=== PATIENT | female | born 1980 | race Caucasian/White ===

== ENCOUNTER 2019-11-28 12:17 | Emergency (ER) | payer MEDICARE, MEDICAID, SELFPAY ==
[2019-11-28 13:01] VITALS: BP 95/55; PULSE 91; RESP 18; TEMP 37.3; O2SAT 97; BMI 33.2
[2019-11-28] MEDS: Ibuprofen 600 MG TABLET PO (14:05)
[2019-11-28] MEDS: Lidocaine HCl 2 % MPF 5 ML VIAL SUBCUT (14:07)
--- NOTE | 2019-11-28 14:49 | ED_ITS ---
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 Denies any other injuries. Not UTD on tetanus. Related Data Previous Rx's Medication Instructions Recorded naproxen 500 mg PO BID PRN #14 tab 11/28/19 Allergies Allergy/AdvReac Type Severity Reaction Status Date / Time morphine [MORPHINE] Allergy Intermediate NAUSEA, Verified 11/28/19 12:59 rash oxycodone [From PERCOCET] Allergy Intermediate ITCHY, rash Verified 11/28/19 12:59 penicillin V Allergy Intermediate hives Verified 11/28/19 12:59 simvastatin Allergy Intermediate rash Verified 11/28/19 12:59 hydrocodone [From VICODIN] Allergy Mild RASH Verified 11/28/19 12:59 amoxicillin [Amoxicillin] Allergy Unknown UNKNOWN Verified 11/28/19 12:59 Vicodin Allergy Intermediate rash Uncoded 11/28/19 12:59 Review of Systems Review of Systems: Yes all other systems are reviewed and are negative PMFSH Past Medical History Attestation statement: The following information was validated with the patient. Medical History Anxiety Depression Diabetes Migraine OCD (obsessive compulsive disorder) Panic disorder PTSD (post-traumatic stress disorder) Surgical History History of ankle surgery Previous section Social History Social History Advance Directives: No Advance Directives Information Provided: Yes Physical Exam Vital Signs: Vital Signs: Vital Signs Temp Pulse Resp BP Pulse Ox 11/28/19 13:01 99.2 F 91 18 95/55 L 97 Body Mass Index 33.2 Const: General: cooperative, healthy appearing, comfortable, no acute distress, well developed, alert, awake and Physically active Nutritional Appearance: average body habitus and well nourished Orientation/consciousness: patient oriented x3 Limitations: no limitations HENMT: Head: Yes normal to inspection, Yes No palpable skull fracture present, Yes normocephalic and Yes atraumatic Ears: hearing grossly normal bilaterally General nose exam: Normal external nose present Face and sinus: Yes normal facial exam Mouth: moist mucous membranes Eyes: General: appearance normal, both eyes and all related structures Visual Mejia: normal visual mejia by confrontation Alignment and Position: alignment normal Periorbital: periorbital findings normal Eyelids: Yes eyelids normal Conjunctivae: conjunctivae normal Sclerae: sclerae normal Pupils: Equal, round and reactive pupils present EOM: EOMs intact bilaterally Neck: Neck: Yes normal visual inspection, Yes full ROM, Yes no lymphadenopathy, Yes no meningeal signs, Yes trachea midline and Yes supple Chest: Chest palpation & inspection: normal inspection of the chest Resp: Effort & Inspection: normal respiratory effort and able to speak in complete sentences Auscultation: clear to auscultation bilaterally, no crackles, no rales, no rhonchi and no wheezes Cardio: Rate: regular rate Rhythm: regular rhythm Heart sounds: S1 normal heart sound present and S2 normal heart sound present Peripheral pulses: Peripheral pulses 2+ throughout GI: Inspection: Yes normal to inspection Palpation (GI): Soft to palpation, nontender and No hepatosplenomegaly present Percussion: Yes normal to percussion Auscultation: normal bowel sounds : General: Yes no CVA tenderness Back/Spine/Pelvis: Back: no CVA tenderness Cervical Spine: normal cervical lordosis and cervical ROM normal Thoracic/Lumbar Spine: thoracic and lumbar spine normal to inspection and thoraco-lumbar ROM normal Skin: General skin exam: no rashes or lesions noted, elasticity normal and turgor normal Trauma: no lacerations or abrasions Wounds: no wounds Hair: normal Nails: normal Neuro: General: patient oriented x3 and no meningeal signs Cranial nerves: Yes CN's II-XII intact bilaterally and Yes Equal, round and reactive pupils present Cognition (Neuro): normal cognition Gait exam (Neuro): Normal gait present Motor exam (neuro): 5/5 motor strength present throughout Extrem: General: Yes normal to inspection, Yes full ROM, Yes capillary refill normal, Yes no clubbing, cyanosis or edema, No no pedal edema, No no calf tenderness, Yes normal gait and No edema Right upper extremity: normal to inspection, full ROM, normal capillary refill and Extremity exam: right hand Details: laceration palm palmar aspect proximal Details: linear, superficial and involving subcutaneous tissue; not actively bleeding, not with foreign body present, not contaminated, not involving muscle tissue, without motor nerve function intact and without sensation intact; no edema Left upper extremity: normal to inspection, full ROM and normal capillary refill; no edema Right lower extremity: normal to inspection, full ROM and normal capillary refill; no edema Left lower extremity: normal to inspection, full ROM and normal capillary refill; no edema Psych: Appearance: grossly normal and well kempt Mental Status: mental status grossly normal Speech and movement: Normal speech and movement present and Clear speech present Affect: normal affect Attitude: cooperative Thought process: Normal thought process present Thought content: Normal thought content present Insight: Good insight present (Psych) Judgement: Good judgement present (Psych) Procedures Laceration Laceration 1: Site: hand Side (If applicable): right Size (cm): 1 Description: linear Depth: simple, single layer Local Anesthetic: lidocaine 2% Amount of anesthesia used (mL): 5 Pre-repair: wound explored, irrigated extensively and deep structures intact Skin layer closed with: nylon Size (cm): 4-0 Number of sutures: 3 Technique: simple, interrupted Discharge Plan Discharge Clinical Impression: Laceration Patient Disposition: Home, Self-Care Instructions: Laceration (ED) Prescriptions: New naproxen 500 mg tablet 500 mg PO BID PRN (Reason: pain) Qty: 14 RF: 0 Referrals: Chitra Ko PA [Emergency Midlevel Provider] - 10 days (for suture removal ) Print Language: Sami
--- NOTE | 2019-11-28 14:54 | PC.NURSE ---
Report given to oncoming nurse, Keri BOX. No further questions from Keri BOX. Provider aware.
== END 2019-11-28 15:10 | disposition home or self-care (01) ==
PROVIDERS: Emergency Provider Emergency Medicine; PCP Internal Medicine
DX: S61.411A Laceration without foreign body of right hand, initial encounter (principal); W26.8XXA Contact with other sharp object(s), not elsewhere classified, initial encounter; E11.9 Type 2 diabetes mellitus without complications; F17.200 Nicotine dependence, unspecified, uncomplicated; Y93.G3 Activity, cooking and baking; Y92.010 Kitchen of single-family (private) house as the place of occurrence of the external cause; Y99.9 Unspecified external cause status; Z79.899 Other long term (current) drug therapy
CPT/HCPCS: 12001; 90471; 90715; 99284

== ENCOUNTER 2019-12-08 10:27 | Emergency (ER) | payer MEDICARE, MEDICAID, SELFPAY ==
--- NOTE | 2019-12-08 10:32 | ED.RECABL ---
HPI - Recheck/Abnormal Lab/Rx General Chief Complaint: Wound/Laceration Stated Complaint: suture removal Time Seen by Provider: 12/08/19 10:31 Source: patient Mode of arrival: ambulatory Limitations: no limitations History of Present Illness HPI narrative: 39-year-old female with a past medical history of migraine headaches, PTSD, panic disorder, OCD, depression, anxiety and diabetes presenting to the ED for suture removal. Was treated in the ED on 11/28/2019 and sutures placed to right hand [address] Patient given naproxen and is taking as prescribed. Not given any antibiotics. Reports she noticed some mild increased pain and surrounding erythema that started yesterday. Denies any fevers, chills, drainage and weakness. Patient denies any other symptoms complaints or concerns at this time. Related Data Previous Rx's Medication Instructions Recorded naproxen 500 mg PO BID PRN #14 tab 11/28/19 meloxicam 7.5 mg tablet 7.5 mg PO DAILY #30 tab 11/30/19 doxycycline monohydrate 100 mg PO BID 10 Days #20 cap 12/08/19 Allergies Allergy/AdvReac Type Severity Reaction Status Date / Time morphine [MORPHINE] Allergy Intermediate NAUSEA, Verified 11/28/19 12:59 rash oxycodone [From PERCOCET] Allergy Intermediate ITCHY, rash Verified 11/28/19 12:59 penicillin V Allergy Intermediate hives Verified 11/28/19 12:59 simvastatin Allergy Intermediate rash Verified 11/28/19 12:59 hydrocodone [From VICODIN] Allergy Mild RASH Verified 11/28/19 12:59 amoxicillin [Amoxicillin] Allergy Unknown UNKNOWN Verified 11/28/19 12:59 Vicodin Allergy Intermediate rash Uncoded 11/28/19 12:59 Review of Systems Review of Systems: Yes all other systems are reviewed and are negative PMFSH Past Medical History Medical History Anxiety Depression Diabetes Migraine OCD (obsessive compulsive disorder) Panic disorder PTSD (post-traumatic stress disorder) Surgical History History of ankle surgery Previous section Social History Social History Alcohol intake: never Smoking Status: Current every day smoker Substance Use Type: Marijuana Substance Use Frequency: Occasionally Physical Exam Vital Signs: Vital Signs: Vital Signs Temp Pulse Resp BP Pulse Ox 12/08/19 10:33 98.1 F 89 16 151/88 H 100 Body Mass Index 33.2 vital signs have been reviewed as normal and appeared to be correct. Blood pressure normal. Heart rate normal. Respiration rate normal. Temperature normal. Oxygen saturation normal. Appearance: Alert. Oriented X3. No acute distress. Head: Normal external exam. Normocephalic. Eyes: EOMI. Conjunctiva and sclera normal. Eyelids normal. ENT: Moist mucous membranes. Neck: Normal inspection. Neck supple. FROM. CVS: Normal heart rate and rhythm. Heart sound normal. No murmurs noted. Pulses normal throughout. Respiratory: No respiratory distress. Painless inspiration. Breath sounds normal. No wheezes/rales/rhonchi noted. Chest nontender. No accessory muscle usage noted or decreased air movement noted. Abdomen: Soft and nontender. Bowel sounds normal in all 4 quadrants. No distention noted. No organomegaly noted. No visible injury noted. Back: No CVA tenderness. Full range of motion noted. Skin: Skin warm and dry. Normal skin color. Normal skin turgor. No rashes noted. Right hand between the thumb and index finger there is well-healing laceration with [address] with mild surrounding erythema and tender to palpation. No fluctuance or drainage noted or streaking. Extremities: No lower extremity edema. Extremities exhibit normal range of motion. Extremities nontender. Neuro: Oriented X 3. No motor deficit. No sensory deficit. Reflexes normal. Procedures Procedure Narrative Procedure Narrative: Sutures to right hand between the thumb and the index finger. Three sutures removed. Mild surrounding erythema. No drainage or streaking noted. Patient tolerated procedure well. Wound was cleaned after sutures removed. No complications. Discharge Plan Discharge Clinical Impression: Encounter for removal of sutures Cellulitis Qualifiers: Site of cellulitis: extremity Site of cellulitis of extremity: upper extremity Laterality: right Qualified Code(s): L03.113 - Cellulitis of right upper limb Patient Disposition: Home, Self-Care Instructions: Cellulitis (ED) Prescriptions: New doxycycline monohydrate 100 mg capsule 100 mg PO BID 10 Days Qty: 20 RF: 0 No Action meloxicam 7.5 mg tablet 7.5 mg PO DAILY Qty: 30 RF: 0 naproxen 500 mg tablet 500 mg PO BID PRN (Reason: pain) Qty: 14 RF: 0 Referrals: Po,Gurdeep Del Angel MD [Primary Care Provider] - 2 days Print Language: Eritrean
[2019-12-08 10:33] VITALS: BP 151/88; PULSE 89; RESP 16; TEMP 36.7; O2SAT 100; BMI 33.2
--- NOTE | 2019-12-08 10:42 | PC.NURSE ---
sutures removed by gilbert albert w/o apparent incident
== END 2019-12-08 11:00 | disposition home or self-care (01) ==
LOC: HO.ED 10:54
PROVIDERS: Emergency Provider Emergency Medicine; PCP Internal Medicine
DX: Z48.02 Encounter for removal of sutures (principal); E11.9 Type 2 diabetes mellitus without complications; F17.200 Nicotine dependence, unspecified, uncomplicated
CPT/HCPCS: 99283; 99284

== ENCOUNTER 2020-02-19 14:20 | Emergency (ER) | payer MEDICARE, MEDICAID, SELFPAY ==
[2020-02-19 16:06] VITALS: BP 168/87; PULSE 121; RESP 18; TEMP 37.1; O2SAT 95; BMI 35.1
--- NOTE | 2020-02-19 16:34 | ED.SKABFB ---
HPI - Skin/Abscess/Foreign Bdy General Chief complaint: Skin/Abscess/Foreign Body Stated complaint: cyst Time Seen by Provider: 02/19/20 16:09 Source: patient Mode of arrival: ambulatory History of Present Illness HPI narrative: 39 y.o. F with PMH of migraine headaches, PTSD, panic disorder, OCD, depression, anxiety and diabetes presenting to the emergency department with concern for wound to her abdomen. She states she has been having these over the past year and is unsure why. This spot she has underneath her xiphoid has been there for the past week and is not draining, very painful. She denies fevers or vomiting. She states the area is very sensitive. She does pick at her wounds on her abdomen. Denies IVDU. Related Data Home Medications Medication Instructions Recorded Confirmed clonazepam 1 mg tablet 1 mg PO BID 12/31/19 12/31/19 clonidine HCl 0.1 mg tablet 0.1 mg PO BEDTIME 12/31/19 12/31/19 empagliflozin 25 mg tablet 25 mg PO DAILY 12/31/19 12/31/19 insulin glargine 100 unit/mL (3 24 unit SUBCUT QAM ml 12/31/19 12/31/19 mL) subcutaneous pen quetiapine 100 mg tablet 400 mg PO BEDTIME tab 12/31/19 12/31/19 venlafaxine 150 mg 150 mg PO DAILY 12/31/19 12/31/19 capsule,extended release 24 hr meloxicam 7.5 mg tablet 7.5 mg PO DAILY 02/07/20 Previous Rx's Medication Instructions Recorded naproxen 500 mg PO BID PRN #14 tab 11/28/19 metformin 1,000 mg tablet 1,000 mg PO BID #60 tab 12/24/19 cyclobenzaprine 5 mg tablet 5 mg PO TID PRN #20 tab 01/05/20 albuterol sulfate 90 mcg/actuation 2 puff INHALATION Q4-6H PRN 30 02/03/20 aerosol inhaler Days #8.5 g Allergies Allergy/AdvReac Type Severity Reaction Status Date / Time morphine [MORPHINE] Allergy Intermediate NAUSEA, Verified 12/29/19 06:36 rash oxycodone [From PERCOCET] Allergy Intermediate ITCHY, rash Verified 12/29/19 06:36 penicillin V Allergy Intermediate hives Verified 12/29/19 06:36 simvastatin Allergy Intermediate rash Verified 12/29/19 06:36 hydrocodone [From VICODIN] Allergy Mild RASH Verified 12/29/19 06:36 amoxicillin [Amoxicillin] Allergy Unknown UNKNOWN Verified 11/28/19 12:59 Review of Systems Constitutional: Constitutional: Denies fever(s) and Denies headache(s) Eyes: Eyes: Reports no additional eye complaints ENT: Denies headache(s) Cardiovascular: Cardiovascular: Denies chest pain Respiratory: Respiratory: Denies cough Gastrointestinal: Gastrointestinal: Denies vomiting Musculoskeletal: Musculoskeletal: Reports no additional musculoskeletal complaints Integumentary/Breasts: Skin/Breast: Reports rash Neurologic: Denies headache(s) Hematologic/Lymphatic: Hematologic/Lymphatic: Denies easy bleeding PMFSH Past Medical History Medical History Anxiety and depression Asthma Crohn's disease Hypercholesterolemia Hypertension Migraine Obesity (BMI 30-39.9) OCD (obsessive compulsive disorder) Panic disorder PTSD (post-traumatic stress disorder) Seizure disorder Tobacco abuse Type 2 diabetes mellitus with hyperglycemia, with long-term current use of insulin Surgical History H/O arthroscopy H/O bilateral breast reduction surgery History of ankle surgery Previous section Family History Family History (Updated 12/29/19 @ 06:41 by NASRIN Soto) Father CVD (cerebrovascular disease) Diabetes Hypertension Mother Depression Chronic mental illness Maternal Grandmother Myocardial infarction CVD (cerebrovascular disease) Breast cancer Maternal Aunt Liver cancer Social History Social History Alcohol intake: never Smoking Status: Current every day smoker Substance Use Type: Marijuana Advance Directives: No Advance Directives Information Provided: Yes Physical Exam Vital Signs: Vital Signs: Last Vital Signs Temp 98.9 F 02/19/20 17:14 Pulse 107 H 02/19/20 17:14 Resp 16 02/19/20 17:14 BP 131/74 02/19/20 17:14 Pulse Ox 95 02/19/20 17:14 Body Mass Index 35.1 Const: Other: sitting upright, anxious Orientation/consciousness: patient oriented x3 HENMT: Head: Yes atraumatic Eyes: Pupils: Equal, round and reactive pupils present Neck: Neck: Yes supple Chest: Chest palpation & inspection: normal inspection of the chest Resp: Effort & Inspection: normal respiratory effort and able to speak in complete sentences Cardio: Rate: regular rate GI: Inspection: Yes obesity Back/Spine/Pelvis: Other: Normal range of motion Skin: Other: Multiple pustular lesions to the abdomen along the breast line, he has 1 area of induration to her central abdomen underneath her xiphoid process, no purulence, tenderness to palpation, erythema present also has a fluctuant abscess underneath left breast along the abdominal wall, mild tenderness to palpation Neuro: General: patient oriented x3 Cranial nerves: Yes Equal, round and reactive pupils present Extrem: General: Yes normal to inspection Course Course Course Narrative: 17:56- sign out given to Ozzie Lord, pending labs, repeat glucose POC. Will need antibiotics. Procedures Abscess I/D Site: abdomen Side (if applicable): left Local Anesthetic: other anesthetic (LMX) Technique: needle aspiration (small amount into the syringe, able to manually decompress ) Sent for culture/gram staining?: No Irrigation: No Packing used?: none Complications: pain MDM - Skin/Abscess/Foreign Bdy MDM Narrative Medical decision making narrative: 39-year-old female presenting to the emergency department for concerns of an abscess to her abdomen Vital significant for tachycardia- HR 121, nontoxic appearing, hemodynamically stable will check glucose POC since pt. is a diabetic. Will plan to needle decompress the wound on the left side and manually decompress her central abscess per attending (Dr. Wiseman) recommendation. Will need PO antibiotics. Tachycardia most likely secondary to her anxiety, will recheck once she gets analgesia. Discussed case with Dr. Wiseman who also evaluated the pt. Patient had LMX placed on the abscess areas. Needle decompression provided a trach for manual decompression of the left abscess. The abscess under her xiphoid process I was able to manually decompressed somewhat however patient endorses significant pain despite topical analgesia and asked me to stop. I discussed this with the attending and because of the location of the area will defer incision and drainage and refer her to general surgery. Will start her on antibiotics and give her general surgery follow-up. POC was checked and patient has a blood sugar in the high 300s, she reports compliance with her insulin. However because of her tachycardia and high blood sugar will check basic labs including lactic to r/o systemic illness. Will defer blood culture since she is afebrile. Will also plan to give her a liter fluids in the ED. Lab Data Labs: Lab Results 02/19/20 Range/Units 17:21 POC Glucose 381 H* (60-115) mg/dL Discharge Plan Discharge Clinical Impression: Hyperglycemia, Abscess Patient Disposition: Home, Self-Care Instructions: Abscess (ED) Additional Instructions: We are giving you antibiotics to go home with. Your blood sugar was elevated so we checked screening lab tests. We gave you some fluids. Please return to the emergency department if your symptoms do not improve after 48 hours of taking the antibiotics, worsening redness, worsening swelling, fevers, vomiting, or any other concerning symptoms. Place warm compresses 4 times a day to the sites to allow drainage. Keep the areas clean and dry. You may use the chlorohexadine soap once these areas area healed. Prescriptions: No Action metformin 1,000 mg tablet 1,000 mg PO BID Qty: 60 RF: 0 cyclobenzaprine 5 mg tablet 5 mg PO TID PRN (Reason: muscle spasm) Qty: 20 RF: 0 albuterol sulfate 90 mcg/actuation HFA aerosol inhaler 2 puff inhalation Q4-6H PRN (Reason: for muscle spasm) 30 Days Qty: 8.5 RF: 5 meloxicam 7.5 mg tablet 7.5 mg PO DAILY RF: 0 naproxen 500 mg tablet 500 mg PO BID PRN (Reason: pain) Qty: 14 RF: 0 venlafaxine [Effexor XR] 150 mg capsule,extended release 24hr 150 mg PO DAILY RF: 0 clonazepam 1 mg tablet 1 mg PO BID RF: 0 clonidine HCl 0.1 mg tablet 0.1 mg PO BEDTIME RF: 0 Lantus Solostar U-100 Insulin 100 unit/mL (3 mL) insulin pen 24 unit subcut QAM RF: 0 Jardiance 25 mg tablet 25 mg PO DAILY RF: 0 quetiapine [Seroquel] 100 mg tablet 400 mg PO BEDTIME RF: 0 Referrals: Shanel Adorno MD [Physician] - 2 days (call to schedule an appointment for further treatment of your abscess )
[2020-02-19] MEDS: Lidocaine 4 % Cream KIT 1 APPL TOPICAL (16:43)
[2020-02-19] MEDS: Acetaminophen 325 MG TABLET 650 MG PO (16:50)
[2020-02-19] MEDS: Ibuprofen 600 MG TABLET PO (16:50)
[2020-02-19 17:14] VITALS: BP 131/74; PULSE 107; RESP 16; TEMP 37.2; O2SAT 95
[2020-02-19 17:25] LABS: Glucose, Whole Blood 381 mg/dL (60-115)
--- NOTE | 2020-02-19 17:33 | PC.NURSE ---
LMX ALREADY APPLIED PT ABCESS AREA DRAINED BY VIRI GATES. PT UNBLE TO TOLERATE 2ND ABCESS DRAINAGE.
[2020-02-19 18:00] VITALS: BP 136/77; PULSE 86; RESP 14; TEMP 37.2; O2SAT 97
[2020-02-19] MEDS: 0.9 % Sodium Chloride 1,000 ML 999 ML IVCONT (18:48)
[2020-02-19 18:51] LABS: Basophils Absolute Auto 0.1 X10*3/uL (0.0-0.2); Basophils Percent Auto 0.4 % (0-2); Eosinophils Absolute Auto 0.2 X10*3/uL (0.0-0.4); Eosinophils Percent Auto 1.4 % (0-4); Hematocrit 41.8 % (37-47); Hemoglobin 13.8 g/dl (12.0-16.0); Imm Gran Abs Auto 0.12 X10*3/uL (0.00-0.03); Imm Gran Pct Auto 0.7 % (0.0-0.4); Lymphocytes Absolute Auto 3.3 X10*3/uL (1.2-4.9); Lymphocytes Percent Auto 18.8 % (20-40); MANUAL DIFF FLAG NO; Mean Corpuscular Hemoglobin 29.8 pg (27.0-33.0); Mean Corpuscular Volume 90.3 fL (80-98); Mean Platelet Volume 11.1 fL (9.4-12.3); Monocytes Absolute Auto 1.3 X10*3/uL (0.1-1.2); Monocytes Percent Auto 7.5 % (2-11); Neutrophils Absolute Auto 12.3 X10*3/uL (2.0-8.3); Neutrophils Percent Auto 71.2 % (45-73); Platelet Count 238 X10*3/uL (160-400); Red Blood Count 4.63 X10*6/uL (4.20-5.50); Red Cell Distribution Width 12.8 % (11.0-16.0); White Blood Count 17.3 X10*3/uL (4.8-10.8)
[2020-02-19 19:05] LABS: Acetone, serum QL Small (Negative)
[2020-02-19 19:10] LABS: Anion Gap 16 (12-20); Blood Urea Nitrogen 8 mg/dL (9-16); Calcium 8.9 mg/dL (8.4-10.2); Carbon Dioxide 26 mmol/L (22-29); Chloride 98 mmol/L (96-108); Creatinine Clr Calc Pharmacy 98.9; Estimated Glomerular Filt Rate > 60; Glucose Random 292 mg/dL (60-115); Potassium 4.2 mmol/l (3.3-5.1); Sodium 136 mmol/L (135-145)
[2020-02-19 20:02] LABS: Glucose, Whole Blood 253 mg/dL (60-115)
== END 2020-02-19 20:21 | disposition home or self-care (01) ==
PROVIDERS: Physician Assistant Medical; Emergency Provider Emergency Medicine; PCP Internal Medicine
DX: L02.211 Cutaneous abscess of abdominal wall (principal); E11.65 Type 2 diabetes mellitus with hyperglycemia; Z79.4 Long term (current) use of insulin; I10 Essential (primary) hypertension; F17.210 Nicotine dependence, cigarettes, uncomplicated
CPT/HCPCS: 10060; 36415; 80048; 82009; 82947; 83605; 85025; 96360; 99284

== ENCOUNTER 2020-06-01 12:41 | Outpatient (RCR) | payer MEDICARE, MEDICAID, SELFPAY | END 2020-06-22 11:33 | disposition home or self-care (01) | LOC: HO.WCC 12:41 | PROVIDERS: Visit Provider Surgery | DX: E11.9 Type 2 diabetes mellitus without complications (principal); T21.31XD Burn of third degree of chest wall, subsequent encounter; T31.0 Burns involving less than 10% of body surface; X08.8XXD Exposure to other specified smoke, fire and flames, subsequent encounter; L02.432 Carbuncle of left axilla | CPT/HCPCS: 11042; 16020; 99204; 99212; 99213 ==

== ENCOUNTER 2020-07-08 18:38 | Emergency (ER) | payer MEDICARE, MEDICAID, SELFPAY ==
--- NOTE | ~2020-07-08 | XR_ITS ---
EXAMINATION: XR FOREARM, LEFT CLINICAL INFORMATION: Wound COMPARISON: None TECHNIQUE: AP and lateral views of the left forearm were obtained. FINDINGS: No fracture or dislocation of the radial or ulnar seen. There is soft tissue irregularity of the volar soft tissues of the distal forearm. No radiopaque foreign body. XR/XR forearm LT 2V IMPRESSION: Soft tissue irregularity of the volar soft tissues of the distal forearm but no radiopaque foreign body or fracture seen.
[2020-07-08 18:44] VITALS: BP 137/85; PULSE 125; RESP 20; TEMP 36.9; O2SAT 96; BMI 35.7
--- NOTE | 2020-07-08 20:35 | ED_ITS ---
HPI - General Adult General Chief complaint: General Medical Stated complaint: Red inflamed skin Time Seen by Provider: 07/08/20 23:03 Source: patient Mode of arrival: ambulatory Limitations: no limitations History of Present Illness HPI narrative: 39-year-old female presents with wound to left forearm. States that there is some erythema around the wound, and reports that her aunt who is a wound care provider states that she needs IV antibiotics. She does have intermittent subjective fevers and chills, and has pain to the left forearm. She does not report any other symptoms at this time. Denies chest pain or pressure, palpitations, shortness of breath, abdominal pain, abdominal distention, dysuria, hematuria, nausea, vomiting, diarrhea, constipation, melena, hematochezia, any other concerning symptoms. She does have full range of motion to all extremities, does not report any swelling. Onset (ago): day(s) (Three) Location: left and upper extremity Radiation: non-radiation Severity: moderate Severity scale (1-10): 7 Quality: burning and aching Pain Consistency: constant Relieving factors: none Associated symptoms: fever/chills Related Data Home Medications Medication Instructions Recorded Confirmed clonazepam 1 mg tablet 1 mg PO BID 12/31/19 06/01/20 clonidine HCl 0.1 mg tablet 0.1 mg PO BEDTIME 12/31/19 06/01/20 insulin glargine 100 unit/mL (3 24 unit SUBCUT QAM ml 12/31/19 06/01/20 mL) subcutaneous pen quetiapine 100 mg tablet 400 mg PO BEDTIME tab 12/31/19 06/01/20 venlafaxine 150 mg See Rx Instructions PO DAILY 06/01/20 06/01/20 capsule,extended release 24 hr Previous Rx's Medication Instructions Recorded metformin 1,000 mg tablet 1,000 mg PO BID #60 tab 12/24/19 cyclobenzaprine 5 mg tablet 5 mg PO TID PRN #20 tab 01/05/20 cephalexin [Keflex] 500 mg PO Q8H 10 Days #30 cap 02/19/20 albuterol sulfate 90 mcg/actuation 2 puff INHALATION Q4-6H PRN 30 05/26/20 aerosol inhaler Days #8.5 g empagliflozin 25 mg tablet 25 mg PO DAILY #30 tab 05/26/20 pen needle, diabetic 31 gauge x #50 ea 05/26/20 5/16 cephalexin 500 mg tablet 500 mg PO QID 10 Days #40 tab 05/30/20 silver sulfadiazine 1 % topical 1 appl TOPICAL DAILY #25 g 05/30/20 cream doxycycline monohydrate 100 mg 100 mg PO BID 10 Days #20 cap 05/31/20 capsule omeprazole 20 mg capsule,delayed 20 mg PO DAILY #30 cap 06/01/20 release sumatriptan succinate 50 mg tablet See Rx Instructions PO .COMPLEX 06/30/20 #10 tab doxycycline monohydrate 100 mg PO BID 10 Days #20 tab 07/09/20 Allergies Allergy/AdvReac Type Severity Reaction Status Date / Time morphine [MORPHINE] Allergy Intermediate NAUSEA, Verified 07/08/20 18:47 rash oxycodone [From PERCOCET] Allergy Intermediate ITCHY, rash Verified 07/08/20 18:47 penicillin V Allergy Intermediate hives Verified 07/08/20 18:47 simvastatin Allergy Intermediate rash Verified 07/08/20 18:47 hydrocodone [From VICODIN] Allergy Mild RASH Verified 07/08/20 18:47 amoxicillin [Amoxicillin] Allergy Unknown UNKNOWN Verified 07/08/20 18:47 Review of Systems Review of Systems: Constitutional: No Fever, No Chills ENT/Mouth: No Ear Pain, No Hoarseness, No sore throat Eyes: No Eye Pain, No Swelling, No Redness, No Foreign Body Cardiovascular: No Chest Pain, No SOB Respiratory: No Cough, No Dyspnea Gastrointestinal: No Nausea, No Vomiting, No Diarrhea, No abdominal Pain Genitourinary: No Dysuria, No Hematuria Musculoskeletal: positive left forearm pain, No Myalgias, No Joint Swelling Skin: Positive wound to left forearm, No Skin lacerations, No rash Neuro: No Weakness, No Numbness, No Paresthesias, No Loss of Consciousness, No Dizziness, No Headache Psych: No Anxiety/Panic, No Depression Heme/Lymph: no easy bruising, no Lymphadenopathy Endocrine: No Polyuria, No Polydipsia Yes all other systems are reviewed and are negative [facility] Past Medical History Attestation statement: The following information was validated with the patient. Source: old records reviewed Medical History Anxiety and depression Asthma Crohn's disease Hypercholesterolemia Hypertension Migraine Obesity (BMI 30-39.9) OCD (obsessive compulsive disorder) Panic disorder PTSD (post-traumatic stress disorder) Seizure disorder Tobacco abuse Type 2 diabetes mellitus with hyperglycemia, with long-term current use of insulin Surgical History H/O arthroscopy H/O bilateral breast reduction surgery History of ankle surgery Previous section Family History Family History Father CVD (cerebrovascular disease) Diabetes Hypertension Mother Depression Chronic mental illness Maternal Grandmother Myocardial infarction CVD (cerebrovascular disease) Breast cancer Maternal Aunt Liver cancer Social History Social History Alcohol intake: never Smoking Status: Current every day smoker Cigarettes Per Day: 6 Substance Use Type: Marijuana Advance Directives: No Advance Directives Information Provided: No Patient : No Physical Exam Vital Signs: Vital Signs: Last Vital Signs Temp 96.9 F 07/08/20 22:06 Pulse 100 07/08/20 22:06 Resp 18 07/08/20 22:06 BP 137/69 07/08/20 22:06 Pulse Ox 97 07/08/20 22:06 Body Mass Index 35.7 Appearance: Alert. Oriented X3. No acute distress. Eyes: Pupils equal, round and reactive to light. ENT: Pharynx normal. Neck: Normal inspection. Neck supple. CVS: Normal heart rate and rhythm. Pulses normal. Respiratory: No respiratory distress. Breath sounds normal. Abdomen: Soft and nontender. Skin: 0.5 mm in diameter circular wound to the mid forearm, pink skin circumferentially approximately 3 cm around this ulceration. Skin warm and dry. Normal skin color. Normal skin turgor. Extremities: Full range of motion to all extremities, brisk capillary refill and equal pulses. No indication of tendon injury. Neuro: No motor deficit. No sensory deficit. Course Course Course Narrative: 39-year-old female presents with wound to the left forearm. States that her mother or her aunt is a wound care provider at this hospital and they recommended that she present to the emergency department for evaluation and possible IV antibiotics. Will order CBC, Chem 7, lactic, cultures and x-ray of the left forearm. Wound is circular, ulcerated, with erythema approximately 3 cm in diameter surrounding the approximately 2 mm wound. Patient stated that she has in 10 on 10 pain, asking for Dilaudid, stating that that is the only medication that wor ks for her. She was updated that Dilaudid is inappropriate care. She was offered Motrin which she accepted. White count is elevated at 18.4, lactic acid is 1.4 x-ray show soft tissue inflammation without foreign body or bone involvement. Discussion with hospitalist regarding plan of care. 10:30 p.m. Hospitalist does not feel that patient meets admission criteria as patient is not septic. Will complete IV antibiotics and then discharge home with p.o. antibiotics. Will refer to Wound Clinic. Patient verbalized understanding of and agrees to plan of care discharge home. Consultations Consultation #1: [facility] Medical Decision Making Lab Data Result diagrams: 07/08/20 21:32 07/08/20 21:32 Labs: Lab Results 07/08/20 07/08/20 07/08/20 Range/Units 21:32 21:32 21:36 WBC 18.4 H (4.8-10.8) X10*3/uL RBC 4.89 (4.20-5.50) X10*6/uL Hgb 15.0 (12.0-16.0) g/dl Hct 45.7 (37-47) % MCV 93.5 (80-98) fL MCH 30.7 (27.0-33.0) pg MCHC 32.8 (31.0-35.0) g/dl RDW 13.1 (11.0-16.0) % Plt Count 235 (160-400) X10*3/uL MPV 11.2 (9.4-12.3) fL Immature Gran % (Auto) Cancelled Neut % (Auto) Cancelled Lymph % (Auto) Cancelled Grundy % (Auto) Cancelled Eos % (Auto) Cancelled Baso % (Auto) Cancelled Lymph # (Auto) Cancelled Grundy # (Auto) Cancelled Eos # (Auto) Cancelled Baso # (Auto) Cancelled Abs Immat Gran (auto) Cancelled Absolute Neuts (auto) Cancelled Absolute Nucleated RBC 0.000 (0.0-0.012) X10*3/uL Nucleated RBC % (auto) 0.0 (0.0-0.2) /100WBC Neutrophils % (Manual) 64 (45-73) % Band Neutrophils % 2 L (3-5) % Lymphocytes % (Manual) 27 (20-40) % Monocytes % (Manual) 5 (2-11) % Eosinophils % (Manual) 1 (0-4) % Basophils % (Manual) 1 (0-1) % Abs Neuts (Manual) 12.1 H (2.2-7.9) X10*3/uL Lymphocytes # (Manual) 5.0 H (0.6-4.8) X10*3/uL Monocytes # (Manual) 0.9 (0.0-1.2) X10*3/uL Eosinophils # (Manual) 0.2 (0.0-0.8) X10*3/UL Basophils # (Manual) 0.2 (0.0-0.3) X10*3/uL Toxic Vacuolation PRESENT Platelet Estimate NORMAL (NORMAL) Plt Morphology Comment NORMAL RBC Morphology NORMAL Sodium 139 (135-145) mmol/L Potassium 3.9 (3.3-5.1) mmol/L Chloride 104 (96-108) mmol/L Carbon Dioxide 23 (22-29) mmol/L Anion Gap 16 (12-20) BUN 11 (9-16) mg/dL Creatinine 0.74 (0.5-1.4) mg/dL Estim Creat Clear Calc 98.4 Estimated GFR > 60 Random Glucose 199 H (60-115) mg/dL Lactic Acid 1.4 (0.5-2.0) mmol/L Calcium 9.4 (8.4-10.2) mg/dL Discharge Plan Discharge Clinical Impression: Cellulitis Qualifiers: Site of cellulitis: extremity Site of cellulitis of extremity: upper extremity Laterality: left Qualified Code(s): L03.114 - Cellulitis of left upper limb Patient Disposition: Home, Self-Care Instructions: Cellulitis (ED) Additional Instructions: You were evaluated for wound to the left forearm. X-rays are negative for osteo. We discussed this case with the hospitalist, you do not fit the criteria for admission. Please take doxycycline every 12 hours for the next 10 days. Please be aware that doxycycline has a significant skin reaction when exposed to sunlight. Please wear long sleeves and hat when going outside. Use Tylenol or Motrin as needed for pain management. At this time we cannot prescribe any narcotics for this illness. Thank you for choosing this emergency department for evaluation. Please follow-up with primary care physician as needed. Return to the emergency department for any new, concerning, or worsening symptoms. Prescriptions: New doxycycline monohydrate 100 mg tablet 100 mg PO BID 10 Days Qty: 20 RF: 0 No Action metformin 1,000 mg tablet 1,000 mg PO BID Qty: 60 RF: 0 cyclobenzaprine 5 mg tablet 5 mg PO TID PRN (Reason: muscle spasm) Qty: 20 RF: 0 albuterol sulfate 90 mcg/actuation HFA aerosol inhaler 2 puff inhalation Q4-6H PRN (Reason: for muscle spasm) 30 Days Qty: 8.5 RF: 5 Jardiance 25 mg tablet 25 mg PO DAILY Qty: 30 RF: 3 (DME) pen needle, diabetic [BD Ultra-Fine Short Pen Needle] 31 gauge x 5/16 needle See Rx Instructions .ROUTE .MEDSUPPLY Qty: 50 RF: 5 silver sulfadiazine [Silvadene] 1 % cream 1 appl topical DAILY Qty: 25 RF: 0 doxycycline monohydrate 100 mg capsule 100 mg PO BID 10 Days Qty: 20 RF: 0 sumatriptan succinate 50 mg tablet See Rx Instructions PO .COMPLEX Qty: 10 RF: 1 cephalexin [Keflex] 500 mg capsule 500 mg PO Q8H 10 Days Qty: 30 RF: 0 clonazepam 1 mg tablet 1 mg PO BID RF: 0 clonidine HCl 0.1 mg tablet 0.1 mg PO BEDTIME RF: 0 Lantus Solostar U-100 Insulin 100 unit/mL (3 mL) insulin pen 24 unit subcut QAM RF: 0 quetiapine [Seroquel] 100 mg tablet 400 mg PO BEDTIME RF: 0 omeprazole 20 mg capsule,delayed release(DR/EC) 20 mg PO DAILY Qty: 30 RF: 2 venlafaxine [Effexor XR] 150 mg capsule,extended release 24hr See Rx Instructions PO DAILY RF: 0 cephalexin 500 mg tablet 500 mg PO QID 10 Days Qty: 40 RF: 0 Referrals: Wound [facility] [Outside] - 2 days (Please follow-up with wound clinic.) Interventions: ED Discharge Assessment Last Done: 07/09/20 00:19 Discharge Date/Time: 07/09/20 00:19
[2020-07-08] MEDS: Doxycycline Hyclate 100 MG in 0.9 % Sodium Chloride 250 ML 166.67 MG IV (21:38)
[2020-07-08 21:42] LABS: Mean Corpuscular HGB Conc 32.8 g/dl (31.0-35.0)
[2020-07-08 21:50] LABS: Hematocrit 45.7 % (37-47); Mean Corpuscular Hemoglobin 30.7 pg (27.0-33.0); Mean Corpuscular Volume 93.5 fL (80-98); Mean Platelet Volume 11.2 fL (9.4-12.3); Platelet Count 235 X10*3/uL (160-400); Red Blood Count 4.89 X10*6/uL (4.20-5.50); Red Cell Distribution Width 13.1 % (11.0-16.0); White Blood Count 18.4 X10*3/uL (4.8-10.8)
[2020-07-08 21:59] LABS: Lactic Acid 1.4 mmol/L (0.5-2.0)
[2020-07-08 22:01] LABS: Anion Gap 16 (12-20); Blood Urea Nitrogen 11 mg/dL (9-16); Calcium 9.4 mg/dL (8.4-10.2); Carbon Dioxide 23 mmol/L (22-29); Chloride 104 mmol/L (96-108); Creatinine Clr Calc Pharmacy 98.4; Estimated Glomerular Filt Rate > 60; Glucose Random 199 mg/dL (60-115); Potassium 3.9 mmol/L (3.3-5.1); Sodium 139 mmol/L (135-145)
[2020-07-08 22:06] VITALS: BP 137/69; PULSE 100; RESP 18; TEMP 36.1; O2SAT 97
[2020-07-08] MEDS: 0.9 % Sodium Chloride 1,000 ML 999 ML IVCONT (22:15)
[2020-07-08 22:16] LABS: Band Neutrophils Percent 2 % (3-5); Basophils Abs Manual 0.2 X10*3/uL (0.0-0.3); Basophils Percent Manual 1 % (0-1); Eosinophils Absolute Manual 0.2 X10*3/UL (0.0-0.8); Eosinophils Percent Manual 1 % (0-4); Lymphocytes Percent Manual 27 % (20-40); Monocytes Absolute Manual 0.9 X10*3/uL (0.0-1.2); Monocytes Percent Manual 5 % (2-11); Neutrophils Absolute Manual 12.1 X10*3/uL (2.2-7.9); Neutrophils Percent Manual 64 % (45-73); RBC Morphology NORMAL
[2020-07-08 22:17] LABS: Platelet Estimate NORMAL (NORMAL); Platelet Morphology Comment NORMAL; Toxic Vacuolation PRESENT
== END 2020-07-09 00:19 | disposition home or self-care (01) ==
PROVIDERS: Nurse Practitioner Family; Emergency Provider Student in an Organized Health Care Education/Training Program; PCP Internal Medicine
DX: L03.114 Cellulitis of left upper limb (principal); S51.802A Unspecified open wound of left forearm, initial encounter; X58.XXXA Exposure to other specified factors, initial encounter; M79.632 Pain in left forearm; E11.9 Type 2 diabetes mellitus without complications; I10 Essential (primary) hypertension; E78.00 Pure hypercholesterolemia, unspecified; F17.210 Nicotine dependence, cigarettes, uncomplicated; F12.90 Cannabis use, unspecified, uncomplicated; Z79.4 Long term (current) use of insulin; Y93.9 Activity, unspecified; Y92.9 Unspecified place or not applicable; Y99.9 Unspecified external cause status
CPT/HCPCS: 36415; 73090; 80048; 83605; 85007; 85027; 87040; 96361; 96365; 99283; 99284

== ENCOUNTER 2020-10-30 15:57 | Emergency (ER) | payer MEDICARE, MEDICAID, SELFPAY ==
--- NOTE | ~2020-10-30 | XR_ITS ---
EXAMINATION: XR KNEE, RIGHT CLINICAL INFORMATION: Status post knee injury. Now presents with pain right knee. COMPARISON: None TECHNIQUE: Four views of the right knee. FINDINGS: The tricompartment joint space is maintained normal. There is no visible loose bodies acute fracture or dislocation. The soft tissues are normal. No abnormal joint effusion seen. XR/XR knee RT 4V IMPRESSION: Unremarkable right knee exam.
[2020-10-30 16:05] VITALS: BP 160/90; PULSE 116; RESP 16; TEMP 36.8; O2SAT 98; BMI 34.9
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
[2020-10-30 19:44] VITALS: BP 130/80; PULSE 99; RESP 16; TEMP 36.9; O2SAT 93
[2020-10-30] MEDS: Ketorolac Tromethamine 15 MG/ML VIAL IM (20:04)
== END 2020-10-30 20:21 | disposition home or self-care (01) ==
PROVIDERS: Emergency Provider Emergency Medicine; PCP Internal Medicine
DX: M25.561 Pain in right knee (principal); F12.90 Cannabis use, unspecified, uncomplicated; F33.1 Major depressive disorder, recurrent, moderate; Z79.899 Other long term (current) drug therapy
CPT/HCPCS: 73564; 96372; 99284; J1885

== ENCOUNTER 2020-11-04 12:33 | Emergency (ER) | payer MEDICARE, MEDICAID, SELFPAY ==
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
--- NOTE | ~2020-11-04 | US_ITS ---
EXAMINATION: US VENOUS ULTRASOUND WITH DOPPLER LOWER EXTREMITY, RIGHT CLINICAL INFORMATION: Swelling and pain. Rule out DVT. COMPARISON: None TECHNIQUE: Ultrasound of the deep veins is performed from the hip to the calf with compression sonography and color and pulse Doppler assessment. Spectral analysis with color-flow imaging is performed. FINDINGS: There is normal venous compression and respiratory variation and augmented flow. The visualized common femoral vein, superficial femoral vein, profunda femoral vein, popliteal vein, and the trifurcation region shows no evidence of deep venous thrombosis. There is no significant popliteal fossa cyst. US/US venous duplex LE RT IMPRESSION: No DVT demonstrated in the right lower extremity.
[2020-11-04 13:23] VITALS: BP 143/94; PULSE 115; RESP 18; TEMP 36.9; O2SAT 98; BMI 29.0
[2020-11-04 14:00] VITALS: BP 149/87; PULSE 99; RESP 14; TEMP 36.8; O2SAT 96
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
[2020-11-04] MEDS: oxyCODONE HCl Immed Release 5 MG TABLET PO (14:38)
[2020-11-04 15:20] LABS: MANUAL DIFF FLAG NO
[2020-11-04 15:21] LABS: Basophils Absolute Auto 0.1 X10*3/uL (0.0-0.2); Basophils Percent Auto 0.4 % (0-2); Eosinophils Absolute Auto 0.2 X10*3/uL (0.0-0.4); Eosinophils Percent Auto 1.6 % (0-4); Hematocrit 41.1 % (37-47); Hemoglobin 13.9 g/dl (12.0-16.0); Imm Gran Abs Auto 0.08 X10*3/uL (0.00-0.03); Imm Gran Pct Auto 0.6 % (0.0-0.4); Lymphocytes Absolute Auto 3.6 X10*3/uL (1.2-4.9); Lymphocytes Percent Auto 25.4 % (20-40); Mean Corpuscular HGB Conc 33.8 g/dl (31.0-35.0); Mean Corpuscular Hemoglobin 30.3 pg (27.0-33.0); Mean Corpuscular Volume 89.5 fL (80-98); Mean Platelet Volume 11.1 fL (9.4-12.3); Monocytes Absolute Auto 0.9 X10*3/uL (0.1-1.2); Monocytes Percent Auto 6.2 % (2-11); Neutrophils Absolute Auto 9.2 X10*3/uL (2.0-8.3); Neutrophils Percent Auto 65.8 % (45-73); Platelet Count 222 X10*3/uL (160-400); Red Blood Count 4.59 X10*6/uL (4.20-5.50); Red Cell Distribution Width 12.6 % (11.0-16.0)
[2020-11-04 15:30] LABS: Prothrombin Time 11.1 SEC (9.9-13.0)
[2020-11-04 15:33] LABS: Partial Thromboplastin Time 33.9 SEC (24.1-38.0)
[2020-11-04 15:35] LABS: Anion Gap 12 (12-20); Blood Urea Nitrogen 5 mg/dL (9-16); Calcium 8.8 mg/dL (8.4-10.2); Carbon Dioxide 25 mmol/L (22-29); Chloride 99 mmol/L (96-108); Creatinine Clr Calc Pharmacy 106.2; Estimated Glomerular Filt Rate > 60; Glucose Random 336 mg/dL (60-115); Potassium 4.2 mmol/L (3.3-5.1); Sodium 132 mmol/L (135-145)
[2020-11-04] MEDS: diphenhydrAMINE HCL 25 MG TABLET PO (16:32)
[2020-11-04] MEDS: HYDROmorphone HCl 2 MG TABLET PO (17:18)
== END 2020-11-04 17:30 | disposition home or self-care (01) ==
PROVIDERS: Physician Assistant; Emergency Provider Emergency Medicine; PCP Internal Medicine
DX: S93.401A Sprain of unspecified ligament of right ankle, initial encounter (principal); L03.115 Cellulitis of right lower limb; F12.90 Cannabis use, unspecified, uncomplicated; R60.0 Localized edema; X58.XXXA Exposure to other specified factors, initial encounter; Y93.9 Activity, unspecified; Y92.9 Unspecified place or not applicable; Y99.9 Unspecified external cause status; Z79.899 Other long term (current) drug therapy
CPT/HCPCS: 36415; 73610; 80048; 85025; 85610; 85730; 93971; 99284; Q0163

== ENCOUNTER → 2020-11-07 08:33 | Outpatient (BNVA) | payer MEDICARE, MEDICAID, SELFPAY | PROVIDERS: Visit Provider Physician Assistant | DX: S80.01XA Contusion of right knee, initial encounter (principal); L03.90 Cellulitis, unspecified | CPT/HCPCS: 99202 ==

== ENCOUNTER 2020-11-10 13:53 | Outpatient (RCR) | payer MEDICARE, MEDICAID, SELFPAY | END 2020-11-21 14:45 | disposition home or self-care (01) | LOC: HO.WCC 13:53 | PROVIDERS: PCP Internal Medicine; Visit Provider Physician Assistant | DX: E11.628 Type 2 diabetes mellitus with other skin complications (principal); L02.415 Cutaneous abscess of right lower limb; S80.01XA Contusion of right knee, initial encounter; E11.65 Type 2 diabetes mellitus with hyperglycemia; F17.210 Nicotine dependence, cigarettes, uncomplicated | CPT/HCPCS: 87071; 87077; 87186; 87205; 97597; 99212 ==

== ENCOUNTER 2020-11-21 09:45 | Outpatient (REF) | payer MEDICARE, MEDICAID, SELFPAY ==
--- NOTE | ~2020-11-21 | XR_ITS ---
EXAMINATION: KNEE X-RAY CLINICAL INFORMATION: Pain COMPARISON: Previous x-ray 10/30/2020 TECHNIQUE: [place] view FINDINGS: No fracture or dislocation is seen. Patellofemoral alignment appears normal on the sunrise view. XR/XR knee RT 1V IMPRESSION: Normal sunrise view of the right knee.
== END 2020-11-21 09:46 | disposition home or self-care (01) ==
LOC: HO.HOSX 09:45
PROVIDERS: Visit Provider Physician Assistant
DX: S80.01XA Contusion of right knee, initial encounter (principal)
CPT/HCPCS: 73560; 99212

== ENCOUNTER 2020-12-05 15:31 | Emergency (ER) | payer MEDICARE, MEDICAID, SELFPAY ==
--- NOTE | ~2020-12-05 | CT_ITS ---
EXAMINATION: CT ABDOMEN AND PELVIS WITH CONTRAST CLINICAL INFORMATION: Chronic disease. Increased gas. Rule out bowel obstruction. COMPARISON: CT abdomen pelvis November 13, 2019 TECHNIQUE: Multidetector volumetric images were obtained from the superior aspect of the liver through the pubic symphysis following administration 85 mL of Omnipaque 350 intravenous contrast. Sagittal and coronal reformatted images were obtained on the technologist's workstation. This CT examination was performed using dose optimization techniques as appropriate, variously including the following: *Automated exposure control *Adjustment of mA and/or kV according to patient size (this includes techniques or standardized protocols for targeted exams where dose is matched to indication/reason for exam; i.e. extremities or head) *Use of iterative reconstruction technique DLP: 660 mGy-cm FINDINGS: Visualized lung bases are well aerated. The liver is mildly enlarged and demonstrates diffusely decreased attenuation. The gallbladder is normal in appearance. The pancreas, spleen and adrenal glands are unremarkable. Medial splenule again noted. Symmetrically enhancing kidneys. No hydronephrosis bilaterally. Loops of small and large bowel are normal in caliber. Mild colonic diverticulosis without CT evidence to suggest active diverticulitis. Normal appendix. Normal caliber abdominal aorta. No retroperitoneal lymphadenopathy. The bladder is normal in appearance. Unremarkable CT appearance of the uterus. 2.5 cm left adnexal cyst. There is a small amount of free pelvic fluid, nonspecific but possibly physiologic in a female of this age. Shotty bilateral inguinal lymph nodes again noted. Mild diffuse degenerative changes spine. CT/CT abdomen pelvis w con IMPRESSION: 1. No CT evidence for acute abnormality within the abdomen or pelvis. 2. Mild hepatomegaly with diffusely decreased attenuation suggesting hepatic steatosis. Correlation with liver enzymes recommended. 3. Mild colonic diverticulosis. 4. Small amount of free pelvic fluid, nonspecific but possibly physiologic in a female of this age.
--- NOTE | ~2020-12-05 | XR_ITS ---
EXAMINATION: XR CHEST CLINICAL INFORMATION: Shortness of breath and cough COMPARISON: Chest x-ray November 13, 2019 TECHNIQUE: 2 views of the chest were obtained. FINDINGS: Cardiac silhouette is normal in size. The lungs are adequately aerated. There is no lobar consolidation. No pleural effusion or pneumothorax. Mild degenerative changes of the spine. XR/XR chest 2V IMPRESSION: No acute pulmonary pathology.
[2020-12-05 16:49] VITALS: BP 122/79; PULSE 100; RESP 18; TEMP 36.8; O2SAT 95; BMI 32.8
[2020-12-05 19:44] LABS: Basophils Absolute Auto 0.1 X10*3/uL (0.0-0.2); Basophils Percent Auto 0.3 % (0-2); Eosinophils Absolute Auto 0.2 X10*3/uL (0.0-0.4); Eosinophils Percent Auto 1.2 % (0-4); Hematocrit 44.4 % (37-47); Hemoglobin 14.7 g/dl (12.0-16.0); Imm Gran Pct Auto 0.6 % (0.0-0.4); Lymphocytes Absolute Auto 4.2 X10*3/uL (1.2-4.9); MANUAL DIFF FLAG SCAN; Mean Corpuscular HGB Conc 33.1 g/dl (31.0-35.0); Mean Corpuscular Hemoglobin 29.9 pg (27.0-33.0); Mean Corpuscular Volume 90.2 fL (80-98); Monocytes Percent Auto 6.7 % (2-11); Neutrophils Absolute Auto 9.9 X10*3/uL (2.0-8.3); Neutrophils Percent Auto 64.2 % (45-73); Platelet Count 219 X10*3/uL (160-400); Red Blood Count 4.92 X10*6/uL (4.20-5.50); Red Cell Distribution Width 12.8 % (11.0-16.0); SCAN SMEAR FLAG 1; White Blood Count 15.4 X10*3/uL (4.8-10.8)
[2020-12-05 20:02] LABS: Alanine Aminotransferase 29 U/L (0-31); Albumin Level 4.2 g/dL (3.5-5.0); Alkaline Phosphatase 92 U/L (39-117); Anion Gap 15 (12-20); Aspartate Amino Transferase 28 U/L (5-31); Bilirubin Total 0.3 mg/dL (0.0-1.0); Blood Urea Nitrogen 8 mg/dL (9-16); Calcium 9.7 mg/dL (8.4-10.2); Carbon Dioxide 31 mmol/L (22-29); Chloride 91 mmol/L (96-108); Creatinine Clr Calc Pharmacy 68.9; Estimated Glomerular Filt Rate > 60; Glucose Random 545 mg/dL (60-115); Sodium 133 mmol/L (135-145); Total Protein 8.2 g/dL (6.5-8.0)
[2020-12-05 20:10] LABS: Alanine Aminotransferase 30 U/L (0-31); Albumin Level 4.1 g/dL (3.5-5.0); Alkaline Phosphatase 91 U/L (39-117); Aspartate Amino Transferase 28 U/L (5-31); Bilirubin Direct < 0.2 mg/dL (0.0-0.5); Bilirubin Total 0.3 mg/dL (0.0-1.0); Lipase 73 U/L (8-78); Total Protein 8.1 g/dL (6.5-8.0)
[2020-12-05 20:17] LABS: SLIDE REVIEW VERIFIED
--- NOTE | 2020-12-05 20:22 | ED.ABDPAIN ---
HPI - Abdominal Pain General Chief Complaint: Abdominal Pain <Campbell Lawler MD - Last Filed: 12/05/20 22:11> Stated Complaint: issue with stomach acids, multiple complaints <Campbell Lawler MD - Last Filed: 12/05/20 22:11> Time Seen by Provider: 12/05/20 20:12 <Campbell Lawler MD - Last Filed: 12/05/20 22:11> Source: patient <Campbell Lawler MD - Last Filed: 12/05/20 22:11> Mode of arrival: ambulatory <Campbell Lawler MD - Last Filed: 12/05/20 22:11> Limitations: no limitations <Campbell Lawler MD - Last Filed: 12/05/20 22:11> History of Present Illness HPI narrative: 40 yo female past medical history significant for asthma, Crohn's disease, uncontrolled DM and IBS presents to the emergency department with complaints of abdominal pain, nausea, vomiting, hard stools, SOB, and headache X 2 days. She states that her abdominal pain is generalized, but is worse in the epigastric region, she states it feels like acid reflux. She also complains of constant nausea for the past 2 days, with 2 episodes of vomiting last night. She states that she has also been experiencing hard stools, causing her to strain however, she states she is not constipated. She also mentions she has a frontal headache, bilateral in nature, free of vision changes. She states that this is the typical headache she feels when her sugars are uncontrolled. She reports that over the past 2 days she has also been experiencing intermittent shortness of breath, at times accompanied by a productive cough, green sputum. She states she has also been burping, and her burps smell like farts . She spoke with her PCP earlier today about the symptoms, who told her to come in to the local emergency department. She denies chest pain, weakness, fatigue, vision changes, changes in urination, recent sick contacts. She is vaccinated against COVID-19. She does not have a history of DKA. <Campbell Lawler MD - Last Filed: 12/05/20 22:11> MD elicited complaint: abdominal pain <Campbell Lawler MD - Last Filed: 12/05/20 22:11> Pertinent past history: none <Campbell Lawler MD - Last Filed: 12/05/20 22:11> Related Data Home Medications: Home Medications Medication Instructions Recorded Confirmed clonazepam 1 mg tablet 1 mg PO BID 12/31/19 06/01/20 clonidine HCl 0.1 mg tablet 0.1 mg PO BEDTIME 12/31/19 06/01/20 insulin glargine 100 unit/mL (3 24 unit SUBCUT QAM ml 12/31/19 06/01/20 mL) subcutaneous pen (Lantus Solostar U-100 Insulin) quetiapine 100 mg tablet (Seroquel) 400 mg PO BEDTIME tab 12/31/19 06/01/20 venlafaxine 150 mg See Rx Instructions PO DAILY 06/01/20 06/01/20 capsule,extended release 24 hr (Effexor XR) Previous Rx's Medication Instructions Recorded metformin 1,000 mg tablet 1,000 mg PO BID #60 tab 12/24/19 cyclobenzaprine 5 mg tablet 5 mg PO TID PRN #20 tab 01/05/20 albuterol sulfate 90 mcg/actuation 2 puff INHALATION Q4-6H PRN 30 05/26/20 aerosol inhaler Days #8.5 g empagliflozin 25 mg tablet 25 mg PO DAILY #30 tab 05/26/20 (Jardiance) pen needle, diabetic 31 gauge x #50 ea 05/26/20 5/16 (BD Ultra-Fine Short Pen Needle) silver sulfadiazine 1 % topical 1 appl TOPICAL DAILY #25 g 05/30/20 cream (Silvadene) sumatriptan succinate 50 mg tablet See Rx Instructions PO .COMPLEX 06/30/20 #10 tab meloxicam 7.5 mg tablet 7.5 mg PO DAILY 90 Days #90 tab 07/20/20 acetaminophen 500 mg tablet 500 mg PO Q6H PRN #20 tab 10/30/20 (Tylenol Extra Strength) naproxen 500 mg tablet 500 mg PO BID PRN 10 Days #20 tab 10/30/20 cephalexin 500 mg capsule 500 mg PO Q6H #28 cap 11/04/20 doxycycline monohydrate 100 mg 100 mg PO BID #14 cap 11/04/20 capsule hydromorphone 2 mg tablet 2 mg PO Q6H PRN #5 tab 11/04/20 (Dilaudid) gabapentin 100 mg capsule 100 mg PO BID 30 Days #60 cap 11/15/20 lidocaine 5 % topical ointment 1 appl TOPICAL BID PRN 30 Days #50 11/15/20 g hyoscyamine sulfate 0.125 mg tablet 0.125 mg PO QID #7 tab 12/05/20 omeprazole 20 mg capsule,delayed 20 mg PO DAILY #14 cap 12/05/20 release omeprazole 20 mg capsule,delayed 20 mg PO DAILY #90 cap 12/05/20 release <Campbell Lawler MD - Last Filed: 12/05/20 22:11> Allergies/Adverse Reactions: Allergies Allergy/AdvReac Type Severity Reaction Status Date / Time morphine [MORPHINE] Allergy Intermediate NAUSEA, Verified 12/05/20 16:49 rash oxycodone [From PERCOCET] Allergy Intermediate ITCHY, rash Verified 12/05/20 16:49 penicillin V Allergy Intermediate hives Verified 12/05/20 16:49 simvastatin Allergy Intermediate rash Verified 12/05/20 16:49 hydrocodone [From VICODIN] Allergy Mild RASH Verified 12/05/20 16:49 amoxicillin [Amoxicillin] Allergy Unknown UNKNOWN Verified 12/05/20 16:49 <Campbell Lawler MD - Last Filed: 12/05/20 22:11> Review of Systems Review of Systems Yes all other systems are reviewed and are negative <Campbell Lawler MD - Last Filed: 12/05/20 22:11> Physical Exam Vital Signs: Vital Signs: Last Vital Signs Temp 98.9 F 12/05/20 21:54 Pulse 96 12/05/20 21:54 Resp 16 12/05/20 22:10 BP 138/89 12/05/20 21:54 Pulse Ox 97 12/05/20 21:54 Body Mass Index 32.8 <Campbell Lawler MD - Last Filed: 12/05/20 22:11> Vital Signs: Last Vital Signs Temp 98.9 F 12/05/20 21:54 Pulse 96 12/05/20 21:54 Resp 16 12/05/20 22:10 BP 138/89 12/05/20 21:54 Pulse Ox 97 12/05/20 21:54 Body Mass Index 32.8 <Beth Brown MD - Last Filed: 12/05/20 23:53> Course Course Course Narrative: 1653 40 yo female pmhx significant for asthma, Crohn's disease, uncontrolled DM and IBS presents to the ED with complaints of generalized abdominal pain worse in epigastric region, nausea, vomiting X2 , hard stools, SOB at rest and on exertion, and frontal headache w/o vision changes or weakness X 2 days. Patient also reports that every time she burps, her burps smell like farts. Daily smoker, not med compliant. Upon physical examination abdomen is soft nontender nondistended, there is no pain to palpation. Lungs are clear to auscultation. S1 and S2 appreciated free of murmurs. Normal strength upper and lower extremities, normal [id number]. No focal neuro deficits noted. <Campbell Lawler MD - Last Filed: 12/05/20 22:11> Reevaluation(s) Reevaluation #1: Blood sugar was originally 545, 8 units of regular insulin were given. Blood sugar went down to 315, another 5 units of insulin were ordered at this time. She has received fluids, Tylenol and Zofran. However, patient still reports abdominal pain that is severe in nature. She will be given Dilaudid for the pain, and she will get an abdomen CT. <Campbell Lawler MD - Last Filed: 12/05/20 22:11> Blood sugar was originally 545, 8 units of regular insulin were given. Blood sugar went down to 315, another 5 units of insulin were ordered at this time. She has received fluids, Tylenol and Zofran. However, patient still reports abdominal pain that is severe in nature. She will be given Dilaudid for the pain, and she will get an abdomen CT. Patient's blood sugar below 300. Patient states that she has enough insulin at home, patient states that she is noncompliant with her medication and is not willing to be compliant. I discussed with the patient the effects of long-term hyperglycemia. Patient states she will follow-up with her primary care physician. Patient requesting a prescription for omeprazole. <Beth Brown MD - Last Filed: 12/05/20 23:53> Time: 21:30 <Campbell Lawler MD - Last Filed: 12/05/20 22:11> Reevaluation #2: Sign-out has been given to Dr. Brown. Who is aware of the plan. <Campbell Lawler MD - Last Filed: 12/05/20 22:11> Time: 22:11 <Campbell Lawler MD - Last Filed: 12/05/20 22:11> Time: 23:50 <Beth Brown MD - Last Filed: 12/05/20 23:53> Additional Reevaluation(s): Patient no longer having abdominal pain. I discussed the CT scan findings with the patient, nothing acute. Patient's blood sugar <Beth Brown MD - Last Filed: 12/05/20 23:53> MDM - Abdominal Pain Lab Data Result diagrams: : 12/05/20 19:34 12/05/20 19:34 <Campbell Lawler MD - Last Filed: 12/05/20 22:11> Labs: Lab Results 12/05/20 12/05/20 12/05/20 Range/Units 19:34 19:34 19:34 WBC 15.4 H (4.8-10.8) X10*3/uL RBC 4.92 (4.20-5.50) X10*6/uL Hgb 14.7 (12.0-16.0) g/dl Hct 44.4 (37-47) % MCV 90.2 (80-98) fL MCH 29.9 (27.0-33.0) pg MCHC 33.1 (31.0-35.0) g/dl RDW 12.8 (11.0-16.0) % Plt Count 219 (160-400) X10*3/uL MPV 12.0 (9.4-12.3) fL Immature Gran % (Auto) 0.6 H (0.0-0.4) % Neut % (Auto) 64.2 (45-73) % Lymph % (Auto) 27.0 (20-40) % Bowman % (Auto) 6.7 (2-11) % Eos % (Auto) 1.2 (0-4) % Baso % (Auto) 0.3 (0-2) % Lymph # (Auto) 4.2 (1.2-4.9) X10*3/uL Bowman # (Auto) 1.0 (0.1-1.2) X10*3/uL Eos # (Auto) 0.2 (0.0-0.4) X10*3/uL Baso # (Auto) 0.1 (0.0-0.2) X10*3/uL Abs Immat Gran (auto) 0.10 H (0.00-0.03) X10*3/uL Absolute Neuts (auto) 9.9 H (2.0-8.3) X10*3/uL Absolute Nucleated RBC 0.000 (0.0-0.012) X10*3/uL Nucleated RBC % (auto) 0.0 (0.0-0.2) /100WBC Smear Tech's Comments VERIFIED VBG pH (7.32-7.43) VBG pCO2 mmHg VBG pO2 mmHg VBG HCO3 (22-26) mmol/L VBG O2 Saturation % VBG Base Excess mmol/L Sodium 133 L (135-145) mmol/L Potassium 4.0 (3.3-5.1) mmol/L Chloride 91 L (96-108) mmol/L Carbon Dioxide 31 H (22-29) mmol/L Anion Gap 15 (12-20) BUN 8 L D (9-16) mg/dL Creatinine 1.00 (0.5-1.4) mg/dL Estim Creat Clear Calc 68.9 Estimated GFR > 60 POC Glucose (60-115) mg/dL Random Glucose 545 H* (60-115) mg/dL Calcium 9.7 D (8.4-10.2) mg/dL Total Bilirubin 0.3 0.3 (0.0-1.0) mg/dL Direct Bilirubin < 0.2 (0.0-0.5) mg/dL AST 28 28 (5-31) U/L ALT 29 30 (0-31) U/L Alkaline Phosphatase 92 91 (39-117) U/L Total Protein 8.2 H 8.1 H (6.5-8.0) g/dL Albumin 4.2 4.1 (3.5-5.0) g/dL Lipase 73 (8-78) U/L Urine Color Urine Appearance Urine pH (5.0-8.0) Ur Specific Chandler (1.005-1.025) Urine Protein (NEG-TRACE) MG/DL Urine Glucose (UA) (NEG) MG/DL Urine Ketones (NEG) MG/DL Urine Blood (NEG) Urine Nitrite (NEG) Ur Leukocyte Esterase (NEG) Urine RBC (0) /HPF Urine WBC (0-4) /HPF Ur Squamous Epith Cells /LPF Urine Bacteria /LPF Urine Yeast /HPF Urine Test (NEGATIVE) Acetone, Qual (Negative) COVID-19 (ALEX) (Negative) COVID-19 Clin Com 12/05/20 12/05/20 12/05/20 Range/Units 19:34 20:29 20:36 WBC (4.8-10.8) X10*3/uL RBC (4.20-5.50) X10*6/uL Hgb (12.0-16.0) g/dl Hct (37-47) % MCV (80-98) fL MCH (27.0-33.0) pg MCHC (31.0-35.0) g/dl RDW (11.0-16.0) % Plt Count (160-400) X10*3/uL MPV (9.4-12.3) fL Immature Gran % (Auto) (0.0-0.4) % Neut % (Auto) (45-73) % Lymph % (Auto) (20-40) % Bowman % (Auto) (2-11) % Eos % (Auto) (0-4) % Baso % (Auto) (0-2) % Lymph # (Auto) (1.2-4.9) X10*3/uL Bowman # (Auto) (0.1-1.2) X10*3/uL Eos # (Auto) (0.0-0.4) X10*3/uL Baso # (Auto) (0.0-0.2) X10*3/uL Abs Immat Gran (auto) (0.00-0.03) X10*3/uL Absolute Neuts (auto) (2.0-8.3) X10*3/uL Absolute Nucleated RBC (0.0-0.012) X10*3/uL Nucleated RBC % (auto) (0.0-0.2) /100WBC Smear Tech's Comments VBG pH 7.44 H (7.32-7.43) VBG pCO2 43 mmHg VBG pO2 51 mmHg VBG HCO3 30 H (22-26) mmol/L VBG O2 Saturation 81.0 % VBG Base Excess 5.3 mmol/L Sodium (135-145) mmol/L Potassium (3.3-5.1) mmol/L Chloride (96-108) mmol/L Carbon Dioxide (22-29) mmol/L Anion Gap (12-20) BUN (9-16) mg/dL Creatinine (0.5-1.4) mg/dL Estim Creat Clear Calc Estimated GFR POC Glucose 519 H* (60-115) mg/dL Random Glucose (60-115) mg/dL Calcium (8.4-10.2) mg/dL Total Bilirubin (0.0-1.0) mg/dL Direct Bilirubin (0.0-0.5) mg/dL AST (5-31) U/L ALT (0-31) U/L Alkaline Phosphatase (39-117) U/L Total Protein (6.5-8.0) g/dL Albumin (3.5-5.0) g/dL Lipase (8-78) U/L Urine Color Urine Appearance Urine pH (5.0-8.0) Ur Specific Chandler (1.005-1.025) Urine Protein (NEG-TRACE) MG/DL Urine Glucose (UA) (NEG) MG/DL Urine Ketones (NEG) MG/DL Urine Blood (NEG) Urine Nitrite (NEG) Ur Leukocyte Esterase (NEG) Urine RBC (0) /HPF Urine WBC (0-4) /HPF Ur Squamous Epith Cells /LPF Urine Bacteria /LPF Urine Yeast /HPF Urine Test (NEGATIVE) Acetone, Qual Negative (Negative) COVID-19 (ALEX) (Negative) COVID-19 Clin Com 12/05/20 12/05/20 12/05/20 Range/Units 21:47 21:47 21:47 WBC (4.8-10.8) X10*3/uL RBC (4.20-5.50) X10*6/uL Hgb (12.0-16.0) g/dl Hct (37-47) % MCV (80-98) fL MCH (27.0-33.0) pg MCHC (31.0-35.0) g/dl RDW (11.0-16.0) % Plt Count (160-400) X10*3/uL MPV (9.4-12.3) fL Immature Gran % (Auto) (0.0-0.4) % Neut % (Auto) (45-73) % Lymph % (Auto) (20-40) % Bowman % (Auto) (2-11) % Eos % (Auto) (0-4) % Baso % (Auto) (0-2) % Lymph # (Auto) (1.2-4.9) X10*3/uL Bowman # (Auto) (0.1-1.2) X10*3/uL Eos # (Auto) (0.0-0.4) X10*3/uL Baso # (Auto) (0.0-0.2) X10*3/uL Abs Immat Gran (auto) (0.00-0.03) X10*3/uL Absolute Neuts (auto) (2.0-8.3) X10*3/uL Absolute Nucleated RBC (0.0-0.012) X10*3/uL Nucleated RBC % (auto) (0.0-0.2) /100WBC Smear Tech's Comments VBG pH (7.32-7.43) VBG pCO2 mmHg VBG pO2 mmHg VBG HCO3 (22-26) mmol/L VBG O2 Saturation % VBG Base Excess mmol/L Sodium (135-145) mmol/L Potassium (3.3-5.1) mmol/L Chloride (96-108) mmol/L Carbon Dioxide (22-29) mmol/L Anion Gap (12-20) BUN (9-16) mg/dL Creatinine (0.5-1.4) mg/dL Estim Creat Clear Calc Estimated GFR POC Glucose (60-115) mg/dL Random Glucose (60-115) mg/dL Calcium (8.4-10.2) mg/dL Total Bilirubin (0.0-1.0) mg/dL Direct Bilirubin (0.0-0.5) mg/dL AST (5-31) U/L ALT (0-31) U/L Alkaline Phosphatase (39-117) U/L Total Protein (6.5-8.0) g/dL Albumin (3.5-5.0) g/dL Lipase (8-78) U/L Urine Color YELLOW Urine Appearance CLEAR Urine pH 8.0 (5.0-8.0) Ur Specific Chandler 1.010 (1.005-1.025) Urine Protein NEG (NEG-TRACE) MG/DL Urine Glucose (UA) >=1000 H (NEG) MG/DL Urine Ketones NEG (NEG) MG/DL Urine Blood NEG (NEG) Urine Nitrite NEG (NEG) Ur Leukocyte Esterase NEG (NEG) Urine RBC 0-2 (0) /HPF Urine WBC 1-4 (0-4) /HPF Ur Squamous Epith Cells TRACE /LPF Urine Bacteria 1+ /LPF Urine Yeast TRACE /HPF Urine Test NEGATIVE (NEGATIVE) Acetone, Qual (Negative) COVID-19 (ALEX) Negative (Negative) COVID-19 Clin Com See Note 12/05/20 Range/Units 21:53 WBC (4.8-10.8) X10*3/uL RBC (4.20-5.50) X10*6/uL Hgb (12.0-16.0) g/dl Hct (37-47) % MCV (80-98) fL MCH (27.0-33.0) pg MCHC (31.0-35.0) g/dl RDW (11.0-16.0) % Plt Count (160-400) X10*3/uL MPV (9.4-12.3) fL Immature Gran % (Auto) (0.0-0.4) % Neut % (Auto) (45-73) % Lymph % (Auto) (20-40) % Bowman % (Auto) (2-11) % Eos % (Auto) (0-4) % Baso % (Auto) (0-2) % Lymph # (Auto) (1.2-4.9) X10*3/uL Bowman # (Auto) (0.1-1.2) X10*3/uL Eos # (Auto) (0.0-0.4) X10*3/uL Baso # (Auto) (0.0-0.2) X10*3/uL Abs Immat Gran (auto) (0.00-0.03) X10*3/uL Absolute Neuts (auto) (2.0-8.3) X10*3/uL Absolute Nucleated RBC (0.0-0.012) X10*3/uL Nucleated RBC % (auto) (0.0-0.2) /100WBC Smear Tech's Comments VBG pH (7.32-7.43) VBG pCO2 mmHg VBG pO2 mmHg VBG HCO3 (22-26) mmol/L VBG O2 Saturation % VBG Base Excess mmol/L Sodium (135-145) mmol/L Potassium (3.3-5.1) mmol/L Chloride (96-108) mmol/L Carbon Dioxide (22-29) mmol/L Anion Gap (12-20) BUN (9-16) mg/dL Creatinine (0.5-1.4) mg/dL Estim Creat Clear Calc Estimated GFR POC Glucose 315 H (60-115) mg/dL Random Glucose (60-115) mg/dL Calcium (8.4-10.2) mg/dL Total Bilirubin (0.0-1.0) mg/dL Direct Bilirubin (0.0-0.5) mg/dL AST (5-31) U/L ALT (0-31) U/L Alkaline Phosphatase (39-117) U/L Total Protein (6.5-8.0) g/dL Albumin (3.5-5.0) g/dL Lipase (8-78) U/L Urine Color Urine Appearance Urine pH (5.0-8.0) Ur Specific Chandler (1.005-1.025) Urine Protein (NEG-TRACE) MG/DL Urine Glucose (UA) (NEG) MG/DL Urine Ketones (NEG) MG/DL Urine Blood (NEG) Urine Nitrite (NEG) Ur Leukocyte Esterase (NEG) Urine RBC (0) /HPF Urine WBC (0-4) /HPF Ur Squamous Epith Cells /LPF Urine Bacteria /LPF Urine Yeast /HPF Urine Test (NEGATIVE) Acetone, Qual (Negative) COVID-19 (ALEX) (Negative) COVID-19 Clin Com <Campbell Lawler MD - Last Filed: 12/05/20 22:11> Lab Results 12/05/20 12/05/20 12/05/20 Range/Units 19:34 19:34 19:34 WBC 15.4 H (4.8-10.8) X10*3/uL RBC 4.92 (4.20-5.50) X10*6/uL Hgb 14.7 (12.0-16.0) g/dl Hct 44.4 (37-47) % MCV 90.2 (80-98) fL MCH 29.9 (27.0-33.0) pg MCHC 33.1 (31.0-35.0) g/dl RDW 12.8 (11.0-16.0) % Plt Count 219 (160-400) X10*3/uL MPV 12.0 (9.4-12.3) fL Immature Gran % (Auto) 0.6 H (0.0-0.4) % Neut % (Auto) 64.2 (45-73) % Lymph % (Auto) 27.0 (20-40) % Bowman % (Auto) 6.7 (2-11) % Eos % (Auto) 1.2 (0-4) % Baso % (Auto) 0.3 (0-2) % Lymph # (Auto) 4.2 (1.2-4.9) X10*3/uL Bowman # (Auto) 1.0 (0.1-1.2) X10*3/uL Eos # (Auto) 0.2 (0.0-0.4) X10*3/uL Baso # (Auto) 0.1 (0.0-0.2) X10*3/uL Abs Immat Gran (auto) 0.10 H (0.00-0.03) X10*3/uL Absolute Neuts (auto) 9.9 H (2.0-8.3) X10*3/uL Absolute Nucleated RBC 0.000 (0.0-0.012) X10*3/uL Nucleated RBC % (auto) 0.0 (0.0-0.2) /100WBC Smear Tech's Comments VERIFIED VBG pH (7.32-7.43) VBG pCO2 mmHg VBG pO2 mmHg VBG HCO3 (22-26) mmol/L VBG O2 Saturation % VBG Base Excess mmol/L Sodium 133 L (135-145) mmol/L Potassium 4.0 (3.3-5.1) mmol/L Chloride 91 L (96-108) mmol/L Carbon Dioxide 31 H (22-29) mmol/L Anion Gap 15 (12-20) BUN 8 L D (9-16) mg/dL Creatinine 1.00 (0.5-1.4) mg/dL Estim Creat Clear Calc 68.9 Estimated GFR > 60 POC Glucose (60-115) mg/dL Random Glucose 545 H* (60-115) mg/dL Calcium 9.7 D (8.4-10.2) mg/dL Total Bilirubin 0.3 0.3 (0.0-1.0) mg/dL Direct Bilirubin < 0.2 (0.0-0.5) mg/dL AST 28 28 (5-31) U/L ALT 29 30 (0-31) U/L Alkaline Phosphatase 92 91 (39-117) U/L Total Protein 8.2 H 8.1 H (6.5-8.0) g/dL Albumin 4.2 4.1 (3.5-5.0) g/dL Lipase 73 (8-78) U/L Urine Color Urine Appearance Urine pH (5.0-8.0) Ur Specific Chandler (1.005-1.025) Urine Protein (NEG-TRACE) MG/DL Urine Glucose (UA) (NEG) MG/DL Urine Ketones (NEG) MG/DL Urine Blood (NEG) Urine Nitrite (NEG) Ur Leukocyte Esterase (NEG) Urine RBC (0) /HPF Urine WBC (0-4) /HPF Ur Squamous Epith Cells /LPF Urine Bacteria /LPF Urine Yeast /HPF Urine Test (NEGATIVE) Acetone, Qual (Negative) COVID-19 (ALEX) (Negative) COVID-19 Clin Com 12/05/20 12/05/20 12/05/20 Range/Units 19:34 20:29 20:36 WBC (4.8-10.8) X10*3/uL RBC (4.20-5.50) X10*6/uL Hgb (12.0-16.0) g/dl Hct (37-47) % MCV (80-98) fL MCH (27.0-33.0) pg MCHC (31.0-35.0) g/dl RDW (11.0-16.0) % Plt Count (160-400) X10*3/uL MPV (9.4-12.3) fL Immature Gran % (Auto) (0.0-0.4) % Neut % (Auto) (45-73) % Lymph % (Auto) (20-40) % Bowman % (Auto) (2-11) % Eos % (Auto) (0-4) % Baso % (Auto) (0-2) % Lymph # (Auto) (1.2-4.9) X10*3/uL Bowman # (Auto) (0.1-1.2) X10*3/uL Eos # (Auto) (0.0-0.4) X10*3/uL Baso # (Auto) (0.0-0.2) X10*3/uL Abs Immat Gran (auto) (0.00-0.03) X10*3/uL Absolute Neuts (auto) (2.0-8.3) X10*3/uL Absolute Nucleated RBC (0.0-0.012) X10*3/uL Nucleated RBC % (auto) (0.0-0.2) /100WBC Smear Tech's Comments VBG pH 7.44 H (7.32-7.43) VBG pCO2 43 mmHg VBG pO2 51 mmHg VBG HCO3 30 H (22-26) mmol/L VBG O2 Saturation 81.0 % VBG Base Excess 5.3 mmol/L Sodium (135-145) mmol/L Potassium (3.3-5.1) mmol/L Chloride (96-108) mmol/L Carbon Dioxide (22-29) mmol/L Anion Gap (12-20) BUN (9-16) mg/dL Creatinine (0.5-1.4) mg/dL Estim Creat Clear Calc Estimated GFR POC Glucose 519 H* (60-115) mg/dL Random Glucose (60-115) mg/dL Calcium (8.4-10.2) mg/dL Total Bilirubin (0.0-1.0) mg/dL Direct Bilirubin (0.0-0.5) mg/dL AST (5-31) U/L ALT (0-31) U/L Alkaline Phosphatase (39-117) U/L Total Protein (6.5-8.0) g/dL Albumin (3.5-5.0) g/dL Lipase (8-78) U/L Urine Color Urine Appearance Urine pH (5.0-8.0) Ur Specific Chandler (1.005-1.025) Urine Protein (NEG-TRACE) MG/DL Urine Glucose (UA) (NEG) MG/DL Urine Ketones (NEG) MG/DL Urine Blood (NEG) Urine Nitrite (NEG) Ur Leukocyte Esterase (NEG) Urine RBC (0) /HPF Urine WBC (0-4) /HPF Ur Squamous Epith Cells /LPF Urine Bacteria /LPF Urine Yeast /HPF Urine Test (NEGATIVE) Acetone, Qual Negative (Negative) COVID-19 (ALEX) (Negative) COVID-19 Clin Com 12/05/20 12/05/20 12/05/20 Range/Units 21:47 21:47 21:47 WBC (4.8-10.8) X10*3/uL RBC (4.20-5.50) X10*6/uL Hgb (12.0-16.0) g/dl Hct (37-47) % MCV (80-98) fL MCH (27.0-33.0) pg MCHC (31.0-35.0) g/dl RDW (11.0-16.0) % Plt Count (160-400) X10*3/uL MPV (9.4-12.3) fL Immature Gran % (Auto) (0.0-0.4) % Neut % (Auto) (45-73) % Lymph % (Auto) (20-40) % Bowman % (Auto) (2-11) % Eos % (Auto) (0-4) % Baso % (Auto) (0-2) % Lymph # (Auto) (1.2-4.9) X10*3/uL Bowman # (Auto) (0.1-1.2) X10*3/uL Eos # (Auto) (0.0-0.4) X10*3/uL Baso # (Auto) (0.0-0.2) X10*3/uL Abs Immat Gran (auto) (0.00-0.03) X10*3/uL Absolute Neuts (auto) (2.0-8.3) X10*3/uL Absolute Nucleated RBC (0.0-0.012) X10*3/uL Nucleated RBC % (auto) (0.0-0.2) /100WBC Smear Tech's Comments VBG pH (7.32-7.43) VBG pCO2 mmHg VBG pO2 mmHg VBG HCO3 (22-26) mmol/L VBG O2 Saturation % VBG Base Excess mmol/L Sodium (135-145) mmol/L Potassium (3.3-5.1) mmol/L Chloride (96-108) mmol/L Carbon Dioxide (22-29) mmol/L Anion Gap (12-20) BUN (9-16) mg/dL Creatinine (0.5-1.4) mg/dL Estim Creat Clear Calc Estimated GFR POC Glucose (60-115) mg/dL Random Glucose (60-115) mg/dL Calcium (8.4-10.2) mg/dL Total Bilirubin (0.0-1.0) mg/dL Direct Bilirubin (0.0-0.5) mg/dL AST (5-31) U/L ALT (0-31) U/L Alkaline Phosphatase (39-117) U/L Total Protein (6.5-8.0) g/dL Albumin (3.5-5.0) g/dL Lipase (8-78) U/L Urine Color YELLOW Urine Appearance CLEAR Urine pH 8.0 (5.0-8.0) Ur Specific Chandler 1.010 (1.005-1.025) Urine Protein NEG (NEG-TRACE) MG/DL Urine Glucose (UA) >=1000 H (NEG) MG/DL Urine Ketones NEG (NEG) MG/DL Urine Blood NEG (NEG) Urine Nitrite NEG (NEG) Ur Leukocyte Esterase NEG (NEG) Urine RBC 0-2 (0) /HPF Urine WBC 1-4 (0-4) /HPF Ur Squamous Epith Cells TRACE /LPF Urine Bacteria 1+ /LPF Urine Yeast TRACE /HPF Urine Test NEGATIVE (NEGATIVE) Acetone, Qual (Negative) COVID-19 (ALEX) Negative (Negative) COVID-19 Clin Com See Note 12/05/20 Range/Units 21:53 WBC (4.8-10.8) X10*3/uL RBC (4.20-5.50) X10*6/uL Hgb (12.0-16.0) g/dl Hct (37-47) % MCV (80-98) fL MCH (27.0-33.0) pg MCHC (31.0-35.0) g/dl RDW (11.0-16.0) % Plt Count (160-400) X10*3/uL MPV (9.4-12.3) fL Immature Gran % (Auto) (0.0-0.4) % Neut % (Auto) (45-73) % Lymph % (Auto) (20-40) % Bowman % (Auto) (2-11) % Eos % (Auto) (0-4) % Baso % (Auto) (0-2) % Lymph # (Auto) (1.2-4.9) X10*3/uL Bowman # (Auto) (0.1-1.2) X10*3/uL Eos # (Auto) (0.0-0.4) X10*3/uL Baso # (Auto) (0.0-0.2) X10*3/uL Abs Immat Gran (auto) (0.00-0.03) X10*3/uL Absolute Neuts (auto) (2.0-8.3) X10*3/uL Absolute Nucleated RBC (0.0-0.012) X10*3/uL Nucleated RBC % (auto) (0.0-0.2) /100WBC Smear Tech's Comments VBG pH (7.32-7.43) VBG pCO2 mmHg VBG pO2 mmHg VBG HCO3 (22-26) mmol/L VBG O2 Saturation % VBG Base Excess mmol/L Sodium (135-145) mmol/L Potassium (3.3-5.1) mmol/L Chloride (96-108) mmol/L Carbon Dioxide (22-29) mmol/L Anion Gap (12-20) BUN (9-16) mg/dL Creatinine (0.5-1.4) mg/dL Estim Creat Clear Calc Estimated GFR POC Glucose 315 H (60-115) mg/dL Random Glucose (60-115) mg/dL Calcium (8.4-10.2) mg/dL Total Bilirubin (0.0-1.0) mg/dL Direct Bilirubin (0.0-0.5) mg/dL AST (5-31) U/L ALT (0-31) U/L Alkaline Phosphatase (39-117) U/L Total Protein (6.5-8.0) g/dL Albumin (3.5-5.0) g/dL Lipase (8-78) U/L Urine Color Urine Appearance Urine pH (5.0-8.0) Ur Specific Chandler (1.005-1.025) Urine Protein (NEG-TRACE) MG/DL Urine Glucose (UA) (NEG) MG/DL Urine Ketones (NEG) MG/DL Urine Blood (NEG) Urine Nitrite (NEG) Ur Leukocyte Esterase (NEG) Urine RBC (0) /HPF Urine WBC (0-4) /HPF Ur Squamous Epith Cells /LPF Urine Bacteria /LPF Urine Yeast /HPF Urine Test (NEGATIVE) Acetone, Qual (Negative) COVID-19 (ALEX) (Negative) COVID-19 Clin Com <Beth Brown MD - Last Filed: 12/05/20 23:53> Imaging Data CT scan - abdomen: Radiologist's impression: FINDINGS: Visualized lung bases are well aerated. The liver is mildly enlarged and demonstrates diffusely decreased attenuation. The gallbladder is normal in appearance. The pancreas, spleen and adrenal glands are unremarkable. Medial splenule again noted. Symmetrically enhancing kidneys. No hydronephrosis bilaterally. Loops of small and large bowel are normal in caliber. Mild colonic diverticulosis without CT evidence to suggest active diverticulitis. Normal appendix. Normal caliber abdominal aorta. No retroperitoneal lymphadenopathy. The bladder is normal in appearance. Unremarkable CT appearance of the uterus. 2.5 cm left adnexal cyst. There is a small amount of free pelvic fluid, nonspecific but possibly physiologic in a female of this age. Shotty bilateral inguinal lymph nodes again noted. Mild diffuse degenerative changes spine. CT/CT abdomen pelvis w con IMPRESSION: 1.? No CT evidence for acute abnormality within the abdomen or pelvis. 2.? Mild hepatomegaly with diffusely decreased attenuation suggesting hepatic steatosis. Correlation with liver enzymes recommended. 3.? Mild colonic diverticulosis. 4.? Small amount of free pelvic fluid, nonspecific but possibly physiologic in a female of this age.? <Beth Brown MD - Last Filed: 12/05/20 23:53> Discharge Plan Discharge Clinical Impression: Abdominal pain, Acute hyperglycemia <Campbell Lawler MD - Last Filed: 12/05/20 22:11> Patient Disposition: Home, Self-Care <Campbell Lawler MD - Last Filed: 12/05/20 22:11> Instructions: Abdominal Pain (ED), Diabetic Hyperglycemia (ED), Diabetes and Exercise (ED) <Campbell Lawler MD - Last Filed: 12/05/20 22:11> Additional Instructions: Please follow-up with your primary care physician tomorrow. If you have any worsening or new symptoms, please return to the emergency room or call 911 <Campbell Lawler MD - Last Filed: 12/05/20 22:11> Prescriptions: New omeprazole 20 mg capsule,delayed release(DR/EC) 20 mg PO DAILY Qty: 14 RF: 0 hyoscyamine sulfate 0.125 mg tablet 0.125 mg PO QID Qty: 7 RF: 0 No Action metformin 1,000 mg tablet 1,000 mg PO BID Qty: 60 RF: 0 cyclobenzaprine 5 mg tablet 5 mg PO TID PRN (Reason: muscle spasm) Qty: 20 RF: 0 albuterol sulfate 90 mcg/actuation HFA aerosol inhaler 2 puff inhalation Q4-6H PRN (Reason: for muscle spasm) 30 Days Qty: 8.5 RF: 5 Jardiance 25 mg tablet 25 mg PO DAILY Qty: 30 RF: 3 (DME) pen needle, diabetic [BD Ultra-Fine Short Pen Needle] 31 gauge x 5/16 needle See Rx Instructions .ROUTE .MEDSUPPLY Qty: 50 RF: 5 silver sulfadiazine [Silvadene] 1 % cream 1 appl topical DAILY Qty: 25 RF: 0 sumatriptan succinate 50 mg tablet See Rx Instructions PO .COMPLEX Qty: 10 RF: 1 meloxicam 7.5 mg tablet 7.5 mg PO DAILY 90 Days Qty: 90 RF: 0 omeprazole 20 mg capsule,delayed release(DR/EC) 20 mg PO DAILY Qty: 90 RF: 2 doxycycline monohydrate 100 mg capsule 100 mg PO BID Qty: 14 RF: 0 cephalexin 500 mg capsule 500 mg PO Q6H Qty: 28 RF: 0 hydromorphone [Dilaudid] 2 mg tablet 2 mg PO Q6H PRN (Reason: severe pain (scale score 7-10)) Qty: 5 RF: 0 acetaminophen [Tylenol Extra Strength] 500 mg tablet 500 mg PO Q6H PRN (Reason: pain or fever) Qty: 20 RF: 0 naproxen 500 mg tablet 500 mg PO BID PRN (Reason: pain) 10 Days Qty: 20 RF: 0 clonazepam 1 mg tablet 1 mg PO BID RF: 0 clonidine HCl 0.1 mg tablet 0.1 mg PO BEDTIME RF: 0 Lantus Solostar U-100 Insulin 100 unit/mL (3 mL) insulin pen 24 unit subcut QAM RF: 0 quetiapine [Seroquel] 100 mg tablet 400 mg PO BEDTIME RF: 0 venlafaxine [Effexor XR] 150 mg capsule,extended release 24hr See Rx Instructions PO DAILY RF: 0 lidocaine 5 % ointment 1 appl topical BID PRN (Reason: pain) 30 Days Qty: 50 RF: 0 gabapentin 100 mg capsule 100 mg PO BID 30 Days Qty: 60 RF: 0 <Campbell Lawler MD - Last Filed: 12/05/20 22:11> [facility] Past Medical History Medical History: Medical History (Updated 12/05/20 @ 23:52 by Beth Brown MD) Anxiety and depression Asthma Crohn's disease GERD (gastroesophageal reflux disease) Hypercholesterolemia Hypertension IBS (irritable bowel syndrome) Migraine Obesity (BMI 30-39.9) OCD (obsessive compulsive disorder) Panic disorder PTSD (post-traumatic stress disorder) Seizure disorder Tobacco abuse Type 2 diabetes mellitus with hyperglycemia, with long-term current use of insulin <Campbell Lawler MD - Last Filed: 12/05/20 22:11> Surgical History: Surgical History H/O arthroscopy H/O bilateral breast reduction surgery History of ankle surgery Previous section <Campbell Lawler MD - Last Filed: 12/05/20 22:11> Family History Family History: Family History Father CVD (cerebrovascular disease) Diabetes Hypertension Mother Depression Chronic mental illness Maternal Grandmother Myocardial infarction CVD (cerebrovascular disease) Breast cancer Maternal Aunt Liver cancer <Campbell Lawler MD - Last Filed: 12/05/20 22:11> Social History Social History: Social History Housing: Apartment Alcohol intake: never Patient Tobacco Use Status: Current everyday Tobacco user Tobacco use type: Cigarette Cigarettes Per Day: 6 Substance Use Type: Marijuana Advance Directives: No Advance Directives Information Provided: No Patient : No Current occupational status: disabled Current occupation: left handed <Campbell Lawler MD - Last Filed: 12/05/20 22:11>
[2020-12-05 20:27] LABS: Acetone, serum QL Negative (Negative)
[2020-12-05 20:31] VITALS: BP 115/83; PULSE 99; RESP 16; TEMP 36.8; O2SAT 99
[2020-12-05] MEDS: 0.9 % Sodium Chloride 1,000 ML 999 ML IV (20:33)
[2020-12-05 20:37] LABS: Glucose, Whole Blood 519 mg/dL (60-115)
[2020-12-05 20:41] LABS: Venous Blood Gas Refer to POC result
[2020-12-05 20:42] LABS: VBG Base Excess 5.3 mmol/L; VBG HCO3 30 mmol/L (22-26); VBG pCO2 43 mmHg; VBG pH 7.44 (7.32-7.43); VBG pO2 51 mmHg
[2020-12-05] MEDS: Insulin Regular, Human 100 UNIT/ML 3 ML VIAL 8 UNIT IVPUSH (21:05)
[2020-12-05] MEDS: Acetaminophen 325 MG TABLET 650 MG PO (21:43)
[2020-12-05] MEDS: Ondansetron ODT 4 MG TAB.RAPDIS TRANSLINGU (21:43)
--- NOTE | 2020-12-05 21:43 | PC.NURSE ---
pt medicated for nausea and pain.
[2020-12-05 21:54] VITALS: BP 138/89; PULSE 96; RESP 16; TEMP 37.2; O2SAT 97
[2020-12-05 21:58] LABS: Appearance Urine CLEAR; Color Urine YELLOW; Glucose Urine UA >=1000 MG/DL (NEG); Leukocyte Esterase Urine NEG (NEG); Nitrite Urine NEG (NEG); Urine Blood NEG (NEG); Urine Ketones NEG (NEG); Urine Protein NEG (NEG-TRACE)
[2020-12-05 22:00] LABS: Glucose, Whole Blood 315 mg/dL (60-115)
[2020-12-05 22:01] LABS: UPreg QC Valid YES; Urine Pregnancy NEGATIVE (NEGATIVE)
[2020-12-05 22:08] LABS: COVID-19 Test Negative (Negative); RBC Urine 0-2 /HPF (0); Squamous Epithelial Cell Urine TRACE /LPF
[2020-12-05 22:09] LABS: Bacteria Urine 1+ /LPF
[2020-12-05 22:10] VITALS: RESP 16
[2020-12-05] MEDS: HYDROmorphone HCl 1 MG/ML SYRINGE IVPUSH (22:10)
[2020-12-05] MEDS: Insulin Regular, Human 100 UNIT/ML 3 ML VIAL IVPUSH (22:11)
--- NOTE | 2020-12-05 22:25 | PC.NURSE ---
PT TO CT IN STRETCHER. PT MEDICATED FOR PAIN.
[2020-12-05] MEDS: iohexoL 350 MG/ML 100 ML INFUS..BTL IV (22:47)
[2020-12-05 23:50] LABS: Glucose, Whole Blood 207 mg/dL (60-115)
== END 2020-12-06 00:07 | disposition home or self-care (01) ==
PROVIDERS: Emergency Medicine Emergency Medical Services; Emergency Provider Emergency Medicine; PCP Internal Medicine
DX: R10.9 Unspecified abdominal pain (principal); E11.65 Type 2 diabetes mellitus with hyperglycemia; K50.90 Crohn's disease, unspecified, without complications; J45.909 Unspecified asthma, uncomplicated; F17.200 Nicotine dependence, unspecified, uncomplicated; Z91.14 Patient's other noncompliance with medication regimen; Z20.822 Contact with and (suspected) exposure to COVID-19
CPT/HCPCS: 36415; 71046; 74177; 80053; 80076; 81001; 81025; 82009; 82248; 82803; 82947; 83690; 85025; 87635; 96361; 96374; 96375; 96376; 99284; J1170; Q9967

== ENCOUNTER 2021-03-05 18:37 | Emergency (ER) | payer MEDICARE, MEDICAID, SELFPAY ==
--- NOTE | ~2021-03-05 | CT_ITS ---
EXAMINATION: CT ABDOMEN AND PELVIS WITH CONTRAST CLINICAL INFORMATION: Diarrhea. Abdominal pain. History of Crohn's. COMPARISON: 12/05/2020 TECHNIQUE: Multidetector volumetric images were obtained from the superior aspect of the liver through the pubic symphysis following administration 85 mL of Omnipaque 350 intravenous contrast. Sagittal and coronal reformatted images were obtained on the technologist's workstation. Oral contrast: No This CT examination was performed using dose optimization techniques as appropriate, variously including the following: *Automated exposure control *Adjustment of mA and/or kV according to patient size (this includes techniques or standardized protocols for targeted exams where dose is matched to indication/reason for exam; i.e. extremities or head) *Use of iterative reconstruction technique DLP: 671 mGy-cm FINDINGS: LUNG BASES: The visualized lung bases are unremarkable. LIVER, GALLBLADDER, AND BILIARY TREE: The liver is enlarged measuring 24.5 cm in CC dimension. Normal in shape of the liver with decreased attenuation. No focal hepatic lesion or biliary ductal dilatation is present. The gallbladder is unremarkable with no evidence of radiopaque gallstones, gallbladder wall thickening, or obvious pericholecystic inflammatory changes. PANCREAS: Unremarkable. SPLEEN: Unremarkable. ADRENAL GLANDS: Unremarkable. KIDNEYS AND URETERS: The kidneys are normal in size, shape, and attenuation. No hydronephrosis, hydroureter, or calculi seen. No perinephric stranding. BLADDER: Unremarkable. GASTROINTESTINAL TRACT: The stomach is unremarkable. Normal caliber of the small bowel. No obstruction. No small bowel wall thickening. No colonic wall thickening or acute inflammation. Normal appendix. ABDOMINAL WALL: No significant hernia is appreciated. LYMPH NODES: Normal. VASCULAR: Unremarkable. PELVIC VISCERA: The uterus and adnexa are unremarkable. OSSEOUS STRUCTURES: No acute or suspicious osseous abnormality. Degenerative changes noted in the spine. Mild degenerative changes of the hips. CT/CT abdomen pelvis w con IMPRESSION: No acute findings of the abdomen or pelvis. No bowel wall thickening/inflammation. Hepatomegaly with hepatic steatosis. Fleischner guidelines were followed.
--- NOTE | ~2021-03-05 | XR_ITS ---
EXAMINATION: XR CHEST CLINICAL INFORMATION: Cough COMPARISON: Chest radiograph 12/05/2020 TECHNIQUE: Frontal view of the chest was obtained. FINDINGS: No significant abnormality is noted involving the heart, lungs, mediastinum, bony thorax or soft tissues. XR/XR chest 1V IMPRESSION: Unremarkable examination.
[2021-03-05 18:54] VITALS: BP 149/69; PULSE 84; RESP 14; TEMP 36.8; O2SAT 95
--- NOTE | 2021-03-05 18:58 | ED_ITS ---
HPI - Nausea/Vomiting/Diarrhea General Chief complaint: Nausea/Vomiting/Diarrhea Stated complaint: Sick person Time Seen by Provider: 03/05/21 18:45 Source: patient and old records reviewed Mode of arrival: EMS Limitations: other (very poor historian ) History of Present Illness HPI Narrative: I am tired. My kids were around 4 kids with COVID my rapid test was negative on Friday. 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 MD elicited complaint: nausea, vomiting, diarrhea, abdominal pain and other (headaches, body aches) Pertinent past history: other (hx of IBS, noncompliance with DM medications, pseudoseizures) Onset (ago): day(s) (4) Description of vomiting: food contents Associated nausea: Yes Associated abdominal pain: Yes Location of pain: diffuse Pain consistency: constant Severity: moderate Quality: cramping Exacerbating factors: eating Relieving factors: none Context: sick contacts Associated symptoms: myalgias, fever/chills, headaches, loss of appetite, malaise, nausea/vomiting, fatigue and other (back pain, cough) Related Data Home Medications Medication Instructions Recorded Confirmed clonazepam 1 mg tablet 1 mg PO BID 12/31/19 06/01/20 clonidine HCl 0.1 mg tablet 0.1 mg PO BEDTIME 12/31/19 06/01/20 insulin glargine 100 unit/mL (3 24 unit SUBCUT QAM ml 12/31/19 06/01/20 mL) subcutaneous pen (Lantus Solostar U-100 Insulin) quetiapine 100 mg tablet (Seroquel) 400 mg PO BEDTIME tab 12/31/19 06/01/20 venlafaxine 150 mg See Rx Instructions PO DAILY 06/01/20 06/01/20 capsule,extended release 24 hr (Effexor XR) Previous Rx's Medication Instructions Recorded metformin 1,000 mg tablet 1,000 mg PO BID #60 tab 12/24/19 cyclobenzaprine 5 mg tablet 5 mg PO TID PRN #20 tab 01/05/20 albuterol sulfate 90 mcg/actuation 2 puff INHALATION Q4-6H PRN 30 05/26/20 aerosol inhaler Days #8.5 g empagliflozin 25 mg tablet 25 mg PO DAILY #30 tab 05/26/20 (Jardiance) pen needle, diabetic 31 gauge x #50 ea 05/26/20 5/16 (BD Ultra-Fine Short Pen Needle) silver sulfadiazine 1 % topical 1 appl TOPICAL DAILY #25 g 05/30/20 cream (Silvadene) sumatriptan succinate 50 mg tablet See Rx Instructions PO .COMPLEX 06/30/20 #10 tab meloxicam 7.5 mg tablet 7.5 mg PO DAILY 90 Days #90 tab 07/20/20 acetaminophen 500 mg tablet 500 mg PO Q6H PRN #20 tab 10/30/20 (Tylenol Extra Strength) naproxen 500 mg tablet 500 mg PO BID PRN 10 Days #20 tab 10/30/20 cephalexin 500 mg capsule 500 mg PO Q6H #28 cap 11/04/20 doxycycline monohydrate 100 mg 100 mg PO BID #14 cap 11/04/20 capsule hydromorphone 2 mg tablet 2 mg PO Q6H PRN #5 tab 11/04/20 (Dilaudid) gabapentin 100 mg capsule 100 mg PO BID 30 Days #60 cap 11/15/20 lidocaine 5 % topical ointment 1 appl TOPICAL BID PRN 30 Days #50 11/15/20 g hyoscyamine sulfate 0.125 mg tablet 0.125 mg PO QID #7 tab 12/05/20 omeprazole 20 mg capsule,delayed 20 mg PO DAILY #90 cap 01/29/21 release Allergies Allergy/AdvReac Type Severity Reaction Status Date / Time morphine [MORPHINE] Allergy Intermediate NAUSEA, Verified 12/05/20 16:49 rash oxycodone [From PERCOCET] Allergy Intermediate ITCHY, rash Verified 12/05/20 16:49 penicillin V Allergy Intermediate hives Verified 12/05/20 16:49 simvastatin Allergy Intermediate rash Verified 12/05/20 16:49 hydrocodone [From VICODIN] Allergy Mild RASH Verified 12/05/20 16:49 amoxicillin [Amoxicillin] Allergy Unknown UNKNOWN Verified 12/05/20 16:49 Review of Systems Review of Systems: Constitutional : No Weight loss, pos Fever, pos Chills, pos Fatigue, pos Malaise ENT/Mouth : No sore throat, No Rhinorrhea Eyes: No Eye Pain, No Swelling, No Redness Cardiovascular : No Chest Pain, No SOB, No Dyspnea on Exertion, No Orthopnea, No Edema, No Palpitations Respiratory : pos Cough, No Sputum, No Wheezing Gastrointestinal : pos Nausea, pos Vomiting, pos Diarrhea, No Constipation, pos abdominal Pain, No Hematochezia, No Melena Genitourinary : No Dysuria, No Urinary Frequency, No Hematuria, Musculoskeletal : No joint pain, pos Myalgias, No Joint Swelling, pos back pain Skin : No Skin Lesions, No rash Neuro : pos Weakness, No Numbness, No Dizziness, No Headache Psych : pos Anxiety/Panic, No Depression, no SI Heme/Lymph: No Bruising, No Bleeding,No Lymphadenopathy Endocrine : No Polyuria, No Polydipsia All other systems reviewed and are negative Gastrointestinal: Gastrointestinal: Reports nausea PMFSH Past Medical History Attestation statement: The following information was validated with the patient. Medical History Anxiety and depression Asthma Crohn's disease GERD (gastroesophageal reflux disease) Hypercholesterolemia Hypertension IBS (irritable bowel syndrome) Migraine Obesity (BMI 30-39.9) OCD (obsessive compulsive disorder) Panic disorder PTSD (post-traumatic stress disorder) Seizure disorder Tobacco abuse Type 2 diabetes mellitus with hyperglycemia, with long-term current use of insulin Surgical History H/O arthroscopy H/O bilateral breast reduction surgery History of ankle surgery Previous section Family History Family History Father CVD (cerebrovascular disease) Diabetes Hypertension Mother Depression Chronic mental illness Maternal Grandmother Myocardial infarction CVD (cerebrovascular disease) Breast cancer Maternal Aunt Liver cancer Social History Social History Housing: Apartment Alcohol intake: never Patient Tobacco Use Status: Current everyday Tobacco user Tobacco use type: Cigarette Cigarettes Per Day: 6 Substance Use Type: Marijuana Advance Directives: No Current occupational status: disabled Current occupation: left handed Physical Exam Vital Signs: Vital Signs: Last Vital Signs Temp 98.3 F 03/05/21 18:54 Pulse 84 03/05/21 18:54 Resp 14 03/05/21 18:54 BP 149/69 H 03/05/21 18:54 Pulse Ox 95 03/05/21 18:54 Appearance: Alert. Oriented X3. No acute distress. Flat affect, had to ask a lo of questions to get a history from I am tired. Eyes: Pupils equal, round and reactive to light. ENT: Pharynx normal. Neck: Normal inspection. Neck supple. no meningeal signs CVS: Normal heart rate and rhythm. Pulses normal. Respiratory: No respiratory distress. Breath sounds normal. Abdomen: Soft and mild diffuse ttp no rebound Back: L sided pain reports she cannot lie on her back due to pain Skin: Skin warm and dry. Normal skin color. Normal skin turgor. Extremities: No lower extremity edema. Neuro: Oriented X 3. No motor deficit. No sensory deficit. Course Course Course Narrative: signed out to Dr. Huizar pending CT scan MDM - Nausea/Vomiting/Diarrhea MDM Narrative Medical decision making narrative: 40 yo female with hx of GERD, poorly controlled DM, HTN, HLD, asthma, migraines reports 4 days of headaches, back pain, cough, n/v/d abdominal pain states she had a negative rapid at home on Friday at this time will obtain basic labs, CXR, CT scan for possible IBS flare, COVID swab, IVF and supportive medications. I did ask her about her [facility] given pseudoseizures but she states she is not depressed or suicidal. Dispo per results and workup. Lab Data Result diagrams: 03/05/21 19:14 03/05/21 19:14 Labs: Lab Results 03/05/21 03/05/21 03/05/21 Range/Units 19:14 19:14 19:14 WBC 11.4 H (4.8-10.8) X10*3/uL RBC 4.93 (4.20-5.50) X10*6/uL Hgb 15.0 (12.0-16.0) g/dl Hct 45.5 (37.0-47.0) % MCV 92.3 (80.0-98.0) fL MCH 30.4 (27.0-33.0) pg MCHC 33.0 (31.0-35.0) g/dl RDW 12.3 (11.0-16.0) % Plt Count 199 (160-400) X10*3/uL MPV 11.3 (9.4-12.3) fL Immature Gran % (Auto) 0.7 H (0.0-0.4) % Neut % (Auto) 61.7 (45-73) % Lymph % (Auto) 27.9 (20-40) % Ransom % (Auto) 8.0 (2-11) % Eos % (Auto) 1.3 (0-4) % Baso % (Auto) 0.4 (0-2) % Lymph # (Auto) 3.2 (1.2-4.9) X10*3/uL Ransom # (Auto) 0.9 (0.1-1.2) X10*3/uL Eos # (Auto) 0.2 (0.0-0.4) X10*3/uL Baso # (Auto) 0.1 (0.0-0.2) X10*3/uL Abs Immat Gran (auto) 0.08 H (0.00-0.03) X10*3/uL Absolute Neuts (auto) 7.0 (2.0-8.3) x10*3/uL Absolute Nucleated RBC 0.000 (0.0-0.012) X10*3/uL Nucleated RBC % (auto) 0.0 (0.0-0.2) /100WBC VBG pH (7.32-7.43) VBG pCO2 mmHg VBG pO2 mmHg VBG HCO3 (22-26) mmol/L VBG O2 Saturation % VBG Base Excess mmol/L Sodium 134 L (135-145) mmol/L Potassium 4.6 (3.3-5.1) mmol/L Chloride 104 (96-108) mmol/L Carbon Dioxide 23 (22-29) mmol/L Anion Gap 12 (12-20) BUN 6 L (9-16) mg/dL Creatinine 0.76 (0.5-1.4) mg/dL Estim Creat Clear Calc TNP Estimated GFR > 60 Random Glucose 348 H (60-115) mg/dL Lactic Acid 1.2 (0.5-2.0) mmol/L Calcium 8.5 D (8.4-10.2) mg/dL Magnesium 1.9 (1.6-2.6) mg/dL Total Bilirubin 0.3 (0.0-1.0) mg/dL Direct Bilirubin < 0.2 (0.0-0.5) mg/dL AST 27 (5-31) U/L ALT 33 H (0-31) U/L Alkaline Phosphatase 87 (39-117) U/L Total Protein 7.4 (6.5-8.0) g/dL Albumin 3.8 (3.5-5.0) g/dL Lipase 52 (8-78) U/L Acetone, Qual (Negative) COVID-19 (ALEX) (Negative) COVID-19 Clin Com 03/05/21 03/05/21 03/05/21 Range/Units 19:14 19:14 19:24 WBC (4.8-10.8) X10*3/uL RBC (4.20-5.50) X10*6/uL Hgb (12.0-16.0) g/dl Hct (37.0-47.0) % MCV (80.0-98.0) fL MCH (27.0-33.0) pg MCHC (31.0-35.0) g/dl RDW (11.0-16.0) % Plt Count (160-400) X10*3/uL MPV (9.4-12.3) fL Immature Gran % (Auto) (0.0-0.4) % Neut % (Auto) (45-73) % Lymph % (Auto) (20-40) % Ransom % (Auto) (2-11) % Eos % (Auto) (0-4) % Baso % (Auto) (0-2) % Lymph # (Auto) (1.2-4.9) X10*3/uL Ransom # (Auto) (0.1-1.2) X10*3/uL Eos # (Auto) (0.0-0.4) X10*3/uL Baso # (Auto) (0.0-0.2) X10*3/uL Abs Immat Gran (auto) (0.00-0.03) X10*3/uL Absolute Neuts (auto) (2.0-8.3) x10*3/uL Absolute Nucleated RBC (0.0-0.012) X10*3/uL Nucleated RBC % (auto) (0.0-0.2) /100WBC VBG pH 7.36 (7.32-7.43) VBG pCO2 37 mmHg VBG pO2 36 mmHg VBG HCO3 21 L (22-26) mmol/L VBG O2 Saturation 61.0 % VBG Base Excess -3.0 mmol/L Sodium (135-145) mmol/L Potassium (3.3-5.1) mmol/L Chloride (96-108) mmol/L Carbon Dioxide (22-29) mmol/L Anion Gap (12-20) BUN (9-16) mg/dL Creatinine (0.5-1.4) mg/dL Estim Creat Clear Calc Estimated GFR Random Glucose (60-115) mg/dL Lactic Acid (0.5-2.0) mmol/L Calcium (8.4-10.2) mg/dL Magnesium (1.6-2.6) mg/dL Total Bilirubin (0.0-1.0) mg/dL Direct Bilirubin (0.0-0.5) mg/dL AST (5-31) U/L ALT (0-31) U/L Alkaline Phosphatase (39-117) U/L Total Protein (6.5-8.0) g/dL Albumin (3.5-5.0) g/dL Lipase (8-78) U/L Acetone, Qual Negative (Negative) COVID-19 (ALEX) Negative (Negative) COVID-19 Clin Com See Note Discharge Plan Discharge Clinical Impression: Acute viral syndrome, Myalgia Prescriptions: No Action metformin 1,000 mg tablet 1,000 mg PO BID Qty: 60 RF: 0 cyclobenzaprine 5 mg tablet 5 mg PO TID PRN (Reason: muscle spasm) Qty: 20 RF: 0 albuterol sulfate 90 mcg/actuation HFA aerosol inhaler 2 puff inhalation Q4-6H PRN (Reason: for muscle spasm) 30 Days Qty: 8.5 RF: 5 Jardiance 25 mg tablet 25 mg PO DAILY Qty: 30 RF: 3 (DME) pen needle, diabetic [BD Ultra-Fine Short Pen Needle] 31 gauge x 5/16 needle See Rx Instructions .ROUTE .MEDSUPPLY Qty: 50 RF: 5 silver sulfadiazine [Silvadene] 1 % cream 1 appl topical DAILY Qty: 25 RF: 0 sumatriptan succinate 50 mg tablet See Rx Instructions PO .COMPLEX Qty: 10 RF: 1 meloxicam 7.5 mg tablet 7.5 mg PO DAILY 90 Days Qty: 90 RF: 0 omeprazole 20 mg capsule,delayed release(DR/EC) 20 mg PO DAILY Qty: 90 RF: 2 doxycycline monohydrate 100 mg capsule 100 mg PO BID Qty: 14 RF: 0 cephalexin 500 mg capsule 500 mg PO Q6H Qty: 28 RF: 0 hydromorphone [Dilaudid] 2 mg tablet 2 mg PO Q6H PRN (Reason: severe pain (scale score 7-10)) Qty: 5 RF: 0 acetaminophen [Tylenol Extra Strength] 500 mg tablet 500 mg PO Q6H PRN (Reason: pain or fever) Qty: 20 RF: 0 naproxen 500 mg tablet 500 mg PO BID PRN (Reason: pain) 10 Days Qty: 20 RF: 0 hyoscyamine sulfate 0.125 mg tablet 0.125 mg PO QID Qty: 7 RF: 0 clonazepam 1 mg tablet 1 mg PO BID RF: 0 clonidine HCl 0.1 mg tablet 0.1 mg PO BEDTIME RF: 0 Lantus Solostar U-100 Insulin 100 unit/mL (3 mL) insulin pen 24 unit subcut QAM RF: 0 quetiapine [Seroquel] 100 mg tablet 400 mg PO BEDTIME RF: 0 venlafaxine [Effexor XR] 150 mg capsule,extended release 24hr See Rx Instructions PO DAILY RF: 0 lidocaine 5 % ointment 1 appl topical BID PRN (Reason: pain) 30 Days Qty: 50 RF: 0 gabapentin 100 mg capsule 100 mg PO BID 30 Days Qty: 60 RF: 0
[2021-03-05] MEDS: diphenhydrAMINE HCL 50 MG/ML VIAL 25 MG IVPUSH (19:26)
[2021-03-05 19:28] LABS: MANUAL DIFF FLAG NO
[2021-03-05] MEDS: Ketorolac Tromethamine 30 MG/ML VIAL IVPUSH (19:28)
[2021-03-05 19:29] LABS: Basophils Absolute Auto 0.1 X10*3/uL (0.0-0.2); Basophils Percent Auto 0.4 % (0-2); Eosinophils Absolute Auto 0.2 X10*3/uL (0.0-0.4); Eosinophils Percent Auto 1.3 % (0-4); Hematocrit 45.5 % (37.0-47.0); Imm Gran Abs Auto 0.08 X10*3/uL (0.00-0.03); Imm Gran Pct Auto 0.7 % (0.0-0.4); Lymphocytes Absolute Auto 3.2 X10*3/uL (1.2-4.9); Lymphocytes Percent Auto 27.9 % (20-40); Mean Corpuscular Hemoglobin 30.4 pg (27.0-33.0); Mean Corpuscular Volume 92.3 fL (80.0-98.0); Mean Platelet Volume 11.3 fL (9.4-12.3); Monocytes Absolute Auto 0.9 X10*3/uL (0.1-1.2); Neutrophils Percent Auto 61.7 % (45-73); Platelet Count 199 X10*3/uL (160-400); Red Blood Count 4.93 X10*6/uL (4.20-5.50); Red Cell Distribution Width 12.3 % (11.0-16.0); White Blood Count 11.4 X10*3/uL (4.8-10.8)
[2021-03-05 19:31] LABS: VBG HCO3 21 mmol/L (22-26); VBG pCO2 37 mmHg; VBG pH 7.36 (7.32-7.43); VBG pO2 36 mmHg
[2021-03-05] MEDS: Metoclopramide HCl 10 MG/2 ML VIAL IVPUSH (19:31)
[2021-03-05 19:32] LABS: Venous Blood Gas Refer to POC result
[2021-03-05] MEDS: 0.9 % Sodium Chloride 1,000 ML 999 ML IVCONT (19:34)
[2021-03-05 19:40] LABS: Acetone, serum QL Negative (Negative); Lactic Acid 1.2 mmol/L (0.5-2.0)
[2021-03-05 19:46] LABS: Alanine Aminotransferase 33 U/L (0-31); Albumin Level 3.8 g/dL (3.5-5.0); Alkaline Phosphatase 87 U/L (39-117); Anion Gap 12 (12-20); Aspartate Amino Transferase 27 U/L (5-31); Bilirubin Direct < 0.2 mg/dL (0.0-0.5); Bilirubin Total 0.3 mg/dL (0.0-1.0); Blood Urea Nitrogen 6 mg/dL (9-16); COVID-19 Test Negative (Negative); Calcium 8.5 mg/dL (8.4-10.2); Carbon Dioxide 23 mmol/L (22-29); Chloride 104 mmol/L (96-108); Estimated Glomerular Filt Rate > 60; Glucose Random 348 mg/dL (60-115); Lipase 52 U/L (8-78); Magnesium 1.9 mg/dL (1.6-2.6); Potassium 4.6 mmol/L (3.3-5.1); Sodium 134 mmol/L (135-145); Total Protein 7.4 g/dL (6.5-8.0)
--- NOTE | 2021-03-05 21:48 | PC.NURSE ---
PT needs to provide urine sample. With first collection attempt by the RN PT stated that she did not have to go. Second attempt with PCT PT attempted to transfer to wheelchair at bed side, became weak and started to demonstrate shaking fit. PT to be moved into room 22 and placed on bed mcfarlane.
--- NOTE | 2021-03-05 22:13 | PC.NURSE ---
PT put on bed mcfarlane and produced minimal amount of urine that is insufficient to perform UA and preg test.
[2021-03-05 22:35] LABS: HCG Quantitative < 2 mIU/mL
[2021-03-05 22:50] LABS: Appearance Urine CLEAR; Color Urine YELLOW; Glucose Urine UA 500 MG/DL (NEG); Leukocyte Esterase Urine NEG (NEG); Nitrite Urine NEG (NEG); PH 5.5 (5.0-8.0); UACC Culture Trigger NO; Urine Blood TRACE (NEG); Urine Ketones >=80 MG/DL (NEG); Urine Protein NEG (NEG-TRACE)
[2021-03-05 22:52] LABS: UPreg QC Valid YES; Urine Pregnancy NEGATIVE (NEGATIVE)
[2021-03-05 22:58] LABS: Bacteria Urine TRACE /LPF; RBC Urine 0-2 /HPF (0); Squamous Epithelial Cell Urine 1+ /LPF; WBC Urine 0 /HPF (0-4)
[2021-03-05] MEDS: iohexoL 350 MG/ML 100 ML INFUS..BTL 85 ML IV (23:40)
== END 2021-03-06 01:15 | disposition home or self-care (01) ==
PROVIDERS: Emergency Medicine; Emergency Provider Emergency Medicine Emergency Medical Services; PCP Internal Medicine
DX: B34.9 Viral infection, unspecified (principal); M79.10 Myalgia, unspecified site; Z20.822 Contact with and (suspected) exposure to COVID-19; R11.2 Nausea with vomiting, unspecified; E11.9 Type 2 diabetes mellitus without complications; I10 Essential (primary) hypertension; E78.5 Hyperlipidemia, unspecified; F17.200 Nicotine dependence, unspecified, uncomplicated; F12.90 Cannabis use, unspecified, uncomplicated; Z91.14 Patient's other noncompliance with medication regimen
CPT/HCPCS: 36415; 71045; 74177; 80048; 80076; 81001; 81025; 82009; 82803; 83605; 83690; 83735; 84702; 85025; 87635; 99283; 99284; J1200; J1885; J2765; Q9967

== ENCOUNTER 2021-03-10 13:46 | Emergency (ER) | payer MEDICARE, MEDICAID, SELFPAY ==
[2021-03-10 14:53] VITALS: BP 140/85; PULSE 100; RESP 19; TEMP 36.6; O2SAT 99; BMI 31.1
--- NOTE | 2021-03-10 15:36 | ED_ITS ---
HPI - Female Genitourinary General Chief complaint: Wound/Laceration Stated complaint: vaginal abscess/ covid+ Time Seen by Provider: 03/10/21 15:29 Source: patient Mode of arrival: ambulatory Limitations: no limitations History of Present Illness HPI Narrative: Patient is a 40-year-old female past history of asthma, Crohns, IBS, GERD, hypertension, hypercholesterolemia, migraines, obesity, and uncontrolled type 2 diabetes. She presents to the emergency department for evaluation of pain, swelling, and redness of her right labia. She reports the onset yesterday morning. The area is firm and very tender to touch. She reports a history of similar presentations in the past but are usually very small and drain a clear fluid. Denies fevers, chills, nausea, vomiting, abdominal pain, difficulty urinating, dysuria, vaginal discharge. She denies concern for sexually transmitted infection, she has not been sexually active in greater than 1 year. In addition, she reports being COVID-19 positive 4 days ago from her symptoms were mild with cough, sore throat, fatigue. Her symptoms have since resolved. Her diabetes was being managed by her primary care provider, she reports previously taking Lantus 50 units daily, she reports that this was not invite her blood sugars continued to remain in the 300s. Therefore, she has not taken any insulin or oral hypoglycemics in 3 months. Related Data Home Medications Medication Instructions Recorded Confirmed clonazepam 1 mg tablet 1 mg PO BID 12/31/19 06/01/20 clonidine HCl 0.1 mg tablet 0.1 mg PO BEDTIME 12/31/19 06/01/20 insulin glargine 100 unit/mL (3 24 unit SUBCUT QAM ml 12/31/19 06/01/20 mL) subcutaneous pen (Lantus Solostar U-100 Insulin) quetiapine 100 mg tablet (Seroquel) 400 mg PO BEDTIME tab 12/31/19 06/01/20 venlafaxine 150 mg See Rx Instructions PO DAILY 06/01/20 06/01/20 capsule,extended release 24 hr (Effexor XR) Previous Rx's Medication Instructions Recorded metformin 1,000 mg tablet 1,000 mg PO BID #60 tab 12/24/19 cyclobenzaprine 5 mg tablet 5 mg PO TID PRN #20 tab 01/05/20 albuterol sulfate 90 mcg/actuation 2 puff INHALATION Q4-6H PRN 30 05/26/20 aerosol inhaler Days #8.5 g empagliflozin 25 mg tablet 25 mg PO DAILY #30 tab 05/26/20 (Jardiance) pen needle, diabetic 31 gauge x #50 ea 05/26/20/ (BD Ultra-Fine Short Pen Needle) silver sulfadiazine 1 % topical 1 appl TOPICAL DAILY #25 g 05/30/20 cream (Silvadene) sumatriptan succinate 50 mg tablet See Rx Instructions PO .COMPLEX 06/30/20 #10 tab meloxicam 7.5 mg tablet 7.5 mg PO DAILY 90 Days #90 tab 07/20/20 acetaminophen 500 mg tablet 500 mg PO Q6H PRN #20 tab 10/30/20 (Tylenol Extra Strength) naproxen 500 mg tablet 500 mg PO BID PRN 10 Days #20 tab 10/30/20 cephalexin 500 mg capsule 500 mg PO Q6H #28 cap 11/04/20 doxycycline monohydrate 100 mg 100 mg PO BID #14 cap 11/04/20 capsule hydromorphone 2 mg tablet 2 mg PO Q6H PRN #5 tab 11/04/20 (Dilaudid) gabapentin 100 mg capsule 100 mg PO BID 30 Days #60 cap 11/15/20 lidocaine 5 % topical ointment 1 appl TOPICAL BID PRN 30 Days #50 11/15/20 g hyoscyamine sulfate 0.125 mg tablet 0.125 mg PO QID #7 tab 12/05/20 omeprazole 20 mg capsule,delayed 20 mg PO DAILY #90 cap 01/29/21 release cefpodoxime 100 mg tablet 100 mg PO Q12H 7 Days #14 tab 03/10/21 doxycycline hyclate 100 mg capsule 100 mg PO BID 7 Days #14 cap 03/10/21 fluconazole 150 mg tablet 150 mg PO Q3D #2 tab 03/10/21 (Diflucan) Allergies Allergy/AdvReac Type Severity Reaction Status Date / Time morphine [MORPHINE] Allergy Intermediate NAUSEA, Verified 12/05/20 16:49 rash oxycodone [From PERCOCET] Allergy Intermediate ITCHY, rash Verified 12/05/20 16:49 penicillin V Allergy Intermediate hives Verified 12/05/20 16:49 simvastatin Allergy Intermediate rash Verified 12/05/20 16:49 hydrocodone [From VICODIN] Allergy Mild RASH Verified 12/05/20 16:49 amoxicillin [Amoxicillin] Allergy Unknown UNKNOWN Verified 12/05/20 16:49 Review of Systems Review of Systems: Constitutional : No Fever, No Chills ENT/Mouth : No sore throat, No Rhinorrhea Eyes: No Eye Pain, No Redness Cardiovascular : No Chest Pain, No SOB Respiratory : No Cough, No Sputum, No Wheezing Gastrointestinal : No Nausea, No Vomiting, No Diarrhea, positive abdominal pain, Genitourinary : + Labia pain and swelling. No irregular bleeding, No Dysuria, No Urinary Frequency, No pelvic pain Musculoskeletal : No Myalgias Skin : No rash Neuro : No Weakness, No Headache Psych : No Anxiety/Panic, No Depression Heme/Lymph: No bruising, No Lymphadenopathy Endocrine : No Polyuria, No Polydipsia All other systems reviewed and are negative [facility] Past Medical History Attestation statement: The following information was validated with the patient. Source: old records reviewed Medical History Anxiety and depression Asthma Crohn's disease GERD (gastroesophageal reflux disease) Hypercholesterolemia Hypertension IBS (irritable bowel syndrome) Migraine Obesity (BMI 30-39.9) OCD (obsessive compulsive disorder) Panic disorder PTSD (post-traumatic stress disorder) Seizure disorder Tobacco abuse Type 2 diabetes mellitus with hyperglycemia, with long-term current use of insulin Surgical History H/O arthroscopy H/O bilateral breast reduction surgery History of ankle surgery Previous section Family History Family History Father CVD (cerebrovascular disease) Diabetes Hypertension Mother Depression Chronic mental illness Maternal Grandmother Myocardial infarction CVD (cerebrovascular disease) Breast cancer Maternal Aunt Liver cancer Social History Social History Housing: Apartment Alcohol intake: never Patient Tobacco Use Status: Current everyday Tobacco user Tobacco use type: Cigarette Cigarettes Per Day: 6 Substance Use Type: Marijuana Advance Directives: No Advance Directives Information Provided: No Patient : No Current occupational status: disabled Current occupation: left handed Physical Exam Vital Signs: Vital Signs: Last Vital Signs Temp 98 F 03/10/21 14:53 Pulse 100 03/10/21 14:53 Resp 19 03/10/21 14:53 BP 140/85 H 03/10/21 14:53 Pulse Ox 99 03/10/21 14:53 BMI result Body Mass Index 31.1 Vital signs have been reviewed and appeared to be correct. Blood pressure mildly elevated 140/85.? Heart rate normal.? Respiration rate normal. Temperature normal.? Oxygen saturation normal. Appearance: Alert.?Oriented to person, place and time. No acute distress.?Normal affect. Eyes: Pupils equal, round and reactive to light.? ENT: Pharynx normal.?? Neck: Normal inspection.? Neck supple.?? CVS: Heart sounds normal. Normal heart rate and rhythm.? Pulses normal.?? Respiratory: No respiratory distress.? Lung sounds clear to auscultation bilaterally?? Abdomen: Soft and non-tender. Normoactive bowel sounds. Genitourinary:??Right external labia indurated with erythema, swelling, tenderness to touch, no fluctuance, does not extend into the perineum. There were scattered small pustules across her suprapubic region. Skin: Skin warm and dry.? Normal skin color.? Normal skin turgor.?? Extremities: No lower extremity edema.? Neuro: Moves all extremities spontaneously. Sensation intact bilaterally. No focal neuro deficits. Course Course Course Narrative: Patient is a 40-year-old female with a history of uncontrolled diabetes presenting for evaluation of vulvitis. Urinalysis unremarkable for infection. Cellulitis likely to be due to fungal infection with superimposed bacterial infection, low suspicion for Eli's gangrene as the onset was not rapid, it does not extend into the perineum, she does not have severe excruciating pain disproportionate to her exam, fevers, chills, abdominal pain. Patient was offered to remain in the emergency department to have serum labs in addition to a CT scan to definitively exclude Eli gangrene, however after at length discussion she declined. She preferred to be discharged home with anti fungal and antibiotics and close monitoring. We discussed strict return precautions to present to the emergency department for any severe or worsening symptoms or rapid expansion of her cellulitis. In addition, we discussed the importance of managing diabetes, and complications over time can affect every organ of her body. Therefore, she was discharged home with new prescription for Diflucan, cefpodoxime and doxycycline. Patient verbalizes complete understanding and is agreeable with plan. MDM - Female Genitourinary Lab Data Labs: Lab Results 03/10/21 Range/Units 15:47 Urine Color YELLOW Urine Appearance CLEAR Urine pH 6.0 (5.0-8.0) Ur Specific [place] <= 1.005 (1.005-1.025) Urine Protein NEG (NEG-TRACE) MG/DL Urine Glucose (UA) >=1000 H (NEG) MG/DL Urine Ketones 5 (NEG) MG/DL Urine Blood TRACE (NEG) Urine Nitrite NEG (NEG) Ur Leukocyte Esterase NEG (NEG) Urine RBC 1-4 (0) /HPF Urine WBC 1-4 (0-4) /HPF Ur Squamous Epith Cells 1+ /LPF Urine Bacteria TRACE /LPF Urine Mucus TRACE /LPF Urine Yeast TRACE /HPF Discharge Plan Discharge Clinical Impression: Acute vulvitis Patient Disposition: Home, Self-Care Additional Instructions: You were evaluated in the emergency department before concerns about pain and swelling of your labia. There being discharged with a prescription for an antifungal medication, and 2 antibiotics to treat cellulitis. We had an at length discussion about Eli's gangrene. You were provided with the option to be discharged home with antibiotics strict follow-up or to remain in the emergency department to have blood work and a CT scan. You expressed a preference to be discharged home with medications. As we discussed if the swelling, redness extends or increases significantly over s short period of time, or if your pain becomes severely worse, if you develops fevers, chills, nausea, vomiting, abdominal pain, inability to urinate you should return immediately to the emergency department. Please follow-up with your primary care doctor in 1-3 days, and as we discussed you should work with your primary care provider to manage your diabetes Prescriptions: New fluconazole [Diflucan] 150 mg tablet 150 mg PO Q3D Qty: 2 RF: 0 doxycycline hyclate 100 mg capsule 100 mg PO BID 7 Days Qty: 14 RF: 0 cefpodoxime 100 mg tablet 100 mg PO Q12H 7 Days Qty: 14 RF: 0 No Action metformin 1,000 mg tablet 1,000 mg PO BID Qty: 60 RF: 0 cyclobenzaprine 5 mg tablet 5 mg PO TID PRN (Reason: muscle spasm) Qty: 20 RF: 0 albuterol sulfate 90 mcg/actuation HFA aerosol inhaler 2 puff inhalation Q4-6H PRN (Reason: for muscle spasm) 30 Days Qty: 8.5 RF: 5 Jardiance 25 mg tablet 25 mg PO DAILY Qty: 30 RF: 3 (DME) pen needle, diabetic [BD Ultra-Fine Short Pen Needle] 31 gauge x 5/16 needle See Rx Instructions .ROUTE .MEDSUPPLY Qty: 50 RF: 5 silver sulfadiazine [Silvadene] 1 % cream 1 appl topical DAILY Qty: 25 RF: 0 sumatriptan succinate 50 mg tablet See Rx Instructions PO .COMPLEX Qty: 10 RF: 1 meloxicam 7.5 mg tablet 7.5 mg PO DAILY 90 Days Qty: 90 RF: 0 omeprazole 20 mg capsule,delayed release(DR/EC) 20 mg PO DAILY Qty: 90 RF: 2 doxycycline monohydrate 100 mg capsule 100 mg PO BID Qty: 14 RF: 0 cephalexin 500 mg capsule 500 mg PO Q6H Qty: 28 RF: 0 hydromorphone [Dilaudid] 2 mg tablet 2 mg PO Q6H PRN (Reason: severe pain (scale score 7-10)) Qty: 5 RF: 0 acetaminophen [Tylenol Extra Strength] 500 mg tablet 500 mg PO Q6H PRN (Reason: pain or fever) Qty: 20 RF: 0 naproxen 500 mg tablet 500 mg PO BID PRN (Reason: pain) 10 Days Qty: 20 RF: 0 hyoscyamine sulfate 0.125 mg tablet 0.125 mg PO QID Qty: 7 RF: 0 clonazepam 1 mg tablet 1 mg PO BID RF: 0 clonidine HCl 0.1 mg tablet 0.1 mg PO BEDTIME RF: 0 Lantus Solostar U-100 Insulin 100 unit/mL (3 mL) insulin pen 24 unit subcut QAM RF: 0 quetiapine [Seroquel] 100 mg tablet 400 mg PO BEDTIME RF: 0 venlafaxine [Effexor XR] 150 mg capsule,extended release 24hr See Rx Instructions PO DAILY RF: 0 lidocaine 5 % ointment 1 appl topical BID PRN (Reason: pain) 30 Days Qty: 50 RF: 0 gabapentin 100 mg capsule 100 mg PO BID 30 Days Qty: 60 RF: 0 Interventions: ED Discharge Assessment Last Done: 03/10/21 16:39 Discharge Date/Time: 03/10/21 16:40
[2021-03-10 16:01] LABS: Appearance Urine CLEAR; Color Urine YELLOW; Glucose Urine UA >=1000 MG/DL (NEG); Leukocyte Esterase Urine NEG (NEG); Nitrite Urine NEG (NEG); Specific Gravity - Urine <= 1.005 (1.005-1.025); UACC Culture Trigger NO; Urine Blood TRACE (NEG); Urine Ketones 5 MG/DL (NEG); Urine Protein NEG (NEG-TRACE)
[2021-03-10 16:22] LABS: Squamous Epithelial Cell Urine 1+ /LPF
[2021-03-10 16:23] LABS: Bacteria Urine TRACE /LPF; Mucus Urine TRACE /LPF
== END 2021-03-10 16:40 | disposition home or self-care (01) ==
PROVIDERS: Nurse Practitioner Family; Emergency Provider Internal Medicine; PCP Internal Medicine
DX: N76.2 Acute vulvitis (principal); I10 Essential (primary) hypertension; E78.5 Hyperlipidemia, unspecified; F17.200 Nicotine dependence, unspecified, uncomplicated; F12.90 Cannabis use, unspecified, uncomplicated; E11.9 Type 2 diabetes mellitus without complications; Z91.14 Patient's other noncompliance with medication regimen; Z86.16 Personal history of COVID-19
CPT/HCPCS: 81001; 99283

== ENCOUNTER 2021-04-26 19:05 | Emergency (ER) | payer MEDICARE, MEDICAID, SELFPAY ==
--- NOTE | ~2021-04-26 | XR_ITS ---
EXAMINATION: XR HAND, LEFT CLINICAL INFORMATION: Trauma and pain, site not specified. COMPARISON: None TECHNIQUE: PA, lateral, and oblique views of the left hand. FINDINGS: The bones and soft tissues are normal. No fracture. Alignment is anatomic. Joint spaces are maintained. No erosions or soft tissue calcifications. XR/XR hand LT min 3V IMPRESSION: Normal left hand.
[2021-04-26 19:21] VITALS: BP 151/86; PULSE 123; RESP 16; TEMP 36.6; O2SAT 96; BMI 34.3
[2021-04-26 19:46] LABS: Glucose, Whole Blood 505 mg/dL (60-115)
--- NOTE | 2021-04-26 20:07 | ED_ITS ---
HPI - Extremity Problem General Chief complaint: Extremity Injury, Upper Stated complaint: left wrist pain Time Seen by Provider: 04/26/21 19:57 Source: patient Mode of arrival: ambulatory Limitations: no limitations History of Present Illness HPI Narrative: Patient is a 40-year-old female past history of asthma, Crohns, IBS, GERD, hypertension, hypercholesterolemia, migraines, obesity, and uncontrolled type 2 diabetes, non compliant with home medications. She presents today for evaluation of a left hand injury, she reports trying to pull apart to shopping carts yesterday and in doing so part of the cart his her hand and metal scratched the surface of her left hand. It is now red, swollen, painful to touch. She denies any recent fevers, chills, cough, cough or shortness of breath, nausea, vomiting, abdominal pain, dysuria, urinary frequency, or generalized weakness. Related Data Home Medications Medication Instructions Recorded Confirmed clonazepam 1 mg tablet 1 mg PO BID 12/31/19 06/01/20 clonidine HCl 0.1 mg tablet 0.1 mg PO BEDTIME 12/31/19 06/01/20 insulin glargine 100 unit/mL (3 24 unit SUBCUT QAM ml 12/31/19 06/01/20 mL) subcutaneous pen (Lantus Solostar U-100 Insulin) quetiapine 100 mg tablet (Seroquel) 400 mg PO BEDTIME tab 12/31/19 06/01/20 venlafaxine 150 mg See Rx Instructions PO DAILY 06/01/20 06/01/20 capsule,extended release 24 hr (Effexor XR) Previous Rx's Medication Instructions Recorded metformin 1,000 mg tablet 1,000 mg PO BID #60 tab 12/24/19 cyclobenzaprine 5 mg tablet 5 mg PO TID PRN #20 tab 01/05/20 albuterol sulfate 90 mcg/actuation 2 puff INHALATION Q4-6H PRN 30 05/26/20 aerosol inhaler Days #8.5 g empagliflozin 25 mg tablet 25 mg PO DAILY #30 tab 05/26/20 (Jardiance) pen needle, diabetic 31 gauge x #50 ea 05/26/20/16 (BD Ultra-Fine Short Pen Needle) silver sulfadiazine 1 % topical 1 appl TOPICAL DAILY #25 g 05/30/20 cream (Silvadene) sumatriptan succinate 50 mg tablet See Rx Instructions PO .COMPLEX 06/30/20 #10 tab meloxicam 7.5 mg tablet 7.5 mg PO DAILY 90 Days #90 tab 07/20/20 acetaminophen 500 mg tablet 500 mg PO Q6H PRN #20 tab 10/30/20 (Tylenol Extra Strength) naproxen 500 mg tablet 500 mg PO BID PRN 10 Days #20 tab 10/30/20 cephalexin 500 mg capsule 500 mg PO Q6H #28 cap 11/04/20 doxycycline monohydrate 100 mg 100 mg PO BID #14 cap 11/04/20 capsule hydromorphone 2 mg tablet 2 mg PO Q6H PRN #5 tab 11/04/20 (Dilaudid) gabapentin 100 mg capsule 100 mg PO BID 30 Days #60 cap 11/15/20 lidocaine 5 % topical ointment 1 appl TOPICAL BID PRN 30 Days #50 11/15/20 g hyoscyamine sulfate 0.125 mg tablet 0.125 mg PO QID #7 tab 12/05/20 omeprazole 20 mg capsule,delayed 20 mg PO DAILY #90 cap 01/29/21 release cefpodoxime 100 mg tablet 100 mg PO Q12H 7 Days #14 tab 03/10/21 doxycycline hyclate 100 mg capsule 100 mg PO BID 7 Days #14 cap 03/10/21 fluconazole 150 mg tablet 150 mg PO Q3D #2 tab 03/10/21 (Diflucan) cephalexin 500 mg capsule 500 mg PO QID 7 Days #28 cap 04/26/21 doxycycline hyclate 100 mg capsule 100 mg PO BID 7 Days #14 cap 04/26/21 Allergies Allergy/AdvReac Type Severity Reaction Status Date / Time morphine [MORPHINE] Allergy Intermediate NAUSEA, Verified 12/05/20 16:49 rash oxycodone [From PERCOCET] Allergy Intermediate ITCHY, rash Verified 12/05/20 16:49 penicillin V Allergy Intermediate hives Verified 12/05/20 16:49 simvastatin Allergy Intermediate rash Verified 12/05/20 16:49 hydrocodone [From VICODIN] Allergy Mild RASH Verified 12/05/20 16:49 amoxicillin [Amoxicillin] Allergy Unknown UNKNOWN Verified 12/05/20 16:49 Review of Systems Review of Systems: Constitutional : No Fever, No Chills ENT/Mouth : No Ear Pain, No Nasal Congestion, No sore throat Eyes: No Eye Pain, No Swelling, No Redness Cardiovascular : No Chest Pain, No SOB Respiratory : No Cough, No Sputum, No Dyspnea Gastrointestinal : No Nausea, No Vomiting, No Diarrhea, No Hematochezia, No Melena Genitourinary : No Dysuria, No Urinary Frequency, No Hematuria Musculoskeletal : No Myalgias Skin : Left hand redness and pain Neuro : No Weakness, No Numbness, No Paresthesias, No Dizziness, No Headache Heme/Lymph: No Lymphadenopathy Endocrine : No Polyuria, No Polydipsia Yes all other systems are reviewed and are negative REPLACED BY [facility] Past Medical History Medical History Anxiety and depression Asthma Crohn's disease GERD (gastroesophageal reflux disease) Hypercholesterolemia Hypertension IBS (irritable bowel syndrome) Migraine Obesity (BMI 30-39.9) OCD (obsessive compulsive disorder) Panic disorder PTSD (post-traumatic stress disorder) Seizure disorder Tobacco abuse Type 2 diabetes mellitus with hyperglycemia, with long-term current use of insulin Surgical History H/O arthroscopy H/O bilateral breast reduction surgery History of ankle surgery Previous section Family History Family History Father CVD (cerebrovascular disease) Diabetes Hypertension Mother Depression Chronic mental illness Maternal Grandmother Myocardial infarction CVD (cerebrovascular disease) Breast cancer Maternal Aunt Liver cancer Social History Social History Housing: Apartment Alcohol intake: never Patient Tobacco Use Status: Current everyday Tobacco user Tobacco use type: Cigarette Cigarettes Per Day: 6 Substance Use Type: Marijuana Advance Directives: No Advance Directives Information Provided: No Current occupational status: disabled Current occupation: left handed Physical Exam Vital Signs: Vital Signs: Last Vital Signs Temp 97.9 F 04/26/21 21:03 Pulse 79 04/26/21 21:03 Resp 16 04/26/21 21:03 BP 116/66 04/26/21 21:03 Pulse Ox 97 04/26/21 21:03 BMI result Body Mass Index 34.3 Vital signs have been reviewed and appeared to be correct. Blood pressure elevated 151/86, tachycardia 123 Respiration rate normal. Temperature normal.? Oxygen saturation normal. Appearance: Alert.?Oriented to person, place and time. No acute distr ess.?Normal affect. Eyes: Pupils equal, round and reactive to light.? ENT: Pharynx normal.?? Neck: Normal inspection.? Neck supple.?? CVS: Heart sounds normal. Tachycardia.? Pulses normal.?? Respiratory: No respiratory distress.? Lung sounds clear to auscultation bilaterally?? Abdomen: Soft and non-tender. Normoactive bowel sounds. No pulsatile mass.?? Skin: Skin warm and dry.? Normal skin color.? Normal skin turgor.?? Left dorsal hand with 2cm x 1cm area of erythema and swelling, indurated, no fluctuance Extremities: No lower extremity edema.? Neuro: Moves all extremities spontaneously. Sensation intact bilaterally. CN II- XII intact. No focal neuro deficits. Ambulates with normal steady gait. Course Course Course Narrative: Patient is a 40-year-old female being evaluated for left hand pain after an injury yesterday. Patient is hypertensive 151/86 and tachycardic in the 120s, I suspect that part of this may be due to pain but also due to her hyperglycemia. She is noncompliant with her diabetes regimen, not taking any oral anti- hyperglycemics or insulin. She states that ?it is too much? and does not intend on taking her medications at home after discharge. Will give patient IV fluids for resuscitation I suspect that that will help to bring down her blood sugar, and subsequently her heart rate. Will obtain x-ray of the hand to exclude fracture dislocation. Will update tetanus. States she is not taking meloxicam and naproxen as listed in her home medications, will administer dose of Toradol for pain. Cephalexin for early cellulitis, she does have an allergy to penicillin but she has taken cephalexin in the past without any interaction. I discussed with patient the possibility of acute complications given her and manage diabetes, significant hyperglycemia, and tachycardia, offered patient to have serum labs obtained to evaluate for leukocytosis, anemia, normal electrolyt es, abnormal kidney function, and possible DKA however patient declines at this time. She is alert and oriented and capable of making her own medical decisions. She states that at this time she is not concerned about those things and would like to focus on her hand. We had an at length discussion about complications associated with diabetes and poor management over time, she is not following with her primary care doctor regularly which I highly encouraged her to contact her PCP to schedule an appointment. Reevaluation(s) Reevaluation #1: Went to bedside to evaluate patient. She was resting comfortably with her eyes closed. Has received 1 L of IV fluids thus far. Heart rate has already improved to 75. Time: 21:01 Reevaluation #2: Left hand x ray is normal no acute fracture dislocation. Discussed plan of care for discharge home, new prescription for Keflex and doxycycline for treatment in a cellulitis. Again discussed importance of management of her diabetes. Tachycardia improved, repeat blood sugar is 508, she continues to decline further treatment or evaluation of this. Patient is agreeable with plan of care for discharge. Discussed reasons to return to the emergency department, and all questions were answered. Time: 21:33 MDM - Extremity (Nontraumatic) Lab Data Labs: Lab Results 04/26/21 Range/Units 19:40 POC Glucose 505 H* (60-115) mg/dL Imaging Data left hand XR: Radiologist's impression: FINDINGS: The bones and soft tissues are normal. No fracture. Alignment is anatomic. Joint spaces are maintained. No erosions or soft tissue calcifications.? XR/XR hand LT min 3V IMPRESSION: Normal left hand. Discharge Plan Discharge Clinical Impression: Wound cellulitis, Uncontrolled type 2 diabetes mellitus with hyperglycemia Patient Disposition: Home, Self-Care Instructions: Cellulitis (ED), Type 2 Diabetes Management for Adults (ED) Additional Instructions: You have been given a new prescription for Keflex to take every 6 hours for 7 days and doxycycline to take every 12 hours for 7 days for treatment of the cellulitis to your hand. Please take these medications for the entire course. You should contact your primary care provider to schedule follow-up appointment in 1-2 days. Additionally, as we discussed it is very important that you manage your diabetes and take your medications as prescribed by your doctor and follow a diabetic diet to prevent further complications from diabetes. You may return to the emergency department at any time for any new or worsening symptoms or concerns Prescriptions: New cephalexin 500 mg capsule 500 mg PO QID 7 Days Qty: 28 0RF doxycycline hyclate 100 mg capsule 100 mg PO BID 7 Days Qty: 14 0RF No Action metformin 1,000 mg tablet 1,000 mg PO BID Qty: 60 0RF cyclobenzaprine 5 mg tablet 5 mg PO TID PRN (Reason: muscle spasm) Qty: 20 0RF albuterol sulfate 90 mcg/actuation HFA aerosol inhaler 2 puff inhalation Q4-6H PRN (Reason: for muscle spasm) 30 Days Qty: 8.5 5RF Jardiance 25 mg tablet 25 mg PO DAILY Qty: 30 3RF (DME) pen needle, diabetic [BD Ultra-Fine Short Pen Needle] 31 gauge x 5/16 needle See Rx Instructions .ROUTE .MEDSUPPLY Qty: 50 5RF Rx Instructions: As directed daily with insulin pen silver sulfadiazine [Silvadene] 1 % cream 1 appl topical DAILY Qty: 25 0RF Rx Instructions: apply a 1.5 mm thickness sumatriptan succinate 50 mg tablet See Rx Instructions PO .COMPLEX Qty: 10 1RF Rx Instructions: take 1 tab at onset of headache; if no relief may repeat 1 tab after at least 2 hrs; max = 4 tabs/24 hr PO meloxicam 7.5 mg tablet 7.5 mg PO DAILY 90 Days Qty: 90 0RF omeprazole 20 mg capsule,delayed release(DR/EC) 20 mg PO DAILY Qty: 90 2RF doxycycline monohydrate 100 mg capsule 100 mg PO BID Qty: 14 0RF cephalexin 500 mg capsule 500 mg PO Q6H Qty: 28 0RF hydromorphone [Dilaudid] 2 mg tablet 2 mg PO Q6H PRN (Reason: severe pain (scale score 7-10)) Qty: 5 0RF acetaminophen [Tylenol Extra Strength] 500 mg tablet 500 mg PO Q6H PRN (Reason: pain or fever) Qty: 20 0RF naproxen 500 mg tablet 500 mg PO BID PRN (Reason: pain) 10 Days Qty: 20 0RF hyoscyamine sulfate 0.125 mg tablet 0.125 mg PO QID Qty: 7 0RF fluconazole [Diflucan] 150 mg tablet 150 mg PO Q3D Qty: 2 0RF Rx Instructions: may repeat second dose 72 hrs after first dose if symptoms persist doxycycline hyclate 100 mg capsule 100 mg PO BID 7 Days Qty: 14 0RF cefpodoxime 100 mg tablet 100 mg PO Q12H 7 Days Qty: 14 0RF Rx Instructions: must administer with a meal/food clonazepam 1 mg tablet 1 mg PO BID 0RF Rx Instructions: 2 TABS in the AM and 1 Tab in the PM clonidine HCl 0.1 mg tablet 0.1 mg PO BEDTIME 0RF Lantus Solostar U-100 Insulin 100 unit/mL (3 mL) insulin pen 24 unit subcut QAM 0RF quetiapine [Seroquel] 100 mg tablet 400 mg PO BEDTIME 0RF venlafaxine [Effexor XR] 150 mg capsule,extended release 24hr See Rx Instructions PO DAILY 0RF Rx Instructions: 2 capsule PO daily; lidocaine 5 % ointment 1 appl topical BID PRN (Reason: pain) 30 Days Qty: 50 0RF gabapentin 100 mg capsule 100 mg PO BID 30 Days Qty: 60 0RF
[2021-04-26] MEDS: 0.9 % Sodium Chloride 1,000 ML 999 ML IV ×2 (20:33→21:23)
[2021-04-26] MEDS: cephALEXin 500 MG CAPSULE PO (20:39)
[2021-04-26] MEDS: Diphth,Pertus(ACell),Tet Adult 0.5 ML SYRINGE IM (20:40)
[2021-04-26] MEDS: Ketorolac Tromethamine 30 MG/ML VIAL IVPUSH (20:43)
[2021-04-26 21:03] VITALS: BP 116/66; PULSE 79; RESP 16; TEMP 36.6; O2SAT 97
[2021-04-26 21:41] LABS: Glucose, Whole Blood 508 mg/dL (60-115)
== END 2021-04-26 22:16 | disposition home or self-care (01) ==
PROVIDERS: Emergency Provider Emergency Medicine Emergency Medical Services; PCP Internal Medicine
DX: L03.114 Cellulitis of left upper limb (principal); E11.65 Type 2 diabetes mellitus with hyperglycemia; I10 Essential (primary) hypertension; Z91.14 Patient's other noncompliance with medication regimen; Z88.0 Allergy status to penicillin
CPT/HCPCS: 73130; 82947; 90471; 90715; 96361; 96372; 96374; 99284; J1885

== ENCOUNTER 2021-05-12 12:00 | Emergency (ER) | payer MEDICARE, MEDICAID, SELFPAY ==
[2021-05-12 12:09] VITALS: BP 127/81; PULSE 102; RESP 16; TEMP 36.8; O2SAT 94; BMI 35.9
--- NOTE | 2021-05-12 12:16 | ED_ITS ---
HPI - Back Pain/Injury General Chief Complaint: Back Pain/Injury Stated Complaint: Sciatic pain Time Seen by Provider: 05/12/21 12:16 Source: patient Mode of arrival: ambulatory Limitations: no limitations History of Present Illness HPI Narrative: 40 Year old female with history of obesity, diabetes, HTN, HLD, asthma, GERD, and sciatica who presents to the ER with a sciatica flare up for the last 2 days. She reports after she was playing with her son and caught him in the air she has had severe pain in her left lower back radiating down to her left buttock and down her left leg. She states this is similar to her prior sciatica flare ups in the past. She reports the pain radiates into left groin and makes it difficult for her to bend down, get dressed, perform most activities. She denies any numbness, weakness, bladder or bowel incontinence. She had did not fall and has no direct trauma. She has been taking anti-inflammatories with minimal relief. She ran out of her prior Flexeril and is due to see her primary care doctor in about a week or so. MD elicited complaint: back pain Pertinent past history: prior back pain Onset (ago): day(s) (2) Timing: constant Severity: severe Pain scale (0-10): 10 Similar Symptoms Previously: Yes Quality: sharp Location: left lower back Radiation: buttocks, left upper leg and left leg below the knee Exacerbating factors: movement Relieving factors: none Associated symptoms: denies other symptoms Treatments prior to arrival: acetaminophen Work related injury: No Related Data Home Medications Medication Instructions Recorded Confirmed clonazepam 1 mg tablet 1 mg PO BID 12/31/19 06/01/20 clonidine HCl 0.1 mg tablet 0.1 mg PO BEDTIME 12/31/19 06/01/20 insulin glargine 100 unit/mL (3 24 unit SUBCUT QAM ml 12/31/19 06/01/20 mL) subcutaneous pen (Lantus Solostar U-100 Insulin) quetiapine 100 mg tablet (Seroquel) 400 mg PO BEDTIME tab 12/31/19 06/01/20 venlafaxine 150 mg See Rx Instructions PO DAILY 06/01/20 06/01/20 capsule,extended release 24 hr (Effexor XR) Previous Rx's Medication Instructions Recorded metformin 1,000 mg tablet 1,000 mg PO BID #60 tab 12/24/19 cyclobenzaprine 5 mg tablet 5 mg PO TID PRN #20 tab 01/05/20 empagliflozin 25 mg tablet 25 mg PO DAILY #30 tab 05/26/20 (Jardiance) pen needle, diabetic 31 gauge x #50 ea 05/26/2007/02 (BD Ultra-Fine Short Pen Needle) silver sulfadiazine 1 % topical 1 appl TOPICAL DAILY #25 g 05/30/20 cream (Silvadene) sumatriptan succinate 50 mg tablet See Rx Instructions PO .COMPLEX 06/30/20 #10 tab meloxicam 7.5 mg tablet 7.5 mg PO DAILY 90 Days #90 tab 07/20/20 acetaminophen 500 mg tablet 500 mg PO Q6H PRN #20 tab 10/30/20 (Tylenol Extra Strength) naproxen 500 mg tablet 500 mg PO BID PRN 10 Days #20 tab 10/30/20 cephalexin 500 mg capsule 500 mg PO Q6H #28 cap 11/04/20 doxycycline monohydrate 100 mg 100 mg PO BID #14 cap 11/04/20 capsule hydromorphone 2 mg tablet 2 mg PO Q6H PRN #5 tab 11/04/20 (Dilaudid) gabapentin 100 mg capsule 100 mg PO BID 30 Days #60 cap 11/15/20 lidocaine 5 % topical ointment 1 appl TOPICAL BID PRN 30 Days #50 11/15/20 g hyoscyamine sulfate 0.125 mg tablet 0.125 mg PO QID #7 tab 12/05/20 omeprazole 20 mg capsule,delayed 20 mg PO DAILY #90 cap 01/29/21 release cefpodoxime 100 mg tablet 100 mg PO Q12H 7 Days #14 tab 03/10/21 doxycycline hyclate 100 mg capsule 100 mg PO BID 7 Days #14 cap 03/10/21 fluconazole 150 mg tablet 150 mg PO Q3D #2 tab 03/10/21 (Diflucan) cephalexin 500 mg capsule 500 mg PO QID 7 Days #28 cap 04/26/21 doxycycline hyclate 100 mg capsule 100 mg PO BID 7 Days #14 cap 04/26/21 albuterol sulfate 90 mcg/actuation 2 puff INHALATION Q4-6H PRN 30 05/02/21 aerosol inhaler Days #8.5 g cyclobenzaprine 5 mg tablet 5 mg PO TID PRN #10 tab 05/12/21 hydromorphone 2 mg tablet 2 mg PO Q6H PRN #5 tab 05/12/21 (Dilaudid) ibuprofen 800 mg tablet 800 mg PO Q8H PRN #10 tab 05/12/21 Allergies Allergy/AdvReac Type Severity Reaction Status Date / Time morphine [MORPHINE] Allergy Intermediate NAUSEA, Verified 12/05/20 16:49 rash oxycodone [From PERCOCET] Allergy Intermediate ITCHY, rash Verified 12/05/20 16:49 penicillin V Allergy Intermediate hives Verified 12/05/20 16:49 simvastatin Allergy Intermediate rash Verified 12/05/20 16:49 hydrocodone [From VICODIN] Allergy Mild RASH Verified 12/05/20 16:49 amoxicillin [Amoxicillin] Allergy Unknown UNKNOWN Verified 12/05/20 16:49 Review of Systems Review of Systems: Constitutional: No Fever, No Chills Cardiovascular: No Chest Pain, No SOB Gastrointestinal: No Nausea, No Vomiting, No Diarrhea, No abdominal Pain Musculoskeletal: + joint pain, + Myalgias Skin: No Skin Lesions, No rash Neuro: No Weakness, No Numbness, No Dizziness, No Headache Psych: + Anxiety/Panic, No Depression Heme/Lymph: No Bruising, No Lymphadenopathy Endocrine: No Polyuria, No Polydipsia PMFSH Past Medical History Medical History Anxiety and depression Asthma Crohn's disease GERD (gastroesophageal reflux disease) Hypercholesterolemia Hypertension IBS (irritable bowel syndrome) Migraine Obesity (BMI 30-39.9) OCD (obsessive compulsive disorder) Panic disorder PTSD (post-traumatic stress disorder) Seizure disorder Tobacco abuse Type 2 diabetes mellitus with hyperglycemia, with long-term current use of insulin Surgical History H/O arthroscopy H/O bilateral breast reduction surgery History of ankle surgery Previous section Family History Family History Father CVD (cerebrovascular disease) Diabetes Hypertension Mother Depression Chronic mental illness Maternal Grandmother Myocardial infarction CVD (cerebrovascular disease) Breast cancer Maternal Aunt Liver cancer Social History Social History (Reviewed 03/10/21 @ 16:44 by RAGHU Martin Housing: Apartment Alcohol intake: never Patient Tobacco Use Status: Current everyday Tobacco user Tobacco use type: Cigarette Cigarettes Per Day: 6 Substance Use Type: Marijuana Advance Directives: No Advance Directives Information Provided: No Patient : No Current occupational status: disabled Current occupation: left handed Physical Exam Vital Signs: Vital Signs: Last Vital Signs Temp 98.3 F 05/12/21 12:09 Pulse 102 H 05/12/21 12:09 Resp 16 05/12/21 12:09 BP 127/81 05/12/21 12:09 Pulse Ox 94 05/12/21 12:09 BMI result Body Mass Index 35.9 Appearance: Alert. Oriented X3. No acute distress. HEENT: normal inspection CVS: Normal heart rate and rhythm. Pulses normal. Respiratory: No respiratory distress. Skin: Skin warm and dry. Normal skin color. Normal skin turgor. No rashes. Back: Left low lumbar area with soft tissue tenderness, tenderness of the SI joint. Limited range of motion due to pain. Extremities: Normal inspection lower extremities, normal range of motion. Pain with movement of the left lower extremity. Positive straight leg test. Neuro: Oriented X 3. No motor deficit. No sensory deficit. Ambulates with a slow but steady gait. Course Course Course Narrative: 40 y/o female presenting to the ER with sciatica flare up. She has no red flag symptoms of LBP. She reports the pain is severe and limiting her ability to perform ADLs. She states dilaudid is the only thing that can control her pain and help the flare. [employer] reviewed, no narcotics prescribed since Oct 2020. Exam is consistent with sciatica and she appears very uncomfortable. She follows with Dr. Villarreal. We discussed the importance of close outpatient follow up and she agrees. Will give very short course of PO dilaudid to get her through the weekend until she can see Dr. Villarreal. patient agrees with plan, stable for d/c home. Critical Care Time Critical Care Time Critical Care Time: No Discharge Plan Discharge Clinical Impression: Sciatica Patient Disposition: Home, Self-Care Instructions: Sciatica (ED), Lower Back Exercises (ED) Additional Instructions: No bending, lifting or twisting. Use ice several times per day for 20 minutes at a time for the next 48 hours and then change to heat. Take medications as prescribed to help with pain and discomfort. Follow up with your Primary Care Doctor this week. If your pain worsens, if you develop new numbness, tingling, weakness, loss of function or incontinence call 911 or come back to the ER right away for evaluation. Prescriptions: New hydromorphone [Dilaudid] 2 mg tablet 2 mg PO Q6H PRN (Reason: pain (scale score 7-10)) Qty: 5 0RF ibuprofen 800 mg tablet 800 mg PO Q8H PRN (Reason: pain) Qty: 10 0RF cyclobenzaprine 5 mg tablet 5 mg PO TID PRN (Reason: muscle spasm) Qty: 10 0RF No Action metformin 1,000 mg tablet 1,000 mg PO BID Qty: 60 0RF cyclobenzaprine 5 mg tablet 5 mg PO TID PRN (Reason: muscle spasm) Qty: 20 0RF Jardiance 25 mg tablet 25 mg PO DAILY Qty: 30 3RF (DME) pen needle, diabetic [BD Ultra-Fine Short Pen Needle] 31 gauge x 5/16 needle See Rx Instructions .ROUTE .MEDSUPPLY Qty: 50 5RF Rx Instructions: As directed daily with insulin pen silver sulfadiazine [Silvadene] 1 % cream 1 appl topical DAILY Qty: 25 0RF Rx Instructions: apply a 1.5 mm thickness sumatriptan succinate 50 mg tablet See Rx Instructions PO .COMPLEX Qty: 10 1RF Rx Instructions: take 1 tab at onset of headache; if no relief may repeat 1 tab after at least 2 hrs; max = 4 tabs/24 hr PO meloxicam 7.5 mg tablet 7.5 mg PO DAILY 90 Days Qty: 90 0RF omeprazole 20 mg capsule,delayed release(DR/EC) 20 mg PO DAILY Qty: 90 2RF albuterol sulfate 90 mcg/actuation HFA aerosol inhaler 2 puff inhalation Q4-6H PRN (Reason: for muscle spasm) 30 Days Qty: 8.5 0RF doxycycline monohydrate 100 mg capsule 100 mg PO BID Qty: 14 0RF cephalexin 500 mg capsule 500 mg PO Q6H Qty: 28 0RF hydromorphone [Dilaudid] 2 mg tablet 2 mg PO Q6H PRN (Reason: severe pain (scale score 7-10)) Qty: 5 0RF acetaminophen [Tylenol Extra Strength] 500 mg tablet 500 mg PO Q6H PRN (Reason: pain or fever) Qty: 20 0RF naproxen 500 mg tablet 500 mg PO BID PRN (Reason: pain) 10 Days Qty: 20 0RF hyoscyamine sulfate 0.125 mg tablet 0.125 mg PO QID Qty: 7 0RF fluconazole [Diflucan] 150 mg tablet 150 mg PO Q3D Qty: 2 0RF Rx Instructions: may repeat second dose 72 hrs after first dose if symptoms persist doxycycline hyclate 100 mg capsule 100 mg PO BID 7 Days Qty: 14 0RF cefpodoxime 100 mg tablet 100 mg PO Q12H 7 Days Qty: 14 0RF Rx Instructions: must administer with a meal/food cephalexin 500 mg capsule 500 mg PO QID 7 Days Qty: 28 0RF doxycycline hyclate 100 mg capsule 100 mg PO BID 7 Days Qty: 14 0RF clonazepam 1 mg tablet 1 mg PO BID 0RF Rx Instructions: 2 TABS in the AM and 1 Tab in the PM clonidine HCl 0.1 mg tablet 0.1 mg PO BEDTIME 0RF Lantus Solostar U-100 Insulin 100 unit/mL (3 mL) insulin pen 24 unit subcut QAM 0RF quetiapine [Seroquel] 100 mg tablet 400 mg PO BEDTIME 0RF venlafaxine [Effexor XR] 150 mg capsule,extended release 24hr See Rx Instructions PO DAILY 0RF Rx Instructions: 2 capsule PO daily; lidocaine 5 % ointment 1 appl topical BID PRN (Reason: pain) 30 Days Qty: 50 0RF gabapentin 100 mg capsule 100 mg PO BID 30 Days Qty: 60 0RF Interventions: ED Discharge Assessment Last Done: 05/12/21 12:56 Discharge Date/Time: 05/12/21 12:57
[2021-05-12] MEDS: HYDROmorphone HCl 2 MG TABLET PO (12:44)
[2021-05-12] MEDS: Ketorolac Tromethamine 30 MG/ML VIAL IM (12:45)
== END 2021-05-12 12:57 | disposition home or self-care (01) ==
PROVIDERS: Emergency Provider Emergency Medicine; PCP Internal Medicine
DX: M54.42 Lumbago with sciatica, left side (principal); I10 Essential (primary) hypertension; E11.9 Type 2 diabetes mellitus without complications; F17.200 Nicotine dependence, unspecified, uncomplicated
CPT/HCPCS: 96372; 99284; J1885

== ENCOUNTER 2021-06-23 18:49 | Emergency (ER) | payer MEDICARE, MEDICAID, SELFPAY ==
--- NOTE | ~2021-06-23 | CT_ITS ---
EXAMINATION: CT ABDOMEN AND PELVIS WITHOUT AND WITH CONTRAST CLINICAL INFORMATION: GI bleeding. COMPARISON: Previous including 03/05/2021. TECHNIQUE: Contiguous axial thin section helical images of the abdomen and pelvis were performed following the administration of oral contrast and 100 mL of intravenous Omnipaque 300. The data set was reformatted in the coronal and sagittal planes and reviewed on an independent workstation. Multiphase imaging postcontrast using GI bleeding protocol. This CT examination was performed using dose optimization techniques as appropriate, variously including the following: *Automated exposure control *Adjustment of mA and/or kV according to patient size (this includes techniques or standardized protocols for targeted exams where dose is matched to indication/reason for exam; i.e. extremities or head) *Use of iterative reconstruction technique DLP: 515 mGy-cm FINDINGS: LUNG BASES: No focal parenchymal or pleural disease. No pericardial effusion. LIVER, GALLBLADDER, BILIARY TREE: Within normal limits. No focal lesion. PANCREAS: No mass or inflammatory changes. SPLEEN: Incidental splenule. ADRENAL GLANDS AND KIDNEYS: No focal lesion. No mass, calculus or hydronephrosis. PELVIS: There is normal. There is a 4.8 cm right ovarian cystic lesion which warrants elective ultrasound. This is new since baseline.. URETERS AND BLADDER: Within normal limits. GI TRACT: Evidence for any active GI bleeding. Diverticulosis without acute inflammatory changes. Normal appearance of the appendix and stomach. No small bowel or serosal abnormality. No thickening or dilatation. No inflammatory changes. LYMPHOVASCULAR STRUCTURES: No pathologic enlargement. BONES: No lytic or sclerotic lesions. No fracture. CT/CT gi bleed abd pel wo/w con IMPRESSION: 1. No evidence of any active GI bleeding. Diverticulosis without acute inflammatory changes. 2. Right ovarian cystic lesion which warrants elective ultrasound.
[2021-06-23 19:27] VITALS: BP 162/76; PULSE 92; RESP 18; TEMP 36.6; O2SAT 96; BMI 34.9
[2021-06-23 19:40] LABS: MANUAL DIFF FLAG NO
[2021-06-23 19:42] LABS: Basophils Absolute Auto 0.1 X10*3/uL (0.0-0.2); Basophils Percent Auto 0.3 % (0-2); Eosinophils Absolute Auto 0.2 X10*3/uL (0.0-0.4); Eosinophils Percent Auto 1.2 % (0-4); Hemoglobin 14.4 g/dl (12.0-16.0); Imm Gran Abs Auto 0.08 X10*3/uL (0.00-0.03); Imm Gran Pct Auto 0.5 % (0.0-0.4); Lymphocytes Absolute Auto 4.4 X10*3/uL (1.2-4.9); Lymphocytes Percent Auto 30.2 % (20-40); Mean Corpuscular HGB Conc 32.7 g/dl (31.0-35.0); Mean Corpuscular Hemoglobin 29.8 pg (27.0-33.0); Mean Corpuscular Volume 91.1 fL (80.0-98.0); Mean Platelet Volume 11.1 fL (9.4-12.3); Monocytes Percent Auto 7.1 % (2-11); Neutrophils Absolute Auto 8.8 x10*3/uL (2.0-8.3); Neutrophils Percent Auto 60.7 % (45-73); Platelet Count 246 X10*3/uL (160-400); Red Blood Count 4.83 X10*6/uL (4.20-5.50); Red Cell Distribution Width 12.8 % (11.0-16.0); White Blood Count 14.6 X10*3/uL (4.8-10.8)
[2021-06-23 20:04] LABS: Anion Gap 17 (12-20); Blood Urea Nitrogen 11 mg/dL (9-16); Calcium 9.5 mg/dL (8.4-10.2); Carbon Dioxide 23 mmol/L (22-29); Chloride 100 mmol/L (96-108); Creatinine Clr Calc Pharmacy 85.9; Estimated Glomerular Filt Rate > 60; Glucose Random 372 mg/dL (60-115); Potassium 4.7 mmol/L (3.3-5.1); Sodium 135 mmol/L (135-145)
--- NOTE | 2021-06-23 22:11 | ED.ABDPAIN ---
HPI - Abdominal Pain General Chief Complaint: Abdominal Pain Stated Complaint: blood in stool, cramps Time Seen by Provider: 06/23/21 21:36 Source: patient Mode of arrival: ambulatory Limitations: no limitations History of Present Illness HPI narrative: 40-year-old female who presents emergency department for evaluation of lower abdominal pain and bloody stools. Patient states this morning she developed lower abdominal pain. She runs her hand across her lower abdomen when asked to localize the pain. She states the pain is an intermittent cramping sensation which is 9/10 at its worst. The pain is associated with nausea but no vomiting. She states that at 16:00 hours she had a large dark, red, bloody stool. She states that she had 2 more large, dark, red, bloody stools at 18:00 hours and at 20:00 hours. The patient has a history of Crohn's disease and she states that usually when she has a flare-up she has diarrhea but has not experienced bloody stools in the past. She states that her last Crohn's flare-up was 1 year prior and her last colonoscopy may have been 1 year prior as well. She denied fever but she did have chills. She states that she has had rhinorrhea and a cough but the cough is chronic and she attributes this to smoking. She also states she feels short of breath but again she attributes this to her smoking and to her asthma. She denied frequency, urgency or dysuria. MD elicited complaint: abdominal pain Pertinent past history: other (Crohn's disease) Onset (ago): day(s) (1) Pain Consistency: intermittent Location: RLQ, LLQ and suprapubic Severity: severe Pain scale (0-10): 9 Quality: cramping Radiation: none Migration to: no migration Exacerbating factors: nothing Relieving factors: nothing Associated symptoms: nausea, chills and hematochezia Related Data Home Medications Medication Instructions Recorded Confirmed clonazepam 1 mg tablet 1 mg PO BID 12/31/19 06/06/21 quetiapine 100 mg tablet (Seroquel) 400 mg PO BEDTIME tab 12/31/19 06/06/21 venlafaxine 150 mg See Rx Instructions PO DAILY 06/01/20 06/06/21 capsule,extended release 24 hr (Effexor XR) clonidine HCl 0.2 mg tablet mg PO 06/06/21 06/06/21 quetiapine 400 mg tablet mg PO 06/06/21 06/06/21 Previous Rx's Medication Instructions Recorded pen needle, diabetic 31 gauge x #50 ea 05/26/2007/02 (BD Ultra-Fine Short Pen Needle) sumatriptan succinate 50 mg tablet See Rx Instructions PO .COMPLEX 06/30/20 #10 tab hyoscyamine sulfate 0.125 mg tablet 0.125 mg PO QID #7 tab 12/05/20 omeprazole 20 mg capsule,delayed 20 mg PO DAILY #90 cap 01/29/21 release fluconazole 150 mg tablet 150 mg PO Q3D #2 tab 03/10/21 (Diflucan) ibuprofen 800 mg tablet 800 mg PO Q8H PRN #10 tab 05/12/21 flash glucose scanning reader #1 ea 05/31/21 (FreeStyle Clare 14 Day [place]) flash glucose sensor (FreeStyle #6 kit 05/31/21 Clare 14 Day Sensor) empagliflozin 25 mg tablet 25 mg PO DAILY #90 tab 06/04/21 (Jardiance) albuterol sulfate 90 mcg/actuation 2 puff INHALATION Q4-6H PRN 30 06/06/21 aerosol inhaler Days #8.5 g insulin glargine 100 unit/mL (3 24 unit (0.24 mL) SUBCUT QAM #15 ml 06/06/21 mL) subcutaneous pen (Lantus Solostar U-100 Insulin) simethicone 80 mg chewable tablet 80 mg PO TID-QID PRN #30 tab 06/06/21 (Gas Relief (simethicone)) gabapentin 100 mg capsule 100 mg PO BID 30 Days #180 cap 06/15/21 meloxicam 7.5 mg tablet 7.5 mg PO DAILY 90 Days #90 tab 06/15/21 hydromorphone 2 mg tablet 2 mg PO Q4-6H PRN #10 tab 06/24/21 ondansetron 4 mg disintegrating 4 mg PO Q6-8H PRN #14 tab 06/24/21 tablet Allergies Allergy/AdvReac Type Severity Reaction Status Date / Time morphine [MORPHINE] Allergy Intermediate NAUSEA, Verified 06/23/21 19:27 rash oxycodone [From PERCOCET] Allergy Intermediate ITCHY, rash Verified 06/23/21 19:27 penicillin V Allergy Intermediate hives Verified 06/23/21 19:27 simvastatin Allergy Intermediate rash Verified 06/23/21 19:27 hydrocodone [From VICODIN] Allergy Mild RASH Verified 06/23/21 19:27 amoxicillin [Amoxicillin] Allergy Unknown UNKNOWN Verified 06/23/21 19:27 Review of Systems Review of Systems Yes all other systems are reviewed and are negative [facility] Past Medical History [facility] Narrative: Social history: The patient smokes 7 cigarettes per day times 10 years. She denies alcohol use. She smokes 1-2 joints marijuana daily. Medical History Anxiety and depression Asthma Crohn's disease GERD (gastroesophageal reflux disease) Hypercholesterolemia Hypertension IBS (irritable bowel syndrome) Migraine Obesity (BMI 30-39.9) OCD (obsessive compulsive disorder) Panic disorder PTSD (post-traumatic stress disorder) Seizure disorder Tobacco abuse Type 2 diabetes mellitus with hyperglycemia, with long-term current use of insulin Surgical History H/O arthroscopy H/O bilateral breast reduction surgery History of ankle surgery Previous section Family History Family History Father CVD (cerebrovascular disease) Diabetes Hypertension Mother Depression Chronic mental illness Maternal Grandmother Myocardial infarction CVD (cerebrovascular disease) Breast cancer Maternal Aunt Liver cancer Social History Social History Housing: Apartment Alcohol intake: never Patient Tobacco Use Status: Current everyday Tobacco user Tobacco use type: Cigarette Cigarettes Per Day: 6 e-Cigarette/Vaping Use: Never Used Substance Use Type: Marijuana Advance Directives: No Advance Directives Information Provided: No Patient : No service: No Current occupational status: disabled Current occupation: left handed Cognitive needs: Yes Hearing needs: No Vision needs: Yes Physical Exam ED Vital Signs: Vital Signs - 24 hr 06/23/21 19:27 Temperature 98 F Pulse Rate 92 Respiratory Rate 18 Blood Pressure 162/76 H Pulse Oximetry 96 BMI result Body Mass Index 34.9 Const General: cooperative and no acute distress Orientation/consciousness: oriented to person and oriented to place Limitations: no limitations HENMT Head: Yes normal to inspection, Yes normocephalic and Yes atraumatic Ears: external ears normal General nose exam: Normal external nose present Face and sinus: Yes normal facial exam Mouth: Normal oral and palatal mucosa present Throat: Yes posterior oropharynx normal Eyes General: appearance normal, both eyes and all related structures Pupils: Equal, round and reactive pupils present Neck Neck: Yes normal visual inspection, Yes no lymphadenopathy, Yes trachea midline and Yes supple Chest Chest palpation & inspection: normal inspection of the chest and normal palpation of entire chest wall Resp Effort & Inspection: normal respiratory effort and able to speak in complete sentences Auscultation: clear to auscultation bilaterally Cardio Rate: regular rate Rhythm: regular rhythm Heart sounds: S1 normal heart sound present, S2 normal heart sound present and no murmurs GI Inspection: Yes normal to inspection and Yes obesity Palpation (GI): Soft to palpation, Tenderness to palpation present (GI) in the LLQ (Moderate), in the RLQ (Moderate) and suprapubicly (Moderate) and no guarding Auscultation: normal bowel sounds General: Yes no CVA tenderness Back/Spine/Pelvis Back: no CVA tenderness Skin General skin exam: no rashes or lesions noted Neuro General: oriented to person and oriented to place Cranial nerves: Yes CN's II-XII intact bilaterally and Yes Equal, round and reactive pupils present Cognition (Neuro): normal cognition Motor exam (neuro): 5/5 motor strength present throughout Extrem General: Yes normal to inspection Psych Appearance: grossly normal Speech and movement: Normal speech and movement present Affect: normal affect Attitude: cooperative Thought process: Normal thought process present Thought content: Normal thought content present Course Course Course Narrative: 40-year-old female with history of Crohn's disease who presents emergency department for evaluation of lower abdominal pain which began this morning and 3, large, dark, bloody stools that occurred at 1600, 18 120 100 hours today. The patient states that usually with her Crohn's flare-up she has diarrhea and has not had bloody stools in the past. She has associated nausea with no vomiting. Vital signs revealed an elevated blood pressure of 162/76. Physical examination did reveal lower abdominal pain. Rectal exam revealed no stool in the rectum and the globe was Hemoccult negative. Laboratory evaluation was ordered. Patient's pain was treated with Dilaudid 1 mg IV, Zofran 4 mg IV. She was also ordered to get normal saline x1 L. I will obtain a CT of the abdomen GI bleed protocol as well. 0106: Laboratory evaluation: WBC was elevated 14,600, this appears to be chronic. H&H at 19:36 hours was normal at 14 and 44. Repeat H&H at 23:45 hours was 13.9 and 42.3 which is unchanged. Comprehensive metabolic panel revealed elevated glucose 372, elevated lipase at 98. Radiology evaluation: Radiologist interpretation as follows: 1. No evidence of any active GI bleeding. Diverticulosis without acute inflammatory changes. 2. Right ovarian cystic lesion which warrants elective ultrasound. The patient did require 3 doses of Dilaudid 1 mg IV with improvement of her pain. Patient had improvement of her nausea with IV Zofran. At this time, I do not have a clear etiology for the patient's symptoms, I think the patient is stable and can be discharged home. Patient was prescribed Zofran for her nausea and vomiting. She was advised to take Tylenol for pain and for pain not relieved by Tylenol she was given Dilaudid. She was advised to contact her PCP for follow-up and for referral to GI. She also had outpatient ultrasound to further evaluate her ovarian cyst as per the radiologist. MDM - Abdominal Pain Lab Data Result diagrams: 06/23/21 23:45 06/23/21 19:36 Labs: Lab Results 06/23/21 06/23/21 06/23/21 Range/Units 19:36 19:36 23:45 WBC 14.6 H (4.8-10.8) X10*3/uL RBC 4.83 (4.20-5.50) X10*6/uL Hgb 14.4 13.9 (12.0-16.0) g/dl Hct 44.0 42.3 (37.0-47.0) % MCV 91.1 (80.0-98.0) fL MCH 29.8 (27.0-33.0) pg MCHC 32.7 (31.0-35.0) g/dl RDW 12.8 (11.0-16.0) % Plt Count 246 (160-400) X10*3/uL MPV 11.1 (9.4-12.3) fL Immature Gran % (Auto) 0.5 H (0.0-0.4) % Neut % (Auto) 60.7 (45-73) % Lymph % (Auto) 30.2 (20-40) % [place] % (Auto) 7.1 (2-11) % Eos % (Auto) 1.2 (0-4) % Baso % (Auto) 0.3 (0-2) % Lymph # (Auto) 4.4 (1.2-4.9) X10*3/uL [place] # (Auto) 1.0 (0.1-1.2) X10*3/uL Eos # (Auto) 0.2 (0.0-0.4) X10*3/uL Baso # (Auto) 0.1 (0.0-0.2) X10*3/uL Abs Immat Gran (auto) 0.08 H (0.00-0.03) X10*3/uL Absolute Neuts (auto) 8.8 H (2.0-8.3) x10*3/uL Absolute Nucleated RBC 0.000 (0.0-0.012) X10*3/uL Nucleated RBC % (auto) 0.0 (0.0-0.2) /100WBC Sodium 135 (135-145) mmol/L Potassium 4.7 (3.3-5.1) mmol/L Chloride 100 (96-108) mmol/L Carbon Dioxide 23 (22-29) mmol/L Anion Gap 17 (12-20) BUN 11 D (9-16) mg/dL Creatinine 0.83 (0.5-1.4) mg/dL Estim Creat Clear Calc 85.9 Estimated GFR > 60 Random Glucose 372 H* (60-115) mg/dL Calcium 9.5 D (8.4-10.2) mg/dL Total Bilirubin 0.2 (0.0-1.0) mg/dL Direct Bilirubin < 0.2 (0.0-0.5) mg/dL AST 18 (5-31) U/L ALT 18 (0-31) U/L Alkaline Phosphatase 77 (39-117) U/L Total Protein 7.7 (6.5-8.0) g/dL Albumin 4.0 (3.5-5.0) g/dL Lipase 98 H (8-78) U/L Beta HCG, Quant < 2 mIU/mL Discharge Plan Discharge Clinical Impression: Hematochezia, Diverticulosis Abdominal pain Qualifiers: Abdominal location: unspecified location Qualified Code(s): R10.9 - Unspecified abdominal pain Ovarian cyst Qualifiers: Laterality: right Qualified Code(s): N83.201 - Unspecified ovarian cyst, right side Patient Disposition: Home, Self-Care Instructions: Ovarian Cyst (ED), Rectal Bleeding (ED) Additional Instructions: Your blood work did reveal an elevated white blood cell count but you had similar elevations in your white blood cell count in the past. Your red blood cells were normal, this was repeated 4 hours after your in the emergency department and was unchanged suggesting that you do not have continued significant bleeding. The CT scan of your abdomen pelvis did not reveal a clear cause for your abdominal pain or clear source for your bleeding. This is reassuring. There were [address] incidental findings on your CT scan that are not the cause of your pain. You have diverticulosis but no evidence for diverticulitis (infection). You have a 4.8 cm right ovarian cyst. The radiologist is recommending that you follow-up with your primary care doctor to get an ultrasound as an outpatient to further evaluate this ovarian cyst. Take Zofran ODT 4 mg pills, 1 pill dissolved in your mouth every 8 hours as needed for nausea and vomiting. Take ibuprofen 200 mg pills, 3 pills every 6 hours as needed for pain.Take Tylenol (acetaminophen) 500 mg pills, 2 pills every 4-6 hours as needed for pain. For pain not relieved by Tylenol take Dilaudid (hydromorphone) 2 mg pills, 1 pill every 4 hours as needed for pain. Do not drive or work while taking this medication since they can cause sleepiness. Dilaudid (hydromorphone) is a narcotic medication that can be addicting. If you are concerned about addiction you can ask the pharmacist for less pills or do not get this prescription filled. Follow-up with your doctor in 2 days. Please return to the emergency department if your symptoms get worse or if you develop any symptoms that are concerning to you. Prescriptions: New hydromorphone 2 mg tablet 2 mg PO Q4-6H PRN (Reason: pain) Qty: 10 0RF Rx Instructions: Patient may request partial refill ondansetron 4 mg tablet,disintegrating 4 mg PO Q6-8H PRN (Reason: nausea and vomiting) Qty: 14 0RF No Action (DME) pen needle, diabetic [BD Ultra-Fine Short Pen Needle] 31 gauge x 5/16 needle See Rx Instructions .ROUTE .MEDSUPPLY Qty: 50 5RF Rx Instructions: As directed daily with insulin pen sumatriptan succinate 50 mg tablet See Rx Instructions PO .COMPLEX Qty: 10 1RF Rx Instructions: take 1 tab at onset of headache; if no relief may repeat 1 tab after at least 2 hrs; max = 4 tabs/24 hr PO omeprazole 20 mg capsule,delayed release(DR/EC) 20 mg PO DAILY Qty: 90 2RF (DME) FreeStyle Clare 14 Day Sensor Kit See Rx Instructions .ROUTE .MEDSUPPLY Qty: 6 3RF Rx Instructions: As directed (DME) FreeStyle Clare 14 Day [place] Misc See Rx Instructions .ROUTE .MEDSUPPLY Qty: 1 0RF Rx Instructions: As directed Jardiance 25 mg tablet 25 mg PO DAILY Qty: 90 3RF Lantus Solostar U-100 Insulin 100 unit/mL (3 mL) insulin pen 24 unit subcut QAM Qty: 15 12RF gabapentin 100 mg capsule 100 mg PO BID 30 Days Qty: 180 0RF meloxicam 7.5 mg tablet 7.5 mg PO DAILY 90 Days Qty: 90 0RF hyoscyamine sulfate 0.125 mg tablet 0.125 mg PO QID Qty: 7 0RF fluconazole [Diflucan] 150 mg tablet 150 mg PO Q3D Qty: 2 0RF Rx Instructions: may repeat second dose 72 hrs after first dose if symptoms persist ibuprofen 800 mg tablet 800 mg PO Q8H PRN (Reason: pain) Qty: 10 0RF clonazepam 1 mg tablet 1 mg PO BID 0RF Rx Instructions: 2 TABS in the AM and 1 Tab in the PM quetiapine [Seroquel] 100 mg tablet 400 mg PO BEDTIME 0RF venlafaxine [Effexor XR] 150 mg capsule,extended release 24hr See Rx Instructions PO DAILY 0RF Rx Instructions: 2 capsule PO daily; quetiapine 400 mg tablet PO 0RF clonidine HCl 0.2 mg tablet PO 0RF albuterol sulfate 90 mcg/actuation HFA aerosol inhaler 2 puff inhalation Q4-6H PRN (Reason: for muscle spasm) 30 Days Qty: 8.5 0RF simethicone [Gas Relief (simethicone)] 80 mg tablet,chewable 80 mg PO TID-QID PRN (Reason: abdominal distention) Qty: 30 0RF
[2021-06-23] MEDS: ondansetron HCL 4 MG/2 ML VIAL IVPUSH (22:19)
[2021-06-23] MEDS: HYDROmorphone HCl 1 MG/ML SYRINGE IVPUSH ×2 (22:19→23:48)
[2021-06-23 22:20] LABS: Alanine Aminotransferase 18 U/L (0-31); Alkaline Phosphatase 77 U/L (39-117); Aspartate Amino Transferase 18 U/L (5-31); Bilirubin Direct < 0.2 mg/dL (0.0-0.5); Bilirubin Total 0.2 mg/dL (0.0-1.0); Lipase 98 U/L (8-78); Total Protein 7.7 g/dL (6.5-8.0)
[2021-06-23] MEDS: 0.9 % Sodium Chloride 1,000 ML 999 ML IV (22:20)
[2021-06-23 22:52] LABS: HCG Quantitative < 2 mIU/mL
[2021-06-23] MEDS: iohexoL 350 MG/ML 100 ML INFUS..BTL 80 ML IV (23:32)
[2021-06-23 23:50] LABS: Hematocrit 42.3 % (37.0-47.0); Hemoglobin 13.9 g/dl (12.0-16.0)
[2021-06-24] MEDS: HYDROmorphone HCl 1 MG/ML SYRINGE IVPUSH (01:17)
== END 2021-06-24 01:28 | disposition home or self-care (01) ==
PROVIDERS: Emergency Provider Emergency Medicine Emergency Medical Services; PCP Internal Medicine
DX: K92.1 Melena (principal); R10.30 Lower abdominal pain, unspecified; K57.90 Diverticulosis of intestine, part unspecified, without perforation or abscess without bleeding; N83.201 Unspecified ovarian cyst, right side; K50.90 Crohn's disease, unspecified, without complications; I10 Essential (primary) hypertension; E11.9 Type 2 diabetes mellitus without complications; J45.909 Unspecified asthma, uncomplicated; F17.210 Nicotine dependence, cigarettes, uncomplicated
CPT/HCPCS: 36415; 74178; 80048; 80076; 83690; 84702; 85014; 85018; 85025; 96361; 96374; 96375; 96376; 99283; 99284; J1170; J2405; Q9967

== ENCOUNTER 2021-09-12 11:52 | Inpatient (IN) | payer MEDICARE, MEDICAID, SELFPAY ==
[2021-09-12] VITALS (8 sets, daily range): BP systolic 114–167; BP diastolic 75–92; PULSE 81–111; RESP 16–19; TEMP 36.7–37.1; O2SAT 96–100; BMI 38.9
--- NOTE | 2021-09-12 | ECG_ITS ---
Test Reason : ?STROKE Blood Pressure : / mmHG Vent. Rate : 093 BPM Atrial Rate : 093 BPM P-R Int : 144 ms QRS Dur : 082 ms QT Int : 372 ms P-R-T Axes : 036 -08 019 degrees QTc Int : 462 ms Normal sinus rhythm Minimal voltage criteria for LVH, may be normal variant ( R in aVL ) Borderline ECG When compared with ECG of 09-FEB-2018 22:52, No significant change was found Referred By: Generic ED Physician Electronically Signed By:ESTER GUSTAFSON
--- NOTE | ~2021-09-12 | CT_ITS ---
EXAMINATION: CT ANGIOGRAM HEAD AND NECK CLINICAL INFORMATION: Positive MRI with right-sided weakness likely and imbalance COMPARISON: Head CT and brain MRI 09/12/2021 TECHNIQUE: Test bolus sequences followed by intravenous administration of 70 mL of Omnipaque 350 intravenous contrast. Helical imaging was performed in the axial plane from the mediastinum to the skull vertex. Delayed postcontrast imaging of the head was also performed. The data was processed at the radiological technologist's workstation for generation of MIP sequences. This CT examination was performed using dose optimization techniques as appropriate, variously including the following: *Automated exposure control *Adjustment of mA and/or kV according to patient size (this includes techniques or standardized protocols for targeted exams where dose is matched to indication/reason for exam; i.e. extremities or head) *Use of iterative reconstruction technique DLP: 1511 mGy-cm FINDINGS: HEAD: No intracranial mass, intercerebral edema, hemorrhage, or midline shift is evident. The ventricles and sulci are normal in size and configuration. No extra-axial collections are appreciated. The paranasal sinuses and mastoid air cells are well aerated and clear. Tongue piercing noted. SOFT TISSUES AND LUNG APICES: Visualized lung apices are clear. Thyroid gland and major salivary glands are unremarkable. No cervical lymphadenopathy by size criteria. No mucosal space mass. Thickening of the posterior nasopharyngeal soft tissues compatible with lymphoid hyperplasia. NECK CTA: Normal caliber aortic arch. Conjoined origin of the innominate and left common carotid arteries. Arch origins are widely patent. Subclavian arteries are patent bilaterally. Vertebral arteries are widely patent bilaterally. Common carotid arteries are widely patent. Carotid bifurcations are widely patent. Minimal punctate calcification at the left carotid bifurcation. No stenosis. Cervical segments of the internal carotid arteries are widely patent. CRANIAL CTA: Posterior circulation: Intradural vertebral arteries are patent. Patent bilateral PICA's and diminutive right AICA. Basilar artery is patent. Patent bilateral SCA's. Suggestion of mild focal narrowing of the proximal left SCA best seen on coronal MIP series 11 image 62. Patent posterior cerebral arteries bilaterally. Patent though diminutive right posterior communicating artery. No definite left posterior communicating artery identified. Anterior circulation: The petrous and cavernous ICA segments are widely patent. Anterior cerebral arteries are patent. Patent anterior communicating artery. No aneurysm. Patent bilateral middle cerebral arteries. No aneurysm. No vascular malformation. Major dural venous sinuses are patent. CT/CT angio head neck IMPRESSION: 1. No hemodynamically significant arterial stenosis, dissection, or vascular cut off identified. 2. Apparent short segment mild focal narrowing of the proximal left superior cerebellar artery. 3. No intracranial aneurysm or vascular malformation.
--- NOTE | ~2021-09-12 | MR_ITS ---
EXAMINATION: MRI BRAIN WITHOUT CONTRAST CLINICAL INFORMATION: Unsteady gait. Question stroke. COMPARISON: Brain MRI 09/12/2021. TECHNIQUE: Multiplanar MR imaging of the brain was performed without contrast. FINDINGS: There are a few scattered nonspecific foci of T2 FLAIR signal hyperintensity within the periventricular white matter. No acute territorial infarct. No pathological magnetic susceptibility artifact. Intracranial vascular flow voids are grossly maintained. There is no intracranial mass effect or midline shift. No abnormal extra-axial collection. Lateral and third ventricles are normal. No hydrocephalus. Midline structures including the cervicomedullary junction are normal. No acute bone marrow signal changes. There is no mastoid middle ear effusion. Minimal mucosal thickening within ethmoid air cells and the left maxillary sinus. Globes and orbits are grossly symmetric. MR/MR head/brain wo con IMPRESSION: Unremarkable brain MRI. No evidence of acute territorial infarct or hemorrhage.
--- NOTE | ~2021-09-12 | FL_ITS ---
EXAMINATION: XR LUMBAR PUNCTURE CLINICAL INFORMATION: Unsteady gait. COMPARISON: None TECHNIQUE: Following explaining fluoroscopy-guided lumbar puncture procedure, benefits and risk, a written consent was obtained. Patient was placed prone on fluoroscopy table and an optimal site was selected along the posterior lower back. The site was marked with a marker. The area marked was cleaned and draped in the usual sterile manner. 1% lidocaine was injected at puncture site. 1% lidocaine was injected subcutaneously. A 20-gauge spinal needle was inserted from the skin intrathecally at the L4-L5 disc level. After removing the stylet observing CSF return patient was quickly placed in left lateral decubitus view and opening CSF pressure was obtained. Subsequently fluid was collected in 4 test tubes and sent to lab as per referring physician's orders. The stylet was reintroduced and needle withdrawn. Complete hemostasis achieved at puncture site. Patient tolerated procedure extremely well. FINDINGS: On the visualized images the vertebral heights and alignment is maintained normal. The opening CSF pressure measures 10 cm of water. Approximately 12 mL of CSF fluid was collected in 4 test tubes. FLUOROSCOPY TIME: 1.3 minutes DOSE AREA PRODUCT: 7.345 uGy-m2 (microgray-meter squared) FL/FL guided lumbar puncture LP IMPRESSION: Successful fluoroscopy-guided lumbar puncture at L4-L5 disc level. Normal opening CSF pressure. Normal appearance of CSF fluid.
--- NOTE | ~2021-09-12 | MR_ITS ---
EXAMINATION: MR CERVICAL SPINE WITHOUT AND WITH CONTRAST CLINICAL INFORMATION: Unsteady gait. COMPARISON: Brain MRI 09/15/2021. TECHNIQUE: Multiplanar MR imaging of the cervical spine was performed without and with contrast. A total of 10 mL Gadavist was utilized for this examination. FINDINGS: Alignment is normal. Vertebral heights are preserved. No acute bone marrow signal changes. There is slight disc desiccation at multiple levels within the lower cervical spine without substantial loss of intervertebral disc height. There is no canal compromise or cord compression. No abnormal intramedullary signal changes. Cervicomedullary junction is normal. Limited visualization of the posterior fossa reveals no abnormal finding. Occipital condyles and lateral C1 masses are intact. The atlantodental joint and both C1-C2 articular facets are unremarkable. There is a shallow central protrusion at C6-C7 causing minimal indentation of the thecal sac. A tiny central extrusion is partially visualized at T4-T5 causing subtle abutment on the upper thoracic cord. Annular contours are otherwise normal at all levels and there is no canal or neuroforaminal compromise. No cord compression or abnormal intramedullary signal changes. Postcontrast images reveal no abnormal intradural enhancement. Soft tissues of the neck are normal. Vascular flow voids are grossly maintained. MR/MR cervical spine wo/w con IMPRESSION: There is a small central protrusion at C6-C7 and a tiny central extrusion partially visualized at T4-T5. Otherwise unremarkable examination. No canal or neuroforaminal compromise. No cord compression or abnormal intramedullary signal changes.
--- NOTE | ~2021-09-12 | CT_ITS ---
EXAMINATION: CT HEAD WITHOUT CONTRAST CLINICAL INFORMATION: Right-sided weakness, numbness since Friday. COMPARISON: 08/13/[address] scan. TECHNIQUE: Contiguous axial imaging was performed from the skull base to vertex without intravenous administration of contrast. Coronal and sagittal reformatted images were obtained. This CT examination was performed using dose optimization techniques as appropriate, variously including the following: *Automated exposure control *Adjustment of mA and/or kV according to patient size (this includes techniques or standardized protocols for targeted exams where dose is matched to indication/reason for exam; i.e. extremities or head) *Use of iterative reconstruction technique DLP: 634 mGy-cm FINDINGS: There is no evidence of acute intracranial hemorrhage or territorial infarction. No abnormal mass effect or midline shift is seen. Alejandre to white matter differentiation is well preserved. No extra-axial fluid collections are identified. The ventricles are normal in size. There is no abnormal attenuation within the brain parenchyma. The osseous structures and soft tissues are normal. The mastoid air cells and visualized portions of the paranasal sinuses are well aerated. Mild anterior nasal septal deviation, apex the right. CT/CT head/brain wo con IMPRESSION: No acute intracranial pathology.
--- NOTE | ~2021-09-12 | MR_ITS ---
EXAMINATION: MR BRAIN WITHOUT CONTRAST CLINICAL INFORMATION: Right arm and leg weakness. Unsteady gait. Pronator drift. COMPARISON: CT head from 09/12/2021. TECHNIQUE: MRI of the brain was obtained using routine sequences without contrast. FINDINGS: Potential punctate focus of restricted diffusion within the right cerebellar tonsil. No additional restricted diffusion. No evidence of acute or chronic hemorrhagic products on heme-sensitive imaging. Nonspecific few scattered periventricular and deep white matter T2 FLAIR hyperintensities. The ventricles are normal in morphology and size. No abnormal mass effect. No midline shift. Normal appearance of the pituitary gland. Normal positioning of the cerebellar tonsils. Normal arterial and venous vascular flow voids are present. Normal, homogeneous marrow signal. Mild mucosal thickening of the paranasal sinuses. No signal abnormalities within the mastoids. MR/MR head/brain wo con IMPRESSION: 1. Potential punctate acute infarct of the right cerebellar tonsil. 2. No additional acute intracranial abnormalities. 3. Nonspecific minimal scattered white matter changes.
--- NOTE | ~2021-09-12 | XR_ITS ---
EXAMINATION: XR CHEST CLINICAL INFORMATION: Right-sided weakness COMPARISON: March 05, 2021 and December 05, 2020 TECHNIQUE: AP portable view of the chest was obtained. FINDINGS: No significant abnormality is noted involving the heart, lungs, mediastinum, bony thorax or soft tissues. There is calcific tendinitis of the left shoulder. XR/XR chest 1V IMPRESSION: No acute disease.
[2021-09-12 12:20] LABS: MANUAL DIFF FLAG NO
[2021-09-12 12:21] LABS: Basophils Absolute Auto 0.1 X10*3/uL (0.0-0.2); Basophils Percent Auto 0.4 % (0-2); Eosinophils Absolute Auto 0.2 X10*3/uL (0.0-0.4); Eosinophils Percent Auto 1.5 % (0-4); Hematocrit 41.9 % (37.0-47.0); Hemoglobin 13.6 g/dl (12.0-16.0); Imm Gran Pct Auto 0.8 % (0.0-0.4); Lymphocytes Absolute Auto 3.2 X10*3/uL (1.2-4.9); Lymphocytes Percent Auto 26.4 % (20-40); Mean Corpuscular HGB Conc 32.5 g/dl (31.0-35.0); Mean Corpuscular Hemoglobin 29.6 pg (27.0-33.0); Mean Corpuscular Volume 91.1 fL (80.0-98.0); Mean Platelet Volume 10.6 fL (9.4-12.3); Monocytes Absolute Auto 0.9 X10*3/uL (0.1-1.2); Monocytes Percent Auto 7.6 % (2-11); Neutrophils Absolute Auto 7.6 x10*3/uL (2.0-8.3); Neutrophils Percent Auto 63.3 % (45-73); Platelet Count 221 X10*3/uL (160-400); Red Cell Distribution Width 13.2 % (11.0-16.0)
[2021-09-12 12:47] LABS: Anion Gap 14 (12-20); Blood Urea Nitrogen 5 mg/dL (9-16); Calcium 8.5 mg/dL (8.4-10.2); Carbon Dioxide 22 mmol/L (22-29); Chloride 105 mmol/L (96-108); Creatinine Clr Calc Pharmacy 111.4; Estimated Glomerular Filt Rate > 60; Glucose Random 205 mg/dL (60-115); Sodium 137 mmol/L (135-145)
[2021-09-12 13:32] LABS: Alanine Aminotransferase 30 U/L (0-31); Albumin Level 3.8 g/dL (3.5-5.0); Alkaline Phosphatase 82 U/L (39-117); Aspartate Amino Transferase 39 U/L (5-31); Bilirubin Direct < 0.2 mg/dL (0.0-0.5); Bilirubin Total < 0.2 mg/dL (0.0-1.0); Lipase 61 U/L (8-78); Magnesium 1.6 mg/dL (1.6-2.6); Total Protein 7.4 g/dL (6.5-8.0)
[2021-09-12 13:36] LABS: INTERNATIONAL NORM RATIO 0.8 (0.9-1.1); Prothrombin Time 9.6 SEC (10.0-13.1)
[2021-09-12 13:42] LABS: Troponin-I High Sensitivity < 3.5 ng/L (<3.5-17.0)
[2021-09-12 13:45] LABS: IDNOW Serial# 16C4AD1C
[2021-09-12 13:46] LABS: COVID-19 Test Negative (Negative)
--- NOTE | 2021-09-12 13:59 | ED_ITS ---
HPI - Neuro Symptoms/Deficit General Chief Complaint: Neuro Symptoms/Deficit <VIRI Rao - Last Filed: 09/12/21 16:49> Stated Complaint: Stroke? sent by pcp <VIRI Rao - Last Filed: 09/12/21 16:49> Time Seen by Provider: 09/12/21 12:53 <VIRI Rao - Last Filed: 09/12/21 16:49> Source: patient <VIRI Rao - Last Filed: 09/12/21 16:49> Mode of arrival: ambulatory <VIRI Rao - Last Filed: 09/12/21 16:49> History of Present Illness HPI Narrative: 40-year-old female with a past medical history of anxiety, depression, asthma, Crohn's disease, GERD, HLD, HTN, IBS, migraines, OCD, panic disorder, PT SD, seizures, diabetes, presenting to ED complaining of right eye swelling/twitching, and right arm/leg numbness and weakness since Friday. Was instructed to come to ED by PCP. Also reports CP and SOB since this morning at 4AM. States while trying to walk feels off balance/dizzy and was walking into [place] at home, headache, vision change/loss, cough, you know or edema, nausea, vomiting, dysuria/hematuria. Denies taking anticoagulation. <VIRI Rao - Last Filed: 09/12/21 16:49> Onset (ago): day(s) <VIRI Rao - Last Filed: 09/12/21 16:49> Related Data Home Medications: Home Medications Medication Instructions Recorded Confirmed clonazepam 1 mg tablet 1 mg PO BID 12/31/19 09/12/21 venlafaxine 150 mg 300 mg PO DAILY 06/01/20 09/12/21 capsule,extended release 24 hr (Effexor XR) clonidine HCl 0.2 mg tablet 0.2 mg PO DAILY 08/07/21 09/12/21 insulin glargine 100 unit/mL (3 25 unit subcut QAM 09/12/21 09/12/21 mL) subcutaneous pen (Lantus Solostar U-100 Insulin) meloxicam 7.5 mg tablet (Mobic) 1 tab PO DAILY 09/12/21 09/12/21 quetiapine 100 mg tablet 1 tab PO BEDTIME 09/12/21 09/12/21 quetiapine 400 mg tablet (Seroquel) 1 tab PO BEDTIME 09/12/21 09/12/21 trazodone 50 mg tablet 2 tab PO BEDTIME 09/12/21 09/12/21 Previous Rx's Medication Instructions Recorded pen needle, diabetic 31 gauge x #50 ea 05/26/2007/02 (BD Ultra-Fine Short Pen Needle) omeprazole 20 mg capsule,delayed 20 mg PO DAILY #90 caps 01/29/21 release flash glucose scanning reader #1 ea 05/31/21 (FreeStyle [place] [address] [place] [address] [place]) flash glucose sensor (FreeStyle #6 kits 05/31/21 [place] 14 Day Sensor kit) empagliflozin 25 mg tablet 25 mg PO DAILY #90 tabs 06/04/21 (Jardiance) gabapentin 100 mg capsule 100 mg PO BID 30 days #180 caps 06/15/21 albuterol sulfate 90 mcg/actuation 2 puff inhalation Q6H PRN 08/07/21 aerosol inhaler (ProAir HFA) shortness of breath or wheezing #8.5 grams budesonide-formoterol HFA 160 2 puff inhalation BID #10.2 grams 08/07/21 mcg-4.5 mcg/actuation aerosol inhaler (Symbicort) insulin aspart U-100 100 unit/mL 1 sliding scale dose subcut 08/13/21 (3 mL) subcutaneous pen (Novolog USEASDIRECTD #15 mL Flexpen U-100 Insulin aspart) <VIRI Rao - Last Filed: 09/12/21 16:49> Allergies/Adverse Reactions: Allergies Allergy/AdvReac Type Severity Reaction Status Date / Time morphine [MORPHINE] Allergy Intermediate NAUSEA, Verified 09/12/21 12:01 rash oxycodone [From PERCOCET] Allergy Intermediate ITCHY, rash Verified 09/12/21 12:01 penicillin V Allergy Intermediate hives Verified 09/12/21 12:01 simvastatin Allergy Intermediate rash Verified 09/12/21 12:01 hydrocodone [From VICODIN] Allergy Mild RASH Verified 09/12/21 12:01 amoxicillin [Amoxicillin] Allergy Unknown UNKNOWN Verified 09/12/21 12:01 <VIRI Rao - Last Filed: 09/12/21 16:49> Review of Systems Review of Systems: Constitutional: No Fever, No Chills, No Fatigue, No Malaise ENT/Mouth: No Ear Pain, No Nasal Congestion, No Sinus Pain, No Hoarseness, No sore throat, No Rhinorrhea, No Swallowing Difficulty Eyes: No Eye Pain, + Swelling, No Redness, No Vision Changes Cardiovascular: + Chest Pain, + SOB, No Dyspnea on Exertion, No Orthopnea, No Edema, No Palpitations Respiratory: No Cough, No Sputum, No Dyspnea Gastrointestinal: No Nausea, No Vomiting, No Diarrhea, No Constipation, No Abdominal pain Genitourinary: No irregular bleeding, No Dysuria, No Urinary Frequency, No Hematuria, No Urinary Incontinence/retention, No Flank Pain Musculoskeletal: No joint pain, No Myalgias, No Joint Swelling Skin: No Skin Lesions, No rash Neuro: + Weakness, + Numbness, + Paresthesias, No Loss of Consciousness, + Dizziness, No Headache <VIRI Rao Last Filed: 09/12/21 16:49> Yes all other systems are reviewed and are negative <VIRI Rao - Last Filed: 09/12/21 16:49> Constitutional: Constitutional: Reports as per HPI <VIRI Rao - Last Filed: 09/12/21 16:49> Eyes: Eyes: Reports photophobia <VIRI Rao Last Filed: 09/12/21 16:49> PMFSH Past Medical History Attestation statement: The following information was validated with the patient. <VIRI Rao Last Filed: 09/12/21 16:49> Medical History: Medical History Anxiety and depression Asthma Crohn's disease GERD (gastroesophageal reflux disease) Hypercholesterolemia Hypertension IBS (irritable bowel syndrome) Migraine Obesity (BMI 30-39.9) OCD (obsessive compulsive disorder) Panic disorder PTSD (post-traumatic stress disorder) Seizure disorder Tobacco abuse Type 2 diabetes mellitus with hyperglycemia, with long-term current use of insulin <VIRI Rao Last Filed: 09/12/21 16:49> Surgical History: Surgical History H/O arthroscopy H/O bilateral breast reduction surgery History of ankle surgery Previous section <VIRI aRo - Last Filed: 09/12/21 16:49> Family History Family History: Family History Father CVD (cerebrovascular disease) Diabetes Hypertension Mother Depression Chronic mental illness Maternal Grandmother Myocardial infarction CVD (cerebrovascular disease) Breast cancer Maternal Aunt Liver cancer <VIRI Rao - Last Filed: 09/12/21 16:49> Social History Social History: Social History Housing: Apartment Alcohol intake: never Patient Tobacco Use Status: Current everyday Tobacco user Tobacco use type: Cigarette Cigarettes Per Day: 6 e-Cigarette/Vaping Use: Never Used Use of substances other than those prescribed or required for medical reasons: Yes Substance Use Type: Marijuana Advance Directives: No Advance Directives Information Provided: No Patient : No service: No Current occupational status: disabled Current occupation: left handed Cognitive needs: Yes Hearing needs: No Vision needs: Yes <VIRI Rao - Last Filed: 09/12/21 16:49> Physical Exam Vital Signs: Vital Signs: Last Vital Signs Temp 98.8 F 09/12/21 18:00 Pulse 81 09/12/21 23:40 Resp 18 09/12/21 23:40 BP 114/75 09/12/21 23:40 Pulse Ox 97 09/12/21 23:40 O2 Del Method 09/12/21 23:40 BMI result Body Mass Index 38.9 <VIRI Rao - Last Filed: 09/12/21 16:49> Vital Signs: Last Vital Signs Temp 98.8 F 09/12/21 18:00 Pulse 81 09/12/21 23:40 Resp 18 09/12/21 23:40 BP 114/75 09/12/21 23:40 Pulse Ox 97 09/12/21 23:40 O2 Del Method 09/12/21 23:40 BMI result Body Mass Index 38.9 <VIRI Glass - Last Filed: 09/12/21 19:26> Vital Signs: Last Vital Signs Temp 98.8 F 09/12/21 18:00 Pulse 81 09/12/21 23:40 Resp 18 09/12/21 23:40 BP 114/75 09/12/21 23:40 Pulse Ox 97 09/12/21 23:40 O2 Del Method 09/12/21 23:40 BMI result Body Mass Index 38.9 <Jose Alfredo Patton MD - Last Filed: 09/13/21 01:07> Const: General: cooperative, healthy appearing and no acute distress <VIRI Rao - Last Filed: 09/12/21 16:49> Orientation/consciousness: patient oriented x3 <VIRI Rao - Last Filed: 09/12/21 16:49> Limitations: no limitations <VIRI Rao - Last Filed: 09/12/21 16:49> HEENT: Head: Yes normal to inspection and Yes atraumatic <VIRI Rao - Last Filed: 09/12/21 16:49> Ears: hearing grossly normal bilaterally <VIRI Rao - Last Filed: 09/12/21 16:49> General nose exam: Normal external nose present <VIRI Rao - Last Filed: 09/12/21 16:49> Face and sinus: Yes normal facial exam <VIRI Rao - Last Filed: 09/12/21 16:49> Eyes: Other: + right eye twitching. No appreciable swelling. <VIRI Rao - Last Filed: 09/12/21 16:49> General: appearance normal, both eyes and all related structures <VIRI Rao - Last Filed: 09/12/21 16:49> Eyelids: Yes eyelids normal <VIRI Rao - Last Filed: 09/12/21 16:49> Conjunctivae: conjunctivae normal <VIRI Rao - Last Filed: 09/12/21 16:49> Sclerae: sclerae normal <VIRI Rao - Last Filed: 09/12/21 16:49> Corneas: corneas normal <VIRI Rao - Last Filed: 09/12/21 16:49> Pupils: Equal, round and reactive pupils present <Miriam Interianotedt PA - Last Filed: 09/12/21 16:49> EOM: EOMs intact bilaterally <Miriam Laishatedt PA - Last Filed: 09/12/21 16:49> Direct Ophthalmoscopy: normal light reflex and photophobia <Miriam Laishatedt PA - Last Filed: 09/12/21 16:49> Neck: Neck: Yes normal visual inspection and Yes no meningeal signs <Miriam Poultedt PA - Last Filed: 09/12/21 16:49> Resp: Effort & Inspection: normal respiratory effort and no respiratory distress <Miriam Laishatedt PA - Last Filed: 09/12/21 16:49> Auscultation: clear to auscultation bilaterally, no crackles, no rales, no rhonchi and no wheezes <Miriam Laishatedt PA - Last Filed: 09/12/21 16:49> Cardio: Rate: regular rate <Miriam Interianotedt PA - Last Filed: 09/12/21 16:49> Heart sounds: S1 normal heart sound present and S2 normal heart sound present <Miriam Interianotedt PA - Last Filed: 09/12/21 16:49> GI: Inspection: Yes normal to inspection <Miriam Interianotedt PA - Last Filed: 0 09/12/21 16:49> Palpation (GI): Soft to palpation, Tenderness to palpation present (GI) in the epigastrum, no guarding and not rigid <Miriam Interianobettina PA - Last Filed: 09/12/21 16:49> : General: Yes no CVA tenderness <Miriam Poultedt, PA - Last Filed: 09/12/21 16:49> Back/Spine/Pelvis: Back: no CVA tenderness <Miriam Pouliot, PA - Last Filed: 09/12/21 16:49> Skin: Rashes: no rashes <Miriam Poultedt, PA - Last Filed: 09/12/21 16:49> Wounds: no wounds <Miriam Poultedt, PA - Last Filed: 09/12/21 16:49> Neuro: Other: Slow unsteady gait needing assistance 4/5 RUE and RLE strenght <Miriam Pouliot, PA - Last Filed: 09/12/21 16:49> General: patient oriented x3, tone normal, moves all extremities, no meningeal signs, no focal motor deficits and CN's II-XI intact bilaterally <VIRI Rao - Last Filed: 09/12/21 16:49> Cranial nerves: Yes CN's II-XII intact bilaterally and Yes Equal, round and reactive pupils present <VIRI Rao - Last Filed: 09/12/21 16:49> Cognition (Neuro): normal cognition <VIRI Rao - Last Filed: 09/12/21 16:49> Gait exam (Neuro): not ataxic <VIRI Rao - Last Filed: 09/12/21 16:49> Motor exam (neuro): Pronator motor function present pronator drift of right uppe r extremity <VIRI Rao - Last Filed: 09/12/21 16:49> Coordination: [id number] test normal <VIRI Rao Last Filed: 09/12/21 16:49> Romberg Test: Positive <VIRI Rao - Last Filed: 09/12/21 16:49> Extrem: General: Yes normal to inspection <VIRI Roa - Last Filed: 09/12/21 16:49> Course Course Course Narrative: -1540--mild leukocytosis of 12.0 which appears chronic. Chronically low BUN. Labs otherwise unremarkable. AST mildly elevated -tox screen positive for barbiturates and THC. XR chest 1V IMPRESSION: No acute disease. CT head/brain wo con IMPRESSION: No acute intracranial pathology. > case discussed with Dr. Patton, will obtain MRI -on my re-evaluation patient is sleeping comfortably -UA negative -1800-- ED care transferred to VIRI Christiansen pending MRI and dispo per results <VIRI Rao - Last Filed: 09/12/21 16:49> Reevaluation(s) Reevaluation #1: I evaluated the patient myself, patient tells me that she feels like the symptoms started Friday however worsened starting yesterday she notes that she had significant weakness starting yesterday, tells me she was walking into [place]. Patient is currently wearing sunglasses she tells me she has a history of significant migraines, she receives Botox for migraines, and she tells me she is having photophobia however this is normal for her. I had her take be sunglasses off and it appears as though her right eye is droopy, she is having difficulty keeping it open. She also has slight ataxia to the right upper extremity with [id number], positive pronator drift on the right and noted weakness on the right side upper and lower extremities. I ordered a CTA of head and neck. I also spoke to Neurology Dr. Almeida that recommended aspirin 81 mg p.o. now. They will follow this patient. No other recommendations at this time. Plan for hospital admission <VIRI Glass - Last Filed: 09/12/21 19:26> Time: 19:24 <VIRI Glass - Last Filed: 09/12/21 19:26> MDM - Neuro Symptoms/Deficit MDM Narrative Medical decision making narrative: 40-year-old female with a past medical history of anxiety, depression, asthma, Crohn's disease, GERD, HLD, HTN, IBS, migraines, OCD, panic disorder, PTSD, seizures, diabetes, presenting to ED complaining of right eye swelling/tw itching, and right arm/leg numbness and weakness since Friday. Was instructed to come to ED by PCP. Also reports CP and SOB since this morning. 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 Patient is out of the window for tPA. Concern for subacute CVA. There is concern for [place]. Symptoms not consistent with TIA. Plan: EKG, labs, UA, CXR, head CT, Orthostatic vital signs,re-evaluate <VIRI Rao - Last Filed: 09/12/21 16:49> Differential Diagnosis Differential diagnosis: Likely cerebrovascular accident <VIRI Rao - Last Filed: 09/12/21 16:49> Medical Records Attestation: I reviewed the patient's medical records. <VIRI Rao Last Filed: 09/12/21 16:49> Lab Data Attestation: I reviewed the patient's lab results. <VIRI Rao - Last Filed: 09/12/21 16:49> Result diagrams: : 09/12/21 12:14 09/12/21 12:14 <VIRI Rao - Last Filed: 09/12/21 16:49> Labs: Lab Results 09/12/21 09/12/21 09/12/21 Range/Units 12:14 12:14 12:14 WBC 12.0 H (4.8-10.8) X10*3/uL RBC 4.60 (4.20-5.50) X10*6/uL Hgb 13.6 (12.0-16.0) g/dl Hct 41.9 (37.0-47.0) % MCV 91.1 (80.0-98.0) fL MCH 29.6 (27.0-33.0) pg MCHC 32.5 (31.0-35.0) g/dl RDW 13.2 (11.0-16.0) % Plt Count 221 (160-400) X10*3/uL MPV 10.6 (9.4-12.3) fL Immature Gran % (Auto) 0.8 H (0.0-0.4) % Neut % (Auto) 63.3 (45-73) % Lymph % (Auto) 26.4 (20-40) % [place] % (Auto) 7.6 (2-11) % Eos % (Auto) 1.5 (0-4) % Baso % (Auto) 0.4 (0-2) % Lymph # (Auto) 3.2 (1.2-4.9) X10*3/uL [place] # (Auto) 0.9 (0.1-1.2) X10*3/uL Eos # (Auto) 0.2 (0.0-0.4) X10*3/uL Baso # (Auto) 0.1 (0.0-0.2) X10*3/uL Abs Immat Gran (auto) 0.10 H (0.00-0.03) X10*3/uL Absolute Neuts (auto) 7.6 (2.0-8.3) x10*3/uL Absolute Nucleated RBC 0.000 (0.0-0.012) X10*3/uL Nucleated RBC % (auto) 0.0 (0.0-0.2) /100WBC PT (10.0-13.1) SEC INR (0.9-1.1) Sodium 137 (135-145) mmol/L Potassium 4.0 (3.3-5.1) mmol/L Chloride 105 (96-108) mmol/L Carbon Dioxide 22 (22-29) mmol/L Anion Gap 14 (12-20) BUN 5 L D (9-16) mg/dL Creatinine 0.68 (0.5-1.4) mg/dL Estim Creat Clear Calc 111.4 Estimated GFR > 60 POC Glucose (60-115) mg/dL Random Glucose 205 H (60-115) mg/dL Calcium 8.5 D (8.4-10.2) mg/dL Magnesium 1.6 (1.6-2.6) mg/dL Total Bilirubin < 0.2 (0.0-1.0) mg/dL Direct Bilirubin < 0.2 (0.0-0.5) mg/dL AST 39 H D (5-31) U/L ALT 30 (0-31) U/L Alkaline Phosphatase 82 (39-117) U/L Troponin I High Sens < 3.5 (<3.5-17.0) ng/L Total Protein 7.4 (6.5-8.0) g/dL Albumin 3.8 (3.5-5.0) g/dL Triglycerides mg/dL Cholesterol mg/dL LDL Cholesterol, Calc mg/dl HDL Cholesterol mg/dL Lipase 61 (8-78) U/L Beta HCG, Quant mIU/mL Urine Color Urine Appearance Urine pH (5.0-8.0) Ur Specific [place] (1.005-1.025) Urine Protein (NEG-TRACE) MG/DL Urine Glucose (UA) (NEG) MG/DL Urine Ketones (NEG) MG/DL Urine Blood (NEG) Urine Nitrite (NEG) Ur Leukocyte Esterase (NEG) Urine RBC (0) /HPF Urine WBC (0-4) /HPF Ur Squamous Epith Cells /LPF Urine Bacteria /LPF Urine Yeast /HPF Urine Opiates Screen (Not Detect) Urine Fentanyl Screen (Not Detect) Ur Barbiturates Screen (Not Detect) Ur Phencyclidine Scrn (Not Detect) Ur Amphetamines Screen (Not Detect) U Benzodiazepines Scrn (Not Detect) Urine Cocaine Screen (Not Detect) U Marijuana (THC) Screen (Not Detect) COVID-19 (ALEX) (Negative) COVID-19 Clin Com 09/12/21 09/12/21 09/12/21 Range/Units 13:22 13:22 13:54 WBC (4.8-10.8) X10*3/uL RBC (4.20-5.50) X10*6/uL Hgb (12.0-16.0) g/dl Hct (37.0-47.0) % MCV (80.0-98.0) fL MCH (27.0-33.0) pg MCHC (31.0-35.0) g/dl RDW (11.0-16.0) % Plt Count (160-400) X10*3/uL MPV (9.4-12.3) fL Immature Gran % (Auto) (0.0-0.4) % Neut % (Auto) (45-73) % Lymph % (Auto) (20-40) % [place] % (Auto) (2-11) % Eos % (Auto) (0-4) % Baso % (Auto) (0-2) % Lymph # (Auto) (1.2-4.9) X10*3/uL [place] # (Auto) (0.1-1.2) X10*3/uL Eos # (Auto) (0.0-0.4) X10*3/uL Baso # (Auto) (0.0-0.2) X10*3/uL Abs Immat Gran (auto) (0.00-0.03) X10*3/uL Absolute Neuts (auto) (2.0-8.3) x10*3/uL Absolute Nucleated RBC (0.0-0.012) X10*3/uL Nucleated RBC % (auto) (0.0-0.2) /100WBC PT 9.6 L (10.0-13.1) SEC INR 0.8 L (0.9-1.1) Sodium (135-145) mmol/L Potassium (3.3-5.1) mmol/L Chloride (96-108) mmol/L Carbon Dioxide (22-29) mmol/L Anion Gap (12-20) BUN (9-16) mg/dL Creatinine (0.5-1.4) mg/dL Estim Creat Clear Calc Estimated GFR POC Glucose (60-115) mg/dL Random Glucose (60-115) mg/dL Calcium (8.4-10.2) mg/dL Magnesium (1.6-2.6) mg/dL Total Bilirubin (0.0-1.0) mg/dL Direct Bilirubin (0.0-0.5) mg/dL AST (5-31) U/L ALT (0-31) U/L Alkaline Phosphatase (39-117) U/L Troponin I High Sens (<3.5-17.0) ng/L Total Protein (6.5-8.0) g/dL Albumin (3.5-5.0) g/dL Triglycerides mg/dL Cholesterol mg/dL LDL Cholesterol, Calc mg/dl HDL Cholesterol mg/dL Lipase (8-78) U/L Beta HCG, Quant < 2 mIU/mL Urine Color Urine Appearance Urine pH (5.0-8.0) Ur Specific [place] (1.005-1.025) Urine Protein (NEG-TRACE) MG/DL Urine Glucose (UA) (NEG) MG/DL Urine Ketones (NEG) MG/DL Urine Blood (NEG) Urine Nitrite (NEG) Ur Leukocyte Esterase (NEG) Urine RBC (0) /HPF Urine WBC (0-4) /HPF Ur Squamous Epith Cells /LPF Urine Bacteria /LPF Urine Yeast /HPF Urine Opiates Screen (Not Detect) Urine Fentanyl Screen (Not Detect) Ur Barbiturates Screen (Not Detect) Ur Phencyclidine Scrn (Not Detect) Ur Amphetamines Screen (Not Detect) U Benzodiazepines Scrn (Not Detect) Urine Cocaine Screen (Not Detect) U Marijuana (THC) Screen (Not Detect) COVID-19 (ALEX) Negative (Negative) COVID-19 Clin Com See Note 09/12/21 09/12/21 09/12/21 Range/Units 13:54 15:12 15:12 WBC (4.8-10.8) X10*3/uL RBC (4.20-5.50) X10*6/uL Hgb (12.0-16.0) g/dl Hct (37.0-47.0) % MCV (80.0-98.0) fL MCH (27.0-33.0) pg MCHC (31.0-35.0) g/dl RDW (11.0-16.0) % Plt Count (160-400) X10*3/uL MPV (9.4-12.3) fL Immature Gran % (Auto) (0.0-0.4) % Neut % (Auto) (45-73) % Lymph % (Auto) (20-40) % [place] % (Auto) (2-11) % Eos % (Auto) (0-4) % Baso % (Auto) (0-2) % Lymph # (Auto) (1.2-4.9) X10*3/uL [place] # (Auto) (0.1-1.2) X10*3/uL Eos # (Auto) (0.0-0.4) X10*3/uL Baso # (Auto) (0.0-0.2) X10*3/uL Abs Immat Gran (auto) (0.00-0.03) X10*3/uL Absolute Neuts (auto) (2.0-8.3) x10*3/uL Absolute Nucleated RBC (0.0-0.012) X10*3/uL Nucleated RBC % (auto) (0.0-0.2) /100WBC PT (10.0-13.1) SEC INR (0.9-1.1) Sodium (135-145) mmol/L Potassium (3.3-5.1) mmol/L Chloride (96-108) mmol/L Carbon Dioxide (22-29) mmol/L Anion Gap (12-20) BUN (9-16) mg/dL Creatinine (0.5-1.4) mg/dL Estim Creat Clear Calc Estimated GFR POC Glucose (60-115) mg/dL Random Glucose (60-115) mg/dL Calcium (8.4-10.2) mg/dL Magnesium (1.6-2.6) mg/dL Total Bilirubin (0.0-1.0) mg/dL Direct Bilirubin (0.0-0.5) mg/dL AST (5-31) U/L ALT (0-31) U/L Alkaline Phosphatase (39-117) U/L Troponin I High Sens (<3.5-17.0) ng/L Total Protein (6.5-8.0) g/dL Albumin (3.5-5.0) g/dL Triglycerides 267 mg/dL Cholesterol 262 mg/dL LDL Cholesterol, Calc 168 mg/dl HDL Cholesterol 41 mg/dL Lipase (8-78) U/L Beta HCG, Quant mIU/mL Urine Color YELLOW Urine Appearance HAZY Urine pH 6.5 (5.0-8.0) Ur Specific [place] <= 1.005 (1.005-1.025) Urine Protein NEG (NEG-TRACE) MG/DL Urine Glucose (UA) >=1000 H (NEG) MG/DL Urine Ketones NEG (NEG) MG/DL Urine Blood NEG (NEG) Urine Nitrite NEG (NEG) Ur Leukocyte Esterase TRACE H (NEG) Urine RBC 1-4 (0) /HPF Urine WBC 1-4 (0-4) /HPF Ur Squamous Epith Cells 3+ /LPF Urine Bacteria TRACE /LPF Urine Yeast 1+ /HPF Urine Opiates Screen Not Detected (Not Detect) Urine Fentanyl Screen Not Detected (Not Detect) Ur Barbiturates Screen POSITIVE H (Not Detect) Ur Phencyclidine Scrn Not Detected (Not Detect) Ur Amphetamines Screen Not Detected (Not Detect) U Benzodiazepines Scrn Not Detected (Not Detect) Urine Cocaine Screen Not Detected (Not Detect) U Marijuana (THC) Screen POSITIVE H (Not Detect) COVID-19 (ALEX) (Negative) COVID-19 Clin Com 09/12/21 Range/Units 18:56 WBC (4.8-10.8) X10*3/uL RBC (4.20-5.50) X10*6/uL Hgb (12.0-16.0) g/dl Hct (37.0-47.0) % MCV (80.0-98.0) fL MCH (27.0-33.0) pg MCHC (31.0-35.0) g/dl RDW (11.0-16.0) % Plt Count (160-400) X10*3/uL MPV (9.4-12.3) fL Immature Gran % (Auto) (0.0-0.4) % Neut % (Auto) (45-73) % Lymph % (Auto) (20-40) % [place] % (Auto) (2-11) % Eos % (Auto) (0-4) % Baso % (Auto) (0-2) % Lymph # (Auto) (1.2-4.9) X10*3/uL [place] # (Auto) (0.1-1.2) X10*3/uL Eos # (Auto) (0.0-0.4) X10*3/uL Baso # (Auto) (0.0-0.2) X10*3/uL Abs Immat Gran (auto) (0.00-0.03) X10*3/uL Absolute Neuts (auto) (2.0-8.3) x10*3/uL Absolute Nucleated RBC (0.0-0.012) X10*3/uL Nucleated RBC % (auto) (0.0-0.2) /100WBC PT (10.0-13.1) SEC INR (0.9-1.1) Sodium (135-145) mmol/L Potassium (3.3-5.1) mmol/L Chloride (96-108) mmol/L Carbon Dioxide (22-29) mmol/L Anion Gap (12-20) BUN (9-16) mg/dL Creatinine (0.5-1.4) mg/dL Estim Creat Clear Calc Estimated GFR POC Glucose 121 H (60-115) mg/dL Random Glucose (60-115) mg/dL Calcium (8.4-10.2) mg/dL Magnesium (1.6-2.6) mg/dL Total Bilirubin (0.0-1.0) mg/dL Direct Bilirubin (0.0-0.5) mg/dL AST (5-31) U/L ALT (0-31) U/L Alkaline Phosphatase (39-117) U/L Troponin I High Sens (<3.5-17.0) ng/L Total Protein (6.5-8.0) g/dL Albumin (3.5-5.0) g/dL Triglycerides mg/dL Cholesterol mg/dL LDL Cholesterol, Calc mg/dl HDL Cholesterol mg/dL Lipase (8-78) U/L Beta HCG, Quant mIU/mL Urine Color Urine Appearance Urine pH (5.0-8.0) Ur Specific [place] (1.005-1.025) Urine Protein (NEG-TRACE) MG/DL Urine Glucose (UA) (NEG) MG/DL Urine Ketones (NEG) MG/DL Urine Blood (NEG) Urine Nitrite (NEG) Ur Leukocyte Esterase (NEG) Urine RBC (0) /HPF Urine WBC (0-4) /HPF Ur Squamous Epith Cells /LPF Urine Bacteria /LPF Urine Yeast /HPF Urine Opiates Screen (Not Detect) Urine Fentanyl Screen (Not Detect) Ur Barbiturates Screen (Not Detect) Ur Phencyclidine Scrn (Not Detect) Ur Amphetamines Screen (Not Detect) U Benzodiazepines Scrn (Not Detect) Urine Cocaine Screen (Not Detect) U Marijuana (THC) Screen (Not Detect) COVID-19 (ALEX) (Negative) COVID-19 Clin Com <VIRI Rao - Last Filed: 09/12/21 16:49> Lab Results 09/12/21 09/12/21 09/12/21 Range/Units 12:14 12:14 12:14 WBC 12.0 H (4.8-10.8) X10*3/uL RBC 4.60 (4.20-5.50) X10*6/uL Hgb 13.6 (12.0-16.0) g/dl Hct 41.9 (37.0-47.0) % MCV 91.1 (80.0-98.0) fL MCH 29.6 (27.0-33.0) pg MCHC 32.5 (31.0-35.0) g/dl RDW 13.2 (11.0-16.0) % Plt Count 221 (160-400) X10*3/uL MPV 10.6 (9.4-12.3) fL Immature Gran % (Auto) 0.8 H (0.0-0.4) % Neut % (Auto) 63.3 (45-73) % Lymph % (Auto) 26.4 (20-40) % [place] % (Auto) 7.6 (2-11) % Eos % (Auto) 1.5 (0-4) % Baso % (Auto) 0.4 (0-2) % Lymph # (Auto) 3.2 (1.2-4.9) X10*3/uL [place] # (Auto) 0.9 (0.1-1.2) X10*3/uL Eos # (Auto) 0.2 (0.0-0.4) X10*3/uL Baso # (Auto) 0.1 (0.0-0.2) X10*3/uL Abs Immat Gran (auto) 0.10 H (0.00-0.03) X10*3/uL Absolute Neuts (auto) 7.6 (2.0-8.3) x10*3/uL Absolute Nucleated RBC 0.000 (0.0-0.012) X10*3/uL Nucleated RBC % (auto) 0.0 (0.0-0.2) /100WBC PT (10.0-13.1) SEC INR (0.9-1.1) Sodium 137 (135-145) mmol/L Potassium 4.0 (3.3-5.1) mmol/L Chloride 105 (96-108) mmol/L Carbon Dioxide 22 (22-29) mmol/L Anion Gap 14 (12-20) BUN 5 L D (9-16) mg/dL Creatinine 0.68 (0.5-1.4) mg/dL Estim Creat Clear Calc 111.4 Estimated GFR > 60 POC Glucose (60-115) mg/dL Random Glucose 205 H (60-115) mg/dL Calcium 8.5 D (8.4-10.2) mg/dL Magnesium 1.6 (1.6-2.6) mg/dL Total Bilirubin < 0.2 (0.0-1.0) mg/dL Direct Bilirubin < 0.2 (0.0-0.5) mg/dL AST 39 H D (5-31) U/L ALT 30 (0-31) U/L Alkaline Phosphatase 82 (39-117) U/L Troponin I High Sens < 3.5 (<3.5-17.0) ng/L Total Protein 7.4 (6.5-8.0) g/dL Albumin 3.8 (3.5-5.0) g/dL Triglycerides mg/dL Cholesterol mg/dL LDL Cholesterol, Calc mg/dl HDL Cholesterol mg/dL Lipase 61 (8-78) U/L Beta HCG, Quant mIU/mL Urine Color Urine Appearance Urine pH (5.0-8.0) Ur Specific [place] (1.005-1.025) Urine Protein (NEG-TRACE) MG/DL Urine Glucose (UA) (NEG) MG/DL Urine Ketones (NEG) MG/DL Urine Blood (NEG) Urine Nitrite (NEG) Ur Leukocyte Esterase (NEG) Urine RBC (0) /HPF Urine WBC (0-4) /HPF Ur Squamous Epith Cells /LPF Urine Bacteria /LPF Urine Yeast /HPF Urine Opiates Screen (Not Detect) Urine Fentanyl Screen (Not Detect) Ur Barbiturates Screen (Not Detect) Ur Phencyclidine Scrn (Not Detect) Ur Amphetamines Screen (Not Detect) U Benzodiazepines Scrn (Not Detect) Urine Cocaine Screen (Not Detect) U Marijuana (THC) Screen (Not Detect) COVID-19 (ALEX) (Negative) COVID-19 Clin Com 09/12/21 09/12/21 09/12/21 Range/Units 13:22 13:22 13:54 WBC (4.8-10.8) X10*3/uL RBC (4.20-5.50) X10*6/uL Hgb (12.0-16.0) g/dl Hct (37.0-47.0) % MCV (80.0-98.0) fL MCH (27.0-33.0) pg MCHC (31.0-35.0) g/dl RDW (11.0-16.0) % Plt Count (160-400) X10*3/uL MPV (9.4-12.3) fL Immature Gran % (Auto) (0.0-0.4) % Neut % (Auto) (45-73) % Lymph % (Auto) (20-40) % [place] % (Auto) (2-11) % Eos % (Auto) (0-4) % Baso % (Auto) (0-2) % Lymph # (Auto) (1.2-4.9) X10*3/uL [place] # (Auto) (0.1-1.2) X10*3/uL Eos # (Auto) (0.0-0.4) X10*3/uL Baso # (Auto) (0.0-0.2) X10*3/uL Abs Immat Gran (auto) (0.00-0.03) X10*3/uL Absolute Neuts (auto) (2.0-8.3) x10*3/uL Absolute Nucleated RBC (0.0-0.012) X10*3/uL Nucleated RBC % (auto) (0.0-0.2) /100WBC PT 9.6 L (10.0-13.1) SEC INR 0.8 L (0.9-1.1) Sodium (135-145) mmol/L Potassium (3.3-5.1) mmol/L Chloride (96-108) mmol/L Carbon Dioxide (22-29) mmol/L Anion Gap (12-20) BUN (9-16) mg/dL Creatinine (0.5-1.4) mg/dL Estim Creat Clear Calc Estimated GFR POC Glucose (60-115) mg/dL Random Glucose (60-115) mg/dL Calcium (8.4-10.2) mg/dL Magnesium (1.6-2.6) mg/dL Total Bilirubin (0.0-1.0) mg/dL Direct Bilirubin (0.0-0.5) mg/dL AST (5-31) U/L ALT (0-31) U/L Alkaline Phosphatase (39-117) U/L Troponin I High Sens (<3.5-17.0) ng/L Total Protein (6.5-8.0) g/dL Albumin (3.5-5.0) g/dL Triglycerides mg/dL Cholesterol mg/dL LDL Cholesterol, Calc mg/dl HDL Cholesterol mg/dL Lipase (8-78) U/L Beta HCG, Quant < 2 mIU/mL Urine Color Urine Appearance Urine pH (5.0-8.0) Ur Specific [place] (1.005-1.025) Urine Protein (NEG-TRACE) MG/DL Urine Glucose (UA) (NEG) MG/DL Urine Ketones (NEG) MG/DL Urine Blood (NEG) Urine Nitrite (NEG) Ur Leukocyte Esterase (NEG) Urine RBC (0) /HPF Urine WBC (0-4) /HPF Ur Squamous Epith Cells /LPF Urine Bacteria /LPF Urine Yeast /HPF Urine Opiates Screen (Not Detect) Urine Fentanyl Screen (Not Detect) Ur Barbiturates Screen (Not Detect) Ur Phencyclidine Scrn (Not Detect) Ur Amphetamines Screen (Not Detect) U Benzodiazepines Scrn (Not Detect) Urine Cocaine Screen (Not Detect) U Marijuana (THC) Screen (Not Detect) COVID-19 (ALEX) Negative (Negative) COVID-19 Clin Com See Note 09/12/21 09/12/21 09/12/21 Range/Units 13:54 15:12 15:12 WBC (4.8-10.8) X10*3/uL RBC (4.20-5.50) X10*6/uL Hgb (12.0-16.0) g/dl Hct (37.0-47.0) % MCV (80.0-98.0) fL MCH (27.0-33.0) pg MCHC (31.0-35.0) g/dl RDW (11.0-16.0) % Plt Count (160-400) X10*3/uL MPV (9.4-12.3) fL Immature Gran % (Auto) (0.0-0.4) % Neut % (Auto) (45-73) % Lymph % (Auto) (20-40) % [place] % (Auto) (2-11) % Eos % (Auto) (0-4) % Baso % (Auto) (0-2) % Lymph # (Auto) (1.2-4.9) X10*3/uL [place] # (Auto) (0.1-1.2) X10*3/uL Eos # (Auto) (0.0-0.4) X10*3/uL Baso # (Auto) (0.0-0.2) X10*3/uL Abs Immat Gran (auto) (0.00-0.03) X10*3/uL Absolute Neuts (auto) (2.0-8.3) x10*3/uL Absolute Nucleated RBC (0.0-0.012) X10*3/uL Nucleated RBC % (auto) (0.0-0.2) /100WBC PT (10.0-13.1) SEC INR (0.9-1.1) Sodium (135-145) mmol/L Potassium (3.3-5.1) mmol/L Chloride (96-108) mmol/L Carbon Dioxide (22-29) mmol/L Anion Gap (12-20) BUN (9-16) mg/dL Creatinine (0.5-1.4) mg/dL Estim Creat Clear Calc Estimated GFR POC Glucose (60-115) mg/dL Random Glucose (60-115) mg/dL Calcium (8.4-10.2) mg/dL Magnesium (1.6-2.6) mg/dL Total Bilirubin (0.0-1.0) mg/dL Direct Bilirubin (0.0-0.5) mg/dL AST (5-31) U/L ALT (0-31) U/L Alkaline Phosphatase (39-117) U/L Troponin I High Sens (<3.5-17.0) ng/L Total Protein (6.5-8.0) g/dL Albumin (3.5-5.0) g/dL Triglycerides 267 mg/dL Cholesterol 262 mg/dL LDL Cholesterol, Calc 168 mg/dl HDL Cholesterol 41 mg/dL Lipase (8-78) U/L Beta HCG, Quant mIU/mL Urine Color YELLOW Urine Appearance HAZY Urine pH 6.5 (5.0-8.0) Ur Specific [place] <= 1.005 (1.005-1.025) Urine Protein NEG (NEG-TRACE) MG/DL Urine Glucose (UA) >=1000 H (NEG) MG/DL Urine Ketones NEG (NEG) MG/DL Urine Blood NEG (NEG) Urine Nitrite NEG (NEG) Ur Leukocyte Esterase TRACE H (NEG) Urine RBC 1-4 (0) /HPF Urine WBC 1-4 (0-4) /HPF Ur Squamous Epith Cells 3+ /LPF Urine Bacteria TRACE /LPF Urine Yeast 1+ /HPF Urine Opiates Screen Not Detected (Not Detect) Urine Fentanyl Screen Not Detected (Not Detect) Ur Barbiturates Screen POSITIVE H (Not Detect) Ur Phencyclidine Scrn Not Detected (Not Detect) Ur Amphetamines Screen Not Detected (Not Detect) U Benzodiazepines Scrn Not Detected (Not Detect) Urine Cocaine Screen Not Detected (Not Detect) U Marijuana (THC) Screen POSITIVE H (Not Detect) COVID-19 (ALEX) (Negative) COVID-19 Clin Com 09/12/21 Range/Units 18:56 WBC (4.8-10.8) X10*3/uL RBC (4.20-5.50) X10*6/uL Hgb (12.0-16.0) g/dl Hct (37.0-47.0) % MCV (80.0-98.0) fL MCH (27.0-33.0) pg MCHC (31.0-35.0) g/dl RDW (11.0-16.0) % Plt Count (160-400) X10*3/uL MPV (9.4-12.3) fL Immature Gran % (Auto) (0.0-0.4) % Neut % (Auto) (45-73) % Lymph % (Auto) (20-40) % [place] % (Auto) (2-11) % Eos % (Auto) (0-4) % Baso % (Auto) (0-2) % Lymph # (Auto) (1.2-4.9) X10*3/uL [place] # (Auto) (0.1-1.2) X10*3/uL Eos # (Auto) (0.0-0.4) X10*3/uL Baso # (Auto) (0.0-0.2) X10*3/uL Abs Immat Gran (auto) (0.00-0.03) X10*3/uL Absolute Neuts (auto) (2.0-8.3) x10*3/uL Absolute Nucleated RBC (0.0-0.012) X10*3/uL Nucleated RBC % (auto) (0.0-0.2) /100WBC PT (10.0-13.1) SEC INR (0.9-1.1) Sodium (135-145) mmol/L Potassium (3.3-5.1) mmol/L Chloride (96-108) mmol/L Carbon Dioxide (22-29) mmol/L Anion Gap (12-20) BUN (9-16) mg/dL Creatinine (0.5-1.4) mg/dL Estim Creat Clear Calc Estimated GFR POC Glucose 121 H (60-115) mg/dL Random Glucose (60-115) mg/dL Calcium (8.4-10.2) mg/dL Magnesium (1.6-2.6) mg/dL Total Bilirubin (0.0-1.0) mg/dL Direct Bilirubin (0.0-0.5) mg/dL AST (5-31) U/L ALT (0-31) U/L Alkaline Phosphatase (39-117) U/L Troponin I High Sens (<3.5-17.0) ng/L Total Protein (6.5-8.0) g/dL Albumin (3.5-5.0) g/dL Triglycerides mg/dL Cholesterol mg/dL LDL Cholesterol, Calc mg/dl HDL Cholesterol mg/dL Lipase (8-78) U/L Beta HCG, Quant mIU/mL Urine Color Urine Appearance Urine pH (5.0-8.0) Ur Specific [place] (1.005-1.025) Urine Protein (NEG-TRACE) MG/DL Urine Glucose (UA) (NEG) MG/DL Urine Ketones (NEG) MG/DL Urine Blood (NEG) Urine Nitrite (NEG) Ur Leukocyte Esterase (NEG) Urine RBC (0) /HPF Urine WBC (0-4) /HPF Ur Squamous Epith Cells /LPF Urine Bacteria /LPF Urine Yeast /HPF Urine Opiates Screen (Not Detect) Urine Fentanyl Screen (Not Detect) Ur Barbiturates Screen (Not Detect) Ur Phencyclidine Scrn (Not Detect) Ur Amphetamines Screen (Not Detect) U Benzodiazepines Scrn (Not Detect) Urine Cocaine Screen (Not Detect) U Marijuana (THC) Screen (Not Detect) COVID-19 (ALEX) (Negative) COVID-19 Clin Com <VIRI Glass - Last Filed: 09/12/21 19:26> Lab Results 09/12/21 09/12/21 09/12/21 Range/Units 12:14 12:14 12:14 WBC 12.0 H (4.8-10.8) X10*3/uL RBC 4.60 (4.20-5.50) X10*6/uL Hgb 13.6 (12.0-16.0) g/dl Hct 41.9 (37.0-47.0) % MCV 91.1 (80.0-98.0) fL MCH 29.6 (27.0-33.0) pg MCHC 32.5 (31.0-35.0) g/dl RDW 13.2 (11.0-16.0) % Plt Count 221 (160-400) X10*3/uL MPV 10.6 (9.4-12.3) fL Immature Gran % (Auto) 0.8 H (0.0-0.4) % Neut % (Auto) 63.3 (45-73) % Lymph % (Auto) 26.4 (20-40) % [place] % (Auto) 7.6 (2-11) % Eos % (Auto) 1.5 (0-4) % Baso % (Auto) 0.4 (0-2) % Lymph # (Auto) 3.2 (1.2-4.9) X10*3/uL [place] # (Auto) 0.9 (0.1-1.2) X10*3/uL Eos # (Auto) 0.2 (0.0-0.4) X10*3/uL Baso # (Auto) 0.1 (0.0-0.2) X10*3/uL Abs Immat Gran (auto) 0.10 H (0.00-0.03) X10*3/uL Absolute Neuts (auto) 7.6 (2.0-8.3) x10*3/uL Absolute Nucleated RBC 0.000 (0.0-0.012) X10*3/uL Nucleated RBC % (auto) 0.0 (0.0-0.2) /100WBC PT (10.0-13.1) SEC INR (0.9-1.1) Sodium 137 (135-145) mmol/L Potassium 4.0 (3.3-5.1) mmol/L Chloride 105 (96-108) mmol/L Carbon Dioxide 22 (22-29) mmol/L Anion Gap 14 (12-20) BUN 5 L D (9-16) mg/dL Creatinine 0.68 (0.5-1.4) mg/dL Estim Creat Clear Calc 111.4 Estimated GFR > 60 POC Glucose (60-115) mg/dL Random Glucose 205 H (60-115) mg/dL Calcium 8.5 D (8.4-10.2) mg/dL Magnesium 1.6 (1.6-2.6) mg/dL Total Bilirubin < 0.2 (0.0-1.0) mg/dL Direct Bilirubin < 0.2 (0.0-0.5) mg/dL AST 39 H D (5-31) U/L ALT 30 (0-31) U/L Alkaline Phosphatase 82 (39-117) U/L Troponin I High Sens < 3.5 (<3.5-17.0) ng/L Total Protein 7.4 (6.5-8.0) g/dL Albumin 3.8 (3.5-5.0) g/dL Triglycerides mg/dL Cholesterol mg/dL LDL Cholesterol, Calc mg/dl HDL Cholesterol mg/dL Lipase 61 (8-78) U/L Beta HCG, Quant mIU/mL Urine Color Urine Appearance Urine pH (5.0-8.0) Ur Specific [place] (1.005-1.025) Urine Protein (NEG-TRACE) MG/DL Urine Glucose (UA) (NEG) MG/DL Urine Ketones (NEG) MG/DL Urine Blood (NEG) Urine Nitrite (NEG) Ur Leukocyte Esterase (NEG) Urine RBC (0) /HPF Urine WBC (0-4) /HPF Ur Squamous Epith Cells /LPF Urine Bacteria /LPF Urine Yeast /HPF Urine Opiates Screen (Not Detect) Urine Fentanyl Screen (Not Detect) Ur Barbiturates Screen (Not Detect) Ur Phencyclidine Scrn (Not Detect) Ur Amphetamines Screen (Not Detect) U Benzodiazepines Scrn (Not Detect) Urine Cocaine Screen (Not Detect) U Marijuana (THC) Screen (Not Detect) COVID-19 (ALEX) (Negative) COVID-19 Clin Com 09/12/21 09/12/21 09/12/21 Range/Units 13:22 13:22 13:54 WBC (4.8-10.8) X10*3/uL RBC (4.20-5.50) X10*6/uL Hgb (12.0-16.0) g/dl Hct (37.0-47.0) % MCV (80.0-98.0) fL MCH (27.0-33.0) pg MCHC (31.0-35.0) g/dl RDW (11.0-16.0) % Plt Count (160-400) X10*3/uL MPV (9.4-12.3) fL Immature Gran % (Auto) (0.0-0.4) % Neut % (Auto) (45-73) % Lymph % (Auto) (20-40) % [place] % (Auto) (2-11) % Eos % (Auto) (0-4) % Baso % (Auto) (0-2) % Lymph # (Auto) (1.2-4.9) X10*3/uL [place] # (Auto) (0.1-1.2) X10*3/uL Eos # (Auto) (0.0-0.4) X10*3/uL Baso # (Auto) (0.0-0.2) X10*3/uL Abs Immat Gran (auto) (0.00-0.03) X10*3/uL Absolute Neuts (auto) (2.0-8.3) x10*3/uL Absolute Nucleated RBC (0.0-0.012) X10*3/uL Nucleated RBC % (auto) (0.0-0.2) /100WBC PT 9.6 L (10.0-13.1) SEC INR 0.8 L (0.9-1.1) Sodium (135-145) mmol/L Potassium (3.3-5.1) mmol/L Chloride (96-108) mmol/L Carbon Dioxide (22-29) mmol/L Anion Gap (12-20) BUN (9-16) mg/dL Creatinine (0.5-1.4) mg/dL Estim Creat Clear Calc Estimated GFR POC Glucose (60-115) mg/dL Random Glucose (60-115) mg/dL Calcium (8.4-10.2) mg/dL Magnesium (1.6-2.6) mg/dL Total Bilirubin (0.0-1.0) mg/dL Direct Bilirubin (0.0-0.5) mg/dL AST (5-31) U/L ALT (0-31) U/L Alkaline Phosphatase (39-117) U/L Troponin I High Sens (<3.5-17.0) ng/L Total Protein (6.5-8.0) g/dL Albumin (3.5-5.0) g/dL Triglycerides mg/dL Cholesterol mg/dL LDL Cholesterol, Calc mg/dl HDL Cholesterol mg/dL Lipase (8-78) U/L Beta HCG, Quant < 2 mIU/mL Urine Color Urine Appearance Urine pH (5.0-8.0) Ur Specific [place] (1.005-1.025) Urine Protein (NEG-TRACE) MG/DL Urine Glucose (UA) (NEG) MG/DL Urine Ketones (NEG) MG/DL Urine Blood (NEG) Urine Nitrite (NEG) Ur Leukocyte Esterase (NEG) Urine RBC (0) /HPF Urine WBC (0-4) /HPF Ur Squamous Epith Cells /LPF Urine Bacteria /LPF Urine Yeast /HPF Urine Opiates Screen (Not Detect) Urine Fentanyl Screen (Not Detect) Ur Barbiturates Screen (Not Detect) Ur Phencyclidine Scrn (Not Detect) Ur Amphetamines Screen (Not Detect) U Benzodiazepines Scrn (Not Detect) Urine Cocaine Screen (Not Detect) U Marijuana (THC) Screen (Not Detect) COVID-19 (ALEX) Negative (Negative) COVID-19 Clin Com See Note 09/12/21 09/12/21 09/12/21 Range/Units 13:54 15:12 15:12 WBC (4.8-10.8) X10*3/uL RBC (4.20-5.50) X10*6/uL Hgb (12.0-16.0) g/dl Hct (37.0-47.0) % MCV (80.0-98.0) fL MCH (27.0-33.0) pg MCHC (31.0-35.0) g/dl RDW (11.0-16.0) % Plt Count (160-400) X10*3/uL MPV (9.4-12.3) fL Immature Gran % (Auto) (0.0-0.4) % Neut % (Auto) (45-73) % Lymph % (Auto) (20-40) % [place] % (Auto) (2-11) % Eos % (Auto) (0-4) % Baso % (Auto) (0-2) % Lymph # (Auto) (1.2-4.9) X10*3/uL [place] # (Auto) (0.1-1.2) X10*3/uL Eos # (Auto) (0.0-0.4) X10*3/uL Baso # (Auto) (0.0-0.2) X10*3/uL Abs Immat Gran (auto) (0.00-0.03) X10*3/uL Absolute Neuts (auto) (2.0-8.3) x10*3/uL Absolute Nucleated RBC (0.0-0.012) X10*3/uL Nucleated RBC % (auto) (0.0-0.2) /100WBC PT (10.0-13.1) SEC INR (0.9-1.1) Sodium (135-145) mmol/L Potassium (3.3-5.1) mmol/L Chloride (96-108) mmol/L Carbon Dioxide (22-29) mmol/L Anion Gap (12-20) BUN (9-16) mg/dL Creatinine (0.5-1.4) mg/dL Estim Creat Clear Calc Estimated GFR POC Glucose (60-115) mg/dL Random Glucose (60-115) mg/dL Calcium (8.4-10.2) mg/dL Magnesium (1.6-2.6) mg/dL Total Bilirubin (0.0-1.0) mg/dL Direct Bilirubin (0.0-0.5) mg/dL AST (5-31) U/L ALT (0-31) U/L Alkaline Phosphatase (39-117) U/L Troponin I High Sens (<3.5-17.0) ng/L Total Protein (6.5-8.0) g/dL Albumin (3.5-5.0) g/dL Triglycerides 267 mg/dL Cholesterol 262 mg/dL LDL Cholesterol, Calc 168 mg/dl HDL Cholesterol 41 mg/dL Lipase (8-78) U/L Beta HCG, Quant mIU/mL Urine Color YELLOW Urine Appearance HAZY Urine pH 6.5 (5.0-8.0) Ur Specific [place] <= 1.005 (1.005-1.025) Urine Protein NEG (NEG-TRACE) MG/DL Urine Glucose (UA) >=1000 H (NEG) MG/DL Urine Ketones NEG (NEG) MG/DL Urine Blood NEG (NEG) Urine Nitrite NEG (NEG) Ur Leukocyte Esterase TRACE H (NEG) Urine RBC 1-4 (0) /HPF Urine WBC 1-4 (0-4) /HPF Ur Squamous Epith Cells 3+ /LPF Urine Bacteria TRACE /LPF Urine Yeast 1+ /HPF Urine Opiates Screen Not Detected (Not Detect) Urine Fentanyl Screen Not Detected (Not Detect) Ur Barbiturates Screen POSITIVE H (Not Detect) Ur Phencyclidine Scrn Not Detected (Not Detect) Ur Amphetamines Screen Not Detected (Not Detect) U Benzodiazepines Scrn Not Detected (Not Detect) Urine Cocaine Screen Not Detected (Not Detect) U Marijuana (THC) Screen POSITIVE H (Not Detect) COVID-19 (ALEX) (Negative) COVID-19 Clin Com 09/12/21 Range/Units 18:56 WBC (4.8-10.8) X10*3/uL RBC (4.20-5.50) X10*6/uL Hgb (12.0-16.0) g/dl Hct (37.0-47.0) % MCV (80.0-98.0) fL MCH (27.0-33.0) pg MCHC (31.0-35.0) g/dl RDW (11.0-16.0) % Plt Count (160-400) X10*3/uL MPV (9.4-12.3) fL Immature Gran % (Auto) (0.0-0.4) % Neut % (Auto) (45-73) % Lymph % (Auto) (20-40) % [place] % (Auto) (2-11) % Eos % (Auto) (0-4) % Baso % (Auto) (0-2) % Lymph # (Auto) (1.2-4.9) X10*3/uL [place] # (Auto) (0.1-1.2) X10*3/uL Eos # (Auto) (0.0-0.4) X10*3/uL Baso # (Auto) (0.0-0.2) X10*3/uL Abs Immat Gran (auto) (0.00-0.03) X10*3/uL Absolute Neuts (auto) (2.0-8.3) x10*3/uL Absolute Nucleated RBC (0.0-0.012) X10*3/uL Nucleated RBC % (auto) (0.0-0.2) /100WBC PT (10.0-13.1) SEC INR (0.9-1.1) Sodium (135-145) mmol/L Potassium (3.3-5.1) mmol/L Chloride (96-108) mmol/L Carbon Dioxide (22-29) mmol/L Anion Gap (12-20) BUN (9-16) mg/dL Creatinine (0.5-1.4) mg/dL Estim Creat Clear Calc Estimated GFR POC Glucose 121 H (60-115) mg/dL Random Glucose (60-115) mg/dL Calcium (8.4-10.2) mg/dL Magnesium (1.6-2.6) mg/dL Total Bilirubin (0.0-1.0) mg/dL Direct Bilirubin (0.0-0.5) mg/dL AST (5-31) U/L ALT (0-31) U/L Alkaline Phosphatase (39-117) U/L Troponin I High Sens (<3.5-17.0) ng/L Total Protein (6.5-8.0) g/dL Albumin (3.5-5.0) g/dL Triglycerides mg/dL Cholesterol mg/dL LDL Cholesterol, Calc mg/dl HDL Cholesterol mg/dL Lipase (8-78) U/L Beta HCG, Quant mIU/mL Urine Color Urine Appearance Urine pH (5.0-8.0) Ur Specific [place] (1.005-1.025) Urine Protein (NEG-TRACE) MG/DL Urine Glucose (UA) (NEG) MG/DL Urine Ketones (NEG) MG/DL Urine Blood (NEG) Urine Nitrite (NEG) Ur Leukocyte Esterase (NEG) Urine RBC (0) /HPF Urine WBC (0-4) /HPF Ur Squamous Epith Cells /LPF Urine Bacteria /LPF Urine Yeast /HPF Urine Opiates Screen (Not Detect) Urine Fentanyl Screen (Not Detect) Ur Barbiturates Screen (Not Detect) Ur Phencyclidine Scrn (Not Detect) Ur Amphetamines Screen (Not Detect) U Benzodiazepines Scrn (Not Detect) Urine Cocaine Screen (Not Detect) U Marijuana (THC) Screen (Not Detect) COVID-19 (ALEX) (Negative) COVID-19 Clin Com <Jose Alfredo Patton MD - Last Filed: 09/13/21 01:07> NIH Stroke Scale Internal: Initial- Upon Arrival <Miriam Pouliot, PA - Last Filed: 09/12/21 16:49> Level of Consciousness: Alert <Miriam Pouliot, PA - Last Filed: 09/12/21 16:49> Level of Consciousness Questions: Answers both questions correctly <Miriam Pouliot, PA - Last Filed: 09/12/21 16:49> Level of Consciousness Commands: Performs both tasks correctly <Miriam Pouliot, PA - Last Filed: 09/12/21 16:49> Best Gaze: Normal <Miriam Pouliot, PA - Last Filed: 09/12/21 16:49> Visual: No visual loss <Miriam Pouliot, PA - Last Filed: 09/12/21 16:49> Facial Palsy: Normal <Miriam Pouliot, PA - Last Filed: 09/12/21 16:49> Motor Arm (Right): Drift <Miriam Pouliot, PA - Last Filed: 09/12/21 16:49> Motor Arm (Left): No drift <Miriam Pouliot, PA - Last Filed: 09/12/21 16:49> Motor Leg (Right): No drift <Miriam Pouliot, PA - Last Filed: 09/12/21 16:49> Motor Leg (Left): No drift <Miriam Pouliot, PA - Last Filed: 09/12/21 16:49> Limb Ataxia: Absent <Miriam Pouliot, PA - Last Filed: 09/12/21 16:49> Sensory: Normal <Miriam Pouliot, PA - Last Filed: 09/12/21 16:49> Best Language: No aphasia <Miriam Pouliot, PA - Last Filed: 09/12/21 16:49> Dysarthia: Normal <Miriam Pouliot, PA - Last Filed: 09/12/21 16:49> Extinction and Inattention: No abnormality <Miriam Pouliot, PA - Last Filed: 09/12/21 16:49> Score: 1 <Miriam Poultedt, PA - Last Filed: 09/12/21 16:49> 1 <Matthew Urias PA - Last Filed: 09/12/21 19:26> 1 <Jose Alfredo Patton MD - Last Filed: 09/13/21 01:07> Critical Care Time Critical Care Time Critical Care Time: Yes <VIRI Glass - Last Filed: 09/12/21 19:26> Total Critical Care Time: 35 <VIRI Glass - Last Filed: 09/12/21 19:26> Attestation: I attest to this time spent taking care of the patient, obtaining history, physical, reviewing labs, imaging, speaking to my attending, speaking to specialist. <VIRI Glass - Last Filed: 09/12/21 19:26> Discharge Plan Discharge Clinical Impression: Right sided weakness, Cerebellar stroke <VIRI Rao - Last Filed: 09/12/21 16:49> Patient Disposition: Still a Patient <VIRI Rao - Last Filed: 09/12/21 16:49>
[2021-09-12 14:27] LABS: HCG Quantitative < 2 mIU/mL
[2021-09-12] MEDS: Meclizine HCl 25 MG TABLET PO (15:04)
--- NOTE | 2021-09-12 15:06 | PC.NURSE ---
assumed care of patient at 3pm. Patient resting just medicated with meclizine. will continue with plan of care.
[2021-09-12 15:24] LABS: Appearance Urine HAZY; Color Urine YELLOW; Glucose Urine UA >=1000 MG/DL (NEG); Leukocyte Esterase Urine TRACE (NEG); Nitrite Urine NEG (NEG); PH 6.5 (5.0-8.0); Specific Gravity - Urine <= 1.005 (1.005-1.025); Urine Blood NEG (NEG); Urine Ketones NEG (NEG); Urine Protein NEG (NEG-TRACE)
[2021-09-12 15:34] LABS: Barbiturates, Urine POSITIVE (Not Detect); Benzodiazepines Screen Urine Not Detected (Not Detect); Cannabinoid Screen Urine POSITIVE (Not Detect); Cocaine Screen Urine Not Detected (Not Detect); Fentanyl, urine Not Detected (Not Detect); Opiate Screen Urine Not Detected (Not Detect); Phencyclidine Screen Urine Not Detected (Not Detect)
[2021-09-12 15:35] LABS: Amphetamine Screen Urine Not Detected (Not Detect)
[2021-09-12 16:32] LABS: Bacteria Urine TRACE /LPF; Squamous Epithelial Cell Urine 3+ /LPF
[2021-09-12 19:00] LABS: Glucose, Whole Blood 121 mg/dL (60-115)
--- NOTE | 2021-09-12 19:35 | PHA.MEDREC ---
Pharmacy Consult ? Medication Reconciliation Pharmacy has completed the medication reconciliation.
--- NOTE | 2021-09-12 20:10 | PM.IMHP ---
History of Present Illness Date of Service: 09/12/21 Chief Complaint: Right arm tingling and numbness, right eye swollen This 89-year-old female past medical history of asthma, Crohn's disease, GERD, HLD, HTN, IBS, migraine headaches, OCD, depression anxiety, PTSD, seizure disorders, diabetes, HLD, diabetes who presents to the hospital with complaints of right eye swelling, twitching, right arm numbness tingling and weakness, as well as headache since Friday. Patient also reports that today she started having gait issues and walking into [place], bumping and leaning to the left side when walking therefore decided to come to the hospital. She is also complaining of right-sided temporal headache, she reports that she has history of migraines that this headache feels different, she is also having phonophobia and watery discharge from [place], she denies any double or blurry vision. She otherwise denies any chest pain, no palpitations, no shortness of breath, no cough, no abdominal pain nausea or vomiting, no diarrhea constipation, no urinary symptoms and no lower extremity weakness numbness or tingling. On arrival to the ED patient hemodynamically stable with no significant abnormal vitals Labs are significant for WBC count of 12.0, labs otherwise seemed to be unremarkable, UA shows trace leukocyte Estrace with some WBC, Brain MRI shows potential punctate infarct of the right cerebral tonsil, head and neck CT angiogram shows no hemodynamically significant arterial stenosis, dissection, or vascular cut off, there seems to be a short-segment mild focal narrowing of the proximal left superior cerebral artery Patient started on aspirin and will be admitted for further evaluation Review of Systems Review of Systems: Yes all other systems are reviewed and are negative [facility] Medical History Anxiety and depression Asthma Crohn's disease GERD (gastroesophageal reflux disease) Hypercholesterolemia Hypertension IBS (irritable bowel syndrome) Migraine Obesity (BMI 30-39.9) OCD (obsessive compulsive disorder) Panic disorder PTSD (post-traumatic stress disorder) Seizure disorder Tobacco abuse Type 2 diabetes mellitus with hyperglycemia, with long-term current use of insulin Family History Father CVD (cerebrovascular disease) Diabetes Hypertension Mother Depression Chronic mental illness Maternal Grandmother Myocardial infarction CVD (cerebrovascular disease) Breast cancer Maternal Aunt Liver cancer Surgical History H/O arthroscopy H/O bilateral breast reduction surgery History of ankle surgery Previous section Social History Housing: Apartment Alcohol intake: never Patient Tobacco Use Status: Current everyday Tobacco user Tobacco use type: Cigarette Cigarettes Per Day: 5 Smoked in Last 30 Days: Yes e-Cigarette/Vaping Use: Never Used Use of substances other than those prescribed or required for medical reasons: Yes Substance Use Type: Marijuana Advance Directives: No Advance Directives Information Provided: No Patient : No service: No Current occupational status: disabled Current occupation: left handed Cognitive needs: Yes Hearing needs: No Vision needs: Yes Meds Allergies Allergy/AdvReac Type Severity Reaction Status Date / Time morphine [MORPHINE] Allergy Intermediate NAUSEA, Verified 09/12/21 12:01 rash oxycodone [From PERCOCET] Allergy Intermediate ITCHY, rash Verified 09/12/21 12:01 penicillin V Allergy Intermediate hives Verified 09/12/21 12:01 simvastatin Allergy Intermediate rash Verified 09/12/21 12:01 hydrocodone [From VICODIN] Allergy Mild RASH Verified 09/12/21 12:01 amoxicillin [Amoxicillin] Allergy Unknown UNKNOWN Verified 09/12/21 12:01 Active Medications: Current Medications Pharmacy Consult (Consult Rx Perform Med Rec) 1 each MISCELLANE ONCE PRN PRN Reason: Consult order Home Medications Medication Instructions Recorded Confirmed Last Taken Type clonazepam 1 mg tablet 1 mg PO BID 12/31/19 09/12/21 Unknown History venlafaxine 150 mg 300 mg PO DAILY 06/01/20 09/12/21 Unknown History capsule,extended release 24 hr (Effexor XR) clonidine HCl 0.2 mg tablet 0.2 mg PO DAILY 08/07/21 09/12/21 Unknown History insulin glargine 100 unit/mL (3 25 unit subcut QAM 09/12/21 09/12/21 Unknown History mL) subcutaneous pen (Lantus Solostar U-100 Insulin) meloxicam 7.5 mg tablet (Mobic) 1 tab PO DAILY 09/12/21 09/12/21 Unknown History quetiapine 100 mg tablet 1 tab PO BEDTIME 09/12/21 09/12/21 Unknown History quetiapine 400 mg tablet (Seroquel) 1 tab PO BEDTIME 09/12/21 09/12/21 Unknown History trazodone 50 mg tablet 2 tab PO BEDTIME 09/12/21 09/12/21 Unknown History Physical Exam Vital Signs and Narrative: Vital Signs: Last Vital Signs Temp 98.8 F 09/12/21 18:00 Pulse 111 H 09/12/21 18:00 Resp 18 09/12/21 18:00 BP 156/85 H 09/12/21 18:00 Pulse Ox 96 09/12/21 18:00 O2 Del Method 09/12/21 18:00 BMI result Body Mass Index 38.9 Const: General: cooperative and no acute distress Orientation/consciousness: patient oriented x3 HEENT: Other: Patient wearing dark glasses due to photophobia Eyes: General: appearance normal, both eyes and all related structures Resp: Effort & Inspection: normal respiratory effort Auscultation: clear to auscultation bilaterally Cardio: Rate: regular rate Rhythm: regular rhythm GI: Palpation (GI): Soft to palpation Auscultation: normal bowel sounds Skin: General skin exam: no rashes or lesions noted Neuro: Other: 4/5 right upper extremity strength, General: patient oriented x3 Cognition (Neuro): normal cognition Extrem: General: Yes normal to inspection and Yes no pedal edema Results Labs CBC and Chem 7: 09/12/21 12:14 09/12/21 12:14 Labs: Laboratory Results - last 24 hr 09/12/21 09/12/21 09/12/21 12:14 12:14 13:22 MCV 91.1 MCH 29.6 MCHC 32.5 RDW 13.2 Plt Count 221 MPV 10.6 Immature Gran % (Auto) 0.8 H Neut % (Auto) 63.3 Lymph % (Auto) 26.4 [place] % (Auto) 7.6 Eos % (Auto) 1.5 Baso % (Auto) 0.4 Lymph # (Auto) 3.2 [place] # (Auto) 0.9 Eos # (Auto) 0.2 Baso # (Auto) 0.1 Abs Immat Gran (auto) 0.10 H Absolute Neuts (auto) 7.6 Absolute Nucleated RBC 0.000 Nucleated RBC % (auto) 0.0 PT 9.6 L INR 0.8 L Anion Gap 14 Estim Creat Clear Calc 111.4 Estimated GFR > 60 POC Glucose Random Glucose 205 H Calcium 8.5 D Magnesium 1.6 Total Bilirubin < 0.2 Direct Bilirubin < 0.2 AST 39 H D ALT 30 Alkaline Phosphatase 82 Total Protein 7.4 Albumin 3.8 Lipase 61 Beta HCG, Quant Urine Color Urine Appearance Urine pH Ur Specific [place] Urine Protein Urine Glucose (UA) Urine Ketones Urine Blood Urine Nitrite Ur Leukocyte Esterase Urine RBC Urine WBC Ur Squamous Epith Cells Urine Bacteria Urine Yeast Urine Opiates Screen Urine Fentanyl Screen Ur Barbiturates Screen Ur Phencyclidine Scrn Ur Amphetamines Screen U Benzodiazepines Scrn Urine Cocaine Screen U Marijuana (THC) Screen COVID-19 (ALEX) COVID-19 Clin Com 09/12/21 09/12/21 09/12/21 13:22 13:54 15:12 MCV MCH MCHC RDW Plt Count MPV Immature Gran % (Auto) Neut % (Auto) Lymph % (Auto) [place] % (Auto) Eos % (Auto) Baso % (Auto) Lymph # (Auto) [place] # (Auto) Eos # (Auto) Baso # (Auto) Abs Immat Gran (auto) Absolute Neuts (auto) Absolute Nucleated RBC Nucleated RBC % (auto) PT INR Anion Gap Estim Creat Clear Calc Estimated GFR POC Glucose Random Glucose Calcium Magnesium Total Bilirubin Direct Bilirubin AST ALT Alkaline Phosphatase Total Protein Albumin Lipase Beta HCG, Quant < 2 Urine Color Urine Appearance Urine pH Ur Specific [place] Urine Protein Urine Glucose (UA) Urine Ketones Urine Blood Urine Nitrite Ur Leukocyte Esterase Urine RBC Urine WBC Ur Squamous Epith Cells Urine Bacteria Urine Yeast Urine Opiates Screen Not Detected Urine Fentanyl Screen Not Detected Ur Barbiturates Screen POSITIVE H Ur Phencyclidine Scrn Not Detected Ur Amphetamines Screen Not Detected U Benzodiazepines Scrn Not Detected Urine Cocaine Screen Not Detected U Marijuana (THC) Screen POSITIVE H COVID-19 (ALEX) Negative COVID-19 [employer] Com See Note 09/12/21 09/12/21 15:12 18:56 MCV MCH MCHC RDW Plt Count MPV Immature Gran % (Auto) Neut % (Auto) Lymph % (Auto) [place] % (Auto) Eos % (Auto) Baso % (Auto) Lymph # (Auto) [place] # (Auto) Eos # (Auto) Baso # (Auto) Abs Immat Gran (auto) Absolute Neuts (auto) Absolute Nucleated RBC Nucleated RBC % (auto) PT INR Anion Gap Estim Creat Clear Calc Estimated GFR POC Glucose 121 H Random Glucose Calcium Magnesium Total Bilirubin Direct Bilirubin AST ALT Alkaline Phosphatase Total Protein Albumin Lipase Beta HCG, Quant Urine Color YELLOW Urine Appearance HAZY Urine pH 6.5 Ur Specific [place] <= 1.005 Urine Protein NEG Urine Glucose (UA) >=1000 H Urine Ketones NEG Urine Blood NEG Urine Nitrite NEG Ur Leukocyte Esterase TRACE H Urine RBC 1-4 Urine WBC 1-4 Ur Squamous Epith Cells 3+ Urine Bacteria TRACE Urine Yeast 1+ Urine Opiates Screen Urine Fentanyl Screen Ur Barbiturates Screen Ur Phencyclidine Scrn Ur Amphetamines Screen U Benzodiazepines Scrn Urine Cocaine Screen U Marijuana (THC) Screen COVID-19 (ALEX) COVID-19 Clin Com Imaging Radiologist's Impressions: Impressions Chest X-Ray 09/12/21 13:25 IMPRESSION: No acute disease. Head CT 09/12/21 14:54 IMPRESSION: No acute intracranial pathology. Brain MRI 09/12/21 18:19 IMPRESSION: 1. Potential punctate acute infarct of the right cerebellar tonsil. 2. No additional acute intracranial abnormalities. 3. Nonspecific minimal scattered white matter changes. Assessment and Plan (1) Cerebellar stroke: Status: Acute Plan 40-year-old female with past medical history of HTN, diabetes, presents to the hospital with CVA found to have punctate acute infarct of the right cerebellar tonsil # CVA - acute - outside of [place] - risk factors include DM, HTN - Will start on ASA, statin high dose - Echocardiogram - telemetry - Neurology consulted - PT/OT # DM - LDSSI - Diabetic diet # HTN - Stable - Continue home meds # anxiety and depression - continue home meds #Asthma - not in exacerbation - continue home inhalers DVT prophylaxis: Lovenox Quality Stroke Does the patient have a stroke diagnosis?: No VTE Prior VTE?: No VTE Risk Level:: Medical - moderate - high VTE Device Contraindication: Treatment Not Indicated VTE Drug Contraindication: N/A - Med Ordered
[2021-09-12] MEDS: Enoxaparin Sodium 40 MG/0.4 ML SYRINGE SUBCUT (20:48)
[2021-09-12] MEDS: Aspirin Enteric Coated 81 MG TABLET.DR PO (20:48)
[2021-09-12 21:00] LABS: Cholesterol 262 mg/dL; HDL Cholesterol 41 mg/dL; LDL Cholesterol Calculated 168 mg/dl; Triglycerides 267 mg/dL
[2021-09-12] MEDS: Gabapentin 100 MG CAPSULE PO (21:41)
[2021-09-12] MEDS: Insulin Glargine,Hum.rec.anlog 100 UNIT/ML 10 ML VIAL 25 UNIT SUBCUT (21:41)
[2021-09-12] MEDS: cloNIDine HCL 0.2 MG TABLET PO (21:41)
[2021-09-12] MEDS: Atorvastatin Calcium 80 MG TABLET PO (21:41)
[2021-09-12] MEDS: clonazePAM 1 MG TABLET PO (21:41)
[2021-09-12] MEDS: traZODone HCL 100 MG TABLET PO (21:41)
[2021-09-12] MEDS: QUEtiapine Fumarate 100 MG TABLET PO (22:11)
[2021-09-12] MEDS: QUEtiapine Fumarate 400 MG TABLET PO (22:12)
[2021-09-12] MEDS: Butalb/Acetamin/Caff 50/325/40 TABLET 2 TAB PO (22:12)
[2021-09-13] VITALS (8 sets, daily range): BP systolic 113–132; BP diastolic 58–78; PULSE 67–101; RESP 18–20; TEMP 36.4–36.9; O2SAT 94–98
[2021-09-13 00:01] LABS: Glucose, Whole Blood 161 mg/dL (60-115)
--- NOTE | 2021-09-13 00:45 | PC.NURSE ---
Patient alert and oriented x 3. Patient ambulated to bathroom multiple times today. Patient c/o headache 11/26 medicated with relief. Patient now sleeping. Blood sugars are controlled. tele: sinus rythym Will continue to monitor.
[2021-09-13 06:02] LABS: MANUAL DIFF FLAG NO
[2021-09-13 06:05] LABS: Basophils Absolute Auto 0.1 X10*3/uL (0.0-0.2); Basophils Percent Auto 0.5 % (0-2); Eosinophils Absolute Auto 0.3 X10*3/uL (0.0-0.4); Eosinophils Percent Auto 2.7 % (0-4); Hematocrit 41.5 % (37.0-47.0); Hemoglobin 13.5 g/dl (12.0-16.0); Imm Gran Pct Auto 0.9 % (0.0-0.4); Lymphocytes Absolute Auto 3.4 X10*3/uL (1.2-4.9); Lymphocytes Percent Auto 30.9 % (20-40); Mean Corpuscular HGB Conc 32.5 g/dl (31.0-35.0); Mean Corpuscular Hemoglobin 29.4 pg (27.0-33.0); Mean Corpuscular Volume 90.4 fL (80.0-98.0); Mean Platelet Volume 10.4 fL (9.4-12.3); Monocytes Absolute Auto 0.9 X10*3/uL (0.1-1.2); Monocytes Percent Auto 8.5 % (2-11); Neutrophils Absolute Auto 6.2 x10*3/uL (2.0-8.3); Neutrophils Percent Auto 56.5 % (45-73); Platelet Count 222 X10*3/uL (160-400); Red Blood Count 4.59 X10*6/uL (4.20-5.50); Red Cell Distribution Width 13.2 % (11.0-16.0); White Blood Count 10.9 X10*3/uL (4.8-10.8)
[2021-09-13 06:53] LABS: Anion Gap 11 (12-20); Blood Urea Nitrogen 5 mg/dL (9-16); Calcium 8.6 mg/dL (8.4-10.2); Carbon Dioxide 25 mmol/L (22-29); Chloride 104 mmol/L (96-108); Creatinine Clr Calc Pharmacy 118.3; Estimated Glomerular Filt Rate > 60; Glucose Random 204 mg/dL (60-115); Potassium 3.6 mmol/L (3.3-5.1); Sodium 136 mmol/L (135-145)
[2021-09-13 07:16] LABS: Glucose, Whole Blood 179 mg/dL (60-115)
[2021-09-13] MEDS: 0.9 % Sodium Chloride Flush 3 ML SYRINGE IVFLUSH ×3 (08:23→20:28)
[2021-09-13] MEDS: Gabapentin 100 MG CAPSULE PO ×2 (08:23→20:26)
[2021-09-13] MEDS: Omeprazole 20 MG CAPSULE.DR PO (08:23)
[2021-09-13] MEDS: cloNIDine HCL 0.2 MG TABLET PO (08:24)
[2021-09-13] MEDS: clonazePAM 1 MG TABLET PO ×2 (08:24→20:27)
[2021-09-13] MEDS: Aspirin Enteric Coated 81 MG TABLET.DR PO (08:24)
[2021-09-13] MEDS: Insulin Glargine,Hum.rec.anlog 100 UNIT/ML 10 ML VIAL 25 UNIT SUBCUT (08:28)
[2021-09-13] MEDS: Venlafaxine HCl ER 150 MG CAP.ER.24H 300 MG PO (08:28)
[2021-09-13] MEDS: Insulin Lispro 100 UNIT/ML 3 ML VIAL SUBCUT ×4 (08:28→20:27)
--- NOTE | 2021-09-13 08:32 | MHC.CM.PN ---
CM met with Patient at bedside and addressed POLLOCK with her, providing her with the original and placing a copy on the chart. Patient lives in a house with her Fiance and her 2 children ages 3 and 12 years of age. Home/no services is the goal and CM has initiated and will follow for dc planning. Patient has received Pfizer/Covid vax X3 and her PCP is Dr. Gurdeep Villarreal.
[2021-09-13 11:21] LABS: Glucose, Whole Blood 268 mg/dL (60-115)
--- NOTE | 2021-09-13 13:53 | MHC.CM.PN ---
Patient has been changed from OBSERVATION TO INPATIENT; CM met with Patient at bedside and addressed IMM with her (providing her with the original and placing a copy on the chart).
--- NOTE | 2021-09-13 14:01 | P.CNNE_ITS ---
History of Present Illness Data of Consult Service Date: 09/13/21 Primary Care Provider: Gurdeep Villarreal MD HPI Reason for consult: Headache and unsteadiness 40 years old woman with underlying history of migraine headache managed by Dr. Kayli Frazier by [facility]. She came to hospital when she woke up with ri ght arm numbness right-sided facial swelling and the right eye droopiness. Numbness lasted for couple of hours. She was also having a headache. She decided to come to hospital when she was bumping into things and was unsteady. Review of Systems Review of Systems: No recent cold or flu-like illness PMFSH Past Medical History Medical History Anxiety and depression Asthma Crohn's disease GERD (gastroesophageal reflux disease) Hypercholesterolemia Hypertension IBS (irritable bowel syndrome) Migraine Obesity (BMI 30-39.9) OCD (obsessive compulsive disorder) Panic disorder PTSD (post-traumatic stress disorder) Seizure disorder Tobacco abuse Type 2 diabetes mellitus with hyperglycemia, with long-term current use of insulin Family History Family History Father CVD (cerebrovascular disease) Diabetes Hypertension Mother Depression Chronic mental illness Maternal Grandmother Myocardial infarction CVD (cerebrovascular disease) Breast cancer Maternal Aunt Liver cancer Surgical History Surgical History H/O arthroscopy H/O bilateral breast reduction surgery History of ankle surgery Previous section Social History Social History Housing: Apartment Alcohol intake: never Patient Tobacco Use Status: Current everyday Tobacco user Tobacco use type: Cigarette Cigarettes Per Day: 5 Smoked in Last 30 Days: Yes e-Cigarette/Vaping Use: Never Used Use of substances other than those prescribed or required for medical reasons: Yes Substance Use Type: Marijuana Advance Directives: No Advance Directives Information Provided: No Patient : No service: No Current occupational status: unemployed Current occupation: left handed Cognitive needs: Yes Hearing needs: No Vision needs: Yes Meds Allergies Allergy/AdvReac Type Severity Reaction Status Date / Time morphine [MORPHINE] Allergy Intermediate NAUSEA, Verified 09/12/21 12:01 rash oxycodone [From PERCOCET] Allergy Intermediate ITCHY, rash Verified 09/12/21 12:01 penicillin V Allergy Intermediate hives Verified 09/12/21 12:01 simvastatin Allergy Intermediate rash Verified 09/12/21 12:01 hydrocodone [From VICODIN] Allergy Mild RASH Verified 09/12/21 12:01 amoxicillin [Amoxicillin] Allergy Unknown UNKNOWN Verified 09/12/21 12:01 Active Medications: Current Medications Acetaminophen (Acetaminophen 325 Mg Tablet) 650 mg PO Q6H PRN PRN Reason: Pain, Mild (Pain Scale 1-3) Albuterol Sulfate (Albuterol Sulfate 90 Mcg 8 Gm Inhaler) 2 puff INHALE RQ6H PRN PRN Reason: shortness of breath or wheezing Aspirin (Aspirin Enteric Coated 81 Mg Tablet.Dr) 81 mg PO DAILY [facility] Last Admin: 09/13/21 08:24 Dose: 81 mg Atorvastatin Calcium (Atorvastatin Calcium 80 Mg Tablet) 80 mg PO BEDTIME [facility] Last Admin: 09/12/21 21:41 Dose: 80 mg Clonazepam (Clonazepam 1 Mg Tablet) 1 mg PO BID [facility] Last Admin: 09/13/21 08:24 Dose: 1 mg Clonidine HCl (Clonidine Hcl 0.2 Mg Tablet) 0.2 mg PO DAILY [facility]; Protocol Last Admin: 09/13/21 08:24 Dose: 0.2 mg Dextrose (Dextrose 50 % 25 Gm/50 Ml Syringe) 25 gm IVPUSH Q15M PRN; Protocol PRN Reason: per Hypoglycemia Standing Ord. Docusate Sodium (Docusate Sodium 100 Mg Capsule) 100 mg PO DAILY PRN PRN Reason: Constipation Enoxaparin Sodium (Enoxaparin Sodium 40 Mg/0.4 Ml Syringe) 40 mg SUBCUT Q24H [facility] Last Admin: 09/12/21 20:48 Dose: 40 mg Gabapentin (Gabapentin 100 Mg Capsule) 100 mg PO BID [facility] Last Admin: 09/13/21 08:23 Dose: 100 mg Glucose (Glucose Gel 15 Gm Gel..Gram.) 15 gm PO Q15M PRN; Protocol PRN Reason: per Hypoglycemia Standing Ord. Insulin Glargine (Insulin Glargine,Hum.Rec.Anlog 100 Unit/Ml 10 Ml Vial) 25 unit SUBCUT DAILY [facility] Last Admin: 09/13/21 08:28 Dose: 25 unit Insulin Human Lispro (Insulin Lispro 100 Unit/Ml 3 Ml Vial) 0 unit SUBCUT QIDACHS [facility]; Protocol Last Admin: 09/13/21 11:29 Dose: 6 unit Omeprazole (Omeprazole 20 Mg Capsule.Dr) 20 mg PO DAILY [facility] Last Admin: 09/13/21 08:23 Dose: 20 mg Ondansetron HCl (Ondansetron Hcl 4 Mg/2 Ml Vial) 4 mg IVPUSH Q8H PRN PRN Reason: Nausea and Vomiting Pharmacy Consult (Consult Rx Perform Med Rec) 1 each MISCELLANE ONCE PRN PRN Reason: Consult order Quetiapine Fumarate (Quetiapine Fumarate 100 Mg Tablet) 100 mg PO BEDTIME [facility] Last Admin: 09/12/21 22:11 Dose: 100 mg Quetiapine Fumarate (Quetiapine Fumarate 400 Mg Tablet) 400 mg PO BEDTIME [facility] Last Admin: 09/12/21 22:12 Dose: 400 mg Sodium Chloride (0.9 % Sodium Chloride Flush 3 Ml Syringe) 3 ml IVFLUSH QSHIFT [facility] Last Admin: 09/13/21 08:23 Dose: 3 ml Trazodone HCl (Trazodone Hcl 100 Mg Tablet) 100 mg PO BEDTIME [facility] Last Admin: 09/12/21 21:41 Dose: 100 mg Venlafaxine HCl (Venlafaxine Hcl Er 150 Mg Cap.Er.24h) 300 mg PO DAILY [facility] Last Admin: 09/13/21 08:28 Dose: 300 mg Home Medications Medication Instructions Recorded Confirmed Last Taken Type clonazepam 1 mg tablet 1 mg PO BID 12/31/19 09/12/21 Unknown History venlafaxine 150 mg 300 mg PO DAILY 06/01/20 09/12/21 Unknown History capsule,extended release 24 hr (Effexor XR) clonidine HCl 0.2 mg tablet 0.2 mg PO DAILY 08/07/21 09/12/21 Unknown History insulin glargine 100 unit/mL (3 25 unit subcut QAM 09/12/21 09/12/21 Unknown History mL) subcutaneous pen (Lantus Solostar U-100 Insulin) meloxicam 7.5 mg tablet (Mobic) 1 tab PO DAILY 09/12/21 09/12/21 Unknown History quetiapine 100 mg tablet 1 tab PO BEDTIME 09/12/21 09/12/21 Unknown History quetiapine 400 mg tablet (Seroquel) 1 tab PO BEDTIME 09/12/21 09/12/21 Unknown History trazodone 50 mg tablet 2 tab PO BEDTIME 09/12/21 09/12/21 Unknown History Physical Exam Vital Signs: Vital Signs: Last Vital Signs Temp 97.7 F 09/13/21 11:34 Pulse 88 09/13/21 11:34 Resp 20 09/13/21 11:34 BP 119/74 09/13/21 11:34 Pulse Ox 94 09/13/21 11:34 O2 Del Method 09/13/21 11:34 BMI result Body Mass Index 38.9 Neuro: Other: She is alert and awake with normal spontaneity of speech fluency comprehension and affect. Both pupils are round but right pupil is slightly larger than left both and demand bright light and there is mild right-sided ptosis. There is mild right facial weakness when she smiled. Tongue is midline. There is mild right pronator drift. Deep tendon reflexes are absent with flat plantars. Results Labs CBC & Chem 7: 09/13/21 05:50 09/13/21 05:50 Labs: Short CBC 09/13/21 Range/Units 05:50 WBC 10.9 H (4.8-10.8) X10*3/uL Hgb 13.5 (12.0-16.0) g/dl Hct 41.5 (37.0-47.0) % Plt Count 222 (160-400) X10*3/uL BMP 09/13/21 05:50 Sodium 136 Potassium 3.6 Chloride 104 Carbon Dioxide 25 BUN 5 L Creatinine 0.64 Calcium 8.6 Liver Function 09/12/21 Range/Units 12:14 Total Bilirubin < 0.2 (0.0-1.0) mg/dL Direct Bilirubin < 0.2 (0.0-0.5) mg/dL AST 39 H D (5-31) U/L ALT 30 (0-31) U/L Alkaline Phosphatase 82 (39-117) U/L Albumin 3.8 (3.5-5.0) g/dL Urine 09/12/21 Range/Units 15:12 Urine Color YELLOW Urine Appearance HAZY Urine pH 6.5 (5.0-8.0) Ur Specific [place] <= 1.005 (1.005-1.025) Urine Protein NEG (NEG-TRACE) MG/DL Urine Glucose (UA) >=1000 H (NEG) MG/DL MRI of brain revealed a punctate area of restricted diffusion in right mid cerebellum. Otherwise there was no significant acute or chronic lesion. CTA of brain and neck did not reveal any aneurysm. Narrowing of left superior cerebellar artery was noted Assessment and Plan (1) Right sided weakness: Status: Acute 40 years old woman who probably was having a complicated migraine. There is also possibility of a chemical induced cerebral vasoconstrictive syndrome. The reason for that is that she has a tiny right cerebellar ischemic lesion, left superior cerebellar artery narrowing, which could be spasm, and right arm and face weakness which are not explain otherwise. At the same time she has significant vascular risk factors including hypertension and hyperlipidemia and complicated migraine with obesity. My recommendations are as follows: 1. Baby aspirin daily 2. Statin, 3. Verapamil 40 mg twice a day for blood pressure migraine control 4. Sugar control 5. Weight reduction 6. Complete avoidance of all drug abuse including marijuana and [id number] medicines and 7. Proper reassurance and education about stroke risk factors and the control, 8. Fioricet p.r.n. for headache pain control. She can follow-up with her outpatient neurologist. Procedures Date of Service Date of Service: 09/13/21
[2021-09-13] MEDS: Butalb/Acetamin/Caff 50/325/40 TABLET 1 TAB PO (15:08)
--- NOTE | 2021-09-13 15:11 | P.PNIM_ITS ---
Subjective Subjective Date of Service: 09/13/21 Interval History: Seen and examined this morning Follow-up for possible stroke Reporting numbness to small area on forehead, some numbness to right arm and headache slow to respond to questions, poor eye contact Review of Systems Review of Systems: Yes all other systems are reviewed and are negative Constitutional Constitutional: Denies chills and Denies fever(s) ENT Ears, Nose, Mouth, and Throat: Reports dizziness Cardiovascular Cardiovascular: Denies chest pain, Denies palpitations and Denies dyspnea Respiratory Respiratory: Denies cough and Denies dyspnea Neurologic Neurologic: Reports dizziness Endocrine Endocrine: Denies palpitations Physical Exam Vital Signs: Vital Signs: Last Vital Signs Temp 97.7 F 09/13/21 11:34 Pulse 88 09/13/21 11:34 Resp 20 09/13/21 11:34 BP 119/74 09/13/21 11:34 Pulse Ox 94 09/13/21 11:34 O2 Del Method 09/13/21 11:34 BMI result Body Mass Index 38.9 Const: General: no acute distress, alert and awake Nutritional Appearance: overweight Orientation/consciousness: patient oriented x3 Resp: Effort & Inspection: normal respiratory effort and able to speak in complete sentences Auscultation: clear to auscultation bilaterally Cardio: Rate: regular rate Heart sounds: S1 normal heart sound present and S2 normal heart sound present GI: Inspection: No distended Palpation (GI): Soft to palpation and no ntender Neuro: Other: right mild facial droop General: patient oriented x3 Cranial nerves: Yes Midline tongue present Motor exam (neuro): no tremor noted Objective Data Active Medications Acetaminophen (Acetaminophen 325 Mg Tablet) 650 mg PO Q6H PRN PRN Reason: Pain, Mild (Pain Scale 1-3) Acetaminophen/Butalbital/Caffeine (Butalb/Acetamin/Caff 50/325/40 Tablet) 1 tab PO Q4H PRN PRN Reason: Headache Last Admin: 09/13/21 15:08 Dose: 1 tab Documented By: ALVAREZ Albuterol Sulfate (Albuterol Sulfate 90 Mcg 8 Gm Inhaler) 2 puff INHALE RQ6H RI N PRN Reason: shortness of breath or wheezing Aspirin (Aspirin Enteric Coated 81 Mg Tablet.) 81 mg PO DAILY [facility] Last Admin: 09/13/21 08:24 Dose: 81 mg Documented By: ALVAREZ Atorvastatin Calcium (Atorvastatin Calcium 80 Mg Tablet) 80 mg PO BEDTIME [facility] Last Admin: 09/12/21 21:41 Dose: 80 mg Documented By: ATTILA Clonazepam (Clonazepam 1 Mg Tablet) 1 mg PO BID [facility] Last Admin: 09/13/21 08:24 Dose: 1 mg Documented By: ALVAREZ Clonidine HCl (Clonidine Hcl 0.2 Mg Tablet) 0.2 mg PO DAILY [facility]; Protocol Last Admin: 09/13/21 08:24 Dose: 0.2 mg Documented By: ALVAREZ Dextrose (Dextrose 50 % 25 Gm/50 Ml Syringe) 25 gm IVPUSH Q15M PRN; Protocol PRN Reason: per Hypoglycemia Standing Ord. Docusate Sodium (Docusate Sodium 100 Mg Capsule) 100 mg PO DAILY PRN PRN Reason: Constipation Enoxaparin Sodium (Enoxaparin Sodium 40 Mg/0.4 Ml Syringe) 40 mg SUBCUT Q24H [facility] Last Admin: 09/12/21 20:48 Dose: 40 mg Documented By: ATTILA Gabapentin (Gabapentin 100 Mg Capsule) 100 mg PO BID [facility] Last Admin: 09/13/21 08:23 Dose: 100 mg Documented By: ALVAREZ Glucose (Glucose Gel 15 Gm Gel..Gram.) 15 gm PO Q15M PRN; Protocol PRN Reason: per Hypoglycemia Standing Ord. Insulin Glargine (Insulin Glargine,Hum.Rec.Anlog 100 Unit/Ml 10 Ml Vial) 25 unit SUBCUT DAILY [facility] Last Admin: 09/13/21 08:28 Dose: 25 unit Documented By: ALVAREZ Insulin Human Lispro (Insulin Lispro 100 Unit/Ml 3 Ml Vial) 0 unit SUBCUT QIDACHS [facility]; Protocol Last Admin: 09/13/21 11:29 Dose: 6 unit Documented By: ALVAREZ Omeprazole (Omeprazole 20 Mg Capsule.) 20 mg PO DAILY [facility] Last Admin: 09/13/21 08:23 Dose: 20 mg Documented By: ALVAREZ Ondansetron HCl (Ondansetron Hcl 4 Mg/2 Ml Vial) 4 mg IVPUSH Q8H PRN PRN Reason: Nausea and Vomiting Pharmacy Consult (Consult Rx Perform Med Rec) 1 each MISCELLANE ONCE PRN PRN Reason: Consult order Quetiapine Fumarate (Quetiapine Fumarate 100 Mg Tablet) 100 mg PO BEDTIME [facility] Last Admin: 09/12/21 22:11 Dose: 100 mg Documented By: ATTILA Quetiapine Fumarate (Quetiapine Fumarate 400 Mg Tablet) 400 mg PO BEDTIME [facility] Last Admin: 09/12/21 22:12 Dose: 400 mg Documented By: ATTILA Sodium Chloride (0.9 % Sodium Chloride Flush 3 Ml Syringe) 3 ml IVFLUSH QSHIFT [facility] Last Admin: 09/13/21 08:23 Dose: 3 ml Documented By: ALVAREZ Trazodone HCl (Trazodone Hcl 100 Mg Tablet) 100 mg PO BEDTIME [facility] Last Admin: 09/12/21 21:41 Dose: 100 mg Documented By: ATTILA Venlafaxine HCl (Venlafaxine Hcl Er 150 Mg Cap.Er.24h) 300 mg PO DAILY [facility] Last Admin: 09/13/21 08:28 Dose: 300 mg Documented By: TOM Labs CBC & Chem 7: 09/13/21 05:50 09/13/21 05:50 Labs: Laboratory Results - last 24 hr 09/12/21 09/12/21 09/12/21 12:14 13:54 15:12 MCV MCH MCHC RDW Plt Count MPV Immature Gran % (Auto) Neut % (Auto) Lymph % (Auto) [place] % (Auto) Eos % (Auto) Baso % (Auto) Lymph # (Auto) [place] # (Auto) Eos # (Auto) Baso # (Auto) Abs Immat Gran (auto) Absolute Neuts (auto) Absolute Nucleated RBC Nucleated RBC % (auto) Anion Gap Estim Creat Clear Calc Estimated GFR POC Glucose Random Glucose Calcium Magnesium 1.6 Total Bilirubin < 0.2 Direct Bilirubin < 0.2 AST 39 H D ALT 30 Alkaline Phosphatase 82 Total Protein 7.4 Albumin 3.8 Triglycerides 267 Cholesterol 262 LDL Cholesterol, Calc 168 HDL Cholesterol 41 Lipase 61 Urine Color Urine Appearance Urine pH Ur Specific [place] Urine Protein Urine Glucose (UA) Urine Ketones Urine Blood Urine Nitrite Ur Leukocyte Esterase Urine RBC Urine WBC Ur Squamous Epith Cells Urine Bacteria Urine Yeast Urine Opiates Screen Not Detected Urine Fentanyl Screen Not Detected Ur Barbiturates Screen POSITIVE H Ur Phencyclidine Scrn Not Detected Ur Amphetamines Screen Not Detected U Benzodiazepines Scrn Not Detected Urine Cocaine Screen Not Detected U Marijuana (THC) Screen POSITIVE H 09/12/21 09/12/21 09/12/21 15:12 18:56 23:55 MCV MCH MCHC RDW Plt Count MPV Immature Gran % (Auto) Neut % (Auto) Lymph % (Auto) [place] % (Auto) Eos % (Auto) Baso % (Auto) Lymph # (Auto) [place] # (Auto) Eos # (Auto) Baso # (Auto) Abs Immat Gran (auto) Absolute Neuts (auto) Absolute Nucleated RBC Nucleated RBC % (auto) Anion Gap Estim Creat Clear Calc Estimated GFR POC Glucose 121 H 161 H Random Glucose Calcium Magnesium Total Bilirubin Direct Bilirubin AST ALT Alkaline Phosphatase Total Protein Albumin Triglycerides Cholesterol LDL Cholesterol, Calc HDL Cholesterol Lipase Urine Color YELLOW Urine Appearance HAZY Urine pH 6.5 Ur Specific [place] <= 1.005 Urine Protein NEG Urine Glucose (UA) >=1000 H Urine Ketones NEG Urine Blood NEG Urine Nitrite NEG Ur Leukocyte Esterase TRACE H Urine RBC 1-4 Urine WBC 1-4 Ur Squamous Epith Cells 3+ Urine Bacteria TRACE Urine Yeast 1+ Urine Opiates Screen Urine Fentanyl Screen Ur Barbiturates Screen Ur Phencyclidine Scrn Ur Amphetamines Screen U Benzodiazepines Scrn Urine Cocaine Screen U Marijuana (THC) Screen 09/13/21 09/13/21 09/13/21 05:50 05:50 07:12 MCV 90.4 MCH 29.4 MCHC 32.5 RDW 13.2 Plt Count 222 MPV 10.4 Immature Gran % (Auto) 0.9 H Neut % (Auto) 56.5 Lymph % (Auto) 30.9 [place] % (Auto) 8.5 Eos % (Auto) 2.7 Baso % (Auto) 0.5 Lymph # (Auto) 3.4 [place] # (Auto) 0.9 Eos # (Auto) 0.3 Baso # (Auto) 0.1 Abs Immat Gran (auto) 0.10 H Absolute Neuts (auto) 6.2 Absolute Nucleated RBC 0.000 Nucleated RBC % (auto) 0.0 Anion Gap 11 L Estim Creat Clear Calc 118.3 Estimated GFR > 60 POC Glucose 179 H Random Glucose 204 H Calcium 8.6 Magnesium Total Bilirubin Direct Bilirubin AST ALT Alkaline Phosphatase Total Protein Albumin Triglycerides Cholesterol LDL Cholesterol, Calc HDL Cholesterol Lipase Urine Color Urine Appearance Urine pH Ur Specific [place] Urine Protein Urine Glucose (UA) Urine Ketones Urine Blood Urine Nitrite Ur Leukocyte Esterase Urine RBC Urine WBC Ur Squamous Epith Cells Urine Bacteria Urine Yeast Urine Opiates Screen Urine Fentanyl Screen Ur Barbiturates Screen Ur Phencyclidine Scrn Ur Amphetamines Screen U Benzodiazepines Scrn Urine Cocaine Screen U Marijuana (THC) Screen 09/13/21 11:05 MCV MCH MCHC RDW Plt Count MPV Immature Gran % (Auto) Neut % (Auto) Lymph % (Auto) [place] % (Auto) Eos % (Auto) Baso % (Auto) Lymph # (Auto) [place] # (Auto) Eos # (Auto) Baso # (Auto) Abs Immat Gran (auto) Absolute Neuts (auto) Absolute Nucleated RBC Nucleated RBC % (auto) Anion Gap Estim Creat Clear Calc Estimated GFR POC Glucose 268 H Random Glucose Calcium Magnesium Total Bilirubin Direct Bilirubin AST ALT Alkaline Phosphatase Total Protein Albumin Triglycerides Cholesterol LDL Cholesterol, Calc HDL Cholesterol Lipase Urine Color Urine Appearance Urine pH Ur Specific [place] Urine Protein Urine Glucose (UA) Urine Ketones Urine Blood Urine Nitrite Ur Leukocyte Esterase Urine RBC Urine WBC Ur Squamous Epith Cells Urine Bacteria Urine Yeast Urine Opiates Screen Urine Fentanyl Screen Ur Barbiturates Screen Ur Phencyclidine Scrn Ur Amphetamines Screen U Benzodiazepines Scrn Urine Cocaine Screen U Marijuana (THC) Screen Assessment and Plan (1) Cerebellar stroke: Status: Acute Plan 40-year-old female with past medical history of HTN, diabetes, presents to the hospital with CVA found to have punctate acute infarct of the right cerebellar tonsil Right side weakness MRI showing tiny right cerebellar ischemic lesion seen by neuro - ? complicated migraine versus chemical induced cerebral vasoconstrictive syndrome - neuro recommends: ASA, statin, verapamil 40 bidfor migraine control and prn fioricet for headache pain control as well as control of vascular risk factors - Echocardiogram with bubble study pending - telemetry - seen by PT - rec acute rehab DM Jardiance on hold - SSI - Diabetic diet mood - continue home meds Asthma - not in exacerbation - continue home inhalers DVT prophylaxis:? Loretta attending - dr. kauffman patient requires ongoing inpatient hospitalization for stroke workup Quality Stroke Does the patient have a stroke diagnosis?: No VTE Prior VTE?: No VTE Risk Level:: Medical - moderate - high VTE Device Contraindication: Treatment Not Indicated VTE Drug Contraindication: N/A - Med Ordered
--- NOTE | 2021-09-13 15:51 | MHC.CM.PN ---
CM met with Patient to discuss PT's recommendation for Inpatient Acute Rehab and all 3 Acute Rehabs in this area([place] [place] [facility]) would have a bed for her. Per Patient's request, CM also spoke with Patient's Mother on speaker phone, who pointed out that it would be difficult for Patient to be away at rehab because she has young children and her Patient's Fiance needs to work and it would be confusing for the children for her to be away. CM relayed this conversation to PT (Carmel) and VIRI/Kandace and per PA, will ask PT to re-eval Patient in the morning for any improved functional status/nrec recommendations. CM will follow.
[2021-09-13 15:55] LABS: Glucose, Whole Blood 204 mg/dL (60-115)
--- NOTE | 2021-09-13 16:32 | MHC.STROKE ---
09/12/21 1152 WALK-IN C/O RIGHT SIDED WEAKNESS/NUMBNESS, POPE, DROOPY RIGHT EYE SINCE THE PREVIOUS DAY 09/10/21 NO EXACT TIME. OUT OF THE WINDOW FOR TPA-ALTEPLASE. VERIFIED THAT SHE PASSED SWALLOW SCREEN IN ED PRIOR TO PO. CT HEAD, CTA H/N AND MRI DONE. MRI REPORT REVEALED POTENTIAL PUNCTATE LESION IN RIGHT CEREBELLAR TONSIL. SEE DR. VALERA'S NOTE. I REVIEWED HER PMH AND STROKE RISK FACTORS. HTN, SEIZURES, SHE HAS BEEN DIABETIC SINCE THE OF HER CHILDREN, MIGRAINES, SMOKER (DISCUSSED AND COUNSELED ON SMOKING CESSATION AND SHE WILL TRY TO QUIT BUT DOES NOT WANT ANY PATCH). OBESITY AND HIGH CHOLESTEROL, I REVIEWED ALL OF HER CHOLESTEROL PANEL WITH HER AND WROTE THE NUMBERS DOWN, SHE IS NOW ON A STATIN AND UNDERSTANDS WHY, SHE HAS DEPRESSION AND STRESS, HER SON'S FATHER IS CAUSING HER EXTRA STRESS AND PTSD, I PROVIDED REASSURANCE. WE TALKED ABOUT REHAB AND SHE PREFERS TO COME IN AN OUTPATIENT. I REVIEWED THE STROKE EDUCATION BOOKLET, POWERPOINT SLIDES, MRI SCREENSHOT OF STROKE LESION. ANSWERED HER QUESTIONS. I WILL ROUND ON HER IN THE MORNING AND SEE IF SHE NEEDS ANYTHING ELSE.
[2021-09-13] MEDS: Cyclobenzaprine HCl 5 MG TABLET PO (18:33)
[2021-09-13 19:58] LABS: Glucose, Whole Blood 178 mg/dL (60-115)
[2021-09-13] MEDS: Atorvastatin Calcium 80 MG TABLET PO (20:26)
[2021-09-13] MEDS: traZODone HCL 100 MG TABLET PO (20:26)
[2021-09-13] MEDS: QUEtiapine Fumarate 400 MG TABLET PO (20:27)
[2021-09-13] MEDS: QUEtiapine Fumarate 100 MG TABLET PO (20:27)
[2021-09-13] MEDS: VerapamiL HCL 40 MG TABLET PO (20:27)
[2021-09-13] MEDS: Enoxaparin Sodium 40 MG/0.4 ML SYRINGE SUBCUT (20:33)
[2021-09-14 04:00] VITALS: BP 141/70; PULSE 84; RESP 18; TEMP 37; O2SAT 97
--- NOTE | 2021-09-14 07:00 | CA_ITS ---
Transthoracic Echocardiogram Patient (Last, First, Middle): Darlene Godfrey D Gender: Female Date of : 1980 Age: 40 Procedure Date: 09/14/2021 Procedure Type: Transthoracic Echocardiogram Location: [facility] [place] Height: 152.4 cm Weight: 84.37 kg BSA: 1.81 m2 Heart Rate: 98 bpm BP: 134 / 80 mmHg Generator Repairer: Referring MD: Kandace MEREDITH Symptoms: stroke protocol Study Quality: Adequate ECG Rhythm: Sinus Conclusions: - The left ventricular systolic function is normal. The calculated ejection fraction is 60% by biplane method. - There is no evidence of interatrial shunt by agitated saline. - No obvious valvular pathology seen on this study. Findings Left Ventricle Normal left ventricular cavity size. There is mildly increased left ventricular wall thickness. The left ventricular systolic function is normal. The calculated ejection fraction is 60% by biplane method. There is no evidence of regional wall motion abnormalities. Diastolic function is normal for age. Right Ventricle Normal right ventricular cavity size and systolic function. Atria Both atria are normal in size. There is no evidence of interatrial shunt by agitated saline. (rest and valsalva). Aortic Valve There is a normal trileaflet aortic valve. There is no aortic valve stenosis. There is no aortic valve regurgitation. Mitral Valve The mitral valve appears normal. There is no mitral valve regurgitation. There is no mitral valve stenosis. Pulmonic Valve The pulmonic valve is likely normal. Tricuspid Valve Normal tricuspid valve structure. There is trace tricuspid valve regurgitation. The pulmonary artery systolic pressure is normal. Great Vessels The aortic annulus, sinuses of valsalva, and asc aorta are normal in size. Venous The inferior vena cava is normal in size and collapses greater than 50% with inspiration. Pericardium/Pleural There is no evidence of pericardial effusion. Prior Study Comparison No prior study available for comparison. Recommendations, Care & Conclusions No obvious valvular pathology seen on this study. Measurements 2D Linear Measurements IVSd: 1.26 0.6-0.9/0.6-1.0 cm LVIDd: 3.95 3.9-5.3/4.2-5.9 cm LVIDd Index: 2.18 2.4-3.2/2.2-3.1 cm/m2 LVIDs: 2.31 2.0-3.6 cm LVPWd: 1.28 0.7-1.1 cm Ao Root: 2.80 2.1-3.5 cm LA Diam: 3.70 2.7-3.8/3.0-4.0 cm LAIDs Index: 2.04 1.5-2.3 cm/m2 LV Mass: 220.20 67-162/88-224 g LV Mass Index: 121.66 43-95/49-115 g/m2 LVOT Diam: 2.00 3.0+(-)1.3 cm 2D Systolic Function EF 4C: 61.30 >55% EF 2C: 57.70 >55% EF BiP: 60.00 >55% Mitral Valve MV Pk E: 0.78 MV PK A: 0.98 MV Decel Time: 133.00 E/A: 0.80 E'Lateral: 13.50 E'Medial: 7.07 E/E' Med: 11.10 E/E' Lat: 5.80 PHT: 39.00 MVA PHT: 5.64 Decel [place]: 5.87 Aortic Valve AoV Pk Shekhar: 1.52 AoV Mn Shekhar: 1.12 AoV VTI: 0.30 AoV Pk Grad: 9.00 Aov Mn Grad: 6.00 SHARI Cont.VTI: 1.78 LVOT LVOT Pk Shekhar: 0.90 LVOT Mn Shekhar: 0.61 LVOT VTI: 0.17 LVOT Pk Grad: 3.00 LVOT Mn Grad: 2.00 LVOT Diam: 2.00 LVOT Area: 3.14 Diastolic Function MV Pk E: 0.78 MV Pk A: 0.98 E/A: 0.80 E'Medial: 7.07 E/E' Med: 11.10 E' Laterial: 13.50 E/E' Lat: 5.80 Right Ventricle TAPSE (mm): 30.10 TVS' Shekhar: 17.40 Tricuspid Valve TR Pk Shekhar: 1.60 TR Pk Grad: 10.00 Great Vessels Aorta Ao Root-2D: 2.80 2.0-3.7 cm Sinus of Valsalva: 2.80 2.0-3.5 cm Ao Asc: 2.90 2.1-3.4 cm Pulmonary Valve PV Pk Shekhar: 1.09 Peak PV Grad: 5.00 Updated in Other Vendor System with Status of Final Adis Jay MD electronically signed on 09/14/2021 1:19:38 PM with status of Final
[2021-09-14 07:29] VITALS: BP 130/81; PULSE 94; RESP 18; TEMP 36.8; O2SAT 94
[2021-09-14 07:37] LABS: Glucose, Whole Blood 229 mg/dL (60-115)
[2021-09-14] MEDS: clonazePAM 1 MG TABLET PO ×2 (08:01→20:51)
[2021-09-14] MEDS: Gabapentin 100 MG CAPSULE PO ×2 (08:01→20:52)
[2021-09-14] MEDS: Venlafaxine HCl ER 150 MG CAP.ER.24H 300 MG PO (08:01)
[2021-09-14] MEDS: cloNIDine HCL 0.2 MG TABLET PO (08:01)
[2021-09-14] MEDS: VerapamiL HCL 40 MG TABLET PO ×2 (08:01→20:51)
[2021-09-14] MEDS: Aspirin Enteric Coated 81 MG TABLET.DR PO (08:02)
[2021-09-14] MEDS: Omeprazole 20 MG CAPSULE.DR PO (08:02)
[2021-09-14] MEDS: 0.9 % Sodium Chloride Flush 3 ML SYRINGE IVFLUSH ×3 (08:05→20:58)
[2021-09-14] MEDS: Insulin Glargine,Hum.rec.anlog 100 UNIT/ML 10 ML VIAL 25 UNIT SUBCUT (08:08)
[2021-09-14] MEDS: Insulin Lispro 100 UNIT/ML 3 ML VIAL SUBCUT ×4 (08:11→20:52)
[2021-09-14 09:48] VITALS: BP 130/81; PULSE 94; O2SAT 94
[2021-09-14 11:09] VITALS: BP 117/71; PULSE 102; RESP 18; TEMP 36.5; O2SAT 98
[2021-09-14 11:36] LABS: Glucose, Whole Blood 242 mg/dL (60-115)
--- NOTE | 2021-09-14 12:36 | MHC.CM.PN ---
PT continues to recommend Acute Rehab and Patient has her choice of all 3 area Acute Rehabs. Per PA, Patient needs an ECHO and PA still wishes to speak with Neurology. CM will follow.
--- NOTE | 2021-09-14 14:08 | HO.PM.IMPN ---
Subjective Subjective Date of Service: 09/14/21 Interval History: Seen and examined this morning Follow-up for possible stroke Headache, right arm tingling resolved, still off balance with ambulation Discussed recommendation for acute rehab, patient does not want to go to rehab, she wants to have home PT Review of Systems Review of Systems: Yes all other systems are reviewed and are negative Constitutional Constitutional: Denies chills and Denies fever(s) Cardiovascular Cardiovascular: Denies chest pain, Denies palpitations and Denies dyspnea Respiratory Respiratory: Denies cough and Denies dyspnea Endocrine Endocrine: Denies palpitations Physical Exam Vital Signs: Vital Signs: Last Vital Signs Temp 97.7 F 09/14/21 11:09 Pulse 102 H 09/14/21 11:09 Resp 18 09/14/21 11:09 BP 117/71 09/14/21 11:09 Pulse Ox 98 09/14/21 11:09 O2 Del Method 09/14/21 11:09 BMI result Body Mass Index 38.9 Const: General: no acute distress, alert and awake Nutritional Appearance: overweight Orientation/consciousness: patient oriented x3 Resp: Effort & Inspection: normal respiratory effort and able to speak in complete sentences Auscultation: clear to auscultation bilaterally Cardio: Rate: regular rate Heart sounds: S1 normal heart sound present and S2 normal heart sound present GI: Inspection: No distended Palpation (GI): Soft to palpation and nontender Neuro: Other: face appears more symmetrical; mild ptosis right eye; strength equal b/l; no pronator drift General: patient oriented x3 and moves all extremities Cranial nerves: Yes Midline tongue present Motor exam (neuro): no tremor noted Objective Data Active Medications Acetaminophen (Acetaminophen 325 Mg Tablet) 650 mg PO Q6H PRN PRN Reason: Pain, Mild (Pain Scale 1-3) Acetaminophen/Butalbital/Caffeine (Butalb/Acetamin/Caff 50/325/40 Tablet) 1 tab PO Q4H PRN PRN Reason: Headache Last Admin: 09/13/21 15:08 Dose: 1 tab Documented By: ALVAREZ Albuterol Sulfate (Albuterol Sulfate 90 Mcg 8 Gm Inhaler) 2 puff INHALE RQ6H PRN PRN Reason: shortness of breath or wheezing Aspirin (Aspirin Enteric Coated 81 Mg Tablet.) 81 mg PO DAILY [facility] Last Admin: 09/14/21 08:02 Dose: 81 mg Documented By: TOM Atorvastatin Calcium (Atorvastatin Calcium 80 Mg Tablet) 80 mg PO BEDTIME [facility] Last Admin: 09/13/21 20:26 Dose: 80 mg Documented By: URIEL Clonazepam (Clonazepam 1 Mg Tablet) 1 mg PO BID [facility] Last Admin: 09/14/21 08:01 Dose: 1 mg Documented By: TOM Clonidine HCl (Clonidine Hcl 0.2 Mg Tablet) 0.2 mg PO DAILY [facility]; Protocol Last Admin: 09/14/21 08:01 Dose: 0.2 mg Documented By: TOM Dextrose (Dextrose 50 % 25 Gm/50 Ml Syringe) 25 gm IVPUSH Q15M PRN; Protocol PRN Reason: per Hypoglycemia Standing Ord. Docusate Sodium (Docusate Sodium 100 Mg Capsule) 100 mg PO DAILY PRN PRN Reason: Constipation Enoxaparin Sodium (Enoxaparin Sodium 40 Mg/0.4 Ml Syringe) 40 mg SUBCUT Q24H [facility] Last Admin: 09/13/21 20:33 Dose: 40 mg Documented By: URIEL Gabapentin (Gabapentin 100 Mg Capsule) 100 mg PO BID [facility] Last Admin: 09/14/21 08:01 Dose: 100 mg Documented By: TOM Glucose (Glucose Gel 15 Gm Gel..Gram.) 15 gm PO Q15M PRN; Protocol PRN Reason: per Hypoglycemia Standing Ord. Insulin Glargine (Insulin Glargine,Hum.Rec.Anlog 100 Unit/Ml 10 Ml Vial) 25 unit SUBCUT DAILY [facility] Last Admin: 09/14/21 08:08 Dose: 25 unit Documented By: TOM Insulin Human Lispro (Insulin Lispro 100 Unit/Ml 3 Ml Vial) 0 unit SUBCUT QIDACHS [facility]; Protocol Last Admin: 09/14/21 13:20 Dose: 1 unit Documented By: TOM Omeprazole (Omeprazole 20 Mg Capsule.) 20 mg PO DAILY [facility] Last Admin: 09/14/21 08:02 Dose: 20 mg Documented By: TOM Ondansetron HCl (Ondansetron Hcl 4 Mg/2 Ml Vial) 4 mg IVPUSH Q8H PRN PRN Reason: Nausea and Vomiting Pharmacy Consult (Consult Rx Perform Med Rec) 1 each MISCELLANE ONCE PRN PRN Reason: Consult order Quetiapine Fumarate (Quetiapine Fumarate 100 Mg Tablet) 100 mg PO BEDTIME [facility] Last Admin: 09/13/21 20:27 Dose: 100 mg Documented By: URIEL Quetiapine Fumarate (Quetiapine Fumarate 400 Mg Tablet) 400 mg PO BEDTIME [facility] Last Admin: 09/13/21 20:27 Dose: 400 mg Documented By: URIEL Sodium Chloride (0.9 % Sodium Chloride Flush 3 Ml Syringe) 3 ml IVFLUSH QSHIFT [facility] Last Admin: 09/14/21 08:05 Dose: 3 ml Documented By: TOM Trazodone HCl (Trazodone Hcl 100 Mg Tablet) 100 mg PO BEDTIME [facility] Last Admin: 09/13/21 20:26 Dose: 100 mg Documented By: URIEL Venlafaxine HCl (Venlafaxine Hcl Er 150 Mg Cap.Er.24h) 300 mg PO DAILY [facility] Last Admin: 09/14/21 08:01 Dose: 300 mg Documented By: TOM Verapamil HCl (Verapamil Hcl 40 Mg Tablet) 40 mg PO BID [facility]; Protocol Last Admin: 09/14/21 08:01 Dose: 40 mg Documented By: TOM Labs CBC & Chem 7: 09/13/21 05:50 09/13/21 05:50 Labs: Laboratory Results - last 24 hr 09/13/21 09/13/21 09/14/21 15:51 19:56 07:30 POC Glucose 204 H 178 H 229 H 09/14/21 11:11 POC Glucose 242 H Assessment and Plan (1) Cerebellar stroke: Status: Acute Plan 40-year-old female with past medical history of HTN, diabetes, presents to the hospital with CVA found to have punctate acute infarct of the right cerebellar tonsil Right side weakness MRI showing tiny right cerebellar ischemic lesion seen by neuro - ? complicated migraine versus chemical induced cerebral vasoconstrictive syndrome - neuro recommends: ASA, statin, verapamil 40 bidfor migraine control and prn fioricet for headache pain control as well as control of vascular risk factors - Echocardiogram with bubble study negative - telemetry - no arrhythmia seen to date - re-eval by PT - still rec acute rehab - discussed with neuro, given ongoing balance issues, will repeat brain MRI DM Jardiance on hold - SSI - Diabetic diet mood - continue home meds Asthma - not in exacerbation - continue home inhalers DVT prophylaxis:? Loretta attending - dr. kauffman Disposition- patient requires ongoing inpatient hospitalization for stroke workup Quality Stroke Does the patient have a stroke diagnosis?: No VTE Prior VTE?: No VTE Risk Level:: Medical - moderate - high VTE Device Contraindication: Treatment Not Indicated VTE Drug Contraindication: N/A - Med Ordered
[2021-09-14 15:11] VITALS: BP 138/78; PULSE 96; RESP 14; TEMP 36.8; O2SAT 95
[2021-09-14 15:41] LABS: Glucose, Whole Blood 229 mg/dL (60-115)
[2021-09-14] MEDS: Butalb/Acetamin/Caff 50/325/40 TABLET 1 TAB PO (18:00)
[2021-09-14 19:07] VITALS: BP 125/70; PULSE 86; RESP 14; TEMP 36.4; O2SAT 95
[2021-09-14 19:25] LABS: Glucose, Whole Blood 215 mg/dL (60-115)
[2021-09-14] MEDS: QUEtiapine Fumarate 100 MG TABLET PO (20:51)
[2021-09-14] MEDS: traZODone HCL 100 MG TABLET PO (20:52)
[2021-09-14] MEDS: Enoxaparin Sodium 40 MG/0.4 ML SYRINGE SUBCUT (20:52)
[2021-09-14] MEDS: Atorvastatin Calcium 80 MG TABLET PO (20:52)
[2021-09-14] MEDS: QUEtiapine Fumarate 400 MG TABLET PO (20:52)
[2021-09-15 07:08] VITALS: BP 127/73; PULSE 80; RESP 20; TEMP 36.5; O2SAT 96
[2021-09-15 07:25] LABS: Glucose, Whole Blood 211 mg/dL (60-115)
[2021-09-15] MEDS: Insulin Lispro 100 UNIT/ML 3 ML VIAL SUBCUT ×4 (08:03→22:09)
[2021-09-15] MEDS: cloNIDine HCL 0.2 MG TABLET PO (08:04)
[2021-09-15] MEDS: Insulin Glargine,Hum.rec.anlog 100 UNIT/ML 10 ML VIAL 25 UNIT SUBCUT (08:04)
[2021-09-15] MEDS: Omeprazole 20 MG CAPSULE.DR PO (08:04)
[2021-09-15] MEDS: clonazePAM 1 MG TABLET PO ×2 (08:05→22:10)
[2021-09-15] MEDS: Gabapentin 100 MG CAPSULE PO ×2 (08:05→22:10)
[2021-09-15] MEDS: Venlafaxine HCl ER 150 MG CAP.ER.24H 300 MG PO (08:05)
[2021-09-15] MEDS: VerapamiL HCL 40 MG TABLET PO ×2 (08:05→22:10)
[2021-09-15] MEDS: Aspirin Enteric Coated 81 MG TABLET.DR PO (08:05)
[2021-09-15] MEDS: 0.9 % Sodium Chloride Flush 3 ML SYRINGE IVFLUSH ×3 (08:14→22:10)
[2021-09-15 11:33] VITALS: BP 122/70; PULSE 94; RESP 20; TEMP 36.6; O2SAT 96
[2021-09-15 11:40] LABS: Glucose, Whole Blood 349 mg/dL (60-115)
--- NOTE | 2021-09-15 13:13 | P.PNIM_ITS ---
Subjective Subjective Date of Service: 09/15/21 Interval History: seen and examined this morning follow up for ?cerebellar stroke no further headache or extremity weakness, still unsteady gait Review of Systems Review of Systems: Yes all other systems are reviewed and are negative Constitutional Constitutional: Denies chills and Denies fever(s) Cardiovascular Cardiovascular: Denies chest pain, Denies palpitations and Denies dyspnea Respiratory Respiratory: Denies cough and Denies dyspnea Gastrointestinal Gastrointestinal: Denies abdominal pain, Denies diarrhea, Denies nausea and Denies vomiting Endocrine Endocrine: Denies palpitations Physical Exam Vital Signs: Vital Signs: Last Vital Signs Temp 97.8 F 09/15/21 11:33 Pulse 94 09/15/21 11:33 Resp 20 09/15/21 11:33 BP 122/70 09/15/21 11:33 Pulse Ox 96 09/15/21 11:33 O2 Del Method 09/15/21 11:33 BMI result Body Mass Index 38.9 Const: General: no acute distress, alert and awake Nutritional Appearance: overweight Orientation/consciousness: patient oriented x3 Resp: Effort & Inspection: normal respiratory effort and able to speak in complete sentences Auscultation: clear to auscultation bilaterally Cardio: Rate: regular rate Heart sounds: S1 normal heart sound present and S2 normal heart sound present GI: Inspection: No distended Palpation (GI): Soft to palpation and nont delfino Neuro: Other: face appears more symmetrical; mild ptosis right eye; strength equal b/l; no pronator drift General: patient oriented x3 and moves all extremities Cranial nerves: Yes Midline tongue present Motor exam (neuro): no tremor no stacy Objective Data Active Medications Acetaminophen (Acetaminophen 325 Mg Tablet) 650 mg PO Q6H PRN PRN Reason: Pain, Mild (Pain Scale 1-3) Acetaminophen/Butalbital/Caffeine (Butalb/Acetamin/Caff 50/325/40 Tablet) 1 tab PO Q4H PRN PRN Reason: Headache Last Admin: 09/14/21 18:00 Dose: 1 tab Documented By: TOM Albuterol Sulfate (Albuterol Sulfate 90 Mcg 8 Gm Inhaler) 2 puff INHALE RQ6H PRN PRN Reason: shortness of breath or wheezing Aspirin (Aspirin Enteric Coated 81 Mg Tablet.) 81 mg PO DAILY [facility] Last Admin: 09/15/21 08:05 Dose: 81 mg Documented By: BOOGIE Atorvastatin Calcium (Atorvastatin Calcium 80 Mg Tablet) 80 mg PO BEDTIME [facility] Last Admin: 09/14/21 20:52 Dose: 80 mg Documented By: MOHIT Clonazepam (Clonazepam 1 Mg Tablet) 1 mg PO BID [facility] Last Admin: 09/15/21 08:05 Dose: 1 mg Documented By: BOOGIE Clonidine HCl (Clonidine Hcl 0.2 Mg Tablet) 0.2 mg PO DAILY [facility]; Protocol Last Admin: 09/15/21 08:04 Dose: 0.2 mg Documented By: BOOGIE Dextrose (Dextrose 50 % 25 Gm/50 Ml Syringe) 25 gm IVPUSH Q15M PRN; Protocol PRN Reason: per Hypoglycemia Standing Ord. Docusate Sodium (Docusate Sodium 100 Mg Capsule) 100 mg PO DAILY PRN PRN Reason: Constipation Enoxaparin Sodium (Enoxaparin Sodium 40 Mg/0.4 Ml Syringe) 40 mg SUBCUT Q24H [facility] Last Admin: 09/14/21 20:52 Dose: 40 mg Documented By: MOHIT Gabapentin (Gabapentin 100 Mg Capsule) 100 mg PO BID [facility] Last Admin: 09/15/21 08:05 Dose: 100 mg Documented By: BOOGIE Glucose (Glucose Gel 15 Gm Gel..Gram.) 15 gm PO Q15M PRN; Protocol PRN Reason: per Hypoglycemia Standing Ord. Insulin Glargine (Insulin Glargine,Hum.Rec.Anlog 100 Unit/Ml 10 Ml Vial) 25 unit SUBCUT DAILY [facility] Last Admin: 09/15/21 08:04 Dose: 25 unit Documented By: BOOGIE Insulin Human Lispro (Insulin Lispro 100 Unit/Ml 3 Ml Vial) 0 unit SUBCUT QIDACHS [facility]; Protocol Last Admin: 09/15/21 12:21 Dose: 8 unit Documented By: BOOGIE Omeprazole (Omeprazole 20 Mg Capsule.) 20 mg PO DAILY [facility] Last Admin: 09/15/21 08:04 Dose: 20 mg Documented By: BOOGIE Ondansetron HCl (Ondansetron Hcl 4 Mg/2 Ml Vial) 4 mg IVPUSH Q8H PRN PRN Reason: Nausea and Vomiting Pharmacy Consult (Consult Rx Perform Med Rec) 1 each MISCELLANE ONCE PRN PRN Reason: Consult order Quetiapine Fumarate (Quetiapine Fumarate 100 Mg Tablet) 100 mg PO BEDTIME [facility] Last Admin: 09/14/21 20:51 Dose: 100 mg Documented By: MOHIT Quetiapine Fumarate (Quetiapine Fumarate 400 Mg Tablet) 400 mg PO BEDTIME [facility] Last Admin: 09/14/21 20:52 Dose: 400 mg Documented By: MOHIT Sodium Chloride (0.9 % Sodium Chloride Flush 3 Ml Syringe) 3 ml IVFLUSH QSHIFT [facility] Last Admin: 09/15/21 08:14 Dose: 3 ml Documented By: BOOGIE Trazodone HCl (Trazodone Hcl 100 Mg Tablet) 100 mg PO BEDTIME [facility] Last Admin: 09/14/21 20:52 Dose: 100 mg Documented By: MOHIT Venlafaxine HCl (Venlafaxine Hcl Er 150 Mg Cap.Er.24h) 300 mg PO DAILY [facility] Last Admin: 09/15/21 08:05 Dose: 300 mg Documented By: BOOGIE Verapamil HCl (Verapamil Hcl 40 Mg Tablet) 40 mg PO BID [facility]; Protocol Last Admin: 09/15/21 08:05 Dose: 40 mg Documented By: BOOGIE Labs CBC & Chem 7: 09/13/21 05:50 09/13/21 05:50 Labs: Laboratory Results - last 24 hr 09/14/21 09/14/21 09/15/21 15:13 19:09 07:10 POC Glucose 229 H 215 H 211 H 09/15/21 11:37 POC Glucose 349 H Assessment and Plan (1) Right sided weakness: Status: Acute Plan 40-year-old female with past medical history of HTN, diabetes, presents to the hospital with CVA found to have punctate acute infarct of the right cerebellar tonsil Right side weakness MRI from 09/12 showing tiny right cerebellar ischemic lesion Echocardiogram with bubble study negative telemetry - no arrhythmia seen to date seen by neuro - ? complicated migraine versus chemical induced cerebral vasoconstrictive syndrome Initial recommendations: ASA, statin, verapamil 40 bidfor migraine control and prn fioricet for headache pain control as well as control of vascular risk factors Still with unsteady gait - repeat MRI 09/15 showing no acute stroke, nonspecific T2 flair signal hyperintensity within the periventricular white matter - re-eval by PT - still rec acute rehab - discussed with neuro, given ongoing balance issues, rec cervical spine MRI with and without contrast and LP DM Jardiance on hold - SSI - Diabetic diet mood - continue home meds Asthma - not in exacerbation - continue home inhalers DVT prophylaxis:? Loretta attending - dr. Gordon patient requires ongoing inpatient hospitalization for stroke workup Quality Stroke Does the patient have a stroke diagnosis?: No VTE Prior VTE?: No VTE Risk Level:: Medical - moderate - high VTE Device Contraindication: Treatment Not Indicated VTE Drug Contraindication: N/A - Med Ordered
[2021-09-15 16:00] VITALS: PULSE 87; RESP 16; TEMP 37.1; O2SAT 96
[2021-09-15 16:46] LABS: Glucose, Whole Blood 194 mg/dL (60-115)
[2021-09-15 19:59] VITALS: BP 142/80; PULSE 93; RESP 18; TEMP 36.8; O2SAT 98
[2021-09-15 21:48] LABS: Glucose, Whole Blood 279 mg/dL (60-115)
[2021-09-15] MEDS: Enoxaparin Sodium 40 MG/0.4 ML SYRINGE SUBCUT (22:09)
[2021-09-15] MEDS: QUEtiapine Fumarate 100 MG TABLET PO (22:10)
[2021-09-15] MEDS: QUEtiapine Fumarate 400 MG TABLET PO (22:10)
[2021-09-15] MEDS: Atorvastatin Calcium 80 MG TABLET PO (22:10)
[2021-09-15] MEDS: traZODone HCL 100 MG TABLET PO (22:10)
[2021-09-16 04:00] VITALS: PULSE 95; RESP 20; O2SAT 96
[2021-09-16 07:39] LABS: Glucose, Whole Blood 215 mg/dL (60-115)
[2021-09-16 08:00] VITALS: BP 146/79; PULSE 99; RESP 20; TEMP 36.3; O2SAT 98
[2021-09-16] MEDS: Insulin Lispro 100 UNIT/ML 3 ML VIAL SUBCUT ×4 (08:12→20:46)
[2021-09-16] MEDS: Insulin Glargine,Hum.rec.anlog 100 UNIT/ML 10 ML VIAL 25 UNIT SUBCUT (08:12)
[2021-09-16] MEDS: Gabapentin 100 MG CAPSULE PO ×2 (08:13→20:47)
[2021-09-16] MEDS: clonazePAM 1 MG TABLET PO ×2 (08:13→20:47)
[2021-09-16] MEDS: Aspirin Enteric Coated 81 MG TABLET.DR PO (08:13)
[2021-09-16] MEDS: VerapamiL HCL 40 MG TABLET PO ×2 (08:13→20:47)
[2021-09-16] MEDS: cloNIDine HCL 0.2 MG TABLET PO (08:13)
[2021-09-16] MEDS: Venlafaxine HCl ER 150 MG CAP.ER.24H 300 MG PO (08:13)
[2021-09-16] MEDS: Omeprazole 20 MG CAPSULE.DR PO (08:13)
[2021-09-16] MEDS: 0.9 % Sodium Chloride Flush 3 ML SYRINGE IVFLUSH ×3 (08:17→20:52)
[2021-09-16 11:13] LABS: Glucose, Whole Blood 292 mg/dL (60-115)
[2021-09-16 11:43] VITALS: BP 112/74; PULSE 76; RESP 20; TEMP 36.3; O2SAT 96
--- NOTE | 2021-09-16 12:38 | P.PNIM_ITS ---
Subjective Subjective Date of Service: 09/16/21 Interval History: Seen and examined this morning Follow-up unsteady Was re-evaluated by physical therapy yesterday, inconsistent physical exam No overnight events No specific complaints this morning. No headache, no arm weakness, tingling Review of Systems Review of Systems: Yes all other systems are reviewed and are negative Constitutional Constitutional: Denies chills, Denies fever(s) and Denies headache(s) ENT Ears, Nose, Mouth, and Throat: Denies dizziness and Denies headache(s) Cardiovascular Cardiovascular: Denies chest pain, Denies palpitations and Denies dyspnea Respiratory Respiratory: Denies cough and Denies dyspnea Gastrointestinal Gastrointestinal: Denies abdominal pain, Denies diarrhea, Denies nausea and Denies vomiting Neurologic Neurologic: Denies dizziness and Denies headache(s) Endocrine Endocrine: Denies palpitations Physical Exam Vital Signs: Vital Signs: Last Vital Signs Temp 97.4 F 09/16/21 11:43 Pulse 76 09/16/21 11:43 Resp 20 09/16/21 11:43 BP 112/74 09/16/21 11:43 Pulse Ox 96 09/16/21 11:43 O2 Del Method 09/16/21 11:43 BMI result Body Mass Index 38.9 Const: General: no acute distress, alert and awake Nutritional Appearance: overweight Orientation/consciousness: patient oriented x3 Resp: Effort & Inspection: normal respiratory effort and able to speak in complete sentences Auscultation: clear to auscultation bilaterally Cardio: Rate: regular rate Heart sounds: S1 normal heart sound present and S2 normal heart sound present GI: Inspection: No distended Palpation (GI): Soft to palpation and nontender Neuro: General: patient oriented x3 and moves all extremities Cranial ne rves: Yes Midline tongue present Motor exam (neuro): no tremor noted Objective Data Active Medications Acetaminophen (Acetaminophen 325 Mg Tablet) 650 mg PO Q6H PRN PRN Reason: Pain, Mild (Pain Scale 1-3) Acetaminophen/Butalbital/Caffeine (Butalb/Acetamin/Caff 50/325/40 Tablet) 1 tab PO Q4H PRN PRN Reason: Headache Last Admin: 09/14/21 18:00 Dose: 1 tab Documented By: TOM Albuterol Sulfate (Albuterol Sulfate 90 Mcg 8 Gm Inhaler) 2 puff INHALE RQ6H PRN PRN Reason: shortness of breath or wheezing Aspirin (Aspirin Enteric Coated 81 Mg Tablet.) 81 mg PO DAILY [facility] Last Admin: 09/16/21 08:13 Dose: 81 mg Documented By: RAJI Atorvastatin Calcium (Atorvastatin Calcium 80 Mg Tablet) 80 mg PO BEDTIME [facility] Last Admin: 09/15/21 22:10 Dose: 80 mg Documented By: MOHIT Clonazepam (Clonazepam 1 Mg Tablet) 1 mg PO BID [facility] Last Admin: 09/16/21 08:13 Dose: 1 mg Documented By: RAJI Clonidine HCl (Clonidine Hcl 0.2 Mg Tablet) 0.2 mg PO DAILY [facility]; Protocol Last Admin: 09/16/21 08:13 Dose: 0.2 mg Documented By: RAJI Dextrose (Dextrose 50 % 25 Gm/50 Ml Syringe) 25 gm IVPUSH Q15M PRN; Protocol PRN Reason: per Hypoglycemia Standing Ord. Docusate Sodium (Docusate Sodium 100 Mg Capsule) 100 mg PO DAILY PRN PRN Reason: Constipation Enoxaparin Sodium (Enoxaparin Sodium 40 Mg/0.4 Ml Syringe) 40 mg SUBCUT Q24H [facility] Last Admin: 09/15/21 22:09 Dose: 40 mg Documented By: MOHIT Gabapentin (Gabapentin 100 Mg Capsule) 100 mg PO BID [facility] Last Admin: 09/16/21 08:13 Dose: 100 mg Documented By: RAJI Glucose (Glucose Gel 15 Gm Gel..Gram.) 15 gm PO Q15M PRN; Protocol PRN Reason: per Hypoglycemia Standing Ord. Insulin Glargine (Insulin Glargine,Hum.Rec.Anlog 100 Unit/Ml 10 Ml Vial) 25 unit SUBCUT DAILY [facility] Last Admin: 09/16/21 08:12 Dose: 25 unit Documented By: RAJI Insulin Human Lispro (Insulin Lispro 100 Unit/Ml 3 Ml Vial) 0 unit SUBCUT QIDACHS [facility]; Protocol Last Admin: 09/16/21 11:31 Dose: 6 unit Documented By: RAJI Nicotine Polacrilex (Nicotine Polacrilex 2 Mg Gum) 2 mg BUCCAL Q2H PRN PRN Reason: Nicotine Cravings Omeprazole (Omeprazole 20 Mg Capsule.) 20 mg PO DAILY [facility] Last Admin: 09/16/21 08:13 Dose: 20 mg Documented By: RAJI Ondansetron HCl (Ondansetron Hcl 4 Mg/2 Ml Vial) 4 mg IVPUSH Q8H PRN PRN Reason: Nausea and Vomiting Pharmacy Consult (Consult Rx Perform Med Rec) 1 each MISCELLANE ONCE PRN PRN Reason: Consult order Quetiapine Fumarate (Quetiapine Fumarate 100 Mg Tablet) 100 mg PO BEDTIME [facility] Last Admin: 09/15/21 22:10 Dose: 100 mg Documented By: MOHIT Quetiapine Fumarate (Quetiapine Fumarate 400 Mg Tablet) 400 mg PO BEDTIME [facility] Last Admin: 09/15/21 22:10 Dose: 400 mg Documented By: MOHIT Sodium Chloride (0.9 % Sodium Chloride Flush 3 Ml Syringe) 3 ml IVFLUSH QSHIFT [facility] Last Admin: 09/16/21 08:17 Dose: 3 ml Documented By: RAJI Trazodone HCl (Trazodone Hcl 100 Mg Tablet) 100 mg PO BEDTIME [facility] Last Admin: 09/15/21 22:10 Dose: 100 mg Documented By: MOHIT Venlafaxine HCl (Venlafaxine Hcl Er 150 Mg Cap.Er.24h) 300 mg PO DAILY [facility] Last Admin: 09/16/21 08:13 Dose: 300 mg Documented By: RAJI Verapamil HCl (Verapamil Hcl 40 Mg Tablet) 40 mg PO BID [facility]; Protocol Last Admin: 09/16/21 08:13 Dose: 40 mg Documented By: RAJI Labs CBC & Chem 7: 09/13/21 05:50 09/13/21 05:50 Labs: Laboratory Results - last 24 hr 09/15/21 09/15/21 09/16/21 16:21 19:52 07:24 POC Glucose 194 H 279 H 215 H 09/16/21 11:01 POC Glucose 292 H Assessment and Plan (1) Right sided weakness: Status: Acute Plan 40-year-old female with past medical history of HTN, diabetes, presents to the hospital with CVA found to have punctate acute infarct of the right cerebellar tonsil Right side weakness MRI from 09/12 showing tiny right cerebellar ischemic lesion Echocardiogram with bubble study negative telemetry - no arrhythmia seen to date seen by neuro - ? complicated migraine versus chemical induced cerebral vasoconstrictive syndrome Initial recommendations: ASA, statin, verapamil 40 bidfor migraine control and prn fioricet for headache pain control as well as control of vascular risk factors Still with unsteady gait - repeat MRI 09/15 showing no acute stroke, nonspecific T2 flair signal hyperintensity within the periventricular white matter - re-eval by PT - still rec acute rehab although reporting inconsistent physical exam - discussed with neuro, given ongoing balance issues, rec cervical spine MRI with and without contrast and LP - C spine MRI showing small central protrusion at C6-C7 and tiny extrusions at T4/T5. No cord compression or other abnormalities. - LP in am. lovenox d/c, ASA on hold DM Jardiance on hold - SSI - Diabetic diet mood - continue home meds Asthma - not in exacerbation - continue home inhalers DVT prophylaxis:? jeannine attending - dr. Gordon patient requires ongoing inpatient hospitalization for stroke workup Quality Stroke Does the patient have a stroke diagnosis?: No VTE Prior VTE?: No VTE Risk Level:: Medical - moderate - high VTE Device Contraindication: Treatment Not Indicated VTE Drug Contraindication: N/A - Med Ordered
[2021-09-16 14:55] VITALS: BP 121/70; PULSE 99; RESP 20; TEMP 36.7; O2SAT 96
[2021-09-16 16:12] LABS: Glucose, Whole Blood 244 mg/dL (60-115)
[2021-09-16] MEDS: Butalb/Acetamin/Caff 50/325/40 TABLET 1 TAB PO (18:35)
[2021-09-16 19:45] VITALS: BP 141/66; RESP 18; TEMP 36.7; O2SAT 96
[2021-09-16] MEDS: Acetaminophen 325 MG TABLET 650 MG PO (20:47)
[2021-09-16] MEDS: traZODone HCL 100 MG TABLET PO (20:47)
[2021-09-16] MEDS: QUEtiapine Fumarate 100 MG TABLET PO (20:47)
[2021-09-16] MEDS: QUEtiapine Fumarate 400 MG TABLET PO (20:47)
[2021-09-16] MEDS: Atorvastatin Calcium 80 MG TABLET PO (20:47)
[2021-09-16 20:48] LABS: Glucose, Whole Blood 233 mg/dL (60-115)
[2021-09-16 23:34] VITALS: PULSE 80
[2021-09-17 04:00] VITALS: PULSE 82; RESP 20
[2021-09-17 07:51] VITALS: BP 139/76; PULSE 89; RESP 16; TEMP 36.6; O2SAT 95
[2021-09-17 08:19] LABS: Glucose, Whole Blood 229 mg/dL (60-115)
[2021-09-17] MEDS: cloNIDine HCL 0.2 MG TABLET PO (08:37)
[2021-09-17] MEDS: Omeprazole 20 MG CAPSULE.DR PO (08:37)
[2021-09-17] MEDS: Gabapentin 100 MG CAPSULE PO ×2 (08:37→21:32)
[2021-09-17] MEDS: Venlafaxine HCl ER 150 MG CAP.ER.24H 300 MG PO (08:37)
[2021-09-17] MEDS: clonazePAM 1 MG TABLET PO (08:37)
[2021-09-17] MEDS: 0.9 % Sodium Chloride Flush 3 ML SYRINGE IVFLUSH ×3 (08:38→21:33)
[2021-09-17] MEDS: Insulin Lispro 100 UNIT/ML 3 ML VIAL SUBCUT ×4 (08:38→21:32)
[2021-09-17] MEDS: VerapamiL HCL 40 MG TABLET PO ×2 (08:38→21:32)
[2021-09-17] MEDS: Insulin Glargine,Hum.rec.anlog 100 UNIT/ML 10 ML VIAL 25 UNIT SUBCUT (08:38)
[2021-09-17 11:04] LABS: Glucose, Whole Blood 187 mg/dL (60-115)
[2021-09-17 11:10] VITALS: BP 109/74; PULSE 88; RESP 16; TEMP 36.6; O2SAT 95
--- NOTE | 2021-09-17 11:18 | HO.PM.IMPN ---
Subjective Subjective Date of Service: 09/17/21 Interval History: Seen and examined this morning Follow-up unsteady Was re-evaluated by physical therapy yesterday, inconsistent physical exam No overnight events No specific complaints this morning. No headache, no arm weakness, tingling Review of Systems Review of Systems: Yes all other systems are reviewed and are negative Constitutional Constitutional: Denies chills, Denies fever(s) and Denies headache(s) ENT Ears, Nose, Mouth, and Throat: Denies dizziness and Denies headache(s) Cardiovascular Cardiovascular: Denies chest pain, Denies palpitations and Denies dyspnea Respiratory Respiratory: Denies cough and Denies dyspnea Gastrointestinal Gastrointestinal: Denies abdominal pain, Denies diarrhea, Denies nausea and Denies vomiting Neurologic Neurologic: Denies dizziness and Denies headache(s) Endocrine Endocrine: Denies palpitations Physical Exam Vital Signs: Vital Signs: Last Vital Signs Temp 97.9 F 09/17/21 11:10 Pulse 88 09/17/21 11:10 Resp 16 09/17/21 11:10 BP 109/74 09/17/21 11:10 Pulse Ox 95 09/17/21 11:10 O2 Del Method 09/17/21 11:10 BMI result Body Mass Index 38.9 Appearing in no acute distress lung sounds are clear to auscultation heart regular rate rhythm, clear S1, S2 positive bowel sounds, abdomen is soft, nontender neuro patient is alert x3, no focal deficits Objective Data Active Medications Acetaminophen (Acetaminophen 325 Mg Tablet) 650 mg PO Q6H PRN PRN Reason: Pain, Mild (Pain Scale 1-3) Last Admin: 09/16/21 20:47 Dose: 650 mg Documented By: MOHIT Acetaminophen/Butalbital/Caffeine (Butalb/Acetamin/Caff 50/325/40 Tablet) 1 tab PO Q4H PRN PRN Reason: Headache Last Admin: 09/16/21 18:35 Dose: 1 tab Documented By: RAJI Albuterol Sulfate (Albuterol Sulfate 90 Mcg 8 Gm Inhaler) 2 puff INHALE RQ6H PRN PRN Reason: shortness of breath or wheezing Aspirin (Aspirin Enteric Coated 81 Mg Tablet.) 81 mg PO DAILY [place] Last Admin: 09/16/21 08:13 Dose: 81 mg Documented By: RAJI Atorvastatin Calcium (Atorvastatin Calcium 80 Mg Tablet) 80 mg PO BEDTIME [facility] Last Admin: 09/16/21 20:47 Dose: 80 mg Documented By: MOHIT Clonazepam (Clonazepam 1 Mg Tablet) 1 mg PO BID [facility] Last Admin: 09/17/21 08:37 Dose: 1 mg Documented By: BYRON Clonidine HCl (Clonidine Hcl 0.2 Mg Tablet) 0.2 mg PO DAILY [facility]; Protocol Last Admin: 09/17/21 08:37 Dose: 0.2 mg Documented By: BYRON Dextrose (Dextrose 50 % 25 Gm/50 Ml Syringe) 25 gm IVPUSH Q15M PRN; Protocol PRN Reason: per Hypoglycemia Standing Ord. Docusate Sodium (Docusate Sodium 100 Mg Capsule) 100 mg PO DAILY PRN PRN Reason: Constipation Gabapentin (Gabapentin 100 Mg Capsule) 100 mg PO BID [facility] Last Admin: 09/17/21 08:37 Dose: 100 mg Documented By: BYRON Glucose (Glucose Gel 15 Gm Gel..Gram.) 15 gm PO Q15M PRN; Protocol PRN Reason: per Hypoglycemia Standing Ord. Insulin Glargine (Insulin Glargine,Hum.Rec.Anlog 100 Unit/Ml 10 Ml Vial) 25 unit SUBCUT DAILY [facility] Last Admin: 09/17/21 08:38 Dose: 25 unit Documented By: BYRON Insulin Human Lispro (Insulin Lispro 100 Unit/Ml 3 Ml Vial) 0 unit SUBCUT QIDACHS [facility]; Protocol Last Admin: 09/17/21 08:38 Dose: 4 unit Documented By: BYRON Nicotine Polacrilex (Nicotine Polacrilex 2 Mg Gum) 2 mg BUCCAL Q2H PRN PRN Reason: Nicotine Cravings Omeprazole (Omeprazole 20 Mg Capsule.) 20 mg PO DAILY [facility] Last Admin: 09/17/21 08:37 Dose: 20 mg Documented By: BYRON Ondansetron HCl (Ondansetron Hcl 4 Mg/2 Ml Vial) 4 mg IVPUSH Q8H PRN PRN Reason: Nausea and Vomiting Pharmacy Consult (Consult Rx Perform Med Rec) 1 each MISCELLANE ONCE PRN PRN Reason: Consult order Quetiapine Fumarate (Quetiapine Fumarate 100 Mg Tablet) 100 mg PO BEDTIME [facility] Last Admin: 09/16/21 20:47 Dose: 100 mg Documented By: MOHIT Quetiapine Fumarate (Quetiapine Fumarate 400 Mg Tablet) 400 mg PO BEDTIME [facility] Last Admin: 09/16/21 20:47 Dose: 400 mg Documented By: MOHIT Sodium Chloride (0.9 % Sodium Chloride Flush 3 Ml Syringe) 3 ml IVFLUSH QSHIFT [facility] Last Admin: 09/17/21 08:38 Dose: 3 ml Documented By: BYRON Trazodone HCl (Trazodone Hcl 100 Mg Tablet) 100 mg PO BEDTIME [facility] Last Admin: 09/16/21 20:47 Dose: 100 mg Documented By: MOHIT Venlafaxine HCl (Venlafaxine Hcl Er 150 Mg Cap.Er.24h) 300 mg PO DAILY [facility] Last Admin: 09/17/21 08:37 Dose: 300 mg Documented By: BYRON Verapamil HCl (Verapamil Hcl 40 Mg Tablet) 40 mg PO BID [facility]; Protocol Last Admin: 09/17/21 08:38 Dose: 40 mg Documented By: BYRON Labs CBC & Chem 7: 09/13/21 05:50 09/13/21 05:50 Labs: Laboratory Results - last 24 hr 09/16/21 09/16/21 09/17/21 16:03 19:51 07:54 POC Glucose 244 H 233 H 229 H 09/17/21 10:53 POC Glucose 187 H Assessment and Plan (1) Right sided weakness: Status: Acute Plan 40-year-old female with past medical history of HTN, diabetes, presents to the hospital with CVA found to have 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 complicated migraine versus chemical induced cerebral vasoconstrictive syndrome Cspine showed small central protrusion at C6-C7 and tiny extrusions at T4/T5. No cord compression or other abnormalities. Echocardiogram with bubble study negative telemetry - no arrhythmia seen to date discussed with neuro rec LP DM ss, ada diet mood continue home meds Mild intermittent Asthma not in exacerbation continue home inhalers DVT prophylaxis:? SCD boots attending - dr. Jesin dispo PT rec acute STR patient requires ongoing inpatient hospitalization for stroke workup Quality Stroke Does the patient have a stroke diagnosis?: No VTE Prior VTE?: No VTE Risk Level:: Medical - moderate - high VTE Device Contraindication: Treatment Not Indicated VTE Drug Contraindication: N/A - Med Ordered
--- NOTE | 2021-09-17 11:39 | MHC.CM.PN ---
PER M D ROUNDS, PT NOT YET CLEARED TO DC. DCP REMAINS TBD. [facility] IS BEING RECOMMENDED AND ALL THREE ARE OFFERING BEDS FINAL PLAN WILL BE BASED ON PTS PREFERENCES
--- NOTE | 2021-09-17 13:35 | MHC.CDI.CONC ---
CDI Concurrent Query Documentation Clarification: PHYSICIAN'S DOCUMENTATION REQUEST Date of Query: 09/17/21 1331 Patient Name: Darlene Godfrey Admit Date: 09/12/21 Dear Doctor, Please review the following and provide your response in the progress notes. Clinical Indicators: The diagnosis of asthma was documented in the record on 09/17/21. Additional clinical indicators from the record include: Risk Factors/Clinical Indicators/Treatments Per MD progress note 09/17/21: Asthma not in exacerbation continue home inhalers Based on the above, please clarify in the Progress Notes further specificity regarding the type and acuity of the asthma: Type: Mild intermittent - less than 2x/week Mild persistent - more than 2x/week but not daily Moderate persistent - daily and may restrict physical activity Severe persistent - throughout the day with frequent attacks, limiting activities Exercise induced Chronic obstructive asthma and indicate if with acute lower respiratory infection Asthma with underlying COPD and indicate if with acute lower respiratory infection Other ? please specify Unable to determine Use of terms such as suspected, likely, concern for, or probable (associated with a specific diagnosis that is being evaluated, monitored, or treated as if it exists) are acceptable and can be coded in the inpatient setting, when documented at the time of discharge. Thank you, Ronel Mckenna RN Extension: [phone] Please use your independent medical judgment in providing your response. THIS QUERY IS PART OF THE PERMANENT MEDICAL RECORD Other Diagnosis: mild intermittent
--- NOTE | 2021-09-17 13:35 | P.CDIC_ITS ---
CDI Concurrent Query Documentation Clarification: PHYSICIAN'S DOCUMENTATION REQUEST Date of Query: 09/17/21 1333 Patient Name: Darlene Godfrey Admit Date: 09/12/21 Dear Doctor, Please review the following and provide your response in the progress notes. Clinical Indicators: The diagnosis of asthma was documented in the record on 09/17/21. Additional clinical indicators from the record include: Risk Factors/Clinical Indicators/Treatments Per MD progress note 09/17/21: Asthma not in exacerbation continue home inhalers Based on the above, please clarify in the Progress Notes further specificity regarding the type and acuity of the asthma: Type: * Mild intermittent - less than 2x/week * Mild persistent - more than 2x/week but not daily * Moderate persistent - daily and may restrict physical activity * Severe persistent - throughout the day with frequent attacks, limiting activities * Exercise induced * Chronic obstructive asthma and indicate if with acute lower respiratory infection * Asthma with underlying COPD and indicate if with acute lower respiratory infection * Other ? please specify * Unable to determine Use of terms such as suspected, likely, concern for, or probable (associated with a specific diagnosis that is being evaluated, monitored, or treated as if it exists) are acceptable and can be coded in the inpatient setting, when documented at the time of discharge. Thank you, Ronel Mckenna RN Extension: [phone] Please use your independent medical judgment in providing your response. THIS QUERY IS PART OF THE PERMANENT MEDICAL RECORD Other Diagnosis: mild intermittent
[2021-09-17 16:00] VITALS: BP 137/80; PULSE 85; RESP 16; TEMP 36.2; O2SAT 95
[2021-09-17 16:52] LABS: Glucose, Whole Blood 183 mg/dL (60-115)
[2021-09-17 17:33] LABS: Glucose CSF 126 mg/dL
[2021-09-17 17:37] LABS: CSF Appearance Clear, Colorless; CSF Tube # 3
[2021-09-17 17:48] LABS: Appearance CSF CLEAR; CSF Tube # 1
[2021-09-17 17:49] LABS: Appearance CSF CLEAR; CSF Monos 30 %; CSF Tube # 4; Color CSF COLORLESS; Lymphocytes CSF 50 %; Lymphocytes CSF 60 %; Neutrophils CSF 10 %; Neutrophils CSF 50 %; Red Blood Cell CSF 176 MM*3; Red Blood Cell CSF 425 MM*3; White Blood Cell CSF 1 MM*3; White Blood Cell CSF 5 MM*3
[2021-09-17 18:51] LABS: Cryptococcus neoformans/gattii Not Detected (Not Detect.); Enterovirus Not Detected (Not Detect.); Escherichia coli K1 Not Detected (Not Detect.); Haemophilus influenzae Not Detected (Not Detect.); Herpes simplex virus 1 Not Detected (Not Detect.); Herpes simplex virus 2 Not Detected (Not Detect.); Human herpesvirus 6 Not Detected (Not Detect.); Human parechovirus Not Detected (Not Detect.); Listeria monocytogenes Not Detected (Not Detect.); Neisseria meningitidis Not Detected (Not Detect.); Streptococcus agalactiae Not Detected (Not Detect.); Streptococcus pneumoniae Not Detected (Not Detect.); Varicella zoster virus Not Detected (Not Detect.)
[2021-09-17 20:00] VITALS: BP 134/76; PULSE 78; RESP 18; TEMP 36.3; O2SAT 94
[2021-09-17 20:51] LABS: Glucose, Whole Blood 295 mg/dL (60-115)
[2021-09-17] MEDS: traZODone HCL 100 MG TABLET PO (21:32)
[2021-09-17] MEDS: Atorvastatin Calcium 80 MG TABLET PO (21:32)
[2021-09-17] MEDS: QUEtiapine Fumarate 400 MG TABLET PO (21:32)
[2021-09-17] MEDS: QUEtiapine Fumarate 100 MG TABLET PO (21:32)
[2021-09-18] VITALS: PULSE 76; RESP 16
[2021-09-18 03:41] VITALS: BP 130/71; PULSE 97; RESP 18; TEMP 36.4; O2SAT 96
[2021-09-18 07:24] VITALS: BP 128/61; PULSE 100; RESP 16; TEMP 36.7; O2SAT 96
[2021-09-18 07:36] LABS: Glucose, Whole Blood 233 mg/dL (60-115)
[2021-09-18] MEDS: cloNIDine HCL 0.2 MG TABLET PO (07:56)
[2021-09-18] MEDS: Gabapentin 100 MG CAPSULE PO (07:56)
[2021-09-18] MEDS: Omeprazole 20 MG CAPSULE.DR PO (07:57)
[2021-09-18] MEDS: Insulin Glargine,Hum.rec.anlog 100 UNIT/ML 10 ML VIAL 25 UNIT SUBCUT (07:57)
[2021-09-18] MEDS: Venlafaxine HCl ER 150 MG CAP.ER.24H 300 MG PO (07:57)
[2021-09-18] MEDS: VerapamiL HCL 40 MG TABLET PO (07:57)
[2021-09-18] MEDS: Insulin Lispro 100 UNIT/ML 3 ML VIAL SUBCUT ×2 (07:57→11:51)
[2021-09-18] MEDS: 0.9 % Sodium Chloride Flush 3 ML SYRINGE IVFLUSH (07:58)
[2021-09-18 10:50] VITALS: BP 128/61; PULSE 100; O2SAT 96
[2021-09-18 10:55] VITALS: BP 127/71; PULSE 101; RESP 17; TEMP 36.5; O2SAT 99
[2021-09-18 11:27] LABS: Glucose, Whole Blood 310 mg/dL (60-115)
--- NOTE | 2021-09-18 13:39 | P.PNIM_ITS ---
Subjective Subjective Date of Service: 09/18/21 Interval History: Seen and examined this morning Follow-up unsteady gait Was re-evaluated by physical therapy yesterday, inconsistent physical exam No overnight events No specific complaints this morning. No headache, no arm weakness, tingling Review of Systems Review of Systems: Yes all other systems are reviewed and are negative Constitutional Constitutional: Denies chills, Denies fever(s) and Denies headache(s) ENT Ears, Nose, Mouth, and Throat: Denies dizziness and Denies headache(s) Cardiovascular Cardiovascular: Denies chest pain, Denies palpitations and Denies dyspnea Respiratory Respiratory: Denies cough and Denies dyspnea Gastrointestinal Gastrointestinal: Denies abdominal pain, Denies diarrhea, Denies nausea and D enies vomiting Neurologic Neurologic: Denies dizziness and Denies headache(s) Endocrine Endocrine: Denies palpitations Physical Exam Vital Signs: Vital Signs: Last Vital Signs Temp 97.7 F 09/18/21 10:55 Pulse 101 H 09/18/21 10:55 Resp 17 09/18/21 10:55 BP 127/71 09/18/21 10:55 Pulse Ox 99 09/18/21 10:55 O2 Del Method 09/18/21 10:55 BMI result Body Mass Index 38.9 Appearing in no acute distress lung sounds are clear to auscultation heart regular rate rhythm, clear S1, S2 positive bowel sounds, abdomen is soft, nontender neuro patient is alert x3, no focal deficits Objective Data Active Medications Acetaminophen (Acetaminophen 325 Mg Tablet) 650 mg PO Q6H PRN PRN Reason: Pain, Mild (Pain Scale 1-3) Last Admin: 09/16/21 20:47 Dose: 650 mg Documented By: MOHIT Acetaminophen/Butalbital/Caffeine (Butalb/Acetamin/Caff 50/325/40 Tablet) 1 tab PO Q4H PRN PRN Reason: Headache Last Admin: 09/16/21 18:35 Dose: 1 tab Documented By: RAJI Albuterol Sulfate (Albuterol Sulfate 90 Mcg 8 Gm Inhaler) 2 puff INHALE RQ6H PRN PRN Reason: shortness of breath or wheezing Aspirin (Aspirin Enteric Coated 81 Mg Tablet.) 81 mg PO DAILY [place] Last Admin: 09/16/21 08:13 Dose: 81 mg Documented By: RAJI Atorvastatin Calcium (Atorvastatin Calcium 80 Mg Tablet) 80 mg PO BEDTIME [facility] Last Admin: 09/17/21 21:32 Dose: 80 mg Documented By: MOHIT Clonidine HCl (Clonidine Hcl 0.2 Mg Tablet) 0.2 mg PO DAILY [facility]; Protocol Last Admin: 09/18/21 07:56 Dose: 0.2 mg Documented By: ALVAREZ Dextrose (Dextrose 50 % 25 Gm/50 Ml Syringe) 25 gm IVPUSH Q15M PRN; Protocol PRN Reason: per Hypoglycemia Standing Ord. Docusate Sodium (Docusate Sodium 100 Mg Capsule) 100 mg PO DAILY PRN PRN Reason: Constipation Gabapentin (Gabapentin 100 Mg Capsule) 100 mg PO BID [facility] Last Admin: 09/18/21 07:56 Dose: 100 mg Documented By: ALVAREZ Glucose (Glucose Gel 15 Gm Gel..Gram.) 15 gm PO Q15M PRN; Protocol PRN Reason: per Hypoglycemia Standing Ord. Insulin Glargine (Insulin Glargine,Hum.Rec.Anlog 100 Unit/Ml 10 Ml Vial) 25 unit SUBCUT DAILY [facility] Last Admin: 09/18/21 07:57 Dose: 25 unit Documented By: ALVAREZ Insulin Human Lispro (Insulin Lispro 100 Unit/Ml 3 Ml Vial) 0 unit SUBCUT QIDACHS [facility]; Protocol Last Admin: 09/18/21 11:51 Dose: 8 unit Documented By: ALVAREZ Nicotine Polacrilex (Nicotine Polacrilex 2 Mg Gum) 2 mg BUCCAL Q2H PRN PRN Reason: Nicotine Cravings Omeprazole (Omeprazole 20 Mg Capsule.) 20 mg PO DAILY [facility] Last Admin: 09/18/21 07:57 Dose: 20 mg Documented By: ALVAREZ Ondansetron HCl (Ondansetron Hcl 4 Mg/2 Ml Vial) 4 mg IVPUSH Q8H PRN PRN Reason: Nausea and Vomiting Pharmacy Consult (Consult Rx Perform Med Rec) 1 each MISCELLANE ONCE PRN PRN Reason: Consult order Quetiapine Fumarate (Quetiapine Fumarate 100 Mg Tablet) 100 mg PO BEDTIME [facility] Last Admin: 09/17/21 21:32 Dose: 100 mg Documented By: MOHIT Quetiapine Fumarate (Quetiapine Fumarate 400 Mg Tablet) 400 mg PO BEDTIME [facility] Last Admin: 09/17/21 21:32 Dose: 400 mg Documented By: MOHIT Sodium Chloride (0.9 % Sodium Chloride Flush 3 Ml Syringe) 3 ml IVFLUSH QSHIFT [facility] Last Admin: 09/18/21 07:58 Dose: 3 ml Documented By: ALVAREZ Trazodone HCl (Trazodone Hcl 100 Mg Tablet) 100 mg PO BEDTIME [facility] Last Admin: 09/17/21 21:32 Dose: 100 mg Documented By: MOHIT Venlafaxine HCl (Venlafaxine Hcl Er 150 Mg Cap.Er.24h) 300 mg PO DAILY [facility] Last Admin: 09/18/21 07:57 Dose: 300 mg Documented By: ALVAREZ Verapamil HCl (Verapamil Hcl 40 Mg Tablet) 40 mg PO BID [facility]; Protocol Last Admin: 09/18/21 07:57 Dose: 40 mg Documented By: ALVAREZ Labs CBC & Chem 7: 09/13/21 05:50 09/13/21 05:50 Labs: Laboratory Results - last 24 hr 09/17/21 09/17/21 09/17/21 16:49 20:47 Unknown POC Glucose 183 H 295 H CSF Tube Number CSF Volume CSF Appearance CSF Color CSF WBC CSF RBC CSF Neutrophils CSF Lymphocytes CSF Monocytes % CSF Appearance (b) CSF Glucose CSF Total Protein CSF C.neoform/gat PCR Not Detected CSF CMV DNA (PCR) Not Detected CSF Enterovirus (PCR) Not Detected CSF E. coli K1 (PCR) Not Detected CSF H. influenzae (PCR) Not Detected CSF HSV I (PCR) Not Detected CSF HSV II (PCR) Not Detected CSF HHV 6 (PCR) Not Detected CSF L.monocytogenes PCR Not Detected CSF N. meningitidis PCR Not Detected CSF Parechovirus (PCR) Not Detected CSF S. agalactiae (PCR) Not Detected CSF S. pneumoniae (PCR) Not Detected CSF VZV (PCR) Not Detected 09/17/21 09/17/21 09/17/21 Unknown Unknown Unknown POC Glucose CSF Tube Number 3 4 1 CSF Volume 3.0 3.0 CSF Appearance CLEAR CLEAR CSF Color COLORLESS COLORLESS CSF WBC 5 1 CSF RBC 425 176 CSF Neutrophils 50 10 CSF Lymphocytes 50 60 CSF Monocytes % 30 CSF Appearance (b) Clear, Colorless CSF Glucose 126 CSF Total Protein 54.0 H CSF C.neoform/gat PCR CSF CMV DNA (PCR) CSF Enterovirus (PCR) CSF E. coli K1 (PCR) CSF H. influenzae (PCR) CSF HSV I (PCR) CSF HSV II (PCR) CSF HHV 6 (PCR) CSF L.monocytogenes PCR CSF N. meningitidis PCR CSF Parechovirus (PCR) CSF S. agalactiae (PCR) CSF S. pneumoniae (PCR) CSF VZV (PCR) 09/18/21 09/18/21 07:27 11:01 POC Glucose 233 H 310 H CSF Tube Number CSF Volume CSF Appearance CSF Color CSF WBC CSF RBC CSF Neutrophils CSF Lymphocytes CSF Monocytes % CSF Appearance (b) CSF Glucose CSF Total Protein CSF C.neoform/gat PCR CSF CMV DNA (PCR) CSF Enterovirus (PCR) CSF E. coli K1 (PCR) CSF H. influenzae (PCR) CSF HSV I (PCR) CSF HSV II (PCR) CSF HHV 6 (PCR) CSF L.monocytogenes PCR CSF N. meningitidis PCR CSF Parechovirus (PCR) CSF S. agalactiae (PCR) CSF S. pneumoniae (PCR) CSF VZV (PCR) Microbiology Microbiology Results: Microbiology 09/17/21 Unknown Gram Stain - Final Cerebrospinal Fluid CSF Examination - Final Fluid Description - Final CSF Culture - Preliminary Culture in progress. 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 No cord compression or other abnormalities. Echocardiogram with bubble study negative telemetry - no arrhythmia seen to date seen by neuro rec LP >essentially negative psychiatric consultation pending DM ss, ada diet mood continue home meds Mild intermittent Asthma not in exacerbation continue home inhalers DVT prophylaxis:? SCD jeannine attending - dr. Youngblood dispo PT rec acute STR patient requires ongoing inpatient hospitalization for psychicatric consultation for possible psychogenic presentation of symptoms Quality Stroke Does the patient have a stroke diagnosis?: No VTE Prior VTE?: No VTE Risk Level:: Medical - moderate - high VTE Device Contraindication: Treatment Not Indicated VTE Drug Contraindication: N/A - Med Ordered
--- NOTE | 2021-09-18 14:16 | PM.DS ---
DS: Providers Provider Date of Service: 09/18/21 Date of admission: 09/12/21 20:03 Primary care physician: Gurdeep Villarreal MD Consults: 09/12/21 20:20 Consult to Neurology Routine Consulting Provider: [facility] Reason for consultation: CVA 09/18/21 13:39 Consult to Psychiatry Routine Consulting Provider: Psych Covering Reason for consultation: ? conversion disorder. medically clear Has provider been notified: No Attending physician on discharge: Bud Youngblood Discharging clinician: Angela Matt DS: Diagnosis Discharge Diagnosis (1) Right sided weakness: Status: Acute DS: Summary Hospital Course Hospital Course: HP as per admitting provider This 89-year-old female past medical history of asthma, Crohn's disease, GERD, HLD, HTN, IBS, migraine headaches, OCD, depression anxiety, PTSD, seizure disorders, diabetes, HLD, diabetes who presents to the hospital with complaints of right eye swelling, twitching, right arm numbness tingling and weakness, as well as headache since Friday.? Patient also reports that today she started having gait issues and walking into [place], bumping and leaning to the left side when walking therefore decided to come to the hospital.? She is also complaining of right-sided temporal headache, she reports that she has history of migraines that this headache feels different, she is also having phonophobia and watery discharge from [place], she denies any double or blurry vision.? She otherwise denies any chest pain, no palpitations, no shortness of breath, no cough, no abdominal pain nausea or vomiting, no diarrhea constipation, no urinary symptoms and no lower extremity weakness numbness or tingling.?On arrival to the ED patient hemodynamically stable with no significant abnormal vitals Labs are significant for WBC count of 12.0, labs otherwise seemed to be unremarkable, UA shows trace leukocyte Estrace with some WBC, Brain MRI shows potential punctate infarct of the right cerebral tonsil, head and neck CT angiogram shows no hemodynamically significant arterial stenosis, dissection, or vascular cut off, there seems to be a short-segment mild focal narrowing of the proximal left superior cerebral artery Patient started on aspirin and will be admitted for further evaluation LEFT AGAINST MEDICAL ADVICE. TOLD CONSEQUENCES OF LEAVING PRIOR TO FINISHING COMPLETE EVALUATION OF DIAGNOSIS. PATIENT AGREED THAT SHE WOULD SIGN OUT AGAINST MEDICAL ADVICE. Right side weakness with psychosomatic features MRI 09/15 showing no acute stroke, nonspecific T2 flair signal hyperintensity within the periventricular white matter Cspine showed small central protrusion at C6-C7 and tiny extrusions at T4/T5.? No cord compression or other abnormalities. Echocardiogram with bubble study negative telemetry - no arrhythmia seen to date seen by neuro rec LP >essentially negative psychiatric consultation pending for evaluation of conversion/psychogenic weakness DM ss, ada diet mood continue home meds Mild intermittent Asthma not in exacerbation continue home inhalers Time Spent with Patient Time attestation: Total time spent providing and/or coordinating discharge services: Discharge coordination time: Greater than 30 minutes Quality: Safe Use of Opioids Does Pt have an Active Cancer Diagnosis on the Problem List?: No Quality: Stroke Does the patient have a stroke diagnosis?: No Physical Exam Vital Signs: Vital Signs: Last Vital Signs Temp 97.7 F 09/18/21 10:55 Pulse 101 H 09/18/21 10:55 Resp 17 09/18/21 10:55 BP 127/71 09/18/21 10:55 Pulse Ox 99 09/18/21 10:55 O2 Del Method 09/18/21 10:55 BMI result Body Mass Index 38.9 LEFT AGAINST MEDICAL ADVICE DS: Data Data Completed and Pending Pending studies at discharge: Pending at discharge 09/17/21 16:21 Cytology [PTH] Stat Labs on day of discharge: Laboratory Results - last 24 hr 09/17/21 09/17/21 09/17/21 16:49 20:47 Unknown POC Glucose 183 H 295 H CSF Tube Number CSF Volume CSF Appearance CSF Color CSF WBC CSF RBC CSF Neutrophils CSF Lymphocytes CSF Monocytes % CSF Appearance (b) CSF Glucose CSF Total Protein CSF C.neoform/gat PCR Not Detected CSF CMV DNA (PCR) Not Detected CSF Enterovirus (PCR) Not Detected CSF E. coli K1 (PCR) Not Detected CSF H. influenzae (PCR) Not Detected CSF HSV I (PCR) Not Detected CSF HSV II (PCR) Not Detected CSF HHV 6 (PCR) Not Detected CSF L.monocytogenes PCR Not Detected CSF N. meningitidis PCR Not Detected CSF Parechovirus (PCR) Not Detected CSF S. agalactiae (PCR) Not Detected CSF S. pneumoniae (PCR) Not Detected CSF VZV (PCR) Not Detected 09/17/21 09/17/21 09/17/21 Unknown Unknown Unknown POC Glucose CSF Tube Number 3 4 1 CSF Volume 3.0 3.0 CSF Appearance CLEAR CLEAR CSF Color COLORLESS COLORLESS CSF WBC 5 1 CSF RBC 425 176 CSF Neutrophils 50 10 CSF Lymphocytes 50 60 CSF Monocytes % 30 CSF Appearance (b) Clear, Colorless CSF Glucose 126 CSF Total Protein 54.0 H CSF C.neoform/gat PCR CSF CMV DNA (PCR) CSF Enterovirus (PCR) CSF E. coli K1 (PCR) CSF H. influenzae (PCR) CSF HSV I (PCR) CSF HSV II (PCR) CSF HHV 6 (PCR) CSF L.monocytogenes PCR CSF N. meningitidis PCR CSF Parechovirus (PCR) CSF S. agalactiae (PCR) CSF S. pneumoniae (PCR) CSF VZV (PCR) 09/18/21 09/18/21 07:27 11:01 POC Glucose 233 H 310 H CSF Tube Number CSF Volume CSF Appearance CSF Color CSF WBC CSF RBC CSF Neutrophils CSF Lymphocytes CSF Monocytes % CSF Appearance (b) CSF Glucose CSF Total Protein CSF C.neoform/gat PCR CSF CMV DNA (PCR) CSF Enterovirus (PCR) CSF E. coli K1 (PCR) CSF H. influenzae (PCR) CSF HSV I (PCR) CSF HSV II (PCR) CSF HHV 6 (PCR) CSF L.monocytogenes PCR CSF N. meningitidis PCR CSF Parechovirus (PCR) CSF S. agalactiae (PCR) CSF S. pneumoniae (PCR) CSF VZV (PCR) Preliminary micro results at discharge 09/17/21 Unknown CSF Culture - Preliminary Cerebrospinal Fluid Culture in progress. Discharge Plan Discharge Anticipated Discharge Date/Time: 09/18/21 14:12 Patient Disposition: Left Against Medical Advice Discharge Diagnosis: Unsteady gait weakness Referrals: Po,Gurdeep Del Angel MD [Primary Care Provider] - 1 Week Discharge Medications: New aspirin 81 mg Tablet,Delayed Release (Dr/Ec) 81 mg PO DAILY Qty: 30 0RF atorvastatin 80 mg Tablet 80 mg PO BEDTIME Qty: 30 0RF verapamil 40 mg Tablet 40 mg PO BID Qty: 60 0RF Protocol: Hold for SBP/HR < HOLD for SBP < : 90 HOLD for HR < : 60 Continued (DME) pen needle, diabetic [BD Ultra-Fine Short Pen Needle] 31 gauge x 5/16 needle See Rx Instructions .ROUTE .MEDSUPPLY Qty: 50 5RF Rx Instructions: As directed daily with insulin pen omeprazole 20 mg capsule,delayed release(DR/EC) 20 mg PO DAILY Qty: 90 2RF (DME) FreeStyle [place] 14 Day Sensor Kit See Rx Instructions .ROUTE .MEDSUPPLY Qty: 6 3RF Rx Instructions: As directed (DME) FreeStyle [place] 14 Day [place] Misc See Rx Instructions .ROUTE .MEDSUPPLY Qty: 1 0RF Rx Instructions: As directed Jardiance 25 mg tablet 25 mg PO DAILY Qty: 90 3RF gabapentin 100 mg capsule 100 mg PO BID 30 Days Qty: 180 0RF insulin aspart U-100 [Novolog Flexpen U-100 Insulin] 100 unit/mL (3 mL) insulin pen 1 sliding scale dose subcut USEASDIRECTD Qty: 15 11RF Rx Instructions: according to sliding scale subcutaneously 3 times a day; sliding scale given 151-230 2 units, 231-280 4 units, 281-330 6 units, 331-380 8 units and > 380 10 units trazodone 50 mg tablet 2 tab PO BEDTIME meloxicam [Mobic] 7.5 mg tablet 1 tab PO DAILY quetiapine [Seroquel] 400 mg tablet 1 tab PO BEDTIME quetiapine 100 mg tablet 1 tab PO BEDTIME insulin glargine [Lantus Solostar U-100 Insulin] 100 unit/mL (3 mL) insulin pen 25 unit subcut QAM clonazepam 1 mg tablet 1 mg PO BID Rx Instructions: 2 TABS in the AM and 1 Tab in the PM venlafaxine [Effexor XR] 150 mg capsule,extended release 24hr 300 mg PO DAILY clonidine HCl 0.2 mg tablet 0.2 mg PO DAILY albuterol sulfate [ProAir HFA] 90 mcg/actuation HFA aerosol inhaler 2 puff inhalation Q6H PRN (Reason: shortness of breath or wheezing) Qty: 8.5 0RF budesonide-formoterol [Symbicort] 160-4.5 mcg/actuation HFA aerosol inhaler 2 puff inhalation BID Qty: 10.2 9RF Discharge Orders: Discharge Order (Routine); Ordered 09/18/21 Ordered By: Angela Matt Diet: Advance to usual diet Activity on Discharge: As tolerated Activity Restrictions/Additional Instructions: Your blood work and head CT were unremarkable. You need to have close follow-up with her doctor If symptoms persist or worsen please return to the emergency department Care Plan Goals: Left against medical advice Health Concerns: Unsteady gait weakness Plan of Treatment: Left against medical advice Return to the emergency department if symptoms persist or worsen Assessment: See discharge summary Discharge Date/Time: 09/18/21 14:30
--- NOTE | 2021-09-18 14:23 | MHC.CM.PN ---
PT LEFT AGAINST MEDICAL ADVICE
--- NOTE | 2021-09-18 14:29 | PC.NURSE ---
Pt was become more distressed about not having results from her LP and that a psych consult was recommended. Pt stated that she has her own psych and prescriber and just wants to go home. Angela Matt at bedside to discuss with pt. Pt verbalized understanding of leaving AMA: that it is against the advice of the health care provider and that [facility] consequences of her leaving AMA.
[2021-09-19 06:29] LABS: Oligoclonal Serum Yes
[2021-09-20 16:22] LABS: Albumin 3.6 g/dL (3.5-5.2); Albumin, CSF 35.5 mg/dL (8.0-42.0); IgG 1480 mg/dL (600-1640); IgG Synthesis Rate -4.6 mg/24 h (-9.9-3.3); IgG, CSF 6.6 mg/dL (0.8-7.7)
[2021-09-24 16:07] LABS: Myelin Basic Protein <2.0 mcg/L (2.0-4.0)
[2021-10-04 11:03] LABS: Alpha-2-Globulin,CSF 7.7; Gamma Globulin 9.9
[2021-10-04 11:04] LABS: Albumin, CSF 61.1; Alpha-1-Globulin,CSF 2.7; Total Protein, CSF 63
[2021-10-04 11:06] LABS: Lyme IgG CSF Immunoblot NO BANDS DETECTED
[2021-10-04 11:07] LABS: Lyme IgM CSF Immunoblot NO BANDS DETECTED
[2021-10-04 11:08] LABS: VDRL Qualitative CSF NONREACTIVE
== END 2021-09-18 14:30 | disposition left against medical advice (07) | DRG 882 ==
LOC: HO.ED 19:05 → HO.EDOVER 09-13 01:08 → HO.IMC 09-13 01:57 → HO.EDOVER 09-13 05:52 → HO.IMC 09-13 05:52
PROVIDERS: Physician Assistant; Physician Assistant Medical; Radiology Diagnostic Radiology; Admitting Provider Internal Medicine; Emergency Provider Internal Medicine; PCP Internal Medicine; Visit Provider Nurse Practitioner Acute Care
PROC: 009U3ZZ Drainage of Spinal Canal, Percutaneous Approach (ICD-10-PCS; CPT 62270; principal; 2021-09-17 15:30)
DX: F45.9 Somatoform disorder, unspecified (principal); J45.20 Mild intermittent asthma, uncomplicated; F17.210 Nicotine dependence, cigarettes, uncomplicated; Z71.6 Tobacco abuse counseling; F41.9 Anxiety disorder, unspecified; F32.A Depression, unspecified; I10 Essential (primary) hypertension; K21.9 Gastro-esophageal reflux disease without esophagitis; E66.9 Obesity, unspecified; F43.10 Post-traumatic stress disorder, unspecified; E11.9 Type 2 diabetes mellitus without complications; Z20.822 Contact with and (suspected) exposure to COVID-19; Z88.0 Allergy status to penicillin; Z88.5 Allergy status to narcotic agent; Z79.4 Long term (current) use of insulin; Z79.899 Other long term (current) drug therapy
CPT/HCPCS: 36415; 62328; 70450; 70496; 70498; 70551; 71045; 72156; 80048; 80061; 80076; 80307; 81001; 82042; 82945; 82947; 83690; 83735; 83873; 83916; 84157; 84166; 84484; 84702; 85025; 85610; 86335; 86592; 86617; 87015; 87070; 87102; 87116; 87205; 87483; 87635; 88108; 89051; 93005; 93306; 97110; 97116; 97162; 97166; 97530; 99219; 99285; A9585; J1650

== ENCOUNTER → 2021-10-15 12:49 | Outpatient (REF) | payer MEDICARE, MEDICAID, SELFPAY | LOC: HO.SL 12:49 | PROVIDERS: PCP Internal Medicine; Visit Provider Internal Medicine | DX: G47.10 Hypersomnia, unspecified (principal) | CPT/HCPCS: 95806 ==

== ENCOUNTER 2021-10-22 15:31 | Emergency (ER) | payer MEDICARE, MEDICAID, SELFPAY ==
--- NOTE | ~2021-10-22 | CT_ITS ---
EXAMINATION: CT ANGIOGRAM HEAD CT ANGIOGRAM NECK CLINICAL INFORMATION: Left-sided arm numbness. COMPARISON: CT head from 10/22/2021. Brain MRI from 09/15/2021. CTA had and neck from 09/12/2021. TECHNIQUE: Initial noncontrast brazing furnace operator imaging of the head and neck was performed. Comparison is made with noncontrast head CT from earlier today. Test bolus sequences followed by intravenous administration 70 mL of Omnipaque 350. Helical imaging was performed in the axial plane from the aortic arch to the skull vertex. Delayed postcontrast imaging of the head was also performed. The data was processed at the hematology technologist's workstation for generation of MIP sequences. Angled MIPs and volume rendered reformatted images were also generated at an offline 3D workstation. Stenoses are assessed in accordance with NASCET criteria unless otherwise indicated. This CT examination was performed using dose optimization techniques as appropriate, variously including the following: *Automated exposure control. *Adjustment of mA and/or kV according to patient size (this includes techniques or standardized protocols for targeted exams where dose is matched to indication/reason for exam; i.e. extremities or head). *Use of iterative reconstruction technique. DLP: 1531 mGy-cm FINDINGS: CT Head: There is no evidence of acute intracranial hemorrhage or edematous territorial infarction. There is no abnormal attenuation within the brain parenchyma. Alejandre-white matter differentiation is preserved. The ventricles are normal in size and configuration. No evidence for obstructive hydrocephalus. No abnormal mass effect or midline shift. No extra-axial fluid collections. No pathologic intra-axial enhancement or regional oligemia. No acute soft tissue or osseous abnormalities. Moderate mucosal thickening of the left maxillary sinus. Otherwise, mild mucosal thickening of the remaining paranasal sinuses. Multifocal odontogenic enamel erosions. The mastoid air cells and middle ear cavities are clear. Moderate degenerative arthropathy of the temporomandibular joints. CT Neck: Nonspecific mildly prominent upper cervical chain lymph nodes, measuring up to 1.6 cm in left level IIa and 1.4 cm in left level IIb processes similar to prior exam). The thyroid gland and remaining cervical soft tissues are within normal limits. Moderate degenerative disc disease at C6-C7 with disc/osteophyte complex formation. Otherwise, mild multilevel degenerative spondyloarthropathy of the cervical spine. CT Upper Chest: The visualized lung apices and upper mediastinum are within normal limits. Neck CTA: Aortic Arch: Normal contour and caliber. Classic 3 vessel branching pattern of the aortic arch. Great Vessel Origins: No significant stenosis of the branch origins. Right Common Carotid Artery: No focal stenosis or occlusion. Cervical Right Internal Carotid Artery: Mild lipid rich atherosclerotic disease of the carotid bulb and proximal internal carotid artery without flow-limiting stenosis. Left Common Carotid Artery: No focal stenosis or occlusion. Cervical Left Internal Carotid Artery: Mild lipid rich atherosclerotic disease of the carotid bulb and proximal internal carotid artery without flow-limiting stenosis. Cervical Right Vertebral Artery: Co-dominant. No focal stenosis or occlusion. Cervical Left Vertebral Artery: Co-dominant. No focal stenosis or occlusion. Brain CTA: Intracranial Internal Carotid Arteries: No focal stenosis or occlusion. Right Anterior Cerebral Artery: Normal A1 segment. Normal opacification of the distal REESE segments. Left Anterior Cerebral Artery: Normal A1 segment. Normal opacification of the distal REESE segments. Anterior Communicating Artery: Normal. Right Middle Cerebral Artery: Normal M1 segment of the MCA without focal stenosis or occlusion. Normal arborization of the distal segments. Left Middle Cerebral Artery: Normal M1 segment of the MCA without focal stenosis or occlusion. Normal arborization of the distal segments. Right Vertebral Artery: Normal V4 segment. Normal opacification of the proximal segments of the posterior inferior cerebellar artery. Left Vertebral Artery: Normal V4 segment. Normal opacification of the proximal segments of the posterior inferior cerebellar artery. Basilar Artery: Normal without focal stenosis or occlusion. Normal appearance of the proximal superior cerebellar arteries. Right Posterior Cerebral Artery: Normal P1 segment. Normal opacification of the distal ELECTRICITY TRADING ANALYST segments. Left Posterior Cerebral Artery: Normal P1 segment. Normal opacification of the distal ELECTRICITY TRADING ANALYST segments. Normal opacification of the superior sagittal, straight, transverse, and sigmoid sinuses. CT/CT angio head neck stroke IMPRESSION: 1. No evidence of acute intracranial hemorrhage or edematous territorial infarction. 2. CTA of the head and neck without proximal occlusion or flow-limiting stenosis. 3. Nonspecific mildly prominent upper cervical chain lymphadenopathy, similar to prior exam. Moderate odontogenic and left maxillary sinus disease.
--- NOTE | ~2021-10-22 | CT_ITS ---
EXAMINATION: CT HEAD WITHOUT CONTRAST (STROKE PROTOCOL) CLINICAL INFORMATION: Stroke protocol. Left arm numbness COMPARISON: Selected images of the brain MRI of 09/15/2021, CT head 09/12/2021 TECHNIQUE: Contiguous axial imaging was performed from the skull base to vertex without intravenous administration of contrast. This CT examination was performed using dose optimization techniques as appropriate, variously including the following: *Automated exposure control *Adjustment of mA and/or kV according to patient size (this includes techniques or standardized protocols for targeted exams where dose is matched to indication/reason for exam; i.e. extremities or head) *Use of iterative reconstruction technique DLP: 706 mGy-cm FINDINGS: There is no evidence of acute intracranial hemorrhage, midline shift or mass effect. Alejandre to white matter differentiation is well preserved. No evidence of acute territorial infarction. No definite abnormal parenchymal attenuation is noted. Ventricles and sulci are normal. No abnormal extra-axial fluid collection. Osseous structures are unremarkable. No significant calvarial soft tissue swelling or hematoma. Moderate mucosal thickening is noted in the left maxillary sinus. The remainder of the paranasal sinuses are well-aerated. Mastoid air cells and middle ear cavities are well-aerated. CT/CT head for stroke IMPRESSION: No evidence of acute intracranial abnormality. Specifically, there is no evidence of acute intracranial hemorrhage or acute territorial edematous infarction. Moderate mucosal thickening in the left maxillary sinus is new compared to previous CT. This critical result was discussed with Dr. Beth Brown at 15:47 hours on 10/22/2021. It was ascertained that the content and urgency of the report was understood at the time of direct communication.
[2021-10-22 15:43] LABS: Glucose, Whole Blood 209 mg/dL (60-115)
--- NOTE | 2021-10-22 15:44 | ECG_ITS ---
Test Reason : ?STROKE Blood Pressure : / mmHG Vent. Rate : 116 BPM Atrial Rate : 116 BPM P-R Int : 136 ms QRS Dur : 074 ms QT Int : 330 ms P-R-T Axes : 052 010 011 degrees QTc Int : 458 ms Poor data quality, interpretation may be adversely affected Sinus tachycardia Otherwise normal ECG When compared with ECG of 12-SEP-2021 12:06, Heart rate has increased Referred By: Beth Brown Electronically Signed By:VLADIMIR ABRAHAM
[2021-10-22 15:46] LABS: Prothrombin Time Whole Bld POC 11.4 sec (11.1-13.5); ~PT, ~INR - Anti Coag Clinic 0.9 (0.9-1.1)
--- NOTE | 2021-10-22 15:50 | ED.NEUROSD ---
HPI - Neuro Symptoms/Deficit General Chief Complaint: Stroke Stated Complaint: stroke? Time Seen by Provider: 10/22/21 15:33 Source: patient and EMS Mode of arrival: EMS Limitations: no limitations History of Present Illness HPI Narrative: Patient comes to the emergency room complaining of twitching, spasms in her lower extremities especially the left leg. Numbness in the left arm. Patient states that all of her symptoms started around 8 in the morning when she woke up (7hr 50 min ago), her symptoms/spasms got worse approximately 4 hours ago. Patient states that she has blurriness in her right eye Patient presented similarly on 09/12/2021 and left against medical advise on 09/18/2021. During the hospitalization last month, her diagnosis was right-sided weakness with psychosomatic features, MRI showed no acute stroke with nonspecific T2 FLAIR signal hyperintensity within the periventricular white matter, echocardiogram with bubble study negative, telemetry showed no arrhythmias, patient left before psychiatry could see her Related Data Home Medications Medication Instructions Recorded Confirmed clonazepam 1 mg tablet 1 mg PO BID 12/31/19 09/27/21 venlafaxine 150 mg 300 mg PO DAILY 06/01/20 09/27/21 capsule,extended release 24 hr (Effexor XR) clonidine HCl 0.2 mg tablet 0.2 mg PO DAILY 08/07/21 09/27/21 insulin glargine 100 unit/mL (3 25 unit subcut QAM 09/12/21 09/27/21 mL) subcutaneous pen (Lantus Solostar U-100 Insulin) meloxicam 7.5 mg tablet (Mobic) 1 tab PO DAILY 09/12/21 09/27/21 quetiapine 100 mg tablet 1 tab PO BEDTIME 09/12/21 09/27/21 quetiapine 400 mg tablet (Seroquel) 1 tab PO BEDTIME 09/12/21 09/27/21 trazodone 50 mg tablet 2 tab PO BEDTIME 09/12/21 09/27/21 Previous Rx's Medication Instructions Recorded pen needle, diabetic 31 gauge x #50 ea 05/26/2007/02 (BD Ultra-Fine Short Pen Needle) omeprazole 20 mg capsule,delayed 20 mg PO DAILY #90 caps 01/29/21 release flash glucose scanning reader #1 ea 05/31/21 (FreeStyle Clare 14 Day [place]) flash glucose sensor (FreeStyle #6 kits 05/31/21 Clare 14 Day Sensor kit) empagliflozin 25 mg tablet 25 mg PO DAILY #90 tabs 06/04/21 (Jardiance) gabapentin 100 mg capsule 100 mg PO BID 30 days #180 caps 06/15/21 albuterol sulfate 90 mcg/actuation 2 puff inhalation Q6H PRN 08/07/21 aerosol inhaler (ProAir HFA) shortness of breath or wheezing #8.5 grams budesonide-formoterol HFA 160 2 puff inhalation BID #10.2 grams 08/07/21 mcg-4.5 mcg/actuation aerosol inhaler (Symbicort) insulin aspart U-100 100 unit/mL 1 sliding scale dose subcut 08/13/21 (3 mL) subcutaneous pen (Novolog USEASDIRECTD #15 mL Flexpen U-100 Insulin aspart) aspirin 81 mg tablet,delayed 81 mg PO DAILY #30 tabs 09/27/21 release (Adult Low Dose Aspirin) atorvastatin 80 mg tablet 80 mg PO DAILY 30 days #30 tabs 09/27/21 apfffbcgqq-legpbgesfgdym-yvhtkbzj 1 cap PO Q8H PRN pain #20 caps 09/27/21 50 mg-300 mg-40 mg capsule (Fioricet) nicotine (polacrilex) 2 mg buccal 2 mg buccal Q6H PRN nicotine 09/27/21 lozenge cravings #72 ea sulfamethoxazole 800 1 tab PO BID #14 tabs 10/10/21 mg-trimethoprim 160 mg tablet (Bactrim DS) Allergies Allergy/AdvReac Type Severity Reaction Status Date / Time morphine [MORPHINE] Allergy Intermediate NAUSEA, Verified 09/27/21 16:05 rash oxycodone [From PERCOCET] Allergy Intermediate ITCHY, rash Verified 09/27/21 16:05 penicillin V Allergy Intermediate hives Verified 09/27/21 16:05 simvastatin Allergy Intermediate rash Verified 09/27/21 16:05 hydrocodone [From VICODIN] Allergy Mild RASH Verified 09/27/21 16:05 amoxicillin [Amoxicillin] Allergy Unknown UNKNOWN Verified 09/27/21 16:05 Review of Systems Review of Systems: Constitutional : No Weight loss, No Fever, No Chills, No Night Sweats, No Fatigue, No Malaise ENT/Mouth : No Hearing loss, No Ear Pain, No Nasal Congestion, No Sinus Pain, No Hoarseness, No sore throat, No Rhinorrhea, No Swallowing Difficulty Eyes: No Eye Pain, complaining of right eye twitching and blurred vision Cardiovascular : No Chest Pain, No SOB, No Dyspnea on Exertion, No Orthopnea, No Edema, No Palpitations Respiratory : No Cough, No Sputum, No Wheezing, No Smoke Exposure, No Dyspnea Gastrointestinal : No Nausea, No Vomiting, No Diarrhea, No Constipation, No abdominal Pain, No Hematochezia, No Melena Genitourinary : no irregular bleeding, No Dysuria, No Urinary Frequency, No Hematuria, No Urinary Incontinence, No Urgency, No Flank Pain, No Urinary Flow Changes, No Hesitancy Musculoskeletal : No joint pain, No Myalgias, No Joint Swelling Skin : No Skin Lesions, No rash Neuro : No headache, no dizziness, complaining of left arm numbness, complaining of right sided blurriness Psych : No Anxiety/Panic, No Depression, No SI/HI/AH/VH, No Social Issues, Heme/Lymph: No Bruising, No Bleeding,No Lymphadenopathy Endocrine : No Polyuria, No Polydipsia, No Temperature Intolerance PMFSH Past Medical History Medical History Anxiety and depression Asthma Crohn's disease GERD (gastroesophageal reflux disease) Hypercholesterolemia Hypertension IBS (irritable bowel syndrome) Migraine Obesity (BMI 30-39.9) OCD (obsessive compulsive disorder) Panic disorder PTSD (post-traumatic stress disorder) Seizure disorder Tobacco abuse Type 2 diabetes mellitus with hyperglycemia, with long-term current use of insulin Surgical History H/O arthroscopy H/O bilateral breast reduction surgery History of ankle surgery Previous section Family History Family History Father CVD (cerebrovascular disease) Diabetes Hypertension Mother Depression Chronic mental illness Maternal Grandmother Myocardial infarction CVD (cerebrovascular disease) Breast cancer Maternal Aunt Liver cancer Social History Social History Housing: Apartment Alcohol intake: never Patient Tobacco Use Status: Current everyday Tobacco user Tobacco use type: Cigarette Cigarettes Per Day: 2 e-Cigarette/Vaping Use: Never Used Substance Use Type: Marijuana Advance Directives: No Advance Directives Information Provided: No service: No Current occupational status: unemployed Current occupation: left handed Cognitive needs: Yes Hearing needs: No Vision needs: Yes Physical Exam Vital Signs: Vital Signs: Last Vital Signs Temp 98.3 F 10/22/21 18:37 Pulse 98 10/22/21 18:37 Resp 17 10/22/21 18:37 BP 145/77 H 10/22/21 18:37 Pulse Ox 95 10/22/21 18:37 O2 Del Method 10/22/21 18:37 BMI result Body Mass Index 35.7 Const: Other: Appearance: Alert. Oriented X3. No acute distress. Eyes: Pupils equal, round and reactive to light. ENT: Pharynx normal. Neck: Normal inspection. Neck supple. No lymph nodes noted. No crepitus CVS: Normal heart rate and rhythm. Pulses normal. Normal S1 and S2 Respiratory: No respiratory distress. Breath sounds normal. No Wheezing. No rales Abdomen: Soft and nontender. No rigidity. No distention. Skin: Skin warm and dry. Normal skin color. Normal skin turgor. Extremities: No lower extremity edema. Patient flexing and extending and shaking her left leg Neuro: Oriented X 3. No motor deficit. No pronator drift, normal strength in both upper and lower extremities 5/5, Moving all extremities. No slurred speech. CN 2 through 12 grossly intact Psych: Cooperative, very anxious Course Course Course Narrative: Symptoms started 8 hours ago, patient is outside of the window of treatment for tPA. Also, there is no indication for treatment at this time, patient's NIH score is 0 CT scan of the head within normal limits. CTA pending. Patient does not have any headache Patient's visual acuity test on the right is 20/50, left 20/[address] and CTA are negative. On her previous admission, patient was evaluated by Dr. 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 His recommendations were as follows: 1. Baby aspirin daily 2.? Statin, 3.? Verapamil 40 mg twice a day for blood pressure migraine control 4.? Sugar control 5.? Weight reduction 6. Complete avoidance of all drug abuse including marijuana and rwif-clu-samcpuj medicines and 7.? Proper reassurance and education about stroke risk factors and the control, 8. Fioricet p.r.n. for headache pain control.? She can follow-up with her outpatient neurologist. Patient states that she is compliant with her medications. I discussed the patient with Dr. Bishop. As mentioned above, patient had a thorough workup 1 month ago, MRI showed no acute stroke with nonspecific T2 FLAIR signal hyperintensity within the periventricular white matter, echocardiogram with bubble study negative, telemetry showed no arrhythmias. Per Dr. Bishop, at this time, the workup from the hospitalist standpoint is complete. The only thing that is missing is psychiatry consult. Patient left against medical advice the last time because she refused to be seen by Psychiatry. I offered to the patient a psychiatry consult as well, patient declined. Per the hospitalist team, admission is not necessary at this time. After 1 dose of p.o. Valium, the Patient's symptoms resolved. Patient's vision back to normal, patient no longer having leg spasms or shaking. Patient able to ambulate. I discussed with the patient that if she feels weak, we can have physical therapy and case management evaluate her in the morning, once again patient declined psychiatry/radiation consult. Patient requested to be discharged home. I discussed with the patient, that she needs to stop using THC, as it may be causing her symptoms, as previously noted by Dr. Juan Pablo REESE - Neuro Symptoms/Deficit Lab Data Result diagrams: 10/22/21 16:09 10/22/21 16:09 Labs: Lab Results 10/22/21 10/22/21 10/22/21 Range/Units 15:38 15:39 16:09 WBC 16.1 H (4.8-10.8) X10*3/uL RBC 4.83 (4.20-5.50) X10*6/uL Hgb 14.0 (12.0-16.0) g/dl Hct 42.6 (37.0-47.0) % MCV 88.2 (80.0-98.0) fL MCH 29.0 (27.0-33.0) pg MCHC 32.9 (31.0-35.0) g/dl RDW 13.0 (11.0-16.0) % Plt Count 233 (160-400) X10*3/uL MPV 10.4 (9.4-12.3) fL Immature Gran % (Auto) 0.5 H (0.0-0.4) % Neut % (Auto) 67.2 (45-73) % Lymph % (Auto) 23.9 (20-40) % Bartholomew % (Auto) 6.8 (2-11) % Eos % (Auto) 1.2 (0-4) % Baso % (Auto) 0.4 (0-2) % Lymph # (Auto) 3.8 (1.2-4.9) X10*3/uL Bartholomew # (Auto) 1.1 (0.1-1.2) X10*3/uL Eos # (Auto) 0.2 (0.0-0.4) X10*3/uL Baso # (Auto) 0.1 (0.0-0.2) X10*3/uL Abs Immat Gran (auto) 0.08 H (0.00-0.03) X10*3/uL Absolute Neuts (auto) 10.8 H (2.0-8.3) x10*3/uL Absolute Nucleated RBC 0.000 (0.0-0.012) X10*3/uL Nucleated RBC % (auto) 0.0 (0.0-0.2) /100WBC Whole Blood PT 11.4 (11.1-13.5) sec Whole Blood INR 0.9 (0.9-1.1) Sodium (135-145) mmol/L Potassium (3.3-5.1) mmol/L Chloride (96-108) mmol/L Carbon Dioxide (22-29) mmol/L Anion Gap (12-20) BUN (9-16) mg/dL Creatinine (0.5-1.4) mg/dL Estim Creat Clear Calc Estimated GFR POC Glucose 209 H (60-115) mg/dL Random Glucose (60-115) mg/dL Calcium (8.4-10.2) mg/dL Magnesium (1.6-2.6) mg/dL Total Bilirubin (0.0-1.0) mg/dL Direct Bilirubin (0.0-0.5) mg/dL AST (5-31) U/L ALT (0-31) U/L Alkaline Phosphatase (39-117) U/L Troponin I High Sens (<3.5-17.0) ng/L Total Protein (6.5-8.0) g/dL Albumin (3.5-5.0) g/dL Beta HCG, Quant mIU/mL Urine Color Urine Appearance Urine pH (5.0-9.0) Ur Specific [place] (1.005-1.025) Urine Protein (Neg-Trace) mg/dL Urine Glucose (UA) (Negative) mg/dL Urine Ketones (Negative) mg/dL Urine Blood (Negative) Urine Nitrite (Negative) Ur Leukocyte Esterase (Negative) Urine RBC (0-2) /HPF Urine WBC (0-5) /HPF Ur Squamous Epith Cells (0-2) /HPF Urine Bacteria (None Seen) Hyaline Casts (0-2) /LPF Urine Opiates Screen (Not Detect) Urine Fentanyl Screen (Not Detect) Ur Barbiturates Screen (Not Detect) Ur Phencyclidine Scrn (Not Detect) Ur Amphetamines Screen (Not Detect) U Benzodiazepines Scrn (Not Detect) Urine Cocaine Screen (Not Detect) U Marijuana (THC) Screen (Not Detect) Ethyl Alcohol mg/dL COVID-19 (ALEX) (Negative) COVID-19 Clin Com 10/22/21 10/22/21 10/22/21 Range/Units 16:09 16:09 16:09 WBC (4.8-10.8) X10*3/uL RBC (4.20-5.50) X10*6/uL Hgb (12.0-16.0) g/dl Hct (37.0-47.0) % MCV (80.0-98.0) fL MCH (27.0-33.0) pg MCHC (31.0-35.0) g/dl RDW (11.0-16.0) % Plt Count (160-400) X10*3/uL MPV (9.4-12.3) fL Immature Gran % (Auto) (0.0-0.4) % Neut % (Auto) (45-73) % Lymph % (Auto) (20-40) % Bartholomew % (Auto) (2-11) % Eos % (Auto) (0-4) % Baso % (Auto) (0-2) % Lymph # (Auto) (1.2-4.9) X10*3/uL Bartholomew # (Auto) (0.1-1.2) X10*3/uL Eos # (Auto) (0.0-0.4) X10*3/uL Baso # (Auto) (0.0-0.2) X10*3/uL Abs Immat Gran (auto) (0.00-0.03) X10*3/uL Absolute Neuts (auto) (2.0-8.3) x10*3/uL Absolute Nucleated RBC (0.0-0.012) X10*3/uL Nucleated RBC % (auto) (0.0-0.2) /100WBC Whole Blood PT (11.1-13.5) sec Whole Blood INR (0.9-1.1) Sodium 136 (135-145) mmol/L Potassium 3.9 (3.3-5.1) mmol/L Chloride 100 (96-108) mmol/L Carbon Dioxide 25 (22-29) mmol/L Anion Gap 15 (12-20) BUN 8 L D (9-16) mg/dL Creatinine 0.72 (0.5-1.4) mg/dL Estim Creat Clear Calc 112.6 Estimated GFR > 60 POC Glucose (60-115) mg/dL Random Glucose 199 H (60-115) mg/dL Calcium 8.6 (8.4-10.2) mg/dL Magnesium 1.7 (1.6-2.6) mg/dL Total Bilirubin 0.2 (0.0-1.0) mg/dL Direct Bilirubin < 0.2 (0.0-0.5) mg/dL AST 21 D (5-31) U/L ALT 18 (0-31) U/L Alkaline Phosphatase 82 (39-117) U/L Troponin I High Sens < 3.5 (<3.5-17.0) ng/L Total Protein 7.4 (6.5-8.0) g/dL Albumin 3.8 (3.5-5.0) g/dL Beta HCG, Quant < 2 mIU/mL Urine Color Urine Appearance Urine pH (5.0-9.0) Ur Specific [place] (1.005-1.025) Urine Protein (Neg-Trace) mg/dL Urine Glucose (UA) (Negative) mg/dL Urine Ketones (Negative) mg/dL Urine Blood (Negative) Urine Nitrite (Negative) Ur Leukocyte Esterase (Negative) Urine RBC (0-2) /HPF Urine WBC (0-5) /HPF Ur Squamous Epith Cells (0-2) /HPF Urine Bacteria (None Seen) Hyaline Casts (0-2) /LPF Urine Opiates Screen (Not Detect) Urine Fentanyl Screen (Not Detect) Ur Barbiturates Screen (Not Detect) Ur Phencyclidine Scrn (Not Detect) Ur Amphetamines Screen (Not Detect) U Benzodiazepines Scrn (Not Detect) Urine Cocaine Screen (Not Detect) U Marijuana (THC) Screen (Not Detect) Ethyl Alcohol mg/dL COVID-19 (ALEX) Negative (Negative) COVID-19 Clin Com See Note 10/22/21 10/22/21 10/22/21 Range/Units 16:09 17:46 17:46 WBC (4.8-10.8) X10*3/uL RBC (4.20-5.50) X10*6/uL Hgb (12.0-16.0) g/dl Hct (37.0-47.0) % MCV (80.0-98.0) fL MCH (27.0-33.0) pg MCHC (31.0-35.0) g/dl RDW (11.0-16.0) % Plt Count (160-400) X10*3/uL MPV (9.4-12.3) fL Immature Gran % (Auto) (0.0-0.4) % Neut % (Auto) (45-73) % Lymph % (Auto) (20-40) % Bartholomew % (Auto) (2-11) % Eos % (Auto) (0-4) % Baso % (Auto) (0-2) % Lymph # (Auto) (1.2-4.9) X10*3/uL Bartholomew # (Auto) (0.1-1.2) X10*3/uL Eos # (Auto) (0.0-0.4) X10*3/uL Baso # (Auto) (0.0-0.2) X10*3/uL Abs Immat Gran (auto) (0.00-0.03) X10*3/uL Absolute Neuts (auto) (2.0-8.3) x10*3/uL Absolute Nucleated RBC (0.0-0.012) X10*3/uL Nucleated RBC % (auto) (0.0-0.2) /100WBC Whole Blood PT (11.1-13.5) sec Whole Blood INR (0.9-1.1) Sodium (135-145) mmol/L Potassium (3.3-5.1) mmol/L Chloride (96-108) mmol/L Carbon Dioxide (22-29) mmol/L Anion Gap (12-20) BUN (9-16) mg/dL Creatinine (0.5-1.4) mg/dL Estim Creat Clear Calc Estimated GFR POC Glucose (60-115) mg/dL Random Glucose (60-115) mg/dL Calcium (8.4-10.2) mg/dL Magnesium (1.6-2.6) mg/dL Total Bilirubin (0.0-1.0) mg/dL Direct Bilirubin (0.0-0.5) mg/dL AST (5-31) U/L ALT (0-31) U/L Alkaline Phosphatase (39-117) U/L Troponin I High Sens (<3.5-17.0) ng/L Total Protein (6.5-8.0) g/dL Albumin (3.5-5.0) g/dL Beta HCG, Quant mIU/mL Urine Color Yellow Urine Appearance Clear Urine pH 7.0 (5.0-9.0) Ur Specific [place] >= 1.030 H (1.005-1.025) Urine Protein Negative (Neg-Trace) mg/dL Urine Glucose (UA) >=1000 H (Negative) mg/dL Urine Ketones Trace (Negative) mg/dL Urine Blood Negative (Negative) Urine Nitrite Negative (Negative) Ur Leukocyte Esterase Negative (Negative) Urine RBC 0-2 (0-2) /HPF Urine WBC 0-5 (0-5) /HPF Ur Squamous Epith Cells 3-5 (0-2) /HPF Urine Bacteria None Seen (None Seen) Hyaline Casts 0-2 (0-2) /LPF Urine Opiates Screen Not Detected (Not Detect) Urine Fentanyl Screen Not Detected (Not Detect) Ur Barbiturates Screen POSITIVE H (Not Detect) Ur Phencyclidine Scrn Not Detected (Not Detect) Ur Amphetamines Screen Not Detected (Not Detect) U Benzodiazepines Scrn Not Detected (Not Detect) Urine Cocaine Screen Not Detected (Not Detect) U Marijuana (THC) Screen POSITIVE H (Not Detect) Ethyl Alcohol < 10 mg/dL COVID-19 (ALEX) (Negative) COVID-19 Clin Com NIH Stroke Scale Internal: Initial- Upon Arrival Level of Consciousness: Alert Level of Consciousness Questions: Answers both questions correctly Level of Consciousness Commands: Performs both tasks correctly Best Gaze: Normal Visual: No visual loss (Complaining of blurriness) Facial Palsy: Normal Motor Arm (Right): No drift Motor Arm (Left): No drift Motor Leg (Right): No drift Motor Leg (Left): No drift Limb Ataxia: Absent Sensory: Normal Best Language: No aphasia Dysarthia: Normal Extinction and Inattention: No abnormality Score: 0 Discharge Plan 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 Please follow-up with your primary care physician tomorrow. If you have any worsening or new symptoms, please return to the emergency room or call 911 Prescriptions: No Action (DME) pen needle, diabetic [BD Ultra-Fine Short Pen Needle] 31 gauge x 5/16 needle See Rx Instructions .ROUTE .MEDSUPPLY Qty: 50 5RF Rx Instructions: As directed daily with insulin pen omeprazole 20 mg capsule,delayed release(DR/EC) 20 mg PO DAILY Qty: 90 2RF (DME) FreeStyle Clare 14 Day Sensor Kit See Rx Instructions .ROUTE .MEDSUPPLY Qty: 6 3RF Rx Instructions: As directed (DME) FreeStyle Clare 14 Day [place] Misc See Rx Instructions .ROUTE .MEDSUPPLY Qty: 1 0RF Rx Instructions: As directed Jardiance 25 mg tablet 25 mg PO DAILY Qty: 90 3RF gabapentin 100 mg capsule 100 mg PO BID 30 Days Qty: 180 0RF insulin aspart U-100 [Novolog Flexpen U-100 Insulin] 100 unit/mL (3 mL) insulin pen 1 sliding scale dose subcut USEASDIRECTD Qty: 15 11RF Rx Instructions: according to sliding scale subcutaneously 3 times a day; sliding scale given 151-230 2 units, 231-280 4 units, 281-330 6 units, 331-380 8 units and > 380 10 units sulfamethoxazole-trimethoprim [Bactrim DS] 800-160 mg tablet 1 tab PO BID Qty: 14 0RF trazodone 50 mg tablet 2 tab PO BEDTIME meloxicam [Mobic] 7.5 mg tablet 1 tab PO DAILY quetiapine [Seroquel] 400 mg tablet 1 tab PO BEDTIME quetiapine 100 mg tablet 1 tab PO BEDTIME insulin glargine [Lantus Solostar U-100 Insulin] 100 unit/mL (3 mL) insulin pen 25 unit subcut QAM clonazepam 1 mg tablet 1 mg PO BID Rx Instructions: 2 TABS in the AM and 1 Tab in the PM venlafaxine [Effexor XR] 150 mg capsule,extended release 24hr 300 mg PO DAILY nicotine (polacrilex) 2 mg lozenge 2 mg buccal Q6H PRN (Reason: nicotine cravings) Qty: 72 0RF aspirin [Adult Low Dose Aspirin] 81 mg tablet,delayed release (DR/EC) 81 mg PO DAILY Qty: 30 0RF gzyxiojwpa-qfvpceaghiwum-kyxv [Fioricet] 50-300-40 mg capsule 1 cap PO Q8H PRN (Reason: pain) Qty: 20 0RF atorvastatin 80 mg tablet 80 mg PO DAILY 30 Days Qty: 30 3RF clonidine HCl 0.2 mg tablet 0.2 mg PO DAILY albuterol sulfate [ProAir HFA] 90 mcg/actuation HFA aerosol inhaler 2 puff inhalation Q6H PRN (Reason: shortness of breath or wheezing) Qty: 8.5 0RF budesonide-formoterol [Symbicort] 160-4.5 mcg/actuation HFA aerosol inhaler 2 puff inhalation BID Qty: 10.2 9RF
[2021-10-22] MEDS: iohexoL 350 MG/ML 100 ML INFUS..BTL IV (15:53)
[2021-10-22 15:56] VITALS: BP 158/118; PULSE 110; O2SAT 97
[2021-10-22 16:12] VITALS: BP 165/99; PULSE 128; RESP 20; TEMP 36.8; O2SAT 98; BMI 35.7
[2021-10-22 16:13] LABS: MANUAL DIFF FLAG NO
[2021-10-22 16:14] LABS: Basophils Absolute Auto 0.1 X10*3/uL (0.0-0.2); Basophils Percent Auto 0.4 % (0-2); Eosinophils Absolute Auto 0.2 X10*3/uL (0.0-0.4); Eosinophils Percent Auto 1.2 % (0-4); Hematocrit 42.6 % (37.0-47.0); Imm Gran Abs Auto 0.08 X10*3/uL (0.00-0.03); Imm Gran Pct Auto 0.5 % (0.0-0.4); Lymphocytes Absolute Auto 3.8 X10*3/uL (1.2-4.9); Lymphocytes Percent Auto 23.9 % (20-40); Mean Corpuscular HGB Conc 32.9 g/dl (31.0-35.0); Mean Corpuscular Volume 88.2 fL (80.0-98.0); Mean Platelet Volume 10.4 fL (9.4-12.3); Monocytes Absolute Auto 1.1 X10*3/uL (0.1-1.2); Monocytes Percent Auto 6.8 % (2-11); Neutrophils Absolute Auto 10.8 x10*3/uL (2.0-8.3); Neutrophils Percent Auto 67.2 % (45-73); Platelet Count 233 X10*3/uL (160-400); Red Blood Count 4.83 X10*6/uL (4.20-5.50); White Blood Count 16.1 X10*3/uL (4.8-10.8)
[2021-10-22 16:27] LABS: Ethanol < 10 mg/dL
[2021-10-22 16:34] LABS: Alanine Aminotransferase 18 U/L (0-31); Albumin Level 3.8 g/dL (3.5-5.0); Alkaline Phosphatase 82 U/L (39-117); Anion Gap 15 (12-20); Aspartate Amino Transferase 21 U/L (5-31); Bilirubin Direct < 0.2 mg/dL (0.0-0.5); Bilirubin Total 0.2 mg/dL (0.0-1.0); Blood Urea Nitrogen 8 mg/dL (9-16); Calcium 8.6 mg/dL (8.4-10.2); Carbon Dioxide 25 mmol/L (22-29); Chloride 100 mmol/L (96-108); Creatinine Clr Calc Pharmacy 112.6; Estimated Glomerular Filt Rate > 60; Glucose Random 199 mg/dL (60-115); Magnesium 1.7 mg/dL (1.6-2.6); Potassium 3.9 mmol/L (3.3-5.1); Sodium 136 mmol/L (135-145); Total Protein 7.4 g/dL (6.5-8.0)
[2021-10-22 16:35] LABS: Troponin-I High Sensitivity < 3.5 ng/L (<3.5-17.0)
[2021-10-22 16:40] LABS: HCG Quantitative < 2 mIU/mL
[2021-10-22 16:47] LABS: COVID-19 Test Negative (Negative)
[2021-10-22] MEDS: diazePAM 2 MG TABLET PO (17:48)
[2021-10-22 17:52] LABS: Appearance Urine Clear; Color Urine Yellow; Glucose Urine UA >=1000 mg/dL (Negative); Leukocyte Esterase Urine Negative (Negative); Nitrite Urine Negative (Negative); Specific Gravity - Urine >= 1.030 (1.005-1.025); Urine Blood Negative (Negative); Urine Ketones Trace mg/dL (Negative); Urine Protein Negative (Neg-Trace)
[2021-10-22 17:57] LABS: Bacteria Urine None Seen (None Seen); Hyaline Casts Urine 0-2 /LPF (0-2); RBC Urine 0-2 /HPF (0-2); WBC Urine 0-5 /HPF (0-5)
--- NOTE | 2021-10-22 17:58 | PC.NURSE ---
tolerating po, able to drink fluids on own. pt only able to get over to commode using 1 standby assist. asking if she is going to be discharged. educated about need for further testing and assessment of effect of medications given. agreeable to care plan at this time.
[2021-10-22 18:08] LABS: Amphetamine Screen Urine Not Detected (Not Detect); Barbiturates, Urine POSITIVE (Not Detect); Benzodiazepines Screen Urine Not Detected (Not Detect); Cannabinoid Screen Urine POSITIVE (Not Detect); Cocaine Screen Urine Not Detected (Not Detect); Fentanyl, urine Not Detected (Not Detect); Opiate Screen Urine Not Detected (Not Detect); Phencyclidine Screen Urine Not Detected (Not Detect)
[2021-10-22 18:37] VITALS: BP 145/77; PULSE 98; RESP 17; TEMP 36.8; O2SAT 95
--- NOTE | 2021-10-22 19:56 | PC.NURSE ---
This rN ambulated with patient 50 ft-patient ambulated with stand by assistance of 1 person-gait is slow, but steady. patient report she uses a walker for short distances and a w/c for longer distances at home. Patient declined PT eval and requesting to be discharged home. Dr. Brown notified.
[2021-10-22 19:59] VITALS: BP 130/79; PULSE 98; RESP 16; TEMP 36.8; O2SAT 98
== END 2021-10-22 20:00 | disposition home or self-care (01) ==
PROVIDERS: Emergency Provider Emergency Medicine; PCP Internal Medicine
DX: I67.841 Reversible cerebrovascular vasoconstriction syndrome (principal); R20.0 Anesthesia of skin; Z20.822 Contact with and (suspected) exposure to COVID-19; E78.00 Pure hypercholesterolemia, unspecified; I10 Essential (primary) hypertension; E11.9 Type 2 diabetes mellitus without complications; F17.210 Nicotine dependence, cigarettes, uncomplicated; F12.90 Cannabis use, unspecified, uncomplicated; Z79.4 Long term (current) use of insulin; Z79.899 Other long term (current) drug therapy
CPT/HCPCS: 36415; 70450; 70496; 70498; 80048; 80076; 80307; 81001; 82077; 82947; 83735; 84484; 84702; 85025; 85610; 87635; 93005; 99285; Q9967

== ENCOUNTER → 2021-12-24 09:40 | Outpatient (BNVA) | payer MEDICARE, MEDICAID, SELFPAY | PROVIDERS: PCP Internal Medicine; Visit Provider Nurse Practitioner Family | DX: G47.33 Obstructive sleep apnea (adult) (pediatric) (principal) | CPT/HCPCS: 99202 ==

== ENCOUNTER 2022-03-09 15:51 | Emergency (ER) | payer MEDICARE, MEDICAID, SELFPAY ==
--- NOTE | ~2022-03-09 | XR_ITS ---
EXAMINATION: XR ANKLE, RIGHT CLINICAL INFORMATION: Pain after fall COMPARISON: November 04, 2020 TECHNIQUE: AP, lateral, and mortise views of the right ankle. FINDINGS: There is no evidence of acute fracture or dislocation of the right ankle. Ankle mortise appears intact. Secondary ossification center versus sequela of previous injury seen about the tip of the medial malleolus. Small Achilles calcaneal spur present. Mild soft tissue swelling about the lateral malleolus. XR/XR ankle RT min 3V IMPRESSION: No significant right ankle abnormality appreciated.
[2022-03-09 16:18] VITALS: BP 154/84; PULSE 98; RESP 16; TEMP 36.8; O2SAT 97; BMI 36.7
--- NOTE | 2022-03-09 16:18 | ED.LOWEXIN ---
HPI - Extremity Injury (Lower) General Chief Complaint: Extremity Problem <Betzy Tracey CNP - Last Filed: 03/09/22 16:21> Stated Complaint: fell right ankle pain <Betzy Tracey CNP - Last Filed: 03/09/22 16:21> Time Seen by Provider: 03/09/22 18:25 <Betzy Tracey CNP - Last Filed: 03/09/22 16:21> Source: patient <VIRI Glass - Last Filed: 03/09/22 19:06> Mode of arrival: ambulatory <VIRI Glass Last Filed: 03/09/22 19:06> Limitations: no limitations <VIRI Glass Last Filed: 03/09/22 19:06> History of Present Illness HPI Narrative: This a 41-year-old female hx anxiety, depression, DM presenting right ankle worsening over the past 4, patient tells me 4 months ago she slipped on ice, and since then she has been having right ankle pain and swelling. She tells me gets worse throughout the day. Denies numbness, tingling, fevers, chills, chest pain, shortness of breath, nausea, vomiting, headache, vision changes, dizziness, weakness. Patient has been ambulating well with past 4 months. No previous issues with right ankle. Denies numbness and tingling. No headstrike LOC not on thinners <VIRI Glass Last Filed: 03/09/22 19:06> Related Data Home Medications: Home Medications Medication Instructions Recorded Confirmed venlafaxine 150 mg 300 mg PO DAILY 06/01/20 09/27/21 capsule,extended release 24 hr (Effexor XR) clonidine HCl 0.2 mg tablet 0.2 mg PO DAILY 08/07/21 09/27/21 insulin glargine 100 unit/mL (3 25 unit subcut QAM 09/12/21 09/27/21 mL) subcutaneous pen (Lantus Solostar U-100 Insulin) quetiapine 100 mg tablet 1 tab PO BEDTIME 09/12/21 09/27/21 quetiapine 400 mg tablet (Seroquel) 1 tab PO BEDTIME 09/12/21 09/27/21 trazodone 50 mg tablet 2 tab PO BEDTIME 09/12/21 09/27/21 clonazepam 1 mg tablet 1 mg PO TID 12/24/21 Previous Rx's Medication Instructions Recorded flash glucose scanning reader #1 ea 05/31/21 (FreeStyle Clare 14 Day [place]) flash glucose sensor (FreeStyle #6 kits 05/31/21 Clare 14 Day Sensor kit) empagliflozin 25 mg tablet 25 mg PO DAILY #90 tabs 06/04/21 (Jardiance) budesonide-formoterol HFA 160 2 puff inhalation BID #10.2 grams 08/07/21 mcg-4.5 mcg/actuation aerosol inhaler (Symbicort) insulin aspart U-100 100 unit/mL 1 sliding scale dose subcut 08/13/21 (3 mL) subcutaneous pen (Novolog USEASDIRECTD #15 mL FlexPen U-100 Insulin aspart) aspirin 81 mg tablet,delayed 81 mg PO DAILY #30 tabs 09/27/21 release (Adult Low Dose Aspirin) mfhqhbzpjs-wpwztnkrimbop-iathaeke 1 cap PO Q8H PRN pain #20 caps 09/27/21 50 mg-300 mg-40 mg capsule (Fioricet) sulfamethoxazole 800 1 tab PO BID #14 tabs 10/10/21 mg-trimethoprim 160 mg tablet (Bactrim DS) pen needle, diabetic 31 gauge x #50 ea 11/15/2107/02 (BD Ultra-Fine Short Pen Needle) meloxicam 7.5 mg tablet (Mobic) 7.5 mg PO DAILY #90 tabs 11/18/21 atorvastatin 80 mg tablet 80 mg PO DAILY 30 days #30 tabs 01/13/22 gabapentin 100 mg capsule 400 mg PO BID #120 caps 01/21/22 omeprazole 20 mg capsule,delayed 20 mg PO DAILY #90 caps 01/30/22 release <Betzy Tracey CNP - Last Filed: 03/09/22 16:21> Allergies/Adverse Reactions: Allergies Allergy/AdvReac Type Severity Reaction Status Date / Time morphine [MORPHINE] Allergy Intermediate NAUSEA, Verified 12/24/21 09:44 rash oxycodone [From PERCOCET] Allergy Intermediate ITCHY, rash Verified 12/24/21 09:44 penicillin V Allergy Intermediate hives Verified 12/24/21 09:44 simvastatin Allergy Intermediate rash Verified 12/24/21 09:44 hydrocodone [From VICODIN] Allergy Mild RASH Verified 12/24/21 09:44 amoxicillin [Amoxicillin] Allergy Unknown UNKNOWN Verified 12/24/21 09:44 <Betzy Tracey CNP - Last Filed: 03/09/22 16:21> Review of Systems Review of Systems: Constitutional : No Weight loss, No Fever, No Chills, No Fatigue, No Malaise ENT/Mouth : No sore throat, No Rhinorrhea Eyes: No Eye Pain, No Swelling, No Redness Cardiovascular : No Chest Pain, No SOB, No Dyspnea on Exertion, No Orthopnea, No Edema, No Palpitations Respiratory : No Cough, No Sputum, No Wheezing Gastrointestinal : No Nausea, No Vomiting, No Diarrhea, No Constipation, No abdominal Pain, No Hematochezia, No Melena Genitourinary : No Dysuria, No Urinary Frequency, No Hematuria, Musculoskeletal : + joint pain, No Myalgias, + Joint Swelling Skin : No Skin Lesions, No rash Neuro : No Weakness, No Numbness, No Dizziness, No Headache Psych : No Anxiety/Panic, No Depression All other systems reviewed and are negative <VIRI Glass - Last Filed: 03/09/22 19:06> Yes all other systems are reviewed and are negative <VIRI Glass - Last Filed: 03/09/22 19:06> FOR[facility]LY [facility] Past Medical History Attestation statement: The following information was validated with the patient. <VIRI Glass - Last Filed: 03/09/22 19:06> Source: old records reviewed and nursing notes reviewed <VIRI Glass - Last Filed: 03/09/22 19:06> Medical History: Medical History Anxiety and depression Asthma Crohn's disease GERD (gastroesophageal reflux disease) Hypercholesterolemia Hypertension IBS (irritable bowel syndrome) Migraine Obesity (BMI 30-39.9) OCD (obsessive compulsive disorder) Panic disorder PTSD (post-traumatic stress disorder) Seizure disorder Tobacco abuse Type 2 diabetes mellitus with hyperglycemia, with long-term current use of insulin <Betzy Tracey CNP - Last Filed: 03/09/22 16:21> Surgical History: Surgical History H/O arthroscopy H/O bilateral breast reduction surgery History of ankle surgery Previous section <Betzy Tracey CNP - Last Filed: 03/09/22 16:21> Family History Family History: Family History Father CVD (cerebrovascular disease) Diabetes Hypertension Mother Depression Chronic mental illness Maternal Grandmother Myocardial infarction CVD (cerebrovascular disease) Breast cancer Maternal Aunt Liver cancer Family/Other PTSD (post-traumatic stress disorder) Migraines Asthma <Betzy Tracey CNP - Last Filed: 03/09/22 16:21> Social History Social History: Social History Housing: Apartment Alcohol intake: never Patient Tobacco Use Status: Current everyday Tobacco user Tobacco use type: Cigarette Cigarettes Per Day: 2 e-Cigarette/Vaping Use: Never Used Substance Use Type: Marijuana Advance Directives: No Advance Directives Information Provided: No service: No Current occupational status: unemployed Current occupation: left handed Cognitive needs: Yes Hearing needs: No Vision needs: Yes <Betzy Tracey CNP - Last Filed: 03/09/22 16:21> Physical Exam Vital Signs: Vital Signs: Last Vital Signs Temp 98.2 F 03/09/22 16:18 Pulse 98 03/09/22 16:18 Resp 16 03/09/22 16:18 BP 154/84 H 03/09/22 16:18 Pulse Ox 97 03/09/22 16:18 O2 Del Method 03/09/22 16:18 BMI result Body Mass Index 36.7 <Betzy Tracey CNP - Last Filed: 03/09/22 16:21> Vital Signs: Last Vital Signs Temp 98.2 F 03/09/22 16:18 Pulse 98 03/09/22 16:18 Resp 16 03/09/22 16:18 BP 154/84 H 03/09/22 16:18 Pulse Ox 97 03/09/22 16:18 O2 Del Method 03/09/22 16:18 BMI result Body Mass Index 36.7 vss <VIRI Glass - Last Filed: 03/09/22 19:06> Appearance: Alert.? Oriented X3.? No acute distress.? Head: Normocephalic, atraumatic, no step-offs or deformities Eyes: Pupils equal, round and reactive to light.? CVS: Normal heart rate and rhythm.? Pulses normal.? Respiratory: No respiratory distress.? Breath sounds normal.? Abdomen: Soft and nontender.? Skin: Skin warm and dry.? Normal skin color.? Normal skin turgor.? Extremities: No lower extremity edema.? No calf ttp. 5/5 strength to bilateral upper and lower extremities. Full range of motion to ankles pain-free. 2+ dorsalis pedis, posterior tibialis, anterior tibialis pulses equal bilateral. Normal capillary refill to lower extremities. No footdrop. Patient ambulating steady gait normal coordination Back: No midline tenderness, no C-spine tenderness, full range of motion, no CVA tenderness bilaterally Neuro: Oriented X 3.? No motor deficit.? No sensory deficit. CN 2-12 intact <VIRI Glass - Last Filed: 03/09/22 19:06> Course Course Course Narrative: This is an RME: Additional HPI, ROS, PE not included below will be deferred to primary provider. Patient is a 41-year-old female who presents to the emergency department for evaluation of right ankle pain. She reports that she slipped on ice 3-4 months ago and never had any evaluation after as she presumed this was a sprain. However, has had continued pain to the right lateral ankle, but has been much worse over the past 3 days without any new injury. Has been ambulatory and bearing weight. Reports a history of surgical repair to this ankle many years ago. Plan: XR right ankle <Betzy Tracey CNP - Last Filed: 03/09/22 16:21> Reevaluation(s) Reevaluation #1: X-ray unremarkable. Will give Aircast, crutches, advised to follow-up with the orthopedic team. Educated on rice, ibuprofen and Tylenol. Educated patient on diagnosis and treatment plan, answered all question, patient verbalizes understanding. At this time patient will be discharged home, advised to return with new or worsening symptoms. Educated on worrisome signs and symptoms and when to return. At this time I feel comfortable discharge home. <VIRI Glass - Last Filed: 03/09/22 19:06> Time: 18:42 <VIRI Glass - Last Filed: 03/09/22 19:06> Medical Decision Making Medical Decision Making [facility] Narrative: 1841 41-year-old female presents with right ankle pain status post slipping on ice 3-4 months ago, reports continued pain. Physical exam significant Full range of motion to ankles pain-free. 2+ dorsalis pedis, posterior tibialis, anterior tibialis pulses equal bilateral. Normal capillary refill to lower extremities. No footdrop. Patient ambulating steady gait normal coordination Likely sprain or strain likely fracture, dislocation. No signs of neurovascular compromise, acute ligament or tendon tear. No signs of threatened limb Plan at this time x-ray <VIRI Glass - Last Filed: 03/09/22 19:06> Differential Diagnosis Differential Diagnoses: The differential diagnosis associated with the presentation includes <VIRI Glass - Last Filed: 03/09/22 19:06> Likely sprain or strain likely fracture, dislocation. No signs of neurovascular compromise, acute ligament or tendon tear. No signs of threatened limb <VIRI Glass - Last Filed: 03/09/22 19:06> Admission/Observation Consideration of admission/observation: Escalation of care including admission/observation considered <VIRI Glass Last Filed: 03/09/22 19:06> Independent Interpretation I performed an independent interpretation of an: Plain X-Ray (Unremarkable) <VIRI Glass - Last Filed: 03/09/22 19:06> Radiology Impression Discussion of test interpretation with radiology: I have reviewed the radiologist's reading. <VIRI Glass - Last Filed: 03/09/22 19:06> Core Measures AMI core measures followed: Yes <VIRI Glass - Last Filed: 03/09/22 19:06> Measure exclusions: not indicated <VIRI Glass - Last Filed: 03/09/22 19:06> Critical Care Time Critical Care Time Critical Care Time: No <VIRI Glass - Last Filed: 03/09/22 19:06> Discharge Plan Discharge Clinical Impression: Ankle pain, right, Ankle sprain <Betzy CrowellABHISHEK donovan - Last Filed: 03/09/22 16:21> Patient Disposition: Home, Self-Care <Betzy Conklin ABHISHEK Tracey - Last Filed: 03/09/22 16:21> Instructions: R.I.C.E. Treatment (ED) <Betzy Conklin ABHISHEK Tracey - Last Filed: 03/09/22 16:21> Additional Instructions: Take your medications as prescribed. If you were prescribed antibiotics today, it is important that you take your medication to their entirety, do not skip any doses, do not finish them early. Follow-up with your primary care provider this week. Follow-up with orthopedics if pain persists. Return to the emergency department with new or worsening symptoms. Such as fevers, chills, chest pain, shortness of breath, nausea, vomiting, dizziness, headache, vision changes, lethargy In case of emergency call 911 XR/XR ankle RT min 3V IMPRESSION: No significant right ankle abnormality appreciated. You can take ibuprofen every 6 hours, Tylenol every 4 hours as needed for pain or discomfort. <Betzy CrowellABHISHEK donovan - Last Filed: 03/09/22 16:21> Prescriptions: No Action (DME) FreeStyle Clare 14 Day Sensor Kit See Rx Instructions .ROUTE .MEDSUPPLY Qty: 6 3RF Rx Instructions: As directed (DME) FreeStyle Clare 14 Day [place] Misc See Rx Instructions .ROUTE .MEDSUPPLY Qty: 1 0RF Rx Instructions: As directed Jardiance 25 mg tablet 25 mg PO DAILY Qty: 90 3RF insulin aspart U-100 [Novolog FlexPen U-100 Insulin] 100 unit/mL (3 mL) insulin pen 1 sliding scale dose subcut USEASDIRECTD Qty: 15 11RF Rx Instructions: according to sliding scale subcutaneously 3 times a day; sliding scale given 151-230 2 units, 231-280 4 units, 281-330 6 units, 331-380 8 units and > 380 10 units sulfamethoxazole-trimethoprim [Bactrim DS] 800-160 mg tablet 1 tab PO BID Qty: 14 0RF (DME) pen needle, diabetic [BD Ultra-Fine Short Pen Needle] 31 gauge x 5/16 needle See Rx Instructions .ROUTE .MEDSUPPLY Qty: 50 11RF Rx Instructions: As directed daily with insulin pen meloxicam [Mobic] 7.5 mg tablet 7.5 mg PO DAILY Qty: 90 1RF atorvastatin 80 mg tablet 80 mg PO DAILY 30 Days Qty: 30 3RF gabapentin 100 mg capsule 400 mg PO BID Qty: 120 0RF omeprazole 20 mg capsule,delayed release(DR/EC) 20 mg PO DAILY Qty: 90 2RF trazodone 50 mg tablet 2 tab PO BEDTIME quetiapine [Seroquel] 400 mg tablet 1 tab PO BEDTIME quetiapine 100 mg tablet 1 tab PO BEDTIME insulin glargine [Lantus Solostar U-100 Insulin] 100 unit/mL (3 mL) insulin pen 25 unit subcut QAM clonazepam 1 mg tablet 1 mg PO TID Rx Instructions: 2 TABS in the AM and 1 Tab in the PM venlafaxine [Effexor XR] 150 mg capsule,extended release 24hr 300 mg PO DAILY aspirin [Adult Low Dose Aspirin] 81 mg tablet,delayed release (DR/EC) 81 mg PO DAILY Qty: 30 0RF lnqhuooqym-ypbuactundfrs-nmnh [Fioricet] 50-300-40 mg capsule 1 cap PO Q8H PRN (Reason: pain) Qty: 20 0RF clonidine HCl 0.2 mg tablet 0.2 mg PO DAILY budesonide-formoterol [Symbicort] 160-4.5 mcg/actuation HFA aerosol inhaler 2 puff inhalation BID Qty: 10.2 9RF <Betzy Tracey CNP - Last Filed: 03/09/22 16:21> Referrals: [facility] [Provider Group] - 2 weeks Po,Gurdeep Del Angel MD [Primary Care Provider] - 2 days <Betzy Tracey CNP - Last Filed: 03/09/22 16:21> Stand Alone Forms: Work/School Release <Betzy Tracey CNP - Last Filed: 03/09/22 16:21>
[2022-03-09] MEDS: Ketorolac Tromethamine 15 MG/ML VIAL 30 MG IM (19:19)
== END 2022-03-09 19:28 | disposition home or self-care (01) ==
PROVIDERS: Emergency Provider Emergency Medicine; PCP Internal Medicine
DX: M25.571 Pain in right ankle and joints of right foot (principal); S93.401D Sprain of unspecified ligament of right ankle, subsequent encounter; W00.0XXD Fall on same level due to ice and snow, subsequent encounter; E11.9 Type 2 diabetes mellitus without complications; I10 Essential (primary) hypertension; E78.00 Pure hypercholesterolemia, unspecified; F41.8 Other specified anxiety disorders; F17.210 Nicotine dependence, cigarettes, uncomplicated; F12.90 Cannabis use, unspecified, uncomplicated; Z79.4 Long term (current) use of insulin; Z79.899 Other long term (current) drug therapy; Z79.82 Long term (current) use of aspirin; Z79.02 Long term (current) use of antithrombotics/antiplatelets
CPT/HCPCS: 73610; 96372; 99284; J1885

== ENCOUNTER → 2022-06-24 08:50 | Outpatient (BNVA) | payer MEDICARE, MEDICAID, SELFPAY | PROVIDERS: PCP Internal Medicine; Visit Provider Nurse Practitioner Family | DX: G47.33 Obstructive sleep apnea (adult) (pediatric) (principal); G47.10 Hypersomnia, unspecified; Z99.89 Dependence on other enabling machines and devices | CPT/HCPCS: 99212 ==

== ENCOUNTER 2022-09-06 14:01 | Emergency (ER) | payer MEDICARE, MEDICAID, SELFPAY ==
[2022-09-06 14:29] VITALS: BP 140/87; PULSE 103; RESP 18; TEMP 36.4; O2SAT 95; BMI 36.4
--- NOTE | 2022-09-06 14:29 | ED.GENADULT ---
HPI - General Adult General Chief complaint: General Medical Stated complaint: diharea, bleeding, discharge, belly pain Time Seen by Provider: 09/06/22 18:03 Source: patient Mode of arrival: ambulatory Limitations: no limitations History of Present Illness HPI narrative: Patient is a 41-year-old female with history of uncontrolled T2DM with long-term use of insulin, YAHIR, CVA, rectal bleeding, GERD, asthma, hypercholesterolemia, hypertension presenting to the emergency department with lower abdominal pain, diarrhea for 3 days and noted bright red blood on toilet paper when wiping. She denies any dark, tarry stool. She denies any nausea or vomiting. She denies fevers. She also reports increased vaginal discharge, denies concern for STIs. Denies any chest pain or dyspnea. Also complains of intermittent dizziness worse with head movement. Denies any episodes of syncope. MD complaint: abdominal pain, diarrhea Onset (ago): day(s) Location: abdomen Radiation: non-radiation Severity: moderate Quality: aching Pain Consistency: constant Relieving factors: rest Exacerbating factors: movement Associated symptoms: other (diarrhea, BRBPR, vaginal discharge) Treatments prior to arrival: none Related Data Home Medications Medication Instructions Recorded Confirmed venlafaxine 150 mg 300 mg PO DAILY 06/01/20 09/27/21 capsule,extended release 24 hr (Effexor XR) clonidine HCl 0.2 mg tablet 0.2 mg PO DAILY 08/07/21 09/27/21 quetiapine 100 mg tablet 1 tab PO BEDTIME 09/12/21 09/27/21 quetiapine 400 mg tablet (Seroquel) 1 tab PO BEDTIME 09/12/21 09/27/21 trazodone 50 mg tablet 2 tab PO BEDTIME 09/12/21 09/27/21 clonazepam 1 mg tablet 1 mg PO TID 12/24/21 Previous Rx's Medication Instructions Recorded flash glucose scanning reader #1 ea 05/31/21 (FreeStyle Clare 14 Day Anderson) aspirin 81 mg tablet,delayed 81 mg PO DAILY #30 tabs 09/27/21 release (Adult Low Dose Aspirin) evbmhgvvwp-ptqjnfffwojdf-nwezgdrn 1 cap PO Q8H PRN pain #20 caps 09/27/21 50 mg-300 mg-40 mg capsule (Fioricet) pen needle, diabetic 31 gauge x #50 ea 09/29/22 5/16 (BD Ultra-Fine Short Pen Needle) empagliflozin 25 mg tablet 25 mg PO DAILY #90 tabs 04/14/22 (Jardiance) flash glucose sensor (FreeStyle #6 kits 05/20/22 Clare 14 Day Sensor kit) atorvastatin 80 mg tablet 80 mg PO DAILY 30 days #30 tabs 06/19/22 gabapentin 100 mg capsule 400 mg PO BID #120 caps 06/19/22 budesonide-formoterol HFA 160 2 puff inhalation BID #10.2 ea 07/06/22 mcg-4.5 mcg/actuation aerosol inhaler (Symbicort) insulin glargine 100 unit/mL (3 30 unit (0.3 mL) subcut QPM #15 mL 07/19/22 mL) subcutaneous pen (Lantus Solostar U-100 Insulin) insulin aspart U-100 100 unit/mL 1 sliding scale dose subcut 08/19/22 (3 mL) subcutaneous pen (Novolog USEASDIRECTD #15 mL FlexPen U-100 Insulin aspart) meloxicam 7.5 mg tablet 7.5 mg PO DAILY #90 tabs 08/19/22 omeprazole 20 mg capsule,delayed 20 mg PO DAILY #90 caps 08/19/22 release cephalexin 500 mg capsule 500 mg PO BID 7 days #14 caps 09/06/22 docusate sodium 100 mg capsule 100 mg PO DAILY #30 caps 09/06/22 Allergies Allergy/AdvReac Type Severity Reaction Status Date / Time morphine [MORPHINE] Allergy Intermediate NAUSEA, Verified 06/24/22 08:55 rash oxycodone [From PERCOCET] Allergy Intermediate ITCHY, rash Verified 06/24/22 08:55 penicillin V Allergy Intermediate hives Verified 06/24/22 08:55 simvastatin Allergy Intermediate rash Verified 06/24/22 08:55 hydrocodone [From VICODIN] Allergy Mild RASH Verified 06/24/22 08:55 amoxicillin [Amoxicillin] Allergy Unknown UNKNOWN Verified 06/24/22 08:55 Review of Systems Review of Systems: As per HPI. Yes all other systems are reviewed and are negative Constitutional: Constitutional: Reports as per HPI ON LICENSE OF [facility] Past Medical History Medical History Anxiety and depression Asthma Crohn's disease GERD (gastroesophageal reflux disease) Hypercholesterolemia Hypertension IBS (irritable bowel syndrome) Migraine Obesity (BMI 30-39.9) OCD (obsessive compulsive disorder) Panic disorder PTSD (post-traumatic stress disorder) Seizure disorder Tobacco abuse Type 2 diabetes mellitus with hyperglycemia, with long-term current use of insulin Surgical History H/O arthroscopy H/O bilateral breast reduction surgery History of ankle surgery Previous section Family History Family History Father CVD (cerebrovascular disease) Diabetes Hypertension Mother Depression Chronic mental illness Maternal Grandmother Myocardial infarction CVD (cerebrovascular disease) Breast cancer Maternal Aunt Liver cancer Family/Other PTSD (post-traumatic stress disorder) Migraines Asthma Social History Social History Housing: Apartment Alcohol intake: never Patient Tobacco Use Status: Current everyday Tobacco user Tobacco use type: Cigarette Cigarettes Per Day: 2 e-Cigarette/Vaping Use: Never Used Substance Use Type: Marijuana Advance Directives: No Advance Directives Information Provided: No service: No Current occupational status: unemployed Current occupation: left handed Cognitive needs: Yes Hearing needs: No Vision needs: Yes Physical Exam ED Vital Signs: Vital Signs - 24 hr 09/06/22 14:29 09/06/22 17:35 Temperature 97.5 F 97.3 F Pulse Rate 103 H 94 Respiratory Rate 18 18 Blood Pressure 140/87 H 157/86 H Pulse Oximetry 95 98 Oxygen Delivery Method Room Air Room Air BMI result Body Mass Index 36.4 Vital signs have been reviewed and appear to be correct. Blood pressure elevated. Heart rate normal. Respiratory rate normal. Temperature normal. Oxygen saturation normal. Const General: cooperative, healthy appearing and no acute distress Orientation/consciousness: oriented to person, oriented to place, oriented to time and patient oriented x3 Limitations: no limitations HENMT Head: Yes normocephalic and Yes atraumatic Ears: external ears normal General nose exam: Normal external nose present Face and sinus: Yes face symmetric Mouth: oropharynx normal and moist mucous membranes Throat: Yes uvula midline Eyes Pupils: Equal, round and reactive pupils present Neck Neck: Yes normal visual inspection and Yes supple Resp Effort & Inspection: normal respiratory effort and able to speak in complete sentences Auscultation: clear to auscultation bilaterally Cardio Rate: regular rate Rhythm: regular rhythm Heart sounds: S1 normal heart sound present and S2 normal heart sound present GI Other: Rectal exam chaperoned by CHARU Groves. Inspection: Yes normal to inspection and No distended Palpation (GI): Soft to palpation, nontender, no guarding and No Rebound tenderness present Auscultation: normoactive bowel sounds Rectal Exam - Female: External hemorrhoid(s) present and Anal fissure(s) present Other: Pelvic exam chaperoned by CHARU Groves. General: Yes no CVA tenderness External Female Exam: normal external appearance Speculum Exam - Vagina: normal appearance of the vagina, abnormal vaginal discharge white and clear, not erythematous, no lesions, No vaginal bleeding, no masses and no swelling Speculum Exam - Cervix: normal appearance of the cervix, normal palpation, Cervical os closed, Abnormal cervical discharge present white and clear, no lesions, no masses and nontender Bimanual exam- vagina & uterus: normal bimanual exam, normal palpation and No Cervical tenderness present Bimanual Exam- Adnexa, other: normal adnexae and no tenderness OB/external & speculum: No vaginal bleeding Back/Spine/Pelvis Back: no CVA tenderness Skin General skin exam: elasticity normal and turgor normal Neuro General: oriented to person, oriented to place, oriented to time, patient oriented x3, moves all extremities, no focal motor deficits and CN's II-XI intact bilaterally Cranial nerves: Yes Equal, round and reactive pupils present and Yes Nystagmus not present Cognition (Neuro): normal cognition Extrem General: Yes full ROM, Yes no pedal edema and Yes no calf tenderness Psych Mental Status: mental status grossly normal Affect: normal affect Thought process: Normal thought process present Course Course Course Narrative: RME performed by Mirna Zamora PA-C. Patient is a 41 year old assigned female at presenting to the emergency department with diarrhea, vaginal discharge, rectal bleeding, and right sided abdominal pain. Labs ordered. Patient placed back in the waiting room pending room availability and results. Medical Decision Making Medical Decision Making MDM Narrative: Patient is a 41-year-old female with history of uncontrolled T2DM with long-term use of insulin, YAHIR, CVA, rectal bleeding, GERD, asthma, hypercholesterolemia, hypertension presenting to the emergency department with lower abdominal pain, diarrhea for 3 days and noted bright red blood on toilet paper when wiping as well as increased vaginal discharge and intermittent dizziness worse with head movements. On exam patient is awake, A+Ox3, BP elevated, VS otherwise WNL, afebrile, normal neurological exam without focal deficits, no lateral gaze nystagmus, abdomen soft and nontender, no CVA tenderness, external hemorrhoids and fissure noted on rectal exam, clear/white discharge noted on pelvic exam, BV swab sent. Patient refusing STI testing at this time. Patient medicated for dizziness with meclizine. Given reported symptoms and physical exam findings, initial differential includes UTI/pyelonephritis, viral gastroenteritis, STI, bacterial vaginitis. Feel dizziness is likely related to BPPV as patient does not have central features. Unlikely diverticulitis, appendicitis, cholecystitis. Labs notable for leukocytosis which appears consistent with baseline, normal H&H, no evidence of MICHELL, magnesium within normal limits, no evidence of hyperglycemia or DKA. UA positive for 1+ leukocytes, 3-5 rbc's, greater than 50 wbc's, 1+ bacteria, will treat for UTI. Patient states she has a twin who is allergic to amoxicillin so she avoids this medication, states she has taken cephalexin without incident in the past. Do not feel abdominal imaging is indicated at this time and abdomen is soft and nontender. Feel patient is stable for discharge home at this time. Will contact patient with any positive results BV swab. All results discussed with patient on all questions answered. Return precautions discussed at bedside. Patient verbalized understanding of and agreement with plan. Differential Diagnosis Differential Diagnoses: The differential diagnosis associated with the presentation includes This for [facility]. Admission/Observation Consideration of admission/observation: Escalation of care including admission/observation considered Considered on arrival given report of abdominal pain and diarrhea, rectal bleeding Lab Data [facility] Lab Attestation statement: I reviewed the patient's lab results. As per [facility]. 09/06/22 16:26 09/06/22 16:26 Labs: Lab Results 09/06/22 09/06/22 09/06/22 Range/Units 16:26 16:26 16:26 WBC 15.8 H (4.8-10.8) X10*3/uL RBC 4.70 (4.20-5.50) X10*6/uL Hgb 12.4 (12.0-16.0) g/dl Hct 40.5 (37.0-47.0) % MCV 86.2 (80.0-98.0) fL MCH 26.4 L (27.0-33.0) pg MCHC 30.6 L (31.0-35.0) g/dl RDW 16.0 (11.0-16.0) % Plt Count 282 (160-400) X10*3/uL MPV 10.5 (9.4-12.3) fL Immature Gran % (Auto) 0.9 H (0.0-0.4) % Neut % (Auto) 70.9 (45-73) % Lymph % (Auto) 21.2 (20-40) % Bonner % (Auto) 6.0 (2-11) % Eos % (Auto) 0.6 (0-4) % Baso % (Auto) 0.4 (0-2) % Lymph # (Auto) 3.3 (1.2-4.9) X10*3/uL Bonner # (Auto) 1.0 (0.1-1.2) X10*3/uL Eos # (Auto) 0.1 (0.0-0.4) X10*3/uL Baso # (Auto) 0.1 (0.0-0.2) X10*3/uL Abs Immat Gran (auto) 0.14 H (0.00-0.03) X10*3/uL Absolute Neuts (auto) 11.2 H (2.0-8.3) x10*3/uL Absolute Nucleated RBC 0.000 (0.0-0.012) X10*3/uL Nucleated RBC % (auto) 0.0 (0.0-0.2) /100WBC Sodium 138 (135-145) mmol/L Potassium 3.8 (3.3-5.1) mmol/L Chloride 107 (96-108) mmol/L Carbon Dioxide 23 (22-29) mmol/L Anion Gap 12 (12-20) BUN 7 L (9-16) mg/dL Creatinine 0.66 (0.5-1.4) mg/dL Estim Creat Clear Calc 113.7 Estimated GFR > 60 Random Glucose 129 H (60-115) mg/dL Calcium 9.4 D (8.4-10.2) mg/dL Magnesium 1.8 (1.6-2.6) mg/dL Total Bilirubin 0.2 (0.0-1.0) mg/dL AST 9 (5-31) U/L ALT 9 (0-31) U/L Alkaline Phosphatase 91 (39-117) U/L Total Protein 7.8 (6.5-8.0) g/dL Albumin 3.9 (3.5-5.0) g/dL Urine Color Yellow Urine Appearance Clear Urine pH 5.5 (5.0-9.0) Ur Specific [place] >= 1.030 H (1.005-1.025) Urine Protein Negative (Neg-Trace) mg/dL Urine Glucose (UA) >=1000 H (Negative) mg/dL Urine Ketones Negative (Negative) mg/dL Urine Blood Negative (Negative) Urine Nitrite Negative (Negative) Ur Leukocyte Esterase Small (1+) H (Negative) Urine RBC 3-5 H (0-2) /HPF Urine WBC >50 H (0-5) /HPF Ur Squamous Epith Cells 6-10 (0-2) /HPF Urine Bacteria 1+ (None Seen) Hyaline Casts 0-2 (0-2) /LPF External Record Review External record reviewed: Inpatient record, Office record and Outpatient record Prescription Management I considered prescription management with: Antibiotic Chronic Conditions Patient?s care impacted by: Diabetes and Hypertension Discharge Plan Discharge Clinical Impression: Urinary tract infection, External hemorrhoid, Anal fissure Patient Disposition: Home, Self-Care Instructions: Hemorrhoids (DC), Urinary Tract Infection in Women (DC) Additional Instructions: You have been evaluated in the emergency department today for your abdominal symptoms. Your evaluation, including urinalysis, suggests that your symptoms are due to urinary tract infection. Your rectal bleeding is likely related to your external hemorrhoids. Please take your prescribed antibiotics for the full course of medication as directed. Please follow-up with your primary care provider within 2 days. Return to the emergency department if you experience fevers 100.4? F or greater, worsening or uncontrolled pain, vomiting, flank pain, or for any other concerning symptoms. The most effective way to manage hemorrhoids is with a fiber rich diet and stool softeners. A stool softener has been prescribed to you as well which you can use once your diarrhea has resolved. A barrier cream can also help to decrease the irritation to the area as discussed. Prescriptions: New cephalexin 500 mg capsule 500 mg PO BID 7 Days Qty: 14 0RF docusate sodium 100 mg capsule 100 mg PO DAILY Qty: 30 0RF No Action (DME) FreeStyle Clare 14 Day Anderson Misc See Rx Instructions .ROUTE .MEDSUPPLY Qty: 1 0RF Rx Instructions: As directed (DME) pen needle, diabetic [BD Ultra-Fine Short Pen Needle] 31 gauge x 5/16 needle See Rx Instructions .ROUTE .MEDSUPPLY Qty: 50 11RF Rx Instructions: As directed daily with insulin pen Jardiance 25 mg tablet 25 mg PO DAILY Qty: 90 3RF (DME) FreeStyle Clare 14 Day Sensor Kit See Rx Instructions .ROUTE .MEDSUPPLY Qty: 6 3RF Rx Instructions: As directed gabapentin 100 mg capsule 400 mg PO BID Qty: 120 0RF atorvastatin 80 mg tablet 80 mg PO DAILY 30 Days Qty: 30 3RF budesonide-formoterol [Symbicort] 160-4.5 mcg/actuation HFA aerosol inhaler 2 puff inhalation BID Qty: 10.2 9RF insulin glargine [Lantus Solostar U-100 Insulin] 100 unit/mL (3 mL) insulin pen 30 unit subcut QPM Qty: 15 3RF meloxicam 7.5 mg tablet 7.5 mg PO DAILY Qty: 90 1RF omeprazole 20 mg capsule,delayed release(DR/EC) 20 mg PO DAILY Qty: 90 2RF insulin aspart U-100 [Novolog FlexPen U-100 Insulin] 100 unit/mL (3 mL) insulin pen 1 sliding scale dose subcut USEASDIRECTD Qty: 15 11RF Rx Instructions: according to sliding scale subcutaneously 3 times a day; sliding scale given 151-230 2 units, 231-280 4 units, 281-330 6 units, 331-380 8 units and > 380 10 units trazodone 50 mg tablet 2 tab PO BEDTIME quetiapine [Seroquel] 400 mg tablet 1 tab PO BEDTIME quetiapine 100 mg tablet 1 tab PO BEDTIME clonazepam 1 mg tablet 1 mg PO TID Rx Instructions: 2 TABS in the AM and 1 Tab in the PM venlafaxine [Effexor XR] 150 mg capsule,extended release 24hr 300 mg PO DAILY aspirin [Adult Low Dose Aspirin] 81 mg tablet,delayed release (DR/EC) 81 mg PO DAILY Qty: 30 0RF enuogcsxfe-megptfprylont-jibu [Fioricet] 50-300-40 mg capsule 1 cap PO Q8H PRN (Reason: pain) Qty: 20 0RF clonidine HCl 0.2 mg tablet 0.2 mg PO DAILY
--- NOTE | 2022-09-06 16:30 | MHC.EDTECH ---
PATIENT URINE SAMPLE COLLECTED AND BLOOD DRAWN AND SENT TO LAB .
[2022-09-06 16:36] LABS: MANUAL DIFF FLAG NO
[2022-09-06 16:40] LABS: Basophils Absolute Auto 0.1 X10*3/uL (0.0-0.2); Basophils Percent Auto 0.4 % (0-2); Eosinophils Absolute Auto 0.1 X10*3/uL (0.0-0.4); Eosinophils Percent Auto 0.6 % (0-4); Hematocrit 40.5 % (37.0-47.0); Hemoglobin 12.4 g/dl (12.0-16.0); Imm Gran Abs Auto 0.14 X10*3/uL (0.00-0.03); Imm Gran Pct Auto 0.9 % (0.0-0.4); Lymphocytes Absolute Auto 3.3 X10*3/uL (1.2-4.9); Lymphocytes Percent Auto 21.2 % (20-40); Mean Corpuscular HGB Conc 30.6 g/dl (31.0-35.0); Mean Corpuscular Hemoglobin 26.4 pg (27.0-33.0); Mean Corpuscular Volume 86.2 fL (80.0-98.0); Mean Platelet Volume 10.5 fL (9.4-12.3); Neutrophils Absolute Auto 11.2 x10*3/uL (2.0-8.3); Neutrophils Percent Auto 70.9 % (45-73); Platelet Count 282 X10*3/uL (160-400); White Blood Count 15.8 X10*3/uL (4.8-10.8)
[2022-09-06 16:42] LABS: Appearance Urine Clear; Color Urine Yellow; Glucose Urine UA >=1000 mg/dL (Negative); Leukocyte Esterase Urine Small (1+) (Negative); Nitrite Urine Negative (Negative); PH 5.5 (5.0-9.0); Specific Gravity - Urine >= 1.030 (1.005-1.025); UMIC TRIGGER UACC YES; Urine Blood Negative (Negative); Urine Ketones Negative (Negative); Urine Protein Negative (Neg-Trace)
[2022-09-06 16:44] LABS: Bacteria Urine 1+ (None Seen); Hyaline Casts Urine 0-2 /LPF (0-2); UACC Culture Trigger YES; WBC Urine >50 /HPF (0-5)
[2022-09-06 16:56] LABS: Alanine Aminotransferase 9 U/L (0-31); Albumin Level 3.9 g/dL (3.5-5.0); Alkaline Phosphatase 91 U/L (39-117); Anion Gap 12 (12-20); Aspartate Amino Transferase 9 U/L (5-31); Bilirubin Total 0.2 mg/dL (0.0-1.0); Blood Urea Nitrogen 7 mg/dL (9-16); Calcium 9.4 mg/dL (8.4-10.2); Carbon Dioxide 23 mmol/L (22-29); Chloride 107 mmol/L (96-108); Creatinine Clr Calc Pharmacy 113.7; Estimated Glomerular Filt Rate > 60; Glucose Random 129 mg/dL (60-115); Magnesium 1.8 mg/dL (1.6-2.6); Potassium 3.8 mmol/L (3.3-5.1); Sodium 138 mmol/L (135-145); Total Protein 7.8 g/dL (6.5-8.0)
[2022-09-06 17:35] VITALS: BP 157/86; PULSE 94; RESP 18; TEMP 36.3; O2SAT 98
--- NOTE | 2022-09-06 17:38 | PC.NURSE ---
patient a&ox3, vss, pt c/o 10/27 lower abd pain- pt urine was obtained prior to coming into [facility]- pt urine has elevated wbc, pt awaiting provider, will continue to monitor
[2022-09-06] MEDS: Meclizine HCl 25 MG TABLET PO (18:45)
--- NOTE | 2022-09-06 18:45 | PC.NURSE ---
pt medicated per order
[2022-09-07 11:51] LABS: BV Int Neg Control Negative (Negative); BV Int Pos Control Positive (Positive)
== END 2022-09-06 19:23 | disposition home or self-care (01) ==
PROVIDERS: Physician Assistant Medical; Registered Nurse Emergency; Emergency Provider Emergency Medicine; PCP Internal Medicine
DX: N39.0 Urinary tract infection, site not specified (principal); B95.1 Streptococcus, group B, as the cause of diseases classified elsewhere; K64.4 Residual hemorrhoidal skin tags; K60.2 Anal fissure, unspecified; B37.31 Acute candidiasis of vulva and vagina; E11.9 Type 2 diabetes mellitus without complications; I10 Essential (primary) hypertension; E78.00 Pure hypercholesterolemia, unspecified; F17.210 Nicotine dependence, cigarettes, uncomplicated; F12.90 Cannabis use, unspecified, uncomplicated; Z86.73 Personal history of transient ischemic attack (TIA), and cerebral infarction without residual deficits; Z79.4 Long term (current) use of insulin; Z79.82 Long term (current) use of aspirin; Z79.899 Other long term (current) drug therapy
CPT/HCPCS: 36415; 80053; 81001; 83735; 85025; 87086; 87147; 87480; 87510; 87660; 99283

== ENCOUNTER 2022-12-27 10:13 | Outpatient (AMB) | payer MEDICARE, MEDICAID, SELFPAY ==
--- NOTE | 2022-12-27 10:18 | A.OFFVIS_ITS ---
Intake Vital Signs 12/27/22 10:21 Weight 185 lb BP 128/90 H Blood Pressure Location Lt brachial Pulse 101 H Pulse Source Pulse Oximeter Pulse Oximetry (%) 97 Oxygen Delivery Method Room Air Intake Visit Reasons: 6M follow up sleep apnea/Confirmed Intake Note: F/U sleep apnea Doctor Chiropractic Required: No Allergies morphine [MORPHINE] Allergy (Intermediate, Verified 12/27/22 10:19) NAUSEA, rash oxycodone [From PERCOCET] Allergy (Intermediate, Verified 12/27/22 10:19) ITCHY, rash penicillin V Allergy (Intermediate, Verified 12/27/22 10:19) hives simvastatin Allergy (Intermediate, Verified 12/27/22 10:19) rash hydrocodone [From VICODIN] Allergy (Mild, Verified 12/27/22 10:19) RASH amoxicillin [Amoxicillin] Allergy (Unknown, Verified 12/27/22 10:19) UNKNOWN HPI HPI Comments History of Present Illness Details 41 y/o female patient presents for follo w up of YAHIR on CPAP. The CPAP compliance and therapy response (11/27/22-12/26/22) reviewed with the patient. She is on APAP [id number]. The usage days 70% and the average usage hours 6 hrs. The mean pressure is 10, max pressure 16.3 and the residual AHI was 0.9. Pt reports she has gastric issue, and having frequent, excessive burping and having difficulty using CPAP. The air blowing up to her eyes and it wakes up, she keep readjusting the mask. However, she feels more rested when she uses CPAP and daytime sleepiness has improved. [facility] Medical History Anxiety and depression Asthma Crohn's disease GERD (gastroesophageal reflux disease) Hypercholesterolemia Hypertension IBS (irritable bowel syndrome) Migraine Obesity (BMI 30-39.9) OCD (obsessive compulsive disorder) Panic disorder PTSD (post-traumatic stress disorder) Seizure disorder Tobacco abuse Type 2 diabetes mellitus with hyperglycemia, with long-term current use of insulin Surgical History H/O arthroscopy H/O bilateral breast reduction surgery History of ankle surgery Previous section Family History Father CVD (cerebrovascular disease) Diabetes Hypertension Mother Depression Chronic mental illness Maternal Grandmother Myocardial infarction CVD (cerebrovascular disease) Breast cancer Maternal Aunt Liver cancer Family/Other PTSD (post-traumatic stress disorder) Migraines Asthma Social History (Updated 12/27/22 @ 10:20 by Karine Miller CMA) Housing: Apartment Alcohol intake: never Patient Tobacco Use Status: Current everyday Tobacco user Tobacco use type: Cigarette Cigarettes Per Day: 2 e-Cigarette/Vaping Use: Never Used Substance Use Type: Marijuana service: No Current occupational status: unemployed Current occupation: left handed Cognitive needs: Yes Hearing needs: No Vision needs: Yes Review of Systems Const All systems reviewed & are unremarkable except as noted in HPI and below ENT Reports Normal hearing present Neuro Reports Normal hearing present Physical Exam Vital Signs: Last Vital Signs Pulse 101 H 12/27/22 10:21 BP 128/90 H 12/27/22 10:21 Pulse Ox 97 12/27/22 10:21 Oxygen Delivery Method Room Air 12/27/22 10:21 Const General: cooperative Nutritional Appearance: obese Orientation/consciousness: patient oriented x3 HEENT Throat: Yes other (mallampati grade 4) Neck Neck: Yes full ROM and Yes supple Resp Effort & Inspection: normal respiratory effort and able to speak in complete sentences Neuro General: patient oriented x3, gait normal and moves all extremities Cranial nerves: Yes Bilaterally intact EOM present, Yes Normal facial strength present, Yes Midline tongue present, Yes Normal hearing present, Yes Ability to bilaterally rotate head present and Yes Ability to bilaterally elevate shoulders present Cognition (Neuro): normal cognition Gait exam (Neuro): Normal gait present Psych Appearance: grossly normal Mental Status: mental status grossly normal Speech and movement: Normal speech and movement present Affect: normal affect Attitude: cooperative Assessment & Plan Assessment & Plan (1) YAHIR (obstructive sleep apnea): Comment: Severe degree of YAHIR. The total AHI was 41/hr and oxygen valdemar was 75%. Code(s): G47.33 - Obstructive sleep apnea (adult) (pediatric) (2) Hypersomnia: Code(s): G47.10 - Hypersomnia, unspecified Plan Advised patient to try CPAP mask liner to prevent skin irritation and blowing the air to her eyes. Continue to use APAP [id number]. Stressed compliance, use CPAP nightly and more than 4 hours. Wt loss advised. Coding Level of Care Code Est Pt Level 3 (47460) Diagnoses YAHIR (obstructive sleep apnea) G47.33 Hypersomnia G47.10
[2022-12-27 10:21] VITALS: BP 128/90; PULSE 101; O2SAT 97
== END 2022-12-27 10:49 | disposition home or self-care (01) ==
PROVIDERS: Visit Provider Nurse Practitioner Family
DX: G47.33 Obstructive sleep apnea (adult) (pediatric) (principal); G47.10 Hypersomnia, unspecified
CPT/HCPCS: 99213

== ENCOUNTER → 2022-12-27 10:13 | Outpatient (BNVA) | payer MEDICARE, MEDICAID, SELFPAY | PROVIDERS: Visit Provider Nurse Practitioner Family | DX: G47.33 Obstructive sleep apnea (adult) (pediatric) (principal); G47.10 Hypersomnia, unspecified | CPT/HCPCS: 99212 ==

== ENCOUNTER 2023-01-07 09:52 | Outpatient (AMB) | payer MEDICARE, MEDICAID, SELFPAY ==
--- NOTE | 2023-01-07 09:56 | MHC.PC.OV ---
Vital Signs 01/07/23 09:58 01/07/23 10:25 Height 5 ft 1 in Weight 181 lb 4 oz BMI 34.2 BP 120/76 Blood Pressure Location Lt brachial Position Sitting Pulse 118 H 108 H Pulse Source Pulse Oximeter Palpation Pulse Oximetry (%) 97 Oxygen Delivery Method Room Air Intake Visit Reasons: rash on breast Intake Note: Patient is here today for possible infection under both breast and right big toe. Requesting for referral for Endocrine. Structural Iron Erector Required: No Web Mobile Designer: Not Required per policy Accompanied by: Self / Same As Patient Allergies morphine [MORPHINE] Allergy (Intermediate, Verified 01/07/23 10:16) NAUSEA, rash oxycodone [From PERCOCET] Allergy (Intermediate, Verified 01/07/23 10:16) ITCHY, rash penicillin V Allergy (Intermediate, Verified 01/07/23 10:16) hives simvastatin Allergy (Intermediate, Verified 01/07/23 10:16) rash hydrocodone [From VICODIN] Allergy (Mild, Verified 01/07/23 10:16) RASH amoxicillin [Amoxicillin] Allergy (Unknown, Verified 01/07/23 10:16) UNKNOWN Medication List - Last Reconciled 01/07/23 by TRAVIS Booth aspirin (Adult Low Dose Aspirin) 81 mg PO DAILY atorvastatin 80 mg PO DAILY 30 days junwhcuasb-ilptnmfsiwvhz-rpor 50-325-40 mg 1 tab PO DAILY PRN clonazepam 1 mg PO TID clonidine HCl 0.2 mg PO DAILY docusate sodium 100 mg PO DAILY empagliflozin (Jardiance) 25 mg PO DAILY flash glucose scanning reader (FreeStyle Clare 14 Day [place]) As directed flash glucose sensor (FreeStyle Clare 14 Day Sensor kit) As directed gabapentin 400 mg (4 x 100 mg) PO BID insulin aspart U-100 (Novolog FlexPen U-100 Insulin aspart) 1 sliding scale dose subcut USEASDIRECTD insulin glargine (Lantus Solostar U-100 Insulin) 30 units (0.3 mL) subcut QPM meloxicam 7.5 mg PO DAILY omeprazole 20 mg PO DAILY pen needle, diabetic (BD Ultra-Fine Short Pen Needle) As directed daily with insulin pen quetiapine (Seroquel) 1 tab PO BEDTIME quetiapine 1 tab PO BEDTIME trazodone 2 tabs PO BEDTIME venlafaxine ER (Effexor XR) 300 mg PO DAILY Tobacco use date assessed: 01/07/23 Dental Screening Dental Screen Date: 01/07/23 Did you have a dental visit in the last 12 months?: No Did you have a dental problem in the last 6 months where you did not have access to dental care?: No Was dental information given to patient?: Patient has dentist HPI rash on breast HPI Details Patient is a 42-year-old female who presents today with multiple complaints. Patient of Dr. Villarreal. Medical history significant for migraine, diabetes type 2, hypertension, hypercholesterolemia, obesity among others. Patient reports bilateral breast open areas for the past 5 years on and off. Reports she removed pus from her left breast couple days ago. Also reports right great toe redness, swelling, numbness. Reports blood sugar this morning 272, reports compliant with diabetes treatment. No shortness of breath or chest pain. [facility] Medical History IBS (irritable bowel syndrome) GERD (gastroesophageal reflux disease) Crohn's disease Seizure disorder Tobacco abuse Asthma Hypercholesterolemia Hypertension Obesity (BMI 30-39.9) Anxiety and depression Type 2 diabetes mellitus with hyperglycemia, with long-term current use of insulin Migraine Panic disorder PTSD (post-traumatic stress disorder) OCD (obsessive compulsive disorder) Surgical History H/O bilateral breast reduction surgery H/O arthroscopy History of ankle surgery Previous section Family History Father CVD (cerebrovascular disease) Diabetes Hypertension Mother Depression Chronic mental illness Maternal Grandmother Myocardial infarction CVD (cerebrovascular disease) Breast cancer Maternal Aunt Liver cancer Family/Other PTSD (post-traumatic stress disorder) Migraines Asthma Other Mental health disorder Housing: Apartment Alcohol intake: never Patient Tobacco Use Status: Current everyday Tobacco user Tobacco use type: Cigarette Cigarettes Per Day: 2 e-Cigarette/Vaping Use: Never Used Second Hand Smoke Exposure: Yes Substance Use Type: Marijuana service: No Current occupational status: unemployed Current occupation: left handed Cognitive needs: No Hearing needs: No Vision needs: Yes (glasses) Questionnaire Thrive Questionnaire Date Thrive assessed: 03/29/22 LANE-[address] - 7 assessed: 03/29/22 Source: Developed by Drs. Huang Ellis, Marixa Oneal, Omero Bland and colleagues, with an educational blair from [employer]. Review of Systems Const Denies body aches, Denies chills, Denies fever(s) and Denies headache(s) ENT Denies dizziness, Denies otalgia, Denies headache(s), Denies nasal discharge, Denies sinus pain and Denies sore throat Card Denies chest pain, Denies edema, Denies lightheadedness and Denies dyspnea Resp Denies cough, Denies dyspnea and Denies wheezing GI Denies abdominal pain Musc Denies myalgias Skin/Breast Reports as per HPI Neuro Denies dizziness and Denies headache(s) Aller/Immun Denies wheezing Physical exam (Primary Care) Vital Signs: Last Vital Signs Pulse 108 H 01/07/23 10:25 BP 120/76 01/07/23 09:58 Pulse Ox 97 01/07/23 09:58 Oxygen Delivery Method Room Air 01/07/23 09:58 BMI result Body Mass Index 34.2 Tobacco/Smoking Status: Tobacco use Status Tobacco use date assessed 01/07/23 01/07/23 09:58 Patient Tobacco Use Status Current everyday Tobacco 01/07/23 09:58 Tobacco use type Cigarette 01/07/23 09:58 e-Cigarette/Vaping Use Never Used 01/07/23 09:58 Thrive Assessment: Date of Thrive Assessment Date Thrive assessed 03/29/22 01/07/23 09:58 Const General: cooperative and no acute distress Orientation/consciousness: patient oriented x3 HENMT Head: Yes normocephalic and Yes atraumatic Throat: Yes posterior oropharynx normal Eyes General: appearance normal, both eyes and all related structures Neck Neck: Yes normal visual inspection and Yes full ROM Resp Effort & Inspection: normal respiratory effort and able to speak in complete sentences Auscultation: clear to auscultation bilaterally, no crackles, no rales, no rhonchi and no wheezes Cardio Rate: regular rate Rhythm: regular rhythm Heart sounds: S1 normal heart sound present and S2 normal heart sound present GI Auscultation: normal bowel sounds Skin Other: Right great toe red, swollen, ingrown toenail suspected Full body images: 1. Left breast open area about 2cm diameter with pink woundbed and surrounding erythema, no discharge 2. Right breast lateral aspect open area about 3cm diameter with pink wound bed and surrounding erythema, no discharge Neuro General: patient oriented x3 Gait exam (Neuro): Normal gait present Extrem General: Yes full ROM and No edema Results AMB Hemoglobin A1c AMB Hemoglobin A1c 9.6 % Last Edit by NASRIN Paz on 01/07/23 10:14 Results Reviewed Results Reviewed: Laboratory Last Values Hgb A1c (Clinic) 9.6 % (4.0-6.0) H 01/07/23 09:55 Assessment and Plan Assessment & Plan (1) Ingrown toenail of right foot: Code(s): L60.0 - Ingrowing nail Plan: Will treat with doxycycline Podiatry referral Encouraged Epson salt water soaks (2) Wound of skin: Code(s): T14.8XXA - Other injury of unspecified body region, initial encounter Plan: Cleanse area with water and apply mupirocin topical b.i.d. for 7 days Start doxycycline Wound care referral Signs and symptoms reviewed when to notify provider or go to the emergency department (3) Uncontrolled diabetes mellitus with hyperglycemia, with long-term current use of insulin: Code(s): E11.65 - Type 2 diabetes mellitus with hyperglycemia; Z79.4 - intermediate (current) use of insulin Plan: A1c 9.6 today, goal less than 7 Increase Lantus to 34 units at bedtime Continue sliding scale and Jardiance Endocrinology referral Reinforced low-carbohydrate diet Orders: Orders AMB Hemoglobin A1c 01/07/23 E11.65 - Type 2 diabetes mellitus with hyperglycemia, Z79.4 - watermelon inspector (current) use of insulin Referrals Wound Care Referral T14.8XXA - Other injury of unspecified body region, initial encounter Podiatry Referral L60.0 - Ingrowing nail Endocrinology Referral E11.65 - Type 2 diabetes mellitus with hyperglycemia, Z79.4 - intermediate (current) use of insulin Medications: New mupirocin 2% 1 appl topical BID 7 days 22 grams 0RF T14.8XXA - Other injury of unspecified body region, initial encounter doxycycline hyclate 100 mg PO BID 10 days 20 tabs 0RF T14.8XXA - Other injury of unspecified body region, initial encounter Changed From insulin glargine 30 units (0.3 mL) subcut QPM 15 mL 3RF E11.65 - Type 2 diabetes mellitus with hyperglycemia, Z79.4 - watermelon inspector (current) use of insulin To insulin glargine (Lantus Solostar U-100 Insulin) 34 units (0.34 mL) subcut QPM 15 mL 3RF E11.65 - Type 2 diabetes mellitus with hyperglycemia, Z79.4 - intermediate (current) use of insulin Refilled flash glucose sensor (FreeStyle Clare 14 Day Sensor kit) As directed 6 kits 3RF E11.65 - Type 2 diabetes mellitus with hyperglycemia gabapentin 400 mg (4 x 100 mg) PO BID 120 caps 12RF S80.01XA - Contusion of right knee, initial encounter Coding Level of Care Code Est Pt Level 4 (98616) Diagnoses Ingrown toenail of right foot L60.0 Wound of skin T14.8XXA Uncontrolled diabetes mellitus with hyperglycemia, with long-term current use of insulin E11.65; Z79.4
[2023-01-07 09:58] VITALS: BP 120/76; PULSE 118; O2SAT 97; BMI 34.2
[2023-01-07 10:25] VITALS: PULSE 108
== END 2023-01-07 10:37 | disposition home or self-care (01) ==
PROVIDERS: PCP Internal Medicine; Visit Provider Nurse Practitioner Family
DX: E11.65 Type 2 diabetes mellitus with hyperglycemia (principal); Z79.4 Long term (current) use of insulin
CPT/HCPCS: 83036; 99214

== ENCOUNTER 2023-01-21 12:16 | Emergency (ER) | payer MEDICARE, MEDICAID, SELFPAY | END 2023-01-21 13:00 | disposition left against medical advice (07) | PROVIDERS: Emergency Provider Emergency Medicine; PCP Internal Medicine | DX: R41.82 Altered mental status, unspecified (principal) ==

== ENCOUNTER 2023-02-11 | Outpatient (RCR) | payer MEDICARE, MEDICAID, SELFPAY | END 2023-09-12 12:30 | disposition home or self-care (01) | LOC: HO.WCC | PROVIDERS: PCP Internal Medicine; Visit Provider Physician Assistant | DX: E11.622 Type 2 diabetes mellitus with other skin ulcer (principal); L98.492 Non-pressure chronic ulcer of skin of other sites with fat layer exposed; I10 Essential (primary) hypertension; F17.210 Nicotine dependence, cigarettes, uncomplicated; Z79.4 Long term (current) use of insulin; E11.40 Type 2 diabetes mellitus with diabetic neuropathy, unspecified; L73.2 Hidradenitis suppurativa | CPT/HCPCS: 11042; 99212; 99213 ==

== ENCOUNTER 2023-04-15 09:14 | Outpatient (AMB) | payer MEDICARE, MEDICAID, SELFPAY ==
--- NOTE | 2023-04-15 09:20 | MHC.PC.OV ---
Vital Signs 04/15/23 09:22 Height 5 ft 1 in Weight 189 lb 0.6 oz BMI 35.7 BP 138/92 H Blood Pressure Location Lt brachial Position Sitting Pulse 103 H Pulse Source Pulse Oximeter Pulse Oximetry (%) 97 Oxygen Delivery Method Room Air Intake Visit Reasons: DM Hat Designer Required: No Allergies morphine [MORPHINE] Allergy (Intermediate, Verified 04/15/23 09:21) NAUSEA, rash oxycodone [From PERCOCET] Allergy (Intermediate, Verified 04/15/23 09:21) ITCHY, rash penicillin V Allergy (Intermediate, Verified 04/15/23 09:21) hives simvastatin Allergy (Intermediate, Verified 04/15/23 09:21) rash hydrocodone [From VICODIN] Allergy (Mild, Verified 04/15/23 09:21) RASH amoxicillin [Amoxicillin] Allergy (Unknown, Verified 04/15/23 09:21) UNKNOWN Medication List - Last Reconciled 04/15/23 by Gurdeep Villarreal MD aspirin (Adult Low Dose Aspirin) 81 mg PO DAILY atorvastatin 80 mg PO DAILY 30 days xcibxipydx-jvioygkbrosms-eaxp 50-325-40 mg 1 tab PO DAILY PRN clonazepam 1 mg PO TID clonidine HCl 0.2 mg PO DAILY docusate sodium 100 mg PO DAILY empagliflozin (Jardiance) 25 mg PO DAILY flash glucose scanning reader ([employer] Clare 14 Day [place]) As directed flash glucose sensor ([employer] Clare 14 Day Sensor kit) As directed gabapentin 400 mg (4 x 100 mg) PO BID insulin aspart U-100 (Novolog FlexPen U-100 Insulin aspart) 1 sliding scale dose subcut USEASDIRECTD insulin glargine (Lantus Solostar U-100 Insulin) 34 units (0.34 mL) subcut QPM lorazepam (Ativan) 0.5 mg PO .QD PRN meloxicam 7.5 mg PO DAILY mupirocin 2% 1 appl topical BID 7 days omeprazole 20 mg PO DAILY pen needle, diabetic (BD Ultra-Fine Short Pen Needle) As directed daily with insulin pen quetiapine (Seroquel) 1 tab PO BEDTIME quetiapine 1 tab PO BEDTIME trazodone 2 tabs PO BEDTIME venlafaxine ER (Effexor XR) 300 mg PO DAILY Tobacco use date assessed: 04/15/23 Dental Screening Dental Screen Date: 04/15/23 Did you have a dental visit in the last 12 months?: Yes Did you have a dental problem in the last 6 months where you did not have access to dental care?: No Was dental information given to patient?: Patient has dentist HPI DM HPI Details 42-year-old obese female smoker with uncontrolled diabetes mellitus hypertension hypercholesterolemia asthma GERD history of CVA coming in for follow-up. Have not seen the patient for more than a couple of years. Review of the notes has been follow-up with wound care last seen in March 2023 for an abdominal ulcer, left breast ulcer. ER visit in January for confusion but patient left against medical advice. Patient also saw the nurse practitioner in December for the breast rash and an ingrown toenail on the right foot was given doxycycline at that time. In December also why seen by the Neurology for obstructive sleep apnea severe AHI 41 has been advised to use CPAP. Patient was seen by another neurology for chronic migraine in November and has had Botox shots. ER visit also UTI. PAtient is seeing [facility] - changed LAntus to 50 u QD PAtient is going for dental procedure and asking for anxiety med prn [facility] Medical History (Updated 04/15/23 @ 10:12 by Gurdeep Villarreal MD) Sleep apnea Hypersomnia Right sided weakness [place] Bloating Difficulty swallowing Screening for hypothyroidism Contusion of right knee Burn Wound cellulitis Neck pain IBS (irritable bowel syndrome) GERD (gastroesophageal reflux disease) Crohn's disease Seizure disorder Tobacco abuse Asthma Hypercholesterolemia Hypertension Obesity (BMI 30-39.9) Anxiety and depression Type 2 diabetes mellitus with hyperglycemia, with long-term current use of insulin Migraine Panic disorder PTSD (post-traumatic stress disorder) OCD (obsessive compulsive disorder) Surgical History H/O bilateral breast reduction surgery H/O arthroscopy History of ankle surgery Previous section Family History Father CVD (cerebrovascular disease) Diabetes Hypertension Mother Depression Chronic mental illness Maternal Grandmother Myocardial infarction CVD (cerebrovascular disease) Breast cancer Maternal Aunt Liver cancer Family/Other PTSD (post-traumatic stress disorder) Migraines Asthma Other Mental health disorder Social History Housing: Apartment Alcohol intake: never Patient Tobacco Use Status: Current everyday Tobacco user Tobacco use type: Cigarette Cigarettes Per Day: 2 e-Cigarette/Vaping Use: Never Used Second Hand Smoke Exposure: Yes Substance Use Type: Marijuana service: No Current occupational status: unemployed Current occupation: left handed Cognitive needs: No Hearing needs: No Vision needs: Yes (glasses) Questionnaire PHQ-9 Over the last 2 weeks, how often have you been bothered by any of the following problems? 1. Little interest or pleasure in doing things: not at all 2. Feeling down, depressed, or hopeless: not at all 3. Trouble falling or staying asleep, or sleeping too much: not at all 4. Feeling tired or having little energy: not at all 5. Poor appetite or overeating: not at all 6. Feeling bad about yourself - or that you are a failure or have let yourself or your family down: not at all 7. Trouble concentrating on things, such as reading the newspaper or watching television: not at all 8. Moving or speaking so slowly that other people could have noticed. Or the opposite - being so fidgety or restless that you have been moving around a lot more than usual: not at all 9. Thoughts that you would be better off or of hurting yourself in some way: not at all Total score: 0 Depression Screening Interpretation: Negative Depression Screening Done: Yes Source: Developed by Drs. Huang Ellis, Marixa Oneal, Omero Bland and colleagues, with an educational blair from [employer]. Thrive Questionnaire Date Thrive assessed: 04/15/23 AUDIT C Alcohol Use Questionnaire (AUDIT-C) 1. How often do you have a drink containing alcohol?: Never Total Score: 0 Score Reviewed/Action Taken: No LANE-[address] L[address] - 7 assessed: 04/15/23 Source: Developed by Drs. Huang Ellis, Marixa Oneal, Omero Bland and colleagues, with an educational blair from [employer]. Physical exam (Primary Care) Vital Signs: Last Vital Signs Pulse 103 H 04/15/23 09:22 BP 138/92 H 04/15/23 09:22 Pulse Ox 97 04/15/23 09:22 Oxygen Delivery Method Room Air 04/15/23 09:22 BMI result Body Mass Index 35.7 Tobacco/Smoking Status: Tobacco use Status Tobacco use date assessed 04/15/23 04/15/23 09:30 Patient Tobacco Use Status Current everyday Tobacco 04/15/23 09:20 Tobacco use type Cigarette 04/15/23 09:20 e-Cigarette/Vaping Use Never Used 04/15/23 09:20 PHQ-9: PHQ-9 Score PHQ-9: Total score 0 04/15/23 09:34 Depression Screening Interpretation: Negative Thrive Assessment: Date of Thrive Assessment Date Thrive assessed 04/15/23 04/15/23 09:30 Const General: alert; No acute distress Eyes Conjunctivae: conjunctivae normal Resp Auscultation: clear to auscultation bilaterally Cardio Rate: regular rate Rhythm: regular rhythm GI Inspection: Yes normal to inspection Extrem General: Yes normal to inspection and No edema Results AMB Hemoglobin A1c AMB Hemoglobin A1c 11.2 % Last Edit by NASRIN Rosas on 04/15/23 09:34 Results Reviewed Results Reviewed: Laboratory Last Values Hgb A1c (Clinic) 11.2 % (4.0-6.0) H 04/15/23 09:20 Assessment and Plan Assessment & Plan (1) Type 2 diabetes mellitus with hyperglycemia, with long-term current use of insulin: Comment: Dr. Anderson Code(s): E11.65 - Type 2 diabetes mellitus with hyperglycemia; Z79.4 - [facility] (current) use of insulin Plan: Decrease the amount of carbohydrate intake, pasta, bread, rice and potatoes are all sugar and that is aside from all the sweet stuff, remember that fruits are good but they are Sweet also. Hemoglobin A1c goal of less than 6.5. Patient is noncompliant. Presently on Jardiance 25 mg once a day NovoLog sliding scale Lantus at 34 units patient is up-to-date with eye exam. Had a long discussion with the patient regarding diet nutrition getting diabetes under control getting cholesterol under control getting blood pressure under control (2) Obesity (BMI 30-39.9): Code(s): E66.9 - Obesity, unspecified Plan: Diet and exercise patient was advised to continue with eating better. Trying to stop smoking and was gaining weight but discussed on limiting diet 2 proteins only (3) Hypertension: Code(s): I10 - Essential (primary) hypertension Qualifiers: Hypertension type: essential hypertension Qualified Code(s): I10 - Essential (primary) hypertension Plan: advised to monitor BP and record. (4) Hypercholesterolemia: Code(s): E78.00 - Pure hypercholesterolemia, unspecified Plan: Avoid fried foods, chicken skin, eggs, butter margarine, pastries and meat. Be it pork or beef they have a lot of cholesterol LDL goal of less than 100 and triglyceride of less than 150 presently on atorvastatin 80 mg once a day (5) Asthma: Code(s): J45.909 - Unspecified asthma, uncomplicated Qualifiers: Asthma severity: mild Asthma persistence: intermittent Asthma complication type: uncomplicated Qualified Code(s): J45.20 - Mild intermittent asthma, uncomplicated Plan: Patient is strongly advised to stop smoking! Patient states trying to stop smoking (6) Tobacco abuse: Code(s): Z72.0 - Tobacco use Plan: Patient is advised strongly to stop smoking! Patient is trying to stop smoking (7) GERD (gastroesophageal reflux disease): Code(s): K21.9 - Gastro-esophageal reflux disease without esophagitis Plan: Stop smoking! (8) Migraine: Code(s): G43.909 - Migraine, unspecified, not intractable, without status migrainosus Plan: Stop smoking! Patient follows up with Neurology and has had Botox shots concern about sleep apnea and may be causing/aggravating migraine (9) CVA (cerebral vascular accident): Comment: August 2021 right-sided weakness Code(s): I63.9 - Cerebral infarction, unspecified Plan: Continue with aspirin, Control the cholesterol, weight, blood pressure, diabetes! (10) YAHIR (obstructive sleep apnea): Comment: Severe degree of YAHIR. The total AHI was 41/hr and oxygen valdemar was 75%. Code(s): G47.33 - Obstructive sleep apnea (adult) (pediatric) Plan: Discussed about importance of having CPAP treatment. Patient follows up with Neurology. Patient admits to using 6 days a week of the CPAP more than 4 hours a night and benefits from this. (11) Wound of skin: Code(s): T14.8XXA - Other injury of unspecified body region, initial encounter Plan: Patient follows up would care and stressed importance of getting blood sugars under control and weight loss for healing. Orders: Orders Free T4 (Free Thyroxine) Today E11.65 - Type 2 diabetes mellitus with hyperglycemia, Z79.4 - [facility] container terminal (current) use of insulin Microalbumin, Random (w Creat) Today E11.65 - Type 2 diabetes mellitus with hyperglycemia, Z79.4 - [facility] (current) use of insulin Vitamin D 25-OH Total Today E11.65 - Type 2 diabetes mellitus with hyperglycemia, Z79.4 - [facility] (current) use of insulin AMB Hemoglobin A1c Today E11.65 - Type 2 diabetes mellitus with hyperglycemia, Z79.4 - [facility] (current) use of insulin Complete Blood Count Auto Diff Today E11.65 - Type 2 diabetes mellitus with hyperglycemia, Z79.4 - [facility] (current) use of insulin Comprehensive Met. Panel Today E11.65 - Type 2 diabetes mellitus with hyperglycemia, Z79.4 - [facility] (current) use of insulin Lipid Panel Today E11.65 - Type 2 diabetes mellitus with hyperglycemia, E78.00 - Pure hypercholesterolemia, unspecified, Z79.4 - [facility] (current) use of insulin Thyroid Stimulating Hormone Today E11.65 - Type 2 diabetes mellitus with hyperglycemia, Z79.4 - [facility] (current) use of insulin Vitamin B12 and Folate Today E11.65 - Type 2 diabetes mellitus with hyperglycemia, Z79.4 - [facility] (current) use of insulin Creatinine Urine Today E11.65 - Type 2 diabetes mellitus with hyperglycemia, Z79.4 - [facility] (current) use of insulin Medications: New lorazepam (Ativan) 0.5 mg PO .QD PRN 7 tabs 0RF anxiety Refilled gabapentin 400 mg (4 x 100 mg) PO BID 120 caps 12RF S80.01XA - Contusion of right knee, initial encounter Coding Level of Care Code Est Pt Level 4 (66625) Diagnoses Type 2 diabetes mellitus with hyperglycemia, with long-term current use of insulin E11.65; Z79.4 Obesity (BMI 30-39.9) E66.9 Essential hypertension I10 Hypertension type: essential hypertension Hypercholesterolemia E78.00 Mild intermittent asthma without complication J45.20 Asthma severity: mild Asthma persistence: intermittent Asthma complication type: uncomplicated Tobacco abuse Z72.0 GERD (gastroesophageal reflux disease) K21.9 Migraine G43.909 CVA (cerebral vascular accident) I63.9 YAHIR (obstructive sleep apnea) G47.33 Wound of skin T14.8XXA Additional Codes PHQ-9 - 49870 - PHQ-9 Billing: ([id number])
[2023-04-15 09:22] VITALS: BP 138/92; PULSE 103; O2SAT 97; BMI 35.7
== END 2023-04-15 10:13 | disposition home or self-care (01) ==
PROVIDERS: PCP Internal Medicine; Visit Provider Internal Medicine
DX: E11.65 Type 2 diabetes mellitus with hyperglycemia (principal); Z79.4 Long term (current) use of insulin; E66.9 Obesity, unspecified; Z68.35 Body mass index [BMI] 35.0-35.9, adult; Z86.73 Personal history of transient ischemic attack (TIA), and cerebral infarction without residual deficits; I10 Essential (primary) hypertension; E78.00 Pure hypercholesterolemia, unspecified; J45.20 Mild intermittent asthma, uncomplicated; Z72.0 Tobacco use; K21.9 Gastro-esophageal reflux disease without esophagitis; G43.909 Migraine, unspecified, not intractable, without status migrainosus; G47.33 Obstructive sleep apnea (adult) (pediatric)
CPT/HCPCS: 83036; 99214

== ENCOUNTER 2023-04-16 08:18 | Outpatient (REF) | payer MEDICARE, SELFPAY ==
[2023-04-16 08:38] LABS: MANUAL DIFF FLAG NO
[2023-04-16 09:14] LABS: Basophils Absolute Auto 0.1 X10*3/uL (0.0-0.2); Basophils Percent Auto 0.5 % (0-2); Eosinophils Absolute Auto 0.2 X10*3/uL (0.0-0.4); Eosinophils Percent Auto 1.9 % (0-4); Hematocrit 41.2 % (37.0-47.0); Hemoglobin 12.7 g/dl (12.0-16.0); Imm Gran Abs Auto 0.12 X10*3/uL (0.00-0.03); Lymphocytes Absolute Auto 3.7 X10*3/uL (1.2-4.9); Lymphocytes Percent Auto 30.1 % (20-40); Mean Corpuscular HGB Conc 30.8 g/dl (31.0-35.0); Mean Corpuscular Hemoglobin 25.7 pg (27.0-33.0); Mean Corpuscular Volume 83.2 fL (80.0-98.0); Mean Platelet Volume 10.7 fL (9.4-12.3); Monocytes Absolute Auto 0.8 X10*3/uL (0.1-1.2); Monocytes Percent Auto 6.7 % (2-11); Neutrophils Absolute Auto 7.4 x10*3/uL (2.0-8.3); Neutrophils Percent Auto 59.8 % (45-73); Platelet Count 276 X10*3/uL (160-400); Red Blood Count 4.95 X10*6/uL (4.20-5.50); Red Cell Distribution Width 17.3 % (11.0-16.0); White Blood Count 12.3 X10*3/uL (4.8-10.8)
[2023-04-16 09:51] LABS: Creatinine Urine 50.27 mg/dL; Microalbum/Creatinine Ratio Ur 9.9 ug/mg cr (<30)
[2023-04-16 09:57] LABS: Alanine Aminotransferase 11 U/L (0-31); Alkaline Phosphatase 76 U/L (39-117); Anion Gap 11 (12-20); Aspartate Amino Transferase 15 U/L (5-31); Bilirubin Total 0.2 mg/dL (0.0-1.0); Blood Urea Nitrogen 11 mg/dL (9-16); Calcium 9.4 mg/dL (8.4-10.2); Carbon Dioxide 27 mmol/L (22-29); Chloride 104 mmol/L (96-108); Cholesterol 240 mg/dL (<200); Estimated Glomerular Filt Rate > 60; Glucose Random 201 mg/dL (60-115); HDL Cholesterol 47 mg/dL (>40); LDL Cholesterol Calculated 132 mg/dL (<100); Potassium 4.4 mmol/L (3.3-5.1); Sodium 138 mmol/L (135-145); Total Protein 8.1 g/dL (6.5-8.0); Triglycerides 307 mg/dL (<150)
[2023-04-16 10:17] LABS: Free T4 (Free Thyroxine) 0.79 ng/dL (0.71-1.85); Thyroid Stimulating Hormone 0.87 uIU/mL (0.32-4.0); Vitamin D 25-OH Total 12.4 ng/mL (>30)
[2023-04-16 14:48] LABS: Folate 6.8 ng/mL (> or = 4.0); Vitamin B12 199 pg/mL (200-900)
== END 2023-04-16 08:19 | disposition home or self-care (01) ==
LOC: HO.LAB 08:18
PROVIDERS: PCP Internal Medicine; Visit Provider Internal Medicine
DX: E11.65 Type 2 diabetes mellitus with hyperglycemia (principal); E78.00 Pure hypercholesterolemia, unspecified; Z79.4 Long term (current) use of insulin
CPT/HCPCS: 36415; 80053; 80061; 82043; 82306; 82570; 82607; 82746; 84439; 84443; 85025

== ENCOUNTER 2023-06-23 15:35 | Emergency (ER) | payer MEDICARE, SELFPAY ==
--- OUTSIDE RECORDS SUMMARY | 2023-06-23 15:56 | XMS_ITS | Continuity of Care Document ---
Author Organization [facility] ter Address [address] [place] [id number]- Care Team Providers Care Commercial Service Technician Name Role Phone Rita Perez MD Primary Care Physician Encounter [facility] Date(s): 01/30/23 - 01/30/[address] [address]- Discharge Disposition: A-D/C Home Attending Physician: Brendan Russell MD Admitting Physician: Brendan Russell MD Referring Physician: Brendan Russell MD Allergies, Adverse Reactions, Alerts Substance Reaction Severity Status amoxicillin red, and swell Mild Active Cats sneezing red and puffy Mild Active Pollen sneezing, stuffy nose Mild Active Immunizations Given and Recorded Vaccine Date Status Refusal Reason tetanus/diphtheria/pertussis, acel(Tdap) 1 08/31/18 Given pneumococcal 23-valent vaccine 2 03/23/15 Given influenza virus vaccine, inactivated 03/23/15 Give n Tet/Diphth/Acel, Pertussis (oldterm) 06/01/07 Give n Tetanus Toxoid Vaccine (oldterm) 02/17/97 Given 1Result Comment: Patient tolerated well. 2Early/Late Reason: Med Not Available Medications atorvastatin 20 mg oral tablet 1 tablet = 20 mg, By Mouth, Daily, # 30 tablet, 0 Refills, Maintenance, 01/28/23 13:07:00 EST, Tablet, Partial fill upon patient request if the prescription is for a schedule II opioid drug. Start Date: 01/28/23 Status: Ordered cloNIDine 0.1 mg oral tablet See Instructions, TAKE 2 TABLETS BY MOUTH ONCE DAILY AT BEDTIME. MAY ALSO TAKE 1 TABLET BY MOUTH TWICE DAILY NEEDED FOR ANXIETY, # 120 tablet, Refills 2, Tot. Refills 2, Maintenance, 01/08/21 15:01:00 EST, Instructions Replace Required Details, Rou... Start Date: 01/08/21 Status: Ordered Diflucan 150 mg oral tablet 1 tablet = 150 mg, By Mouth, Once, Repeat dose after 72 hours if still having symptoms., # 1 tablet, 1 Refills, Soft Stop, 08/09/20 16:18:00 EDT, [facility], Partial fill upon patient request if the prescription is for a schedule II opio... Start Date: 08/09/20 Status: Ordered doxepin 10 mg oral capsule 1 capsule = 10 mg, By Mouth, Daily at bedtime, 0 Refills, Maintenance, 01/28/23 13:08:00 EST, Partial fill upon patient request if the prescription is for a schedule II opioid drug. Start Date: 01/28/23 Status: Ordered Freestyle Lancets See Instructions, # 200 each, Refills 0, Tot. Refills 0, Maintenance, use as directed for Type 2 Diabetes Mellitus, 07/14/20 10:52:00 EDT, Supply, 157, cm, 07/14/20 10:39:00 EDT, Height, 119, kg, 01/21/19 4:36:00 EST, Dry Weight Start Date: 07/14/20 Stop Date: 08/13/20 Status: Ordered Freestyle Lite Test Strips See Instructions, # 200 each, Refills 0, Tot. Refills 0, Maintenance, use as directed for Type 2 Diabetes Mellitus, 07/14/20 10:52:00 EDT, Supply, 157, cm, 07/14/20 10:39:00 EDT, Height, 119, kg, 01/21/19 4:36:00 EST, Dry Weight Start Date: 07/14/20 Stop Date: 08/13/20 Status: Ordered gabapentin 300 mg oral capsule 300 mg, 1, capsule, By Mouth, Daily, Refills 0, Maintenance, 01/28/23 13:08:00 EST, Partial fill upon patient request if the prescription is for a schedule II opioid drug. Start Date: 01/28/23 Status: Ordered LORazepam 1 mg oral capsule, extended release 1 capsule = 1 mg, By Mouth, Daily in AM, 0 Refills, Maintenance, 01/28/23 13:09:00 EST, ER Capsule,Partial fill upon patient request if the prescription is for a schedule II opioid drug. Start Date: 01/28/23 Status: Ordered losartan 25 mg oral tablet 25 mg, 1, tablet, By Mouth, Daily, # 90 tablet, Refills 0, Maintenance, 01/28/23 13:07:00 EST, Partial fill upon patient request if the prescription is for a schedule II opioid drug. Start Date: 01/28/23 Status: Ordered melatonin 5 mg oral tablet 1 tablet = 5 mg, By Mouth, Daily at bedtime, PRN for insomnia, # 60 tablet, 0 Refills, Maintenance,01/28/23 13:07:00 EST, Tablet, Partial fill upon patient request if the prescription is for a schedule II opioid drug. Start Date: 01/28/23 Status: Ordered omeprazole 40 mg oral enteric coated capsule See Instructions, TAKE ONE CAPSULE BY MOUTH EVERY DAY, # 90 capsule, 3 Refills, Maintenance, [facility], 157, cm, 07/14/20 10:39:00 EDT, Height, 119, kg, 01/21/19 4:36:00 EST, Dry Weight Start Date: 09/07/20 Status: Ordered Trintellix 20 mg oral tablet 1 tablet = 20 mg, By Mouth, Daily, # 30 tablet, 0 Refills, Maintenance, 01/28/23 13:09:00 EST, Tablet, Partial fill upon patient request if the prescription is for a schedule II opioid drug. Start Date: 01/28/23 Status: Ordered Trulicity Pen 1.5 mg/0.5 mL subcutaneous solution = 3 mg, Subcutaneous Injection, Every week, friday, 0 Refills, Maintenance, 06/16/22 13:34:00 EDT, Solution, Partial fill upon patient request if the prescription is for a schedule II opioid drug. Start Date: 06/16/22 Status: Ordered Problem List Condition Confirmation Course Effective Dates Status Health St atus Informant Adult ADHD Confirmed Active Anxiety 1 Confirmed 1994 Active Cervical dysplasia mild Confirmed 06/01/07 Active wound disruption Confirmed Active Depression Confirmed 09/18/06 Active Chronic GERD 2 Confirmed 1994 Active History of trauma - MINIMIZE PROVIDERS AT DELIVERY Confirmed Active Chronic hypertension Confirmed Active Kidney stones 3 Confirmed 2001 Active Migraine 4 Confirmed 1996 Active Obesity Confirmed Active PCOD - Polycystic ovarian disease Confirmed 4/14/08 Active 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 Takes as needed. Was taking Wellbutrin, klonipin, stopped when got . 2Used to take Prilosec, taking TUMS now 3Has been hospitalized, with medication and with lithotripsy 4Was taking Imitrex, not since 5As a result of attack at work, was hospitalized for one month and in rehab for one month, home rehab for 3 weeks. 6Diagnosed from [facility], checks blood sugars at home. Doesn't take prescribed Metformin. States doesn't think she really needs it . Results Radiology Reports * Exam Date Time Procedure Performing Provider Status 01/30/23 3:39 PM C-Arm < 1 Hour Crispin Leach; Emily (Ve rified) Notes: (C-Arm < 1 Hour) Reason For Exam: Left Cysto Laser/Stent RESULT: C-Arm < 1 Hour Urethrocystography Retrograde, C-Arm < 1 Hour INDICATION: Reason: Left Cysto Laser Stent COMPARISONS: None TECHNIQUE: Fluoroscopy support was provided. There was no radiologist in attendance. FLUOROSCOPY TIME: 18.3 seconds EXPOSURE: 2.2757 Gycm2 (Dose Area Product) TECHNOLOGIST TIME: 40 minutes FINDINGS: Intraoperative images of documenting retrograde urethrocystography and placement of a well-positioned nephroureteral stent. IMPRESSION: See above. WSN: [id number] Ordering Physician: Brendan Russell Dictated By: Hollis Johnson MD Dictated Date/Time: 01/30/23 5:28 pm Reviewed By: Hollis Johnson MD Signed By: Hollis Johnson MD Signed Date/Time: 01/30/23 5:28 pm Transcribed By: ADITAY Transcribed Date/Time: 01/30/23 5:28 pm * Exam Date Time Procedure Performing Provider Status 01/30/23 3:39 PM Urethrocystography Retrograde Crispin Leach; Emily (Verified) Notes: (Urethrocystography Retrograde) Reason For Exam: Left Cysto Laser/Stent RESULT: Urethrocystography Retrograde Urethrocystography Retrograde, C-Arm < 1 Hour INDICATION: Reason: Left Cysto Laser Stent COMPARISONS: None TECHNIQUE: Fluoroscopy support was provided. There was no radiologist in attendance. FLUOROSCOPY TIME: 18.3 seconds EXPOSURE: 2.2757 Gycm2 (Dose Area Product) TECHNOLOGIST TIME: 40 minutes FINDINGS: Intraoperative images of documenting retrograde urethrocystography and placement of a well-positioned nephroureteral stent. IMPRESSION: See above. WSN: [id number] Ordering Physician: Brendan Russell Dictated By: Hollis Johnson MD Dictated Date/Time: 01/30/23 5:28 pm Reviewed By: Hollis Johnson MD Signed By: Hollis Johnson MD Signed Date/Time: 01/30/23 5:28 pm Transcribed By: ADITYA Transcribed Date/Time: 01/30/23 5:28 pm Vital Signs Most recent to oldest [Reference Range]: 1 2 3 Height 157.48 cm (01/30/23 2:01 PM) 157.48 cm (01/28/23 1:30 PM) Weight 114.6 kg (01/30/23 2:01 PM) 111.36 kg (01/28/23 1:30 PM) Oxygen Saturation [94-100 %] 97 % (01/30/23 5:15 PM) 96 % (01/30/23 5:00 PM) 96 % (01/30/23 4:45 PM) Pulse Rate [55-90 bpm] 83 bpm (01/30/23 2:01 PM) Body Mass Index [18.5-24.99 kg/m2] 46.21 kg/m2 *>HHI* (01/30/23 2:01 PM) 44.9 kg/m2 *>HHI* (01/28/23 1:30 PM) Blood Pressure [90-138/55-84 mm Hg] 112/67mm Hg (01/30/23 4:45 PM) 170/92mm Hg *H* (01/30/23 4:30 PM) 181/93mm Hg *H* (01/30/23 4:15 PM) Respiratory Rate [16-30 br/min] 11 br/min *L* (01/30/23 5:15 PM) 15 br/min *L* (01/30/23 5:00 PM) 15 br/min *L* (01/30/23 4:45 PM) Temperature [96.8-100.4 DegF] 98.3 DegF (01/30/23 3:45 PM) 98.5 DegF (01/30/23 2:01 PM) Liters per Minute 4 L/min (01/30/23 3:45 PM) Mode of Delivery (Oxygen) Room air (01/30/23 5:15 PM) Room air (01/30/23 5:00 PM) Room air (01/30/23 4:45 PM) Blood pressure sites Arm, left (01/30/23 2:01 PM) Temperature Route Temporal (01/30/23 3:45 PM) Temporal (01/30/23 2:01 PM) Dry Weight 114.6 kg (01/30/23 2:01 PM) 111.36 kg (01/28/23 1:30 PM) Weight Obtained Via Patient/family state d (01/28/23 1:30 PM) Dry Weight Obtained Via Patient/family s tated (01/28/23 1:30 PM) Social History Social History Type Response Smoking Status Former smoker, quit more than 30 days ago entered on: 11/02/18 Sex History and physical note * Event Display: History and Physical Hospital Authored Date: [id number] Note * Navi Leonard RN: PERFORM Event Display: Discharge/Transfer Note Hospital Authored Date: [id number] Nursing Discharge Note Entered On: 01/30/2023 17:55 EST Performed On: 01/30/2023 17:54 EST by Navi Leonard RN Nursing Discharge Note 2 Discharge Time : 01/30/2023 17:54 EST Discharge Level of Care at Discharge : Home/Retirement/Foster Care Patient Left Unit Via : Wheelchair Patient Accompanied Off Unit with : Responsible adult DC Instructions Provided & Signed by Pt : Yes Patient Understands D/C Instructions : Yes Patient Instructions Discharge Signed : Yes Did Pt have Specialty Bed or Wound Vac : No Navi Leonard RN - 01/30/2023 17:54 EST * Navi Leonard RN: PERFORM Event Display: Patient Education/Instruction Authored Date: [id number] Inpatient Adult Discharge Instructions [address] [id number] Name: NAVI ENCISO : 1980 Visit: 01/30/2023 12:38:00 Current Date: 01/30/2023 17:35 Account: [id number] Inpatient Adult Discharge Instructions We would like to thank you for allowing us to assist you with your healthcare needs. The following includes patient education materials and information regarding your injury/illness. Our entire staffstrives to provide an excellent experience for our patients and their families. PLEASE ENSURE YOU FOLLOW-UP PER THE INSTRUCTIONS BELOW! ?? YOUR OPINION IS IMPORTANT TO US! Please complete the survey you may receive by mail or email. Your feedback will be used to make improvements to the healthcare experiences of our patients and their families. Surveys are administered by [employer]. ?? If further treatment with your primary care physician or another doctor is recommended, it is important for you to keep the appointment. Call your primary care physician or return to the Emergency Department immediately if your condition worsens, fails to improve, or new symptoms develop. If you need to find a doctor, you can call [facility] for a referral at [phone] or toll free at [phone] or log in to [email or web address].. ?? [facility], in keeping with [facility] guidance, no longer requires face masks for staff, patientsor visitors in most situations. Similiar to time spent indoors at other locations, there is the chance that you were exposed to repiratory viruses during your time with us (such as flu or COVID-19). If you develop symptoms concerning for a viral respiratory infection, please seek testing (and treatment if indicated) from your medical provider or home test kit. ?? You can view and manage your care through the patient portal or by using a health care alyssa of your choosing. [employer] is a website that allows you to securely view your medical information including your hospital discharge summary, office visit summaries, medications and follow-up visits. You can also request appointments, renew medications, and request access to your medical information using a health care alyssa of your choosing, or just ask a question. You can enroll at [email or web address] or register during your next office visit. You have been discharged from [facility], Patient Care Unit: [facility]. If you have any questions regarding these instructions after you leave, please call us and we will be happy to assist you. [facility] Your Care Team Attending Physician Yvonne BERRIOS, Brendan Hayward Discharging Providers Yvonne BERRIOS, Brendan Hayward Reason for Admission CALCULUS OF URETER URETEROSCOPY DS CS Tests Performed Below is a partial list of the tests performed during your hospitalization. You may have had other tests and procedures not included in this list. Please discuss all test results with your provider. XR C-Arm < 1 Hour XR Urethrocystography Retrograde Primary Care Provider Rita Perez MD Advance Directive Health Care Proxy on File No Discharge Vitals Temperature: 98.3 DegF Height: 157.48 cm Pulse Rate: 83 bpm Weight: 114.6 kg Respiratory Rate:??11 br/min??Low Body Mass Index:??46.21 kg/m2??Critical Systolic Blood Pressure: 112 mm Hg Body surface area: 2.24 Diastolic Blood Pressure: 67 mm Hg ?? Oxygen Saturation: 97 % ?? Studies Pending All tests and labs ordered during this hospital stay have been completed unless listed below. Please discuss all pending results with your provider listed above in these instructions. ?? No incomplete studies found What to do next Instructions From Your Doctor Discharge Orders Instructions from your Care Team Follow all verbal and written instructions given by Dr. Russell ?? Drink lots of water/fluids-?? Good Hydration Prescriptions sent to [facility]: Tamsulosin, Ibuprofen, Oxycodone ?? Follow up as scheduled for stent removal in office. ?? Ibuprofen can be taken after 9:15PM Oxycodone can be taken next after??8:45PM You Need to Schedule the Following Appointments Follow Up with??Brendan Russell Where: [address] [facility] [place] [address]- Business (1) Follow Up with??Rita Perez When:??In 0 days Where: [address] [place] [address]- Business (1) Discharge Medications NAVI ENCISO :1980 Visit Date:01/30/2023 Medications: Please continue your medications until treatment is completed or stopped by your provider. Medications not listed below should be discontinued. Discuss any questions related to medications with your provider. What How Much When Instructions Next Dose Unchanged Atorvastatin (atorvastatin 20 mg oral tablet) 1 tab(s) Oral Daily Unchanged Clonidine (cloNIDine 0.1 mg oral tablet) See instructions TAKE 2 TABLETS BY MOUTH ONCE DAILY AT BEDTIME. MAY ALSO TAKE 1 TABLET BY MOUTH TWICE DAILY NEEDED FOR ANXIETY ?? Unchanged Doxepin (doxepin 10 mg oral capsule) 1 capsule Oral Daily at Bedtime Unchanged dulaglutide (Trulicity Pen 1.5 mg/ 0.5 mL subcutaneous solution) 3 Milligram Subcutaneous Injection Every week friday ?? Unchanged Durable Medical Equipment (Freestyle Lancets) See instructions Duration: 30 Days use as directed for Type 2 Diabetes Mellitus ?? Unchanged Durable Medical Equipment (Freestyle Lite Test Strips) See instructions Duration: 30 Days use as directed for Type 2 Diabetes Mellitus ?? Unchanged Fluconazole (Diflucan 150 mg oral tablet) 1 tab(s) Oral Once Repeat dose after 72 hours if still having symptoms. ?? Unchanged Gabapentin (gabapentin 300 mg oral capsule) 1 capsule Oral Daily Unchanged Lorazepam (LORazepam 1 mg oral capsule, extended release) 1 capsule Oral Daily in the morning Unchanged Losartan (losartan 25 mg oral tablet) 1 tab(s) Oral Daily Unchanged Melatonin (melatonin 5 mg oral tablet) 1 tab(s) Oral Daily at Bedtime as needed for for insomnia Unchanged Omeprazole (omeprazole 40 mg oral enteric coated capsule) See instructions TAKE ONE CAPSULE BY MOUTH EVERY DAY ?? Unchanged vortioxetine (Trintellix 20 mg oral tablet) 1 tab(s) Oral Daily Test Results Below is a partial list of the most recent Laboratory test results done prior to this discharge. You may have had other tests and procedures not included in this list. Please discuss all test resultswith your provider. Allergies (NKA means No Known Allergies) Cats??(sneezing, red and puffy) Pollen??(sneezing, stuffy nose) amoxicillin??(red, and swell) Problems Active Problems??(16) Adult ADHD?? Anxiety?? Cervical dysplasia mild?? wound disruption?? Chronic GERD?? Chronic hypertension?? Conversion disorder?? Depression?? Diabetes mellitus, type II?? History of trauma - MINIMIZE PROVIDERS AT DELIVERY?? Kidney stones?? Migraine?? Obesity?? PCOD - Polycystic ovarian disease?? Severe obesity?? Severe preeclampsia?? Education Materials Below is the list of Educational Leaflet Providered with your Discharge Instructions. Surgery Medical Daystay Surgical Overnight Discharge Instructions?? Surgery Medical Daystay Surgical Overnight Discharge Instructions?NSAID Analgesic Schedule?? Valuables and Belongings I fully understand and agree that [facility] accepts no responsibility for all my personal property including clothing, toilet articles, radios, jewelry, dentures, hearing aids, rings, money, or any other property that is in my possession or is brought to me after admission. I understand certain valuables may be placed in a hospital safe for a short period of time. I understand that the hospital is not liable for loss or damage due to accident, fire, or other natural occurrence while said property is in the safe. I accept full responsibility for any personal property that I keep with me, and will not hold the hospital responsible in case of loss or disappearance. I acknowledge that i have been encouraged to send valuables and belongings home. ?? Date for Pt to Sign Valuables/Belongings: 01/30/23 14:01:00 ?? Valuables & Belongings ?? Clothes Electronic devices Jewelry Monetary Items Personal devices Miscellaneous Medications (Valuables) Valuables at Bedside Jacket, Pants, Shirt, Shoes, Undergarments Cell phone Earrings ?? Glasses ? Valuables Sent Home ? Valuables Sent to Security ? Other Discharge Information ? Pulmonary Rehab Status?? Pulmonary Rehab Discharge Status?? Respiratory Rate:??11 br/min??Low ? Common Emergency Awareness Tips IS IT A STROKE? Act FAST and Check for these signs: FACE Does the face look uneven? ARM Does one arm drift down? SPEECH Does their speech sound strange? TIME Call at any sign of stroke ?? Heart Attack Signs Chest discomfort: Most heart attacks involve discomfort in the center of the chest and lasts more than a few minutes, or goes away and comes back. It can feel like uncomfortable pressure, squeezing, fullness or pain. Discomfort in upper body: Symptoms can include pain or discomfort in one or both arms, back, neck, jaw or stomach. Shortness of breath: With or without discomfort. Other signs: Breaking out in a cold sweat, nausea, or lightheaded. Remember, MINUTES DO MATTER. If you experience any of these heart attack warning signs, call to get immediate medical attention! ?? Smoking can increase your chances of developing chronic health problems and can cause harmful effects to other family members in your house. If you smoke, you are strongly encouraged to quit. Please call [facility] [employer] [facility] at [phone] or [phone] ([phone]) or log in to [email or web address] for referrals to smoking cessation programs. ?? 926 Suicide & Crisis Lifeline is available 09/09 if you or someone you know needs to find a reason to keep living. By calling 836 you'll be connected to a skilled, trained counselor at a crisis center in your area. INPATIENT DISCHARGE INSTRUCTIONS SIGNATURE PAGE NAVI ENCISO Location:[facility] Registration Date and Time:01/30/2023 12:38 EST Primary Care Physician: Chris BERRIOS, Rita Jean, Attending Physician: Yvonne BERRIOS, Brendan Hayward, I NAVI ENCISO, have received the above patient education materials/instructions and have verbalized understanding. If ambulance or transport services are being used I further acknowledge being given a choice of service. ?? If you need to contact me, please call me at this number: . Patient/Infantry Senior Sergeant Name: Patient/Infantry Senior Sergeant Signature: Relationship to Patient: Witness Name/Signature: Date: * Navi Leonard RN: PERFORM Event Display: Patient Education/Instruction Authored Date: [id number] Inpatient Adult Discharge Instructions [address] [address] Name: NAVI ENCISO : 1980 Visit: 01/30/2023 12:38:00 Current Date: 01/30/2023 17:32 Account: [id number] Inpatient Adult Discharge Instructions We would like to thank you for allowing us to assist you with your healthcare needs. The following includes patient education materials and information regarding your injury/illness. Our entire staffstrives to provide an excellent experience for our patients and their families. PLEASE ENSURE YOU FOLLOW-UP PER THE INSTRUCTIONS BELOW! ?? YOUR OPINION IS IMPORTANT TO US! Please complete the survey you may receive by mail or email. Your feedback will be used to make improvements to the healthcare experiences of our patients and their families. Surveys are administered by [employer] ?? If further treatment with your primary care physician or another doctor is recommended, it is important for you to keep the appointment. Call your primary care physician or return to the Emergency Department immediately if your condition worsens, fails to improve, or new symptoms develop. If you need to find a doctor, you can call [facility] for a referral at [phone] or toll free at [phone]) or log in to [email or web address].. ?? [facility], in keeping with [facility] guidance, no longer requires face masks for staff, patientsor visitors in most situations. Similiar to time spent indoors at other locations, there is the chance that you were exposed to repiratory viruses during your time with us (such as flu or COVID-19). If you develop symptoms concerning for a viral respiratory infection, please seek testing (and treatment if indicated) from your medical provider or home test kit. ?? You can view and manage your care through the patient portal or by using a health care alyssa of your choosing. [employer] is a website that allows you to securely view your medical information including your hospital discharge summary, office visit summaries, medications and follow-up visits. You can also request appointments, renew medications, and request access to your medical information using a health care alyssa of your choosing, or just ask a question. You can enroll at [email or web address] or register during your next office visit. You have been discharged from [facility], Patient Care Unit: [facility]. If you have any questions regarding these instructions after you leave, please call us and we will be happy to assist you. [facility] Your Care Team Attending Physician Brendan Russell MD Discharging Providers Brendan Russell MD Reason for Admission CALCULUS OF URETER URETEROSCOPY DS CS Tests Performed Below is a partial list of the tests performed during your hospitalization. You may have had other tests and procedures not included in this list. Please discuss all test results with your provider. XR C-Arm < 1 Hour XR Urethrocystography Retrograde Primary Care Provider Rita Perez MD Advance Directive Health Care Proxy on File No Discharge Vitals Temperature: 98.3 DegF Height: 157.48 cm Pulse Rate: 83 bpm Weight: 114.6 kg Respiratory Rate:??11 br/min??Low Body Mass Index:??46.21 kg/m2??Critical Systolic Blood Pressure: 112 mm Hg Body surface area: 2.24 Diastolic Blood Pressure: 67 mm Hg ?? Oxygen Saturation: 97 % ?? Studies Pending All tests and labs ordered during this hospital stay have been completed unless listed below. Please discuss all pending results with your provider listed above in these instructions. ?? No incomplete studies found What to do next Instructions From Your Doctor Discharge Orders Instructions from your Care Team Follow all verbal and written instructions given by Dr. Russell ?? Drink lots of water/fluids-?? Good Hydration Prescriptions sent to [facility]: Tamsulosin, Ibuprofen, Oxycodone ?? Follow up as scheduled for stent removal in office. You Need to Schedule the Following Appointments Follow Up with??Brendan Russell Where: [address] [facility] [place] [address]- Business (1) Follow Up with??Rita Perez When:??In 0 days Where: [address] [place] [address]- Business (1) Discharge Medications NAVI ENCISO :1980 Visit Date:01/30/2023 Medications: Please continue your medications until treatment is completed or stopped by your provider. Medications not listed below should be discontinued. Discuss any questions related to medications with your provider. What How Much When Instructions Next Dose Unchanged Atorvastatin (atorvastatin 20 mg oral tablet) 1 tab(s) Oral Daily Unchanged Clonidine (cloNIDine 0.1 mg oral tablet) See instructions TAKE 2 TABLETS BY MOUTH ONCE DAILY AT BEDTIME. MAY ALSO TAKE 1 TABLET BY MOUTH TWICE DAILY NEEDED FOR ANXIETY ?? Unchanged Doxepin (doxepin 10 mg oral capsule) 1 capsule Oral Daily at Bedtime Unchanged dulaglutide (Trulicity Pen 1.5 mg/ 0.5 mL subcutaneous solution) 3 Milligram Subcutaneous Injection Every week friday ?? Unchanged Durable Medical Equipment (Freestyle Lancets) See instructions Duration: 30 Days use as directed for Type 2 Diabetes Mellitus ?? Unchanged Durable Medical Equipment (Freestyle Lite Test Strips) See instructions Duration: 30 Days use as directed for Type 2 Diabetes Mellitus ?? Unchanged Fluconazole (Diflucan 150 mg oral tablet) 1 tab(s) Oral Once Repeat dose after 72 hours if still having symptoms. ?? Unchanged Gabapentin (gabapentin 300 mg oral capsule) 1 capsule Oral Daily Unchanged Lorazepam (LORazepam 1 mg oral capsule, extended release) 1 capsule Oral Daily in the morning Unchanged Losartan (losartan 25 mg oral tablet) 1 tab(s) Oral Daily Unchanged Melatonin (melatonin 5 mg oral tablet) 1 tab(s) Oral Daily at Bedtime as needed for for insomnia Unchanged Omeprazole (omeprazole 40 mg oral enteric coated capsule) See instructions TAKE ONE CAPSULE BY MOUTH EVERY DAY ?? Unchanged vortioxetine (Trintellix 20 mg oral tablet) 1 tab(s) Oral Daily Test Results Below is a partial list of the most recent Laboratory test results done prior to this discharge. You may have had other tests and procedures not included in this list. Please discuss all test resultswith your provider. Allergies (NKA means No Known Allergies) Cats??(sneezing, red and puffy) Pollen??(sneezing, stuffy nose) amoxicillin??(red, and swell) Problems Active Problems??(16) Adult ADHD?? Anxiety?? Cervical dysplasia mild?? wound disruption?? Chronic GERD?? Chronic hypertension?? Conversion disorder?? Depression?? Diabetes mellitus, type II?? History of trauma - MINIMIZE PROVIDERS AT DELIVERY?? Kidney stones?? Migraine?? Obesity?? PCOD - Polycystic ovarian disease?? Severe obesity?? Severe preeclampsia?? Education Materials Below is the list of Educational Leaflet Providered with your Discharge Instructions. Surgery Medical Daystay Surgical Overnight Discharge Instructions?? Surgery Medical Daystay Surgical Overnight Discharge Instructions?NSAID Analgesic Schedule?? Valuables and Belongings I fully understand and agree that [facility] accepts no responsibility for all my personal property including clothing, toilet articles, radios, jewelry, dentures, hearing aids, rings, money, or any other property that is in my possession or is brought to me after admission. I understand certain valuables may be placed in a hospital safe for a short period of time. I understand that the hospital is not liable for loss or damage due to accident, fire, or other natural occurrence while said property is in the safe. I accept full responsibility for any personal property that I keep with me, and will not hold the hospital responsible in case of loss or disappearance. I acknowledge that i have been encouraged to send valuables and belongings home. ?? Date for Pt to Sign Valuables/Belongings: 01/30/23 14:01:00 ?? Valuables & Belongings ?? Clothes Electronic devices Jewelry Monetary Items Personal devices Miscellaneous Medications (Valuables) Valuables at Bedside Jacket, Pants, Shirt, Shoes, Undergarments Cell phone Earrings ?? Glasses ? Valuables Sent Home ? Valuables Sent to Security ? Other Discharge Information ? Pulmonary Rehab Status?? Pulmonary Rehab Discharge Status?? Respiratory Rate:??11 br/min??Low ? Common Emergency Awareness Tips IS IT A STROKE? Act FAST and Check for these signs: FACE Does the face look uneven? ARM Does one arm drift down? SPEECH Does their speech sound strange? TIME Call at any sign of stroke ?? Heart Attack Signs Chest discomfort: Most heart attacks involve discomfort in the center of the chest and lasts more than a few minutes, or goes away and comes back. It can feel like uncomfortable pressure, squeezing, fullness or pain. Discomfort in upper body: Symptoms can include pain or discomfort in one or both arms, back, neck, jaw or stomach. Shortness of breath: With or without discomfort. Other signs: Breaking out in a cold sweat, nausea, or lightheaded. Remember, MINUTES DO MATTER. If you experience any of these heart attack warning signs, call to get immediate medical attention! ?? Smoking can increase your chances of developing chronic health problems and can cause harmful effects to other family members in your house. If you smoke, you are strongly encouraged to quit. Please call [facility] [employer] Link at [phone] or [phone] ([phone]) or log in to [email or web address] for referrals to smoking cessation programs. ?? 314 Suicide & Crisis Lifeline is available 09/09 if you or someone you know needs to find a reason to keep living. By calling 695 you'll be connected to a skilled, trained counselor at a crisis center in your area. INPATIENT DISCHARGE INSTRUCTIONS SIGNATURE PAGE NAVI ENCISO Location:[facility] Registration Date and Time:01/30/2023 12:38 EST Primary Care Physician: Rita Perez MD, Attending Physician: Yvonne BERRIOS, Brendan Haywrad, I CHADNathanielNAVI, have received the above patient education materials/instructions and have verbalized understanding. If ambulance or transport services are being used I further acknowledge being given a choice of service. ?? If you need to contact me, please call me at this number: . Patient/Infantry Senior Sergeant Name: Patient/Infantry Senior Sergeant Signature: Relationship to Patient: Witness Name/Signature: Date: * Navi Leonard RN: PERFORM, SIGN, VERIFY Event Display: Patient Education Handout Authored Date: [id number] * Navi Leonard RN: PERFORM Event Display: Patient Education Leaflets Authored Date: [id number] Surgery Medical Daystay Surgical Overnight Discharge Instructions ?? 295 Medical Daystay/Surgical Overnight Discharge Instructions ? Since your coordination and judgment may be altered by medication and/or anesthesia, a responsible adult must drive you home from the hospital. ? If you have received medication for pain or sedation while under our care, you should not drive, operate machinery, drink alcohol, or sign any legal documents for 24 hours.?? You should have someone with you at home tonight. ? Remain at home the day of discharge.?? You may be up and about unless otherwise instructed by your physician. ? You may resume your daily prescription medication schedule.?? Any depressant medication should be avoided for 24 hours unless otherwise instructed by your surgeon or anesthesiologist. ? Call your physician for a follow-up appointment.? If you experience unusual or severe pain not relied by your pain medication, excessive bleedingor drainage, persistent nausea and vomiting, excessive swelling or redness, foul odor from incisionsite or fever over 100.6F, you need to call your physician. ? A follow-up phone call by a nurse will be made the day after your procedure.?? If you have stayed with us over night, you will not be receiving a follow-up phone call. ? Nausea and vomiting are a common side effect of prescription pain medication.?? We recommend that pills are not taken on an empty stomach.?? While taking any prescription pain medication you should not drive or drink alcohol. ? * Horacio BOX, Navi: PERFORM Event Display: Patient Education Leaflets Authored Date: [id number] Surgery Medical Daystay Surgical Overnight Discharge Instructions ?? 295 Medical Daystay/Surgical Overnight Discharge Instructions ? Since your coordination and judgment may be altered by medication and/or anesthesia, a responsible adult must drive you home from the hospital. ? If you have received medication for pain or sedation while under our care, you should not drive, operate machinery, drink alcohol, or sign any legal documents for 24 hours.?? You should have someone with you at home tonight. ? Remain at home the day of discharge.?? You may be up and about unless otherwise instructed by your physician. ? You may resume your daily prescription medication schedule.?? Any depressant medication should be avoided for 24 hours unless otherwise instructed by your surgeon or anesthesiologist. ? Call your physician for a follow-up appointment.? If you experience unusual or severe pain not relied by your pain medication, excessive bleedingor drainage, persistent nausea and vomiting, excessive swelling or redness, foul odor from incisionsite or fever over 100.6F, you need to call your physician. ? A follow-up phone call by a nurse will be made the day after your procedure.?? If you have stayed with us over night, you will not be receiving a follow-up phone call. ? Nausea and vomiting are a common side effect of prescription pain medication.?? We recommend that pills are not taken on an empty stomach.?? While taking any prescription pain medication you should not drive or drink alcohol. ? * Navi Leonard RN: PERFORM Event Display: Patient Education Leaflets Authored Date: [id number] NSAID Analgesic Schedule ?? 604 NSAID???s Analgesic Schedule ?? Pain is the primary source of illness following your procedure and can include dehydration, difficulty and painful swallowing, and weight loss. These symptoms can lead to increased post-operative visits and hospital readmission. The best way to control pain is to take pain medications regularly. Your doctor has recommended both Ibuprofen and Acetaminophen (generic/store brands are okay, too). These can be picked up over the counter at your pharmacy of choice. Follow the instructions on the bottle to determine the proper dosage to give. The simplest way to take these medications it to rotate the two at 3-hour intervals. Here is a sample diagram. The time you take your medications may vary from this example. Do not give Ibuprofen more than every 6 hours or Acetaminophen every 4 hours. Do not give Acetaminophen if your doctor has given you a prescription that contains Acetaminophen. ? Patient Care team information Care Team Personnel Name: Rita Perez MD Position: S Physician - Primary Care Member Role: PCP Address: Address: [address] [place] [id number]- Care Team Related Persons Name: LILIAN MCGHEE Name: ULICES ENCISO Address: home [id number] [place] [address] Name: SAM ARRIAGA Address: [employer] Address: home [address] [place] [address]
== END 2023-06-23 15:56 | disposition left against medical advice (07) ==
PROVIDERS: Emergency Provider Emergency Medicine; PCP Internal Medicine
DX: N39.0 Urinary tract infection, site not specified (principal); Z53.21 Procedure and treatment not carried out due to patient leaving prior to being seen by health care provider

== ENCOUNTER 2023-06-23 16:28 | Emergency (ER) | payer MEDICARE, SELFPAY | END 2023-06-23 18:44 | disposition left against medical advice (07) | PROVIDERS: Emergency Provider Emergency Medicine; PCP Internal Medicine | DX: Z53.21 Procedure and treatment not carried out due to patient leaving prior to being seen by health care provider (principal); N39.0 Urinary tract infection, site not specified ==

== ENCOUNTER 2023-07-15 13:21 | Emergency (ER) | payer MEDICARE, MEDICAID, SELFPAY ==
--- NOTE | 2023-07-15 | ECG_ITS ---
Test Reason : N/V/D Blood Pressure : / mmHG Vent. Rate : 120 BPM Atrial Rate : 120 BPM P-R Int : 142 ms QRS Dur : 078 ms QT Int : 328 ms P-R-T Axes : 026 -08 089 degrees QTc Int : 463 ms Sinus tachycardia Minimal voltage criteria for LVH, may be normal variant ( R in aVL ) Septal infarct , age undetermined Abnormal ECG When compared with ECG of 22-OCT-2021 15:59, No significant change was found Referred By: Generic ED Physician Electronically Signed By:ESTER GUSTAFSON
--- NOTE | ~2023-07-15 | CT_ITS ---
EXAMINATION: CT abdomen pelvis w IV con CLINICAL INFORMATION: Reason for Exam generalized abdominal pain COMPARISON: 2021 TECHNIQUE: Multidetector volumetric imaging was performed from the superior aspect of the liver through the pubic symphysis 85 mL of Omnipaque 350 injected Sagittal and coronal reformatted images were obtained on the technologist's workstation. This CT examination was performed using dose optimization techniques as appropriate, variously including the following: *Automated exposure control *Adjustment of mA and/or kV according to patient size (this includes techniques or standardized protocols for targeted exams where dose is matched to indication/reason for exam; i.e. extremities or head) *Use of iterative reconstruction technique DLP: 651 mGy-cm FINDINGS: LOWER THORAX: Included lung bases are clear. HEPATOBILIARY: No focal hepatic lesions. No biliary ductal dilatation. GALLBLADDER: Gallbladder unremarkable. SPLEEN: Spleen is normal in size. PANCREAS: No focal mass or ductal dilatation. STOMACH AND GASTROINTESTINAL TRACT: Stomach is grossly unremarkable. There is no bowel distention or thickening. Appendix is normal in size and there is air in its lumen. No CT evidence of appendicitis. Adjacent small 3 mm calcific density, could be a small appendicolith, versus vascular versus of right ovarian origin. ADRENALS: No adrenal nodules. KIDNEYS/URETERS: No hydronephrosis, stones or solid mass lesions. URINARY BLADDER: Partially decompressed. PELVIC VISCERA: Unremarkable PERITONEUM: No free air or fluid. LYMPH NODES: No lymphadenopathy. VASCULAR:Abdominal aorta normal in size, no aneurysm found. BONES, ABDOMINAL WALL AND SOFT TISSUES: Age-appropriate changes of the spine and skeletal system, no destructive osteolytic or osteosclerotic bone lesion found CT/CT abdomen pelvis w IV con IMPRESSION: 1. No CT evidence of acute intra-abdominal process to explain patient's pain symptoms. 2. There is 3 mm calcific density found in the right lower quadrant, [place] image, could be a small appendicolith, vascular calcification versus ovarian calcification,. The appendix however is normal in size, air within its lumen, clear surrounding fat, no CT evidence of acute appendicitis.
[2023-07-15 13:35] VITALS: BP 156/87; PULSE 121; RESP 18; TEMP 36.8; O2SAT 97; BMI 38.0
--- NOTE | 2023-07-15 13:48 | ED.GENADULT ---
HPI - General Adult General Chief complaint: Nausea/Vomiting/Diarrhea Stated complaint: N/V/D Time Seen by Provider: 07/15/23 16:24 Source: patient, RN notes reviewed and old records reviewed Mode of arrival: ambulatory Limitations: no limitations History of Present Illness ED Provider: Johann HPI narrative: 42-year-old female past medical history significant for insulin-dependent diabetes, obstructive sleep apnea, previous CVA, GERD, asthma, obesity, hypertension presents for evaluation of abdominal pain Patient reports generalized abdominal pain that seems to be worse in the left lower abdomen for the last 3 days pain She endorses diarrhea that is nonbloody. She endorses nausea, vomiting and subjective fevers and chills Denies any recent travel or sick contacts. She reports a history of 2 sections but no other abdominal surgeries She rates her pain as 8/10 No other complaints or concerns at this time Related Data Home Medications ?Medication ?Instructions ?Recorded ?Confirmed venlafaxine 150 mg 300 mg PO DAILY 06/01/20 04/15/23 capsule,extended release 24 hr (Effexor XR) clonidine HCl 0.2 mg tablet 0.2 mg PO DAILY 08/07/21 04/15/23 quetiapine 100 mg tablet 1 tab PO BEDTIME 09/12/21 04/15/23 quetiapine 400 mg tablet (Seroquel) 1 tab PO BEDTIME 09/12/21 04/15/23 trazodone 50 mg tablet 2 tab PO BEDTIME 09/12/21 04/15/23 clonazepam 1 mg tablet 1 mg PO TID 12/24/21 04/15/23 [id number]-hvrrmxeruqzpk-anpyxtkf 1 tab PO DAILY PRN 12/27/22 04/15/23 50 mg-325 mg-40 mg tablet Previous Rx's ?Medication ?Instructions ?Recorded flash glucose scanning reader #1 ea 05/31/21 (FreeStyle Clare 14 Day [place]) aspirin 81 mg tablet,delayed 81 mg PO DAILY #30 tabs 09/27/21 release (Adult Low Dose Aspirin) insulin aspart U-100 100 unit/mL 1 sliding scale dose subcut 08/19/22 (3 mL) subcutaneous pen (Novolog USEASDIRECTD #15 mL FlexPen U-100 Insulin aspart) omeprazole 20 mg capsule,delayed 20 mg PO DAILY #90 caps 07/03/23 release docusate sodium 100 mg capsule 100 mg PO DAILY #30 caps 09/06/22 mupirocin 2 % topical ointment 1 appl topical BID 7 days #22 grams 01/07/23 gabapentin 100 mg capsule 400 mg (4 x 100 mg) PO BID #120 04/15/23 caps meloxicam 7.5 mg tablet 7.5 mg PO DAILY #90 tabs 05/05/23 pen needle, diabetic 31 gauge x #50 ea 05/05/23/ (BD Ultra-Fine Short Pen Needle) atorvastatin 80 mg tablet 80 mg PO DAILY 30 days #30 tabs 05/17/23 lorazepam 0.5 mg tablet (Ativan) 0.5 mg PO .QD PRN anxiety #7 tabs 05/26/23 insulin glargine 100 unit/mL (3 34 unit (0.34 mL) subcut QPM #15 mL 05/31/23 mL) subcutaneous pen (Lantus Solostar U-100 Insulin) flash glucose sensor (FreeStyle #6 kits 06/04/23 Clare 14 Day Sensor kit) empagliflozin 25 mg tablet 25 mg PO DAILY #90 tabs 07/01/23 (Jardiance) ondansetron 4 mg disintegrating 4 mg PO Q8H PRN nausea and 07/15/23 tablet vomiting #20 tabs Allergies Allergy/AdvReac Type Severity Reaction Status Date / Time morphine [MORPHINE] Allergy Intermediate NAUSEA, Verified 07/15/23 13:36 rash oxycodone [From PERCOCET] Allergy Intermediate ITCHY, rash Verified 07/15/23 13:36 penicillin V Allergy Intermediate hives Verified 07/15/23 13:36 simvastatin Allergy Intermediate rash Verified 07/15/23 13:36 hydrocodone [From VICODIN] Allergy Mild RASH Verified 07/15/23 13:36 amoxicillin [Amoxicillin] Allergy Unknown UNKNOWN Verified 07/15/23 13:36 Review of Systems Constitutional: Constitutional: Reports body ache(s), Reports chills, Reports fever(s) and Denies headache(s) Eyes: Eyes: Denies blurry vision ENT: Denies headache(s) Cardiovascular: Cardiovascular: Denies chest pain and Denies dyspnea Respiratory: Respiratory: Denies cough and Denies dyspnea Gastrointestinal: Gastrointestinal: Reports abdominal pain, Denies melena, Denies hematochezia, Reports diarrhea, Reports loose stools, Reports nausea and Reports vomiting Musculoskeletal: Musculoskeletal: Reports back pain Integumentary/Breasts: Skin/Breast: Denies rash Neurologic: Denies headache(s) [facility] Past Medical History Medical History (Updated 07/15/23 @ 17:02 by Bayron Emerson) Sleep apnea Hypersomnia Right sided weakness [place] Bloating Difficulty swallowing Screening for hypothyroidism Contusion of right knee Burn Wound cellulitis Neck pain IBS (irritable bowel syndrome) GERD (gastroesophageal reflux disease) Crohn's disease Seizure disorder Tobacco abuse Asthma Hypercholesterolemia Hypertension Obesity (BMI 30-39.9) Anxiety and depression Type 2 diabetes mellitus with hyperglycemia, with long-term current use of insulin Migraine Panic disorder PTSD (post-traumatic stress disorder) OCD (obsessive compulsive disorder) Surgical History H/O bilateral breast reduction surgery H/O arthroscopy History of ankle surgery Previous section Family History Family History Father CVD (cerebrovascular disease) Diabetes Hypertension Mother Depression Chronic mental illness Maternal Grandmother Myocardial infarction CVD (cerebrovascular disease) Breast cancer Maternal Aunt Liver cancer Family/Other PTSD (post-traumatic stress disorder) Migraines Asthma Other Mental health disorder Social History Social History Housing: Apartment Alcohol intake: former Patient Tobacco Use Status: Current everyday Tobacco user Tobacco use type: Cigarette Cigarettes Per Day: 2 Smoked in Last 30 Days: Yes e-Cigarette/Vaping Use: Never Used Second Hand Smoke Exposure: Yes Use of substances other than those prescribed or required for medical reasons: Yes Substance Use Type: Marijuana Substance Use Frequency: Chronic Longstanding Advance Directives: No Advance Directives Information Provided: No Do you have a plan to hurt others: No Plan service: No Current occupational status: unemployed Current occupation: left handed Cognitive needs: No Hearing needs: No Vision needs: Yes (glasses) Physical Exam ED Vital Signs: Vital Signs - 24 hr 07/15/23 13:35 07/15/23 16:41 07/15/23 18:59 Temperature 98.2 F 98.3 F 98.6 F Pulse Rate 121 H 105 H 99 Respiratory Rate 18 14 15 Blood Pressure 156/87 H 140/86 H 131/66 Pulse Oximetry 97 96 98 Oxygen Delivery Method Room Air Room Air Room Air BMI result Body Mass Index 38.0 Const General: healthy appearing, comfortable, no acute distress, alert and awake Nutritional Appearance: well nourished Orientation/consciousness: patient oriented x3 HENMT Head: Yes normocephalic and Yes atraumatic Eyes Eyelids: Yes eyelids normal Conjunctivae: conjunctivae normal Sclerae: sclerae normal Corneas: corneas normal Pupils: Equal, round and reactive pupils present EOM: EOMs intact bilaterally Neck Neck: Yes full ROM Resp Effort & Inspection: normal respiratory effort, able to speak in complete sentences and not labored GI Inspection: No distended Palpation (GI): Soft to palpation, not firm, Tenderness to palpation present (GI) (Patient is diffusely tender without rebound or guarding) in the epigastrum, in the LLQ, in the RLQ, in the LUQ and in the RUQ, no guarding and not rigid Skin General skin exam: elasticity normal Neuro General: patient oriented x3 Cranial nerves: Yes Equal, round and reactive pupils present and Yes Bilaterally intact EOM present Cognition (Neuro): normal cognition Extrem Other: Moving all extremities well without any obvious deformities Course Course Course Narrative: RME performed by Mirna Zamora PA-C. Patient is a 42 year old assigned female at presenting to the emergency department with nausea, vomiting, and diarrhea. Patient states that over the last 3 days she has had nausea, vomiting, diarrhea, and abdominal pain. Detailed physical exam and review of systems are deferred to the power hair clipper. Labs and swabs ordered. Patient placed back in the waiting room pending room availability and results. Reevaluation(s) Reevaluation #1: Patient's workup largely unremarkable. I discussed this with the patient, symptoms possibly related to viral etiology. Will discharge the patient home with Zofran for nausea. Return precautions were given Time: 20:03 Medications Administered Discontinued Medications Generic Name Dose Route Start Last Admin Trade Name Freq PRN Reason Stop Dose Admin Hydromorphone HCl 1 mg 07/15/23 18:31 07/15/23 18:48 Hydromorphone Hcl 1 Mg/Ml Syringe IVPUSH 07/15/23 18:32 1 mg ONCE ONE Administration Protocol Sodium Chloride 1,000 mls @ 999 mls/hr 07/15/23 16:45 07/15/23 18:17 Ns IV 07/15/23 17:45 Infused .Q1H1M [place] Infusion Iohexol 100 ml 07/15/23 17:30 07/15/23 17:30 Iohexol 350 Mg/Ml 100 Ml Infus..Btl IV 07/15/23 17:31 85 ml ONCE ONE Administration Ketorolac Tromethamine 30 mg 07/15/23 16:31 07/15/23 16:53 Ketorolac Tromethamine 30 Mg/Ml Vial IVPUSH 07/15/23 16:32 30 mg ONCE ONE Administration Ondansetron HCl 4 mg 07/15/23 16:31 07/15/23 16:53 Ondansetron Hcl 4 Mg/2 Ml Vial IVPUSH 07/15/23 16:32 4 mg ONCE ONE Administration Medical Decision Making Medical Decision Making [facility] Narrative: 42-year-old female with past medical history as documented above presents for evaluation abdominal pain. She is quite tender on exam there is no rebound or guarding. [place] [address]. There is no anemia. Electrolytes are within normal limits, the patient is a known diabetic and her glucose is elevated to 188. Plan for CT scan of the abdomen pelvis to evaluate for infectious cause Differential Diagnosis Differential Diagnoses: The differential diagnosis associated with the presentation includes Abdominal pain Constipation Diverticulitis Pancreatitis Colitis Biliary Lab Data [facility] Lab Attestation statement: I reviewed the patient's lab results. Please see above in medical decision making 07/15/23 14:41 07/15/23 14:41 Labs: Lab Results 07/15/23 07/15/23 Range/Units 14:41 18:30 WBC 17.0 H (4.8-10.8) X10*3/uL RBC 5.54 H (4.20-5.50) X10*6/uL Hgb 14.1 (12.0-16.0) g/dl Hct 45.3 (37.0-47.0) % MCV 81.8 (80.0-98.0) fL MCH 25.5 L (27.0-33.0) pg MCHC 31.1 (31.0-35.0) g/dl RDW 17.2 H (11.0-16.0) % Plt Count 343 (160-400) X10*3/uL MPV 10.0 (9.4-12.3) fL Immature Gran % (Auto) 0.7 H (0.0-0.4) % Neut % (Auto) 71.3 (45-73) % Lymph % (Auto) 20.2 (20-40) % [place] % (Auto) 6.4 (2-11) % Eos % (Auto) 1.1 (0-4) % Baso % (Auto) 0.3 (0-2) % Lymph # (Auto) 3.4 (1.2-4.9) X10*3/uL [place] # (Auto) 1.1 (0.1-1.2) X10*3/uL Eos # (Auto) 0.2 (0.0-0.4) X10*3/uL Baso # (Auto) 0.1 (0.0-0.2) X10*3/uL Abs Immat Gran (auto) 0.12 H (0.00-0.03) X10*3/uL Absolute Neuts (auto) 12.1 H (2.0-8.3) x10*3/uL Absolute Nucleated RBC 0.000 (0.0-0.012) X10*3/uL Nucleated RBC % (auto) 0.0 (0.0-0.2) /100WBC Sodium 137 (135-145) mmol/L Potassium 4.3 (3.3-5.1) mmol/L Chloride 107 (96-108) mmol/L Carbon Dioxide 19 L (22-29) mmol/L Anion Gap 15 (12-20) BUN 10 (9-16) mg/dL Creatinine 0.73 (0.5-1.4) mg/dL Estim Creat Clear Calc 96.1 Estimated GFR > 60 Random Glucose 188 H (60-115) mg/dL Calcium 9.4 (8.4-10.2) mg/dL Total Bilirubin 0.2 (0.0-1.0) mg/dL AST 23 (5-31) U/L ALT 19 (0-31) U/L Alkaline Phosphatase 91 (39-117) U/L Total Protein 9.0 H (6.5-8.0) g/dL Albumin 4.4 (3.5-5.0) g/dL Lipase 32 (8-78) U/L Beta HCG, Quant < 2 mIU/mL Urine Color Yellow Urine Appearance Clear Urine pH 5.5 (5.0-9.0) Ur Specific [place] >= 1.030 H (1.005-1.025) Urine Protein Negative (Neg-Trace) mg/dL Urine Glucose (UA) >=1000 H (Negative) mg/dL Urine Ketones 15 (Negative) mg/dL Urine Blood Negative (Negative) Urine Nitrite Negative (Negative) Ur Leukocyte Esterase Negative (Negative) Urine RBC 0-2 (0-2) /HPF Urine WBC 11-20 H (0-5) /HPF Ur Squamous Epith Cells 6-10 (0-2) /HPF Urine Bacteria 2+ (None Seen) Hyaline Casts 0-2 (0-2) /LPF Influenza Type A (PCR) NEGATIVE (Negative) Influenza Type B (PCR) NEGATIVE (Negative) RSV RNA Qual (PCR) NEGATIVE (Negative) SARS-CoV-2 RNA (RT-PCR) NEGATIVE (Negative) Independent Interpretation I performed an independent interpretation of an: CT Scan Interpretation: Nonobstructive pattern, no obvious acute intra-abdominal pathology Radiology Impression Discussion of test interpretation with radiology: I have reviewed the radiologist's reading. Radiologist Impression: CT/CT abdomen pelvis w IV con IMPRESSION: 1. No CT evidence of acute intra-abdominal process to explain patient's pain symptoms. 2. There is 3 mm calcific density found in the right lower quadrant, [place] image, could be a small appendicolith, vascular calcification versus ovarian calcification,. The appendix however is normal in size, air within its lumen, clear surrounding fat, no CT evidence of acute appendicitis. Discharge Plan Discharge Clinical Impression: Abdominal pain Patient Disposition: Home, Self-Care Instructions: Abdominal Pain (ED) Additional Instructions: Your workup in the ER today was reassuring. Your symptoms may be related to a viral origin. Use Zofran as needed for nausea/vomiting Drink lots of fluids, small sips at a time Follow-up your primary doctor, return for new or worsening symptoms Prescriptions: New ondansetron 4 mg tablet,disintegrating 4 mg PO Q8H PRN (Reason: nausea and vomiting) Qty: 20 0RF No Action (DME) FreeStyle Clare 14 Day [place] Misc See Rx Instructions .ROUTE .MEDSUPPLY Qty: 1 0RF Rx Instructions: As directed omeprazole 20 mg capsule,delayed release(DR/EC) 20 mg PO DAILY Qty: 90 2RF insulin aspart U-100 [Novolog FlexPen U-100 Insulin] 100 unit/mL (3 mL) insulin pen 1 sliding scale dose subcut USEASDIRECTD Qty: 15 11RF Rx Instructions: according to sliding scale subcutaneously 3 times a day; sliding scale given 151-230 2 units, 231-280 4 units, 281-330 6 units, 331-380 8 units and > 380 10 units meloxicam 7.5 mg tablet 7.5 mg PO DAILY Qty: 90 1RF (DME) pen needle, diabetic [BD Ultra-Fine Short Pen Needle] 31 gauge x 5/16 needle See Rx Instructions .ROUTE .MEDSUPPLY Qty: 50 11RF Rx Instructions: As directed daily with insulin pen atorvastatin 80 mg tablet 80 mg PO DAILY 30 Days Qty: 30 3RF lorazepam [Ativan] 0.5 mg tablet 0.5 mg PO .QD PRN (Reason: anxiety) Qty: 7 0RF insulin glargine [Lantus Solostar U-100 Insulin] 100 unit/mL (3 mL) insulin pen 34 unit subcut QPM Qty: 15 3RF (DME) FreeStyle Clare 14 Day Sensor Kit See Rx Instructions .ROUTE .MEDSUPPLY Qty: 6 3RF Rx Instructions: As directed Jardiance 25 mg tablet 25 mg PO DAILY Qty: 90 3RF trazodone 50 mg tablet 2 tab PO BEDTIME quetiapine [Seroquel] 400 mg tablet 1 tab PO BEDTIME quetiapine 100 mg tablet 1 tab PO BEDTIME docusate sodium 100 mg capsule 100 mg PO DAILY Qty: 30 0RF clonazepam 1 mg tablet 1 mg PO TID Rx Instructions: 2 TABS in the AM and 1 Tab in the PM venlafaxine [Effexor XR] 150 mg capsule,extended release 24hr 300 mg PO DAILY aspirin [Adult Low Dose Aspirin] 81 mg tablet,delayed release (DR/EC) 81 mg PO DAILY Qty: 30 0RF mupirocin 2 % ointment 1 appl topical BID 7 Days Qty: 22 0RF clonidine HCl 0.2 mg tablet 0.2 mg PO DAILY gabapentin 100 mg capsule 400 mg PO BID Qty: 120 12RF qjanzcpwvi-qjuybrigdzaet-ewiq 50-325-40 mg tablet 1 tab PO DAILY PRN Print Language: Icelandic
[2023-07-15 14:44] LABS: MANUAL DIFF FLAG NO
[2023-07-15 14:46] LABS: Basophils Absolute Auto 0.1 X10*3/uL (0.0-0.2); Basophils Percent Auto 0.3 % (0-2); Eosinophils Absolute Auto 0.2 X10*3/uL (0.0-0.4); Eosinophils Percent Auto 1.1 % (0-4); Hematocrit 45.3 % (37.0-47.0); Hemoglobin 14.1 g/dl (12.0-16.0); Imm Gran Abs Auto 0.12 X10*3/uL (0.00-0.03); Imm Gran Pct Auto 0.7 % (0.0-0.4); Lymphocytes Absolute Auto 3.4 X10*3/uL (1.2-4.9); Lymphocytes Percent Auto 20.2 % (20-40); Mean Corpuscular HGB Conc 31.1 g/dl (31.0-35.0); Mean Corpuscular Hemoglobin 25.5 pg (27.0-33.0); Mean Corpuscular Volume 81.8 fL (80.0-98.0); Monocytes Absolute Auto 1.1 X10*3/uL (0.1-1.2); Monocytes Percent Auto 6.4 % (2-11); Neutrophils Absolute Auto 12.1 x10*3/uL (2.0-8.3); Neutrophils Percent Auto 71.3 % (45-73); Platelet Count 343 X10*3/uL (160-400); Red Blood Count 5.54 X10*6/uL (4.20-5.50); Red Cell Distribution Width 17.2 % (11.0-16.0)
[2023-07-15 15:02] LABS: Alanine Aminotransferase 19 U/L (0-31); Albumin Level 4.4 g/dL (3.5-5.0); Alkaline Phosphatase 91 U/L (39-117); Anion Gap 15 (12-20); Aspartate Amino Transferase 23 U/L (5-31); Bilirubin Total 0.2 mg/dL (0.0-1.0); Blood Urea Nitrogen 10 mg/dL (9-16); Calcium 9.4 mg/dL (8.4-10.2); Carbon Dioxide 19 mmol/L (22-29); Chloride 107 mmol/L (96-108); Creatinine Clr Calc Pharmacy 96.1; Estimated Glomerular Filt Rate > 60; Glucose Random 188 mg/dL (60-115); Potassium 4.3 mmol/L (3.3-5.1); Sodium 137 mmol/L (135-145)
[2023-07-15 15:09] LABS: HCG Quantitative < 2 mIU/mL
[2023-07-15 15:30] LABS: Influenza A PCR NEGATIVE (Negative); Influenza B PCR NEGATIVE (Negative); Resp Syncy Virus RNA Qual PCR NEGATIVE (Negative); SARS COV2 PCR INHOUSE NEGATIVE (Negative)
[2023-07-15 15:40] LABS: Lipase 32 U/L (8-78)
[2023-07-15 16:41] VITALS: BP 140/86; PULSE 105; RESP 14; TEMP 36.8; O2SAT 96
[2023-07-15] MEDS: 0.9 % Sodium Chloride 1,000 ML 999 ML IV (16:50)
[2023-07-15] MEDS: ondansetron HCL 4 MG/2 ML VIAL IVPUSH (16:53)
[2023-07-15] MEDS: Ketorolac Tromethamine 30 MG/ML VIAL IVPUSH (16:53)
[2023-07-15] MEDS: iohexoL 350 MG/ML 100 ML INFUS..BTL IV (17:30)
[2023-07-15 18:39] LABS: Appearance Urine Clear; Color Urine Yellow; Glucose Urine UA >=1000 mg/dL (Negative); Leukocyte Esterase Urine Negative (Negative); Nitrite Urine Negative (Negative); PH 5.5 (5.0-9.0); Specific Gravity - Urine >= 1.030 (1.005-1.025); UMIC TRIGGER UACC YES; Urine Blood Negative (Negative); Urine Ketones 15 mg/dL (Negative); Urine Protein Negative (Neg-Trace)
[2023-07-15] MEDS: HYDROmorphone HCl 1 MG/ML SYRINGE IVPUSH (18:48)
[2023-07-15 18:59] VITALS: BP 131/66; PULSE 99; RESP 15; TEMP 37; O2SAT 98
[2023-07-15 19:03] LABS: UACC Culture Trigger YES
[2023-07-15 19:04] LABS: Bacteria Urine 2+ (None Seen); RBC Urine 0-2 /HPF (0-2)
[2023-07-15 19:05] LABS: Hyaline Casts Urine 0-2 /LPF (0-2)
[2023-07-15 20:25] VITALS: BP 160/87; PULSE 100; RESP 17; TEMP 36.6; O2SAT 97
[2023-07-15 20:26] VITALS: BP 160/87; PULSE 100; RESP 17; TEMP 36.6; O2SAT 97
== END 2023-07-15 20:27 | disposition home or self-care (01) ==
PROVIDERS: Physician Assistant Medical; Emergency Provider Emergency Medicine; PCP Internal Medicine
DX: R10.31 Right lower quadrant pain (principal); R10.32 Left lower quadrant pain; R10.813 Right lower quadrant abdominal tenderness; R10.814 Left lower quadrant abdominal tenderness; R11.2 Nausea with vomiting, unspecified; R19.7 Diarrhea, unspecified; E11.9 Type 2 diabetes mellitus without complications; Z79.4 Long term (current) use of insulin; Z86.73 Personal history of transient ischemic attack (TIA), and cerebral infarction without residual deficits; Z03.818 Encounter for observation for suspected exposure to other biological agents ruled out
CPT/HCPCS: 0241U; 36415; 74177; 80053; 81001; 83690; 84702; 85025; 87086; 87147; 93005; 96361; 96374; 96375; 99284; 99285; J1170; J1885; J2405; Q9967

== ENCOUNTER → 2023-07-15 14:00 | Outpatient (BNV) | payer MEDICARE, MEDICAID, SELFPAY | PROVIDERS: PCP Internal Medicine; Visit Provider Internal Medicine | DX: R00.0 Tachycardia, unspecified (principal); R94.31 Abnormal electrocardiogram [ECG] [EKG] | CPT/HCPCS: 93010 ==

== ENCOUNTER 2023-10-24 08:56 | Outpatient (AMB) | payer MEDICARE, MEDICAID, SELFPAY ==
--- NOTE | 2023-10-24 08:59 | MHC.OFFVIS ---
Vital Signs 10/24/23 09:04 Height 5 ft 2 in Weight 195 lb 8.8 oz BMI 35.8 BP 112/76 Blood Pressure Location Rt brachial Position Sitting Pulse 107 H Pulse Source Pulse Oximeter Intake Visit Reasons: T2DM Intake Note: New patient present today for Diabetes Management, referred by PCP. Last Diabetic Eye exam: Within the year Last Podiatry Visit: Does not see a Track Car Operator Random Glucose: 387 mg/dl HgA1C: 11.5% Warranty Manager Required: No Accompanied by: Spouse Allergies morphine [MORPHINE] Allergy (Intermediate, Verified 10/24/23 09:05) NAUSEA, rash oxycodone [From PERCOCET] Allergy (Intermediate, Verified 10/24/23 09:05) ITCHY, rash penicillin V Allergy (Intermediate, Verified 10/24/23 09:05) hives simvastatin Allergy (Intermediate, Verified 10/24/23 09:05) rash hydrocodone [From VICODIN] Allergy (Mild, Verified 10/24/23 09:05) RASH amoxicillin [Amoxicillin] Allergy (Unknown, Verified 10/24/23 09:05) UNKNOWN Medication List - Last Reconciled 10/24/23 by VIRI Murphy aspirin (Adult Low Dose Aspirin) 81 mg PO DAILY 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 meter,continuous (FreeStyle Clare 3 [place]) as directed 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 sensor (FreeStyle Clare 3 Sensor device) apply new sensor every 14 days as directed toixqmgcyo-vqmvcazioejrd-swfw 50-325-40 mg 1 tab PO DAILY PRN clonazepam 1 mg PO TID clonidine HCl 0.2 mg PO DAILY docusate sodium 100 mg PO DAILY empagliflozin (Jardiance) 25 mg PO DAILY gabapentin 400 mg (4 x 100 mg) PO BID insulin aspart U-100 (Novolog FlexPen U-100 Insulin aspart) 1 sliding scale dose subcut USEASDIRECTD insulin glargine (Lantus Solostar U-100 Insulin) 40 units subcut QPM lorazepam (Ativan) 0.5 mg PO .QD PRN meloxicam 7.5 mg PO DAILY mupirocin 2% 1 appl topical BID 7 days omeprazole 20 mg PO DAILY ondansetron 4 mg PO Q8H PRN pen needle, diabetic (BD Ultra-Fine Short Pen Needle) As directed daily with insulin pen quetiapine (Seroquel) 1 tab PO BEDTIME quetiapine 1 tab PO BEDTIME rosuvastatin 10 mg PO .every other night 90 days tirzepatide (Mounjaro) 2.5 mg (0.5 mL) subcut QWEEK trazodone 2 tabs PO BEDTIME venlafaxine ER (Effexor XR) 300 mg PO DAILY HPI Comments Details: This is a 42-year-old female with a past medical history of type 2 diabetes, YAHIR, CVA, GERD, tobacco use, asthma, hyperlipidemia, hypertension and obesity presenting for initial endocrinology consult for diabetic management. Accompanied by leena. She was previously seen by endocrinology in [place]. She developed gestational diabetes 14 years ago and then type II diabetes. Requests clare 3. She is out of her old sensors. She has a fingerstick glucometer, but she didn't bring it with her today. Hemoglobin a1c 11.5%. POC 387. Current medication regimen: Jardiance 25 mg, Novolog sliding scale (not taking this), Lantus 40 units nightly. Metformin discontinued due to GI side effects. Compliance issues: Last PCP note indicates noncompliance with treatment regimen. Diet: Breakfast- 6am 2-3 coffee (creamer regular) Lunch-honey BBQ chips, occasional donuts and cookies Iltrak-5-4kb meat, tries to do veggie, corn breast or pasta or rice with this 4 times per week Drinks sugar free crystal light during the day Snacks/desserts: ice cream, chips, sometimes cookies, sometimes popcorn Averages 7 cigarettes per day No alcohol use. Hypoglycemia symptoms: in the past shaky, weak-corrected with juice. Hyperglycemia symptoms: polyuria, polydipsia, blurry when monitor reads high Eye exam: UTD Microvascular complications: neuropathy Macrovascular complications: CVA about 2 years ago Hypertension: Clonidine-prescribed for psychiatric dx. Hyperlipidemia: treated with atorvastatin 80 mg, but she stopped it due myalgias. Patient also says for 7-8 days she has left sided pain that started around the flank and is now in the lower left abdomen. It is fairly constant. It was worse over the weekend than it is now. No fevers, chills or vomiting. Currently it is mild/moderate. Patient was advised to contact her PCP to see if she can be seen today otherwise she should be seen at urgent care or the ER today. She agreed to this plan. ROS: Constitutional: No unexplained weight loss, fever, chills, fatigue or night sweats. Eyes: No vision changes, blurry vision, double vision Respiratory: No shortness of breath Cardiovascular: No chest pain Gastrointestinal: No anorexia, nausea, vomiting or diarrhea. No blood in stool. Genitourinary: No dysuria, hematuria or vaginal discharge/bleeding. Neurologic: No headache, dizziness, syncope, unilateral weakness, ataxia Endocrine: see HPI Physical exam: Constitutional: Alert, in no distress. Eyes: Pupils are equal, round and reactive to light. Extraocular muscles intact. Neck: Supple, Full range of motion. No lymphadenopathy. No palpable thyroid masses. Respiratory: Clear to auscultation. : no CVA tenderness. Cardiovascular: S1 S2 regular. No murmurs. Gastrointestinal: Abdomen soft, mildly tender to the LLQ, non-distended. Normal bowel sounds. No palpable masses. No rebound or guarding. Right foot: Warm and well perfused. No clubbing, cyanosis or edema. DP pulse 1+. Decreased vibratory sensation. Intact sensation to monofilament with exception of the great toe. Left foot: Warm and well perfused. No clubbing, cyanosis or edema. DP pulse 1+. Decreased vibratory sensation. Intact sensation to monofilament. [facility] Medical History (Updated 07/16/23 @ 00:01 by Vel Gomez) Sleep apnea Hypersomnia Right sided weakness Burping Bloating Difficulty swallowing Screening for hypothyroidism Contusion of right knee Burn Wound cellulitis Neck pain IBS (irritable bowel syndrome) GERD (gastroesophageal reflux disease) Crohn's disease Seizure disorder Tobacco abuse Asthma Hypercholesterolemia Hypertension Obesity (BMI 30-39.9) Anxiety and depression Type 2 diabetes mellitus with hyperglycemia, with long-term current use of insulin Migraine Panic disorder PTSD (post-traumatic stress disorder) OCD (obsessive compulsive disorder) Surgical History H/O bilateral breast reduction surgery H/O arthroscopy History of ankle surgery Previous section Family History Father CVD (cerebrovascular disease) Diabetes Hypertension Mother Depression Chronic mental illness Maternal Grandmother Myocardial infarction CVD (cerebrovascular disease) Breast cancer Maternal Aunt Liver cancer Family/Other PTSD (post-traumatic stress disorder) Migraines Asthma Other Mental health disorder Social History Housing: Apartment Alcohol intake: former Patient Tobacco Use Status: Current everyday Tobacco user Tobacco use type: Cigarette Cigarettes Per Day: 2 e-Cigarette/Vaping Use: Never Used Second Hand Smoke Exposure: Yes Substance Use Type: Marijuana service: No Current occupational status: unemployed Current occupation: left handed Cognitive needs: No Hearing needs: No Vision needs: Yes (glasses) Physical Exam Vital Signs: Last Vital Signs Pulse 107 H 10/24/23 09:04 BP 112/76 10/24/23 09:04 BMI result Body Mass Index 35.8 Results AMB Hemoglobin A1c AMB Hemoglobin A1c 11.5 % Last Edit by NASRIN Watson on 10/24/23 09:26 Results Reviewed Results Reviewed: Laboratory Last Values Glucose (Clinic) 387 mg/dL (60-115) H* 10/24/23 09:13 Hgb A1c (Clinic) 11.5 % (4.0-6.0) H 10/24/23 09:23 Laboratory Tests 01/07/23 04/15/23 04/16/23 09:55 09:20 08:36 BUN Creatinine Estim Creat Clear Calc Estimated GFR Random Glucose Hgb A1c (Clinic) 9.6 H 11.2 H AST ALT Alkaline Phosphatase Triglycerides Cholesterol LDL Cholesterol, Calc HDL Cholesterol TSH Free T4 Urine Creatinine 50.27 Urine Microalbumin 5.0 Microalb/Creat Ratio 9.9 04/16/23 07/15/23 08:37 14:41 BUN 10 Creatinine 0.73 Estim Creat Clear Calc 96.1 Estimated GFR > 60 Random Glucose 188 H Hgb A1c (Clinic) AST 23 ALT 19 Alkaline Phosphatase 91 Triglycerides 307 H Cholesterol 240 H LDL Cholesterol, Calc 132 H HDL Cholesterol 47 TSH 0.87 Free T4 0.79 Urine Creatinine Urine Microalbumin Microalb/Creat Ratio Assessment & Plan Assessment & Plan (1) Type 2 diabetes mellitus with hyperglycemia, with long-term current use of insulin: Comment: Dr. Anderson Code(s): E11.65 - Type 2 diabetes mellitus with hyperglycemia; Z79.4 - longterm (current) use of insulin Category: Medical Plan: In summary this is a 42 year old female with poorly controlled Type II DM with noncompliance with her medication regimen. She is not taking Novolog. She says it's a lot of injections during the day. Will set up appt with DE to discuss Cequr Simplicity device. Trial of Mounjaro 2.5 mg once weekly. Discussed need for dose titration based on efficacy and tolerability. The patient denies contraindications to GLP-1 receptor agonist. We reviewed the FDA preliminary evaluation that has not found evidence that these medications cause suicidal thoughts or actions, but the investigation is ongoing. If the patient develops these symptoms they will stop taking the medication immediately and contact the office. We reviewed more common side effects such as bloating, constipation, nausea and vomiting. Continue Jardiance and Lantus. Freestyle clare 3 sent to pharmacy. Will schedule follow up in 6 weeks to review medications and sensor data. (2) Hypercholesterolemia: Code(s): E78.00 - Pure hypercholesterolemia, unspecified Category: Medical Plan: Trial of Crestor, low dose to start to see if she can tolerate it. If she develops myalgias again she will stop it an contact me. If that is the case I will see if PA can be done for Repatha. Lifestyle modifications reviewed. (3) Hypertension: Code(s): I10 - Essential (primary) hypertension Category: Medical Qualifiers: Hypertension type: essential hypertension Qualified Code(s): I10 - Essential (primary) hypertension Plan: Well controlled. We will discuss addition of low dose OKSANA or ARB at next appointment for renal protection with diabetes and HTN. Plan Follow up in 6 weeks for diabetes. 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) use of insulin Referrals Diabetes Education Referral E11.65 - Type 2 diabetes mellitus with hyperglycemia, Z79.4 - rubber tile floor layer (current) use of insulin Medications: New rosuvastatin 10 mg PO .every other night 90 days 45 tabs 0RF 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 sensor (FreeStyle Clare 3 Sensor device) apply new sensor every 14 days as directed 2 ea 11RF 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 meter,continuous (FreeStyle Clare 3 [place]) as directed 1 ea 0RF tirzepatide (Mounjaro) for 4 weeks 2.5 mg (0.5 mL) subcut QWEEK 2 mL 0RF glucose (Dex4 Glucose Quick Dissolve) until symptoms of low blood sugar are controlled 16 grams (4 x 4 gram) PO Q15M PRN 30 tabs 3RF hypoglycemia Discontinued atorvastatin Discontinued Reason: Doctor's Order 80 mg PO DAILY 30 days 30 tabs 1RF E78.00 - Pure hypercholesterolemia, unspecified Patient Instructions: I sent freestyle clare 3 and reader to the pharmacy. You will be contacted to schedule an appointment with the special education paraeducator. I submitted Mounjaro 2.5 mg weekly to the pharmacy. It will need prior authorization. If you experience low blood sugar, treat this by eating a chewable fruit candy like skittles or jelly beans (about 8 pieces), 4 ounces (1/2 cup) of fruit juice (not diet), 1 tablespoon of honey or 4 glucose tablets. If your blood sugar is under 50, take double the amount of one of the above. Recheck your blood sugar in 15 minutes. Coding Level of Care Code New Pt Level 5 (16016) Complex EM visit Add On G2211 Diagnoses Type 2 diabetes mellitus with hyperglycemia, with long-term current use of insulin E11.65; Z79.4 Hypercholesterolemia E78.00 Essential hypertension I10 Hypertension type: essential hypertension Time Spent (min) 70 Comment reviewing chart, direct patient care, completing documentation
[2023-10-24 09:04] VITALS: BP 112/76; PULSE 107; BMI 35.8
[2023-10-24 09:18] LABS: Glucose, Whole Blood 387 mg/dL (60-115)
== END 2023-10-24 09:56 | disposition home or self-care (01) ==
PROVIDERS: PCP Internal Medicine; Visit Provider Physician Assistant Medical
DX: E11.65 Type 2 diabetes mellitus with hyperglycemia (principal); Z79.4 Long term (current) use of insulin; E78.00 Pure hypercholesterolemia, unspecified; I10 Essential (primary) hypertension
CPT/HCPCS: 99205; G2211

== ENCOUNTER → 2023-10-24 08:56 | Outpatient (BNVA) | payer MEDICARE, MEDICAID, SELFPAY | PROVIDERS: PCP Internal Medicine; Visit Provider Physician Assistant Medical | DX: E11.65 Type 2 diabetes mellitus with hyperglycemia (principal); E78.00 Pure hypercholesterolemia, unspecified; I10 Essential (primary) hypertension; Z79.4 Long term (current) use of insulin | CPT/HCPCS: 82947; 83036; 99202 ==

== ENCOUNTER 2023-11-17 09:57 | Outpatient (AMB) | payer MEDICARE, MEDICAID, SELFPAY ==
--- NOTE | 2023-11-17 11:04 | MHC.AMDMED ---
Intake Intake Visit Reasons: T2DM/CONFIRMED Chief Resource Officer Required: No Accompanied by: Spouse Allergies morphine [MORPHINE] Allergy (Intermediate, Verified 10/24/23 09:05) NAUSEA, rash oxycodone [From PERCOCET] Allergy (Intermediate, Verified 10/24/23 09:05) ITCHY, rash penicillin V Allergy (Intermediate, Verified 10/24/23 09:05) hives simvastatin Allergy (Intermediate, Verified 10/24/23 09:05) rash hydrocodone [From VICODIN] Allergy (Mild, Verified 10/24/23 09:05) RASH amoxicillin [Amoxicillin] Allergy (Unknown, Verified 10/24/23 09:05) UNKNOWN HPI Comprehensive Diabetes Asmnt Most Recent Diabetes Results: Microalb/Creat Ratio 9.9 ug/mg cr (<30) 04/16/23 Cholesterol 240 mg/dL (<200) H 04/16/23 HDL Cholesterol 47 mg/dL (>40) 04/16/23 Triglycerides 307 mg/dL (<150) H 04/16/23 Creatinine 0.73 mg/dL (0.5-1.4) 07/15/23 Blood Urea Nitrogen 10 mg/dL (9-16) 07/15/23 Sodium 137 mmol/L (135-145) 07/15/23 Potassium 4.3 mmol/L (3.3-5.1) 07/15/23 Chloride 107 mmol/L (96-108) 07/15/23 Carbon Dioxide 19 mmol/L (22-29) L 07/15/23 Calcium 9.4 mg/dL (8.4-10.2) 07/15/23 AST 23 U/L (5-31) 07/15/23 ALT 19 U/L (0-31) 07/15/23 Total Protein 9.0 g/dL (6.5-8.0) H 07/15/23 Albumin 4.4 g/dL (3.5-5.0) 07/15/23 [facility] Medical History (Updated 07/16/23 @ 00:01 by Background Jason) Sleep apnea Hypersomnia Right sided weakness Burping Bloating Difficulty swallowing Screening for hypothyroidism Contusion of right knee Burn Wound cellulitis Neck pain IBS (irritable bowel syndrome) GERD (gastroesophageal reflux disease) Crohn's disease Seizure disorder Tobacco abuse Asthma Hypercholesterolemia Hypertension Obesity (BMI 30-39.9) Anxiety and depression Type 2 diabetes mellitus with hyperglycemia, with long-term current use of insulin Migraine Panic disorder PTSD (post-traumatic stress disorder) OCD (obsessive compulsive disorder) Surgical History H/O bilateral breast reduction surgery H/O arthroscopy History of ankle surgery Previous section Family History Father CVD (cerebrovascular disease) Diabetes Hypertension Mother Depression Chronic mental illness Maternal Grandmother Myocardial infarction CVD (cerebrovascular disease) Breast cancer Maternal Aunt Liver cancer Family/Other PTSD (post-traumatic stress disorder) Migraines Asthma Other Mental health disorder Social History Housing: Apartment Alcohol intake: former Patient Tobacco Use Status: Current everyday Tobacco user Tobacco use type: Cigarette Cigarettes Per Day: 2 e-Cigarette/Vaping Use: Never Used Second Hand Smoke Exposure: Yes Substance Use Type: Marijuana service: No Current occupational status: unemployed Current occupation: left handed Cognitive needs: No Hearing needs: No Vision needs: Yes (glasses) Assessment & Plan Assessment & Plan (1) Uncontrolled diabetes mellitus with hyperglycemia, with long-term current use of insulin: Code(s): E11.65 - Type 2 diabetes mellitus with hyperglycemia; Z79.4 - 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 The patient met all learning objectives and was able to verbalize understanding and provide teach back of education topics discussed . The patient was provided with the opportunity to ask questions and all questions were answered. Patient Assessment Assess patient education level/literacy/barriers Patient questions/concerns patient's last A1c on 10/24/23 11.5% Patient reported to me today that she has not been taking NovoLog before meals as prescribed, she has increased her Lantus on her own to 70 units daily. Reviewed with patient action of both Lantus and NovoLog. At today's visit patient agreed to resume taking NovoLog 15 minutes prior to meals. She has also recently started monitor 2.5 mg, reports that she has had some sulfur burping but is willing to continue at this time with medication Patient is also interested in insulin pump, reviewed different types of insulin plus briefly at today's visit but will follow-up with insulin pump info appointment What is Diabetes? Pathophysiology How the body produces and uses insulin Identify type of DM Risk factors Signs of Diabetes Brief overview of Diabetes Management Monitoring blood sugar Following a meal plan Regular exercise Maintaining a healthy weight Taking medication as needed Members of the care team (PCP, RN, MA, RD, CDE, paralegal specialist) Blood glucose monitoring When/how often to test Target blood sugar ranges Patient using freestyle Clare 3 Patient's average glucose for the past 14 days 314 mg/dL Patient above target 95% Patient at target 5% Patient below target 0% Introduction to Nutrition Importance of healthy diet in managing DM Diet is personalized to individual preference Review patient?s regular diet/food preferences Who prepares meals/does food shopping/ Dining out?/ Barriers? How diet effects glucose Eating 3 balanced meals a day with small, healthy snacks between meals Review food groups Carbohydrates: What is a carbohydrate/Which food/food groups are considered carbohydrates Effect of carbohydrates on blood glucose Portion sizes Reading food labels Basic carb counting (if applicable per nursing assessment) Plate method Meal planning Recommendations: Follow plate method, consistent carbs and read nutritional labels. Smart Goal: Educational Materials: The patient was provided with the following written educational materials: Planning Healthy Meals Handout Patient Response to instructions: Comprehension of Instructions: Fair Readiness to make changes: Contemplation How confident they feel about making changes: Positive Portions of this note were created using voice recognition software, please excuse any words or phrases that may have been misinterpreted. Incluir actividad diaria regular. ADA recomienda 30 minutos de ejercicio 5 d?as a la semana. P?rdida de peso, hable con el PCP o el cardi?logo antes de comenzar un nuevo plan. Mida el nivel de az?car en la lucille seg?n las indicaciones; Ayuno y comida m?s susy de 2hpp. Observe las tendencias en los resultados. Utilice los resultados y eval?e c?mo los alimentos, la actividad f?tom y los medicamentos afectan los resultados de az?car en la lucille. Lleve el gluc?metro o CGM a la pr?xima visita. Conocer los medicamentos para la diabetes, luong acci?n, los efectos secundarios, la eficacia, la toxicidad, la dosis prescrita, el momento y la frecuencia de administraci?n apropiados, el efecto de las dosis olvidadas y retrasadas y las instrucciones de almacenamiento, viaje y seguridad. T?cnicas de resoluci?n de problemas para el seguimiento de episodios de hipo/hiperglucemia y tratamientos. Reducir los comportamientos de reducci?n de riesgos, dejar de fumar, ex?menes regulares de ojos, pies y dentales. Patient Instructions: Include regular daily activity. ADA recommends 30 minutes of exercise 5 days a week. Weight loss talk to PCP or [employer] Lecturer before starting new plan. Test blood sugar as directed; Fasting and 2hpp largest meal. Watch trends in results. Utilize results and to assess how food, physical activity and medications affect blood sugar results. Bring glucometer or CGM to next visit. Be knowledgeable about diabetes medication, its action, side effects, efficacy, toxicity, prescribed dosage, appropriate timing and frequency of administration, effect of missed and delayed doses and instructions for storage, travel and safety. Problem solving techniques to monitor hypo/hyperglycemia episodes and treatments. Reduce risk reduction behaviors, smoking cessation, regular eye, foot and dental examinations. Coding Level of Care Code Est Pt Level 1 (98104) Diagnoses Uncontrolled diabetes mellitus with hyperglycemia, with long-term current use of insulin E11.65; Z79.4
== END 2023-11-17 11:06 | disposition home or self-care (01) ==
PROVIDERS: PCP Internal Medicine; Visit Provider Registered Nurse Diabetes Educator
DX: E11.65 Type 2 diabetes mellitus with hyperglycemia (principal); Z79.4 Long term (current) use of insulin

== ENCOUNTER → 2023-11-17 09:57 | Outpatient (BNVA) | payer MEDICARE, MEDICAID, SELFPAY | PROVIDERS: PCP Internal Medicine; Visit Provider Registered Nurse Diabetes Educator | DX: E11.65 Type 2 diabetes mellitus with hyperglycemia (principal); Z79.4 Long term (current) use of insulin | CPT/HCPCS: 99211 ==

== ENCOUNTER 2023-12-05 08:59 | Outpatient (AMB) | payer MEDICARE, MEDICAID, SELFPAY ==
--- NOTE | 2023-12-05 09:01 | A.OFFVIS_ITS ---
Vital Signs 12/05/23 09:03 Height 5 ft 2 in Weight 200 lb 13.458 oz BMI 36.7 BP 128/76 Blood Pressure Location Lt brachial Position Sitting Pulse 114 H Pulse Source Pulse Oximeter Intake Visit Reasons: T2DM/LVM Intake Note: Patient present today to follow up on Type 2 Diabetes Mellitus. Last Diabetic Eye exam: Within the year Last Podiatry Visit: Does not see a Dairy Chemist Random Glucose: 269 mg/dl HgA1C: 11.5% 10/24/23 Printing Press Operator Required: No Accompanied by: Self / Same As Patient Allergies morphine [MORPHINE] Allergy (Intermediate, Verified 12/05/23 09:08) NAUSEA, rash oxycodone [From PERCOCET] Allergy (Intermediate, Verified 12/05/23 09:08) ITCHY, rash penicillin V Allergy (Intermediate, Verified 12/05/23 09:08) hives simvastatin Allergy (Intermediate, Verified 12/05/23 09:08) rash hydrocodone [From VICODIN] Allergy (Mild, Verified 12/05/23 09:08) RASH amoxicillin [Amoxicillin] Allergy (Unknown, Verified 12/05/23 09:08) UNKNOWN HPI Comments Details: This is a 43-year-old female with a past medical history of type 2 diabetes, YAHIR, CVA, GERD, tobacco use, asthma, hyperlipidemia, hypertension and obesity presenting for diabetic management. She was last seen on 10/24/2023 by me. She developed gestational diabetes 14 years ago and then type II diabetes. She met with the religious educator. She continued to endorse noncompliance with NovoLog and had increased Lantus up to 70 units. They briefly discussed insulin pumps but we will have a follow up appointment to review this in further detail. Average sugar 245 on glucometer. She has not been able to get the sensors consistently so there is a lack of data. This was due to back ordering, but they are available again. A new prescription was sent to the pharmacy today. No hypoglycemia. Patient reports in the morning she drinks 3 coffees with cream, and the cream or has sugar in it so her blood sugars are going high, but she has not been administering NovoLog in the morning. Her 1st meal of the day is at 16:00, and this is when she uses the sliding scale. Hemoglobin a1c 11.5% 10/24/2023. POC 269. Current medication regimen: Jardiance 25 mg, Novolog sliding scale, Lantus 70 units nightly and Mounjaro 2.5 mg weekly. Patient endorses sulfuric belching with Mounjaro which is very unpleasant, and she would like an alternative. Metformin discontinued due to GI side effects. NovoLog sliding scale: <150 no insulin 151-230 2 units 231-280 4 units 281-330 6 units 331-380 8 units >380 units 10 units Hypoglycemia symptoms: none Hyperglycemia symptoms: polyuria, polydipsia, blurry when monitor reads high Eye exam: UTD Microvascular complications: neuropathy Macrovascular complications: CVA about 2 years ago Hypertension: Clonidine-prescribed for psychiatric dx. ROS: Constitutional: No unexplained weight loss, fever, chills, fatigue or night sweats. Eyes: No vision changes, blurry vision, double vision Respiratory: No shortness of breath Cardiovascular: No chest pain Neurologic: No headache, dizziness, syncope, unilateral weakness, ataxia Endocrine: see HPI Physical exam: Constitutional: Alert, in no distress. Eyes: Pupils are equal, round and reactive to light. Extraocular muscles intact. Neck: Supple, Full range of motion. No lymphadenopathy. No palpable thyroid masses. Respiratory: Clear to auscultation. Cardiovascular: S1 S2 regular. No murmurs. [facility] Medical History (Updated 07/16/23 @ 00:01 by Vel Gomez) Sleep apnea Hypersomnia Right sided weakness Burping Bloating Difficulty swallowing Screening for hypothyroidism Contusion of right knee Burn Wound cellulitis Neck pain IBS (irritable bowel syndrome) GERD (gastroesophageal reflux disease) Crohn's disease Seizure disorder Tobacco abuse Asthma Hypercholesterolemia Hypertension Obesity (BMI 30-39.9) Anxiety and depression Type 2 diabetes mellitus with hyperglycemia, with long-term current use of insulin Migraine Panic disorder PTSD (post-traumatic stress disorder) OCD (obsessive compulsive disorder) Surgical History H/O bilateral breast reduction surgery H/O arthroscopy History of ankle surgery Previous section Family History Father CVD (cerebrovascular disease) Diabetes Hypertension Mother Depression Chronic mental illness Maternal Grandmother Myocardial infarction CVD (cerebrovascular disease) Breast cancer Maternal Aunt Liver cancer Family/Other PTSD (post-traumatic stress disorder) Migraines Asthma Other Mental health disorder Social History Housing: Apartment Alcohol intake: former Patient Tobacco Use Status: Current everyday Tobacco user Tobacco use type: Cigarette Cigarettes Per Day: 2 e-Cigarette/Vaping Use: Never Used Second Hand Smoke Exposure: Yes Substance Use Type: Marijuana service: No Current occupational status: unemployed Current occupation: left handed Cognitive needs: No Hearing needs: No Vision needs: Yes (glasses) Physical Exam Vital Signs: Last Vital Signs Pulse 114 H 12/05/23 09:03 BP 128/76 12/05/23 09:03 BMI result Body Mass Index 36.7 Results Reviewed Results Reviewed: Laboratory Tests 01/07/23 04/15/23 04/16/23 09:55 09:20 08:36 BUN Creatinine Estim Creat Clear Calc Estimated GFR Random Glucose Hgb A1c (Clinic) 9.6 H 11.2 H AST ALT Alkaline Phosphatase Triglycerides Cholesterol LDL Cholesterol, Calc HDL Cholesterol TSH Free T4 Urine Creatinine 50.27 Urine Microalbumin 5.0 Microalb/Creat Ratio 9.9 04/16/23 07/15/23 08:37 14:41 BUN 10 Creatinine 0.73 Estim Creat Clear Calc 96.1 Estimated GFR > 60 Random Glucose 188 H Hgb A1c (Clinic) AST 23 ALT 19 Alkaline Phosphatase 91 Triglycerides 307 H Cholesterol 240 H LDL Cholesterol, Calc 132 H HDL Cholesterol 47 TSH 0.87 Free T4 0.79 Urine Creatinine Urine Microalbumin Microalb/Creat Ratio Assessment & Plan Assessment & Plan (1) Type 2 diabetes mellitus with hyperglycemia, with long-term current use of insulin: Comment: Dr. Anderson Code(s): E11.65 - Type 2 diabetes mellitus with hyperglycemia; Z79.4 - long term care pharmacist (curre nt) use of insulin Category: Medical Plan: In summary this is a 42 year old female with poorly controlled Type II DM with noncompliance with micro and macrovascular complications. She will follow up with the religious educator as plan to revisit insulin pump discussion. Continue Lantus 70 units nightly. Stop Mounjaro due to side effect and start Ozempic 0.25 mg weekly 1 week after last dose of Mounjaro. Continue Jardiance 25 mg daily. We adjusted her NovoLog plan as follows: Novolog: Administer within 5-10 minutes before a meal. <150 no insulin 151-230 4 units 231-280 6 units 281-330 8 units 331-380 10 units >380 units 12 units Before coffee with creamer that has sugar try 2 units of Novolog. If BG is still over 200 for the rest of the morning, increase Novolog to 4 units before coffees with creamer, but do not administer this if blood sugar is under 150. . Follow up in 4 weeks for type 2 diabetes. (2) Hypercholesterolemia: Code(s): E78.00 - Pure hypercholesterolemia, unspecified Category: Medical Plan: Continue Crestor. Recheck lipid profile with next labs. (3) Hypertension: Code(s): I10 - Essential (primary) hypertension Category: Medical Qualifiers: Hypertension type: essential hypertension Qualified Code(s): I10 - Essential (primary) hypertension Plan: Well controlled. We will discuss addition of low dose OKSANA or ARB at next appointment for renal protection with diabetes and HTN. Plan Follow up in 4 weeks for diabetes. Orders: Orders Hemoglobin A1c 01/23/24 E11.65 - Type 2 diabetes mellitus with hyperglycemia, E11.9 - Type 2 diabetes mellitus without complications, Z79.4 - long term care pharmacist (current) use of insulin Creatinine 01/23/24 E11.65 - Type 2 diabetes mellitus with hyperglycemia, Z79.4 - residential (current) use of insulin Medications: New semaglutide (Ozempic) for 4 weeks 0.25 mg (0.368 mL) subcut QWEEK 3 mL 0RF Changed From insulin glargine (Lantus Solostar U-100 Insulin) 40 units (0.4 mL) subcut QPM 15 mL 3RF E11.65 - Type 2 diabetes mellitus with hyperglycemia, Z79.4 - residential (current) use of insulin To insulin glargine (Lantus Solostar U-100 Insulin) 70 units (0.7 mL) subcut .qhs 15 mL 5RF E11.65 - Type 2 diabetes mellitus with hyperglycemia, Z79.4 - residential (current) use of insulin Refilled 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 sensor (FreeStyle Clare 3 Sensor device) apply new sensor every 14 days as directed 2 ea 11RF Discontinued tirzepatide (Mounjaro) for 4 weeks Discontinued Reason: Doctor's Order 2.5 mg (0.5 mL) subcut QWEEK 2 mL 0RF Patient Instructions: Start Ozempic 0.25 mg once weekly a week after last dose of Mounjaro Novolog: Administer within 5-10 minutes before a meal. <150 no insulin 151-230 4 units 231-280 6 units 281-330 8 units 331-380 10 units >380 units 12 units Before coffee with creamer that has sugar try 2 units of Novolog. If BG is still over 200 for the rest of the morning, increase Novolog to 4 units before coffee s with creamer. Coding Level of Care Code Est Pt Level 4 (64815) Complex EM visit Add On G2211 Diagnoses Type 2 diabetes mellitus with hyperglycemia, with long-term current use of insulin E11.65; Z79.4 Hypercholesterolemia E78.00 Essential hypertension I10 Hypertension type: essential hypertension
[2023-12-05 09:03] VITALS: BP 128/76; PULSE 114; BMI 36.7
[2023-12-05 09:18] LABS: Glucose, Whole Blood 269 mg/dL (60-115)
== END 2023-12-05 09:36 | disposition home or self-care (01) ==
PROVIDERS: PCP Internal Medicine; Visit Provider Physician Assistant Medical
DX: E11.65 Type 2 diabetes mellitus with hyperglycemia (principal); Z79.4 Long term (current) use of insulin; E78.00 Pure hypercholesterolemia, unspecified; I10 Essential (primary) hypertension

== ENCOUNTER → 2023-12-05 08:59 | Outpatient (BNVA) | payer MEDICARE, MEDICAID, SELFPAY | PROVIDERS: PCP Internal Medicine; Visit Provider Physician Assistant Medical | DX: E11.65 Type 2 diabetes mellitus with hyperglycemia (principal); I10 Essential (primary) hypertension; E78.00 Pure hypercholesterolemia, unspecified; Z79.4 Long term (current) use of insulin | CPT/HCPCS: 82947; 99212 ==

== ENCOUNTER 2024-01-02 08:58 | Outpatient (AMB) | payer MEDICARE, MEDICAID, SELFPAY ==
--- NOTE | 2024-01-02 08:59 | A.OFFVIS_ITS ---
Vital Signs 01/02/24 09:03 Height 5 ft 2 in Weight 201 lb 15.095 oz BMI 36.9 BP 134/84 Blood Pressure Location Lt brachial Position Sitting Pulse 102 H Pulse Source Pulse Oximeter Intake Visit Reasons: Type II DM Intake Note: Patient present today to follow up on Type 2 Diabetes Mellitus. Last Diabetic Eye exam: December 30, 2023 Last Podiatry Visit: Does not see a Mapping Pilot Random Glucose: 294 mg/dl HgA1C: 11.5% 10/24/2023 Supervisor Customer Records Division Required: No Accompanied by: Self / Same As Patient Allergies morphine [MORPHINE] Allergy (Intermediate, Verified 01/02/24 09:04) NAUSEA, rash oxycodone [From PERCOCET] Allergy (Intermediate, Verified 01/02/24 09:04) ITCHY, rash penicillin V Allergy (Intermediate, Verified 01/02/24 09:04) hives simvastatin Allergy (Intermediate, Verified 01/02/24 09:04) rash hydrocodone [From VICODIN] Allergy (Mild, Verified 01/02/24 09:04) RASH amoxicillin [Amoxicillin] Allergy (Unknown, Verified 01/02/24 09:04) UNKNOWN HPI Comments Details: This is a 43-year-old female with a past medical history of type 2 diabetes, YAHIR, CVA, GERD, tobacco use, asthma, hyperlipidemia, hypertension and obesity presenting for diabetic management. She developed gestational diabetes 14 years ago and then type II diabetes. Patient says her father has type 1 diabetes. She met with the paraeducator. They have a follow up on 01/13/2024. Patient says she is doing better with administration of NovoLog and Lantus. Reviewed CGM data CGM active 95% Average glucose 239 GMI 9% Glucose variability 28.4% Glucose greater than 250 37% Glucose 181-250 42% Target range 21% 0% hypoglycemia Patient has postprandial spikes in blood sugar and hyperglycemia throughout the 24 hour period. Hemoglobin a1c 11.5% 10/24/2023. Current medication regimen: Jardiance 25 mg, Novolog sliding scale, Lantus 70 units nightly and Ozempic to 0.5 mg weekly. Metformin discontinued due to GI side effects. Hypoglycemia symptoms: none Hyperglycemia symptoms: polyuria, polydipsia, blurry vision Eye exam: UTD Microvascular complications: neuropathy Macrovascular complications: CVA about 2 years ago ROS: Constitutional: No unexplained weight loss, fever, chills, fatigue or night sweats. Eyes: No vision changes, blurry vision, double vision Respiratory: No shortness of breath Cardiovascular: No chest pain Neurologic: No headache, dizziness, syncope, unilateral weakness, ataxia Endocrine: see HPI Physical exam: Constitutional: Alert, in no distress. Eyes: Pupils are equal, round and reactive to light. Extraocular muscles intact. Neck: Supple, Full range of motion. No lymphadenopathy. No palpable thyroid masses. Respiratory: Clear to auscultation. Cardiovascular: S1 S2 regular. No murmurs. [facility] Medical History (Updated 01/02/24 @ 09:36 by VIRI Murphy) Diabetes mellitus with hyperglycemia Sleep apnea Hypersomnia Right sided weakness [place] Bloating Difficulty swallowing Screening for hypothyroidism Contusion of right knee Burn Wound cellulitis Neck pain IBS (irritable bowel syndrome) GERD (gastroesophageal reflux disease) Crohn's disease Seizure disorder Tobacco abuse Asthma Hypercholesterolemia Hypertension Obesity (BMI 30-39.9) Anxiety and depression Type 2 diabetes mellitus with hyperglycemia, with long-term current use of insulin Migraine Panic disorder PTSD (post-traumatic stress disorder) OCD (obsessive compulsive disorder) Surgical History H/O bilateral breast reduction surgery H/O arthroscopy History of ankle surgery Previous section Family History Father CVD (cerebrovascular disease) Diabetes Hypertension Mother Depression Chronic mental illness Maternal Grandmother Myocardial infarction CVD (cerebrovascular disease) Breast cancer Maternal Aunt Liver cancer Family/Other PTSD (post-traumatic stress disorder) Migraines Asthma Other Mental health disorder Social History Housing: Apartment Alcohol intake: former Patient Tobacco Use Status: Current everyday Tobacco user Tobacco use type: Cigarette Cigarettes Per Day: 2 e-Cigarette/Vaping Use: Never Used Second Hand Smoke Exposure: Yes Substance Use Type: Marijuana service: No Current occupational status: unemployed Current occupation: left handed Cognitive needs: No Hearing needs: No Vision needs: Yes (glasses) Physical Exam Vital Signs: Last Vital Signs Pulse 102 H 01/02/24 09:03 BP 134/84 01/02/24 09:03 BMI result Body Mass Index 36.9 Results Reviewed Results Reviewed: Laboratory Last Values Glucose (Clinic) 294 mg/dL (60-115) H 01/02/24 09:09 Laboratory Tests 01/07/23 04/15/23 04/16/23 09:55 09:20 08:36 BUN Creatinine Estim Creat Clear Calc Estimated GFR Random Glucose Hgb A1c (Clinic) 9.6 H 11.2 H AST ALT Alkaline Phosphatase Triglycerides Cholesterol LDL Cholesterol, Calc HDL Cholesterol TSH Free T4 Urine Creatinine 50.27 Urine Microalbumin 5.0 Microalb/Creat Ratio 9.9 04/16/23 07/15/23 08:37 14:41 BUN 10 Creatinine 0.73 Estim Creat Clear Calc 96.1 Estimated GFR > 60 Random Glucose 188 H Hgb A1c (Clinic) AST 23 ALT 19 Alkaline Phosphatase 91 Triglycerides 307 H Cholesterol 240 H LDL Cholesterol, Calc 132 H HDL Cholesterol 47 TSH 0.87 Free T4 0.79 Urine Creatinine Urine Microalbumin Microalb/Creat Ratio Assessment & Plan Assessment & Plan (1) Type 2 diabetes mellitus with hyperglycemia, with long-term current use of insulin: Comment: Dr. Anderson Code(s): E11.65 - Type 2 diabetes mellitus with hyperglycemia; Z79.4 - [facility] (current) use of insulin Category: Medical Plan: In summary this is a 42 year old female with poorly controlled Type II DM with improve compliance with micro and macrovascular complications. She will follow up with the paraeducator as planned 01/13/2024. Continue Lantus 70 units nightly. Increase Ozempic to 0.5 mg weekly. Continue Jardiance 25 mg daily. We adjusted her NovoLog sliding scale as follows: Continue 4 units before coffee with creamer. If blood sugar is under 150 do not take Novolog. <150 no insulin 150-199 6 units 200-250 8 units 251-300 10 units 301-350 12 units 351-400 14 units >400 16 units Follow up in 4 weeks for type 2 diabetes. (2) Hypercholesterolemia: Code(s): E78.00 - Pure hypercholesterolemia, unspecified Category: Medical Plan: Continue Crestor. Recheck lipid profile with next labs. Plan Follow up in 4 weeks for diabetes. Orders: Orders C Peptide Today E11.65 - Type 2 diabetes mellitus with hyperglycemia Islet Cell Antibody Scrn/Titer Today E11.65 - Type 2 diabetes mellitus with hyperglycemia Glutamic acid decarboxylase Ab Today E11.65 - Type 2 diabetes mellitus with hyperglycemia Medications: New semaglutide (Ozempic) 0.5 mg (0.736 mL) subcut QWEEK 3 mL 0RF Discontinued semaglutide (Ozempic) for 4 weeks Discontinued Reason: Doctor's Order 0.25 mg (0.368 mL) subcut QWEEK 3 mL 0RF Patient Instructions: Continue 4 units before coffee with creamer. If blood sugar is under 150 do not take Novolog. <150 no insulin 150-199 6 units 200-250 8 units 251-300 10 units 301-350 12 units 351-400 14 units >400 16 units Increase Ozempic to 0.5 mg weekly Continue Lantus 70 units nightly Continue Jardiance 25 mg daily Please have lab work completed around 01/23/24. Coding Level of Care Code Est Pt Level 4 (09932) Complex EM visit Add On G2211 Diagnoses Type 2 diabetes mellitus with hyperglycemia, with long-term current use of insulin E11.65; Z79.4 Hypercholesterolemia E78.00
[2024-01-02 09:03] VITALS: BP 134/84; PULSE 102; BMI 36.9
[2024-01-02 09:13] LABS: Glucose, Whole Blood 294 mg/dL (60-115)
== END 2024-01-02 09:39 | disposition home or self-care (01) ==
PROVIDERS: PCP Internal Medicine; Visit Provider Physician Assistant Medical
DX: E11.65 Type 2 diabetes mellitus with hyperglycemia (principal); Z79.4 Long term (current) use of insulin; E78.00 Pure hypercholesterolemia, unspecified

== ENCOUNTER → 2024-01-02 08:58 | Outpatient (BNVA) | payer MEDICARE, MEDICAID, SELFPAY | PROVIDERS: PCP Internal Medicine; Visit Provider Physician Assistant Medical | DX: E11.65 Type 2 diabetes mellitus with hyperglycemia (principal); E78.00 Pure hypercholesterolemia, unspecified; Z79.4 Long term (current) use of insulin | CPT/HCPCS: 82947; 99212 ==

== ENCOUNTER 2024-01-06 15:03 | Emergency (ER) | payer MEDICARE, MEDICAID, SELFPAY ==
--- NOTE | ~2024-01-06 | CT_ITS ---
EXAMINATION: CT HEAD WITHOUT CONTRAST CLINICAL INFORMATION: Headache. Status post fall. COMPARISON: CTA head dated 10/22/2021. TECHNIQUE: Contiguous axial imaging was performed from the skull base to vertex without intravenous administration of contrast. This CT examination was performed using dose optimization techniques as appropriate, variously including the following: *Automated exposure control *Adjustment of mA and/or kV according to patient size (this includes techniques or standardized protocols for targeted exams where dose is matched to indication/reason for exam; i.e. extremities or head) *Use of iterative reconstruction technique DLP: 1033 mGy-cm FINDINGS: There is no acute intracranial hemorrhage. There is no evidence of acute/subacute cerebral or cerebellar infarction. There is no mass effect. No midline shift. No extra-axial fluid collection. The ventricles are normal in size. The orbits are symmetric and within normal limits. The calvarium is intact. The paranasal sinuses and mastoid air cells are clear. CT/CT head/brain wo IV con IMPRESSION: No acute intracranial pathology. Electronically signed by: Marcos Zelaya DO 01/06/2024 08:51 PM EST
--- NOTE | ~2024-01-06 | CT_ITS ---
EXAMINATION: CT CERVICAL SPINE WITHOUT CONTRAST CLINICAL INFORMATION: Neck pain status post fall. COMPARISON: MRI cervical spine dated September 16, 2021. TECHNIQUE: Noncontrast computed tomography of the cervical spine was performed. This CT examination was performed using dose optimization techniques as appropriate, variously including the following: *Automated exposure control *Adjustment of mA and/or kV according to patient size (this includes techniques or standardized protocols for targeted exams where dose is matched to indication/reason for exam; i.e. extremities or head) *Use of iterative reconstruction technique DLP: 402.09 mGy-cm FINDINGS: There is straightening of the cervical lordosis. The vertebral bodies are anatomically aligned. Posterior elements are anatomically aligned. The atlantooccipital articulations are intact. The C1-C2 relationship is anatomic. The dens is intact. The vertebral bodies demonstrate preserved stature. Intervertebral disc space heights are preserved. The prevertebral soft tissue is normal in appearance. No fracture. The lung apices are clear. The thyroid gland is normal in appearance. CT/CT cervical spine wo IV con IMPRESSION: No acute osseous cervical spine abnormality. Fleischner guidelines were followed. Electronically signed by: Marcos Zelaya DO 01/06/2024 08:56 PM EST
[2024-01-06 15:33] VITALS: BP 149/89; PULSE 112; RESP 18; TEMP 37.1; O2SAT 96; BMI 37.7
--- NOTE | 2024-01-06 15:34 | ED.HEATRA ---
HPI - Head Injury General Chief complaint: Fall Stated complaint: Fall - hit head, neck pain Time Seen by Provider: 01/06/24 21:46 Source: patient Mode of arrival: ambulatory Limitations: no limitations History of Present Illness ED Provider: josh TYLER Narrative: Patient's history of migraine headache depression anxiety multiple medications apparently she fell on Friday while going to bathroom to have bowel movements does not remember exactly what happened patient has been taking Klonopin and Seroquel says after that she been sleeping all day forgetful but she remember part of it no seizures patient has had CT scan of the head and C-spine was negative Related Data Home Medications ?Medication ?Instructions ?Recorded ?Confirmed venlafaxine 150 mg 300 mg PO DAILY 06/01/20 10/24/23 capsule,extended release 24 hr (Effexor XR) clonidine HCl 0.2 mg tablet 0.2 mg PO DAILY 08/07/21 10/24/23 quetiapine 100 mg tablet 1 tab PO BEDTIME 09/12/21 10/24/23 quetiapine 400 mg tablet (Seroquel) 1 tab PO BEDTIME 09/12/21 10/24/23 trazodone 50 mg tablet 2 tab PO BEDTIME 09/12/21 10/24/23 clonazepam 1 mg tablet 1 mg PO TID 12/24/21 10/24/23 pyimulwxxg-nnhmswjwacuir-vqifrdmn 1 tab PO DAILY PRN 12/27/22 10/24/23 50 mg-325 mg-40 mg tablet Previous Rx's ?Medication ?Instructions ?Recorded aspirin 81 mg tablet,delayed 81 mg PO DAILY #30 tabs 09/27/21 release (Adult Low Dose Aspirin) docusate sodium 100 mg capsule 100 mg PO DAILY #30 caps 09/06/22 mupirocin 2 % topical ointment 1 appl topical BID 7 days #22 grams 01/07/23 gabapentin 100 mg capsule 400 mg (4 x 100 mg) PO BID #120 04/15/23 caps meloxicam 7.5 mg tablet 7.5 mg PO DAILY #90 tabs 05/05/23 empagliflozin 25 mg tablet 25 mg PO DAILY #90 tabs 07/01/23 (Jardiance) ondansetron 4 mg disintegrating 4 mg PO Q8H PRN nausea and 07/15/23 tablet vomiting #20 tabs omeprazole 20 mg capsule,delayed 20 mg PO DAILY #90 caps 08/04/23 release glucose 4 gram chewable tablet 16 g (4 x 4 gram) PO Q15M PRN 10/24/23 (Dex4 Glucose Quick Dissolve) hypoglycemia #30 tabs rosuvastatin 10 mg tablet 10 mg PO .every other night 90 10/24/23 days #45 tabs insulin aspart U-100 100 unit/mL 1 sliding scale dose subcut 11/17/23 (3 mL) subcutaneous pen (Novolog USEASDIRECTD #15 mL FlexPen U-100 Insulin aspart) pen needle, diabetic 31 gauge x #200 ea 11/17/23 5/16 (BD Ultra-Fine Short Pen Needle) 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 sensor (FreeStyle #2 ea 12/05/23 Clare 3 Sensor device) insulin glargine 100 unit/mL (3 70 unit (0.7 mL) subcut .qhs #15 mL 12/05/23 mL) subcutaneous pen (Lantus Solostar U-100 Insulin) 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 meter,continuous #1 ea 12/18/23 (FreeStyle Clare 3 [place]) semaglutide 0.25 mg or 0.5 mg (2 0.5 mg (0.736 mL) subcut QWEEK #3 01/02/24 mg/3 mL) subcutaneous pen injector mL (Ozempic) Allergies Allergy/AdvReac Type Severity Reaction Status Date / Time morphine [MORPHINE] Allergy Intermediate NAUSEA, Verified 01/06/24 15:35 rash oxycodone [From PERCOCET] Allergy Intermediate ITCHY, rash Verified 01/06/24 15:35 penicillin V Allergy Intermediate hives Verified 01/06/24 15:35 simvastatin Allergy Intermediate rash Verified 01/06/24 15:35 hydrocodone [From VICODIN] Allergy Mild RASH Verified 01/06/24 15:35 amoxicillin [Amoxicillin] Allergy Unknown UNKNOWN Verified 01/06/24 15:35 Review of Systems Review of Systems: Yes all other systems are reviewed and are negative PMFSH Past Medical History Medical History Diabetes mellitus with hyperglycemia Sleep apnea Hypersomnia Right sided weakness Burping Bloating Difficulty swallowing Screening for hypothyroidism Contusion of right knee Burn Wound cellulitis Neck pain IBS (irritable bowel syndrome) GERD (gastroesophageal reflux disease) Crohn's disease Seizure disorder Tobacco abuse Asthma Hypercholesterolemia Hypertension Obesity (BMI 30-39.9) Anxiety and depression Type 2 diabetes mellitus with hyperglycemia, with long-term current use of insulin Migraine Panic disorder PTSD (post-traumatic stress disorder) OCD (obsessive compulsive disorder) Surgical History H/O bilateral breast reduction surgery H/O arthroscopy History of ankle surgery Previous section Family History Family History Father CVD (cerebrovascular disease) Diabetes Hypertension Mother Depression Chronic mental illness Maternal Grandmother Myocardial infarction CVD (cerebrovascular disease) Breast cancer Maternal Aunt Liver cancer Family/Other PTSD (post-traumatic stress disorder) Migraines Asthma Other Mental health disorder Social History Social History Housing: Apartment Alcohol intake: former Patient Tobacco Use Status: Current everyday Tobacco user Tobacco use type: Cigarette Cigarettes Per Day: 2 e-Cigarette/Vaping Use: Never Used Second Hand Smoke Exposure: Yes Substance Use Type: Marijuana Advance Directives: No Advance Directives Information Provided: Yes Do you have a plan to hurt others: No Plan service: No Current occupational status: unemployed Current occupation: left handed Cognitive needs: No Hearing needs: No Vision needs: Yes (glasses) Physical Exam Vital Signs: Vital Signs: Last Vital Signs Temp 98.7 F 01/06/24 15:33 Pulse 112 H 01/06/24 15:33 Resp 18 01/06/24 15:33 BP 149/89 H 01/06/24 15:33 Pulse Ox 96 01/06/24 15:33 O2 Del Method Room Air 01/06/24 15:33 BMI result Body Mass Index 37.7 Appearance: Alert. Oriented X3. No acute distress. Eyes: PERRLA, No Nystagmus photosensitive ENT: Pharynx normal. Oral Mucosa moist Neck: Normal inspection. Neck supple. No midline tenderness tenderness in bilateral her trapezius area patient ambulatory in steady gait CVS: Normal heart rate and rhythm. Pulses normal. Respiratory: No respiratory distress. Equal air entry bilateral, no wheezing/rales/rhonchi Abdomen: Soft and nontender. Bowel sounds are present, no mass palpable, no CVA tenderness Skin: Skin warm and dry. Normal skin color. Normal skin turgor. Extremities: No lower extremity edema. No calf tenderness Neuro: Oriented X 3. No motor deficit. No sensory deficit.No cerebellar signs , cranial nerves II-XII intact Course Course Course Narrative: This is a Rapid Medical Examination (RME) performed by Dary Ruiz PA-C in triage. Full HPI, ROS, assessment and treatment plan per primary provider in the Main ED. 43 yo female with history of CVA, migraines, DM2, HTN, HLD, GERD who presents to the ER for evaluation of headache and neck pain after she fell in the bathroom and hit her head on the toilet 2 days ago. unknown if she lost consciouness, she doesn't remember. she has been having 8/10 headache, memory loss, nausea, and photophobia. Plan: CT head cervical spine Medical Decision Making Medical Decision Making MDM Narrative: Patient's symptoms likely from somatization /anxiety/depression blood sugar is only 150 CT scan of the head and C-spine negative for acute will give patient has Fioricet for headache advised to follow up with your PCP Differential Diagnosis Differential Diagnoses: The differential diagnosis associated with the presentation includes Anxiety/depression/closed head injury/somatization Independent Interpretation I performed an independent interpretation of an: CT Scan Radiology Impression Discussion of test interpretation with radiology: I have reviewed the radiologist's reading. Radiologist Impression: No acute Discharge Plan Discharge Clinical Impression: Minor closed head injury, Migraine Patient Disposition: Home, Self-Care Instructions: Migraine Headache (ED), Head Injury (ED) Additional Instructions: Drink plenty of fluids Continue take medication for migraine Follow up with your PCP Your memory of the events will come back slowly Prescriptions: No Action meloxicam 7.5 mg tablet 7.5 mg PO DAILY Qty: 90 1RF Jardiance 25 mg tablet 25 mg PO DAILY Qty: 90 3RF omeprazole 20 mg capsule,delayed release(DR/EC) 20 mg PO DAILY Qty: 90 2RF insulin aspart U-100 [Novolog FlexPen U-100 Insulin] 100 unit/mL (3 mL) insulin pen 1 sliding scale dose subcut USEASDIRECTD Qty: 15 11RF Rx Instructions: according to sliding scale subcutaneously 3 times a day; sliding scale given 151-230 2 units, 231-280 4 units, 281-330 6 units, 331-380 8 units and > 380 10 units (DME) pen needle, diabetic [BD Ultra-Fine Short Pen Needle] 31 gauge x 5/16 needle See Rx Instructions .ROUTE .MEDSUPPLY Qty: 200 11RF Rx Instructions: As directed daily with insulin pen four times daily. (DME) FreeStyle Clare 3 [place] [facility] See Rx Instructions .ROUTE .COMPLEX Qty: 1 0RF Dose Instruction: USE DIRECTED Rx Instructions: USE DIRECTED trazodone 50 mg tablet 2 tab PO BEDTIME quetiapine [Seroquel] 400 mg tablet 1 tab PO BEDTIME quetiapine 100 mg tablet 1 tab PO BEDTIME docusate sodium 100 mg capsule 100 mg PO DAILY Qty: 30 0RF ondansetron 4 mg tablet,disintegrating 4 mg PO Q8H PRN (Reason: nausea and vomiting) Qty: 20 0RF clonazepam 1 mg tablet 1 mg PO TID Rx Instructions: 2 TABS in the AM and 1 Tab in the PM venlafaxine [Effexor XR] 150 mg capsule,extended release 24hr 300 mg PO DAILY aspirin [Adult Low Dose Aspirin] 81 mg tablet,delayed release (DR/EC) 81 mg PO DAILY Qty: 30 0RF mupirocin 2 % ointment 1 appl topical BID 7 Days Qty: 22 0RF clonidine HCl 0.2 mg tablet 0.2 mg PO DAILY gabapentin 100 mg capsule 400 mg PO BID Qty: 120 12RF qmzdeqftzm-epzzrkccaawpj-rrff 50-325-40 mg tablet 1 tab PO DAILY PRN rosuvastatin 10 mg tablet 10 mg PO .every other night 90 Days Qty: 45 0RF glucose [Dex4 Glucose Quick Dissolve] 4 gram tablet,chewable 16 g PO Q15M PRN (Reason: hypoglycemia) Qty: 30 3RF Rx Instructions: until symptoms of low blood sugar are controlled (DME) FreeStyle Clare 3 Sensor Device See Rx Instructions .ROUTE .MEDSUPPLY Qty: 2 11RF Rx Instructions: apply new sensor every 14 days as directed insulin glargine [Lantus Solostar U-100 Insulin] 100 unit/mL (3 mL) insulin pen 70 unit subcut .qhs Qty: 15 5RF Ozempic 0.25 mg or 0.5 mg (2 mg/3 mL) pen injector 0.5 mg subcut QWEEK Qty: 3 0RF Print Language: Upper Sorbian
[2024-01-06 21:59] LABS: Glucose, Whole Blood 115 mg/dL (60-115)
[2024-01-06 22:04] VITALS: BP 158/69; PULSE 91; RESP 14; TEMP 37.3; O2SAT 96
[2024-01-06] MEDS: Butalb/Acetamin/Caff 50/325/40 TABLET 1 TAB PO (22:07)
[2024-01-06 22:09] VITALS: BP 158/69; PULSE 91; RESP 14; TEMP 37.3; O2SAT 96
== END 2024-01-06 22:10 | disposition home or self-care (01) ==
PROVIDERS: Emergency Provider Internal Medicine; PCP Internal Medicine
DX: S09.90XA Unspecified injury of head, initial encounter (principal); W18.11XA Fall from or off toilet without subsequent striking against object, initial encounter; G43.909 Migraine, unspecified, not intractable, without status migrainosus; Y93.89 Activity, other specified; Y92.012 Bathroom of single-family (private) house as the place of occurrence of the external cause; Y99.9 Unspecified external cause status; E11.9 Type 2 diabetes mellitus without complications; I10 Essential (primary) hypertension; E78.5 Hyperlipidemia, unspecified; F17.210 Nicotine dependence, cigarettes, uncomplicated; Z79.4 Long term (current) use of insulin; Z79.82 Long term (current) use of aspirin; Z79.02 Long term (current) use of antithrombotics/antiplatelets; Z79.899 Other long term (current) drug therapy
CPT/HCPCS: 70450; 72125; 82947; 99283; 99284

== ENCOUNTER 2024-03-23 11:11 | Outpatient (REF) | payer MEDICARE, MEDICAID, SELFPAY ==
[2024-03-23 12:12] LABS: Estimated Average Glucose 192 mg/dL; Hemoglobin A1C 230.4245 umol/L; Hemoglobin A1c % 8.3 % (<6.0); Total Hemoglobin (HGBA1C) 3434.9037 umol/L
[2024-03-23 12:24] LABS: Alanine Aminotransferase 12 U/L (0-31); Aspartate Amino Transferase 26 U/L (5-31); Cholesterol 191 mg/dL (<200); Estimated Glomerular Filt Rate > 60; HDL Cholesterol 44 mg/dL (>40); LDL Cholesterol Calculated 92 mg/dL (<100); Triglycerides 275 mg/dL (<150)
== END 2024-03-23 11:12 | disposition home or self-care (01) ==
LOC: HO.10HDL 11:11
PROVIDERS: Visit Provider Physician Assistant Medical
DX: E11.65 Type 2 diabetes mellitus with hyperglycemia (principal); E78.5 Hyperlipidemia, unspecified; E78.00 Pure hypercholesterolemia, unspecified; Z79.4 Long term (current) use of insulin
CPT/HCPCS: 36415; 80061; 82565; 82947; 83036; 84450; 84460; 99212

== ENCOUNTER 2024-03-23 11:18 | Outpatient (AMB) | payer MEDICARE, MEDICAID, SELFPAY ==
--- NOTE | 2024-03-23 11:23 | MHC.OFFVIS ---
Vital Signs 03/23/24 11:26 03/23/24 11:54 Height 5 ft 1 in Weight 197 lb 15.602 oz BMI 37.4 BP 112/66 Blood Pressure Location Lt radial Position Sitting Pulse 107 H 96 Pulse Source Pulse Oximeter Pulse Oximetry (%) 97 Oxygen Delivery Method Room Air Intake Visit Reasons: DM Intake Note: Patient present today to follow up on Type 2 Diabetes Mellitus. Last Diabetic Eye exam: Dec 30, 2023 Last Podiatry Visit: Does not see a Railroad Passenger Agent Random Glucose: 139 mg/dl HgA1C: 8.4% 03/23/2024 Tanker Driver Required: No Accompanied by: Self / Same As Patient Allergies morphine [MORPHINE] Allergy (Intermediate, Verified 03/23/24 11:33) NAUSEA, rash oxycodone [From PERCOCET] Allergy (Intermediate, Verified 03/23/24 11:33) ITCHY, rash penicillin V Allergy (Intermediate, Verified 03/23/24 11:33) hives simvastatin Allergy (Intermediate, Verified 03/23/24 11:33) rash hydrocodone [From VICODIN] Allergy (Mild, Verified 03/23/24 11:33) RASH amoxicillin [Amoxicillin] Allergy (Unknown, Verified 03/23/24 11:33) UNKNOWN HPI Comments Details: This is a 43-year-old female with a past medical history of type 2 diabetes, YAHIR, CVA, GERD, tobacco use, asthma, hyperlipidemia, hypertension and obesity presenting for diabetic management. She developed gestational diabetes 14 years ago and then type II diabetes. Patient says her father has type 1 diabetes. She had her blood work done this morning to screen for type 1 diabetes. She met with the certified adaptive physical educator. She has a follow up scheduled. She had to reschedule the appointment in December. Reviewed EBIQUOUS 3 download CGM active 5% (started sensor yesterday) Target range 59% High 16% Very high 25% 0% hypoglycemia Average glucose 199 Glucose variability 44.2% Hemoglobin a1c 8.4% today 03/23/24 down from 11.5% 10/24/2023. Current medication regimen: Jardiance 25 mg, Novolog sliding scale, Lantus 70 units nightly and Ozempic to 0.5 mg weekly. Metformin discontinued due to GI side effects. Patient reports a longstanding history of acid reflux. She says this is a little bit worse with Ozempic, but she has no symptoms when she takes her omeprazole. Her pharmacy would not refill the 1 that was sent by her primary care, so I sent this through to the pharmacy as a courtesy today. Hypoglycemia symptoms: none Hyperglycemia symptoms: Polyuria and polydipsia Eye exam: UTD Microvascular complications: neuropathy Macrovascular complications: Prior CVA ROS: Constitutional: No unexplained weight loss, fever, chills, fatigue or night sweats. Eyes: No vision changes, blurry vision, double vision Respiratory: No shortness of breath Cardiovascular: No chest pain Neurologic: No headache, dizziness, syncope, unilateral weakness, ataxia Endocrine: see HPI Physical exam: Constitutional: Alert, in no distress. Eyes: Pupils are equal, round and reactive to light. Extraocular muscles intact. Neck: Supple, Full range of motion. No lymphadenopathy. No palpable thyroid masses. Respiratory: Clear to auscultation. Cardiovascular: S1 S2 regular. No murmurs. [facility] Medical History Diabetes mellitus with hyperglycemia Sleep apnea Hypersomnia Right sided weakness [place] Bloating Difficulty swallowing Screening for hypothyroidism Contusion of right knee Burn Wound cellulitis Neck pain IBS (irritable bowel syndrome) GERD (gastroesophageal reflux disease) Crohn's disease Seizure disorder Tobacco abuse Asthma Hypercholesterolemia Hypertension Obesity (BMI 30-39.9) Anxiety and depression Type 2 diabetes mellitus with hyperglycemia, with long-term current use of insulin Migraine Panic disorder PTSD (post-traumatic stress disorder) OCD (obsessive compulsive disorder) Surgical History H/O bilateral breast reduction surgery H/O arthroscopy History of ankle surgery Previous section Family History Father CVD (cerebrovascular disease) Diabetes Hypertension Mother Depression Chronic mental illness Maternal Grandmother Myocardial infarction CVD (cerebrovascular disease) Breast cancer Maternal Aunt Liver cancer Family/Other PTSD (post-traumatic stress disorder) Migraines Asthma Other Mental health disorder Social History Housing: Apartment Alcohol intake: former Patient Tobacco Use Status: Current everyday Tobacco user Tobacco use type: Cigarette Cigarettes Per Day: 2 e-Cigarette/Vaping Use: Never Used Second Hand Smoke Exposure: Yes Substance Use Type: Marijuana service: No Current occupational status: unemployed Current occupation: left handed Cognitive needs: No Hearing needs: No Vision needs: Yes (glasses) Physical Exam Vital Signs: Last Vital Signs Pulse 107 H 03/23/24 11:26 BP 112/66 03/23/24 11:26 Pulse Ox 97 03/23/24 11:26 Oxygen Delivery Method Room Air 03/23/24 11:26 BMI result Body Mass Index 37.4 Results AMB Hemoglobin A1c AMB Hemoglobin A1c 8.4 % Last Edit by NASRIN Watson on 03/23/24 11:50 Results Reviewed Results Reviewed: Laboratory Last Values Glucose (Clinic) 139 mg/dL (60-115) H 03/23/24 11:38 Laboratory Tests 01/07/23 04/15/23 04/16/23 09:55 09:20 08:36 BUN Creatinine Estim Creat Clear Calc Estimated GFR Random Glucose Hgb A1c (Clinic) 9.6 H 11.2 H AST ALT Alkaline Phosphatase Triglycerides Cholesterol LDL Cholesterol, Calc HDL Cholesterol TSH Free T4 Urine Creatinine 50.27 Urine Microalbumin 5.0 Microalb/Creat Ratio 9.9 04/16/23 07/15/23 08:37 14:41 BUN 10 Creatinine 0.73 Estim Creat Clear Calc 96.1 Estimated GFR > 60 Random Glucose 188 H Hgb A1c (Clinic) AST 23 ALT 19 Alkaline Phosphatase 91 Triglycerides 307 H Cholesterol 240 H LDL Cholesterol, Calc 132 H HDL Cholesterol 47 TSH 0.87 Free T4 0.79 Urine Creatinine Urine Microalbumin Microalb/Creat Ratio Assessment & Plan Assessment & Plan (1) Type 2 diabetes mellitus with hyperglycemia, with long-term current use of insulin: Comment: Dr. Anderson Code(s): E11.65 - Type 2 diabetes mellitus with hyperglycemia; Z79.4 - detention (current) use of insulin Category: Medical Plan: In summary this is a 42 year old female with poorly controlled Type II DM with improve compliance with micro and macrovascular complications. She will follow up with the certified adaptive physical educator as planned. Continue Lantus 70 units nightly. Increase Ozempic to 1 mg weekly. Continue Jardiance 25 mg daily. Continue NovoLog: Continue 4 units before coffee with creamer. If blood sugar is under 150 do not take Novolog. <150 no insulin 150-199 6 units 200-250 8 units 251-300 10 units 301-350 12 units 351-400 14 units >400 16 units If you experience low blood sugar, treat this by eating a chewable fruit candy like skittles or jelly beans (about 8 pieces), 4 ounces (1/2 cup) of fruit juice (not diet), 1 tablespoon of honey or 4 glucose tablets. If your blood sugar is under 50, take double the amount of one of the above. Recheck your blood sugar in 15 minutes. Follow up in 4 weeks for type 2 diabetes. (2) Hypercholesterolemia: Code(s): E78.00 - Pure hypercholesterolemia, unspecified Category: Medical Plan: Continue Crestor. She had her blood work drawn today. Plan Follow up in 4 weeks for diabetes. Orders: Orders AMB Hemoglobin A1c Today E11.65 - Type 2 diabetes mellitus with hyperglycemia, Z79.4 - buttermaker helper (current) use of insulin Medications: New semaglutide (Ozempic) 1 mg (0.75 mL) subcut QWEEK 3 mL 3RF Changed From omeprazole 20 mg PO DAILY 90 caps 2RF K21.9 - Gastro-esophageal reflux disease without esophagitis To omeprazole 20 mg PO BID 60 caps 1RF K21.9 - Gastro-esophageal reflux disease without esophagitis Discontinued semaglutide (Ozempic) Discontinued Reason: Change Referral Type 0.5 mg (0.736 mL) subcut QWEEK 3 mL 1RF Coding Level of Care Code Est Pt Level 4 (05079) Complex EM visit Add On G2211 Diagnoses Type 2 diabetes mellitus with hyperglycemia, with long-term current use of insulin E11.65; Z79.4 Hypercholesterolemia E78.00
[2024-03-23 11:26] VITALS: BP 112/66; PULSE 107; O2SAT 97; BMI 37.4
[2024-03-23 11:43] LABS: Glucose, Whole Blood 139 mg/dL (60-115)
[2024-03-23 11:54] VITALS: PULSE 96
== END 2024-03-23 12:01 | disposition home or self-care (01) ==
PROVIDERS: PCP Internal Medicine; Visit Provider Physician Assistant Medical
DX: E11.65 Type 2 diabetes mellitus with hyperglycemia (principal); Z79.4 Long term (current) use of insulin; E78.00 Pure hypercholesterolemia, unspecified

== ENCOUNTER 2024-04-20 11:25 | Outpatient (AMB) | payer MEDICARE, MEDICAID, SELFPAY ==
--- NOTE | 2024-04-20 11:28 | MHC.OFFVIS ---
Vital Signs 04/20/24 11:34 Height 5 ft 1 in Weight 202 lb 9.677 oz BMI 38.3 BP 126/70 Blood Pressure Location Lt brachial Position Sitting Pulse 81 Pulse Source Pulse Oximeter Pulse Oximetry (%) 96 Oxygen Delivery Method Room Air Intake Visit Reasons: DM Intake Note: Patient present today to follow up on Type 2 Diabetes Mellitus. Last Diabetic Eye exam: 12/30/2023 Last Podiatry Visit: Does not see a Sign Maintenance Random Glucose: 127 mg/dl HgA1C: 8.3% 03/23/2024 Applications Programmer Analyst Required: No Accompanied by: Self / Same As Patient Allergies morphine [MORPHINE] Allergy (Intermediate, Verified 04/20/24 11:34) NAUSEA, rash oxycodone [From PERCOCET] Allergy (Intermediate, Verified 04/20/24 11:34) ITCHY, rash penicillin V Allergy (Intermediate, Verified 04/20/24 11:34) hives simvastatin Allergy (Intermediate, Verified 04/20/24 11:34) rash hydrocodone [From VICODIN] Allergy (Mild, Verified 04/20/24 11:34) RASH amoxicillin [Amoxicillin] Allergy (Unknown, Verified 04/20/24 11:34) UNKNOWN HPI Comments Details: This is a 43-year-old female with a past medical history of type 2 diabetes, YAHIR, CVA, GERD, tobacco use, asthma, hyperlipidemia, hypertension and obesity presenting for diabetic management. She developed gestational diabetes 14 years ago and then type II diabetes. Patient says her father has type 1 diabetes. She had her blood work done this morning to screen for type 1 diabetes. She met with the associate director finance. She has a follow up scheduled. She had to reschedule the appointment in December. Reviewed Clare 3 data for the past 14 days G [place] 7.7% Glucose variability 28.1% Average glucose 182 mg/dL Very high 11% High 31% Target range 58% 0% hypoglycemia. There is a pattern of hyperglycemia mid morning and in the evening. Hemoglobin a1c 8.4% 03/23/24 down from 11.5% 10/24/2023. Current medication regimen: Jardiance 25 mg, Novolog sliding scale, Lantus 70 units nightly and Ozempic to 1 mg weekly. Metformin discontinued due to GI side effects. She went off the diabetic diet for the week of school vacation, but she is adhering to it again. She gained 5 lb back. She has not needed to use NovoLog for breakfast or lunch, but she does still need to use it before dinner sometimes. Hypoglycemia symptoms: Sweaty, shaky. She has had 1 low a week for the past month occurring overnight or early childhood worker. The lowest glucose was 59. She treats with orange juice. Hyperglycemia symptoms: Polyuria and polydipsia Eye exam: UTD Microvascular complications: neuropathy Macrovascular complications: Prior CVA ROS: Constitutional: No unexplained weight loss, fever, chills, fatigue or night sweats. Eyes: No vision changes, blurry vision, double vision Respiratory: No shortness of breath Cardiovascular: No chest pain Neurologic: No headache, dizziness, syncope, unilateral weakness, ataxia Endocrine: see HPI Physical exam: Constitutional: Alert, in no distress. Eyes: Pupils are equal, round and reactive to light. Extraocular muscles intact. Neck: Supple, Full range of motion. No palpable thyroid masses. Respiratory: Clear to auscultation. Cardiovascular: S1 S2 regular. No murmurs. [facility] Medical History Diabetes mellitus with hyperglycemia Sleep apnea Hypersomnia Right sided weakness Burping Bloating Difficulty swallowing Screening for hypothyroidism Contusion of right knee Burn Wound cellulitis Neck pain IBS (irritable bowel syndrome) GERD (gastroesophageal reflux disease) Crohn's disease Seizure disorder Tobacco abuse Asthma Hypercholesterolemia Hypertension Obesity (BMI 30-39.9) Anxiety and depression Type 2 diabetes mellitus with hyperglycemia, with long-term current use of insulin Migraine Panic disorder PTSD (post-traumatic stress disorder) OCD (obsessive compulsive disorder) Surgical History H/O bilateral breast reduction surgery H/O arthroscopy History of ankle surgery Previous section Family History Father CVD (cerebrovascular disease) Diabetes Hypertension Mother Depression Chronic mental illness Maternal Grandmother Myocardial infarction CVD (cerebrovascular disease) Breast cancer Maternal Aunt Liver cancer Family/Other PTSD (post-traumatic stress disorder) Migraines Asthma Other Mental health disorder Social History Housing: Apartment Alcohol intake: former Patient Tobacco Use Status: Current everyday Tobacco user Tobacco use type: Cigarette Cigarettes Per Day: 2 e-Cigarette/Vaping Use: Never Used Second Hand Smoke Exposure: Yes Substance Use Type: Marijuana service: No Current occupational status: unemployed Current occupation: left handed Cognitive needs: No Hearing needs: No Vision needs: Yes (glasses) Physical Exam Vital Signs: BMI result Body Mass Index 38.3 Office Procedures Glucose Monitoring Details Details: see HPI 95927 - Glucose monitoring, continuous-physician I&R Procedure code (CPT) selection complete Results Reviewed Results Reviewed: Laboratory Tests 01/07/23 04/15/23 04/16/23 09:55 09:20 08:36 BUN Creatinine Estim Creat Clear Calc Estimated GFR Random Glucose Hgb A1c (Clinic) 9.6 H 11.2 H AST ALT Alkaline Phosphatase Triglycerides Cholesterol LDL Cholesterol, Calc HDL Cholesterol TSH Free T4 Urine Creatinine 50.27 Urine Microalbumin 5.0 Microalb/Creat Ratio 9.9 04/16/23 07/15/23 08:37 14:41 BUN 10 Creatinine 0.73 Estim Creat Clear Calc 96.1 Estimated GFR > 60 Random Glucose 188 H Hgb A1c (Clinic) AST 23 ALT 19 Alkaline Phosphatase 91 Triglycerides 307 H Cholesterol 240 H LDL Cholesterol, Calc 132 H HDL Cholesterol 47 TSH 0.87 Free T4 0.79 Urine Creatinine Urine Microalbumin Microalb/Creat Ratio Assessment & Plan Assessment & Plan (1) Type 2 diabetes mellitus with hyperglycemia, with long-term current use of insulin: Comment: Dr. Anderson Code(s): E11.65 - Type 2 diabetes mellitus with hyperglycemia; Z79.4 - senior living (current) use of insulin Category: Medical Plan: In summary this is a 42 year old female with poorly controlled Type II DM with improved compliance with micro and macrovascular complications. Decrease Lantus to 65 units nightly. If she has continued low glucose readings she will reduce the dose of Lantus to 60 units at night. Increase Ozempic to 2 mg weekly. Continue Jardiance 25 mg daily. Continue NovoLog, but reduce sliding scale: If blood sugar is under 150 do not take Novolog. <150 no insulin 150-199 2 units 200-250 4 units 251-300 6 units 301-350 8 units 351-400 10 units >400 12 units If you experience low blood sugar, treat this by eating a chewable fruit candy like skittles or jelly beans (about 8 pieces), 4 ounces (1/2 cup) of fruit juice (not diet), 1 tablespoon of honey or 4 glucose tablets. If your blood sugar is under 50, take double the amount of one of the above. Recheck your blood sugar in [address] if you have symptoms of low blood sugar or do not have a reliable way to check your blood glucose. Follow up in 4 weeks for type 2 diabetes. (2) Hypercholesterolemia: Code(s): E78.00 - Pure hypercholesterolemia, unspecified Category: Medical Plan: Continue Crestor. LDL is less than 100 now. Plan Follow up in 4 weeks for diabetes. Orders: Orders AMB Glucose Monitoring Today E11.9 - Type 2 diabetes mellitus without complications Patient Instructions: Novolog <150 0 units 150-199 2 units 200-250 4 units 251-300 6 units 301-350 8 units 351-400 10 units >400 12 units Increase Ozempic to 2 mg weekly. Decrease Lantus to 65 units nightly. If you continue to have low blood sugars then decrease to 60 units nightly. Coding Level of Care Code Est Pt Level 4 (13621) Diagnoses Type 2 diabetes mellitus with hyperglycemia, with long-term current use of insulin E11.65; Z79.4 Hypercholesterolemia E78.00 CPT Codes Details - CPT: 08663 - Glucose monitoring, continuous-physician I&R ([id number])
[2024-04-20 11:34] VITALS: BP 126/70; PULSE 81; O2SAT 96; BMI 38.3
[2024-04-20 11:43] LABS: Glucose, Whole Blood 127 mg/dL (60-115)
--- OUTSIDE RECORDS SUMMARY | 2024-04-20 14:26 | XMS_ITS | Continuity of Care Document ---
Author Organization [facility] Address [address] [place] [address] Phone [phone] Care Team Providers Care Commission Broker Name Role Phone Tracy Delacruz NP Care Team Information Receive r [phone] Gurdeep Villarreal Care Team Information Rfid Systems Engineer + [phone] Problems Active Problems Provider Date Irritable bowel syndrome VIRI Joyner Onse t: 01/28/2023 Gastroesophageal reflux disease VIRI Joyner Onset: 01/28/2023 Crohn's disease VIRI Joyner Onset: 2022 Seizure disorder VIRI Joyner Onset: 01/28 Tobacco user VIRI Joyner Onset: 2022 Asthma VIRI Joyner Onset: 2022 Hypercholesterolemia VIRI Joyner Onset: 1 03/31/2022 Type 2 diabetes mellitus VIRI Joyner Onse t: 01/28/2023 Panic disorder VIRI Joyner Onset: 2022 Posttraumatic stress disorder VIRI Joyner Onset: 01/28/2023 Obsessive-compulsive disorder VIRI Joyner Onset: 01/28/2023 Social History Type Date Description Comments Sex Unknown Marital Status Has been 1 time Lives With Spouse Work Status Disabled Tobacco Use Start: Unknown Heavy tobacco sm oker (more than 10 cigarettes/day) Smoking Status Reviewed: 01/28/23 Heavy tobacco smoker (more than 10 cigarettes/day) ETOH Use Occasionally consumes alcoho l Allergies and adverse reactions Active Allergies Criticality Reaction Severity Comments Date Morphine Unable to assess criticality 01/28/2023 Oxycodone Unable to assess criticality 01/28/2023 Penicillin Unable to assess criticality 01/28/2023 Simvastatin Unable to assess criticality 01/28/2023 Hydrocodone Unable to assess criticality 01/28/2023 Amoxicillin Unable to assess criticality 01/28/2023 Medications Active Medications SIG Qnty Indications Order ing Provider Date Aspirin 8181mg Tablets DR 1 by mouth every day Heather Ashley M.D. 01/28/2023 Freestyle Clare 2/[place]/Flash Glucose Monitoring [id number] Device use as directed with sensors dx: e11.9 1units E11.9 Eduin Pina M.D. 01/28/2023 Freestyle Clare 2/Sensor/Flash Glucose Monitoring [id number] Misc 1 sensor every 14 days Dx: e11.9 3units E11.9 Eduin Pina M.D. 01/28/2023 Quetiapine Kesjrhcm166ti Tablets Take 1 Tablet By Mouth Twice A Day as Needed Unknown [id number] Capsules Take 4 Capsules By Mouth 2 Times A Day Po, Lorenver Cljdvbfewr5xg Tablets Take 2 Tablets By Mouth Daily And 1 Tablet AT Bedtime Unknown Venlafaxine HCL PJ161mv Caps ER 24HR Take 2 Capsules By Mouth Every Day In The Morning Unknown Lantus Kauapcgt158Fvgh/ML Solution Pen-Inject 34 Unit (0.34 ML) Subcutaneously Every Evening Tracy Delacruz, THELMA Clonidine HCL0.2mg Tablets Take 1 Tablet By Mouth Everyday AT Bedtime Unknown Trazodone DKK99it Tablets Take 1 To 2 Tablets By Mouth AT Bedtime as Needed Unknown Lybbcmkda45tp Tablets Take 1 Tablet By Mouth Every Day Po, Lorenver Meloxicam7.5mg Tablets Take 1 Tablet Orally Daily Po, Lorenver Ybzagqpffk27zn Capsules DR Take 1 Capsule Orally Daily Po, Lorenver BD Pen Needle/Short/Ultra- Fine/31G X 8mm31G X 8 mm Misc as Directed Daily With Insulin Pen Po, Lorenver Quetiapine Vfyqusth294ho Tablets 1 tab by mouth every day Unknown Vital Signs Date Vital Result Comment 01/28/2023 9:48am BP Systolic 136 mmHg BP Diastolic 84 mmHg Heart Rate 101 /min Height 60 inches 5'0 Weight 183.38 lb BMI (Body Mass Index) 35.8 kg/m2 Results Test Acquired Date Facility Test Result H/L Range [place] Laboratory test finding 01/28/2023 Inhouse Glucose Fingerstick 171 Procedures Date Code Description Status 03/10/2023 NSHOWOFF No Show Office Visit Complet ed 02/11/2023 NSHOWOFF No Show Office Visit Complet ed Medical Devices Description No Information Available Encounters Type Date Location Provider Dx Diagnosis Office Visit 01/28/2023 9:15a Main Office VIRI Joyner E66.9 Obesity, unsp ecified E11.40 Type 2 diabetes rocio itus with diabetic neuropathy, unsp Assessments Date Code Description Provider 01/28/2023 E66.9 Obesity, unspecified VIRI Joyner 01/28/2023 E11.40 Type 2 diabetes mellitus with diabetic neuropathy, unspecified VIRI Joyner Plan of Treatment 01/28/2023 - VIRI Joyner* E66.9 Obesity, unspecified * E11.40 Type 2 diabetes mellitus with diabetic neuropathy, unspecified * Functional Status Description No Information Available Mental Status Description No Information Available Referrals Description No Information Available
--- OUTSIDE RECORDS SUMMARY | 2024-04-20 14:27 | XMS_ITS | Patient Health Record ---
Author Organization [facility] Address [address] [place] [address] Care Team Providers Care Store Shopper Name Role Phone John Odonnell Primary Care Provider Reason For Referral No Information Medications Medication SIG (Take, Route, Frequency, Duration) Notes Start Date End Date Status Ibuprofen 800 MG 0 Oral 1 prn headache, uses 20/month ae:0 08/10/2012 Active dimenhyDRINATE 50 mg 0 Oral 1 prn 10/13/2012 Active cloNIDine HCl 0.3 MG 0 Oral 1 qhs for sleep 08/10/2012 Active VITAMIN D3 50,000 UNITS CAPS 0 1 qweek *please review for potential update for e-prescription and drug interaction check* 08/10/2012 Active clonazePAM 2 MG 0 Oral 1bid 08/10/2012 A ctive TRAMADOL HCL 50 MG TABLET 0 1 q6h prn, uses 15-20/month *please review for potential update for e-prescription and drug interaction check* 08/10/2012 Active DIPHENOXYLATE-ATROPINE TABLET 2.5-0.025 MG 0 PRn diarrhea *please review for potential update for e-prescription and drug interaction check* 10/13/2012 Active Soma 350 MG 0 Oral 1-2/day prn headache 10/13/2012 Active Ranitidine HCl 300 MG 0 Oral 1-2/day prn gerd *please review for potential update for e-prescription and drug interaction check* 08/10/2012 Active Baclofen 10 MG 0 Oral 1 tid prn 08/10/2012 Active IMPLANON 68 MG IMPLANT 0 *please r henry for potential update for e-prescription and drug interaction check* 09/20/2009 Active HYDROXYZINE REGAN 50 MG CAP 0 1-2/day for anxiety *please review for potential update for e-prescription and drug interaction check* 07/18/2010 Active FLORAJEN ACIDOPHILUS CAPSULE 460 MG (20 BILLION CELL) 0 1 cap qd *please review for potential update for e-prescription and drug interaction check* 10/13/2012 Active EFFEXOR XR 150 MG CAPSULE 0 1 bid *please review for potential update for e-prescription and drug interaction check* psychiatrist Dr. Terry at [facility] 07/18/2010 Active Plan Of Treatment No Information Insurance Providers Payer Name Payer Address Payer Phone Subscriber Number Group Number Insured Name Patient Relationship to Insured Coverage Start Date Coverage End Date MEDICARE B [address] [place] [id number] Darlene Godfrey Self - patient is the insured [place] Medicaid [address] [place] [address] [id number] Darlene Godfrey Self - patient is the insured
== END 2024-04-20 12:07 | disposition home or self-care (01) ==
PROVIDERS: PCP Internal Medicine; Visit Provider Physician Assistant Medical
DX: E11.65 Type 2 diabetes mellitus with hyperglycemia (principal); Z79.4 Long term (current) use of insulin; E78.00 Pure hypercholesterolemia, unspecified

== ENCOUNTER → 2024-04-20 11:25 | Outpatient (BNVA) | payer MEDICARE, MEDICAID, SELFPAY | PROVIDERS: PCP Internal Medicine; Visit Provider Physician Assistant Medical | DX: E11.65 Type 2 diabetes mellitus with hyperglycemia (principal); E78.00 Pure hypercholesterolemia, unspecified; Z79.4 Long term (current) use of insulin | CPT/HCPCS: 82947; 99212 ==

== ENCOUNTER 2024-05-21 11:22 | Outpatient (AMB) | payer MEDICARE, MEDICAID, SELFPAY ==
--- NOTE | 2024-05-21 11:23 | A.OFFVIS_ITS ---
Vital Signs 05/21/24 11:25 Height 5 ft 1 in Weight 199 lb 1.239 oz BMI 37.6 BP 126/82 Blood Pressure Location Lt brachial Position Sitting Pulse 94 Pulse Source Pulse Oximeter Pulse Oximetry (%) 98 Oxygen Delivery Method Room Air Intake Visit Reasons: DM Intake Note: Patient present today to follow up on Type 2 Diabetes Mellitus. Last Diabetic Eye exam: 12/30/2023 Last Podiatry Visit: Does not see a Sociology Faculty Member Random Glucose: 112 mg/dl HgA1C: 8.3% 03/23/2024 Automotive Dismantler Required: No Accompanied by: Self / Same As Patient Allergies morphine [MORPHINE] Allergy (Intermediate, Verified 05/21/24 11:27) NAUSEA, rash oxycodone [From PERCOCET] Allergy (Intermediate, Verified 05/21/24 11:27) ITCHY, rash penicillin V Allergy (Intermediate, Verified 05/21/24 11:27) hives simvastatin Allergy (Intermediate, Verified 05/21/24 11:27) rash hydrocodone [From VICODIN] Allergy (Mild, Verified 05/21/24 11:27) RASH amoxicillin [Amoxicillin] Allergy (Unknown, Verified 05/21/24 11:27) UNKNOWN HPI Comments Details: This is a 43-year-old female with a past medical history of type 2 diabetes, YAHIR, CVA, GERD, tobacco use, asthma, hyperlipidemia, hypertension and obesity presenting for diabetic management. She developed gestational diabetes 14 years ago and then type II diabetes. Reviewed Clare 3+ data CGM active 91% Average glucose 172 G [place] 7.4% Glucose variability 33.5% Very high 12% High 25% Target range 63% 0% hypoglycemia. She has a pattern of hyperglycemia in the evening following her evening snack. Hemoglobin a1c 8.4% 03/23/24 down from 11.5% 10/24/2023. Current medication regimen: Jardiance 25 mg, Novolog sliding scale, Lantus 70 units nightly and Ozempic to 2 mg weekly. Metformin discontinued due to GI side effects. Patient says she is going by her sliding scale for NovoLog and only requiring NovoLog once or maybe twice per day, but often times she does not administer it before dinnertime based on her glucose reading. She then has a snack that is higher in sugar and carbs in the evening. Hypoglycemia symptoms: She had 1 low sugar of 59 3 weeks ago overnight, and she treated it by drinking coke. Hyperglycemia symptoms: Polyuria and polydipsia Eye exam: UTD Microvascular complications: neuropathy Macrovascular complications: Prior CVA ROS: Constitutional: No unexplained weight loss, fever, chills, fatigue or night sweats. Eyes: No vision changes, blurry vision, double vision Respiratory: No shortness of breath Cardiovascular: No chest pain Neurologic: No headache, dizziness, syncope, unilateral weakness, ataxia Endocrine: see HPI Physical exam: Constitutional: Alert, in no distress. Eyes: Pupils are equal, round and reactive to light. Extraocular muscles intact. Neck: Supple, Full range of motion. No palpable thyroid masses. Respiratory: Clear to auscultation. Cardiovascular: S1 S2 regular. No murmurs. [facility] Medical History Diabetes mellitus with hyperglycemia Sleep apnea Hypersomnia Right sided weakness Burping Bloating Difficulty swallowing Screening for hypothyroidism Contusion of right knee Burn Wound cellulitis Neck pain IBS (irritable bowel syndrome) GERD (gastroesophageal reflux disease) Crohn's disease Seizure disorder Tobacco abuse Asthma Hypercholesterolemia Hypertension Obesity (BMI 30-39.9) Anxiety and depression Type 2 diabetes mellitus with hyperglycemia, with long-term current use of insulin Migraine Panic disorder PTSD (post-traumatic stress disorder) OCD (obsessive compulsive disorder) Surgical History H/O bilateral breast reduction surgery H/O arthroscopy History of ankle surgery Previous section Family History Father CVD (cerebrovascular disease) Diabetes Hypertension Mother Depression Chronic mental illness Maternal Grandmother Myocardial infarction CVD (cerebrovascular disease) Breast cancer Maternal Aunt Liver cancer Family/Other PTSD (post-traumatic stress disorder) Migraines Asthma Other Mental health disorder Social History Housing: Apartment Alcohol intake: former Patient Tobacco Use Status: Current everyday Tobacco user Tobacco use type: Cigarette Cigarettes Per Day: 2 e-Cigarette/Vaping Use: Never Used Second Hand Smoke Exposure: Yes Substance Use Type: Marijuana service: No Current occupational status: unemployed Current occupation: left handed Cognitive needs: No Hearing needs: No Vision needs: Yes (glasses) Physical Exam Vital Signs: Last Vital Signs Pulse 94 05/21/24 11:25 BP 126/82 05/21/24 11:25 Pulse Ox 98 05/21/24 11:25 Oxygen Delivery Method Room Air 05/21/24 11:25 BMI result Body Mass Index 37.6 Office Procedures Glucose Monitoring Details Details: see HPI 33343 - Glucose monitoring, continuous-physician I&R Procedure code (CPT) selection complete Results Reviewed Results Reviewed: Laboratory Last Values Glucose (Clinic) 112 mg/dL (60-115) 05/21/24 11:33 04/16/23 03/23/24 03/23/24 08:36 11:15 11:49 Creatinine 0.70 Estimated GFR > 60 Hgb A1c (Clinic) 8.4 H Hemoglobin A1c % 8.3 H AST 26 ALT 12 Triglycerides 275 H Cholesterol 191 LDL Cholesterol, Calc 92 HDL Cholesterol 44 Urine Creatinine 50.27 Urine Microalbumin 5.0 Microalb/Creat Ratio 9.9 Assessment & Plan Assessment & Plan (1) Type 2 diabetes mellitus with hyperglycemia, with long-term current use of insulin: Code(s): E11.65 - Type 2 diabetes mellitus with hyperglycemia; Z79.4 - USP (current) use of insulin Category: Medical Plan: In summary this is a 43 year old female with suboptimally controlled Type II DM with improved compliance with micro and macrovascular complications. Continue Lantus 65 units nightly. Continue Ozempic to 2 mg weekly. Continue Jardiance 25 mg daily. Try to administer 4 units of Novolog before evening snack if having carbs/sugar. Novolog sliding scale If blood sugar is under 150 do not take Novolog. <150 no insulin 150-199 2 units 200-250 4 units 251-300 6 units 301-350 8 units 351-400 10 units >400 12 units If you experience low blood sugar, treat this by eating a chewable fruit candy like skittles or jelly beans (about 8 pieces), 4 ounces (1/2 cup) of fruit juice (not diet), 1 tablespoon of honey or 4 glucose tablets. If your blood sugar is under 50, take double the amount of one of the above. Recheck your blood sugar in [address] if you have symptoms of low blood sugar or do not have a reliable way to check your blood glucose. Follow up in 4 weeks for type 2 diabetes. (2) Hypercholesterolemia: Code(s): E78.00 - Pure hypercholesterolemia, unspecified Category: Medical Plan: Continue Crestor. Plan Follow up in 4 weeks for diabetes. Orders: Orders AMB Glucose Monitoring Today E11.9 - Type 2 diabetes mellitus without complications Patient Instructions: Continue Lantus 65 units nightly. Continue Ozempic to 2 mg weekly. Continue Jardiance 25 mg daily. Administer 4 units of Novolog before evening snack if having carbs/sugar. Novolog sliding scale If blood sugar is under 150 do not take Novolog. <150 no insulin 150-199 2 units 200-250 4 units 251-300 6 units 301-350 8 units 351-400 10 units >400 12 units Coding Level of Care Code Est Pt Level 4 (70559) Diagnoses Type 2 diabetes mellitus with hyperglycemia, with long-term current use of insulin E11.65; Z79.4 Hypercholesterolemia E78.00 CPT Codes Details - CPT: 84843 - Glucose monitoring, continuous-physician I&R ([id number])
[2024-05-21 11:25] VITALS: BP 126/82; PULSE 94; O2SAT 98; BMI 37.6
[2024-05-21 11:38] LABS: Glucose, Whole Blood 112 mg/dL (60-115)
--- OUTSIDE RECORDS SUMMARY | 2024-05-21 13:19 | XMS_ITS | Patient Health Record ---
Author Organization [facility] Address [address] [place] [address] Care Team Providers Care Repair Tech Name Role Phone John Odonnell Primary Care [...] drug interaction check* psychiatrist Dr. Terry at [facility] 07/18/2010 Active Plan Of Treatment No Information Insurance Providers Payer Name Payer Address Payer Phone Subscriber Number Group Number Insured Name Patient Relationship to Insured Coverage Start Date Coverage End Date MEDICARE B [address] [place], [place] [id number] Darlene Godfrey Self - patient is the insured [place] Medicaid [address] [place] [address] [id number] Darlene Godfrey Self - patient is the insured
== END 2024-05-21 12:01 | disposition home or self-care (01) ==
LOC: HO.ENCR 11:22
PROVIDERS: PCP Internal Medicine; Visit Provider Physician Assistant Medical
DX: E11.65 Type 2 diabetes mellitus with hyperglycemia (principal); Z79.4 Long term (current) use of insulin; E78.00 Pure hypercholesterolemia, unspecified

== ENCOUNTER → 2024-05-21 11:22 | Outpatient (BNVA) | payer MEDICARE, MEDICAID, SELFPAY | PROVIDERS: PCP Internal Medicine; Visit Provider Physician Assistant Medical | DX: E11.65 Type 2 diabetes mellitus with hyperglycemia (principal); E78.00 Pure hypercholesterolemia, unspecified; Z79.4 Long term (current) use of insulin | CPT/HCPCS: 82947; 99212 ==

== ENCOUNTER 2024-06-18 11:25 | Outpatient (AMB) | payer MEDICARE, MEDICAID, SELFPAY ==
--- NOTE | 2024-06-18 11:30 | A.OFFVIS_ITS ---
Vital Signs 06/18/24 11:33 Height 5 ft 1 in Weight 200 lb 13.458 oz BMI 37.9 BP 114/76 Blood Pressure Location Lt brachial Position Sitting Pulse 97 Pulse Source Pulse Oximeter Pulse Oximetry (%) 96 Oxygen Delivery Method Room Air Intake Visit Reasons: DM Intake Note: Patient present today to follow up on Type 2 Diabetes Mellitus. 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: No Accompanied by: Self / Same As Patient Allergies morphine [MORPHINE] Allergy (Intermediate, Verified 06/18/24 11:33) NAUSEA, rash oxycodone [From PERCOCET] Allergy (Intermediate, Verified 06/18/24 11:33) ITCHY, rash penicillin V Allergy (Intermediate, Verified 06/18/24 11:33) hives simvastatin Allergy (Intermediate, Verified 06/18/24 11:33) rash hydrocodone [From VICODIN] Allergy (Mild, Verified 06/18/24 11:33) RASH amoxicillin [Amoxicillin] Allergy (Unknown, Verified 06/18/24 11:33) UNKNOWN Medication List - Last Reconciled 06/18/24 by VIRI Murphy aspirin (Adult Low Dose Aspirin) 81 mg PO DAILY 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 sensor ([employer]Style Clare 3 Sensor device) apply new sensor every 14 days as directed 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,turkey farmer,cont (FreeStyle Clare 3 [place]) USE DIRECTED nxfxmbxuxa-vjcaxiayqzxhp-saof 50-325-40 mg 1 tab PO DAILY PRN clonazepam 1 mg PO TID clonidine HCl 0.2 mg PO DAILY dextrose (TRUEplus Glucose) 15 grams (32 mL) PO Q15M PRN docusate sodium 100 mg PO DAILY empagliflozin (Jardiance) 25 mg PO DAILY gabapentin 400 mg (4 x 100 mg) PO BID glucose (Dex4 Glucose Quick Dissolve) 16 grams (4 x 4 gram) PO Q15M PRN insulin aspart U-100 (Novolog FlexPen U-100 Insulin aspart) 1 sliding scale dose subcut USEASDIRECTD insulin glargine (Lantus Solostar U-100 Insulin) 60 units subcut .qhs meloxicam 7.5 mg PO DAILY mupirocin 2% 1 appl topical BID 7 days omeprazole 20 mg PO BID ondansetron 4 mg PO Q8H PRN pen needle, diabetic (BD Ultra-Fine Short Pen Needle) As directed daily with insulin pen four times daily. quetiapine (Seroquel) 1 tab PO BEDTIME quetiapine 1 tab PO BEDTIME rosuvastatin 10 mg PO .every other night 90 days tirzepatide (Mounjaro) 2.5 mg (0.5 mL) subcut QWEEK trazodone 2 tabs PO BEDTIME venlafaxine ER (Effexor XR) 300 mg PO DAILY HPI Comments Details: This is a 43-year-old female with a past medical history of type 2 diabetes, YAHIR, CVA, GERD, tobacco use, asthma, hyperlipidemia, hypertension and obesity presenting for diabetic management. She developed gestational diabetes 14 years ago and then type II diabetes. Reviewed Cloutex 3+ CGM active 96% Average glucose 166 G NE 7.3% Glucose variability 34.8% Very high 10% High 21% Target range 65% Low 3% Very low 1% Last Friday evening, through Friday night and into the morning she had hypoglycemia. She does not know why this happened. She ate her regular meals, and she did not change any of her medications. She tried to correct it by eating peanut butter and having soda. She did not have alcohol. She denies other episodes. She felt sweaty, hungry and shaky and tired. She did not increase her exercise or change her diet. At her last visit we discussed taking 4 units of Humalog if she has a high carb/sugary snack at night, but she has not been doing that at all and did not take extra insulin. She has not lost weight on Ozempic, and she wants to try Mounjaro again. She previously stopped it due to belching, but she wants to try it again. Hemoglobin A1c 06/18/2024 7.9%. Hemoglobin a1c 8.4% 03/23/24 down from 11.5% 10/24/2023. Current medication regimen: Jardiance 25 mg, Novolog sliding scale, Lantus 65 units nightly and Ozempic to 2 mg weekly. Past medication: Metformin discontinued due to GI side effects. Hypoglycemia symptoms: see above Hyperglycemia symptoms: Polyuria and polydipsia Eye exam: UTD Microvascular complications: neuropathy Macrovascular complications: Prior CVA ROS: Constitutional: No unexplained weight loss, fever, chills, fatigue or night sweats. Eyes: No vision changes, blurry vision, double vision Respiratory: No shortness of breath Cardiovascular: No chest pain Neurologic: No headache, dizziness, syncope, unilateral weakness, ataxia Endocrine: see HPI Physical exam: Constitutional: Alert, in no distress. Eyes: Pupils are equal, round and reactive to light. Extraocular muscles intact. Neck: Supple, Full range of motion. No palpable thyroid masses. Respiratory: Clear to auscultation. Cardiovascular: S1 S2 regular. No murmurs. [facility] Medical History Diabetes mellitus with hyperglycemia Sleep apnea Hypersomnia Right sided weakness Burping Bloating Difficulty swallowing Screening for hypothyroidism Contusion of right knee Burn Wound cellulitis Neck pain IBS (irritable bowel syndrome) GERD (gastroesophageal reflux disease) Crohn's disease Seizure disorder Tobacco abuse Asthma Hypercholesterolemia Hypertension Obesity (BMI 30-39.9) Anxiety and depression Type 2 diabetes mellitus with hyperglycemia, with long-term current use of insulin Migraine Panic disorder PTSD (post-traumatic stress disorder) OCD (obsessive compulsive disorder) Surgical History H/O bilateral breast reduction surgery H/O arthroscopy History of ankle surgery Previous section Family History Father CVD (cerebrovascular disease) Diabetes Hypertension Mother Depression Chronic mental illness Maternal Grandmother Myocardial infarction CVD (cerebrovascular disease) Breast cancer Maternal Aunt Liver cancer Family/Other PTSD (post-traumatic stress disorder) Migraines Asthma Other Mental health disorder Social History Housing: Apartment Alcohol intake: former Patient Tobacco Use Status: Current everyday Tobacco user Tobacco use type: Cigarette Cigarettes Per Day: 2 e-Cigarette/Vaping Use: Never Used Second Hand Smoke Exposure: Yes Substance Use Type: Marijuana service: No Current occupational status: unemployed Current occupation: left handed Cognitive needs: No Hearing needs: No Vision needs: Yes (glasses) Physical Exam Vital Signs: Last Vital Signs Pulse 97 06/18/24 11:33 BP 114/76 06/18/24 11:33 Pulse Ox 96 06/18/24 11:33 Oxygen Delivery Method Room Air 06/18/24 11:33 BMI result Body Mass Index 37.9 Office Procedures Glucose Monitoring Details Details: See [facility] [address] - Glucose monitoring, continuous-physician I&R Procedure code (CPT) selection complete Results AMB Hemoglobin A1c AMB Hemoglobin A1c 7.9 % Last Edit by NASRIN Watson on 06/18/24 11:49 Results Reviewed Results Reviewed: Laboratory Last Values Glucose (Clinic) 95 mg/dL (60-115) 06/18/24 11:38 04/16/23 03/23/24 03/23/24 08:36 11:15 11:49 Creatinine 0.70 Estimated GFR > 60 Hgb A1c (Clinic) 8.4 H Hemoglobin A1c % 8.3 H AST 26 ALT 12 Triglycerides 275 H Cholesterol 191 LDL Cholesterol, Calc 92 HDL Cholesterol 44 Urine Creatinine 50.27 Urine Microalbumin 5.0 Microalb/Creat Ratio 9.9 Assessment & Plan Assessment & Plan (1) Type 2 diabetes mellitus with hyperglycemia, with long-term current use of insulin: Code(s): E11.65 - Type 2 diabetes mellitus with hyperglycemia; Z79.4 - residential (current) use of insulin Category: Medical Plan: In summary this is a 43 year old female with suboptimally controlled albeit improved Type II DM with micro and macrovascular complications. Unclear as to what caused prolonged hypoglycemia last weekend. We did discuss that if she has low blood sugar and needs to be corrected with a sugary food or drink and to not have something like peanut butter that has fats and oils and slows absorption of sugar. She understands. I provided her with written instructions again for treatment of hypoglycemia. Glucose gel sent to the pharmacy. Decrease Lantus to 60 units nightly. Continue Ozempic to 2 mg weekly. I will send the prescription for Mounjaro 2.5 mg weekly. She should take this 1 week after her last dose of Ozempic. Side effects reviewed with the patient. Continue Jardiance 25 mg daily. Novolog sliding scale If blood sugar is under 150 do not take Novolog. <150 no insulin 150-199 2 units 200-250 4 units 251-300 6 units 301-350 8 units 351-400 10 units >400 12 units If you experience low blood sugar, treat this by eating a chewable fruit candy like skittles or jelly beans (about 8 pieces), 4 ounces (1/2 cup) of fruit juice (not diet), 1 tablespoon of honey or 4 glucose tablets or 1 pack of glucose gel. If your blood sugar is under 55, take double the amount of one of the above. Recheck your blood sugar in [address] if you have symptoms of low blood sugar or do not have a reliable way to check your blood glucose. Follow up in 4 weeks for type 2 diabetes. (2) Hypercholesterolemia: Code(s): E78.00 - Pure hypercholesterolemia, unspecified Category: Medical Plan: Continue Crestor. Plan Follow up in 4 weeks for diabetes. Orders: Orders AMB Hemoglobin A1c Today E11.65 - Type 2 diabetes mellitus with hyperglycemia AMB Glucose Monitoring Today E11.9 - Type 2 diabetes mellitus without complications Medications: New tirzepatide (Mounjaro) for 4 weeks 2.5 mg (0.5 mL) subcut QWEEK 2 mL 0RF dextrose (TRUEplus Glucose) until symptoms of low blood sugar are controlled 15 grams (32 mL) PO Q15M PRN 128 mL 3RF hypoglycemia Changed From insulin glargine (Lantus Solostar U-100 Insulin) 65 units (0.65 mL) subcut .qhs 30 mL 5RF E11.65 - Type 2 diabetes mellitus with hyperglycemia, Z79.4 - residential (current) use of insulin To insulin glargine (Lantus Solostar U-100 Insulin) 60 units subcut .qhs E11.65 - Type 2 diabetes mellitus with hyperglycemia, Z79.4 - residential (current) use of insulin Patient Instructions: Decrease Lantus to 60 units nightly Continue Ozempic to 2 mg weekly until your receive Mounjaro and then start Mounjaro one week after your last dose of Ozempic Continue Jardiance 25 mg daily. Novolog sliding scale If blood sugar is under 150 do not take Novolog. <150 no insulin 150-199 2 units 200-250 4 units 251-300 6 units 301-350 8 units 351-400 10 units >400 12 units If you experience low blood sugar, treat this by eating a chewable fruit candy like skittles or jelly beans (about 8 pieces), 4 ounces (1/2 cup) of fruit juice (not diet), 1 tablespoon of honey or 4 glucose tablets or one glucose gel packet. If your blood sugar is under 55, take double the amount of one of the above. Recheck your blood sugar in 15 minutes. Coding Level of Care Code Est Pt Level 4 (64906) Diagnoses Type 2 diabetes mellitus with hyperglycemia, with long-term current use of insulin E11.65; Z79.4 Hypercholesterolemia E78.00 CPT Codes Details - CPT: 35579 - Glucose monitoring, continuous-physician I&R ([id number])
[2024-06-18 11:33] VITALS: BP 114/76; PULSE 97; O2SAT 96; BMI 37.9
[2024-06-18 11:43] LABS: Glucose, Whole Blood 95 mg/dL (60-115)
--- OUTSIDE RECORDS SUMMARY | 2024-06-18 12:23 | XMS_ITS | Patient Health Record ---
Author Organization [facility] Address [address] [place] [address] Care Team Providers Care Director Child Name Role Phone John Odonnell Primary Care [...] drug interaction check* psychiatrist Dr. Terry at [facility] 07/18/2010 Active Plan Of Treatment No Information Insurance Providers Payer Name Payer Address Payer Phone Subscriber Number Group Number Insured Name Patient Relationship to Insured Coverage Start Date Coverage End Date MEDICARE B [address] [place], [place] [id number] Darlene Godfrey Self - patient is the insured [place] Medicaid [address] [place] [address] [id number] Darlene Godfrey Self - patient is the insured
== END 2024-06-18 12:07 | disposition home or self-care (01) ==
LOC: HO.ENCR 11:26
PROVIDERS: PCP Internal Medicine; Visit Provider Physician Assistant Medical
DX: E11.65 Type 2 diabetes mellitus with hyperglycemia (principal); Z79.4 Long term (current) use of insulin; E78.00 Pure hypercholesterolemia, unspecified

== ENCOUNTER → 2024-06-18 11:25 | Outpatient (BNVA) | payer MEDICARE, MEDICAID, SELFPAY | PROVIDERS: PCP Internal Medicine; Visit Provider Physician Assistant Medical | DX: E11.65 Type 2 diabetes mellitus with hyperglycemia (principal); E78.00 Pure hypercholesterolemia, unspecified; I10 Essential (primary) hypertension; E66.9 Obesity, unspecified; Z79.4 Long term (current) use of insulin; Z68.37 Body mass index [BMI] 37.0-37.9, adult | CPT/HCPCS: 82947; 83036; 99212 ==

== ENCOUNTER 2024-07-20 11:23 | Outpatient (AMB) | payer MEDICARE, MEDICAID, SELFPAY ==
--- NOTE | 2024-07-20 11:28 | MHC.OFFVIS ---
Vital Signs 07/20/24 11:31 07/20/24 11:50 Height 5 ft 1 in Weight 200 lb 6.403 oz BMI 37.9 BP 108/72 Blood Pressure Location Lt brachial Position Sitting Pulse 117 H 108 H Pulse Source Pulse Oximeter Pulse Oximetry (%) 98 Oxygen Delivery Method Room Air Intake Visit Reasons: DM Intake Note: Patient present today to follow up on Type 2 Diabetes Mellitus. 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: No Accompanied by: Self / Same As Patient Allergies morphine [MORPHINE] Allergy (Intermediate, Verified 07/20/24 11:40) NAUSEA, rash oxycodone [From PERCOCET] Allergy (Intermediate, Verified 07/20/24 11:40) ITCHY, rash penicillin V Allergy (Intermediate, Verified 07/20/24 11:40) hives simvastatin Allergy (Intermediate, Verified 07/20/24 11:40) rash hydrocodone [From VICODIN] Allergy (Mild, Verified 07/20/24 11:40) RASH amoxicillin [Amoxicillin] Allergy (Unknown, Verified 07/20/24 11:40) UNKNOWN Medication List - Last Reconciled 07/20/24 by VIRI Murphy aspirin (Adult Low Dose Aspirin) 81 mg PO DAILY 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 sensor (PowerlyticsStyle Clare 3 Sensor device) apply new sensor every 14 days as directed 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,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qhs meloxicam 7.5 mg PO DAILY mupirocin 2% 1 appl topical BID 7 days omeprazole 20 mg PO BID ondansetron 4 mg PO Q8H PRN pen needle, diabetic As directed daily with insulin pen four times daily. quetiapine (Seroquel) 1 tab PO BEDTIME quetiapine 1 tab PO BEDTIME rosuvastatin 10 mg PO .every other night 90 days tirzepatide (Mounjaro) 5 mg (0.5 mL) subcut QWEEK trazodone 2 tabs PO BEDTIME venlafaxine ER (Effexor XR) 300 mg PO DAILY HPI Comments Details: This is a 43-year-old female with a past medical history of type 2 diabetes, YAHIR, CVA, GERD, tobacco use, asthma, hyperlipidemia, hypertension and obesity presenting for diabetic management. She developed gestational diabetes 14 years ago and then type II diabetes. Reviewed Anipipoyle Clare 3+ data July 07 to July 20 CGM active 96% Average glucose 188 G KS 7.8% Glucose variability 28.1% Very high 14% High 35% Target range 51% 0% hypoglycemia Pattern of hyperglycemia in the evening and overnight. She snacks at night. She had a whole watermelon yesterday. She will sometimes eat 1/2 bag of grapes. Hemoglobin A1c 06/18/2024 7.9%. Hemoglobin a1c 8.4% 03/23/24 down from 11.5% 10/24/2023. Current medication regimen: Jardiance 25 mg, Novolog sliding scale, Lantus 60 units nightly and Mounjaro 2.5 mg weekly. Past medication: Metformin discontinued due to GI side effects. Ozempic switch to Mounjaro because she did not have weight loss on Ozempic 2 mg or achieve glycemic control on it. Hypoglycemia symptoms: No episodes since decreasing Lantus at her last visit. Hyperglycemia symptoms: Polyuria and polydipsia Eye exam: UTD Microvascular complications: neuropathy Macrovascular complications: Prior CVA ROS: Constitutional: No unexplained weight loss, fever, chills, fatigue or night sweats. Eyes: No vision changes, blurry vision, double vision Respiratory: No shortness of breath Cardiovascular: No chest pain Neurologic: No headache, dizziness, syncope, unilateral weakness, ataxia Endocrine: See HPI Physical exam: Constitutional: Alert, in no distress. Eyes: Pupils are equal, round and reactive to light. Extraocular muscles intact. Neck: Supple, Full range of motion. No palpable thyroid masses. Respiratory: Clear to auscultation. Cardiovascular: S1 S2 regular. No murmurs. COUNTS INCLUDE 234 BEDS AT THE [facility] Medical History Diabetes mellitus with hyperglycemia Sleep apnea Hypersomnia Right sided weakness [place]ping Bloating Difficulty swallowing Screening for hypothyroidism Contusion of right knee Burn Wound cellulitis Neck pain IBS (irritable bowel syndrome) GERD (gastroesophageal reflux disease) Crohn's disease Seizure disorder Tobacco abuse Asthma Hypercholesterolemia Hypertension Obesity (BMI 30-39.9) Anxiety and depression Type 2 diabetes mellitus with hyperglycemia, with long-term current use of insulin Migraine Panic disorder PTSD (post-traumatic stress disorder) OCD (obsessive compulsive disorder) Surgical History H/O bilateral breast reduction surgery H/O arthroscopy History of ankle surgery Previous section Family History Father CVD (cerebrovascular disease) Diabetes Hypertension Mother Depression Chronic mental illness Maternal Grandmother Myocardial infarction CVD (cerebrovascular disease) Breast cancer Maternal Aunt Liver cancer Family/Other PTSD (post-traumatic stress disorder) Migraines Asthma Other Mental health disorder Social History Housing: Apartment Alcohol intake: former Patient Tobacco Use Status: Current everyday Tobacco user Tobacco use type: Cigarette Cigarettes Per Day: 2 e-Cigarette/Vaping Use: Never Used Second Hand Smoke Exposure: Yes Substance Use Type: Marijuana service: No Current occupational status: unemployed Current occupation: left handed Cognitive needs: No Hearing needs: No Vision needs: Yes (glasses) Physical Exam Vital Signs: Last Vital Signs Pulse 117 H 07/20/24 11:31 BP 108/72 07/20/24 11:31 Pulse Ox 98 07/20/24 11:31 Oxygen Delivery Method Room Air 07/20/24 11:31 BMI result Body Mass Index 37.9 Office Procedures Glucose Monitoring Details Details: [place] 46782 - Glucose monitoring, continuous-physician I&R Procedure code (CPT) selection complete Results Reviewed Results Reviewed: Laboratory Last Values Glucose (Clinic) 131 mg/dL (60-115) H 07/20/24 11:38 04/16/23 03/23/24 03/23/24 08:36 11:15 11:49 Creatinine 0.70 Estimated GFR > 60 Hgb A1c (Clinic) 8.4 H Hemoglobin A1c % 8.3 H AST 26 ALT 12 Triglycerides 275 H Cholesterol 191 LDL Cholesterol, Calc 92 HDL Cholesterol 44 Urine Creatinine 50.27 Urine Microalbumin 5.0 Microalb/Creat Ratio 9.9 Assessment & Plan Assessment & Plan (1) Type 2 diabetes mellitus with hyperglycemia, with long-term current use of insulin: Code(s): E11.65 - Type 2 diabetes mellitus with hyperglycemia; Z79.4 - nursing home (current) use of insulin Category: Medical Plan: In summary this is a 43 year old female with suboptimally controlled Type II DM with micro and macrovascular complications. Continue Lantus to 60 units nightly. Increase Mounjaro to 5 mg weekly. Continue Jardiance 25 mg daily. Novolog sliding scale If blood sugar is under 150 do not take Novolog. <150 no insulin 150-199 2 units 200-250 4 units 251-300 6 units 301-350 8 units 351-400 10 units >400 12 units If you experience low blood sugar, treat this by eating a chewable fruit candy like skittles or jelly beans (about 8 pieces), 4 ounces (1/2 cup) of fruit juice (not diet), 1 tablespoon of honey or 4 glucose tablets or 1 pack of glucose gel. If your blood sugar is under 55, take double the amount of one of the above. Recheck your blood sugar in [address] if you have symptoms of low blood sugar or do not have a reliable way to check your blood glucose. Follow up in 4 weeks for type 2 diabetes. (2) Hypercholesterolemia: Code(s): E78.00 - Pure hypercholesterolemia, unspecified Category: Medical Plan: Continue Crestor. Plan Follow up in 4 weeks for diabetes. She will have labs done the week before. Orders: Orders Microalbumin, Random (w Creat) Today E11.65 - Type 2 diabetes mellitus with hyperglycemia, E11.9 - Type 2 diabetes mellitus without complications Lipid Panel Today E11.65 - Type 2 diabetes mellitus with hyperglycemia, E78.5 - Hyperlipidemia, unspecified Creatinine Today E11.65 - Type 2 diabetes mellitus with hyperglycemia, E11.9 - Type 2 diabetes mellitus without complications Alanine Aminotransferase Today E11.65 - Type 2 diabetes mellitus with hyperglycemia AMB Glucose Monitoring Today E11.9 - Type 2 diabetes mellitus without complications TSH reflex Free T4 Today E11.65 - Type 2 diabetes mellitus with hyperglycemia Vitamin B12 Today E11.65 - Type 2 diabetes mellitus with hyperglycemia, Z91.89 - Other specified personal risk factors, not elsewhere classified Aspartate Amino Transferase Today E11.65 - Type 2 diabetes mellitus with hyperglycemia Platelet Count Today E11.65 - Type 2 diabetes mellitus with hyperglycemia, E11.9 - Type 2 diabetes mellitus without complications Medications: New tirzepatide (Mounjaro) 5 mg (0.5 mL) subcut QWEEK 2 mL 1RF Refilled insulin glargine (Lantus Solostar U-100 Insulin) 60 units (0.6 mL) subcut .qhs 15 mL 5RF E11.65 - Type 2 diabetes mellitus with hyperglycemia, Z79.4 - 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
[2024-07-20 11:31] VITALS: BP 108/72; PULSE 117; O2SAT 98; BMI 37.9
[2024-07-20 11:42] LABS: Glucose, Whole Blood 131 mg/dL (60-115)
[2024-07-20 11:50] VITALS: PULSE 108
--- OUTSIDE RECORDS SUMMARY | 2024-07-20 13:05 | XMS_ITS | Continuity of Care Document ---
Author Organization [facility] Address [address] [place] [address] Phone [phone] Care Team Providers Care Accelerator Technician Name Role Phone Tracy Delacruz NP Care Team Information Receive r [phone] Gurdeep Villarreal Care Team Information Hired Help [phone] Problems Active Problems Provider Date Irritable bowel [...] day Heather Ashley M.D. 01/28/2023 Freestyle Clare 2/Challenge/Flash Glucose Monitoring [id number] Device use as directed with sensors dx: e11.9 1units E11.9 Eduin Pina M.D. 01/28/2023 Freestyle Clare 2/Sensor/Flash Glucose Monitoring Pbihbs2Pgrhbw Misc 1 sensor every 14 days Dx: e11.9 3units E11.9 Eduin Pina M.D. 01/28/2023 Quetiapine [id number] Tablets Take 1 Tablet By Mouth Twice A Day as Needed Unknown [id number] Capsules Take 4 Capsules By Mouth 2 Times A Day Po, Lorenver Qaxofonrga0mf Tablets Take 2 Tablets By Mouth Daily And 1 Tablet AT Bedtime Unknown Venlafaxine HCL [id number] Caps ER 24HR Take 2 Capsules By Mouth Every Day In The Morning Unknown Lantus [id number]/ML Solution Pen-Inject 34 Unit (0.34 ML) Subcutaneously Every Evening Tracy Delacruz, THELMA Clonidine HCL0.2mg Tablets Take 1 Tablet By Mouth Everyday AT Bedtime Unknown Trazodone KYD04ej Tablets Take 1 To 2 Tablets By Mouth AT Bedtime as Needed Unknown Kmgilzpba53pf Tablets Take 1 Tablet By Mouth Every Day Po, Lorenver Meloxicam7.5mg Tablets Take 1 Tablet Orally Daily Po, Lorenver Zuyjwployi89ay Capsules DR Take 1 Capsule Orally Daily Po, Lorenver BD Pen Needle/Short/Ultra- Fine/31G X 8mm31G X 8 mm Misc as Directed Daily With Insulin Pen Po, Lorenver Quetiapine Tbjxfemz581od Tablets 1 tab by mouth every day Unknown Vital Signs Date Vital Result Comment 01/28/2023 9:48am BP Systolic 136 mmHg BP Diastolic 84 mmHg Heart Rate 101 /min Height 60 inches 5'0 Weight 183.38 lb BMI (Body Mass Index) 35.8 kg/m2 Results Test Acquired Date Facility Test Result H/L Range N ote Glucose Fingerstick 01/28/2023 Inhouse Glucose Fingerstick 171 Procedures Date [...]
== END 2024-07-20 12:00 | disposition home or self-care (01) ==
LOC: HO.ENCR 11:27
PROVIDERS: PCP Internal Medicine; Visit Provider Physician Assistant Medical
DX: E11.65 Type 2 diabetes mellitus with hyperglycemia (principal); Z79.4 Long term (current) use of insulin; E78.00 Pure hypercholesterolemia, unspecified

== ENCOUNTER → 2024-07-20 11:23 | Outpatient (BNVA) | payer MEDICARE, MEDICAID, SELFPAY | PROVIDERS: PCP Internal Medicine; Visit Provider Physician Assistant Medical | DX: E11.65 Type 2 diabetes mellitus with hyperglycemia (principal); E78.00 Pure hypercholesterolemia, unspecified; Z79.4 Long term (current) use of insulin | CPT/HCPCS: 82947; 99212 ==

== ENCOUNTER 2024-08-13 08:40 | Outpatient (REF) | payer MEDICARE, MEDICAID, SELFPAY ==
--- OUTSIDE RECORDS SUMMARY | 2024-08-13 08:52 | XMS_ITS | Continuity of Care Document ---
Author Organization [facility] Address [address] [place] [address] Phone [phone] Care Team Providers Care Hull Sorter Name Role Phone Tracy Delacruz NP Care Team Information Receive r [phone] Gurdeep Villarreal Care Team Information Rubber Thread Spooler [phone] Problems Active Problems Provider Date Irritable bowel syndrome VIRI Joyner Onse t: 01/28/2023 Gastroesophageal reflux disease VIRI Joyner Onset: 01/28/2023 Crohn's disease VIRI Jyoner Onset: 2022 Seizure disorder VIRI Joyner Onset: 01/28 Tobacco user VIRI Joyner Onset: 2022 Asthma VIRI Joyner Onset: 2022 Hypercholesterolemia VIRI Joyner Onset: 1 03/31/2022 Type 2 diabetes mellitus VIRI Joyner Onse t: 01/28/2023 Panic disorder VIRI Joyner Onset: 2022 Posttraumatic stress disorder VIRI Joyner Onset: 01/28/2023 Obsessive-compulsive disorder VIRI Joyner Onset: 01/28/2023 Social History Type Date Description Comments Sex Female Sex Unknown Marital Status Has been 1 [...] day Heather Ashley M.D. 01/28/2023 Freestyle Clare 2/[place]/Flash Glucose Monitoring Fcafbf9Dzdpgv Device use as directed with sensors dx: e11.9 1units E11.9 Eduin Pina M.D. 01/28/2023 Freestyle Clare 2/Sensor/Flash Glucose Monitoring Skbrke9Ncdljz Misc 1 sensor every 14 days Dx: e11.9 3units E11.9 Eduin Pina M.D. 01/28/2023 Quetiapine Dmyvjfvk287zl Tablets Take 1 Tablet By Mouth Twice A Day as Needed Unknown Xbsmgoxxne719li Capsules Take 4 Capsules By Mouth 2 Times A Day Po, Lorenver Rjhefoxfef3qk Tablets Take 2 Tablets By Mouth Daily And 1 Tablet AT Bedtime Unknown Venlafaxine HCL PM839us Caps ER 24HR Take 2 Capsules By Mouth Every Day In The Morning Unknown Lantus Womcwrad295Qpbf/ML Solution Pen-Inject 34 Unit (0.34 ML) Subcutaneously Every Evening Tracy Delacruz, THELMA Clonidine HCL0.2mg Tablets Take 1 Tablet By Mouth Everyday AT Bedtime Unknown Trazodone TIZ31dd Tablets Take 1 To 2 Tablets By Mouth AT Bedtime as Needed Unknown Mkugazyjs99ru Tablets Take 1 Tablet By Mouth Every Day Po, Lorenver Meloxicam7.5mg Tablets Take 1 Tablet Orally Daily Po, Lorenver Xvkonochwi84ho Capsules DR Take 1 Capsule Orally Daily Po, Lorenver BD Pen Needle/Short/Ultra- Fine/31G X 8mm31G X 8 mm Misc as Directed Daily With Insulin Pen Po, Lorenver Quetiapine Hgbfpygh127oy Tablets 1 tab by mouth every day [...]
[2024-08-13 09:56] LABS: Platelet Count 331 X10*3/uL (160-400)
[2024-08-13 10:16] LABS: Alanine Aminotransferase 9 U/L (0-31); Aspartate Amino Transferase 25 U/L (5-31); Cholesterol 148 mg/dL (<200); Estimated Glomerular Filt Rate > 60; HDL Cholesterol 40 mg/dL (>40); LDL Cholesterol Calculated 62 mg/dL (<100); Triglycerides 231 mg/dL (<150)
[2024-08-13 10:33] LABS: TSH reflex Free T4 1.76 uIU/mL (0.32-4.0)
[2024-08-13 10:38] LABS: Vitamin B12 205 pg/mL (200-900)
[2024-08-13 11:05] LABS: Creatinine Urine 46.03 mg/dL; Microalbum/Creatinine Ratio Ur 10.8 ug/mg cr (<30)
== END 2024-08-13 08:41 | disposition home or self-care (01) ==
LOC: HO.10HDL 08:40
PROVIDERS: Visit Provider Physician Assistant Medical
DX: E78.5 Hyperlipidemia, unspecified (principal); E11.65 Type 2 diabetes mellitus with hyperglycemia; Z91.89 Other specified personal risk factors, not elsewhere classified
CPT/HCPCS: 36415; 80061; 82043; 82565; 82570; 82607; 84443; 84450; 84460; 85049

== ENCOUNTER 2024-08-17 11:13 | Outpatient (AMB) | payer MEDICARE, MEDICAID, SELFPAY ==
--- NOTE | 2024-08-17 11:24 | A.OFFVIS_ITS ---
Vital Signs 08/17/24 11:27 08/17/24 11:41 Height 5 ft 1 in Weight 205 lb 0.478 oz BMI 38.7 BP 154/84 H 142/74 H Blood Pressure Location Rt brachial Position Sitting Pulse 113 H 104 H Pulse Source Pulse Oximeter Pulse Oximetry (%) 95 Oxygen Delivery Method Room Air Intake Visit Reasons: Type II diabetes Intake Note: Patient present today to follow up on Type 2 Diabetes Mellitus. Last Diabetic Eye exam: 12/30/2023 Last Podiatry Visit: Does not see a Metal Casket Maker Random Glucose: 192 mg/dL HgA1C: 7.9% 06/18/2024 Allergies morphine (MORPHINE) Allergy (Intermediate, Verified 07/20/24 11:40) NAUSEA, rash oxycodone (From PERCOCET) Allergy (Intermediate, Verified 07/20/24 11:40) ITCHY, rash penicillin V Allergy (Intermediate, Verified 07/20/24 11:40) hives simvastatin Allergy (Intermediate, Verified 07/20/24 11:40) rash hydrocodone (From VICODIN) Allergy (Mild, Verified 07/20/24 11:40) RASH amoxicillin (Amoxicillin) Allergy (Unknown, Verified 07/20/24 11:40) UNKNOWN Medication List - Last Reconciled 08/17/24 by VIRI Murphy aspirin (Adult Low Dose Aspirin) 81 mg PO DAILY 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 sensor (FreeStyle Clare 3 Sensor device) apply new sensor every 14 days as directed 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,color receiver,cont (FreeStyle Clare 3 [place]) USE DIRECTED buspirone 5 mg PO ONCE fnovtmpeat-ucyqjukrkjivy-vzcn 50-325-40 mg 1 tab PO DAILY PRN clonazepam 1 mg PO TID clonidine HCl 0.2 mg PO DAILY cyanocobalamin (vitamin B-12) 1,000 mcg PO DAILY dextrose (TRUEplus Glucose) 15 grams (32 mL) PO Q15M PRN docusate sodium 100 mg PO DAILY empagliflozin (Jardiance) 25 mg PO DAILY gabapentin 400 mg (4 x 100 mg) PO BID glucose (Dex4 Glucose Quick Dissolve) 16 grams (4 x 4 gram) PO Q15M PRN insulin aspart U-100 (Novolog FlexPen U-100 Insulin aspart) 1 sliding scale dose subcut USEASDIRECTD insulin glargine-yfgn (Semglee (insulin glargine-yfgn) Pen) 60 units (0.6 mL) subcut DAILY meloxicam 7.5 mg PO DAILY mupirocin 2% 1 appl topical BID 7 days omeprazole 20 mg PO BID ondansetron 4 mg PO Q8H PRN pen needle, diabetic As directed daily with insulin pen four times daily. quetiapine (Seroquel) 1 tab PO BEDTIME quetiapine 1 tab PO BEDTIME rosuvastatin 10 mg PO .every other night 90 days tirzepatide (Mounjaro) 7.5 mg (0.5 mL) subcut QWEEK trazodone 2 tabs PO BEDTIME venlafaxine ER (Effexor XR) 300 mg PO DAILY HPI Comments Details: This is a 43-year-old female with a past medical history of type 2 diabetes, YAHIR, CVA, GERD, tobacco use, asthma, hyperlipidemia, hypertension and obesity presenting for diabetic management. She developed gestational diabetes 14 years ago and then type II diabetes. Reviewed Clare 3+ data from August 04 to August 17 CGM active 97% Average glucose 215 G AL 8.5% Glucose variability 31.1% Very high 27% High 38% Target range 35% 0% hypoglycemia She has a pattern of hyperglycemia in the evening and overnight. Pattern of hyperglycemia in the evening and overnight. She snacks at night. Hemoglobin A1c 06/18/2024 7.9%. Current medication regimen: Jardiance 25 mg, Novolog sliding scale, Lantus 60 units nightly and Mounjaro 5 mg weekly. Past medication: Metformin discontinued due to GI side effects. Ozempic switch to Mounjaro because she did not have weight loss on Ozempic 2 mg or achieve glycemic control on it. She was out of NovoLog for a couple of weeks, but she restarted it. Hypoglycemia symptoms: No episodes since decreasing Lantus. Hyperglycemia symptoms: Polyuria and polydipsia Eye exam: UTD Microvascular complications: neuropathy Macrovascular complications: Prior CVA Fib 4 score today 1.06. She has hyperlipidemia and hypertriglyceridemia. She is on atorvastatin 10 mg daily. Her triglyceride level decreased. Her heart rate was initially elevated. She says she has not had caffeine today. In reviewing her chart it looks like she has intermittent, mild tachycardia on and off for at least the past 4 years. Patient endorses feeling her heart racing sometimes and gets a little bit of dizziness with it. POC 192. Patient said she feels fine today, and when I rechecked her heart rate manually it was 104. Her blood pressure is also initially 154/84 and decreased to 142/74. At her prior visit it was 108/72. She is on clonidine but no other antihypertensives. ROS: Constitutional: No unexplained weight loss, fever, chills, fatigue or night swea ts. Eyes: No vision changes, blurry vision, double vision Respiratory: No shortness of breath Cardiovascular: No chest pain or pedal edema. See HPI Neurologic: No headache, dizziness, syncope, unilateral weakness, ataxia Endocrine: See HPI Physical exam: Constitutional: Alert, in no distress. Eyes: Pupils are equal, round and reactive to light. Extraocular muscles intact. Neck: Supple, Full range of motion. No palpable thyroid masses. Respiratory: Clear to auscultation. Cardiovascular: S1 S2 regular. No murmurs. [facility] Medical History (Updated 08/17/24 @ 12:39 by VIRI Murphy) Low vitamin B12 level Tachycardia Diabetes mellitus with hyperglycemia Sleep apnea Hypersomnia Right sided weakness [place] Bloating Difficulty swallowing Screening for hypothyroidism Contusion of right knee Burn Wound cellulitis Neck pain IBS (irritable bowel syndrome) GERD (gastroesophageal reflux disease) Crohn's disease Seizure disorder Tobacco abuse Asthma Hypercholesterolemia Hypertension Obesity (BMI 30-39.9) Anxiety and depression Type 2 diabetes mellitus with hyperglycemia, with long-term current use of insulin Migraine Panic disorder PTSD (post-traumatic stress disorder) OCD (obsessive compulsive disorder) Surgical History H/O bilateral breast reduction surgery H/O arthroscopy History of ankle surgery Previous section Family History Father CVD (cerebrovascular disease) Diabetes Hypertension Mother Depression Chronic mental illness Maternal Grandmother Myocardial infarction CVD (cerebrovascular disease) Breast cancer Maternal Aunt Liver cancer Family/Other PTSD (post-traumatic stress disorder) Migraines Asthma Other Mental health disorder Social History Housing: Apartment Alcohol intake: former Patient Tobacco Use Status: Current everyday Tobacco user Tobacco use type: Cigarette Cigarettes Per Day: 2 e-Cigarette/Vaping Use: Never Used Second Hand Smoke Exposure: Yes Substance Use Type: Marijuana service: No Current occupational status: unemployed Current occupation: left handed Cognitive needs: No Hearing needs: No Vision needs: Yes (glasses) Physical Exam Vital Signs: Last Vital Signs Pulse 113 H 08/17/24 11:27 BP 154/84 H 08/17/24 11:27 Pulse Ox 95 08/17/24 11:27 Oxygen Delivery Method Room Air 08/17/24 11:27 BMI result Body Mass Index 38.7 Office Procedures Glucose Monitoring Details Details: See HPI 44004 - Glucose monitoring, continuous-physician I&R Procedure code (CPT) selection complete Results Reviewed Results Reviewed: Laboratory Tests 04/16/23 08/13/24 08:37 08:44 Plt Count 331 Creatinine 0.57 Estimated GFR > 60 AST 25 ALT 9 Triglycerides 231 H Cholesterol 148 LDL Cholesterol, Calc 62 HDL Cholesterol 40 L Vitamin B12 199 L 205 TSH 1.76 Urine Creatinine 46.03 Urine Microalbumin 5.0 Microalb/Creat Ratio 10.8 Assessment & Plan Assessment & Plan (1) Type 2 diabetes mellitus with hyperglycemia, with long-term current use of insulin: Code(s): E11.65 - Type 2 diabetes mellitus with hyperglycemia; Z79.4 - prison (current) use of insulin Category: Medical Plan: In summary this is a 43 year old female with suboptimally controlled Type II DM with micro and macrovascular complications. Continue Lantus to 60 units nightly. Increase Mounjaro to 7.5 mg weekly. Continue Jardiance 25 mg daily. Novolog sliding scale If blood sugar is under 150 do not take Novolog. <150 no insulin 150-199 2 units 200-250 4 units 251-300 6 units 301-350 8 units 351-400 10 units >400 12 units If you experience low blood sugar, treat this by eating a chewable fruit candy like skittles or jelly beans (about 8 pieces), 4 ounces (1/2 cup) of fruit juice (not diet), 1 tablespoon of honey or 4 glucose tablets or 1 pack of glucose gel. If your blood sugar is under 55, take double the amount of one of the above. Recheck your blood sugar in [address] if you have symptoms of low blood sugar or do not have a reliable way to check your blood glucose. (2) Hypercholesterolemia: Code(s): E78.00 - Pure hypercholesterolemia, unspecified Category: Medical Plan: Continue Crestor. Triglycerides are moderately elevated. We discussed lifes tyle modifications. She needs to cut back on carbohydrates and sugars particularly at nighttime. She has increasing Mounjaro to help with this. Recommended regular exercise. Recommended starting fish oil, but she does not like the idea of taking this supplement. If triglycerides do not normalize we discussed increasing rosuvastatin or adding fenofibrate. (3) Hypertension: Code(s): I10 - Essential (primary) hypertension Category: Medical Qualifiers: Hypertension type: essential hypertension Qualified Code(s): I10 - Essential (primary) hypertension Plan: Recheck at next visit. Recommended low-sodium diet and avoidance of caffeine. If it remains elevated I will start her on a low-dose of losartan. (4) Tachycardia: Code(s): R00.0 - Tachycardia, unspecified Category: Medical Plan: Stay well hydrated. Avoid decongestants uvpx-quf-wzqyljk and caffeine. Advised patient to contact her primary care provider for evaluation and go to the ER if she has sustained palpitations or chest pain, shortness of breath or significant dizziness. (5) Low vitamin B12 level: Code(s): R79.89 - Other specified abnormal findings of blood chemistry Category: Medical Plan: Start vitamin B12 1000 mcg daily. Plan Follow up in 4 weeks for diabetes. Orders: Orders AMB Glucose Monitoring Today E11.9 - Type 2 diabetes mellitus without complications Medications: New cyanocobalamin (vitamin B-12) 1,000 mcg PO DAILY 90 caps 3RF tirzepatide (Mounjaro) 7.5 mg (0.5 mL) subcut QWEEK 2 mL 0RF Changed From insulin aspart U-100 (Novolog FlexPen U-100 Insulin aspart) according to sliding scale subcutaneously <150 0 units 150-199 2 units 200-250 4 units 251-300 6 units 301-350 8 units 351-400 10 units >400 12 units 1 sliding scale dose subcut USEASDIRECTD E11.65 - Type 2 diabetes mellitus with hyperglycemia, Z79.4 - termite renewal inspector (current) use of insulin To insulin aspart U-100 (Novolog FlexPen U-100 Insulin aspart) according to sliding scale subcutaneously three times daily with meals <150 0 units 150-199 2 units 200-250 4 units 251-300 6 units 301-350 8 units 351-400 10 units >400 12 units 1 sliding scale dose subcut USEASDIRECTD 15 mL 5RF E11.65 - Type 2 diabetes mellitus with hyperglycemia, Z79.4 - termite renewal inspector (current) use of insulin Discontinued tirzepatide (Mirta) Discontinued Reason: Duplicate 5 mg (0.5 mL) subcut QWEEK 2 mL 1RF Coding Level of Care Code Est Pt Level 4 (52908) Diagnoses Type 2 diabetes mellitus with hyperglycemia, with long-term current use of insulin E11.65; Z79.4 Hypercholesterolemia E78.00 Essential hypertension I10 Hypertension type: essential hypertension Tachycardia R00.0 Low vitamin B12 level R79.89 CPT Codes Details - CPT: 64511 - Glucose monitoring, continuous-physician I&R ([id number])
[2024-08-17 11:27] VITALS: BP 154/84; PULSE 113; O2SAT 95; BMI 38.7
[2024-08-17 11:34] LABS: Glucose, Whole Blood 192 mg/dL (60-115)
[2024-08-17 11:41] VITALS: BP 142/74; PULSE 104
--- OUTSIDE RECORDS SUMMARY | 2024-08-17 12:28 | XMS_ITS | Patient Health Record ---
Author Organization [facility] Address [address] [place] [address] Care Team Providers Care Well Digger Name Role Phone John Odonnell Primary Care Provider [phone] Reason For Referral No Information Medications Medication [...] drug interaction check* psychiatrist Dr. Terry at [facility] 07/18/2010 Active Plan Of Treatment No Information Insurance Providers Payer Name Payer Address Payer Phone Subscriber Number Group Number Insured Name Patient Relationship to Insured Coverage Start Date Coverage End Date MEDICARE B [address] [place] [id number] Darlene Godfrey Self - patient is the insured [id number] Medicaid [address] [place] [address] [phone] [id number] Darlene Godfrey Self - patient is the insured
--- OUTSIDE RECORDS SUMMARY | 2024-08-17 12:28 | XMS_ITS | Continuity of Care Document ---
Author Organization [facility] Address [address] [place] [address] Phone [phone] Care Team Providers Care Supervisor Paint Name Role Phone Tracy Delacruz NP Care Team Information Receive r [phone] Gurdeep Villarreal Care Team Information Airfield Defence Guard [phone] Problems Active Problems Provider Date Irritable bowel [...] day Heather Ashley M.D. 01/28/2023 Freestyle Clare 2/[place]/Flash Glucose Monitoring Roccnh0Eiumbh Device use as directed with sensors dx: e11.9 1units E11.9 Eduin Pina M.D. 01/28/2023 Freestyle Clare 2/Sensor/Flash Glucose Monitoring Lbjkzu1Mjzmsl Misc 1 sensor every 14 days Dx: e11.9 3units E11.9 Eduin Pina M.D. 01/28/2023 Quetiapine Bzlhnggs015qo Tablets Take 1 Tablet By Mouth Twice A Day as Needed Unknown Fvmnfumfbb965xn Capsules Take 4 Capsules By Mouth 2 Times A Day Po, Lorenver Drigpzkzad2us Tablets Take 2 Tablets By Mouth Daily And 1 Tablet AT Bedtime Unknown Venlafaxine HCL AX375hd Caps ER 24HR Take 2 Capsules By Mouth Every Day In The Morning Unknown Lantus Bktaxbbd131Fihv/ML Solution Pen-Inject 34 Unit (0.34 ML) Subcutaneously Every Evening Tracy Delacruz, THELMA Clonidine HCL0.2mg Tablets Take 1 Tablet By Mouth Everyday AT Bedtime Unknown Trazodone NRP94ln Tablets Take 1 To 2 Tablets By Mouth AT Bedtime as Needed Unknown Jvpmipfqx46mt Tablets Take 1 Tablet By Mouth Every Day Po, Lorenver Meloxicam7.5mg Tablets Take 1 Tablet Orally Daily Po, Lorenver Ihvwccoqup42qa Capsules DR Take 1 Capsule Orally Daily Po, Lorenver BD Pen Needle/Short/Ultra- Fine/31G X 8mm31G X 8 mm Misc as Directed Daily With Insulin Pen Po, Lorenver Quetiapine Njfbrzmz668el Tablets 1 tab by mouth every day [...]
== END 2024-08-17 12:04 | disposition home or self-care (01) ==
LOC: HO.ENCR 11:13
PROVIDERS: PCP Internal Medicine; Visit Provider Physician Assistant Medical
DX: E11.65 Type 2 diabetes mellitus with hyperglycemia (principal); Z79.4 Long term (current) use of insulin; E78.00 Pure hypercholesterolemia, unspecified; I10 Essential (primary) hypertension; R00.0 Tachycardia, unspecified; R79.89 Other specified abnormal findings of blood chemistry

== ENCOUNTER → 2024-08-17 11:13 | Outpatient (BNVA) | payer MEDICARE, MEDICAID, SELFPAY | PROVIDERS: PCP Internal Medicine; Visit Provider Physician Assistant Medical | DX: E11.65 Type 2 diabetes mellitus with hyperglycemia (principal); Z79.4 Long term (current) use of insulin | CPT/HCPCS: 82947; 99212 ==

== ENCOUNTER 2024-09-17 11:17 | Outpatient (AMB) | payer MEDICARE, MEDICAID, SELFPAY ==
--- OUTSIDE RECORDS SUMMARY | 2024-09-17 11:23 | XMS_ITS | Patient Health Record ---
Author Organization [facility] Address [address] [place] [address] Care Team Providers Care Marketing Teacher Name Role Phone John Odonnell Primary Care [...] drug interaction check* psychiatrist Dr. Terry at [facility] Psych[facility] 07/18/2010 Active Plan Of Treatment No Information Insurance Providers Payer Name Payer Address Payer Phone Subscriber Number Group Number Insured Name Patient Relationship to Insured Coverage Start Date Coverage End Date MEDICARE B [address] [place] [id number] Darlene Godfrey Self - patient is the insured [id number] Medicaid [address] [place] [address] [id number] Darlene Godfrey Self - patient is the insured
--- OUTSIDE RECORDS SUMMARY | 2024-09-17 11:23 | XMS_ITS | Continuity of Care Document ---
Author Organization [facility] Address [address] [place] [address] Phone [phone] Care Team Providers Care Electrical Engineering Teacher Name Role Phone Tracy Delacruz NP Care Team Information Receive r [phone] Gurdeep Villarreal Care Team Information Private Watchman [phone] Problems Active Problems Provider Date Irritable bowel [...] day Heather Ashley M.D. 01/28/2023 Freestyle Clare 2/[place]/Flash Glucose Monitoring Ealweu5Dnmokp Device use as directed with sensors dx: e11.9 1units E11.9 Eduin Pina M.D. 01/28/2023 Freestyle Clare 2/Sensor/Flash Glucose Monitoring Ucnrde4Fhtztx Misc 1 sensor every 14 days Dx: e11.9 3units E11.9 Eduin Pina M.D. 01/28/2023 Quetiapine Iaebutvz322qz Tablets Take 1 Tablet By Mouth Twice A Day as Needed Unknown Tjbpllbykr095ry Capsules Take 4 Capsules By Mouth 2 Times A Day Po, Lorenver Gmdbajaxst8jd Tablets Take 2 Tablets By Mouth Daily And 1 Tablet AT Bedtime Unknown Venlafaxine HCL NV204gh Caps ER 24HR Take 2 Capsules By Mouth Every Day In The Morning Unknown Lantus Nekpldfj302Dghw/ML Solution Pen-Inject 34 Unit (0.34 ML) Subcutaneously Every Evening Tracy Delacruz, THELMA Clonidine HCL0.2mg Tablets Take 1 Tablet By Mouth Everyday AT Bedtime Unknown Trazodone AVR44hu Tablets Take 1 To 2 Tablets By Mouth AT Bedtime as Needed Unknown Ferflfkbq98wm Tablets Take 1 Tablet By Mouth Every Day Po, Lorenver Meloxicam7.5mg Tablets Take 1 Tablet Orally Daily Po, Lorenver Ubjdoucdak91gx Capsules DR Take 1 Capsule Orally Daily Po, Lorenver BD Pen Needle/Short/Ultra- Fine/31G X 8mm31G X 8 mm Misc as Directed Daily With Insulin Pen Po, Lorenver Quetiapine Virwvhic672tj Tablets 1 tab by mouth every day [...]
[2024-09-17 11:29] VITALS: BP 90/64; PULSE 107; O2SAT 96; BMI 37.2
--- NOTE | 2024-09-17 11:29 | MHC.OFFVIS ---
Vital Signs 09/17/24 11:29 09/17/24 12:02 Height 5 ft 1 in Weight 196 lb 10.437 oz BMI 37.2 BP 90/64 106/74 Blood Pressure Location Lt brachial Position Sitting Pulse 107 H Pulse Source Pulse Oximeter Pulse Oximetry (%) 96 Oxygen Delivery Method Room Air Intake Visit Reasons: Type II diabetes Intake Note: Patient present today to follow up on Type 2 Diabetes Mellitus. Last Diabetic Eye exam: 06/2024 Last Podiatry Visit: Does not see a Tool Polisher Random Glucose: 123 mg/dL HgA1C: 7.7% Local Owner Operator Truck Driver Required: No Accompanied by: Self / Same As Patient Allergies morphine (MORPHINE) Allergy (Intermediate, Verified 09/17/24 11:34) NAUSEA, rash oxycodone (From PERCOCET) Allergy (Intermediate, Verified 09/17/24 11:34) ITCHY, rash penicillin V Allergy (Intermediate, Verified 09/17/24 11:34) hives simvastatin Allergy (Intermediate, Verified 09/17/24 11:34) rash hydrocodone (From VICODIN) Allergy (Mild, Verified 09/17/24 11:34) RASH amoxicillin (Amoxicillin) Allergy (Unknown, Verified 09/17/24 11:34) UNKNOWN Medication List - Last Reconciled 09/17/24 by VIRI Murphy aspirin (Adult Low Dose Aspirin) 81 mg PO DAILY 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 sensor (FreeStyle Clare 3 Sensor device) apply new sensor every 14 days as directed 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 sensor (FreeStyle Clare 3 Plus Sensor device) Apply 1 new sensor every 15 days as directed to monitor blood glucose continuously. 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,exchange architect,cont (FreeStyle Clare 3 [place]) USE DIRECTED buspirone 5 mg PO ONCE foqxssczvt-mgidrigalgudu-jvib 50-325-40 mg 1 tab PO DAILY PRN clonazepam 1 mg PO TID clonidine HCl 0.2 mg PO DAILY cyanocobalamin (vitamin B-12) 1,000 mcg PO DAILY dextrose (TRUEplus Glucose) 15 grams (32 mL) PO Q15M PRN docusate sodium 100 mg PO DAILY empagliflozin (Jardiance) 25 mg PO DAILY Fiasp FlexTouch U-100 Insulin 100 unit/mL (3 mL) (insulin aspart (niacinamide)) 1 sliding scale dose subcut USEASDIRECTD NS gabapentin 400 mg (4 x 100 mg) PO BID glucose (Dex4 Glucose Quick Dissolve) 16 grams (4 x 4 gram) PO Q15M PRN insulin glargine-yfgn (Semglee (insulin glargine-yfgn) Pen) 52 units (0.52 mL) subcut DAILY meloxicam 7.5 mg PO DAILY mupirocin 2% 1 appl topical BID 7 days omeprazole 20 mg PO BID ondansetron 4 mg PO Q8H PRN pen needle, diabetic As directed daily with insulin pen four times daily. quetiapine (Seroquel) 1 tab PO BEDTIME quetiapine 1 tab PO BEDTIME rosuvastatin 10 mg PO .every other night 90 days tirzepatide (Mounjaro) 10 mg (0.5 mL) subcut QWEEK trazodone 2 tabs PO BEDTIME venlafaxine ER (Effexor XR) 300 mg PO DAILY HPI Comments Details: This is a 43-year-old female with a past medical history of type 2 diabetes, YAHIR, CVA, GERD, tobacco use, asthma, hyperlipidemia, hypertension and obesity presenting for diabetic management. She developed gestational diabetes 14 years ago and then type II diabetes. I reviewed her Hypios Clare 3+ CGM active 97% G [place] 7.1% Very high 6% High 18% Target range 76% 0% hypoglycemia She has a pattern of hyperglycemia in the evening Hemoglobin A1c 06/18/2024 7.9%. Current medication regimen: Jardiance 25 mg, Novolog sliding scale, Lantus 60 units nightly and Mounjaro 7.5 mg weekly. Past medication: Metformin discontinued due to GI side effects. Ozempic switch to Mounjaro because she did not have weight loss on Ozempic 2 mg or achieve glycemic control on it. She has not been using NovoLog because her blood sugars have been good. Hypoglycemia symptoms: She had 1 low sugar around 70 in the last few days because she has not been feeling well. She has viral symptoms including a scratchy throat, congestion, cough, fatigue and decreased appetite. Reports with viral symptoms the last few days she also has mildly blurry vision but no headache, neck pain, loss of vision or eye pain. She was advised to go to urgent care or ED for evaluation, but she says that she is a little better today, and she is going to monitor her symptoms. If she develops worsening blurriness or eye pain or severe headache she will go to the ER. Hyperglycemia symptoms: Polyuria and polydipsia Eye exam: UTD Microvascular complications: neuropathy Macrovascular complications: Prior CVA Fib 4 score July 2024 1.06. She has hyperlipidemia and hypertriglyceridemia. She is on atorvastatin 10 mg every other day. ROS: Constitutional: No unexplained weight loss, fevers or chills. No night sweats. +fatigue Eyes: No double vision, eye pain, eye redness, eye discharge. No loss of vision. See HPI. ENT: + sneezing, scratchy throat, congestion, postnasal drip. No ear pain or hearing loss. No throat pain. Respiratory: +productive cough. No shortness a breath, wheezing or hemoptysis. Cardiovascular: No chest pain, chest pressure or chest discomfort. No palpitations or pedal edema. Gastrointestinal: No nausea, vomiting or diarrhea. No abdominal pain or blood in stool. Genitourinary: No dysuria, hematuria, urinary frequency. Neurologic: No headache, dizziness, syncope, unilateral weakness, ataxia, numbness or tingling in the extremities. Musculoskeletal: No body aches Physical exam: Constitutional: Alert, in no distress. Eyes: Pupils are equal, round and reactive to light. Extraocular muscles intact. Ear, Nose and Throat: Canals clear. TMs normal. Normal nasal mucosa. No nasal discharge. Throat mildly erythematous. No exudates or swelling. Neck: Supple, Full range of motion. No lymphadenopathy. No palpable thyroid masses. Respiratory: Clear to auscultation. Cardiovascular: S1 S2 regular. No murmurs. Neurologic: No focal neurological deficits. Extremities: Warm and well perfused. No clubbing, cyanosis or edema. Psychiatric: Normal mood and affect [facility] Medical History (Updated 08/17/24 @ 12:39 by VIRI Murphy) Low vitamin B12 level Tachycardia Diabetes mellitus with hyperglycemia Sleep apnea Hypersomnia Right sided weakness [place] Bloating Difficulty swallowing Screening for hypothyroidism Contusion of right knee Burn Wound cellulitis Neck pain IBS (irritable bowel syndrome) GERD (gastroesophageal reflux disease) Crohn's disease Seizure disorder Tobacco abuse Asthma Hypercholesterolemia Hypertension Obesity (BMI 30-39.9) Anxiety and depression Type 2 diabetes mellitus with hyperglycemia, with long-term current use of insulin Migraine Panic disorder PTSD (post-traumatic stress disorder) OCD (obsessive compulsive disorder) Surgical History H/O bilateral breast reduction surgery H/O arthroscopy History of ankle surgery Previous section Family History Father CVD (cerebrovascular disease) Diabetes Hypertension Mother Depression Chronic mental illness Maternal Grandmother Myocardial infarction CVD (cerebrovascular disease) Breast cancer Maternal Aunt Liver cancer Family/Other PTSD (post-traumatic stress disorder) Migraines Asthma Other Mental health disorder Social History Housing: Apartment Alcohol intake: former Patient Tobacco Use Status: Current everyday Tobacco user Tobacco use type: Cigarette Cigarettes Per Day: 2 e-Cigarette/Vaping Use: Never Used Second Hand Smoke Exposure: Yes Substance Use Type: Marijuana service: No Current occupational status: unemployed Current occupation: left handed Cognitive needs: No Hearing needs: No Vision needs: Yes (glasses) Physical Exam Vital Signs: Last Vital Signs Pulse 107 H 09/17/24 11:29 BP 106/74 09/17/24 12:02 Pulse Ox 96 09/17/24 11:29 Oxygen Delivery Method Room Air 09/17/24 11:29 BMI result Body Mass Index 37.2 Office Procedures Glucose Monitoring Details Details: See [facility] [address] - Glucose monitoring, continuous-physician I&R Procedure code (CPT) selection complete Results AMB Hemoglobin A1c AMB Hemoglobin A1c 7.7 % Last Edit by NASRIN Beaulieu on 09/17/24 11:47 Results Reviewed Results Reviewed: Laboratory Last Values Glucose (Clinic) 123 mg/dL (60-115) H 09/17/24 11:36 Hgb A1c (Clinic) 7.7 % (4.0-6.0) H 09/17/24 11:38 Laboratory Tests 04/16/23 08/13/24 08:37 08:44 Plt Count 331 Creatinine 0.57 Estimated GFR > 60 AST 25 ALT 9 Triglycerides 231 H Cholesterol 148 LDL Cholesterol, Calc 62 HDL Cholesterol 40 L Vitamin B12 199 L 205 TSH 1.76 Urine Creatinine 46.03 Urine Microalbumin 5.0 Microalb/Creat Ratio 10.8 Assessment & Plan Assessment & Plan (1) Type 2 diabetes mellitus with hyperglycemia, with long-term current use of insulin: Code(s): E11.65 - Type 2 diabetes mellitus with hyperglycemia; Z79.4 - terminal system operator (current) use of insulin Category: Medical Plan: In summary this is a 43 year old female with suboptimally controlled Type II DM with micro and macrovascular complications. Decrease Lantus to 52 units nightly. Increase Mounjaro to 10 mg weekly once viral symptoms resolve. Continue Jardiance 25 mg daily. Novolog sliding scale If blood sugar is under 150 do not take Novolog. <150 no insulin 150-199 2 units 200-250 4 units 251-300 6 units 301-350 8 units 351-400 10 units >400 12 units If you experience low blood sugar, treat this by eating a chewable fruit candy like skittles or jelly beans (about 8 pieces), 4 ounces (1/2 cup) of fruit juice (not diet), 1 tablespoon of honey or 4 glucose tablets or 1 pack of glucose gel. If your blood sugar is under 55, take double the amount of one of the above. Recheck your blood sugar in [address] if you have symptoms of low blood sugar or do not have a reliable way to check your blood glucose. (2) Hypercholesterolemia: Code(s): E78.00 - Pure hypercholesterolemia, unspecified Category: Medical Plan: Continue Crestor. Triglycerides are moderately elevated. We discussed lifestyle modifications. She needs to cut back on carbohydrates and sugars particularly at nighttime. She has increasing Mounjaro to help with this. Recommended regular exercise. Recommended starting fish oil, but she does not like the idea of taking this supplement. If triglycerides do not normalize we discussed increasing rosuvastatin or adding fenofibrate. Plan Follow up in 4 weeks for diabetes. Orders: Orders AMB Hemoglobin A1c Today E11.65 - Type 2 diabetes mellitus with hyperglycemia, Z13.9 - Encounter for screening, unspecified, Z79.4 - [facility] (current) use of insulin AMB Glucose Monitoring Today E11.9 - Type 2 diabetes mellitus without complications Medications: New tirzepatide (Mounjaro) 10 mg (0.5 mL) subcut QWEEK 2 mL 1RF Changed From insulin glargine-yfgn (Semglee (insulin glargine-yfgn) Pen) 60 units (0.6 mL) subcut DAILY 15 mL 5RF To insulin glargine-yfgn (Semglee (insulin glargine-yfgn) Pen) 52 units (0.52 mL) subcut DAILY 15 mL 5RF Refilled rosuvastatin 10 mg PO .every other night 45 tabs 5RF 90 days Discontinued insulin aspart U-100 (Novolog FlexPen U-100 Insulin aspart) according to sliding scale subcutaneously three times daily with meals <150 0 units 150-199 2 units 200-250 4 units 251-300 6 units 301-350 8 units 351-400 10 units >400 12 units Discontinued Reason: Doctor's Order 1 sliding scale dose subcut USEASDIRECTD 15 mL 5RF E11.65 - Type 2 diabetes mellitus with hyperglycemia, Z79.4 - [facility] (current) use of insulin tirzepatide (Mounjaro) Discontinued Reason: Doctor's Order 7.5 mg (0.5 mL) subcut QWEEK 2 mL 0RF Coding Level of Care Code Est Pt Level 4 (62167) Diagnoses Type 2 diabetes mellitus with hyperglycemia, with long-term current use of insulin E11.65; Z79.4 Hypercholesterolemia E78.00 CPT Codes Details - CPT: 62108 - Glucose monitoring, continuous-physician I&R ([id number])
[2024-09-17 11:40] LABS: Glucose, Whole Blood 123 mg/dL (60-115)
[2024-09-17 12:02] VITALS: BP 106/74
== END 2024-09-17 12:05 | disposition home or self-care (01) ==
LOC: HO.ENCR 11:18
PROVIDERS: PCP Internal Medicine; Visit Provider Physician Assistant Medical
DX: E11.65 Type 2 diabetes mellitus with hyperglycemia (principal); Z79.4 Long term (current) use of insulin; E78.00 Pure hypercholesterolemia, unspecified; Z13.9 Encounter for screening, unspecified

== ENCOUNTER → 2024-09-17 11:17 | Outpatient (BNVA) | payer MEDICARE, MEDICAID, SELFPAY | PROVIDERS: PCP Internal Medicine; Visit Provider Physician Assistant Medical | DX: E11.65 Type 2 diabetes mellitus with hyperglycemia (principal); Z79.4 Long term (current) use of insulin | CPT/HCPCS: 82947; 83036; 99212 ==

== ENCOUNTER 2024-10-19 15:20 | Outpatient (AMB) | payer MEDICARE, MEDICAID, SELFPAY ==
[2024-10-19 15:26] VITALS: BP 112/76; PULSE 108; O2SAT 94; BMI 37.8
--- NOTE | 2024-10-19 15:26 | A.OFFVIS_ITS ---
Vital Signs 10/19/24 15:26 Height 5 ft 1 in Weight 199 lb 15.348 oz BMI 37.8 BP 112/76 Blood Pressure Location Lt brachial Position Sitting Pulse 108 H Pulse Source Pulse Oximeter Pulse Oximetry (%) 94 Oxygen Delivery Method Room Air Intake Visit Reasons: Diabetes Type 2 Intake Note: Patient present today to follow up on Type 2 Diabetes Mellitus. Last Diabetic Eye exam: 06/2024 Last Podiatry Visit: Does not see a Rescue Instructor Random Glucose: 171 mg/dL HgA1C: 7.7% 09/17/2024 Coating Operator Required: No Accompanied by: Self / Same As Patient Allergies morphine (MORPHINE) Allergy (Intermediate, Verified 10/19/24 15:32) NAUSEA, rash oxycodone (From PERCOCET) Allergy (Intermediate, Verified 10/19/24 15:32) ITCHY, rash penicillin V Allergy (Intermediate, Verified 10/19/24 15:32) hives simvastatin Allergy (Intermediate, Verified 10/19/24 15:32) rash hydrocodone (From VICODIN) Allergy (Mild, Verified 10/19/24 15:32) RASH amoxicillin (Amoxicillin) Allergy (Unknown, Verified 10/19/24 15:32) UNKNOWN Medication List - Last Reconciled 10/19/24 by VIRI Murphy aspirin (Adult Low Dose Aspirin) 81 mg PO DAILY 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 sensor (BriefCamStyle Clare 3 Plus Sensor device) Apply 1 new sensor every 15 days as directed to monitor blood glucose continuously. 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,balloon pilot,cont (FreeStyle Clare 3 [place]) USE DIRECTED buspirone 5 mg PO ONCE ozgosgavgd-lbhchfyneeqmj-mkdo 50-325-40 mg 1 tab PO DAILY PRN clonazepam 1 mg PO TID clonidine HCl 0.2 mg PO DAILY cyanocobalamin (vitamin B-12) 1,000 mcg PO DAILY dextrose (TRUEplus Glucose) 15 grams (32 mL) PO Q15M PRN docusate sodium 100 mg PO DAILY empagliflozin (Jardiance) 25 mg PO DAILY gabapentin 400 mg (4 x 100 mg) PO BID glucose (Dex4 Glucose Quick Dissolve) 16 grams (4 x 4 gram) PO Q15M PRN insulin aspart (niacinamide) 100 unit/mL (3 mL) (Fiasp FlexTouch U-100 Insulin) 2 - 4 units subcut .before dinner insulin glargine-yfgn (Semglee (insulin glargine-yfgn) Pen) 48 - 52 units subcut DAILY meloxicam 7.5 mg PO DAILY mupirocin 2% 1 appl topical BID 7 days omeprazole 20 mg PO BID ondansetron 4 mg PO Q8H PRN pen needle, diabetic As directed daily with insulin pen four times daily. quetiapine (Seroquel) 1 tab PO BEDTIME quetiapine 1 tab PO BEDTIME rosuvastatin 10 mg PO .every other night 90 days tirzepatide (Mounjaro) 10 mg (0.5 mL) subcut QWEEK trazodone 2 tabs PO BEDTIME venlafaxine ER (Effexor XR) 300 mg PO DAILY HPI Comments Details: This is a 43-year-old female with a past medical history of type 2 diabetes, YAHIR, CVA, GERD, tobacco use, asthma, hyperlipidemia, hypertension and obesity presenting for diabetic management. She developed gestational diabetes 14 years ago and then type II diabetes. Reviewed Shake 3 data for the past 14 days CGM active 88% Average glucose 169 G IA 7.4% Very high 11% High 25% Target range 64% 0% hypoglycemia She has a pattern of postprandial hyperglycemia in the evening. Blood sugars are in target range the majority of the time during the day. Dinner is her largest meal, and she snacks after it. Hemoglobin A1c 7.7% 09/17/2024. Current medication regimen: Jardiance 25 mg, Fiasp sliding scale, Lantus 52 units nightly and Mounjaro 10 mg weekly. She has not taken mealtime insulin in the past month. Past medication: Metformin discontinued due to GI side effects. Ozempic switch to Mounjaro because she did not have weight loss on Ozempic 2 mg or achieve glycemic control on it. Hypoglycemia symptoms: BG 58 last week 11 am; BG 57 10 am - treated with glucose gel and checked for rise. She had nothing to eat since the night before at dinner. She stopped drinking coffee in the morning about a month ago. Eye exam: UTD Microvascular complications: neuropathy Macrovascular complications: Prior CVA Fib 4 score July 2024 1.06. She has hyperlipidemia and hypertriglyceridemia. She is on atorvastatin 10 mg every other day. ROS: Constitutional: No fevers or chills or unexplained weight loss Eyes: No vision changes Respiratory: No shortness of breath Cardiovascular: No chest pain Gastrointestinal: No anorexia, nausea, vomiting or diarrhea. No abdominal pain Neurologic: No syncope or numbness or tingling in the extremities Endocrine: No cold or heat intolerance. No polyuria or polydipsia. Physical exam: Constitutional: Alert, in no distress. Respiratory: Clear to auscultation. Cardiovascular: S1 S2 regular. No murmurs. Neurologic: No focal neurological deficits. Extremities: Warm and well perfused. No clubbing, cyanosis or edema. COUNTS INCLUDE 234 BEDS AT THE [facility] Medical History (Updated 08/17/24 @ 12:39 by VIRI Murphy) Low vitamin B12 level Tachycardia Diabetes mellitus with hyperglycemia Sleep apnea Hypersomnia Right sided weakness [place] Bloating Difficulty swallowing Screening for hypothyroidism Contusion of right knee Burn Wound cellulitis Neck pain IBS (irritable bowel syndrome) GERD (gastroesophageal reflux disease) Crohn's disease Seizure disorder Tobacco abuse Asthma Hypercholesterolemia Hypertension Obesity (BMI 30-39.9) Anxiety and depression Type 2 diabetes mellitus with hyperglycemia, with long-term current use of insulin Migraine Panic disorder PTSD (post-traumatic stress disorder) OCD (obsessive compulsive disorder) Surgical History H/O bilateral breast reduction surgery H/O arthroscopy History of ankle surgery Previous section Family History Father CVD (cerebrovascular disease) Diabetes Hypertension Mother Depression Chronic mental illness Maternal Grandmother Myocardial infarction CVD (cerebrovascular disease) Breast cancer Maternal Aunt Liver cancer Family/Other PTSD (post-traumatic stress disorder) Migraines Asthma Other Mental health disorder Social History Housing: Apartment Alcohol intake: former Patient Tobacco Use Status: Current everyday Tobacco user Tobacco use type: Cigarette Cigarettes Per Day: 2 e-Cigarette/Vaping Use: Never Used Second Hand Smoke Exposure: Yes Substance Use Type: Marijuana service: No Current occupational status: unemployed Current occupation: left handed Cognitive needs: No Hearing needs: No Vision needs: Yes (glasses) Physical Exam Vital Signs: Last Vital Signs Pulse 108 H 10/19/24 15:26 BP 112/76 09/02/25 15:26 Pulse Ox 94 10/19/24 15:26 Oxygen Delivery Method Room Air 10/19/24 15:26 BMI result Body Mass Index 37.8 Office Procedures Glucose Monitoring Details Details: See [facility] [address] - Glucose monitoring, continuous-physician I&R Procedure code (CPT) selection complete Results Reviewed Results Reviewed: Laboratory Last Values Glucose (Clinic) 171 mg/dL (60-115) H 10/19/24 15:36 Laboratory Tests 04/16/23 08/13/24 08:37 08:44 Plt Count 331 Creatinine 0.57 Estimated GFR > 60 AST 25 ALT 9 Triglycerides 231 H Cholesterol 148 LDL Cholesterol, Calc 62 HDL Cholesterol 40 L Vitamin B12 199 L 205 TSH 1.76 Urine Creatinine 46.03 Urine Microalbumin 5.0 Microalb/Creat Ratio 10.8 Assessment & Plan Assessment & Plan (1) Type 2 diabetes mellitus with hyperglycemia, with long-term current use of insulin: Code(s): E11.65 - Type 2 diabetes mellitus with hyperglycemia; Z79.4 - buttermaker continuous churn (current) use of insulin Category: Medical Plan: In summary this is a 43 year old female with suboptimally controlled Type II DM with micro and macrovascular complications. Continue Lantus 52 units nightly. If you don't plan to have breakfast decrease to 48 units. Please try to have breakfast or a glucerna shake in the morning to avoid low blood sugars. Continue Mounjaro to 10 mg weekly. Continue Jardiance 25 mg daily. Fiasp: If blood sugar is under 120 do not take this before dinner. 121 or higher for dinner take 2 units. If your blood sugar is still over 180 in the evening after dinner, increase to 4 units before dinner. Do not take this for other meals. If you experience low blood sugar, treat this by eating a chewable fruit candy like skittles or jelly beans (about 8 pieces), 4 ounces (1/2 cup) of fruit juice (not diet), 1 tablespoon of honey or 4 glucose tablets or 1 pack of glucose gel. If your blood sugar is under 50, take double the amount of one of the above. Recheck your blood sugar in [address] if you have symptoms of low blood sugar or do not have a reliable way to check your blood glucose. (2) Hypercholesterolemia: Code(s): E78.00 - Pure hypercholesterolemia, unspecified Category: Medical Plan: Continue Crestor. Triglycerides are moderately elevated. We discussed lifestyle modifications. She needs to cut back on carbohydrates and sugars particularly at nighttime. She has increasing Mounjaro to help with this. Recommended regular exercise. Recommended starting fish oil, but she does not like the idea of taking this supplement. If triglycerides do not normalize we discussed increasing rosuvastatin or adding fenofibrate. Plan Follow up in 4 weeks for diabetes. Orders: Orders AMB Glucose Monitoring Today VIRI Murphy E11.9 - Type 2 diabetes mellitus without complications Medications: Changed From insulin glargine-yfgn (Semglee (insulin glargine-yfgn) Pen) 52 units (0.52 mL) subcut DAILY 15 mL 5RF To insulin glargine-yfgn (Semglee (insulin glargine-yfgn) Pen) 48 - 52 units subcut DAILY VIRI Carmen-Timothy From Fiasp FlexTouch U-100 Insulin 100 unit/mL (3 mL) (insulin aspart (niacinamide)) according to sliding scale subcutaneously three times daily with meals <150 0 units 150-199 2 units 200-250 4 units 251-300 6 units 301-350 8 units 351-400 10 units >400 12 units Max total daily dose: 36 units 1 sliding scale dose subcut USEASDIRECTD 15 mL 5RF NS To insulin aspart (niacinamide) 100 unit/mL (3 mL) (Fiasp FlexTouch U-100 Insulin) 2 - 4 units subcut .before dinner VIRI Murphy Refilled tirzepatide (Mounjaro) 10 mg (0.5 mL) subcut QWEEK 2 mL 1RF VIRI Murphy Patient Instructions: Continue Lantus 52 units nightly. If you don't plan to have breakfast decrease to 48 units. Please try to have breakfast or a glucerna shake in the morning. Continue Mounjaro to 10 mg weekly Continue Jardiance 25 mg daily. Fiasp: If blood sugar is under 120 do not take this before dinner. 121 or higher for dinner take 2 units. If your blood sugar is still over 180 in the evening after dinner, increase to 4 units before dinner. Do not take this for other meals. If you experience low blood sugar, treat this by eating a chewable fruit candy like skittles or jelly beans (about 8 pieces), 4 ounces (1/2 cup) of fruit juice (not diet), 1 tablespoon of honey or 4 glucose tablets or 1 pack of glucose gel. If your blood sugar is under 50, take double the amount of one of the above. Recheck your blood sugar in [address] if you have symptoms of low blood sugar or do not have a reliable way to check your blood glucose. Coding Level of Care Code Est Pt Level 4 (69197) Diagnoses Type 2 diabetes mellitus with hyperglycemia, with long-term current use of insulin E11.65; Z79.4 Hypercholesterolemia E78.00 CPT Codes Details - CPT: 72497 - Glucose monitoring, continuous-physician I&R ([id number])
[2024-10-19 15:42] LABS: Glucose, Whole Blood 171 mg/dL (60-115)
--- OUTSIDE RECORDS SUMMARY | 2024-10-19 16:27 | XMS_ITS | Continuity of Care Document ---
Author Organization [facility] Address [address] [place] [address] Phone [phone] Care Team Providers Care Food Inspector Name Role Phone Tracy Delacruz NP Care Team Information Receive r [phone] Gurdeep Villarreal Care Team Information Desolderer [phone] Problems Active Problems Provider Date Irritable bowel [...] day Heather Ashley M.D. 01/28/2023 Freestyle Clare 2/[place]/Flash Glucose Monitoring Cssngl1Nbkjyo Device use as directed with sensors dx: e11.9 1units E11.9 Eduin Pina M.D. 01/28/2023 Freestyle Clare 2/Sensor/Flash Glucose Monitoring Eehtek7Sarjcp Misc 1 sensor every 14 days Dx: e11.9 3units E11.9 Eduin Pina M.D. 01/28/2023 Quetiapine Pqyksthf315mx Tablets Take 1 Tablet By Mouth Twice A Day as Needed Unknown Poqiyaprdy242uz Capsules Take 4 Capsules By Mouth 2 Times A Day Po, Lorenver Xjlsilphdo2zc Tablets Take 2 Tablets By Mouth Daily And 1 Tablet AT Bedtime Unknown Venlafaxine HCL [id number] Caps ER 24HR Take 2 Capsules By Mouth Every Day In The Morning Unknown Lantus Pkpwkhzt330Uyog/ML Solution Pen-Inject 34 Unit (0.34 ML) Subcutaneously Every Evening Tracy Delacruz, THELMA Clonidine HCL0.2mg Tablets Take 1 Tablet By Mouth Everyday AT Bedtime Unknown Trazodone CJO76ob Tablets Take 1 To 2 Tablets By Mouth AT Bedtime as Needed Unknown Yvqiieehr94sn Tablets Take 1 Tablet By Mouth Every Day Po, Lorenver Meloxicam7.5mg Tablets Take 1 Tablet Orally Daily Po, Lorenver Zchdzrdwss89up Capsules DR Take 1 Capsule Orally Daily Po, Lorenver BD Pen Needle/Short/Ultra- Fine/31G X 8mm31G X 8 mm Misc as Directed Daily With Insulin Pen Po, Lorenver Quetiapine Ukewwbwr633fj Tablets 1 tab by mouth every day [...]
== END 2024-10-19 16:06 | disposition home or self-care (01) ==
LOC: HO.ENCR 15:21
PROVIDERS: PCP Internal Medicine; Visit Provider Physician Assistant Medical
DX: E11.65 Type 2 diabetes mellitus with hyperglycemia (principal); Z79.4 Long term (current) use of insulin; E78.00 Pure hypercholesterolemia, unspecified

== ENCOUNTER → 2024-10-19 15:20 | Outpatient (BNVA) | payer MEDICARE, MEDICAID, SELFPAY | PROVIDERS: PCP Internal Medicine; Visit Provider Physician Assistant Medical | DX: E11.65 Type 2 diabetes mellitus with hyperglycemia (principal); E78.00 Pure hypercholesterolemia, unspecified; Z79.4 Long term (current) use of insulin | CPT/HCPCS: 82947; 99212 ==

== ENCOUNTER 2024-10-22 13:34 | Outpatient (AMB) | payer MEDICARE, MEDICAID, SELFPAY ==
[2024-10-22 13:41] VITALS: BP 134/92; PULSE 122; O2SAT 96; BMI 36.8
--- NOTE | 2024-10-22 13:41 | MHC.PC.OV ---
Vital Signs 10/22/24 13:41 10/22/24 14:05 Height 5 ft 1 in Weight 195 lb BMI 36.8 BP 134/92 H 120/70 Blood Pressure Location Lt brachial Lt brachial Position Sitting Sitting Pulse 122 H Pulse Source Pulse Oximeter Pulse Oximetry (%) 96 Oxygen Delivery Method Room Air Intake Visit Reasons: annual exam Allergies morphine (MORPHINE) Allergy (Intermediate, Verified 10/22/24 13:42) NAUSEA, rash oxycodone (From PERCOCET) Allergy (Intermediate, Verified 10/22/24 13:42) ITCHY, rash penicillin V Allergy (Intermediate, Verified 10/22/24 13:42) hives simvastatin Allergy (Intermediate, Verified 10/22/24 13:42) rash hydrocodone (From VICODIN) Allergy (Mild, Verified 10/22/24 13:42) RASH amoxicillin (Amoxicillin) Allergy (Unknown, Verified 10/22/24 13:42) UNKNOWN Medication List - Last Reconciled 10/22/24 by Gurdeep Villarreal MD 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 sensor ([place] Clare 3 Plus Sensor device) Apply 1 new sensor every 15 days as directed to monitor blood glucose continuously. 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,consulting actuary,cont (FreeStyle Clare 3 [place]) USE DIRECTED buspirone 5 mg PO ONCE yieelfktyk-yqiybuhbbaomk-xrar 50-325-40 mg 1 tab PO DAILY PRN clonazepam 1 mg PO TID clonidine HCl 0.2 mg PO DAILY dextrose (TRUEplus Glucose) 15 grams (32 mL) PO Q15M PRN docusate sodium 100 mg PO DAILY empagliflozin (Jardiance) 25 mg PO DAILY gabapentin 400 mg (4 x 100 mg) PO BID insulin aspart (niacinamide) 100 unit/mL (3 mL) (Fiasp FlexTouch U-100 Insulin) 2 - 4 units subcut .before dinner insulin glargine-yfgn (Semglee (insulin glargine-yfgn) Pen) 48 - 52 units subcut DAILY omeprazole 20 mg PO BID pen needle, diabetic As directed daily with insulin pen four times daily. quetiapine (Seroquel) 1 tab PO BEDTIME quetiapine 1 tab PO BEDTIME rosuvastatin 10 mg PO .every other night 90 days tirzepatide (Mounjaro) 10 mg (0.5 mL) subcut QWEEK trazodone 2 tabs PO BEDTIME venlafaxine ER (Effexor XR) 300 mg PO DAILY Tobacco use date assessed: 04/15/23 Dental Screening Dental Screen Date: 04/15/23 [facility] Medical History (Updated 10/22/24 @ 14:15 by Gurdeep Villarreal MD) Low vitamin B12 level Tachycardia Diabetes mellitus with hyperglycemia Sleep apnea Hypersomnia Right sided weakness [place] Bloating Difficulty swallowing Screening for hypothyroidism Contusion of right knee Burn Wound cellulitis Neck pain IBS (irritable bowel syndrome) GERD (gastroesophageal reflux disease) Crohn's disease Seizure disorder Tobacco abuse Asthma Hypercholesterolemia Hypertension Obesity (BMI 30-39.9) Anxiety and depression Type 2 diabetes mellitus with hyperglycemia, with long-term current use of insulin Migraine Panic disorder PTSD (post-traumatic stress disorder) OCD (obsessive compulsive disorder) Surgical History H/O bilateral breast reduction surgery H/O arthroscopy History of ankle surgery Previous section Family History (Updated 10/22/24 @ 14:08 by Gurdeep Villarreal MD) Father CVD (cerebrovascular disease) Diabetes Hypertension Mother Depression Chronic mental illness Skin cancer Maternal Grandmother Myocardial infarction CVD (cerebrovascular disease) Breast cancer Maternal Aunt Liver cancer Skin cancer Family/Other PTSD (post-traumatic stress disorder) Migraines Asthma Other Mental health disorder Social History (Updated 10/22/24 @ 14:09 by Gurdeep Villarreal MD) Housing: Apartment Alcohol intake: former Patient Tobacco Use Status: Current everyday Tobacco user Tobacco use type: Cigarette Cigarettes Per Day: 5 Years Smoked: 10/2024) e-Cigarette/Vaping Use: Never Used Second Hand Smoke Exposure: Yes Substance Use Type: Marijuana service: No Current occupational status: unemployed Current occupation: left handed Cognitive needs: No Hearing needs: No Vision needs: Yes (glasses) Questionnaire PHQ-9 Over the last 2 weeks, how often have you been bothered by any of the following problems? 1. Little interest or pleasure in doing things: not at all 2. Feeling down, depressed, or hopeless: not at all 3. Trouble falling or staying asleep, or sleeping too much: not at all 4. Feeling tired or having little energy: not at all 5. Poor appetite or overeating: not at all 6. Feeling bad about yourself - or that you are a failure or have let yourself or your family down: not at all 7. Trouble concentrating on things, such as reading the newspaper or watching television: not at all 8. Moving or speaking so slowly that other people could have noticed. Or the opposite - being so fidgety or restless that you have been moving around a lot more than usual: not at all 9. Thoughts that you would be better off or of hurting yourself in some way: not at all Total score: 0 Depression Screening Interpretation: Negative Depression Screening Done: Yes Source: Developed by Drs. Huang Ellis, Marixa Oneal, Omero Bland and colleagues, with an educational blair from [email or web address]. Thrive Questionnaire Date Thrive assessed: 10/22/24 I am a: Patient What is your living situation today?: I have a steady place to live Within the past 12 months, did the food you bought not last and you didn't have the money to get more?: I choose not to answer this question Within the past 12 months, did you worry whether your food would run out before you got money to buy more?: I choose not to answer this question Do you have trouble paying for medicines?: Yes Do you have trouble getting transportation to medical appointments?: No Do you have trouble paying your heating and electricity bill?: No Do you have trouble taking care of your child, family member or friend?: No Do you have trouble with day-to-day activities such as bathing, preparing meals, shopping, managing finances, etc.?: I choose not to answer this question Are you currently unemployed and looking for a job?: I choose not to answer this question Are you interested in more education?: I choose not to answer this question Please select the resources that you would like help with: None Currently or been in a relationship where the following occur: I choose not to answer THRIVE Score: 0 AUDIT C Alcohol Use Questionnaire (AUDIT-C) 1. How often do you have a drink containing alcohol?: Never 3. How often do you have six or more drinks on one occasion?: Never Total Score: 0 LANE-[address] L[address]-7 Date LANE - 7 assessed: 10/22/24 Feeling nervous, anxious, or on edge: 3 = Nearly every day Not being able to stop or control worryin = More than half the days Worrying too much about different things: 1 = Several days Trouble relaxin = Several days Being so restless that it is hard to sit still: 3 = Nearly every day Becoming easily annoyed or irritable: 0 = Not at all Feeling afraid as if something awful might happen: 0 = Not at all Total LANE-7 score (0-4 normal; 5-9 mild; 10-14 moderate; 15-21 severe): 10 Source: Developed by Drs. Huang Ellis, Marixa Oneal, Omero Bland and colleagues, with an educational blair from [email or web address]. LANE-[address] L[address]-7 Assessment Tool: LANE-7 Assessment 32011 Review of Systems Const Denies poor appetite and Denies weakness Eyes Denies no additional complaints ENT Reports Normal hearing present, Denies dizziness, Denies nasal congestion, Denies tinnitus and Denies sore throat Card Denies chest pain, Denies syncope, Denies rapid heart rate and Denies dyspnea Resp Denies cough and Denies dyspnea GI Denies change in stool character, Reports constipation, Denies diarrhea, Denies nausea and Denies vomiting Denies urinary frequency, Denies difficulty voiding and Denies dysuria Neuro Reports Normal hearing present, Denies confusion, Denies dizziness, Denies syncope and Denies weakness Psych Denies confusion Physical exam (Primary Care) Vital Signs: Last Vital Signs Pulse 122 H 10/22/24 13:41 BP 120/70 10/22/24 14:05 Pulse Ox 96 10/22/24 13:41 Oxygen Delivery Method Room Air 10/22/24 13:41 BMI result Body Mass Index 36.8 Tobacco/Smoking Status: Tobacco use Status Tobacco use date assessed 04/15/23 10/22/24 13:51 Patient Tobacco Use Status Current everyday Tobacco 10/22/24 14:09 Tobacco use type Cigarette 10/22/24 14:09 e-Cigarette/Vaping Use Never Used 10/22/24 14:09 PHQ-9: PHQ-9 Score PHQ-9: Total score 0 10/22/24 14:03 Depression Screening Interpretation: Negative Thrive Assessment: Date of Thrive Assessment Date Thrive assessed 10/22/24 10/22/24 13:51 Currently or been in a relationship where the following occur: I choose not to answer Const Other: pedal pulse ad pin prick good General: No confusion Orientation/consciousness: No confusion HENMT Head: Yes normocephalic Ears: external ears normal and TM's normal bilaterally Face and sinus: Yes normal facial exam Mouth: moist mucous membranes Throat: Yes tonsils normal Eyes Conjunctivae: conjunctivae normal Pupils: Equal, round and reactive pupils present and Pupil accommodation reflex normal Direct Ophthalmoscopy: normal light reflex Neck Neck: No lymphadenopathy Thyroid: Thyroid normal Chest Chest palpation & inspection: normal inspection of the chest Chest/axillae images:  1. 04:00 1 cm polypoid mass no redness Resp Effort & Inspection: normal respiratory effort and no audible wheezes Auscultation: clear to auscultation bilaterally, no crackles, no wheezes and lung sounds not diminished Cardio Rate: regular rate Rhythm: regular rhythm Peripheral pulses: radial pulses present and dorsalis pedis present GI Palpation (GI): no masses Auscultation: normal bowel sounds and normoactive bowel sounds Rectal Exam - Female: deferred Skin General skin exam: no rashes or lesions noted Rashes: no rashes Neuro General: No confusion Cranial nerves: Yes Equal, round and reactive pupils present and Yes Normal hearing present Cognition (Neuro): normal cognition Gait exam (Neuro): Normal gait present Motor exam (neuro): 5/5 motor strength present throughout Deep tendon reflexes (DTR's): Right brachioradialis reflex intensity grade: 2+, Left brachioradialis reflex intensity grade: 2+, Right patellar reflex intensity grade: 2+ and Left patellar reflex intensity grade: 2+ Extrem General: No edema Coding Level of Care Code Est Pt Prev Care 40-64y(19428) Diagnoses Annual physical exam Z00.00 Tobacco abuse Z72.0 CVA (cerebral vascular accident) I63.9 YAHIR (obstructive sleep apnea) G47.33 Migraine G43.909 Diabetes mellitus with hyperglycemia E11.65 Hypercholesterolemia E78.00 Essential hypertension I10 Hypertension type: essential hypertension GERD (gastroesophageal reflux disease) K21.9 Mild intermittent asthma without complication J45.20 Asthma complication type: uncomplicated Asthma persistence: intermittent Asthma severity: mild Breast cancer screening by mammogram Z12.31 Breast mass, right N63.[address] L[address]-7 Assessment Billing - LANE-7 Assessment Tool: LANE-7 Assessment 69880 ([id number]) Assessment & Plan Assessment & Plan (1) Annual physical exam: Code(s): Z00.00 - Encounter for general adult medical examination without abnormal findings Category: Medical Plan: Patient is advised to eat healthy, keep well hydrated, keep active and have adequate sleep. (2) Tobacco abuse: Code(s): Z72.0 - Tobacco use Category: Medical Plan: Patient is advised to stop smoking (3) CVA (cerebral vascular accident): Comment: August 2021 right-sided weakness Code(s): I63.9 - Cerebral infarction, unspecified Category: Medical Plan: Control the cholesterol, weight, blood pressure, diabetes. (4) YAHIR (obstructive sleep apnea): Comment: Severe degree of YAHIR. The total AHI was 41/hr and oxygen valdemar was 75%. Code(s): G47.33 - Obstructive sleep apnea (adult) (pediatric) Category: Medical Plan: Discussed about treating with CPAP. (5) Migraine: Code(s): G43.909 - Migraine, unspecified, not intractable, without status migrainosus Category: Medical Plan: Patient is advised to eat healthy, keep well hydrated, keep active and have adequate sleep. (6) Diabetes mellitus with hyperglycemia: Code(s): E11.65 - Type 2 diabetes mellitus with hyperglycemia Category: Medical Plan: Decrease the amount of carbohydrate intake, pasta, bread, rice and potatoes are all sugar and that is aside from all the sweet stuff, remember that fruits are good but they are Sweet also. Patient follows up with endocrinology on Jardiance insulin long-acting and short-acting Mounjaro 10 mg once a week (7) Hypercholesterolemia: Code(s): E78.00 - Pure hypercholesterolemia, unspecified Category: Medical Plan: Avoid fried foods, chicken skin, eggs, butter margarine, pastries and meat. Be it pork or beef they have a lot of cholesterol LDL goal of less than 70 and triglyceride of less than 150 patient is on rosuvastatin 10 mg once a day (8) Hypertension: Code(s): I10 - Essential (primary) hypertension Category: Medical Qualifiers: Hypertension type: essential hypertension Qualified Code(s): I10 - Essential (primary) hypertension Plan: Continue with blood pressure medication. Decrease salt intake and exercise patient on clonidine only (9) GERD (gastroesophageal reflux disease): Code(s): K21.9 - Gastro-esophageal reflux disease without esophagitis Category: Medical Plan: Avoid the foods that causes that usually spicy foods, tomato products, juices, coffee, soda and foods that your sensitive to. After eating do not lie down, allow 3-4 hours before in lie down. And keep the head of bed above 30 degrees to avoid the acid from going up. (10) Asthma: Code(s): J45.909 - Unspecified asthma, uncomplicated Category: Medical Qualifiers: Asthma complication type: uncomplicated Asthma persistence: intermittent Asthma severity: mild Qualified Code(s): J45.20 - Mild intermittent asthma, uncomplicated Plan: Patient is strongly advised to stop smoking! (11) Breast cancer screening by mammogram: Code(s): Z12.31 - Encounter for screening mammogram for malignant neoplasm of breast Category: Medical (12) Breast mass, right: Comment: 4 oclock mass 1 cm Code(s): N63.10 - Unspecified lump in the right breast, unspecified quadrant Category: Medical Plan History of Present Illness The patient is a 43-year-old female presenting for a physical examination and management of chronic conditions. The patient has a history of diabetes mellitus, which is currently managed with insulin and oral medications including Jardiance and Mounjaro. She experiences episodes of hypoglycemia, with blood sugar levels dropping to 57 and 58, occurring approximately once a day. The patient uses a continuous glucose monitor to track her blood sugar levels. Hypertension is another chronic condition for which the patient is being treated with clonidine. Her blood pressure was recorded at 120/70 mmHg during the visit, which is considered satisfactory. The patient has hypercholesterolemia and is on rosuvastatin therapy. Her cholesterol levels were last checked in July 2024, with LDL cholesterol at 62 mg/dL and triglycerides mildly elevated. The patient has a history of asthma and uses albuterol as needed. The patient reports a history of gastroesophageal reflux disease (GERD) and is currently taking omeprazole twice daily for management. The patient has a history of cerebrovascular accident with right-sided weakness, which occurred in 2021. She has been following up with neurology and is on migraine prophylaxis with Emgality. The patient has infections in her fingers, resulting in nail loss, which she attributes to high pulse rates. A lump was noted in the right breast during the physical examination, and a mammogram has been scheduled for further evaluation. Health Maintenance - Mammogram screening scheduled for breast lump evaluation - Continuous glucose monitoring for diabetes management - Smoking cessation strongly advised - Regular follow-up with endocrinology for diabetes management Social History - Smoking: Patient smokes five cigarettes a day and has been advised to quit. - Substance Use: Patient uses marijuana, both smoking and edibles, primarily for headache relief. Review of Systems - Cardiovascular: Reports high pulse rate, denies chest pain. - Dermatological: Reports infections in fingers with nail loss. - Endocrine: Reports episodes of hypoglycemia. - Neurological: Reports right-sided weakness, denies new headaches. - Respiratory: Denies dyspnea or wheezing. Physical Exam General: Cooperative, obese female, comfortable, no acute distress Orientation: Patient oriented x3 Limitations: Right-sided weakness Head: Normal to inspection Ears: Hearing grossly normal bilaterally, slight redness noted Nose: Normal external nose present Face and sinus: Normal facial exam Eyes: Appearance normal, both eyes and all related structures, requires bifocals Neck: Normal visual inspection and Yes full ROM Respiratory: Normal respiratory effort and able to speak in complete sentences. Clear to auscultation bilaterally Cardiovascular: Regular rate and rhythm. Normal S1 and S2 GI: Normal to inspection. Soft to palpation and nontender, slight discomfort noted Skin: Infections in fingers, lost nails, redness noted Neuro: Patient oriented x3, right-sided weakness Extremities: Normal to inspection, toe infection noted due to dog stepping and hoverboard incident, lost nails on foot Results - Labs: Last A1c was 7.7% in September - Labs: LDL cholesterol was 62 mg/dL, triglycerides mildly elevated in July 2024 Plan Patient was informed and verbally consented to the use of an ambient scribe for clinic note documentation during this visit. 1. Diabetes Mellitus The patient is advised to continue with her current diabetes management plan, which includes the use of insulin, Jardiance, and Mounjaro. She should monitor her blood glucose levels closely using her continuous glucose monitor and report any episodes of hypoglycemia to her alfalfa dehydrator operator. Adjustments to her insulin regimen may be necessary to prevent low blood sugar episodes. 2. Hypertension The patient's blood pressure is currently well-controlled with clonidine, and no changes to her antihypertensive regimen are necessary at this time. 3. Hypercholesterolemia The patient is advised to continue taking rosuvastatin to manage her cholesterol levels. Her LDL cholesterol is well-controlled, but triglycerides are mildly elevated, which may require dietary modifications. 4. Asthma The patient should continue using albuterol as needed for asthma symptoms. 5. Gastroesophageal Reflux Disease (Gerd) The patient is advised to continue taking omeprazole twice daily for GERD management. 6. History Of Cerebrovascular Accident With Right-Sided Weakness The patient should continue her follow-up with neurology and maintain her current migraine prophylaxis regimen with Emgality. 7. Infections In Fingers With Nail Loss The patient should monitor the infections in her fingers and seek medical attention if they worsen or do not improve. 8. Breast Lump A mammogram has been scheduled to further evaluate the lump in the right breast. Discussion Notes During the visit, I discussed the importance of managing diabetes with the patient, emphasizing the need to monitor blood glucose levels and report any hypoglycemic episodes to her alfalfa dehydrator operator. We also reviewed her hypertension management, confirming that her current regimen is effective. I advised the patient to continue her cholesterol management with rosuvastatin and to consider dietary changes to address mildly elevated triglycerides. We discussed the need for a mammogram to evaluate the breast lump and the importance of regular follow-ups with her healthcare providers. Patient Instructions - Continue current diabetes medications and monitor blood sugar levels closely. - Report any hypoglycemic episodes to your alfalfa dehydrator operator. - Maintain your current blood pressure medication regimen. - Continue taking rosuvastatin and consider dietary changes for cholesterol management. - Use albuterol as needed for asthma symptoms. - Continue omeprazole for GERD management. - Monitor finger infections and seek medical attention if they worsen. - Attend scheduled mammogram for breast lump evaluation. - Strongly consider quitting smoking. Orders: Orders MM diagnostic mammo BI Today N63.10 - Unspecified lump in the right breast, unspecified quadrant US breast RT limited Today N63.10 - Unspecified lump in the right breast, unspecified quadrant
--- OUTSIDE RECORDS SUMMARY | 2024-10-22 13:55 | XMS_ITS | Continuity of Care Document ---
Author Organization [facility] Address [address] [place] [address] Phone [phone] Care Team Providers Care Credit Advisor Name Role Phone Tracy Delacruz NP Care Team Information Receive r [phone] Gurdeep Villarreal Care Team Information Bottom Precipitator Operator [phone] Problems Active Problems Provider Date Irritable bowel [...] day Heather Ashley M.D. 01/28/2023 Freestyle Clare 2/[place]/Flash Glucose Monitoring Lgcyjz5Clkiyd Device use as directed with sensors dx: e11.9 1units E11.9 Eduin Pina M.D. 01/28/2023 Freestyle Clare 2/Sensor/Flash Glucose Monitoring Tkfcoy2Ztthog Misc 1 sensor every 14 days Dx: e11.9 3units E11.9 Eduin Pina M.D. 01/28/2023 Quetiapine Ukvsgwrx375fw Tablets Take 1 Tablet By Mouth Twice A Day as Needed Unknown Yganbfrgah143lf Capsules Take 4 Capsules By Mouth 2 Times A Day Po, Lorenver Jkjdpnenjx4pm Tablets Take 2 Tablets By Mouth Daily And 1 Tablet AT Bedtime Unknown Venlafaxine HCL WJ128hr Caps ER 24HR Take 2 Capsules By Mouth Every Day In The Morning Unknown Lantus Tfgvdhiu068Rosa/ML Solution Pen-Inject 34 Unit (0.34 ML) Subcutaneously Every Evening Tracy Delacruz, THELMA Clonidine HCL0.2mg Tablets Take 1 Tablet By Mouth Everyday AT Bedtime Unknown Trazodone AZJ39xg Tablets Take 1 To 2 Tablets By Mouth AT Bedtime as Needed Unknown Zymcvcttc33yl Tablets Take 1 Tablet By Mouth Every Day Po, Lorenver Meloxicam7.5mg Tablets Take 1 Tablet Orally Daily Po, Lorenver Ietavjwqsx29fx Capsules DR Take 1 Capsule Orally Daily Po, Lorenver BD Pen Needle/Short/Ultra- Fine/31G X 8mm31G X 8 mm Misc as Directed Daily With Insulin Pen Po, Lorenver Quetiapine Jvmhxsxc492yo Tablets 1 tab by mouth every day [...]
--- OUTSIDE RECORDS SUMMARY | 2024-10-22 13:55 | XMS_ITS | Patient Health Record ---
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 Terry at [facility] 07/18/2010 Active Plan Of Treatment No Information Insurance Providers Payer Name Payer Address Payer Phone Subscriber Number Group Number Insured Name Patient Relationship to Insured Coverage Start Date Coverage End Date MEDICARE B [address] [place] [id number] Darlene Godfrey Self - patient is the insured [place] Medicaid [address] [place] [address] [id number] Darlene Godfrey Self - patient is the insured
[2024-10-22 14:05] VITALS: BP 120/70
== END 2024-10-22 15:06 | disposition home or self-care (01) ==
LOC: HO.HMCH 13:35
PROVIDERS: PCP Internal Medicine; Visit Provider Internal Medicine
DX: Z00.00 Encounter for general adult medical examination without abnormal findings (principal); I63.9 Cerebral infarction, unspecified; E11.65 Type 2 diabetes mellitus with hyperglycemia; Z72.0 Tobacco use; G47.33 Obstructive sleep apnea (adult) (pediatric); G43.909 Migraine, unspecified, not intractable, without status migrainosus; E78.00 Pure hypercholesterolemia, unspecified; I10 Essential (primary) hypertension; K21.9 Gastro-esophageal reflux disease without esophagitis; J45.20 Mild intermittent asthma, uncomplicated; Z12.31 Encounter for screening mammogram for malignant neoplasm of breast; N63.10 Unspecified lump in the right breast, unspecified quadrant

== ENCOUNTER → 2024-10-22 13:34 | Outpatient (BNVA) | payer MEDICARE, MEDICAID, SELFPAY | PROVIDERS: PCP Internal Medicine; Visit Provider Internal Medicine | DX: Z00.00 Encounter for general adult medical examination without abnormal findings (principal); G47.33 Obstructive sleep apnea (adult) (pediatric); G43.909 Migraine, unspecified, not intractable, without status migrainosus; E11.65 Type 2 diabetes mellitus with hyperglycemia; E78.00 Pure hypercholesterolemia, unspecified; I10 Essential (primary) hypertension; K21.9 Gastro-esophageal reflux disease without esophagitis; J45.20 Mild intermittent asthma, uncomplicated; N63.10 Unspecified lump in the right breast, unspecified quadrant; Z86.73 Personal history of transient ischemic attack (TIA), and cerebral infarction without residual deficits | CPT/HCPCS: 96127; 99396 ==

== ENCOUNTER 2024-11-19 09:22 | Outpatient (AMB) | payer MEDICARE, MEDICAID, SELFPAY ==
--- NOTE | 2024-11-19 09:30 | MHC.OFFVIS ---
Vital Signs 11/19/24 09:33 Height 5 ft 1 in Weight 194 lb 0.108 oz BMI 36.7 BP 134/76 Blood Pressure Location Lt brachial Position Sitting Pulse 110 H Pulse Source Pulse Oximeter Intake Visit Reasons: DMT2 Intake Note: Patient present today to follow up on Type 2 Diabetes Mellitus. Last Diabetic Eye exam: 06/2024 Last Podiatry Visit: Does not see a Postal Service Mail Processor Random Glucose: 203 mg/dL HgA1C: 7.7% 09/17/2024 Photographic Laboratory Supervisor Required: No Accompanied by: Self / Same As Patient Allergies morphine (MORPHINE) Allergy (Intermediate, Verified 11/19/24 09:33) NAUSEA, rash oxycodone (From PERCOCET) Allergy (Intermediate, Verified 11/19/24 09:33) ITCHY, rash penicillin V Allergy (Intermediate, Verified 11/19/24 09:33) hives simvastatin Allergy (Intermediate, Verified 11/19/24 09:33) rash hydrocodone (From VICODIN) Allergy (Mild, Verified 11/19/24 09:33) RASH amoxicillin (Amoxicillin) Allergy (Unknown, Verified 11/19/24 09:33) UNKNOWN Medication List - Last Reconciled 11/19/24 by VIRI Murphy 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 sensor (Eight19Style Clare 3 Plus Sensor device) Apply 1 new sensor every 15 days as directed to monitor blood glucose continuously. 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,process development manager,cont (FreeStyle Clare 3 [place]) USE DIRECTED buspirone 5 mg PO ONCE pwbtnhtcur-ftbjolrqmjptb-iqaw 50-325-40 mg 1 tab PO DAILY PRN clonazepam 1 mg PO TID clonidine HCl 0.2 mg PO DAILY dextrose (TRUEplus Glucose) 15 grams (32 mL) PO Q15M PRN docusate sodium 100 mg PO DAILY empagliflozin (Jardiance) 25 mg PO DAILY gabapentin 400 mg (4 x 100 mg) PO BID galcanezumab-gnlm (Emgality Pen) 120 mg subcut QMONTH insulin aspart (niacinamide) 100 unit/mL (3 mL) (Fiasp FlexTouch U-100 Insulin) 2 - 4 units subcut .before dinner insulin glargine-yfgn (Semglee (insulin glargine-yfgn) Pen) 50 units subcut DAILY loratadine 10 mg PO DAILY PRN mupirocin 2% (Centany) 1 appl topical TID omeprazole 20 mg PO BID pen needle, diabetic As directed daily with insulin pen four times daily. quetiapine (Seroquel) 1 tab PO BEDTIME quetiapine 1 tab PO BEDTIME rosuvastatin 10 mg PO .every other night 90 days tirzepatide (Mounjaro) 10 mg (0.5 mL) subcut QWEEK trazodone 2 tabs PO BEDTIME venlafaxine ER (Effexor XR) 300 mg PO DAILY HPI Comments Details: This is a 43-year-old female with a past medical history of type 2 diabetes, YAHIR, CVA, GERD, tobacco use, asthma, hyperlipidemia, hypertension and obesity presenting for diabetic management. She developed gestational diabetes 14 years ago and then type II diabetes. Reviewed CGM data for the past 14 days GMI 7% Very high 6% High 20% Target range 74% 0% hypoglycemia She has hyperglycemia after her evening meal. Dinner is her largest meal, and she snacks after it. Hemoglobin A1c 7.7% 09/17/2024. Current medication regimen: Jardiance 25 mg, Fiasp 2 units before dinner, Lantus 52 units nightly and Mounjaro 10 mg weekly. She did not start taking Fiasp before dinner. Past medication: Metformin discontinued due to GI side effects. Ozempic switch to Mounjaro because she did not have weight loss on Ozempic 2 mg or achieve glycemic control on it. Hypoglycemia symptoms: She had 2 episodes in the morning since her last visit. Reports CGM was in the high 50s. She did not check a fingerstick. She felt shaky. Eye exam: UTD Microvascular complications: neuropathy Macrovascular complications: Prior CVA Fib 4 score July 2024 1.06. She has hyperlipidemia and hypertriglyceridemia. She is on atorvastatin 10 mg every other day. She endorses itchy eyes and sneezing this season. I sent loratadine for her to take for seasonal allergies. ROS: Constitutional: No fevers or chills or unexplained weight loss Eyes: No vision changes Respiratory: No shortness of breath Cardiovascular: No chest pain Gastrointestinal: No anorexia, nausea, vomiting or diarrhea. No abdominal pain Neurologic: No syncope or numbness or tingling in the extremities Endocrine: No cold or heat intolerance. No polyuria or polydipsia. Physical exam: Constitutional: Alert, in no distress. Respiratory: Clear to auscultation. Cardiovascular: S1 S2 regular. No murmurs. Neurologic: No focal neurological deficits. Feet: Warm and well perfused. No clubbing, cyanosis or edema. Intact DP pulse. Decreased vibratory sensation. Intact sensation to monofilament. Bilateral nail fungus nail deformities and ingrown nails. There is mild redness around right 1st toenail and a shallow 1 cm wound next to the toenail. There is also some redness around the right 2nd toenail and the left 1st toenail. [facility] Medical History (Updated 11/19/24 @ 10:56 by VIRI Murphy) Fungal infection of nail Diabetic neuropathy Low vitamin B12 level Tachycardia Diabetes mellitus with hyperglycemia Sleep apnea Hypersomnia Right sided weakness [place] Bloating Difficulty swallowing Screening for hypothyroidism Contusion of right knee Burn Wound cellulitis Neck pain IBS (irritable bowel syndrome) GERD (gastroesophageal reflux disease) Crohn's disease Seizure disorder Tobacco abuse Asthma Hypercholesterolemia Hypertension Obesity (BMI 30-39.9) Anxiety and depression Type 2 diabetes mellitus with hyperglycemia, with long-term current use of insulin Migraine Panic disorder PTSD (post-traumatic stress disorder) OCD (obsessive compulsive disorder) Surgical History H/O bilateral breast reduction surgery H/O arthroscopy History of ankle surgery Previous section Family History Father CVD (cerebrovascular disease) Diabetes Hypertension Mother Depression Chronic mental illness Skin cancer Maternal Grandmother Myocardial infarction CVD (cerebrovascular disease) Breast cancer Maternal Aunt Liver cancer Skin cancer Family/Other PTSD (post-traumatic stress disorder) Migraines Asthma Other Mental health disorder Social History Housing: Apartment Alcohol intake: former Patient Tobacco Use Status: Current everyday Tobacco user Tobacco use type: Cigarette Cigarettes Per Day: 5 Years Smoked: 10/2024) e-Cigarette/Vaping Use: Never Used Second Hand Smoke Exposure: Yes Substance Use Type: Marijuana service: No Current occupational status: unemployed Current occupation: left handed Cognitive needs: No Hearing needs: No Vision needs: Yes (glasses) Physical Exam Vital Signs: Last Vital Signs Pulse 110 H 11/19/24 09:33 BP 134/76 11/19/24 09:33 BMI result Body Mass Index 36.7 Office Procedures Glucose Monitoring Details Details: see [facility] [address] - Glucose monitoring, continuous-physician I&R Procedure code (CPT) selection complete Results Reviewed Results Reviewed: Laboratory Last Values Glucose (Clinic) 203 mg/dL (60-115) H 11/19/24 09:38 Laboratory Tests 04/16/23 08/13/24 08:37 08:44 Plt Count 331 Creatinine 0.57 Estimated GFR > 60 AST 25 ALT 9 Triglycerides 231 H Cholesterol 148 LDL Cholesterol, Calc 62 HDL Cholesterol 40 L Vitamin B12 199 L 205 TSH 1.76 Urine Creatinine 46.03 Urine Microalbumin 5.0 Microalb/Creat Ratio 10.8 Assessment & Plan Assessment & Plan (1) Type 2 diabetes mellitus with hyperglycemia, with long-term current use of insulin: Code(s): E11.65 - Type 2 diabetes mellitus with hyperglycemia; Z79.4 - skilled nursing (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 Decrease Lantus to 50 units nightly. If you have lows in the morning after this decrease to 48 units nightly. Continue Mounjaro 10 mg weekly. Continue Jardiance 25 mg daily. Fiasp: Take 2 units before dinner. If your blood sugar is still over 180 in the evening after dinner, increase to 4 units before dinner. Do not take this for other meals. If you experience low blood sugar, treat this by eating a chewable fruit candy like skittles or jelly beans (about 8 pieces), 4 ounces (1/2 cup) of fruit juice (not diet), 1 tablespoon of honey or 4 glucose tablets or 1 pack of glucose gel. If your blood sugar is under 50, take double the amount of one of the above. Recheck your blood sugar in [address] if you have symptoms of low blood sugar or do not have a reliable way to check your blood glucose. (2) Hypercholesterolemia: Code(s): E78.00 - Pure hypercholesterolemia, unspecified Category: Medical Plan: Continue Crestor. Triglycerides are moderately elevated. We discussed lifestyle modifications. She needs to cut back on carbohydrates and sugars particularly at nighttime. She has increasing Mounjaro to help with this. Recommended regular exercise. Recommended starting fish oil, but she does not like the idea of taking this supplement. If triglycerides do not normalize we discussed increasing rosuvastatin or adding fenofibrate. (3) Fungal infection of nail: Code(s): B35.1 - Tinea unguium Category: Medical Plan: Patient refer to podiatry for nail fungus, ingrown nails and neuropathy. I prescribed topical mupirocin to use on the 1 open area and on the red areas around the toenails. She should follow up if she has discharge, increased redness, swelling, fevers, chills or pain. (4) Ingrown toenail of right foot: Code(s): L60.0 - Ingrowing nail Category: Medical (5) Diabetic neuropathy: Code(s): E11.40 - Type 2 diabetes mellitus with diabetic neuropathy, unspecified Category: Medical Qualifiers: Diabetes mellitus type: type 2 Diabetes mellitus complication detail: diabetic polyneuropathy Qualified Code(s): E11.42 - Type 2 diabetes mellitus with diabetic polyneuropathy Plan Follow up in 4 weeks for diabetes. Orders: Orders AMB Glucose Monitoring Today E11.9 - Type 2 diabetes mellitus without complications Referrals Podiatry Referral B35.1 - Tinea unguium, E11.40 - Type 2 diabetes mellitus with diabetic neuropathy, unspecified Medications: New mupirocin 2% (Centany) 1 appl topical TID 22 grams 0RF loratadine 10 mg PO DAILY PRN 90 tabs 0RF allergy symptoms Refilled tirzepatide (Mounjaro) 10 mg (0.5 mL) subcut QWEEK 2 mL 5RF dextrose (TRUEplus Glucose) until symptoms of low blood sugar are controlled 15 grams (32 mL) PO Q15M PRN 192 mL 3RF hypoglycemia Patient Instructions: Decrease Lantus to 50 units nightly. If you have lows in the morning after this decrease to 48 units nightly. Continue Mounjaro 10 mg weekly. Continue Jardiance 25 mg daily. Fiasp: Take 2 units before dinner. If your blood sugar is still over 180 in the evening after dinner, increase to 4 units before dinner. Do not take this for other meals. If you experience low blood sugar, treat this by eating a chewable fruit candy like skittles or jelly beans (about 8 pieces), 4 ounces (1/2 cup) of fruit juice (not diet), 1 tablespoon of honey or 4 glucose tablets or 1 pack of glucose gel. If your blood sugar is under 50, take double the amount of one of the above. Recheck your blood sugar in 15 minutes. Coding Level of Care Code Est Pt Level 4 (19098) Diagnoses Type 2 diabetes mellitus with hyperglycemia, with long-term current use of insulin E11.65; Z79.4 Hypercholesterolemia E78.00 Fungal infection of nail B35.1 Ingrown toenail of right foot L60.0 Diabetic polyneuropathy associated with type 2 diabetes mellitus E11.42 Diabetes mellitus type: type 2 Diabetes mellitus complication detail: diabetic polyneuropathy CPT Codes Details - CPT: 61058 - Glucose monitoring, continuous-physician I&R ([id number])
[2024-11-19 09:33] VITALS: BP 134/76; PULSE 110; BMI 36.7
[2024-11-19 09:42] LABS: Glucose, Whole Blood 203 mg/dL (60-115)
--- OUTSIDE RECORDS SUMMARY | 2024-11-19 09:52 | XMS_ITS | Patient Health Record ---
Author Organization [facility] Address [address] [place] [address] Care Team Providers Care Entry Level Automotive Technician Name Role Phone John Odonnell Primary Care Provider [phone] Reason For Referral No Information Medications Medication [...] drug interaction check* psychiatrist Dr. Terry at [facility] 07/18/2010 Active Plan Of Treatment No Information Insurance Providers Payer Name Payer Address Payer Phone Subscriber Number Group Number Insured Name Patient Relationship to Insured Coverage Start Date Coverage End Date MEDICARE B [address] [place], [place] [id number] Darlene Godfrey Self - patient is the insured [place] Medicaid [address] [place] [address] [id number] Darlene Godfrey Self - patient is the insured
--- OUTSIDE RECORDS SUMMARY | 2024-11-19 09:52 | XMS_ITS | Continuity of Care Document ---
Author Organization [facility] Address [address] [place] [address] Phone [phone] Care Team Providers Care Group Sales Representative Name Role Phone Tracy Delacruz NP Care Team Information Receive r [phone] Gurdeep Villarreal Care Team Information Trailer Mechanic [phone] Problems Active Problems Provider Date Irritable bowel [...] day Heather Ashley M.D. 01/28/2023 Freestyle Clare 2/[place]/Flash Glucose Monitoring Qynywd9Gdilsv Device use as directed with sensors dx: e11.9 1units E11.9 Eduin Pina M.D. 01/28/2023 Freestyle Clare 2/Sensor/Flash Glucose Monitoring Nvjypq2Jncwde Misc 1 sensor every 14 days Dx: e11.9 3units E11.9 Eduin Pina M.D. 01/28/2023 Quetiapine Mcsdigpa129ku Tablets Take 1 Tablet By Mouth Twice A Day as Needed Unknown Qjbezvdoqt725ca Capsules Take 4 Capsules By Mouth 2 Times A Day Po, Lorenver Seltsmhaqg9qr Tablets Take 2 Tablets By Mouth Daily And 1 Tablet AT Bedtime Unknown Venlafaxine HCL XF116lt Caps ER 24HR Take 2 Capsules By Mouth Every Day In The Morning Unknown Lantus Btjixmbq138Prlp/ML Solution Pen-Inject 34 Unit (0.34 ML) Subcutaneously Every Evening Tracy Delacruz, THELMA Clonidine HCL0.2mg Tablets Take 1 Tablet By Mouth Everyday AT Bedtime Unknown Trazodone FWR07vz Tablets Take 1 To 2 Tablets By Mouth AT Bedtime as Needed Unknown Gqcmnmdiy97fw Tablets Take 1 Tablet By Mouth Every Day Po, Lorenver Meloxicam7.5mg Tablets Take 1 Tablet Orally Daily Po, Lorenver Oykjjtqtxq21dz Capsules DR Take 1 Capsule Orally Daily Po, Lorenver BD Pen Needle/Short/Ultra- Fine/31G X 8mm31G X 8 mm Misc as Directed Daily With Insulin Pen Po, Lorenver Quetiapine Kozcfkea771hg Tablets 1 tab by mouth every day [...]
== END 2024-11-19 10:09 | disposition home or self-care (01) ==
LOC: HO.ENCR 09:23
PROVIDERS: PCP Internal Medicine; Visit Provider Physician Assistant Medical
DX: E11.65 Type 2 diabetes mellitus with hyperglycemia (principal); Z79.4 Long term (current) use of insulin; E78.00 Pure hypercholesterolemia, unspecified; B35.1 Tinea unguium; L60.0 Ingrowing nail; E11.42 Type 2 diabetes mellitus with diabetic polyneuropathy

== ENCOUNTER → 2024-11-19 09:22 | Outpatient (BNVA) | payer MEDICARE, MEDICAID, SELFPAY | PROVIDERS: PCP Internal Medicine; Visit Provider Physician Assistant Medical | DX: E11.65 Type 2 diabetes mellitus with hyperglycemia (principal); E78.00 Pure hypercholesterolemia, unspecified; B35.1 Tinea unguium; L60.0 Ingrowing nail | CPT/HCPCS: 82947; 99212 ==

== ENCOUNTER 2024-12-02 13:15 | Outpatient (REF) | payer MEDICARE, MEDICAID, SELFPAY ==
--- NOTE | ~2024-12-02 | MM_ITS ---
EXAMINATION: MM DIAGNOSTIC DIGITAL BREAST TOMOSYNTHESIS, BILATERAL Right breast ultrasound. CLINICAL INFORMATION: Palpable right breast lump lower inner breast. History of bilateral reduction mammoplasty in 2013. COMPARISON: Mammography: Baseline. TECHNIQUE: Digital breast mammography with tomosynthesis is performed in both the craniocaudal and mediolateral oblique views along with computer-aided detection (CAD). FINDINGS: There are scattered areas of fibroglandular density. Bilateral large dystrophic calcifications are benign appearing. Post reduction mammoplasty changes. Right: BB marker in the lower inner breast with an underlying focal asymmetry which localizes superficially. No suspicious calcifications or other abnormal findings. Targeted color Doppler ultrasound scanning in the area the patient's right breast palpable lump at 5:00 7 cm from the nipple and in the lower inner quadrant demonstrates a intradermal oval hypoechoic solid mass consistent with a sebaceous cyst/epidermal inclusion cyst measuring 8 x 11 x 4 mm. This correlates with patient's palpable lump and focal asymmetry on mammography. Left: There are no significant masses, abnormal calcifications, or other abnormalities. Results are provided to the patient at time of visit by the technologist. MM/MM tomosynthesis diagnostic BI IMPRESSION: Left: Benign. Right: Intradermal Sebaceous cyst/epidermal inclusion cyst at the site of patient's palpable lump and focal asymmetry on mammography. Benign. Recommend clinical evaluation follow-up. ASSESSMENT: BI-RADS Category 2: Benign RECOMMENDATION: 1. Patient should be managed based on the clinical impression. 2. Otherwise, routine annual screening mammography. This patient's information was entered into a reminder system with a target due date for their next mammogram. Electronically signed by: Alcira Castano DO 12/02/2024 02:09 PM EDT
--- OUTSIDE RECORDS SUMMARY | 2024-12-02 16:36 | XMS_ITS | Patient Health Record ---
Author Organization [facility] Address [address] [place] [address] Care Team Providers Care Clin Application Specialist Name Role Phone John Odonnell Primary Care [...] drug interaction check* psychiatrist Dr. Terry at [facility] 07/18/2010 Active Plan Of Treatment No Information Insurance Providers Payer Name Payer Address Payer Phone Subscriber Number Group Number Insured Name Patient Relationship to Insured Coverage Start Date Coverage End Date MEDICARE B [address] [place] [id number] Darlene Godfrey Self - patient is the insured [place] Medicaid [address] [place] [address] [phone] [id number] Darlene Godfery Self - patient is the insured
--- OUTSIDE RECORDS SUMMARY | 2024-12-02 16:36 | XMS_ITS | Continuity of Care Document ---
Author Organization [facility] Address [address] [place] [address] Phone [phone] Care Team Providers Care Freight Dispatcher Name Role Phone Tracy Delacruz NP Care Team Information Receive r [phone] Gurdeep Villarreal Care Team Information Wallpaper Cleaner [phone] Problems Active Problems Provider Date Irritable bowel [...] Tablets DR 1 by mouth every day eHather Ashley M.D. 01/28/2023 Freestyle Clare 2/[place]/Flash Glucose Monitoring Whrwgs9Jozuyz Device use as directed with sensors dx: e11.9 1units E11.9 Eduin Pina M.D. 01/28/2023 Freestyle Clare 2/Sensor/Flash Glucose Monitoring Qtxpvl0Fmpcwk Misc 1 sensor every 14 days Dx: e11.9 3units E11.9 Eduin Pina M.D. 01/28/2023 Quetiapine Bsmhsatk962zl Tablets Take 1 Tablet By Mouth Twice A Day as Needed Unknown Zzrurujtpl810la Capsules Take 4 Capsules By Mouth 2 Times A Day Po, Lorenver Qgnedpdyaw2hg Tablets Take 2 Tablets By Mouth Daily And 1 Tablet AT Bedtime Unknown Venlafaxine HCL LJ144bq Caps ER 24HR Take 2 Capsules By Mouth Every Day In The Morning Unknown Lantus Tzjqdagp628Bbdk/ML Solution Pen-Inject 34 Unit (0.34 ML) Subcutaneously Every Evening Tracy Delacruz, THELMA Clonidine HCL0.2mg Tablets Take 1 Tablet By Mouth Everyday AT Bedtime Unknown Trazodone BZY29bm Tablets Take 1 To 2 Tablets By Mouth AT Bedtime as Needed Unknown Ikdncfuad08rz Tablets Take 1 Tablet By Mouth Every Day Po, Lorenver Meloxicam7.5mg Tablets Take 1 Tablet Orally Daily Po, Lorenver Fopkvycrhu71ky Capsules DR Take 1 Capsule Orally Daily Po, Lorenver BD Pen Needle/Short/Ultra- Fine/31G X 8mm31G X 8 mm Misc as Directed Daily With Insulin Pen Po, Lorenver Quetiapine Rwxyhkgk137tx Tablets 1 tab by mouth every day [...] Office Visit 01/28/2023 9:15a Main Office VIRI Jonyer E66.9 Obesity, unsp ecified E11.40 Type 2 [...]
== END 2024-12-02 13:16 | disposition home or self-care (01) ==
LOC: HO.MAMMO 13:15
PROVIDERS: PCP Internal Medicine; Visit Provider Internal Medicine
DX: N63.12 Unspecified lump in the right breast, upper inner quadrant (principal)
CPT/HCPCS: 76642; 77062; 77066

== ENCOUNTER → 2024-12-02 14:00 | Outpatient (BNV) | payer MEDICARE, MEDICAID, SELFPAY | PROVIDERS: PCP Internal Medicine; Visit Provider Internal Medicine | DX: N60.01 Solitary cyst of right breast (principal) | CPT/HCPCS: 76642; 77066; G0279 ==

== ENCOUNTER 2024-12-13 12:27 | Outpatient (AMB) | payer MEDICARE, MEDICAID, SELFPAY ==
--- NOTE | 2024-12-13 12:34 | A.OFFVIS_ITS ---
Vital Signs 12/13/24 12:35 Height 5 ft 1 in Weight 193 lb BMI 36.5 Intake Visit Reasons: Type II diabetes, Tinea Unguim Intake Note: Darlene is a 44 year old female who presents today as a new patient for an evaluation of her tinea unguium and bilateral diabetic foot exam. Her glucose is currently at 165 and her last reported A1c was 7.7% and she reports experiencing bilateral numbness and tingling with out burning. Patient has history of bilateral wounds and injuries to her feet and she mentions having occasional low back pain with no injuries. Patient is currently taking gabapentin and finds relief. Patient toe nail has fallen off on both of her feet Allergies morphine (MORPHINE) Allergy (Intermediate, Verified 12/13/24 12:40) NAUSEA, rash oxycodone (From PERCOCET) Allergy (Intermediate, Verified 12/13/24 12:40) ITCHY, rash penicillin V Allergy (Intermediate, Verified 12/13/24 12:40) hives simvastatin Allergy (Intermediate, Verified 12/13/24 12:40) rash hydrocodone (From VICODIN) Allergy (Mild, Verified 12/13/24 12:40) RASH amoxicillin (Amoxicillin) Allergy (Unknown, Verified 12/13/24 12:40) UNKNOWN Medication List - Last Reconciled 12/14/24 by Mackenzie Mayers DPM 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 sensor (FreeStyle Clare 3 Plus Sensor device) Apply 1 new sensor every 15 days as directed to monitor blood glucose continuously. 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,command center officer,cont (FreeStyle Clare 3 [place]) USE DIRECTED buspirone 5 mg PO ONCE rryoojetmi-agillvocflzsa-nute 50-325-40 mg 1 tab PO DAILY PRN clonazepam 1 mg PO TID clonidine HCl 0.2 mg PO DAILY dextrose (TRUEplus Glucose) 15 grams (32 mL) PO Q15M PRN docusate sodium 100 mg PO DAILY empagliflozin (Jardiance) 25 mg PO DAILY gabapentin 400 mg (4 x 100 mg) PO BID galcanezumab-gnlm (Emgality Pen) 120 mg subcut QMONTH insulin aspart (niacinamide) 100 unit/mL (3 mL) (Fiasp FlexTouch U-100 Insulin) 2 - 4 units subcut .before dinner insulin glargine-yfgn (Semglee (insulin glargine-yfgn) Pen) 50 units subcut DAILY loratadine 10 mg PO DAILY PRN mupirocin 2% (Centany) 1 appl topical TID omeprazole 20 mg PO BID pen needle, diabetic As directed daily with insulin pen four times daily. quetiapine (Seroquel) 1 tab PO BEDTIME quetiapine 1 tab PO BEDTIME rosuvastatin 10 mg PO .every other night 90 days tirzepatide (Mounjaro) 10 mg (0.5 mL) subcut QWEEK trazodone 2 tabs PO BEDTIME venlafaxine ER (Effexor XR) 300 mg PO DAILY HPI Comments Details: The patient is a 44-year-old female with a PMH as seen below presenting for a diabetic foot exam and toenail concerns. The patient reports intermittent infections, which she attributes to stubbing her toes and not wearing socks. She experienced a blood blister after her son ran over her foot with a hoverboard, which was painful but has since resolved. The patient has a history of toenail fungus, with the nails becoming discolored and occasionally falling off. She states toenails 1-3 B/L have fallen off without regrowth. She reports that the toenails do not grow back properly and sometimes produce pus when they fall off. The patient experiences leg cramps intermittently , particularly at the back of the leg extending to the toes. She reports a loss of sensation in her feet. She denies any other pedal concerns. Patient states her A1c is around 7. [facility] Medical History (Updated 12/14/24 @ 12:31 by Mackenzie Mayers DPM) Onycholysis Anonychia Nail disorder Nail dystrophy Fungal infection of nail Diabetic neuropathy Low vitamin B12 level Tachycardia Diabetes mellitus with hyperglycemia Sleep apnea Hypersomnia Right sided weakness Burping Bloating Difficulty swallowing Screening for hypothyroidism Contusion of right knee Burn Wound cellulitis Neck pain IBS (irritable bowel syndrome) GERD (gastroesophageal reflux disease) Crohn's disease Seizure disorder Tobacco abuse Asthma Hypercholesterolemia Hypertension Obesity (BMI 30-39.9) Anxiety and depression Type 2 diabetes mellitus with hyperglycemia, with long-term current use of insulin Migraine Panic disorder PTSD (post-traumatic stress disorder) OCD (obsessive compulsive disorder) Surgical History H/O bilateral breast reduction surgery H/O arthroscopy History of ankle surgery Previous section Family History Father CVD (cerebrovascular disease) Diabetes Hypertension Mother Depression Chronic mental illness Skin cancer Maternal Grandmother Myocardial infarction CVD (cerebrovascular disease) Breast cancer Maternal Aunt Liver cancer Skin cancer Family/Other PTSD (post-traumatic stress disorder) Migraines Asthma Other Mental health disorder Social History Housing: Apartment Alcohol intake: former Patient Tobacco Use Status: Current everyday Tobacco user Tobacco use type: Cigarette Cigarettes Per Day: 5 Years Smoked: 10/2024) e-Cigarette/Vaping Use: Never Used Second Hand Smoke Exposure: Yes Substance Use Type: Marijuana service: No Current occupational status: unemployed Current occupation: left handed Cognitive needs: No Hearing needs: No Vision needs: Yes (glasses) Review of Systems Const Details: - Neurological: Reports numbness and tingling in feet. Denies current pain. - Musculoskeletal: Reports leg cramps, particularly in the back of the leg extending to the toes. - Integumentary: Reports intermittent foot infections and toenail loss with occasional pus discharge. All systems reviewed & are unremarkable except as noted in HPI and below Physical Exam Vital Signs: BMI result Body Mass Index 36.5 Extrem Other: B/L LE Focused Physical Exam: Derm: Loss of toenails 1-3 B/L with significantly reduced nail length noted to 4-5. Dystrophic nail beds noted. No open lesions, abrasions, or wounds noted. No ecchymosis or discoloration noted. No active bleeding, drainage, or purulence noted. No clincal signs of infection. Diffuse scarring noted to the legs. Vasc: DP/PT pulses palpable. CFT < 3 secs. Temp gradient warm to warm. No varicosities noted. Pedal hair diminished. No edema noted. Neuro: Protective sensations grossly diminished to light touch and monofilament testing. MSK: No pain on palpation to exposed nail beds. ROM of the forefoot, hindfoot, and ankles WNL. No crepitus or fluctuance noted. Nonantalgic gait unassisted noted. Negative indio's sign. Negative squeeze test. No painn to the calves noted. Office Procedures Diabetic Foot Exam G9226 - Diabetic Foot Exam Results Reviewed Results Reviewed: Laboratory Tests 09/17/24 11/19/24 11:38 09:38 Glucose (Clinic) 203 H Hgb A1c (Clinic) 7.7 H Assessment & Plan Assessment & Plan (1) Type 2 diabetes mellitus with hyperglycemia, with long-term current use of insulin: Code(s): E11.65 - Type 2 diabetes mellitus with hyperglycemia; Z79.4 - technician terminal and repeater (current) use of insulin Category: Medical (2) Diabetic neuropathy: Code(s): E11.40 - Type 2 diabetes mellitus with diabetic neuropathy, unspecified Category: Medical Qualifiers: Diabetes mellitus type: type 2 Diabetes mellitus complication detail: diabetic polyneuropathy Qualified Code(s): E11.42 - Type 2 diabetes mellitus with diabetic polyneuropathy (3) Nail dystrophy: Code(s): L60.3 - Nail dystrophy Category: Medical (4) Nail disorder: Code(s): L60.9 - Nail disorder, unspecified Category: Medical (5) Anonychia: Code(s): Q84.3 - Anonychia Category: Medical (6) Onycholysis: Code(s): L60.1 - Onycholysis Category: Medical Plan Patient was informed and verbally consented to the use of an ambient scribe for clinic note documentation during this visit. Educated patient on the effects diabetes can have on the lower extremities. I discussed with the patient the importance of wearing slippers or shoes indoors to prevent injuries and provide arch support. We talked about the need for daily foot checks due to her loss of sensation. I advised her to continue using mupirocin ointment for any signs of infection and to soak her feet in Epsom salt and warm water to alleviate irritation. We also discussed the importance of hydration and electrolyte intake to manage leg cramps. I recommended a follow-up appointment in six months to monitor her nail growth and foot health. - Recommend wearing slippers or shoes indoors to prevent injuries and provide arch support. - Avoid barefoot walking and wear supportive shoe gear. - Advised daily foot checks for wounds or infections, especially due to loss of sensation. - Continue using mupirocin ointment for any signs of infection or pus discharge from toenails. - Soak feet in Epsom salt and warm water to alleviate irritation and prevent infections. - Encourage hydration and electrolyte intake to manage leg cramps. - Continue diabetic management as per PCP. RTC in 6 months for routine diabetic exam. Orders: Orders AMB Diabetic Foot Exam Today E11.42 - Type 2 diabetes mellitus with diabetic polyneuropathy, E11.65 - Type 2 diabetes mellitus with hyperglycemia, L60.1 - Onycholysis, L60.3 - Nail dystrophy, L60.9 - Nail disorder, unspecified, Q84.3 - Anonychia, Z79.4 - technician terminal and repeater (current) use of insulin Coding Level of Care Code New Pt Level 4 (27412) Diagnoses Type 2 diabetes mellitus with hyperglycemia, with long-term current use of insulin E11.65; Z79.4 Diabetic polyneuropathy associated with type 2 diabetes mellitus E11.42 Diabetes mellitus type: type 2 Diabetes mellitus complication detail: diabetic polyneuropathy Nail dystrophy L60.3 Nail disorder L60.9 Anonychia Q84.3 Onycholysis L60.1 CPT Codes Diabetic Foot Exam - CPT: G9226 - Diabetic Foot Exam ([id number]) Time Spent (min) 55
[2024-12-13 12:35] VITALS: BMI 36.5
--- OUTSIDE RECORDS SUMMARY | 2024-12-13 15:48 | XMS_ITS | Patient Health Record ---
Author Organization [facility] Address [address] [place] [address] Care Team Providers Care Para Operator Name Role Phone John Odonnell Primary Care [...] drug interaction check* psychiatrist Dr. Terry at [facility] 07/18/2010 Active Plan Of Treatment No Information Insurance Providers Payer Name Payer Address Payer Phone Subscriber Number Group Number Insured Name Patient Relationship to Insured Coverage Start Date Coverage End Date MEDICARE B [address] [place], [place] [id number] Darlene Godfrey Self - patient is the insured [place] Medicaid [address] [place] [address] [id number] Darlene Godfrey Self - patient is the insured
== END 2024-12-13 12:54 | disposition home or self-care (01) ==
LOC: HO.HPODS 12:28
PROVIDERS: PCP Internal Medicine; Visit Provider Student in an Organized Health Care Education/Training Program
DX: E11.65 Type 2 diabetes mellitus with hyperglycemia (principal); Z79.4 Long term (current) use of insulin; E11.42 Type 2 diabetes mellitus with diabetic polyneuropathy; L60.3 Nail dystrophy; L60.9 Nail disorder, unspecified; Q84.3 Anonychia; L60.1 Onycholysis
CPT/HCPCS: 99204; G9226

== ENCOUNTER → 2024-12-13 12:27 | Outpatient (BNVA) | payer MEDICARE, MEDICAID, SELFPAY | PROVIDERS: PCP Internal Medicine; Visit Provider Student in an Organized Health Care Education/Training Program | DX: E11.42 Type 2 diabetes mellitus with diabetic polyneuropathy (principal); E11.65 Type 2 diabetes mellitus with hyperglycemia; E11.628 Type 2 diabetes mellitus with other skin complications; L60.1 Onycholysis; L60.3 Nail dystrophy | CPT/HCPCS: 99202 ==

== ENCOUNTER 2024-12-24 10:57 | Outpatient (AMB) | payer MEDICARE, MEDICAID, SELFPAY ==
--- NOTE | 2024-12-24 10:59 | A.OFFVIS_ITS ---
Vital Signs 12/24/24 11:02 Height 5 ft 1 in Weight 197 lb 12.074 oz BMI 37.4 BP 124/78 Blood Pressure Location Lt brachial Position Sitting Pulse 109 H Pulse Source Pulse Oximeter Intake Visit Reasons: Type II DM Intake Note: Patient present today to follow up on Type 2 Diabetes Mellitus. Last Diabetic Eye exam: 06/2024 Last Podiatry Visit: Does not see a Classification Clerk Random Glucose: 124 mg/dL HgA1C: 7.5% 12/24/2024 Flat Ironer Required: No Accompanied by: Self / Same As Patient Allergies morphine (MORPHINE) Allergy (Intermediate, Verified 12/24/24 11:02) NAUSEA, rash oxycodone (From PERCOCET) Allergy (Intermediate, Verified 12/24/24 11:02) ITCHY, rash penicillin V Allergy (Intermediate, Verified 12/24/24 11:02) hives simvastatin Allergy (Intermediate, Verified 12/24/24 11:02) rash hydrocodone (From VICODIN) Allergy (Mild, Verified 12/24/24 11:02) RASH amoxicillin (Amoxicillin) Allergy (Unknown, Verified 12/24/24 11:02) UNKNOWN Medication List - Last Reconciled 12/24/24 by VIRI Murphy 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 sensor (Flash [employer] Clare 3 Plus Sensor device) Apply 1 new sensor every 15 days as directed to monitor blood glucose continuously. 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,trucker hand,cont (FreeStyle Clare 3 [place]) USE DIRECTED buspirone 5 mg PO ONCE afdzkfojpa-bmgiyosgzqbfi-ozfa 50-325-40 mg 1 tab PO DAILY PRN clonazepam 1 mg PO TID clonidine HCl 0.2 mg PO DAILY dextrose (TRUEplus Glucose) 15 grams (32 mL) PO Q15M PRN docusate sodium 100 mg PO DAILY empagliflozin (Jardiance) 25 mg PO DAILY gabapentin 400 mg (4 x 100 mg) PO BID galcanezumab-gnlm (Emgality Pen) 120 mg subcut QMONTH insulin aspart (niacinamide) 100 unit/mL (3 mL) (Fiasp FlexTouch U-100 Insulin) 2 - 4 units subcut .before dinner insulin glargine-yfgn (Semglee (insulin glargine-yfgn) Pen) 50 units subcut DAILY loratadine 10 mg PO DAILY PRN mupirocin 2% (Centany) 1 appl topical TID omeprazole 20 mg PO BID pen needle, diabetic As directed daily with insulin pen four times daily. quetiapine (Seroquel) 1 tab PO BEDTIME quetiapine 1 tab PO BEDTIME rosuvastatin 10 mg PO .every other night 90 days tirzepatide (Mounjaro) 10 mg (0.5 mL) subcut QWEEK trazodone 2 tabs PO BEDTIME venlafaxine ER (Effexor XR) 300 mg PO DAILY HPI Comments Details: This is a 44-year-old female with a past medical history of type 2 diabetes, YAHIR, CVA, GERD, tobacco use, asthma, hyperlipidemia, hypertension and obesity presenting for diabetic management. She developed gestational diabetes 14 years ago and then type II diabetes. Reviewed CGM data for the past 14 days G [place] 7.6% Average glucose 180 Glucose variability 34.2% Very high 14% High 25% Target range 61% My interpretation is that she has continued hyperglycemia in the evening. Dinner is her largest meal, and she snacks after it. She's been eating Halloween candy. Hemoglobin A1c 7.5% down from 7.7%. Current medication regimen: Jardiance 25 mg, Fiasp 2-4 units before dinner, Lantus 50 units nightly and Mounjaro 10 mg weekly. She did not start taking Fiasp before dinner because a lot of the time her blood sugar is under 150 before the meal. Past medication: Metformin discontinued due to GI side effects. Ozempic switch to Mounjaro because she did not have weight loss on Ozempic 2 mg or achieve glycemic control on it. Hypoglycemia symptoms: No interval episodes since reducing her dose of Lantus. Eye exam: UTD Microvascular complications: neuropathy Macrovascular complications: Prior CVA Fib 4 score July 2024 1.06. She has hyperlipidemia and hypertriglyceridemia. She is on atorvastatin 10 mg every other day. Seen recently by Podiatry. ROS: Constitutional: No fevers or chills or unexplained weight loss Eyes: No vision changes Respiratory: No shortness of breath Cardiovascular: No chest pain Gastrointestinal: No anorexia, nausea, vomiting or diarrhea. No abdominal pain Neurologic: No syncope or numbness or tingling in the extremities Endocrine: No cold or heat intolerance. No polyuria or polydipsia. Physical exam: Constitutional: Alert, in no distress. Respiratory: Clear to auscultation. Neck: No lymphadenopathy, thyroid enlargement or palpable masses Cardiovascular: S1 S2 regular. No murmurs. Neurologic: No focal neurological deficits. [facility] Medical History (Updated 12/14/24 @ 12:31 by Mackenzie Mayers DPM) Onycholysis Anonychia Nail disorder Nail dystrophy Fungal infection of nail Diabetic neuropathy Low vitamin B12 level Tachycardia Diabetes mellitus with hyperglycemia Sleep apnea Hypersomnia Right sided weakness Burping Bloating Difficulty swallowing Screening for hypothyroidism Contusion of right knee Burn Wound cellulitis Neck pain IBS (irritable bowel syndrome) GERD (gastroesophageal reflux disease) Crohn's disease Seizure disorder Tobacco abuse Asthma Hypercholesterolemia Hypertension Obesity (BMI 30-39.9) Anxiety and depression Type 2 diabetes mellitus with hyperglycemia, with long-term current use of insulin Migraine Panic disorder PTSD (post-traumatic stress disorder) OCD (obsessive compulsive disorder) Surgical History H/O bilateral breast reduction surgery H/O arthroscopy History of ankle surgery Previous section Family History Father CVD (cerebrovascular disease) Diabetes Hypertension Mother Depression Chronic mental illness Skin cancer Maternal Grandmother Myocardial infarction CVD (cerebrovascular disease) Breast cancer Maternal Aunt Liver cancer Skin cancer Family/Other PTSD (post-traumatic stress disorder) Migraines Asthma Other Mental health disorder Social History Housing: Apartment Alcohol intake: former Patient Tobacco Use Status: Current everyday Tobacco user Tobacco use type: Cigarette Cigarettes Per Day: 5 Years Smoked: 10/2024) e-Cigarette/Vaping Use: Never Used Second Hand Smoke Exposure: Yes Substance Use Type: Marijuana service: No Current occupational status: unemployed Current occupation: left handed Cognitive needs: No Hearing needs: No Vision needs: Yes (glasses) Physical Exam Vital Signs: Last Vital Signs Pulse 109 H 12/24/24 11:02 BP 124/78 12/24/24 11:02 BMI result Body Mass Index 37.4 Results AMB Hemoglobin A1c AMB Hemoglobin A1c 7.5 % Last Edit by NASRIN Watson on 12/24/24 11:30 Results Reviewed Results Reviewed: Laboratory Last Values Glucose (Clinic) 124 mg/dL (60-115) H 12/24/24 11:07 Hgb A1c (Clinic) 7.5 % (4.0-6.0) H 12/24/24 11:29 Laboratory Tests 04/16/23 08/13/24 08:37 08:44 Plt Count 331 Creatinine 0.57 Estimated GFR > 60 AST 25 ALT 9 Triglycerides 231 H Cholesterol 148 LDL Cholesterol, Calc 62 HDL Cholesterol 40 L Vitamin B12 199 L 205 TSH 1.76 Urine Creatinine 46.03 Urine Microalbumin 5.0 Microalb/Creat Ratio 10.8 Assessment & Plan Assessment & Plan (1) Type 2 diabetes mellitus with hyperglycemia, with long-term current use of insulin: Code(s): E11.65 - Type 2 diabetes mellitus with hyperglycemia; Z79.4 - termite inspector (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 Continue Lantus to 50 units nightly. If you have lows in the morning decrease to 48 units nightly. Continue Mounjaro 10 mg weekly. Continue Jardiance 25 mg daily. Fiasp: Lower threshold for administration before dinner. If blood sugar is 120 or higher before dinner administer 2 units. If your blood sugar is still over 180 in the evening after dinner, increase to 4 units before dinner. Do not take this for other meals. Strongly advised patient to decrease carbohydrate and sugar intake in the evening. If you experience low blood sugar, treat this by eating a chewable fruit candy like skittles or jelly beans (about 8 pieces), 4 ounces (1/2 cup) of fruit juice (not diet), 1 tablespoon of honey or 4 glucose tablets or 1 pack of glucose gel. If your blood sugar is under 50, take double the amount of one of the above. Recheck your blood sugar in [address] if you have symptoms of low blood sugar or do not have a reliable way to check your blood glucose. (2) Hypercholesterolemia: Code(s): E78.00 - Pure hypercholesterolemia, unspecified Category: Medical Plan: Continue Crestor. Triglycerides are moderately elevated. We discussed lifestyle modifications. She needs to cut back on carbohydrates and sugars particularly at nighttime. She has increasing Mounjaro to help with this. Recommended regular exercise. Recommended starting fish oil, but she does not like the idea of taking this supplement. If triglycerides do not normalize we discussed increasing rosuvastatin or adding fenofibrate. (3) Diabetic neuropathy: Code(s): E11.40 - Type 2 diabetes mellitus with diabetic neuropathy, unspecified Category: Medical Qualifiers: Diabetes mellitus complication detail: diabetic polyneuropathy Diabetes mellitus type: type 2 Qualified Code(s): E11.42 - Type 2 diabetes mellitus with diabetic polyneuropathy Plan Follow up in 6 weeks for diabetes. Orders: Orders AMB Glucose Monitoring Today E11.9 - Type 2 diabetes mellitus without complications AMB Hemoglobin A1c Today E11.65 - Type 2 diabetes mellitus with hyperglycemia, Z79.4 - jail (current) use of insulin Medications: Refilled tirzepatide (Mounjaro) 10 mg (0.5 mL) subcut QWEEK 2 mL 5RF Patient Instructions: Continue Lantus to 50 units nightly. If you have lows in the morning decrease to 48 units nightly. Continue Mounjaro 10 mg weekly. Continue Jardiance 25 mg daily. Fiasp: Take 2 units before dinner if your blood sugar is 120 or higher before your meal. If your blood sugar is still over 180 in the evening after dinner, increase to 4 units before dinner. Do not take this for other meals. Coding Level of Care Code Est Pt Level 4 (35024) Diagnoses Type 2 diabetes mellitus with hyperglycemia, with long-term current use of insulin E11.65; Z79.4 Hypercholesterolemia E78.00 Diabetic polyneuropathy associated with type 2 diabetes mellitus E11.42 Diabetes mellitus complication detail: diabetic polyneuropathy Diabetes mellitus type: type 2
[2024-12-24 11:02] VITALS: BP 124/78; PULSE 109; BMI 37.4
[2024-12-24 11:11] LABS: Glucose, Whole Blood 124 mg/dL (60-115)
--- OUTSIDE RECORDS SUMMARY | 2024-12-24 13:12 | XMS_ITS | Patient Health Record ---
Author Organization [facility] Address [address] [place] [address] Care Team Providers Care Photograph Developer Name Role Phone John Odonnell Primary Care Provider [phone] Reason For Referral No Information Medications Medication [...] interaction check* psychiatrist Dr. Terry at [facility] 07/18/2010 Active Plan Of Treatment No Information Insurance Providers Payer Name Payer Address Payer Phone Subscriber Number Group Number Insured Name Patient Relationship to Insured Coverage Start Date Coverage End Date MEDICARE B [address] [place], [place] [id number] [phone] [id number] Darlene Godfrey Self - patient is the insured [place] Medicaid [address] [place] [address] [phone] [id number] Darlene Godfrey Self - patient is the insured
--- OUTSIDE RECORDS SUMMARY | 2024-12-24 13:12 | XMS_ITS | Continuity of Care Document ---
Author Organization [facility] Address [address] [place] [address] Phone [phone] Care Team Providers Care Applications Processor Name Role Phone Tracy Delacruz NP Care Team Information Receive r [phone] Gurdeep Villarreal Care Team Information Card Folder [phone] Problems Active Problems Provider Date Irritable bowel [...] day Heather Ashley M.D. 01/28/2023 Freestyle Clare 2/Elizabeth/Flash Glucose Monitoring [id number] Device use as directed with sensors dx: e11.9 1units E11.9 Eduin Pina M.D. 01/28/2023 Freestyle Clare 2/Sensor/Flash Glucose Monitoring [id number] Misc 1 sensor every 14 days Dx: e11.9 3units E11.9 Eduin Pina M.D. 01/28/2023 Quetiapine [id number] Tablets Take 1 Tablet By Mouth Twice A Day as Needed Unknown [id number] Capsules Take 4 Capsules By Mouth 2 Times A Day Po, Lorenver Lgbliclmnt0gy Tablets Take 2 Tablets By Mouth Daily And 1 Tablet AT Bedtime Unknown Venlafaxine HCL PT254le Caps ER 24HR Take 2 Capsules By Mouth Every Day In The Morning Unknown Lantus Fspxqldo981Sfke/ML Solution Pen-Inject 34 Unit (0.34 ML) Subcutaneously Every Evening Tracy Delacruz, THELMA Clonidine HCL0.2mg Tablets Take 1 Tablet By Mouth Everyday AT Bedtime Unknown Trazodone RNQ25ah Tablets Take 1 To 2 Tablets By Mouth AT Bedtime as Needed Unknown Rjiyjoghw25jc Tablets Take 1 Tablet By Mouth Every Day Po, Lorenver Meloxicam7.5mg Tablets Take 1 Tablet Orally Daily Po, Lorenver Cnueymcocw02hn Capsules DR Take 1 Capsule Orally Daily Po, Lorenver BD Pen Needle/Short/Ultra- Fine/31G X 8mm31G X 8 mm Misc as Directed Daily With Insulin Pen Po, Lorenver Quetiapine Ewkywdmg840rq Tablets 1 tab by mouth every day [...]
== END 2024-12-24 11:25 | disposition home or self-care (01) ==
LOC: HO.ENCR 10:58
PROVIDERS: PCP Internal Medicine; Visit Provider Physician Assistant Medical
DX: E11.65 Type 2 diabetes mellitus with hyperglycemia (principal); Z79.4 Long term (current) use of insulin; E78.00 Pure hypercholesterolemia, unspecified; E11.42 Type 2 diabetes mellitus with diabetic polyneuropathy

== ENCOUNTER → 2024-12-24 10:57 | Outpatient (BNVA) | payer MEDICARE, MEDICAID, SELFPAY | PROVIDERS: PCP Internal Medicine; Visit Provider Physician Assistant Medical | DX: E11.42 Type 2 diabetes mellitus with diabetic polyneuropathy (principal); E11.65 Type 2 diabetes mellitus with hyperglycemia; E78.00 Pure hypercholesterolemia, unspecified; Z79.4 Long term (current) use of insulin; Z79.85 Long-term (current) use of injectable non-insulin antidiabetic drugs | CPT/HCPCS: 82947; 83036; 99212 ==

== ENCOUNTER 2025-02-04 11:17 | Outpatient (AMB) | payer MEDICARE, MEDICAID, SELFPAY ==
--- NOTE | 2025-02-04 11:19 | A.OFFVIS_ITS ---
Vital Signs 02/04/25 11:26 02/04/25 11:53 Height 5 ft 1 in Weight 201 lb 4.513 oz BMI 38.0 BP 124/72 Blood Pressure Location Lt brachial Position Sitting Pulse 116 H 100 Pulse Source Pulse Oximeter Pulse Oximetry (%) 98 Oxygen Delivery Method Room Air Intake Visit Reasons: Type II diabetes Intake Note: Patient present today to follow up on Type 2 Diabetes Mellitus. Last Diabetic Eye exam: 06/2024 Last Podiatry Visit: Does not see a Microbiological Analyst Random Glucose: 161 mg/dL HgA1C: 7.5% 12/24/2024 Twister Frame Tender Required: No Accompanied by: Self / Same As Patient Allergies morphine (MORPHINE) Allergy (Intermediate, Verified 02/04/25 11:26) NAUSEA, rash oxycodone (From PERCOCET) Allergy (Intermediate, Verified 02/04/25 11:26) ITCHY, rash penicillin V Allergy (Intermediate, Verified 02/04/25 11:26) hives simvastatin Allergy (Intermediate, Verified 02/04/25 11:26) rash hydrocodone (From VICODIN) Allergy (Mild, Verified 02/04/25 11:26) RASH amoxicillin (Amoxicillin) Allergy (Unknown, Verified 02/04/25 11:26) UNKNOWN Medication List - Last Reconciled 02/04/25 by VIRI Murphy 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 sensor ([employer](IN[employer])Style Clare 3 Plus Sensor device) Apply 1 new sensor every 15 days as directed to monitor blood glucose continuously. 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,dry chain operator,cont (FreeStyle Clare 3 [place]) USE DIRECTED buspirone 5 mg PO ONCE ffbdbuoykj-wihopowgbegou-vngx 50-325-40 mg 1 tab PO DAILY PRN clonazepam 1 mg PO TID clonidine HCl 0.2 mg PO DAILY dextrose (TRUEplus Glucose) 15 grams (32 mL) PO Q15M PRN docusate sodium 100 mg PO DAILY empagliflozin (Jardiance) 25 mg PO DAILY gabapentin 400 mg (4 x 100 mg) PO BID galcanezumab-gnlm (Emgality Pen) 120 mg subcut QMONTH insulin aspart (niacinamide) 100 unit/mL (3 mL) (Fiasp FlexTouch U-100 Insulin) 4 units subcut .before dinner insulin glargine-yfgn (Semglee (insulin glargine-yfgn) Pen) 46 units subcut DAILY loratadine 10 mg PO DAILY PRN mupirocin 2% (Centany) 1 appl topical TID omeprazole 20 mg PO BID pen needle, diabetic As directed daily with insulin pen four times daily. quetiapine (Seroquel) 1 tab PO BEDTIME quetiapine 1 tab PO BEDTIME rosuvastatin 10 mg PO .every other night 90 days tirzepatide (Mounjaro) 12.5 mg (0.5 mL) subcut QWEEK trazodone 2 tabs PO BEDTIME venlafaxine ER (Effexor XR) 300 mg PO DAILY HPI Comments Details: This is a 44-year-old female with a past medical history of type 2 diabetes, YAHIR, CVA, GERD, tobacco use, asthma, hyperlipidemia, hypertension and obesity presenting for diabetic management. She developed gestational diabetes 14 years ago and then type II diabetes. Hemoglobin A1c 7.5% down from 7.7%. CGM active 95% Average glucose 179 G NC 7.6% Glucose variability 35.7% Very high 14% High 25% Target range 59% Low 1% Very low 1% She has good control of her blood sugars during the day, but they increase after dinner and in the evening. She has a occasional low blood sugars between midnight to 3 am. Dinner is her largest meal, and she snacks after it. She has candy or tea with sugar or a large portion of grapes or other fruit. Daughter recently at crisis. She has been stress eating. Current medication regimen: Jardiance 25 mg, Fiasp 4-6 units before dinner, Lantus 50 units nightly and Mounjaro 10 mg weekly. Past medication: Metformin discontinued due to GI side effects. Ozempic switch to Mounjaro because she did not have weight loss on Ozempic 2 mg or achieve glycemic control on it. Hypoglycemia symptoms: feels tremulous and hungry Eye exam: UTD Microvascular complications: neuropathy Macrovascular complications: Prior CVA Fib 4 score July 2024 1.06. She has hyperlipidemia and hypertriglyceridemia. She is on atorvastatin 10 mg every other day. Seen recently by Podiatry. ROS: Constitutional: No fevers or chills or unexplained weight loss Eyes: No vision changes Respiratory: No shortness of breath Cardiovascular: No chest pain Gastrointestinal: No anorexia, nausea, vomiting or diarrhea. No abdominal pain Neurologic: No syncope or numbness or tingling in the extremities Endocrine: No cold or heat intolerance. No polyuria or polydipsia. Physical exam: Constitutional: Alert, in no distress. Respiratory: Clear to auscultation. Neck: No lymphadenopathy, thyroid enlargement or palpable masses Cardiovascular: S1 S2 regular. No murmurs. Neurologic: No focal neurological deficits. [facility] Medical History (Updated 12/14/24 @ 12:31 by Mackenzie Mayers DPM) Onycholysis Anonychia Nail disorder Nail dystrophy Fungal infection of nail Diabetic neuropathy Low vitamin B12 level Tachycardia Diabetes mellitus with hyperglycemia Sleep apnea Hypersomnia Right sided weakness Burping Bloating Difficulty swallowing Screening for hypothyroidism Contusion of right knee Burn Wound cellulitis Neck pain IBS (irritable bowel syndrome) GERD (gastroesophageal reflux disease) Crohn's disease Seizure disorder Tobacco abuse Asthma Hypercholesterolemia Hypertension Obesity (BMI 30-39.9) Anxiety and depression Type 2 diabetes mellitus with hyperglycemia, with long-term current use of insulin Migraine Panic disorder PTSD (post-traumatic stress disorder) OCD (obsessive compulsive disorder) Surgical History H/O bilateral breast reduction surgery H/O arthroscopy History of ankle surgery Previous section Family History Father CVD (cerebrovascular disease) Diabetes Hypertension Mother Depression Chronic mental illness Skin cancer Maternal Grandmother Myocardial infarction CVD (cerebrovascular disease) Breast cancer Maternal Aunt Liver cancer Skin cancer Family/Other PTSD (post-traumatic stress disorder) Migraines Asthma Other Mental health disorder Social History Housing: Apartment Alcohol intake: former Patient Tobacco Use Status: Current everyday Tobacco user Tobacco use type: Cigarette Cigarettes Per Day: 5 Years Smoked: 10/2024) e-Cigarette/Vaping Use: Never Used Second Hand Smoke Exposure: Yes Substance Use Type: Marijuana service: No Current occupational status: unemployed Current occupation: left handed Cognitive needs: No Hearing needs: No Vision needs: Yes (glasses) Physical Exam Vital Signs: Last Vital Signs Pulse 116 H 02/04/25 11:26 BP 124/72 02/04/25 11:26 Pulse Ox 98 02/04/25 11:26 Oxygen Delivery Method Room Air 02/04/25 11:26 BMI result Body Mass Index 38.0 Results Reviewed Results Reviewed: Laboratory Last Values Glucose (Clinic) 161 mg/dL (60-115) H 02/04/25 11:30 Laboratory Tests 04/16/23 08/13/24 08:37 08:44 Plt Count 331 Creatinine 0.57 Estimated GFR > 60 AST 25 ALT 9 Triglycerides 231 H Cholesterol 148 LDL Cholesterol, Calc 62 HDL Cholesterol 40 L Vitamin B12 199 L 205 TSH 1.76 Urine Creatinine 46.03 Urine Microalbumin 5.0 Microalb/Creat Ratio 10.8 Assessment & Plan Assessment & Plan (1) Type 2 diabetes mellitus with hyperglycemia, with long-term current use of insulin: Code(s): E11.65 - Type 2 diabetes mellitus with hyperglycemia; Z79.4 - wind tunnel engineer (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 Decrease Lantus to 46 units nightly Increase Mounjaro 12.5 mg weekly. Continue Jardiance 25 mg daily. Fiasp before dinner: if blood sugar is >120 administer 4 units. If you just have protein and vegetables don't use the Fiasp. Strongly advised patient to decrease carbohydrate and sugar intake in the evening. If you experience low blood sugar, treat this by eating a chewable fruit candy like skittles or jelly beans (about 8 pieces), 4 ounces (1/2 cup) of fruit juice (not diet), 1 tablespoon of honey or 4 glucose tablets or 1 pack of glucose gel. If your blood sugar is under 50, take double the amount of one of the above. Recheck your blood sugar in [address] if you have symptoms of low blood sugar or do not have a reliable way to check your blood glucose. (2) Hypercholesterolemia: Code(s): E78.00 - Pure hypercholesterolemia, unspecified Category: Medical Plan: Continue Crestor. Triglycerides are moderately elevated. We discussed lifestyle modifications. She needs to cut back on carbohydrates and sugars particularly at nighttime. She iincreasing Mounjaro to help with this. Recommended regular exercise. Recommended starting fish oil, but she does not like the idea of taking this supplement. If triglycerides do not normalize we discussed increasing rosuvastatin or adding fenofibrate. (3) Diabetic neuropathy: Code(s): E11.40 - Type 2 diabetes mellitus with diabetic neuropathy, unspecified Category: Medical Qualifiers: Diabetes mellitus complication detail: diabetic polyneuropathy Diabetes mellitus type: type 2 Qualified Code(s): E11.42 - Type 2 diabetes mellitus with diabetic polyneuropathy Plan Follow up in 4 weeks for diabetes. Orders: Orders AMB Glucose Monitoring Today E11.9 - Type 2 diabetes mellitus without complications Medications: New tirzepatide (Mounjaro) 12.5 mg (0.5 mL) subcut QWEEK 2 mL 1RF Refilled 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 sensor (FreeStyle Clare 3 Plus Sensor device) Apply 1 new sensor every 15 days as directed to monitor blood glucose continuously. 2 ea 11RF Discontinued tirzepatide (Mounjaro) Discontinued Reason: Doctor's Order 10 mg (0.5 mL) subcut QWEEK 2 mL 5RF Patient Instructions: Jardiance 25 mg Increase Mounjaro 12.5 mg weekly Decrease Lantus 46 units nightly Fiasp before dinner: if blood sugar is >120 administer 4 units. If you just have protein and vegetables don't use the Fiasp. Coding Level of Care Code Est Pt Level 4 (11553) Diagnoses Type 2 diabetes mellitus with hyperglycemia, with long-term current use of insulin E11.65; Z79.4 Hypercholesterolemia E78.00 Diabetic polyneuropathy associated with type 2 diabetes mellitus E11.42 Diabetes mellitus complication detail: diabetic polyneuropathy Diabetes mellitus type: type 2
[2025-02-04 11:26] VITALS: BP 124/72; PULSE 116; O2SAT 98; BMI 38.0
[2025-02-04 11:35] LABS: Glucose, Whole Blood 161 mg/dL (60-115)
[2025-02-04 11:53] VITALS: PULSE 100
--- OUTSIDE RECORDS SUMMARY | 2025-02-04 13:18 | XMS_ITS | Patient Health Record ---
Author Organization [facility] Address [address] [place] [address] Care Team Providers Care Crop Duster Name Role Phone John Odonnell Primary Care Provider [phone] Reason For Referral No Information Medications Medication [...] drug interaction check* psychiatrist Dr. Terry at [facility] 07/18/2010 Active Plan Of Treatment No Information Insurance Providers Payer Name Payer Address Payer Phone Subscriber Number Group Number Insured Name Patient Relationship to Insured Coverage Start Date Coverage End Date MEDICARE B [address] [place], [place] [id number] Darlene Godfrey Self - patient is the insured [id number] Medicaid [address] [place] [address] [id number] Darlene Godfrey Self - patient is the insured
== END 2025-02-04 11:55 | disposition home or self-care (01) ==
LOC: HO.ENCR 11:17
PROVIDERS: PCP Internal Medicine; Visit Provider Physician Assistant Medical
DX: E11.65 Type 2 diabetes mellitus with hyperglycemia (principal); Z79.4 Long term (current) use of insulin; E78.00 Pure hypercholesterolemia, unspecified; E11.42 Type 2 diabetes mellitus with diabetic polyneuropathy

== ENCOUNTER → 2025-02-04 11:17 | Outpatient (BNVA) | payer MEDICARE, MEDICAID, SELFPAY | PROVIDERS: PCP Internal Medicine; Visit Provider Physician Assistant Medical | DX: E11.65 Type 2 diabetes mellitus with hyperglycemia (principal); E11.42 Type 2 diabetes mellitus with diabetic polyneuropathy; E78.00 Pure hypercholesterolemia, unspecified; Z79.4 Long term (current) use of insulin; Z79.85 Long-term (current) use of injectable non-insulin antidiabetic drugs | CPT/HCPCS: 82947; 99212 ==

== ENCOUNTER 2025-02-07 13:54 | Outpatient (AMB) | payer MEDICARE, MEDICAID, SELFPAY ==
--- NOTE | 2025-02-07 14:08 | MHC.PC.OV ---
Vital Signs 02/07/25 14:14 Height 5 ft 1 in Weight 199 lb 6 oz BMI 37.7 BP 124/76 Blood Pressure Location Lt brachial Position Sitting Respiration 18 Pulse 108 H Pulse Source Pulse Oximeter Temp 98.2 F Temp Source Tympanic Pulse Oximetry (%) 95 Oxygen Delivery Method Room Air Intake Visit Reasons: DM Allergies morphine (MORPHINE) Allergy (Intermediate, Verified 02/07/25 14:08) NAUSEA, rash oxycodone (From PERCOCET) Allergy (Intermediate, Verified 02/07/25 14:08) ITCHY, rash penicillin V Allergy (Intermediate, Verified 02/07/25 14:08) hives simvastatin Allergy (Intermediate, Verified 02/07/25 14:08) rash hydrocodone (From VICODIN) Allergy (Mild, Verified 02/07/25 14:08) RASH amoxicillin (Amoxicillin) Allergy (Unknown, Verified 02/07/25 14:08) UNKNOWN Medication List - Last Reconciled 02/07/25 by Gurdeep Villarreal MD aspirin 81 mg PO DAILY 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 sensor ([employer] Clare 3 Plus Sensor device) Apply 1 new sensor every 15 days as directed to monitor blood glucose continuously. 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 (FreeStyle Clare 3 [place]) USE DIRECTED buspirone 5 mg PO ONCE byrzbftxpg-yanutykikfswn-nulr 50-325-40 mg 1 tab PO DAILY PRN clonazepam 1 mg PO TID clonidine HCl 0.2 mg PO DAILY docusate sodium 100 mg PO DAILY empagliflozin (Jardiance) 25 mg PO DAILY gabapentin 400 mg (4 x 100 mg) PO BID galcanezumab-gnlm (Emgality Pen) 120 mg subcut QMONTH insulin aspart (niacinamide) 100 unit/mL (3 mL) (Fiasp FlexTouch U-100 Insulin) 4 units subcut .before dinner insulin glargine-yfgn (Semglee (insulin glargine-yfgn) Pen) 46 units subcut DAILY loratadine 10 mg PO DAILY PRN mupirocin 2% (Centany) 1 appl topical TID omeprazole 20 mg PO BID pen needle, diabetic As directed daily with insulin pen four times daily. quetiapine (Seroquel) 1 tab PO BEDTIME quetiapine 1 tab PO BEDTIME tirzepatide (Mounjaro) 12.5 mg (0.5 mL) subcut QWEEK trazodone 2 tabs PO BEDTIME venlafaxine ER (Effexor XR) 300 mg PO DAILY Tobacco use date assessed: 04/15/23 Dental Screening Dental Screen Date: 04/15/23 HPI HPI Comments History of Present Illness Details History of Present Illness The patient is a 44-year-old obese female presenting for a follow-up on multiple chronic medical problems including diabetes mellitus, hypertension, hypercholesterolemia, migraine, asthma, GERD, and obstructive sleep apnea. She has a history of a CVA in August 2021. The patient also smokes cigarettes. For her diabetes, she follows with endocrinology and uses a continuous glucose monitor. Her last hemoglobin A1c in December was 7.5%. Her last cholesterol check was in July 2024 with an LDL of 62. Her last physical exam was in October 2024 and her last mammogram was in November 2024. She also sees podiatry. Health Maintenance New blood work will be ordered. Advised to eat healthy, drink water, and keep moving. Social History - Substance Use: The patient smokes cigarettes and was strongly advised to stop. - Diet and Exercise: The patient was advised to follow a healthy diet and exercise. Results - Labs: Last hemoglobin A1c was 7.5% in December. - Labs: Last LDL was 62 mg/dL in July 2024. - Labs: Last hemoglobin was 11 g/dL in December. - Imaging: A mammogram was performed in November 2024. [facility] Medical History (Updated 12/14/24 @ 12:31 by Mackenzie Mayers DPM) Onycholysis Anonychia Nail disorder Nail dystrophy Fungal infection of nail Diabetic neuropathy Low vitamin B12 level Tachycardia Diabetes mellitus with hyperglycemia Sleep apnea Hypersomnia Right sided weakness Burping Bloating Difficulty swallowing Screening for hypothyroidism Contusion of right knee Burn Wound cellulitis Neck pain IBS (irritable bowel syndrome) GERD (gastroesophageal reflux disease) Crohn's disease Seizure disorder Tobacco abuse Asthma Hypercholesterolemia Hypertension Obesity (BMI 30-39.9) Anxiety and depression Type 2 diabetes mellitus with hyperglycemia, with long-term current use of insulin Migraine Panic disorder PTSD (post-traumatic stress disorder) OCD (obsessive compulsive disorder) Surgical History H/O bilateral breast reduction surgery H/O arthroscopy History of ankle surgery Previous section Family History Father CVD (cerebrovascular disease) Diabetes Hypertension Mother Depression Chronic mental illness Skin cancer Maternal Grandmother Myocardial infarction CVD (cerebrovascular disease) Breast cancer Maternal Aunt Liver cancer Skin cancer Family/Other PTSD (post-traumatic stress disorder) Migraines Asthma Other Mental health disorder Social History Housing: Apartment Alcohol intake: former Patient Tobacco Use Status: Current everyday Tobacco user Tobacco use type: Cigarette Cigarettes Per Day: 5 Years Smoked: 10/2024) Packs per year/per ci.00 e-Cigarette/Vaping Use: Never Used Second Hand Smoke Exposure: Yes Substance Use Type: Marijuana service: No Current occupational status: unemployed Current occupation: left handed Cognitive needs: No Hearing needs: No Vision needs: Yes (glasses) Questionnaire Thrive Questionnaire Date Thrive assessed: 10/22/24 I am a: Patient What is your living situation today?: I have a steady place to live Within the past 12 months, did the food you bought not last and you didn't have the money to get more?: I choose not to answer this question Within the past 12 months, did you worry whether your food would run out before you got money to buy more?: I choose not to answer this question Do you have trouble paying for medicines?: Yes Do you have trouble getting transportation to medical appointments?: No Do you have trouble paying your heating and electricity bill?: No Do you have trouble taking care of your child, family member or friend?: No Do you have trouble with day-to-day activities such as bathing, preparing meals, shopping, managing finances, etc.?: I choose not to answer this question Are you currently unemployed and looking for a job?: I choose not to answer this question Are you interested in more education?: I choose not to answer this question Currently or been in a relationship where the following occur: I choose not to answer THRIVE Score: 0 LANE-[address] L[address]-7 Date L[address] - 7 assessed: 10/22/24 Source: Developed by Drs. Huang Ellis, Marixa Oneal, Omero Bland and colleagues, with an educational blair from [employer]. Review of Systems Narrative Review of Systems Physical exam (Primary Care) Vital Signs: Last Vital Signs Temp 98.2 F 02/07/25 14:14 Pulse 108 H 02/07/25 14:14 Resp 18 02/07/25 14:14 BP 124/76 02/07/25 14:14 Pulse Ox 95 02/07/25 14:14 Oxygen Delivery Method Room Air 02/07/25 14:14 BMI result Body Mass Index 37.7 Tobacco/Smoking Status: Tobacco use Status Tobacco use date assessed 04/15/23 02/07/25 14:08 Patient Tobacco Use Status Current everyday Tobacco 02/07/25 14:08 Tobacco use type Cigarette 02/07/25 14:08 e-Cigarette/Vaping Use Never Used 02/07/25 14:08 Thrive Assessment: Date of Thrive Assessment Date Thrive assessed 10/22/24 02/07/25 14:08 Currently or been in a relationship where the following occur: I choose not to answer Narrative Physical Exam - Respiratory: Wheezing heard on auscultation. Const General: alert; No acute distress Eyes Conjunctivae: conjunctivae normal Resp Other: bilateral Effort & Inspection: audible wheezes Cardio Rate: regular rate Rhythm: regular rhythm GI Inspection: Yes normal to inspection Extrem General: Yes normal to inspection and No edema Coding Level of Care Code Est Pt Level 4 (58515) Add On Problem Visit Only Diagnoses Type 2 diabetes mellitus with hyperglycemia, with long-term current use of insulin E11.65; Z79.4 Obesity (BMI 30-39.9) E66.9 Essential hypertension I10 Hypertension type: essential hypertension Hypercholesterolemia E78.00 GERD (gastroesophageal reflux disease) K21.9 CVA (cerebral vascular accident) I63.9 YAHIR (obstructive sleep apnea) G47.33 Tobacco abuse Z72.0 Mild intermittent asthma without complication J45.20 Asthma complication type: uncomplicated Asthma persistence: intermittent Asthma severity: mild Assessment & Plan Assessment & Plan (1) Type 2 diabetes mellitus with hyperglycemia, with long-term current use of insulin: Code(s): E11.65 - Type 2 diabetes mellitus with hyperglycemia; Z79.4 - assisted (current) use of insulin Category: Medical Plan: Decrease the amount of carbohydrate intake, pasta, bread, rice and potatoes are all sugar and that is aside from all the sweet stuff, remember that fruits are good but they are Sweet also. Patient follows up with endocrinology and the last hemoglobin A1c in December was 7.5. On Jardiance 25 mg once a day insulin VS short-acting and seemingly 46 units on Mounjaro 12.5 mg once a week (2) Obesity (BMI 30-39.9): Code(s): E66.9 - Obesity, unspecified Category: Medical Plan: Diet and exercise (3) Hypertension: Code(s): I10 - Essential (primary) hypertension Category: Medical Qualifiers: Hypertension type: essential hypertension Qualified Code(s): I10 - Essential (primary) hypertension Plan: Continue with blood pressure medication. Decrease salt intake and exercise continue to monitor (4) Hypercholesterolemia: Code(s): E78.00 - Pure hypercholesterolemia, unspecified Category: Medical Plan: Avoid fried foods, chicken skin, eggs, butter margarine, pastries and meat. Be it pork or beef they have a lot of cholesterol LDL goal of less than 70 and triglyceride of less than 150 patient is diet controlled (5) GERD (gastroesophageal reflux disease): Code(s): K21.9 - Gastro-esophageal reflux disease without esophagitis Category: Medical Plan: Avoid the foods that causes that usually spicy foods, tomato products, juices, coffee, soda and foods that your sensitive to. After eating do not lie down, allow 3-4 hours before in lie down. And keep the head of bed above 30 degrees to avoid the acid from going up. (6) CVA (cerebral vascular accident): Comment: August 2021 right-sided weakness Code(s): I63.9 - Cerebral infarction, unspecified Category: Medical Plan: Control the cholesterol, weight, blood pressure, diabetes. Patient is recommended to be on aspirin 81 mg once a day (7) YAHIR (obstructive sleep apnea): Comment: Severe degree of YAHIR. The total AHI was 41/hr and oxygen valdemar was 75%. Code(s): G47.33 - Obstructive sleep apnea (adult) (pediatric) Category: Medical Plan: Discussed about getting CPAP treatment (8) Tobacco abuse: Code(s): Z72.0 - Tobacco use Category: Medical Plan: Patient is strongly advised to stop smoking! (9) Asthma: Code(s): J45.909 - Unspecified asthma, uncomplicated Category: Medical Qualifiers: Asthma complication type: uncomplicated Asthma persistence: intermittent Asthma severity: mild Qualified Code(s): J45.20 - Mild intermittent asthma, uncomplicated Plan: Patient is strongly advised to stop smoking , not ready to stop! Plan Plan Patient was informed and verbally consented to the use of an ambient scribe for clinic note documentation during this visit. 1. Diabetes Mellitus The patient will continue to follow up with endocrinology, with her last hemoglobin A1c being 7.5% in December. Her electric razor mechanic decreased Lantus to 46 units and increased Mounjaro to 12.5 mg weekly. She will continue Jardiance 25 mg daily, Fiasp short-acting insulin, and Semglee 46 units. Advised to continue with diet and exercise, and to continue using her continuous glucose monitor. 2. Hypertension Continue to monitor blood pressure. 3. Hypercholesterolemia The patient will continue taking Crestor with a goal LDL of less than 70 mg/dL and triglycerides less than 150 mg/dL. 4. History Of Cerebrovascular Accident The patient is recommended to be on aspirin 81 mg daily for secondary prevention. 5. Obstructive Sleep Apnea Discussed pursuing CPAP treatment. The importance of weight loss as an alternative treatment if she is unable to tolerate CPAP was explained, as sleep apnea puts a strain on the heart. 6. Gastroesophageal Reflux Disease The patient will continue to manage her GERD with diet control. 7. Tobacco Use Disorder The patient was strongly advised to stop smoking. Discussion Notes I advised the patient that we will obtain new blood work to see how her numbers are. I counseled her on the importance of staying hydrated, eating a healthy diet, and staying active. I explained that obstructive sleep apnea is a serious condition that puts a strain on the heart and discussed initiating CPAP treatment. I informed her that if she cannot tolerate CPAP, significant weight loss is necessary. I strongly advised her to stop smoking. Patient Instructions - Your Lantus insulin dose has been decreased to 46 units, and your Mounjaro has been increased to 12.5 mg weekly. - Continue taking your Jardiance, Crestor, and other prescribed insulins as directed. - It is recommended you take aspirin 81 mg every day. - Please go to the lab to have new blood work drawn. - It is very important that you stop smoking. - We discussed using a CPAP machine for your sleep apnea. If you cannot use it, it is very important to lose weight to protect your heart. - Remember to drink plenty of water, eat a healthy diet, and stay active. - Continue to follow up with your electric razor mechanic and chute tender. Medications: New aspirin 81 mg PO DAILY 90 tabs 3RF Refilled galcanezumab-gnlm (Emgality Pen) 120 mg subcut QMONTH 1 mL 2RF ylbdwyfeyn-dghmxotgbuxys-itli 50-325-40 mg 1 tab PO DAILY PRN 10 tabs 0RF pain
[2025-02-07 14:14] VITALS: BP 124/76; PULSE 108; RESP 18; TEMP 36.8; O2SAT 95; BMI 37.7
--- OUTSIDE RECORDS SUMMARY | 2025-02-07 17:26 | XMS_ITS | Patient Health Record ---
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 Terry at [facility] 07/18/2010 Active Plan Of Treatment No Information Insurance Providers Payer Name Payer Address Payer Phone Subscriber Number Group Number Insured Name Patient Relationship to Insured Coverage Start Date Coverage End Date MEDICARE B [address] [place] [id number] Darlene Godfrey Self - patient is the insured [place] [employer] [employer] [address] [place] [address] [id number] Darlene Godfrey Self - patient is the insured
== END 2025-02-07 15:55 | disposition home or self-care (01) ==
LOC: HO.HMCH 13:55
PROVIDERS: PCP Internal Medicine; Visit Provider Internal Medicine
DX: E11.65 Type 2 diabetes mellitus with hyperglycemia (principal); Z79.4 Long term (current) use of insulin; I63.9 Cerebral infarction, unspecified; E66.9 Obesity, unspecified; Z68.37 Body mass index [BMI] 37.0-37.9, adult; I10 Essential (primary) hypertension; E78.00 Pure hypercholesterolemia, unspecified; K21.9 Gastro-esophageal reflux disease without esophagitis; G47.33 Obstructive sleep apnea (adult) (pediatric); Z72.0 Tobacco use; J45.20 Mild intermittent asthma, uncomplicated

== ENCOUNTER → 2025-02-07 13:54 | Outpatient (BNVA) | payer MEDICARE, MEDICAID, SELFPAY | PROVIDERS: PCP Internal Medicine; Visit Provider Internal Medicine | DX: E11.65 Type 2 diabetes mellitus with hyperglycemia (principal); Z79.4 Long term (current) use of insulin; E66.9 Obesity, unspecified; I10 Essential (primary) hypertension; E78.00 Pure hypercholesterolemia, unspecified; K21.9 Gastro-esophageal reflux disease without esophagitis; I63.9 Cerebral infarction, unspecified; G47.33 Obstructive sleep apnea (adult) (pediatric); J45.20 Mild intermittent asthma, uncomplicated; Z72.0 Tobacco use | CPT/HCPCS: 99212 ==